=== PATIENT | female | born 1955 | race Two or more races ===

== ENCOUNTER → 2020-06-14 14:02 | Outpatient (BNVA) | payer OTHER, SELFPAY | PROVIDERS: PCP Internal Medicine Geriatric Medicine; Referring Provider Internal Medicine Geriatric Medicine; Visit Provider Nurse Practitioner | DX: K59.04 Chronic idiopathic constipation (principal); K58.1 Irritable bowel syndrome with constipation; K21.9 Gastro-esophageal reflux disease without esophagitis; K57.92 Diverticulitis of intestine, part unspecified, without perforation or abscess without bleeding; Z79.899 Other long term (current) drug therapy | CPT/HCPCS: 99212 ==

== ENCOUNTER 2020-06-21 14:03 | Outpatient (REF) | payer OTHER, SELFPAY | END 2020-06-21 14:04 | disposition home or self-care (01) | LOC: HO.LNP 14:03 | PROVIDERS: Visit Provider Otolaryngology | DX: B49 Unspecified mycosis (principal) | CPT/HCPCS: 87101; 87107 ==

== ENCOUNTER 2020-07-10 16:34 | Outpatient (REF) | payer OTHER, SELFPAY | END 2020-07-10 16:35 | disposition home or self-care (01) | LOC: HO.LAB 16:34 | PROVIDERS: Visit Provider Internal Medicine | DX: Z20.828 Contact with and (suspected) exposure to other viral communicable diseases (principal) | CPT/HCPCS: C9803; U0003 ==

== ENCOUNTER → 2020-12-17 12:51 | Outpatient (BNVA) | payer OTHER, SELFPAY | PROVIDERS: PCP Internal Medicine Geriatric Medicine; Visit Provider Nurse Practitioner | CPT/HCPCS: Q3014 ==

== ENCOUNTER 2021-04-03 10:29 | Outpatient (REF) | payer OTHER, SELFPAY ==
--- NOTE | ~2021-04-03 | MM_ITS ---
EXAMINATION: MM SCREENING DIGITAL BREAST TOMOSYNTHESIS, BILATERAL CLINICAL INFORMATION: Screening. Asymptomatic. The lifetime risk of breast cancer based on the Tyrer-Cuzick Model is 3.6%. COMPARISON: Mammography: 04/03/2020 and studies dating back to 02/01/2014 TECHNIQUE: Digital breast tomosynthesis is performed in both the craniocaudal and mediolateral oblique views along with computer-aided detection (CAD). Synthesized 2D images are generated from the tomosynthesis. FINDINGS: There are scattered areas of fibroglandular density (ACR BI-RADS breast composition Category b). There is a stable parenchymal pattern of the left breast. Within the anterosuperior aspect of the right breast, there is a new grouping of somewhat punctate calcifications however, adjacent to these there is question of microcalcifications and spot magnification views in craniocaudal and 90 degree mediolateral views of the right breast are recommended. Radiology staff will contact patient to obtain these studies. MM/MM tomosynthesis screening BI IMPRESSION: Right breast calcifications for which further evaluation with spot magnification views in craniocaudal and 90 degrees mediolateral views are recommended. ASSESSMENT: BI-RADS 0: Incomplete - Need Additional Imaging Evaluation RECOMMENDATION: 1. Additional views of the right breast 2. Targeted ultrasound if warranted after review of the additional views. 3. Radiology department staff will contact the patient for additional imaging. This patient's information was entered into a reminder system with a target due date for their next mammogram.
== END 2021-04-03 10:30 | disposition home or self-care (01) ==
LOC: HO.MAMMO 10:29
PROVIDERS: PCP Internal Medicine Geriatric Medicine; Visit Provider Internal Medicine Geriatric Medicine
DX: Z12.31 Encounter for screening mammogram for malignant neoplasm of breast (principal)
CPT/HCPCS: 77063; 77067

== ENCOUNTER 2021-04-11 10:49 | Outpatient (REF) | payer OTHER, SELFPAY ==
--- NOTE | ~2021-04-11 | MM_ITS ---
EXAMINATION: MM DIAGNOSTIC DIGITAL MAMMOGRAPHY, RIGHT CLINICAL INFORMATION: Recall from screening for new calcifications anterior upper right breast. COMPARISON: Mammography: 04/03/2021, 04/03/2020 TECHNIQUE: Digital mammography is performed in the following views: Magnification CC, magnification ML FINDINGS: There are scattered areas of fibroglandular density (ACR BI-RADS breast composition Category b). The additional views demonstrate loosely grouped relatively coarse round and oval calcifications of variable size anterior 11:30 o'clock position 5-8 in number. They have a benign appearance, possibly calcification fibroadenomatous changes. Management plan is for short interval follow-up right mammography to include magnification views in 6 months. Results are discussed with the patient at time of visit. MM/MM added views RT IMPRESSION: New loosely grouped probable benign relatively coarse calcifications anterior upper right breast. ASSESSMENT: BI-RADS 3: Probably Benign RECOMMENDATION: Diagnostic right mammography in 6 months. This patient's information was entered into a reminder system with a target due date for their next mammogram.
== END 2021-04-11 10:50 | disposition home or self-care (01) ==
LOC: HO.MAMMO 10:49
PROVIDERS: Visit Provider Internal Medicine Geriatric Medicine
DX: R92.1 Mammographic calcification found on diagnostic imaging of breast (principal)
CPT/HCPCS: 77065

== ENCOUNTER → 2021-05-12 09:53 | Outpatient (BNVA) | payer OTHER, SELFPAY | PROVIDERS: PCP Internal Medicine Geriatric Medicine; Visit Provider Nurse Practitioner | CPT/HCPCS: Q3014 ==

== ENCOUNTER 2021-05-14 11:17 | Outpatient (REF) | payer OTHER, SELFPAY ==
[2021-05-14 11:39] LABS: MANUAL DIFF FLAG NO
[2021-05-14 11:59] LABS: Basophils Absolute Auto 0.1 X10*3/uL (0.0-0.2); Basophils Percent Auto 0.9 % (0-2); Eosinophils Absolute Auto 0.1 X10*3/uL (0.0-0.4); Eosinophils Percent Auto 2.1 % (0-4); Hematocrit 40.5 % (37-47); Hemoglobin 12.9 g/dl (12.0-16.0); Imm Gran Abs Auto 0.02 X10*3/uL (0.00-0.03); Imm Gran Pct Auto 0.3 % (0.0-0.4); Lymphocytes Absolute Auto 2.5 X10*3/uL (1.2-4.9); Lymphocytes Percent Auto 38.1 % (20-40); Mean Corpuscular HGB Conc 31.9 g/dl (31.0-35.0); Mean Corpuscular Volume 84.9 fL (80-98); Mean Platelet Volume 11.8 fL (9.4-12.3); Monocytes Absolute Auto 0.5 X10*3/uL (0.1-1.2); Monocytes Percent Auto 6.9 % (2-11); Neutrophils Absolute Auto 3.4 X10*3/uL (2.0-8.3); Neutrophils Percent Auto 51.7 % (45-73); Platelet Count 216 X10*3/uL (160-400); Red Blood Count 4.77 X10*6/uL (4.20-5.50); Red Cell Distribution Width 13.5 % (11.0-16.0); White Blood Count 6.6 X10*3/uL (4.8-10.8)
[2021-05-14 12:21] LABS: Alanine Aminotransferase 47 U/L (0-31); Albumin Level 4.4 g/dL (3.5-5.0); Alkaline Phosphatase 109 U/L (39-117); Amylase 80 U/L (28-100); Anion Gap 14 (12-20); Aspartate Amino Transferase 26 U/L (5-31); Bilirubin Total 0.4 mg/dL (0.0-1.0); Blood Urea Nitrogen 15 mg/dL (9-16); Calcium 9.6 mg/dL (8.4-10.2); Carbon Dioxide 28 mmol/L (22-29); Chloride 104 mmol/L (96-108); Estimated Glomerular Filt Rate 47; Glucose Random 165 mg/dL (60-115); Lipase 29 U/L (8-78); Potassium 4.4 mmol/L (3.3-5.1); Sodium 142 mmol/L (135-145); Total Protein 6.7 g/dL (6.5-8.0)
== END 2021-05-14 11:18 | disposition home or self-care (01) ==
LOC: HO.LAB 11:17
PROVIDERS: PCP Internal Medicine Geriatric Medicine; Visit Provider Nurse Practitioner
DX: R10.12 Left upper quadrant pain (principal); R11.2 Nausea with vomiting, unspecified
CPT/HCPCS: 36415; 80053; 82150; 83690; 85025

== ENCOUNTER 2021-06-05 08:39 | Outpatient (REF) | payer OTHER, SELFPAY ==
--- NOTE | ~2021-06-05 | CT_ITS ---
EXAMINATION: CT ABDOMEN AND PELVIS WITH CONTRAST CLINICAL INFORMATION: Nausea and vomiting COMPARISON: Previous CT of the abdomen and pelvis most recent April 2020 TECHNIQUE: Multidetector volumetric images were obtained from the superior aspect of the liver through the pubic symphysis following administration 85 mL of Omnipaque 350 intravenous contrast. Sagittal and coronal reformatted images were obtained on the technologist's workstation. Oral contrast: Yes This CT examination was performed using dose optimization techniques as appropriate, variously including the following: *Automated exposure control *Adjustment of mA and/or kV according to patient size (this includes techniques or standardized protocols for targeted exams where dose is matched to indication/reason for exam; i.e. extremities or head) *Use of iterative reconstruction technique DLP: 310 mGy-cm FINDINGS: LUNG BASES: The visualized lung bases are unremarkable. LIVER, GALLBLADDER, AND BILIARY TREE: The liver is low in attenuation suggestive of fatty infiltration. No focal liver lesion or biliary ductal dilatation the gallbladder has been removed. PANCREAS: Unremarkable. SPLEEN: Unremarkable. ADRENAL GLANDS: Unremarkable. KIDNEYS AND URETERS: The kidneys are normal in size, shape, and attenuation. No hydronephrosis, hydroureter, or calculi seen. No perinephric stranding. BLADDER: Unremarkable. GASTROINTESTINAL TRACT: There is mild wall thickening, mucosal enhancement and dilatation of the distal colon suggestive of possible mild colitis. The vasa recta appears slightly prominent. This is similar in distribution to April 2020 exam. No evidence of obstruction, perforation or abscess is seen. Small and large bowel is otherwise unremarkable. The appendix is unremarkable. The stomach is unremarkable. ABDOMINAL WALL: No significant hernia is appreciated. LYMPH NODES: Normal. VASCULAR: Unremarkable. PELVIC VISCERA: Unremarkable. OSSEOUS STRUCTURES: There are degenerative changes of the spine. CT/CT abdomen pelvis w con IMPRESSION: Mild colitis of the distal colon. Fatty liver.
[2021-06-05] MEDS: Barium Sulfate Oral (Mocha) 450 ML ORAL.SUSP 900 ML PO (12:08)
[2021-06-05] MEDS: iohexoL 350 MG/ML 100 ML INFUS..BTL IV (12:08)
== END 2021-06-05 08:40 | disposition home or self-care (01) ==
LOC: HO.CT 08:39
PROVIDERS: Visit Provider Nurse Practitioner
DX: R10.12 Left upper quadrant pain (principal); R10.32 Left lower quadrant pain; R11.2 Nausea with vomiting, unspecified
CPT/HCPCS: 74177; Q9967

== ENCOUNTER → 2021-06-06 11:35 | Outpatient (BNVA) | payer OTHER, SELFPAY | PROVIDERS: PCP Internal Medicine Geriatric Medicine; Referring Provider Internal Medicine Geriatric Medicine; Visit Provider Nurse Practitioner | DX: K59.04 Chronic idiopathic constipation (principal); K21.9 Gastro-esophageal reflux disease without esophagitis; K52.9 Noninfective gastroenteritis and colitis, unspecified; R14.0 Abdominal distension (gaseous) | CPT/HCPCS: Q3014 ==

== ENCOUNTER → 2021-07-16 10:11 | Outpatient (BNVA) | payer OTHER, SELFPAY | PROVIDERS: PCP Internal Medicine Geriatric Medicine; Referring Provider Internal Medicine Geriatric Medicine; Visit Provider Nurse Practitioner | DX: K58.1 Irritable bowel syndrome with constipation (principal); K21.9 Gastro-esophageal reflux disease without esophagitis; K57.92 Diverticulitis of intestine, part unspecified, without perforation or abscess without bleeding; R10.9 Unspecified abdominal pain; R14.0 Abdominal distension (gaseous); B37.7 Candidal sepsis | CPT/HCPCS: 99212 ==

== ENCOUNTER → 2021-08-29 13:27 | Outpatient (BNVA) | payer OTHER, SELFPAY | PROVIDERS: PCP Internal Medicine Geriatric Medicine; Referring Provider Internal Medicine Geriatric Medicine; Visit Provider Nurse Practitioner | DX: K58.1 Irritable bowel syndrome with constipation (principal); K21.9 Gastro-esophageal reflux disease without esophagitis; K59.04 Chronic idiopathic constipation; R14.0 Abdominal distension (gaseous) | CPT/HCPCS: 99212 ==

== ENCOUNTER → 2021-10-17 16:18 | Outpatient (BNVA) | payer OTHER, SELFPAY | PROVIDERS: PCP Internal Medicine Geriatric Medicine; Referring Provider Internal Medicine Geriatric Medicine; Visit Provider Nurse Practitioner | DX: K59.04 Chronic idiopathic constipation (principal); K21.9 Gastro-esophageal reflux disease without esophagitis; R14.0 Abdominal distension (gaseous); Z79.899 Other long term (current) drug therapy | CPT/HCPCS: 99212 ==

== ENCOUNTER 2021-10-23 14:22 | Outpatient (REF) | payer OTHER, SELFPAY ==
--- NOTE | ~2021-10-23 | MM_ITS ---
EXAMINATION: MM DIAGNOSTIC DIGITAL BREAST TOMOSYNTHESIS, RIGHT CLINICAL INFORMATION: Short interval follow-up probable benign calcifications anterior upper right breast. The lifetime risk of breast cancer based on the Tyrer-Cuzick Model is 4%. COMPARISON: Mammography: 04/11/2021, 04/03/2021 (BI-RADS 0), 04/03/2020 TECHNIQUE: Digital breast tomosynthesis is performed in both the craniocaudal and mediolateral oblique views along with computer-aided detection (CAD). Synthesized 2D images are generated from the tomosynthesis. Additional magnification CC and magnification ML views are obtained. FINDINGS: There are scattered areas of fibroglandular density (ACR BI-RADS breast composition Category b). Parenchymal pattern is similar to prior studies. There is no developing density or interval mass or architectural abnormality. Calcifications for follow-up appear benign. There is some coalescing of the calcifications consistent with benign change. Calcifications will be reassessed again at time of annual bilateral mammography, due in 6 months. Results are provided to the patient at time of visit by the technologist. MM/MM tomosynthesis diagnostic RT IMPRESSION: No mammographic evidence of malignancy. ASSESSMENT: BI-RADS 3: Probably Benign RECOMMENDATION: Diagnostic mammography at time of annual bilateral exam, due in 6 months. This patient's information was entered into a reminder system with a target due date for their next mammogram.
== END 2021-10-23 14:23 | disposition home or self-care (01) ==
LOC: HO.MAMMO 14:22
PROVIDERS: PCP Internal Medicine Geriatric Medicine; Visit Provider Internal Medicine Geriatric Medicine
DX: R92.1 Mammographic calcification found on diagnostic imaging of breast (principal)
CPT/HCPCS: 77061; 77065

== ENCOUNTER 2021-12-12 13:55 | Outpatient (REF) | payer OTHER, SELFPAY ==
--- NOTE | ~2021-12-12 | XR_ITS ---
EXAMINATION: XR ABDOMEN WITH DECUBITUS VIEWS CLINICAL INDICATION: Left lower quadrant abdominal pain. COMPARISON: Abdominal radiograph done on 05/06/2020. TECHNIQUE: Supine and upright frontal view of the abdomen and pelvis. FINDINGS: Multiple distended small bowel loops associated with multilevel air-fluid levels are noted, suspicious for obstruction versus ileus. XR/XR abdomen w decubitus IMPRESSION: Abnormal distended bowel loops with air-fluid level, may represent ileus versus obstruction, new since 04/28/2020.
[2021-12-12 15:11] LABS: MANUAL DIFF FLAG NO
[2021-12-12 15:53] LABS: Basophils Absolute Auto 0.1 X10*3/uL (0.0-0.2); Eosinophils Absolute Auto 0.7 X10*3/uL (0.0-0.4); Hematocrit 39.3 % (37.0-47.0); Hemoglobin 12.3 g/dl (12.0-16.0); Imm Gran Abs Auto 0.02 X10*3/uL (0.00-0.03); Imm Gran Pct Auto 0.2 % (0.0-0.4); Lymphocytes Absolute Auto 3.4 X10*3/uL (1.2-4.9); Lymphocytes Percent Auto 41.6 % (20-40); Mean Corpuscular HGB Conc 31.3 g/dl (31.0-35.0); Mean Corpuscular Hemoglobin 26.2 pg (27.0-33.0); Mean Corpuscular Volume 83.6 fL (80.0-98.0); Mean Platelet Volume 11.9 fL (9.4-12.3); Monocytes Absolute Auto 0.6 X10*3/uL (0.1-1.2); Monocytes Percent Auto 7.1 % (2-11); Neutrophils Absolute Auto 3.3 x10*3/uL (2.0-8.3); Neutrophils Percent Auto 41.1 % (45-73); Platelet Count 270 X10*3/uL (160-400); Red Cell Distribution Width 13.4 % (11.0-16.0); White Blood Count 8.1 X10*3/uL (4.8-10.8)
[2021-12-12 16:23] LABS: Alanine Aminotransferase 18 U/L (0-31); Albumin Level 4.3 g/dL (3.5-5.0); Alkaline Phosphatase 113 U/L (39-117); Anion Gap 12 (12-20); Aspartate Amino Transferase 17 U/L (5-31); Bilirubin Total 0.4 mg/dL (0.0-1.0); Blood Urea Nitrogen 12 mg/dL (9-16); Calcium 9.8 mg/dL (8.4-10.2); Carbon Dioxide 27 mmol/L (22-29); Chloride 104 mmol/L (96-108); Estimated Glomerular Filt Rate 52; Glucose Random 121 mg/dL (60-115); Potassium 4.3 mmol/L (3.3-5.1); Sodium 139 mmol/L (135-145); Total Protein 6.7 g/dL (6.5-8.0)
[2021-12-12 16:44] LABS: TSH reflex Free T4 0.49 uIU/mL (0.32-4.0)
== END 2021-12-12 13:56 | disposition home or self-care (01) ==
LOC: HO.LAB 13:55
PROVIDERS: PCP Internal Medicine Geriatric Medicine; Referring Provider Internal Medicine Geriatric Medicine; Visit Provider Nurse Practitioner
DX: R10.32 Left lower quadrant pain (principal); K52.9 Noninfective gastroenteritis and colitis, unspecified; R14.0 Abdominal distension (gaseous); K59.04 Chronic idiopathic constipation; K21.9 Gastro-esophageal reflux disease without esophagitis
CPT/HCPCS: 36415; 74021; 80053; 84443; 85025; 99212

== ENCOUNTER 2021-12-12 18:02 | Observation (INO) | payer OTHER, SELFPAY ==
[2021-12-12] VITALS (7 sets, daily range): BP systolic 100–103; BP diastolic 60–71; PULSE 79–95; RESP 15–18; TEMP 36.4–36.9; O2SAT 96–97; BMI 25.4
--- NOTE | ~2021-12-12 | CT_ITS ---
EXAMINATION: CT ABDOMEN AND PELVIS WITHOUT CONTRAST CLINICAL INFORMATION: Ileus vs. obstruction on KUB. COMPARISON: CT 06/05/2021 TECHNIQUE: Multidetector volumetric imaging was performed from the lung bases through the pubic symphysis. Sagittal and coronal reformatted images were obtained on the technologist workstation. This CT examination was performed using dose optimization techniques as appropriate, variously including the following: *Automated exposure control *Adjustment of mA and/or kV according to patient size (this includes techniques or standardized protocols for targeted exams where dose is matched to indication/reason for exam; i.e. extremities or head) *Use of iterative reconstruction technique FINDINGS: The lack of intravenous contrast limits evaluation of the solid visceral organs including the liver, spleen, pancreas, and kidneys. LUNG BASES: Trace bilateral pleural effusions. Mild bibasilar atelectasis. Small pericardial effusion. Normal heart size. LIVER, GALLBLADDER, AND BILIARY TREE: Diffuse hepatic steatosis particularly involving the right lobe of liver anteriorly, segments 5 and 8. Lack of intravenous contrast limits evaluation. No focal liver lesion. Status post cholecystectomy. Status post cholecystectomy. Mild prominence of the common bile duct, not unexpected status post cholecystectomy. No intrahepatic biliary ductal dilatation. PANCREAS: Limited non-contrast evaluation is normal. No yoko-pancreatic fluid. SPLEEN: Limited non-contrast evaluation is normal. ADRENAL GLANDS: Normal; no adrenal mass. KIDNEYS AND URETERS: 2-3 mm nonobstructing right lower pole calculus. Punctate 1 mm right upper pole calculus. No hydronephrosis or hydroureter. GASTROINTESTINAL TRACT: Stomach is collapsed. Small bowel is nondilated. Nondilated but fluid-filled loops of small bowel are seen in the left abdomen. Normal appendix. There is fluid throughout the colon consistent with diarrhea. No abnormal colonic wall thickening or pericolonic inflammatory changes. ABDOMINAL WALL: No hernia seen. LYMPH NODES: No pathologically enlarged lymph nodes in the abdomen or pelvis. VASCULAR: Normal caliber abdominal aorta. BLADDER: Unremarkable. PELVIC VISCERA: Normal CT appearance of the uterus and ovaries. OSSEOUS STRUCTURES: No acute or suspicious osseous abnormalities. Lower lumbar facet arthropathy. CT/CT abdomen pelvis wo con IMPRESSION: Fluid-filled colon suggest diarrhea. No evidence of bowel obstruction. No bowel wall thickening to suggest colitis. Nonobstructing right renal calculi.
--- NOTE | ~2021-12-12 | XR_ITS ---
EXAMINATION: XR ABDOMEN KUB CLINICAL INDICATION: Abdominal distention. COMPARISON: KUB from 12/12/2021 TECHNIQUE: AP view of the abdomen. FINDINGS: Lung bases are clear. Bowel gas pattern is normal. The bowel gas is observed to level the rectum. Cholecystectomy clips in the right upper abdomen. No evidence of pneumoperitoneum. Phleboliths in the right lower pelvis. A small stone of the lower pole of the right kidney observed on abdomen CT is not well seen radiographically. XR/XR KUB IMPRESSION: Bowel gas pattern is normal. There are no abnormally dilated bowel loops. No bowel obstruction.
[2021-12-12 19:16] LABS: MANUAL DIFF FLAG NO
[2021-12-12 19:18] LABS: Basophils Absolute Auto 0.1 X10*3/uL (0.0-0.2); Basophils Percent Auto 0.7 % (0-2); Eosinophils Absolute Auto 0.6 X10*3/uL (0.0-0.4); Eosinophils Percent Auto 6.1 % (0-4); Hematocrit 37.4 % (37.0-47.0); Imm Gran Abs Auto 0.02 X10*3/uL (0.00-0.03); Imm Gran Pct Auto 0.2 % (0.0-0.4); Lymphocytes Absolute Auto 3.1 X10*3/uL (1.2-4.9); Lymphocytes Percent Auto 32.7 % (20-40); Mean Corpuscular HGB Conc 32.1 g/dl (31.0-35.0); Mean Corpuscular Hemoglobin 26.8 pg (27.0-33.0); Mean Corpuscular Volume 83.5 fL (80.0-98.0); Mean Platelet Volume 11.1 fL (9.4-12.3); Monocytes Absolute Auto 0.5 X10*3/uL (0.1-1.2); Monocytes Percent Auto 4.9 % (2-11); Neutrophils Absolute Auto 5.2 x10*3/uL (2.0-8.3); Neutrophils Percent Auto 55.4 % (45-73); Platelet Count 254 X10*3/uL (160-400); Red Blood Count 4.48 X10*6/uL (4.20-5.50); Red Cell Distribution Width 13.3 % (11.0-16.0); White Blood Count 9.5 X10*3/uL (4.8-10.8)
[2021-12-12 19:39] LABS: Alanine Aminotransferase 21 U/L (0-31); Albumin Level 4.1 g/dL (3.5-5.0); Alkaline Phosphatase 110 U/L (39-117); Anion Gap 13 (12-20); Aspartate Amino Transferase 17 U/L (5-31); Bilirubin Total 0.3 mg/dL (0.0-1.0); Blood Urea Nitrogen 14 mg/dL (9-16); Calcium 9.3 mg/dL (8.4-10.2); Carbon Dioxide 25 mmol/L (22-29); Chloride 106 mmol/L (96-108); Creatinine Clr Calc Pharmacy 45.8; Estimated Glomerular Filt Rate 53; Glucose Random 107 mg/dL (60-115); Potassium 4.1 mmol/L (3.3-5.1); Sodium 140 mmol/L (135-145); Total Protein 6.6 g/dL (6.5-8.0)
--- NOTE | 2021-12-12 19:53 | ED.ABDPAIN ---
HPI - Abdominal Pain General Chief Complaint: Abdominal Pain Stated Complaint: Abnormal labs sent by GI doctor Time Seen by Provider: 12/12/21 19:57 Source: patient Mode of arrival: ambulatory Limitations: no limitations History of Present Illness HPI narrative: 66-year-old female presents with 1 week of abdominal pain, abdominal distention, nausea, vomiting and 1 day of inability to pass flatus or stools. Patient was only able to drink water this morning has not had any other p.o. intake. Was seen by Gastroenterology today KUB indicated obstruction versus ileus. Patient is in 05/18 pain. MD elicited complaint: abdominal pain Onset (ago): week(s) (1) Pain Consistency: constant Location: diffuse Severity: severe Pain scale (0-10): 10 Quality: aching and fullness Radiation: none Migration to: no migration Exacerbating factors: eating, vomiting and movement Relieving factors: nothing Associated symptoms: nausea, vomiting and anorexia Related Data Home Medications Medication Instructions Recorded Confirmed acetaminophen 500 mg tablet 1,000 mg PO Q6H PRN 12/17/20 12/13/21 clotrimazole 1 % topical cream 1 appl TOPICAL BID 12/17/20 12/13/21 alprazolam 1 mg tablet 1 tab PO QID PRN 12/12/21 12/13/21 blood sugar diagnostic (FreeStyle 12/13/21 12/13/21 Lite Strips) brimonidine 0.2 %-timolol 0.5 % 1 drp OPHTHALMIC-RIGHT BID 12/13/21 12/13/21 eye drops (Combigan) hydrocortisone-acetic acid 1 %-2 % 5 drp OTIC (EAR) LEFT BID 12/13/21 12/13/21 ear drops linaclotide 290 mcg capsule 1 cap PO DAILY 12/13/21 12/13/21 (Linzess) kvkgnp-yyqlnfme-velhnjt 1 cap PO QID 12/13/21 12/13/21 24,000-76,000-120,000 unit capsule,delayed rel (Creon) magnesium hydroxide 400 mg/5 mL 5 ml PO BID 12/13/21 12/13/21 oral suspension (Milk of Magnesia) metformin 1,000 mg tablet 1 tab PO 12/13/21 methylphenidate HCl 10 mg tablet 1 tab PO DAILY 12/13/21 12/13/21 metoclopramide HCl 10 mg tablet 1 tab PO QID 12/13/21 12/13/21 prazosin 2 mg capsule 3 cap PO BEDTIME 12/13/21 12/13/21 prucalopride 2 mg tablet 1 tab PO DAILY 12/13/21 12/13/21 (Motegrity) quetiapine 400 mg tablet,extended 1 tab PO BEDTIME 12/13/21 12/13/21 release 24 hr sennosides 8.6 mg tablet (senna) 2 tab PO BEDTIME PRN 12/13/21 12/13/21 simethicone 180 mg capsule 1 cap PO QID 12/13/21 12/13/21 venlafaxine 150 mg 1 cap PO QAM 12/13/21 12/13/21 capsule,extended release 24 hr zolpidem 10 mg tablet 1 tab PO BEDTIME 12/13/21 12/13/21 Previous Rx's Medication Instructions Recorded omeprazole 40 mg capsule,delayed 40 mg PO DAILY #90 cap 09/08/21 release magnesium oxide 500 mg capsule 500 mg PO BID #60 cap 10/17/21 Allergies Allergy/AdvReac Type Severity Reaction Status Date / Time No Known Allergies Allergy Verified 12/12/21 19:09 [No Known Allergies*] Review of Systems Review of Systems Constitutional: No Weight loss, No Fever, No Chills, No Night Sweats, No Fatigue, No Malaise ENT/Mouth: No Hearing loss, No Ear Pain, No Nasal Congestion, No Sinus Pain, No Hoarseness, No sore throat, No Rhinorrhea, No Swallowing Difficulty Eyes: No Eye Pain, No Swelling, No Redness, No Foreign Body, No Discharge, No Vision Changes Cardiovascular: No Chest Pain, No SOB, No Dyspnea on Exertion, No Orthopnea, No Edema, No Palpitations Respiratory: No Cough, No Sputum, No Wheezing, No Smoke Exposure, No Dyspnea Gastrointestinal: Positive Nausea, Positive Vomiting, no Diarrhea, positive abdominal Pain, No Hematochezia, No Melena Genitourinary: no irregular bleeding, No Dysuria, No Urinary Frequency, No Hematuria, No Urinary Incontinence, No Urgency, No Flank Pain, No Urinary Flow Changes, No Hesitancy Musculoskeletal: No joint pain, No Myalgias, No Joint Swelling Skin: No Skin Lesions, No rash Neuro: No Weakness, No Numbness, No Paresthesias, No Loss of Consciousness, No Dizziness, No Headache Psych: No Anxiety/Panic, No Depression, No SI/HI/AH/VH, No Social Issues Heme/Lymph: No Bruising, No Bleeding,No Lymphadenopathy Endocrine: No Polyuria, No Polydipsia, No Temperature Intolerance Yes all other systems are reviewed and are negative [facility] Past Medical History Attestation statement: The following information was validated with the patient. Source: old records reviewed Medical History History of pancreatitis Surgical History History of esophagogastroduodenoscopy (EGD) Hx of colonoscopy Family History Family History Father No problems noted. Mother Diabetes Melanoma Family history of hypertension Family history of diabetes mellitus Social History Social History Household Members: None Alcohol intake: never Patient Tobacco Use Status: Never used Tobacco Use of substances other than those prescribed or required for medical reasons: No Advance Directives: No Advance Directives Information Provided: Yes Patient : No Physical Exam ED Vital Signs: Vital Signs - 24 hr 12/12/21 19:06 12/12/21 19:48 12/12/21 20:20 Temperature 97.6 F 97.6 F Pulse Rate 95 90 Respiratory Rate 18 16 15 Blood Pressure 102/60 103/71 Pulse Oximetry 97 97 12/12/21 22:04 12/12/21 22:05 12/12/21 22:06 Temperature 98.5 F Pulse Rate 80 79 Respiratory Rate 15 16 Blood Pressure 100/63 100/63 Pulse Oximetry 96 12/12/21 22:45 Temperature Pulse Rate Respiratory Rate 15 Blood Pressure Pulse Oximetry BMI result Body Mass Index 25.4 Appearance: Alert. Oriented X3. Moderate distress. Eyes: Pupils equal, round and reactive to light. Sclera nonicteric. ENT: Pharynx normal. Neck: Normal inspection. Neck supple. CVS: Tachycardic heart rate and rhythm. Pulses normal. Respiratory: No respiratory distress. Breath sounds normal. Abdomen: Soft and diffusely tender, distended, hyperactive bowel sounds. Skin: Skin warm and dry. Normal skin color. Normal skin turgor. Extremities: Gait well-balanced well coordinated. Neuro: No motor deficit. No sensory deficit. Cranial nerves 2-12 intact. Course Course Course Narrative: 66-year-old female presents for 1 week of abdominal pain, abdominal distention, poor p.o. intake, and the inability to pass flatus and stools for 1 day. Was evaluated by Gastroenterology and KUB indicated ileus versus obstruction. Will order CT scan of abdomen and pelvis, labs, pain management and fluid resuscitation. 22:30 CT scan does not indicate obstruction or volvulus however does show of fluid-filled colon. Pain is still 05/18. 22:45 discussion with hospitalist, plan of care is to admit for abdominal pain. Consultations Consultation #1: James Time: 22:45 [facility] - Abdominal Pain Differential Diagnosis Differential diagnosis: Likely abdominal pain, acute appendicitis, bowel perforation, constipation, gastritis and small bowel obstruction Medical Records Attestation: I reviewed the patient's medical records. Lab Data Attestation: I reviewed the patient's lab results. Result diagrams: 12/12/21 19:12 12/12/21 19:12 Labs: Lab Results 12/12/21 12/12/21 12/12/21 Range/Units 19:12 19:12 20:56 WBC 9.5 (4.8-10.8) X10*3/uL RBC 4.48 (4.20-5.50) X10*6/uL Hgb 12.0 (12.0-16.0) g/dl Hct 37.4 (37.0-47.0) % MCV 83.5 (80.0-98.0) fL MCH 26.8 L (27.0-33.0) pg MCHC 32.1 (31.0-35.0) g/dl RDW 13.3 (11.0-16.0) % Plt Count 254 (160-400) X10*3/uL MPV 11.1 (9.4-12.3) fL Immature Gran % (Auto) 0.2 (0.0-0.4) % Neut % (Auto) 55.4 (45-73) % Lymph % (Auto) 32.7 (20-40) % [place] % (Auto) 4.9 (2-11) % Eos % (Auto) 6.1 H (0-4) % Baso % (Auto) 0.7 (0-2) % Lymph # (Auto) 3.1 (1.2-4.9) X10*3/uL [place] # (Auto) 0.5 (0.1-1.2) X10*3/uL Eos # (Auto) 0.6 H (0.0-0.4) X10*3/uL Baso # (Auto) 0.1 (0.0-0.2) X10*3/uL Abs Immat Gran (auto) 0.02 (0.00-0.03) X10*3/uL Absolute Neuts (auto) 5.2 (2.0-8.3) x10*3/uL Absolute Nucleated RBC 0.000 (0.0-0.012) X10*3/uL Nucleated RBC % (auto) 0.0 (0.0-0.2) /100WBC PT 12.7 (9.9-13.0) SEC INR 1.1 (0.9-1.1) APTT 31.6 (24.1-38.0) SEC Sodium 140 (135-145) mmol/L Potassium 4.1 (3.3-5.1) mmol/L Chloride 106 (96-108) mmol/L Carbon Dioxide 25 (22-29) mmol/L Anion Gap 13 (12-20) BUN 14 (9-16) mg/dL Creatinine 1.04 (0.5-1.4) mg/dL Estim Creat Clear Calc 45.8 Estimated GFR 53 Random Glucose 107 (60-115) mg/dL Calcium 9.3 (8.4-10.2) mg/dL Magnesium (1.6-2.6) mg/dL Total Bilirubin 0.3 (0.0-1.0) mg/dL Direct Bilirubin (0.0-0.5) mg/dL AST 17 (5-31) U/L ALT 21 (0-31) U/L Alkaline Phosphatase 110 (39-117) U/L Troponin I High Sens (<3.5-17.0) ng/L Total Protein 6.6 (6.5-8.0) g/dL Albumin 4.1 (3.5-5.0) g/dL Lipase (8-78) U/L 12/12/21 12/12/21 Range/Units 20:56 20:56 WBC (4.8-10.8) X10*3/uL RBC (4.20-5.50) X10*6/uL Hgb (12.0-16.0) g/dl Hct (37.0-47.0) % MCV (80.0-98.0) fL MCH (27.0-33.0) pg MCHC (31.0-35.0) g/dl RDW (11.0-16.0) % Plt Count (160-400) X10*3/uL MPV (9.4-12.3) fL Immature Gran % (Auto) (0.0-0.4) % Neut % (Auto) (45-73) % Lymph % (Auto) (20-40) % [place] % (Auto) (2-11) % Eos % (Auto) (0-4) % Baso % (Auto) (0-2) % Lymph # (Auto) (1.2-4.9) X10*3/uL [place] # (Auto) (0.1-1.2) X10*3/uL Eos # (Auto) (0.0-0.4) X10*3/uL Baso # (Auto) (0.0-0.2) X10*3/uL Abs Immat Gran (auto) (0.00-0.03) X10*3/uL Absolute Neuts (auto) (2.0-8.3) x10*3/uL Absolute Nucleated RBC (0.0-0.012) X10*3/uL Nucleated RBC % (auto) (0.0-0.2) /100WBC PT (9.9-13.0) SEC INR (0.9-1.1) APTT (24.1-38.0) SEC Sodium (135-145) mmol/L Potassium (3.3-5.1) mmol/L Chloride (96-108) mmol/L Carbon Dioxide (22-29) mmol/L Anion Gap (12-20) BUN (9-16) mg/dL Creatinine (0.5-1.4) mg/dL Estim Creat Clear Calc Estimated GFR Random Glucose (60-115) mg/dL Calcium (8.4-10.2) mg/dL Magnesium 1.9 (1.6-2.6) mg/dL Total Bilirubin 0.3 (0.0-1.0) mg/dL Direct Bilirubin < 0.2 (0.0-0.5) mg/dL AST 14 (5-31) U/L ALT 20 (0-31) U/L Alkaline Phosphatase 97 (39-117) U/L Troponin I High Sens < 3.5 (<3.5-17.0) ng/L Total Protein 5.6 L (6.5-8.0) g/dL Albumin 3.6 (3.5-5.0) g/dL Lipase 138 H (8-78) U/L Imaging Data CT scan - abdomen: Attestation: I personally reviewed and interpreted this imaging study as follows: Radiologist's impression: FINDINGS: The lack of intravenous contrast limits evaluation of the solid visceral organs including the liver, spleen, pancreas, and kidneys. LUNG BASES: Trace bilateral pleural effusions. Mild bibasilar atelectasis. Small pericardial effusion. Normal heart size. LIVER, GALLBLADDER, AND BILIARY TREE: Diffuse hepatic steatosis particularly involving the right lobe of liver anteriorly, segments 5 and 8. Lack of intravenous contrast limits evaluation. No focal liver lesion. Status post cholecystectomy. Status post cholecystectomy. Mild prominence of the common bile duct, not unexpected status post cholecystectomy. No intrahepatic biliary ductal dilatation.? PANCREAS: Limited non-contrast evaluation is normal.? No oyko-pancreatic fluid.? SPLEEN: Limited non-contrast evaluation is normal. ? ADRENAL GLANDS: Normal; no adrenal mass.? KIDNEYS AND URETERS: 2-3 mm nonobstructing right lower pole calculus. Punctate 1 mm right upper pole calculus. No hydronephrosis or hydroureter. GASTROINTESTINAL TRACT: Stomach is collapsed. Small bowel is nondilated. Nondilated but fluid-filled loops of small bowel are seen in the left abdomen. Normal appendix. There is fluid throughout the colon consistent with diarrhea. No abnormal colonic wall thickening or pericolonic inflammatory changes. ABDOMINAL WALL: No hernia seen.? LYMPH NODES: No pathologically enlarged lymph nodes in the abdomen or pelvis. VASCULAR: Normal caliber abdominal aorta. BLADDER: Unremarkable.? PELVIC VISCERA: Normal CT appearance of the uterus and ovaries.? OSSEOUS STRUCTURES: No acute or suspicious osseous abnormalities. Lower lumbar facet arthropathy. CT/CT abdomen pelvis wo con IMPRESSION: Fluid-filled colon suggest diarrhea. No evidence of bowel obstruction. No bowel wall thickening to suggest colitis. ? ? Nonobstructing right renal calculi. ECG Data Attestation: I personally reviewed and interpreted this ECG as follows: ECG interpretation date: 12/12/21 ECG interpretation time: 20:06 Prior ECG tracings: available for review Interpretation: Vent. rate 83 BPM TX interval 176 ms QRS duration 80 ms QT/QTc 376/441 ms P-R-T axes 22 105 58 Normal sinus rhythm Rightward axis Low voltage QRS Nonspecific T wave abnormality Abnormal ECG When compared with ECG of 24-OCT-2018 12:37, QT has lengthened Critical Care Time Critical Care Time Critical Care Time: Yes Total Critical Care Time: 45 Attestation: I have personally provided critical care time exclusive of time spent on separately billable procedures. Time includes review of laboratory data, radiology results, discussion with consultants, and monitoring for potential decompensation. Interventions were performed as documented. Discharge Plan Discharge Clinical Impression: Abdominal pain Patient Disposition: Admitted As Inpatient
--- NOTE | 2021-12-12 19:59 | ECG_ITS ---
Test Reason : ABDOMINAL PAIN Blood Pressure : / mmHG Vent. Rate : 083 BPM Atrial Rate : 083 BPM P-R Int : 176 ms QRS Dur : 080 ms QT Int : 376 ms P-R-T Axes : 022 105 058 degrees QTc Int : 441 ms Normal sinus rhythm Rightward axis Low voltage QRS Nonspecific T wave abnormality Abnormal ECG When compared with ECG of 24-OCT-2018 12:37, QT has lengthened Referred By: Jacque Acuna Electronically Signed By:Dereck Romero
[2021-12-12] MEDS: 0.9 % Sodium Chloride 1,000 ML 999 ML IVCONT (20:18)
[2021-12-12] MEDS: ondansetron HCL 4 MG/2 ML VIAL IVPUSH (20:20)
[2021-12-12] MEDS: Morphine Sulfate 4 MG/ML CARTRIDGE IVPUSH ×2 (20:20→22:45)
[2021-12-12 21:09] LABS: INTERNATIONAL NORM RATIO 1.1 (0.9-1.1); Prothrombin Time 12.7 SEC (9.9-13.0)
[2021-12-12 21:11] LABS: Partial Thromboplastin Time 31.6 SEC (24.1-38.0)
[2021-12-12 21:20] LABS: Alanine Aminotransferase 20 U/L (0-31); Albumin Level 3.6 g/dL (3.5-5.0); Alkaline Phosphatase 97 U/L (39-117); Aspartate Amino Transferase 14 U/L (5-31); Bilirubin Direct < 0.2 mg/dL (0.0-0.5); Bilirubin Total 0.3 mg/dL (0.0-1.0); Lipase 138 U/L (8-78); Magnesium 1.9 mg/dL (1.6-2.6); Total Protein 5.6 g/dL (6.5-8.0)
[2021-12-12 21:26] LABS: Troponin-I High Sensitivity < 3.5 ng/L (<3.5-17.0)
[2021-12-13] VITALS (7 sets, daily range): BP systolic 105–122; BP diastolic 62–73; PULSE 69–84; RESP 13–20; TEMP 36.1–36.6; O2SAT 93–97; BMI 27.0
--- NOTE | 2021-12-13 00:35 | P.HPHOSP_ITS ---
History of Present Illness Date of Service: 12/13/21 Chief Complaint: abdominal pain 66-year-old female with past medical history of IBS, history of pancreatitis, diverticulitis, and GERD who presents to the hospital with complaints of abdominal pain. Patient reports that she started having abdominal pain for the past 1 week, worse on the left upper and lower quadrant, seeing her GI doctor today, who ordered an abdominal x-ray that showed ileus versus early small bowel obstruction and therefore she was sent to the hospital. Patient reports the pain is 10/10, radiating to the rest of the abdomen, last bowel movement was 5/5, she has not been passing gas for the past 24 hours. She has increased bowel sounds and gurgling. She has had nausea as well as vomiting. She has had low appetite. She denies any chest pain, no headache or change in vision, no urinary symptoms and no lower extremity edema. No numbness tingling lower weakness in extremities. On arrival to the ED patient is hemodynamically stable Labs Reviewed and are generally unremarkable Patient underwent CT abdomen which showed fluid filled colon suggesting diarrhea, no evidence of bowel obstruction Despite having multiple rounds of IV pain control patient continued to have intractable abdominal pain, nausea and therefore will be admitted for further monitoring Review of Systems Review of Systems: Yes all other systems are reviewed and are negative [facility] Medical History (Updated 12/13/21 @ 07:45 by Corazon Ramirez MD) Chronic idiopathic constipation Diverticulitis GERD (gastroesophageal reflux disease) History of pancreatitis Ileus Irritable bowel syndrome with constipation Tubular adenoma of colon Family History Father No problems noted. Mother Diabetes Melanoma Family history of hypertension Family history of diabetes mellitus Surgical History History of esophagogastroduodenoscopy (EGD) Hx of colonoscopy Social History Household Members: None Alcohol intake: never Patient Tobacco Use Status: Never used Tobacco Use of substances other than those prescribed or required for medical reasons: No Advance Directives: No Advance Directives Information Provided: Yes Patient : No Meds Allergies Allergy/AdvReac Type Severity Reaction Status Date / Time No Known Allergies Allergy Verified 12/12/21 19:09 [No Known Allergies*] Active Medications: Current Medications Pharmacy Consult (Consult Rx Perform Med Rec) 1 each MISCELLANE ONCE STA Stop: 12/12/21 22:46 Home Medications Medication Instructions Recorded Confirmed Last Taken Type acetaminophen 500 mg tablet 1,000 mg PO Q6H PRN 12/17/20 12/13/21 Unknown History clotrimazole 1 % topical cream 1 appl TOPICAL BID 12/17/20 12/13/21 Unknown History alprazolam 1 mg tablet 1 tab PO QID PRN 12/12/21 12/13/21 Unknown History blood sugar diagnostic (FreeStyle 12/13/21 12/13/21 Unknown History Lite Strips) brimonidine 0.2 %-timolol 0.5 % 1 drp OPHTHALMIC-RIGHT BID 12/13/21 12/13/21 Unknown History eye drops (Combigan) dicyclomine 10 mg capsule 1 - 2 cap PO QID PRN 12/13/21 12/13/21 Unknown History hydrocortisone-acetic acid 1 %-2 % 5 drp OTIC (EAR) LEFT BID 12/13/21 12/13/21 Unknown History ear drops linaclotide 290 mcg capsule 1 cap PO DAILY 12/13/21 12/13/21 Unknown History (Linzess) idfkel-zmxrerer-ghwwica 1 cap PO QID 12/13/21 12/13/21 Unknown History 24,000-76,000-120,000 unit capsule,delayed rel (Creon) magnesium hydroxide 400 mg/5 mL 5 ml PO BID 12/13/21 12/13/21 Unknown History oral suspension (Milk of Magnesia) metformin 1,000 mg tablet 1 tab PO 12/13/21 Unknown History methylphenidate HCl 10 mg tablet 1 tab PO DAILY 12/13/21 12/13/21 Unknown History methylphenidate HCl 20 mg 1 tab PO BID 12/13/21 12/13/21 Unknown History tablet,extended release metoclopramide HCl 10 mg tablet 1 tab PO QIDACHS 12/13/21 12/13/21 Unknown History prazosin 2 mg capsule 3 cap PO BEDTIME 12/13/21 12/13/21 Unknown History prucalopride 2 mg tablet 1 tab PO DAILY 12/13/21 12/13/21 Unknown History (Motegrity) quetiapine 400 mg tablet,extended 1 tab PO BEDTIME 12/13/21 12/13/21 Unknown History release 24 hr sennosides 8.6 mg tablet (senna) 2 tab PO BEDTIME PRN 12/13/21 12/13/21 Unknown History simethicone 180 mg capsule 1 cap PO QID 12/13/21 12/13/21 Unknown History venlafaxine 150 mg 1 cap PO QAM 12/13/21 12/13/21 Unknown History capsule,extended release 24 hr venlafaxine 75 mg capsule,extended 75 mg PO DAILY 12/13/21 Unknown History release 24 hr zolpidem 10 mg tablet 1 tab PO BEDTIME 12/13/21 12/13/21 Unknown History Physical Exam Vital Signs and Narrative: Vital Signs: Last Vital Signs Temp 98.5 F 12/12/21 22:06 Pulse 79 12/12/21 22:05 Resp 16 12/12/21 22:05 BP 100/63 12/12/21 22:05 Pulse Ox 96 12/12/21 22:04 BMI result Body Mass Index 25.4 Const: General: cooperative and no acute distress Orientation /consciousness: patient oriented x3 Eyes: General: appearance normal, both eyes and all related structures Pupils: Equal, round and reactive pupils present Resp: Effort & Inspection: normal respiratory effort Cardio: Rate: regular rate Rhythm: regular rhythm GI: Other: Abdomen is tender specially on the left upper and lower quadrant, no rebound or guarding, increased bowel sounds Palpation (GI): Soft to palpation Skin: General skin exam: no rashes or lesions noted Neuro: General: patient oriented x3 Cranial nerves: Yes Equal, round and reactive pupils present Cognition (Neuro): normal cognition Extrem: General: Yes normal to inspection and Yes no pedal edema Results Labs CBC and Chem 7: 12/13/21 05:34 12/13/21 05:34 Labs: Laboratory Results - last 24 hr 12/12/21 12/12/21 12/12/21 19:12 19:12 20:56 MCV 83.5 MCH 26.8 L MCHC 32.1 RDW 13.3 Plt Count 254 MPV 11.1 Immature Gran % (Auto) 0.2 Neut % (Auto) 55.4 Lymph % (Auto) 32.7 [facility] % (Auto) 4.9 Eos % (Auto) 6.1 H Baso % (Auto) 0.7 Lymph # (Auto) 3.1 [facility] # (Auto) 0.5 Eos # (Auto) 0.6 H Baso # (Auto) 0.1 Abs Immat Gran (auto) 0.02 Absolute Neuts (auto) 5.2 Absolute Nucleated RBC 0.000 Nucleated RBC % (auto) 0.0 PT 12.7 INR 1.1 APTT 31.6 Anion Gap 13 Estim Creat Clear Calc 45.8 Estimated GFR 53 Random Glucose 107 Calcium 9.3 Magnesium Total Bilirubin 0.3 Direct Bilirubin AST 17 ALT 21 Alkaline Phosphatase 110 Troponin I High Sens Total Protein 6.6 Albumin 4.1 Lipase 12/12/21 12/12/21 20:56 20:56 MCV MCH MCHC RDW Plt Count MPV Immature Gran % (Auto) Neut % (Auto) Lymph % (Auto) [facility] % (Auto) Eos % (Auto) Baso % (Auto) Lymph # (Auto) [facility] # (Auto) Eos # (Auto) Baso # (Auto) Abs Immat Gran (auto) Absolute Neuts (auto) Absolute Nucleated RBC Nucleated RBC % (auto) PT INR APTT Anion Gap Estim Creat Clear Calc Estimated GFR Random Glucose Calcium Magnesium 1.9 Total Bilirubin 0.3 Direct Bilirubin < 0.2 AST 14 ALT 20 Alkaline Phosphatase 97 Troponin I High Sens < 3.5 Total Protein 5.6 L Albumin 3.6 Lipase 138 H Imaging Radiologist's Impressions: Impressions Abdomen/Pelvis CT 12/12/21 21:40 IMPRESSION: Fluid-filled colon suggest diarrhea. No evidence of bowel obstruction. No bowel wall thickening to suggest colitis. Nonobstructing right renal calculi. Assessment and Plan (1) Abdominal pain: Status: Acute (2) Ileus: Status: Acute Plan 66-year-old female with past medical history of idiopathic constipation, IBS who presents to the hospital with abdominal pain found to have ileus/early obstru ction # ileus - bowel rest, nothing by mouth -pain control - IV fluids - if continues to have no bowel movement for the next 24 hours consider surgical team consult # at this time will continue her other home medications as patient otherwise stable DVT prophylaxis: Lovenox Quality Stroke Does the patient have a stroke diagnosis?: No VTE Prior VTE?: No VTE Risk Level:: Medical - low VTE Device Contraindication: Treatment Not Indicated VTE Drug Contraindication: Treatment Not Indicated
[2021-12-13] MEDS: Lactated Ringers 1,000 ML 100 ML IVCONT ×2 (01:30→12:04)
[2021-12-13] MEDS: HYDROmorphone HCl 0.5 MG/0.5 ML SYRINGE IVPUSH ×2 (03:07→09:35)
[2021-12-13 03:16] LABS: COVID-19 Test Negative (Negative)
[2021-12-13 05:43] LABS: MANUAL DIFF FLAG NO
[2021-12-13 05:48] LABS: Basophils Absolute Auto 0.1 X10*3/uL (0.0-0.2); Basophils Percent Auto 0.7 % (0-2); Eosinophils Absolute Auto 0.4 X10*3/uL (0.0-0.4); Eosinophils Percent Auto 4.9 % (0-4); Hemoglobin 10.6 g/dl (12.0-16.0); Imm Gran Abs Auto 0.03 X10*3/uL (0.00-0.03); Imm Gran Pct Auto 0.4 % (0.0-0.4); Lymphocytes Absolute Auto 2.7 X10*3/uL (1.2-4.9); Lymphocytes Percent Auto 32.3 % (20-40); Mean Corpuscular HGB Conc 31.2 g/dl (31.0-35.0); Mean Corpuscular Hemoglobin 26.3 pg (27.0-33.0); Mean Corpuscular Volume 84.4 fL (80.0-98.0); Mean Platelet Volume 11.7 fL (9.4-12.3); Monocytes Absolute Auto 0.7 X10*3/uL (0.1-1.2); Monocytes Percent Auto 8.3 % (2-11); Neutrophils Absolute Auto 4.5 x10*3/uL (2.0-8.3); Neutrophils Percent Auto 53.4 % (45-73); Platelet Count 201 X10*3/uL (160-400); Red Blood Count 4.03 X10*6/uL (4.20-5.50); Red Cell Distribution Width 13.4 % (11.0-16.0); White Blood Count 8.4 X10*3/uL (4.8-10.8)
[2021-12-13] MEDS: Omeprazole 40 MG CAPSULE.DR PO (06:02)
[2021-12-13 06:11] LABS: Anion Gap 14 (12-20); Blood Urea Nitrogen 11 mg/dL (9-16); Calcium 8.1 mg/dL (8.4-10.2); Carbon Dioxide 19 mmol/L (22-29); Chloride 109 mmol/L (96-108); Creatinine Clr Calc Pharmacy 58.1; Estimated Glomerular Filt Rate > 60; Glucose Random 124 mg/dL (60-115); Potassium 4.5 mmol/L (3.3-5.1); Sodium 137 mmol/L (135-145)
[2021-12-13 07:50] LABS: Glucose, Whole Blood 143 mg/dL (60-115)
--- NOTE | 2021-12-13 08:11 | PHA.MEDREC ---
Pharmacy Consult ? Medication Reconciliation Pharmacy has completed the medication reconciliation. Medications were entered INCORRECTLY by Overnight, some of which has been continued. Patient is no longer taking a few of the meds. Will contact MD about errors. Patient was irritated that overnight nurse did not talk to them about their meds. The list this morning was confirmed by speaking to patient being checked off as the source. Thanks Lopez
--- NOTE | 2021-12-13 09:18 | MHC.CM.PN ---
JESUS 12/13/21, EMR REVIEWED, PT ADMITTED W/? OF ILEUS, PT REPORTS SHE LIVES W/FAMILY, HAS GRAB BARS IN [place], HAS 13 HIDE EXAMINER HRS/[facility] AND HER HIDE EXAMINER IS HER DTR THROUGH [facility], PT VERIFIES PCP IS ASHANTI ZULUAGA, DTR/HIDE EXAMINER MELIZA ROBLES [phone] IS HER HCP AND COPY HAS BEEN REQUESTED, PT REPORTS SHE HAS RECEIVED MODERNA X3. D/C PLAN: HOME W/RESUMP OF HIDE EXAMINER HRS, PT WILL CALL FAMILY TO ARRANGE TRANSPORT.
[2021-12-13] MEDS: Magnesium Oxide 400 MG TABLET PO ×2 (09:34→20:10)
[2021-12-13] MEDS: QUEtiapine Fumarate 200 MG TABLET PO ×2 (09:34→20:10)
[2021-12-13] MEDS: Enoxaparin Sodium 40 MG/0.4 ML SYRINGE SUBCUT (09:34)
[2021-12-13] MEDS: Venlafaxine HCl ER 75 MG CAP.ER.24H PO (09:34)
[2021-12-13] MEDS: Venlafaxine HCl ER 150 MG CAP.ER.24H PO (09:34)
[2021-12-13 10:13] LABS: Appearance Urine CLEAR; Color Urine YELLOW; Glucose Urine UA NEG (NEG); Leukocyte Esterase Urine NEG (NEG); Nitrite Urine NEG (NEG); Specific Gravity - Urine >= 1.030 (1.005-1.025); Urine Blood NEG (NEG); Urine Ketones NEG (NEG); Urine Protein NEG (NEG-TRACE)
[2021-12-13] MEDS: ALPRAZolam 0.5 MG TABLET 1 MG PO (10:40)
[2021-12-13] MEDS: ondansetron HCL 4 MG/2 ML VIAL IVPUSH (10:42)
--- NOTE | 2021-12-13 11:26 | PM.EVENT ---
Event Note Date of Service: 12/13/21 Event Note: seen and examined this morning. admitted early this morning with abdominal pain This is a 66-year-old female with past medical history of idiopathic constipation, IBS who presents to the hospital with abdominal pain found to have ileus/early obstruction ileus CT scan showing no evidence of bowel obstruction but patient states she is not passing gas abdominal exam benign bowel rest pain control, IVF surgical consult pending Chronic constipation Continue home medication if able to be from home as linzess and motegrity are nonformulary on creon for gas and bloating according to GI notes DM hold metformin follow POCs hold off on sliding scale as patient is NPO Mood Continue Xanax, Seroquel, Effexor gerd continue omeprazole DVT prophylaxis: Lovenox Attending: dr. soto
[2021-12-13 11:39] LABS: Glucose, Whole Blood 144 mg/dL (60-115)
[2021-12-13] MEDS: Magnesium Sulfate/D5W 1 GM/100 ML PIGGYBACK IV (12:04)
--- NOTE | 2021-12-13 14:26 | P.CONGS_ITS ---
History of Present Illness Consult details Consult date: 12/13/21 Reason for consult: other (constipation abdominal pain) Review of Systems Review of Systems: Yes all other systems are reviewed and are negative Constitutional: Constitutional: Reports as per HPI Eyes: Eyes: Reports as per HPI Cardiovascular: Cardiovascular: Reports as per HPI Respiratory: Respiratory: Reports as per HPI Gastrointestinal: Comments: chronic constipation with abdominal bloating and left lower quadrant cramping in spite of multiple medications, laxatives and stool softeners Genitourinary: Genitourinary: Reports no additional female genitourinary complaints [facility] Past Medical History Medical History (Updated 12/13/21 @ 14:37 by Vasile Pappas MD) Chronic idiopathic constipation Diverticulitis GERD (gastroesophageal reflux disease) History of pancreatitis Ileus Irritable bowel syndrome with constipation Tubular adenoma of colon Family History Family History Father No problems noted. Mother Diabetes Melanoma Family history of hypertension Family history of diabetes mellitus Surgical History Surgical History History of esophagogastroduodenoscopy (EGD) Hx of colonoscopy Social History Social History Household Members: Family Housing: House Alcohol intake: never Patient Tobacco Use Status: Never used Tobacco Current occupational status: disabled Meds Allergies Allergy/AdvReac Type Severity Reaction Status Date / Time No Known Allergies Allergy Verified 12/12/21 19:09 [No Known Allergies*] Active Medications: Current Medications Acetaminophen (Acetaminophen 325 Mg Tablet) 650 mg PO Q6H PRN PRN Reason: Pain, Mild (Pain Scale 1-3) Alprazolam (Alprazolam 0.5 Mg Tablet) 1 mg PO QID PRN PRN Reason: Anxiety Last Admin: 12/13/21 10:40 Dose: 1 mg Documented by: Lipase/Protease/Amylase (Lipase/Prot/Amylase 24/76/120k 1 Cap Capsule.Dr) 1 cap PO QID ARETHA Last Admin: 12/13/21 13:22 Dose: Not Given Documented by: Dextrose (Dextrose 50 % 25 Gm/50 Ml Syringe) 25 gm IVPUSH Q15M PRN; Protocol PRN Reason: per Hypoglycemia Standing Ord. Enoxaparin Sodium (Enoxaparin Sodium 40 Mg/0.4 Ml Syringe) 40 mg SUBCUT Q24H [facility] Last Admin: 12/13/21 09:34 Dose: 40 mg Documented by: Glucose (Glucose Gel 15 Gm Gel..Gram.) 15 gm PO Q15M PRN; Protocol PRN Reason: per Hypoglycemia Standing Ord. Hydromorphone HCl (Hydromorphone Hcl 0.5 Mg/0.5 Ml Syringe) 0.5 mg IVPUSH Q4H PRN; Protocol PRN Reason: Pain, Severe (Pain Scale 7-10) Last Admin: 12/13/21 09:35 Dose: 0.5 mg Documented by: Lactated Ringer's (Lr) 1,000 mls @ 100 mls/hr IVCONT .Q10H [facility] Last Admin: 12/13/21 12:04 Dose: 100 mls/hr Documented by: Insulin Human Lispro (Insulin Lispro 100 Unit/Ml 3 Ml Vial) 0 unit SUBCUT QIDACHS [facility]; Protocol Last Admin: 12/13/21 11:46 Dose: Not Given Documented by: Magnesium Oxide (Magnesium Oxide 400 Mg Tablet) 400 mg PO BID [facility] Last Admin: 12/13/21 09:34 Dose: 400 mg Documented by: Methylphenidate HCl (Methylphenidate Hcl 10 Mg Tablet) 10 mg PO DAILY@0800 [facility] Last Admin: 12/13/21 09:26 Dose: Not Given Documented by: Morphine Sulfate (Morphine Sulfate 4 Mg/Ml Cartridge) 4 mg IVPUSH Q4H PRN; Protocol PRN Reason: Pain, Severe (Pain Scale 7-10) Non-Formulary Medication (Brimonidine-Timolol [Combigan]) 1 drop EYE-RIGHT BID [facility] Non-Formulary Medication (Linaclotide [Linzess]) 1 cap PO DAILY [facility] Non-Formulary Medication (Prucalopride [Motegrity]) 1 tab PO DAILY [facility] Omeprazole (Omeprazole 40 Mg Capsule.) 40 mg PO DAILY@0630 [facility] Last Admin: 12/13/21 06:02 Dose: 40 mg Documented by: Ondansetron HCl (Ondansetron Hcl 4 Mg/2 Ml Vial) 4 mg IVPUSH Q8H PRN PRN Reason: Nausea and Vomiting Last Admin: 12/13/21 10:42 Dose: 4 mg Documented by: Prazosin HCl (Prazosin Hcl 1 Mg Capsule) 1 mg PO BEDTIME [facility]; Protocol Prazosin HCl (Prazosin Hcl 5 Mg Capsule) 5 mg PO BEDTIME ARETHA; Protocol Quetiapine Fumarate (Quetiapine Fumarate 200 Mg Tablet) 200 mg PO BID [facility] Last Admin: 12/13/21 09:34 Dose: 200 mg Documented by: Sodium Chloride (0.9 % Sodium Chloride Flush 3 Ml Syringe) 3 ml IVFLUSH QSHIFT [facility] Last Admin: 12/13/21 08:27 Dose: Not Given Documented by: Venlafaxine HCl (Venlafaxine Hcl Er 150 Mg Cap.Er.24h) 150 mg PO DAILY [facility] Last Admin: 12/13/21 09:34 Dose: 150 mg Documented by: Venlafaxine HCl (Venlafaxine Hcl Er 75 Mg Cap.Er.24h) 75 mg PO DAILY [facility] Last Admin: 12/13/21 09:34 Dose: 75 mg Documented by: Zolpidem Tartrate (Zolpidem Tartrate 5 Mg Tablet) 5 mg PO BEDTIME [facility] Home Medications Medication Instructions Recorded Confirmed Last Taken Type acetaminophen 500 mg tablet 1,000 mg PO Q6H PRN 12/17/20 12/13/21 Unknown History alprazolam 1 mg tablet 1 tab PO QID 12/12/21 12/13/21 Unknown History blood sugar diagnostic (FreeStyle 12/13/21 12/13/21 Unknown History Lite Strips) brimonidine 0.2 %-timolol 0.5 % 1 drp OPHTHALMIC-RIGHT BID 12/13/21 12/13/21 Unknown History eye drops (Combigan) linaclotide 290 mcg capsule 1 cap PO DAILY 12/13/21 12/13/21 Unknown History (Linzess) bptakf-vizpylzf-vkqygal 1 cap PO QID 12/13/21 12/13/21 Unknown History 24,000-76,000-120,000 unit capsule,delayed rel (Creon) metformin 1,000 mg tablet 1 tab PO BID 12/13/21 12/13/21 Unknown History methylphenidate HCl 10 mg tablet 1 tab PO DAILY 12/13/21 12/13/21 Unknown His tory methylphenidate HCl 20 mg 2 tab PO DAILY 12/13/21 12/13/21 Unknown History tablet,extended release metoclopramide HCl 10 mg tablet 1 tab PO QIDACHS 12/13/21 12/13/21 Unknown History prazosin 2 mg capsule 3 cap PO BEDTIME 12/13/21 12/13/21 Unknown History prucalopride 2 mg tablet 1 tab PO DAILY 12/13/21 12/13/21 Unknown History (Motegrity) quetiapine 400 mg tablet,extended 1 tab PO BEDTIME 12/13/21 12/13/21 Unknown History release 24 hr sennosides 8.6 mg tablet (senna) 2 tab PO BEDTIME PRN 12/13/21 12/13/21 Unknown History venlafaxine 150 mg 1 cap PO QAM 12/13/21 12/13/21 Unknown History capsule,extended release 24 hr venlafaxine 75 mg capsule,extended 75 mg PO DAILY 12/13/21 12/13/21 Unknown History release 24 hr zolpidem 10 mg tablet 1 tab PO BEDTIME 12/13/21 12/13/21 Unknown History Physical Exam Vital Signs: Vital Signs: Last Vital Signs Temp 97.0 F 12/13/21 11:22 Pulse 79 12/13/21 11:22 Resp 20 12/13/21 11:22 BP 110/69 12/13/21 11:22 Pulse Ox 93 12/13/21 11:22 BMI result Body Mass Index 27.0 the patient is nontoxic and in surprisingly good spirits. She is watching television. Const: General: cooperative, healthy appearing and no acute distress Nutritional Appearance: obese Orientation/consciousness: oriented to person Limitations: no limitations HEENT: Head: Yes normal to inspection Face and sinus: Yes normal facial exam Mouth: Normal oral and palatal mucosa present, tongue normal and moist mucous membranes Eyes: General: appearance normal, both eyes and all related structures Periorbital: periorbital findings normal Eyelids: Yes eyelids normal Conjunctivae: conjunctivae normal Sclerae: sclerae normal Pupils: Equal, round and reactive pupils present EOM: EOMs intact bilaterally Neck: Neck: Yes normal visual inspection and Yes no lymphadenopathy Thyroid: Thyroid normal Carotids: other ( No carotid bruits on auscultation) Lymphatic: no lymphadenopathy noted Chest: Chest palpation & inspection: normal inspection of the chest Resp: Effort & Inspection: normal respiratory effort and able to speak in complete sentences Auscultation: clear to auscultation bilaterally Cardio: Rate: regular rate Heart sounds: S1 normal heart sound present and S2 normal heart sound present GI: Other: abdomen is obese with vague diffuse tenderness but no rebound. No peritoneal irritation to percussion is present. She has hypoactive bowel sounds. I do not appreciate any incisional umbilical or inguinal hernias. Inspection: Yes normal to inspection Percussion: Yes normal to percussion Auscultation: Hypoactive bowel sounds present Rectal Exam - Female: deferred Skin: General skin exam: elasticity normal and turgor normal Neuro: General: oriented to person Cranial nerves: Yes CN's II-XII intact bilaterally, Yes Equal, round and reactive pupils present and Yes Bilaterally intact EOM present Cognition (Neuro): normal cognition Extrem: Other: Lower extremities are free of edema, venous stasis changes and calf tenderness General: Yes normal to inspection Psych: Appearance: grossly normal Mental Status: mental status grossly normal Speech and movement: Normal speech and movement present Affect: normal affect Attitude: cooperative Thought process: Normal thought process present Thought content: Normal thought content present Insight: Good insight present (Psych) Judgement: Good judgement present (Psych) Results Labs Result diagrams: 12/13/21 05:34 12/13/21 05:34 Labs: Abnormal lab results 12/12/21 12/12/21 12/13/21 Range/Units 19:12 20:56 05:34 RBC 4.03 L (4.20-5.50) X10*6/uL Hgb 10.6 L (12.0-16.0) g/dl Hct 34.0 L (37.0-47.0) % MCH 26.8 L 26.3 L (27.0-33.0) pg Eos % (Auto) 6.1 H 4.9 H (0-4) % Eos # (Auto) 0.6 H (0.0-0.4) X10*3/uL Chloride (96-108) mmol/L Carbon Dioxide (22-29) mmol/L POC Glucose (60-115) mg/dL Random Glucose (60-115) mg/dL Calcium (8.4-10.2) mg/dL Total Protein 5.6 L (6.5-8.0) g/dL Lipase 138 H (8-78) U/L Ur Specific [place] (1.005-1.025) 12/13/21 12/13/21 12/13/21 Range/Units 05:34 07:47 09:46 RBC (4.20-5.50) X10*6/uL Hgb (12.0-16.0) g/dl Hct (37.0-47.0) % MCH (27.0-33.0) pg Eos % (Auto) (0-4) % Eos # (Auto) (0.0-0.4) X10*3/uL Chloride 109 H (96-108) mmol/L Carbon Dioxide 19 L (22-29) mmol/L POC Glucose 143 H (60-115) mg/dL Random Glucose 124 H (60-115) mg/dL Calcium 8.1 L D (8.4-10.2) mg/dL Total Protein (6.5-8.0) g/dL Lipase (8-78) U/L Ur Specific [place] >= 1.030 H (1.005-1.025) 12/13/21 Range/Units 11:35 RBC (4.20-5.50) X10*6/uL Hgb (12.0-16.0) g/dl Hct (37.0-47.0) % MCH (27.0-33.0) pg Eos % (Auto) (0-4) % Eos # (Auto) (0.0-0.4) X10*3/uL Chloride (96-108) mmol/L Carbon Dioxide (22-29) mmol/L POC Glucose 144 H (60-115) mg/dL Random Glucose (60-115) mg/dL Calcium (8.4-10.2) mg/dL Total Protein (6.5-8.0) g/dL Lipase (8-78) U/L Ur Specific [place] (1.005-1.025) Short CBC 12/12/21 12/13/21 Range/Units 19:12 05:34 WBC 9.5 8.4 (4.8-10.8) X10*3/uL Hgb 12.0 10.6 L (12.0-16.0) g/dl Hct 37.4 34.0 L (37.0-47.0) % Plt Count 254 201 (160-400) X10*3/uL BMP 12/12/21 12/13/21 19:12 05:34 Sodium 140 137 Potassium 4.1 4.5 Chloride 106 109 H Carbon Dioxide 25 19 L BUN 14 11 Creatinine 1.04 0.82 Calcium 9.3 8.1 L D Liver Function 12/12/21 12/12/21 Range/Units 19:12 20:56 Total Bilirubin 0.3 0.3 (0.0-1.0) mg/dL Direct Bilirubin < 0.2 (0.0-0.5) mg/dL AST 17 14 (5-31) U/L ALT 21 20 (0-31) U/L Alkaline Phosphatase 110 97 (39-117) U/L Albumin 4.1 3.6 (3.5-5.0) g/dL Urine 12/13/21 Range/Units 09:46 Urine Color YELLOW Urine Appearance CLEAR Urine pH 6.0 (5.0-8.0) Ur Specific [place] >= 1.030 H (1.005-1.025) Urine Protein NEG (NEG-TRACE) MG/DL Urine Glucose (UA) NEG (NEG) MG/DL All other labs normal. Imaging Abdomen CT scan report/results: report reviewed and image reviewed CT scan - pelvis: report reviewed and image reviewed Assessment and Plan (1) Chronic idiopathic constipation: Status: Acute (2) Ileus: Status: Acute (3) Abdominal pain: Status: Acute (4) Colitis: Status: Acute (5) History of pancreatitis: Status: Acute (6) LLQ abdominal pain: Status: Acute (7) Abdominal bloating: Status: Acute (8) Abdominal cramping: Status: Acute (9) Irritable bowel syndrome with constipation: Status: Acute Plan at this time, the patient does not have an acute surgical abdomen. She relays a chronic history of constipation refractory to Linzess, MiraLax, senna and o ther bowel regime. I suspect the CT findings of ileus and fluid in her colon are related to the laxatives and other bowel medications that she is taking. I would consider consultation to GI for a possible decompressive colonoscopy if she fails to improve. If the patient is truly compliant with her bowel regimen failing, the opinion of a colorectal surgeon regarding partial or total colectomy for chronic constipation would be in order. Thank you for asking me to participate in her care. Please call me with any surgical questions. Procedures Date of Service Date of Service: 12/13/21
[2021-12-13 16:32] LABS: Glucose, Whole Blood 93 mg/dL (60-115)
[2021-12-13] MEDS: Zolpidem Tartrate 5 MG TABLET PO (20:10)
[2021-12-13] MEDS: Prazosin HCL 1 MG CAPSULE PO (20:21)
[2021-12-13] MEDS: Prazosin HCL 5 MG CAPSULE PO (20:21)
[2021-12-13] MEDS: Insulin Lispro 100 UNIT/ML 3 ML VIAL SUBCUT (20:21)
[2021-12-13 20:25] LABS: Glucose, Whole Blood 167 mg/dL (60-115)
[2021-12-14] MEDS: Lactated Ringers 1,000 ML 100 ML IVCONT ×3 (00:18→17:24)
[2021-12-14 04:00] VITALS: BP 124/68; PULSE 77; RESP 17; TEMP 36.3; O2SAT 95
[2021-12-14 05:37] LABS: Hematocrit 31.5 % (37.0-47.0); Hemoglobin 10.1 g/dl (12.0-16.0); Mean Corpuscular HGB Conc 32.1 g/dl (31.0-35.0); Mean Corpuscular Hemoglobin 26.6 pg (27.0-33.0); Mean Corpuscular Volume 82.9 fL (80.0-98.0); Mean Platelet Volume 11.4 fL (9.4-12.3); Platelet Count 180 X10*3/uL (160-400); Red Cell Distribution Width 13.3 % (11.0-16.0); White Blood Count 5.1 X10*3/uL (4.8-10.8)
[2021-12-14 05:45] LABS: Anion Gap 11 (12-20); Blood Urea Nitrogen 6 mg/dL (9-16); Calcium 8.2 mg/dL (8.4-10.2); Carbon Dioxide 24 mmol/L (22-29); Chloride 109 mmol/L (96-108); Creatinine Clr Calc Pharmacy 68.1; Estimated Glomerular Filt Rate > 60; Glucose Random 103 mg/dL (60-115); Potassium 3.9 mmol/L (3.3-5.1); Sodium 140 mmol/L (135-145)
[2021-12-14] MEDS: Omeprazole 40 MG CAPSULE.DR PO (06:13)
[2021-12-14 07:27] VITALS: BP 141/80; PULSE 80; RESP 18; TEMP 36.5; O2SAT 97
[2021-12-14 07:45] LABS: Glucose, Whole Blood 121 mg/dL (60-115)
[2021-12-14] MEDS: QUEtiapine Fumarate 200 MG TABLET PO ×2 (07:59→20:56)
[2021-12-14] MEDS: ALPRAZolam 0.5 MG TABLET 1 MG PO (07:59)
[2021-12-14] MEDS: Venlafaxine HCl ER 150 MG CAP.ER.24H PO (07:59)
[2021-12-14] MEDS: Venlafaxine HCl ER 75 MG CAP.ER.24H PO (07:59)
[2021-12-14] MEDS: Magnesium Oxide 400 MG TABLET PO ×2 (08:00→20:56)
[2021-12-14] MEDS: Enoxaparin Sodium 40 MG/0.4 ML SYRINGE SUBCUT (08:01)
--- NOTE | 2021-12-14 08:06 | P.PNIM_ITS ---
Subjective Subjective Date of Service: 12/14/21 Interval History: F/u on ileus, feels better, passing gas but no BM Review of Systems no n/v, no abd pain, n Physical Exam Vital Signs: Vital Signs: Last Vital Signs Temp 97.7 F 12/14/21 07:27 Pulse 80 12/14/21 07:27 Resp 18 12/14/21 07:27 BP 141/80 H 12/14/21 07:27 Pulse Ox 97 12/14/21 07:27 BMI result Body Mass Index 27.0 Const: Other: General: AO X 3, no acute distress Resp: CTA bilateral CVS: S1,S2,RRR GI: decreased BS, NT, no distention, Skin: No rash Neuro: motor grossly intact Psych: appropriate affect Objective Data Active Medications Acetaminophen (Acetaminophen 325 Mg Tablet) 650 mg PO Q6H PRN PRN Reason: Pain, Mild (Pain Scale 1-3) Alprazolam (Alprazolam 0.5 Mg Tablet) 1 mg PO QID PRN PRN Reason: Anxiety Last Admin: 12/14/21 07:59 Dose: 1 mg Documented by: HELGA Lipase/Protease/Amylase (Lipase/Prot/Amylase 24/76/120k 1 Cap Capsule.Dr) 1 cap PO QID [facility] Last Admin: 12/13/21 20:24 Dose: Not Given Documented by: GRACIE Non-Admin Reason: NPO Dextrose (Dextrose 50 % 25 Gm/50 Ml Syringe) 25 gm IVPUSH Q15M PRN; Protocol PRN Reason: per Hypoglycemia Standing Ord. Enoxaparin Sodium (Enoxaparin Sodium 40 Mg/0.4 Ml Syringe) 40 mg SUBCUT Q24H [facility] Last Admin: 12/14/21 08:01 Dose: 40 mg Documented by: HELGA Glucose (Glucose Gel 15 Gm Gel..Gram.) 15 gm PO Q15M PRN; Protocol PRN Reason: per Hypoglycemia Standing Ord. Hydromorphone HCl (Hydromorphone Hcl 0.5 Mg/0.5 Ml Syringe) 0.5 mg IVPUSH Q4H PRN; Protocol PRN Reason: Pain, Severe (Pain Scale 7-10) Last Admin: 12/13/21 09:35 Dose: 0.5 mg Documented by: HELGA Lactated Ringer's (Lr) 1,000 mls @ 100 mls/hr IVCONT .Q10H [facility] Last Admin: 12/14/21 08:00 Dose: 100 mls/hr Documented by: HELGA Insulin Human Lispro (Insulin Lispro 100 Unit/Ml 3 Ml Vial) 0 unit SUBCUT QIDACHS [facility]; Protocol Last Admin: 12/14/21 07:48 Dose: Not Given Documented by: HELGA Non-Admin Reason: No Insulin Coverage Magnesium Oxide (Magnesium Oxide 400 Mg Tablet) 400 mg PO BID [facility] Last Admin: 12/14/21 08:00 Dose: 400 mg Documented by: HELGA Methylphenidate HCl (Methylphenidate Hcl 10 Mg Tablet) 10 mg PO DAILY@0800 [facility] Last Admin: 12/13/21 09:26 Dose: Not Given Documented by: STEFANI Non-Admin Reason: Patient Refused Morphine Sulfate (Morphine Sulfate 4 Mg/Ml Cartridge) 4 mg IVPUSH Q4H PRN; Protocol PRN Reason: Pain, Severe (Pain Scale 7-10) Non-Formulary Medication (Brimonidine-Timolol [Combigan]) 1 drop EYE-RIGHT BID [facility] Non-Formulary Medication (Linaclotide [Linzess]) 1 cap PO DAILY [facility] Non-Formulary Medication (Prucalopride [Motegrity]) 1 tab PO DAILY [facility] Omeprazole (Omeprazole 40 Mg Capsule.Dr) 40 mg PO DAILY@0630 [facility] Last Admin: 12/14/21 06:13 Dose: 40 mg Documented by: CHAD Ondansetron HCl (Ondansetron Hcl 4 Mg/2 Ml Vial) 4 mg IVPUSH Q8H PRN PRN Reason: Nausea and Vomiting Last Admin: 12/13/21 10:42 Dose: 4 mg Documented by: HELGA Prazosin HCl (Prazosin Hcl 1 Mg Capsule) 1 mg PO BEDTIME [facility]; Protocol Last Admin: 12/13/21 20:21 Dose: 1 mg Documented by: GRACIE Prazosin HCl (Prazosin Hcl 5 Mg Capsule) 5 mg PO BEDTIME [facility]; Protocol Last Admin: 12/13/21 20:21 Dose: 5 mg Documented by: GRACIE Quetiapine Fumarate (Quetiapine Fumarate 200 Mg Tablet) 200 mg PO BID [facility] Last Admin: 12/14/21 07:59 Dose: 200 mg Documented by: HELGA Sodium Chloride (0.9 % Sodium Chloride Flush 3 Ml Syringe) 3 ml IVFLUSH QSHIFT [facility] Last Admin: 12/14/21 00:22 Dose: Not Given Documented by: CHAD Non-Admin Reason: IV Running Venlafaxine HCl (Venlafaxine Hcl Er 150 Mg Cap.Er.24h) 150 mg PO DAILY [facility] Last Admin: 12/14/21 07:59 Dose: 150 mg Documented by: HELGA Venlafaxine HCl (Venlafaxine Hcl Er 75 Mg Cap.Er.24h) 75 mg PO DAILY [facility] Last Admin: 12/14/21 07:59 Dose: 75 mg Documented by: HELGA Zolpidem Tartrate (Zolpidem Tartrate 5 Mg Tablet) 5 mg PO BEDTIME [facility] Last Admin: 12/13/21 20:10 Dose: 5 mg Documented by: GRACIE Labs CBC & Chem 7: 12/14/21 05:07 12/14/21 05:07 Labs: Laboratory Results - last 24 hr 12/13/21 12/13/21 12/13/21 09:46 11:35 16:19 MCV MCH MCHC RDW Plt Count MPV Absolute Nucleated RBC Nucleated RBC % (auto) Anion Gap Estim Creat Clear Calc Estimated GFR POC Glucose 144 H 93 Random Glucose Calcium Urine Color YELLOW Urine Appearance CLEAR Urine pH 6.0 Ur Specific [place] >= 1.030 H Urine Protein NEG Urine Glucose (UA) NEG Urine Ketones NEG Urine Blood NEG Urine Nitrite NEG Ur Leukocyte Esterase NEG 12/13/21 12/14/21 12/14/21 20:14 05:07 05:07 MCV 82.9 MCH 26.6 L MCHC 32.1 RDW 13.3 Plt Count 180 MPV 11.4 Absolute Nucleated RBC 0.000 Nucleated RBC % (auto) 0.0 Anion Gap 11 L Estim Creat Clear Calc 68.1 Estimated GFR > 60 POC Glucose 167 H Random Glucose 103 Calcium 8.2 L Urine Color Urine Appearance Urine pH Ur Specific [place] Urine Protein Urine Glucose (UA) Urine Ketones Urine Blood Urine Nitrite Ur Leukocyte Esterase 12/14/21 07:36 MCV MCH MCHC RDW Plt Count MPV Absolute Nucleated RBC Nucleated RBC % (auto) Anion Gap Estim Creat Clear Calc Estimated GFR POC Glucose 121 H Random Glucose Calcium Urine Color Urine Appearance Urine pH Ur Specific [place] Urine Protein Urine Glucose (UA) Urine Ketones Urine Blood Urine Nitrite Ur Leukocyte Esterase Assessment and Plan (1) Irritable bowel syndrome with constipation: Status: Acute (2) Chronic idiopathic constipation: Status: Acute Plan 66-year-old female with past medical history of idiopathic constipation, IBS who presents to the hospital with abdominal pain found to have ileus/early obstruction ileus CT scan showing no evidence of bowel obstruction, she is passing gas, abdomen is very soft Seen by surgery non indiction for surgery will get KUB this AM and start liquid diet--she hasn't eaten in 4 days Chronic constipation Continue home medication if able to be from home as linzess and motegrity are nonformulary on creon for gas and bloating according to GI notes DM hold metformin follow POCs SSI Mood Continue Xanax, Seroquel, Effexor gerd continue omeprazole Quality Stroke Does the patient have a stroke diagnosis?: No VTE Prior VTE?: No VTE Risk Level:: Medical - low VTE Device Contraindication: Treatment Not Indicated VTE Drug Contraindication: Treatment Not Indicated
[2021-12-14 11:36] VITALS: BP 125/73; PULSE 82; RESP 18; TEMP 36.4; O2SAT 95
[2021-12-14 11:45] LABS: Glucose, Whole Blood 117 mg/dL (60-115)
[2021-12-14] MEDS: Lipase/Prot/Amylase 24/76/120K 1 CAP CAPSULE.DR PO ×3 (13:06→20:55)
[2021-12-14 15:54] VITALS: BP 165/85; PULSE 99; RESP 18; TEMP 36.2; O2SAT 96
[2021-12-14 16:34] LABS: Glucose, Whole Blood 171 mg/dL (60-115)
[2021-12-14] MEDS: Insulin Lispro 100 UNIT/ML 3 ML VIAL SUBCUT (17:25)
[2021-12-14 19:26] VITALS: BP 155/78; PULSE 81; RESP 18; TEMP 36.4; O2SAT 97
[2021-12-14 19:59] LABS: Glucose, Whole Blood 112 mg/dL (60-115)
[2021-12-14] MEDS: Zolpidem Tartrate 5 MG TABLET PO (20:54)
[2021-12-14] MEDS: Prazosin HCL 5 MG CAPSULE PO (20:55)
[2021-12-14] MEDS: Prazosin HCL 1 MG CAPSULE PO (20:56)
[2021-12-15] VITALS: BP 131/68; PULSE 76; RESP 17; TEMP 36.2; O2SAT 98
[2021-12-15 04:00] VITALS: BP 106/58; PULSE 68; RESP 18; TEMP 36.3; O2SAT 98
--- NOTE | 2021-12-15 04:37 | PC.NURSE ---
HOSPITALIST ON DUTY MADE AWARE OF PATIENTS IVF DROPPING TO [facility] STATUS AND MD STATED KEEP OFF FOR NOW AND SHE WILL REVIEW PT INFORMATION.
--- NOTE | 2021-12-15 05:27 | PC.NURSE ---
HOSPITALIST STATED VIA TIGER TEXT, NO NEEDS FOR IVF .
[2021-12-15] MEDS: Omeprazole 40 MG CAPSULE.DR PO (05:59)
[2021-12-15 07:17] LABS: Glucose, Whole Blood 141 mg/dL (60-115)
[2021-12-15 07:40] VITALS: BP 136/77; PULSE 75; RESP 18; TEMP 36; O2SAT 96
--- NOTE | 2021-12-15 07:47 | P.PNGS_ITS ---
Subjective Subjective Date of Service: 12/15/21 Patient reports: no new complaints, still having pain, flatus and no bowel movement Interval history: The pt reports little interval improvement since I saw her on Wednesday. She is still not having any bowel movements but noted that she had a little bit of flatus. She otherwise does not have any new complaints such as chest pain, difficulty breathing, upper lower extremity weakness, headache visual changes Physical Exam Vital Signs: Vital Signs: Last Vital Signs Temp 96.8 F 12/15/21 07:40 Pulse 75 12/15/21 07:40 Resp 18 12/15/21 07:40 BP 136/77 12/15/21 07:40 Pulse Ox 96 12/15/21 07:40 BMI result Body Mass Index 27.0 On exam, she is nontoxic NC/AT PERRLA, EOMI Sclera are anicteric, conjunctiva pink and moist abd exam unchanged, hypoactive bowel sounds, no R/R/G, diffuse, non-specific discomfort no Hernias appreciated Objective Data Active Medications Acetaminophen (Acetaminophen 325 Mg Tablet) 650 mg PO Q6H PRN PRN Reason: Pain, Mild (Pain Scale 1-3) Alprazolam (Alprazolam 0.5 Mg Tablet) 1 mg PO QID PRN PRN Reason: Anxiety Last Admin: 12/14/21 07:59 Dose: 1 mg Documented by: HELGA Lipase/Protease/Amylase (Lipase/Prot/Amylase 24/76/120k 1 Cap Capsule.Dr) 1 cap PO QID [facility] Last Admin: 12/14/21 20:55 Dose: 1 cap Documented by: MAKSIM Dextrose (Dextrose 50 % 25 Gm/50 Ml Syringe) 25 gm IVPUSH Q15M PRN; Protocol PRN Reason: per Hypoglycemia Standing Ord. Enoxaparin Sodium (Enoxaparin Sodium 40 Mg/0.4 Ml Syringe) 40 mg SUBCUT Q24H [facility] Last Admin: 12/14/21 08:01 Dose: 40 mg Documented by: HELGA Glucose (Glucose Gel 15 Gm Gel..Gram.) 15 gm PO Q15M PRN; Protocol PRN Reason: per Hypoglycemia Standing Ord. Hydromorphone HCl (Hydromorphone Hcl 0.5 Mg/0.5 Ml Syringe) 0.5 mg IVPUSH Q4H PRN; Protocol PRN Reason: Pain, Severe (Pain Scale 7-10) Last Admin: 12/13/21 09:35 Dose: 0.5 mg Documented by: HELGA Insulin Human Lispro (Insulin Lispro 100 Unit/Ml 3 Ml Vial) 0 unit SUBCUT QIDACHS [facility]; Protocol Last Admin: 12/14/21 20:44 Dose: Not Given Documented by: MAKSIM Non-Admin Reason: No Insulin Coverage Magnesium Oxide (Magnesium Oxide 400 Mg Tablet) 400 mg PO BID [facility] Last Admin: 12/14/21 20:56 Dose: 400 mg Documented by: MAKSIM Methylphenidate HCl (Methylphenidate Hcl 10 Mg Tablet) 10 mg PO DAILY@0800 [facility] Last Admin: 12/14/21 09:42 Dose: Not Given Documented by: HELGA Non-Admin Reason: Patient Refused Morphine Sulfate (Morphine Sulfate 4 Mg/Ml Cartridge) 4 mg IVPUSH Q4H PRN; Protocol PRN Reason: Pain, Severe (Pain Scale 7-10) Non-Formulary Medication (Brimonidine-Timolol [Combigan]) 1 drop EYE-RIGHT BID [facility] Non-Formulary Medication (Linaclotide [Linzess]) 1 cap PO DAILY [facility] Non-Formulary Medication (Prucalopride [Motegrity]) 1 tab PO DAILY [facility] Omeprazole (Omeprazole 40 Mg Capsule.Dr) 40 mg PO DAILY@0630 [facility] Last Admin: 12/15/21 05:59 Dose: 40 mg Documented by: SUGEY Ondansetron HCl (Ondansetron Hcl 4 Mg/2 Ml Vial) 4 mg IVPUSH Q8H PRN PRN Reason: Nausea and Vomiting Last Admin: 12/13/21 10:42 Dose: 4 mg Documented by: HELGA Prazosin HCl (Prazosin Hcl 1 Mg Capsule) 1 mg PO BEDTIME [facility]; Protocol Last Admin: 12/14/21 20:56 Dose: 1 mg Documented by: MAKSIM Prazosin HCl (Prazosin Hcl 5 Mg Capsule) 5 mg PO BEDTIME [facility]; Protocol Last Admin: 12/14/21 20:55 Dose: 5 mg Documented by: MAKSIM Quetiapine Fumarate (Quetiapine Fumarate 200 Mg Tablet) 200 mg PO BID [facility] Last Admin: 12/14/21 20:56 Dose: 200 mg Documented by: MAKSIM Sodium Chloride (0.9 % Sodium Chloride Flush 3 Ml Syringe) 3 ml IVFLUSH QSHIFT [facility] Last Admin: 12/15/21 00:15 Dose: Not Given Documented by: SUGEY Non-Admin Reason: IV Running Venlafaxine HCl (Venlafaxine Hcl Er 150 Mg Cap.Er.24h) 150 mg PO DAILY [facility] Last Admin: 12/14/21 07:59 Dose: 150 mg Documented by: HELGA Venlafaxine HCl (Venlafaxine Hcl Er 75 Mg Cap.Er.24h) 75 mg PO DAILY [facility] Last Admin: 12/14/21 07:59 Dose: 75 mg Documented by: HELGA Zolpidem Tartrate (Zolpidem Tartrate 5 Mg Tablet) 5 mg PO BEDTIME [facility] Last Admin: 12/14/21 20:54 Dose: 5 mg Documented by: MAKSIM Labs CBC & Chem 7: 12/14/21 05:07 12/14/21 05:07 Labs: Laboratory Results - last 24 hr 12/14/21 12/14/21 12/14/21 11:40 15:57 19:54 POC Glucose 117 H 171 H 112 12/15/21 07:03 POC Glucose 141 H Procedures Date of Service Date of Service: 12/15/21 Progress Note: A&P Assessment and plan (1) Irritable bowel syndrome with constipation: Status: Acute (2) Chronic idiopathic constipation: Status: Acute (3) Ileus: Status: Acute (4) Abdominal pain: Status: Acute Plan The patient is not made much progress over the past few days, but does not have an acute surgical abdomen. Consider GI consultation. Please call me with surgical questions. Time Spent With Patient Time: Total time spent is greater than 50% in coordination of care (as documented) at patient's floor/unit and/or counseling patient: Quality Stroke Does the patient have a stroke diagnosis?: No VTE Prior VTE?: No VTE Risk Level:: Medical - low VTE Device Contraindication: Treatment Not Indicated VTE Drug Contraindication: Treatment Not Indicated
[2021-12-15] MEDS: ALPRAZolam 0.5 MG TABLET 1 MG PO (08:56)
[2021-12-15] MEDS: Venlafaxine HCl ER 150 MG CAP.ER.24H PO (08:56)
[2021-12-15] MEDS: Lipase/Prot/Amylase 24/76/120K 1 CAP CAPSULE.DR PO ×4 (08:57→21:10)
[2021-12-15] MEDS: Magnesium Oxide 400 MG TABLET PO ×2 (08:57→21:11)
[2021-12-15] MEDS: QUEtiapine Fumarate 200 MG TABLET PO ×2 (08:57→21:11)
[2021-12-15] MEDS: Venlafaxine HCl ER 75 MG CAP.ER.24H PO (08:57)
[2021-12-15] MEDS: Enoxaparin Sodium 40 MG/0.4 ML SYRINGE SUBCUT (08:57)
[2021-12-15] MEDS: 0.9 % Sodium Chloride Flush 3 ML SYRINGE IVFLUSH ×2 (09:03→16:11)
--- NOTE | 2021-12-15 10:03 | PM.GICN ---
History of Present Illness Data of Consult Service Date: 12/15/21 Requesting physician: Edita Chan Primary Care Provider: Ham Hay MD HPI Reason for consult: constipation 66-year-old female with past medical history of IBS, pancreatitis, diverticulitis, and GERD who I am seeing for assessment of constipation and abdominal pain She was admitted with c/o abdominal pain for 5d in the left upper and lower quadrants which is 10/10 in severity and radiating thru out whole abdomen. Worse with food, better if doesn' eat. She has had this pain before but never as bad. she says she has had constipation all her life at least from teenage years. TSH hAS been normal. She admits to nausea and emesis which is non bloody. She has not passed stool since admission but is passing gas ok. Denies rectal bleeding, or melena. abdominal x-ray showed ileus versus early small bowel obstruction CT abdomen with fluid filled colon suggesting diarrhea, no evidence of bowel obstruction, no imaging to suggest pancreatitis --hepatic steatosis, hyperintense material in right colon (non contrast CT) repeat KUB 12/14/21--normal per radiology report Lbs: MILD ANEMIA, mild lipase elevation, nml LFT Last colonoscopy:[facility]---2019--melanosis coli, reduced motility --no polyps Review of Systems Review of Systems: Constitutional : No Weight loss, No Fever, No Chills ENT/Mouth : No sore throat, No Rhinorrhea Eyes: No Swelling, No Redness Cardiovascular : No Chest Pain, No SOB, No Edema Respiratory : No Cough, No Sputum, No Wheezing Gastrointestinal : see HPI Genitourinary : NO Dysuria, No Urinary Frequency, No Hematuria, No Urgency Musculoskeletal : No joint pain, No Myalgias, No Joint Swelling Skin : No Skin Lesions, No rash Neuro : No Weakness, No Numbness, No Dizziness, No Headache Psych : No Anxiety/Panic, No Depression Heme/Lymph: No Bruising, No Lymphadenopathy Endocrine : No Polyuria, No Polydipsia All other systems reviewed and are negative. [facility] Past Medical History Medical History (Updated 12/15/21 @ 14:37 by Jairo Collins MD) Chronic idiopathic constipation Diverticulitis GERD (gastroesophageal reflux disease) History of pancreatitis Ileus Irritable bowel syndrome with constipation Tubular adenoma of colon Family History Family History Father No problems noted. Mother Diabetes Melanoma Family history of hypertension Family history of diabetes mellitus Pertinent family history: no FH of CRC Family history: reviewed and not pertinent Surgical History Surgical History History of esophagogastroduodenoscopy (EGD) Hx of colonoscopy Social History Social History Household Members: Family Housing: House Alcohol intake: never Patient Tobacco Use Status: Never used Tobacco Current occupational status: [employer] Allergies Allergy/AdvReac Type Severity Reaction Status Date / Time No Known Allergies Allergy Verified 12/12/21 19:09 [No Known Allergies*] Active Medications: Current Medications Acetaminophen (Acetaminophen 325 Mg Tablet) 650 mg PO Q6H PRN PRN Reason: Pain, Mild (Pain Scale 1-3) Alprazolam (Alprazolam 0.5 Mg Tablet) 1 mg PO QID PRN PRN Reason: Anxiety Last Admin: 12/15/21 08:56 Dose: 1 mg Documented by: Lipase/Protease/Amylase (Lipase/Prot/Amylase 24/76/120k 1 Cap Capsule.Dr) 1 cap PO QID [facility] Last Admin: 12/15/21 08:57 Dose: 1 cap Documented by: Brimonidine Tartrate (Brimonidine Tartrate 0.2% Oph 5 Ml Bottle) 1 drop EYE-RIGHT BID [facility] Dextrose (Dextrose 50 % 25 Gm/50 Ml Syringe) 25 gm IVPUSH Q15M PRN; Protocol PRN Reason: per Hypoglycemia Standing Ord. Enoxaparin Sodium (Enoxaparin Sodium 40 Mg/0.4 Ml Syringe) 40 mg SUBCUT Q24H [facility] Last Admin: 12/15/21 08:57 Dose: 40 mg Documented by: Glucose (Glucose Gel 15 Gm Gel..Gram.) 15 gm PO Q15M PRN; Protocol PRN Reason: per Hypoglycemia Standing Ord. Hydromorphone HCl (Hydromorphone Hcl 0.5 Mg/0.5 Ml Syringe) 0.5 mg IVPUSH Q4H PRN; Protocol PRN Reason: Pain, Severe (Pain Scale 7-10) Last Admin: 12/13/21 09:35 Dose: 0.5 mg Documented by: Insulin Human Lispro (Insulin Lispro 100 Unit/Ml 3 Ml Vial) 0 unit SUBCUT QIDACHS [facility]; Protocol Last Admin: 12/15/21 09:00 Dose: Not Given Documented by: Magnesium Oxide (Magnesium Oxide 400 Mg Tablet) 400 mg PO BID [facility] Last Admin: 12/15/21 08:57 Dose: 400 mg Documented by: Methylphenidate HCl (Methylphenidate Hcl 10 Mg Tablet) 10 mg PO DAILY@0800 [facility] Last Admin: 12/15/21 09:03 Dose: Not Given Documented by: Morphine Sulfate (Morphine Sulfate 4 Mg/Ml Cartridge) 4 mg IVPUSH Q4H PRN; Protocol PRN Reason: Pain, Severe (Pain Scale 7-10) Non-Formulary Medication (Linaclotide [Linzess]) 1 cap PO DAILY [facility] Non-Formulary Medication (Prucalopride [Motegrity]) 1 tab PO DAILY [facility] Omeprazole (Omeprazole 40 Mg Capsule.Dr) 40 mg PO DAILY@0630 [facility] Last Admin: 12/15/21 05:59 Dose: 40 mg Documented by: Ondansetron HCl (Ondansetron Hcl 4 Mg/2 Ml Vial) 4 mg IVPUSH Q8H PRN PRN Reason: Nausea and Vomiting Last Admin: 12/13/21 10:42 Dose: 4 mg Documented by: Prazosin HCl (Prazosin Hcl 1 Mg Capsule) 1 mg PO BEDTIME [facility]; Protocol Last Admin: 12/14/21 20:56 Dose: 1 mg Documented by: Prazosin HCl (Prazosin Hcl 5 Mg Capsule) 5 mg PO BEDTIME [facility]; Protocol Last Admin: 12/14/21 20:55 Dose: 5 mg Documented by: Quetiapine Fumarate (Quetiapine Fumarate 200 Mg Tablet) 200 mg PO BID [facility] Last Admin: 12/15/21 08:57 Dose: 200 mg Documented by: Sodium Chloride (0.9 % Sodium Chloride Flush 3 Ml Syringe) 3 ml IVFLUSH QSHIFT [facility] Last Admin: 12/15/21 09:03 Dose: 3 ml Documented by: Timolol Maleate (Timolol Maleate 0.5 % Oph [place] 5 Ml Drbtl) 1 drop EYE-RIGHT BID [facility] Venlafaxine HCl (Venlafaxine Hcl Er 150 Mg Cap.Er.24h) 150 mg PO DAILY [facility] Last Admin: 12/15/21 08:56 Dose: 150 mg Documented by: Venlafaxine HCl (Venlafaxine Hcl Er 75 Mg Cap.Er.24h) 75 mg PO DAILY [facility] Last Admin: 12/15/21 08:57 Dose: 75 mg Documented by: Zolpidem Tartrate (Zolpidem Tartrate 5 Mg Tablet) 5 mg PO BEDTIME [facility] Last Admin: 12/14/21 20:54 Dose: 5 mg Documented by: Home Medications Medication Instructions Recorded Confirmed Last Taken Type acetaminophen 500 mg tablet 1,000 mg PO Q6H PRN 12/17/20 12/13/21 Unknown History alprazolam 1 mg tablet 1 tab PO QID 12/12/21 12/13/21 Unknown History blood sugar diagnostic (FreeStyle 12/13/21 12/13/21 Unknown History Lite Strips) brimonidine 0.2 %-timolol 0.5 % 1 drp OPHTHALMIC-RIGHT BID 12/13/21 12/13/21 Unknown History eye drops (Combigan) linaclotide 290 mcg capsule 1 cap PO DAILY 12/13/21 12/13/21 Unknown History (Linzess) [id number] 1 cap PO QID 12/13/21 12/13/21 Unknown History 24,000-76,000-120,000 unit capsule,delayed rel (Creon) metformin 1,000 mg tablet 1 tab PO BID 12/13/21 12/13/21 Unknown History methylphenidate HCl 10 mg tablet 1 tab PO DAILY 12/13/21 12/13/21 Unknown History methylphenidate HCl 20 mg 2 tab PO DAILY 12/13/21 12/13/21 Unknown History tablet,extended release metoclopramide HCl 10 mg tablet 1 tab PO QIDACHS 12/13/21 12/13/21 Unknown History prazosin 2 mg capsule 3 cap PO BEDTIME 12/13/21 12/13/21 Unknown History prucalopride 2 mg tablet 1 tab PO DAILY 12/13/21 12/13/21 Unknown History (Motegrity) quetiapine 400 mg tablet,extended 1 tab PO BEDTIME 12/13/21 12/13/21 Unknown History release 24 hr sennosides 8.6 mg tablet (senna) 2 tab PO BEDTIME PRN 12/13/21 12/13/21 Unknown History venlafaxine 150 mg 1 cap PO QAM 12/13/21 12/13/21 Unknown History capsule,extended release 24 hr venlafaxine 75 mg capsule,extended 75 mg PO DAILY 12/13/21 12/13/21 Unknown History release 24 hr zolpidem 10 mg tablet 1 tab PO BEDTIME 12/13/21 12/13/21 Unknown History Physical Exam Vital Signs: Vital Signs: Last Vital Signs Temp 96.8 F 12/15/21 07:40 Pulse 75 12/15/21 07:40 Resp 18 12/15/21 07:40 BP 136/77 12/15/21 07:40 Pulse Ox 96 12/15/21 07:40 BMI result Body Mass Index 27.0 Const: Other: General: AO X 3, no acute distress Resp: CTA bilateral CVS: S1,S2,RRR GI: decreased BS, NT, no distention, Skin: No rash Neuro: motor grossly intact Psych: appropriate affect General: cooperative, healthy appearing and no acute distress Nutritional Appearance: obese Orientation/consciousness: oriented to person and patient oriented x3 Limitations: no limitations HEENT: Head: Yes normal to inspection Face and sinus: Yes normal facial exam Mouth: Normal oral and palatal mucosa present, tongue normal and moist mucous membranes Eyes: General: appearance normal, both eyes and all related structures Periorbital: periorbital findings normal Eyelids: Yes eyelids normal Conjunctivae: conjunctivae normal Sclerae: sclerae normal Pupils: Equal, round and reactive pupils present EOM: EOMs intact bilaterally Neck: Neck: Yes normal visual inspection and Yes no lymphadenopathy Thyroid: Thyroid normal Carotids: other ( No carotid bruits on auscultation) Lymphatic: no lymphadenopathy noted Chest: Chest palpation & inspection: normal inspection of the chest Resp: Effort & Inspection: normal respiratory effort and able to speak in complete sentences Auscultation: clear to auscultation bilaterally Cardio: Rate: regular rate Rhythm: regular rhythm Heart sounds: S1 normal heart sound present and S2 normal heart sound present GI: Inspection: Yes normal to inspection Palpation (GI): Soft to palpation Percussion: Yes normal to percussion Auscultation: Hypoactive bowel sounds present Rectal Exam - Female: deferred Skin: General skin exam: no rashes or lesions noted, elasticity normal and turgor normal Neuro: General: oriented to person and patient oriented x3 Cranial nerves: Yes CN's II-XII intact bilaterally, Yes Equal, round and reactive pupils present and Yes Bilaterally intact EOM present Cognition (Neuro): normal cognition Extrem: General: Yes normal to inspection and Yes no pedal edema Psych: Appearance: grossly normal Mental Status: mental status grossly normal Speech and movement: Normal speech and movement present Affect: normal affect Attitude: cooperative Thought process: Normal thought process present Thought content: Normal thought content present Insight: Good insight present (Psych) Judgement: Good judgement present (Psych) Results Labs CBC & Chem 7: 12/14/21 05:07 12/14/21 05:[address] scan - abdomen: Attestation: I personally reviewed and interpreted this imaging study as follows: My impression: fluid filled small bowel and colon, hepatic steatosis, hyperintesne material right colon, thickened esophagus , nml pancreas Assessment and Plan (1) Abdominal pain: Status: Acute (2) Chronic idiopathic constipation: Status: Acute (3) Ileus: Status: Acute (4) Anemia: Status: Acute Plan 1/ Abdominal pain and constipation, imaging with possible ileus, may be due to viral etiology, functional disease, neoplasia, or mass, lyte disturbance 2/ anemia, may be dilutional or due to sal jerome tear, esophagitis, or PUD 3/ mild raised lipase, may be due to ileus rather than pancreatitis, PLAN: 1/ plan for EGD and colonoscopy tomorrow to r/o colonic lesion, PUd, ulcers, colitis, may take bx to r/o Hirschsprungs 2/ can have clears for the meantime and bowel prep from 7-8 pm tonight 3/ check lytes incl K, Mag, Ca, PO4 and optimize these Procedures Date of Service Date of Service: 12/15/21
[2021-12-15 10:42] LABS: Glucose, Whole Blood 153 mg/dL (60-115)
[2021-12-15] MEDS: timoloL maleate 0.5 % Oph Sol 5 ML DRBTL 1 DROP EYE-RIGHT ×2 (10:59→21:15)
[2021-12-15] MEDS: Brimonidine Tartrate 0.2% Oph 5 ML BOTTLE 1 DROP EYE-RIGHT ×2 (10:59→21:12)
[2021-12-15 11:28] VITALS: BP 129/72; PULSE 81; RESP 18; TEMP 36.2; O2SAT 94
[2021-12-15] MEDS: Insulin Lispro 100 UNIT/ML 3 ML VIAL SUBCUT (11:49)
--- NOTE | 2021-12-15 13:52 | HO.PM.IMPN ---
Subjective Subjective Date of Service: 12/15/21 Review of Systems Follow up ileus Still with no flatus or BM Mild abd pain able to take liquids Physical Exam Vital Signs: Vital Signs: Last Vital Signs Temp 97.1 F 12/15/21 11:28 Pulse 81 12/15/21 11:28 Resp 18 12/15/21 11:28 BP 129/72 12/15/21 11:28 Pulse Ox 94 12/15/21 11:28 BMI result Body Mass Index 27.0 Appearing in no acute distress lung sounds are clear to auscultation heart regular rate rhythm, clear S1, S2 positive bowel sounds,epigastric pain neuro patient is alert x3, no focal deficits Objective Data Active Medications Acetaminophen (Acetaminophen 325 Mg Tablet) 650 mg PO Q6H PRN PRN Reason: Pain, Mild (Pain Scale 1-3) Alprazolam (Alprazolam 0.5 Mg Tablet) 1 mg PO QID PRN PRN Reason: Anxiety Last Admin: 12/15/21 08:56 Dose: 1 mg Documented by: HELGA Lipase/Protease/Amylase (Lipase/Prot/Amylase 24/76/120k 1 Cap Capsule.Dr) 1 cap PO QID [facility] Last Admin: 12/15/21 11:49 Dose: 1 cap Documented by: HLEGA Brimonidine Tartrate (Brimonidine Tartrate 0.2% Oph 5 Ml Bottle) 1 drop EYE-RIGHT BID [facility] Last Admin: 12/15/21 10:59 Dose: 1 drop Documented by: HELGA Dextrose (Dextrose 50 % 25 Gm/50 Ml Syringe) 25 gm IVPUSH Q15M PRN; Protocol PRN Reason: per Hypoglycemia Standing Ord. Enoxaparin Sodium (Enoxaparin Sodium 40 Mg/0.4 Ml Syringe) 40 mg SUBCUT Q24H [facility] Last Admin: 12/15/21 08:57 Dose: 40 mg Documented by: HELGA Glucose (Glucose Gel 15 Gm Gel..Gram.) 15 gm PO Q15M PRN; Protocol PRN Reason: per Hypoglycemia Standing Ord. Hydromorphone HCl (Hydromorphone Hcl 0.5 Mg/0.5 Ml Syringe) 0.5 mg IVPUSH Q4H PRN; Protocol PRN Reason: Pain, Severe (Pain Scale 7-10) Last Admin: 12/13/21 09:35 Dose: 0.5 mg Documented by: HELGA Insulin Human Lispro (Insulin Lispro 100 Unit/Ml 3 Ml Vial) 0 unit SUBCUT QIDACHS [facility]; Protocol Last Admin: 12/15/21 11:49 Dose: 2 unit Documented by: HELGA Magnesium Oxide (Magnesium Oxide 400 Mg Tablet) 400 mg PO BID [facility] Last Admin: 12/15/21 08:57 Dose: 400 mg Documented by: HELGA Methylphenidate HCl (Methylphenidate Hcl 10 Mg Tablet) 10 mg PO DAILY@0800 [facility] Last Admin: 12/15/21 09:03 Dose: Not Given Documented by: HELGA Non-Admin Reason: Patient Refused Morphine Sulfate (Morphine Sulfate 4 Mg/Ml Cartridge) 4 mg IVPUSH Q4H PRN; Protocol PRN Reason: Pain, Severe (Pain Scale 7-10) Patient Own Med ( Linaclotide [Linzess ] 290 Mcg Capsule)) 1 each PO DAILY [facility] Last Admin: 12/15/21 10:58 Dose: Not Given Documented by: HELGA Non-Admin Reason: pt took her own Non-Formulary Medication (Prucalopride [Motegrity]) 1 tab PO DAILY [facility] Omeprazole (Omeprazole 40 Mg Capsule.) 40 mg PO DAILY@0630 [facility] Last Admin: 12/15/21 05:59 Dose: 40 mg Documented by: SUGEY Ondansetron HCl (Ondansetron Hcl 4 Mg/2 Ml Vial) 4 mg IVPUSH Q8H PRN PRN Reason: Nausea and Vomiting Last Admin: 12/13/21 10:42 Dose: 4 mg Documented by: HELGA Prazosin HCl (Prazosin Hcl 1 Mg Capsule) 1 mg PO BEDTIME [facility]; Protocol Last Admin: 12/14/21 20:56 Dose: 1 mg Documented by: MAKSIM Prazosin HCl (Prazosin Hcl 5 Mg Capsule) 5 mg PO BEDTIME [facility]; Protocol Last Admin: 12/14/21 20:55 Dose: 5 mg Documented by: MAKSIM Quetiapine Fumarate (Quetiapine Fumarate 200 Mg Tablet) 200 mg PO BID [facility] Last Admin: 12/15/21 08:57 Dose: 200 mg Documented by: HELGA Sodium Chloride (0.9 % Sodium Chloride Flush 3 Ml Syringe) 3 ml IVFLUSH QSHIFT [facility] Last Admin: 12/15/21 09:03 Dose: 3 ml Documented by: HELGA Timolol Maleate (Timolol Maleate 0.5 % Oph [place] 5 Ml Drbtl) 1 drop EYE-RIGHT BID [facility] Last Admin: 12/15/21 10:59 Dose: 1 drop Documented by: HELGA Venlafaxine HCl (Venlafaxine Hcl Er 150 Mg Cap.Er.24h) 150 mg PO DAILY [facility] Last Admin: 12/15/21 08:56 Dose: 150 mg Documented by: HELGA Venlafaxine HCl (Venlafaxine Hcl Er 75 Mg Cap.Er.24h) 75 mg PO DAILY [facility] Last Admin: 12/15/21 08:57 Dose: 75 mg Documented by: HELGA Zolpidem Tartrate (Zolpidem Tartrate 5 Mg Tablet) 5 mg PO BEDTIME [facility] Last Admin: 12/14/21 20:54 Dose: 5 mg Documented by: LINDAIT Labs CBC & Chem 7: 12/14/21 05:07 12/14/21 05:07 Labs: Laboratory Results - last 24 hr 12/14/21 12/14/21 12/15/21 15:57 19:54 07:03 POC Glucose 171 H 112 141 H 12/15/21 10:29 POC Glucose 153 H Assessment and Plan (1) Ileus: Status: Acute Plan 66-year-old female with past medical history of idiopathic constipation, IBS who presents to the hospital with abdominal pain found to have ileus/early obstruction ileus. still with some pain, no flatus or BM CT scan showing no evidence of bowel obstruction Seen by surgery non indiction for surgery KUB not impressive, has been on liquid diet Seen by GI, colonoscopy tomorrow NPO after midnight, colo prep Chronic constipation Continue home medication if able to be from home as linzess and motegrity are nonformulary on creon for gas and bloating according to GI notes DM hold metformin follow POCs SSI Mood Continue Xanax, Seroquel, Effexor gerd continue omeprazole DVT prophylaxis with Lovenox Attending Dr. Nelson Full code Quality Stroke Does the patient have a stroke diagnosis?: No VTE Prior VTE?: No VTE Risk Level:: Medical - low VTE Device Contraindication: Treatment Not Indicated VTE Drug Contraindication: Treatment Not Indicated
[2021-12-15 15:37] VITALS: BP 141/78; PULSE 76; RESP 18; TEMP 36.2; O2SAT 97
[2021-12-15 16:07] LABS: Glucose, Whole Blood 140 mg/dL (60-115)
[2021-12-15] MEDS: PEG 3350/Na Sulf,Bicarb,Cl/KCL 4,000 ML SOLN.RECON 4000 ML PO (16:11)
[2021-12-15 19:53] VITALS: BP 152/83; PULSE 76; RESP 19; TEMP 36.1; O2SAT 97
[2021-12-15 20:07] LABS: Glucose, Whole Blood 133 mg/dL (60-115)
[2021-12-15] MEDS: Zolpidem Tartrate 5 MG TABLET PO (21:10)
[2021-12-15] MEDS: Prazosin HCL 5 MG CAPSULE PO (21:11)
[2021-12-15] MEDS: Prazosin HCL 1 MG CAPSULE PO (21:14)
[2021-12-16] VITALS (7 sets, daily range): BP systolic 107–154; BP diastolic 61–89; PULSE 65–82; RESP 17–19; TEMP 36.1–36.5; O2SAT 95–99
[2021-12-16] MEDS: 0.9 % Sodium Chloride Flush 3 ML SYRINGE IVFLUSH ×3 (00:50→16:33)
[2021-12-16 07:46] LABS: Glucose, Whole Blood 150 mg/dL (60-115)
[2021-12-16] MEDS: Venlafaxine HCl ER 75 MG CAP.ER.24H PO (09:09)
[2021-12-16] MEDS: Venlafaxine HCl ER 150 MG CAP.ER.24H PO (09:09)
[2021-12-16] MEDS: Lipase/Prot/Amylase 24/76/120K 1 CAP CAPSULE.DR PO ×2 (09:09→16:34)
[2021-12-16] MEDS: Magnesium Oxide 400 MG TABLET PO (09:09)
[2021-12-16] MEDS: Enoxaparin Sodium 40 MG/0.4 ML SYRINGE SUBCUT (09:09)
[2021-12-16] MEDS: timoloL maleate 0.5 % Oph Sol 5 ML DRBTL 1 DROP EYE-RIGHT (09:10)
[2021-12-16] MEDS: Brimonidine Tartrate 0.2% Oph 5 ML BOTTLE 1 DROP EYE-RIGHT (09:10)
[2021-12-16 10:55] LABS: Glucose, Whole Blood 148 mg/dL (60-115)
[2021-12-16 12:31] LABS: Glucose, Whole Blood 147 mg/dL (60-115)
--- NOTE | 2021-12-16 13:18 | PC.NURSE ---
dr verma aware patient was administered lovenox at 9am
--- NOTE | 2021-12-16 14:38 | MHC.SHP ---
Pre-Procedural Eval Section A Date of Service: 12/16/21 The patient is an INPATIENT: Yes The History & Physical has been completed within 30 days and I have reviewed it.: Yes Section B Chief Complaint: Ileus Allergies: Allergies Allergy/AdvReac Type Severity Reaction Status Date / Time No Known Allergies Allergy Verified 12/12/21 19:09 [No Known Allergies*] Plan Diagnosis/Plan: Unchanged I have reviewed the history and physical and performed a pertinent physical examination on my patient. No changes have occurred unless specified.
--- NOTE | 2021-12-16 14:39 | P.BOP_ITS ---
Brief Operative Note Date of Service: 12/16/21 Pre-op diagnosis: abdominal pain, constipation Post-op diagnosis: same Procedure: see op note Surgeon: Jairo Collins MD Anesthesia: MAC Was an Composition Professor used for this Procedure?: No Estimated blood loss (mL): 0 Condition: stable Disposition: PACU
--- NOTE | 2021-12-16 14:39 | W.PM.OPN ---
Operative Note Operative Note Date of Service: 12/16/21 Narrative: Operative Information Procedure Description: EGD, Colonoscopy Indication: abdominal pain, constipation Anesthesia: MAC FLEXIBLE TRANSORAL UPPER GASTROINTESTINAL ENDOSCOPY AND COLONOSCOPY PROCEDURE NOTE UPPER ENDOSCOPY Consent: Indications for the procedure and potential complications of bleeding, perforation, reaction to medications and missed diagnosis were discussed with the patient and informed consent was obtained. Instrument: Olympus GIF H 190 J mid size upper endoscope Monitoring: Vital signs and clinical assessment, continuous EKG monitoring, Pulse oximetry, Carbon Dioxide monitoring and blood pressure monitoring were done throughout the procedure. Procedure: The patient was placed in the left lateral decubitis position and pre-procedure medications were administered and a bite block was placed. The endoscope was inserted into the mouth and advanced under direct vision to the third part of duodenum. A careful inspection was made as the upper endoscope was withdrawn including a retroflexed examination of the proximal stomach; Findings and interventions are described below. Findings: Larynx:normal Esophagus: GE junction at 38 cm, diaphragm hiatus at 38 cm, normal mucosa Stomach: Patchy gastritis. Biopsies were obtained. Grade 2 flap valve on retroflexed examination of the cardia. Duodenum: Normal bulb and descending duodenum, bx taken Intervention: Biopsies as noted above COLONOSCOPY Instrument: Olympus variable stiffness adult scope 190L Colonoscopy Monitoring: Vital signs and clinical assessment, continuous EKG monitoring, Pulse oximetry, Carbon Dioxide monitoring and blood pressure monitoring were done throughout the procedure. Colon withdrawal time was 10 minutes. Procedure: The patient was placed in the left lateral decubitis position and pre-procedure medications were administered. After a digital rectal examination of the ano-rectum, the video colonoscope was inserted into the rectum and advanced through the colon to the cecum/TI. The colonoscope was slowly withdrawn in a retrograde panoramic fashion and the colon mucosa was carefully examined including a retroflexed view of the rectum. Findings and interventions are described below. Procedure Difficulty: moderate due to redundant colon Findings: Terminal Ileum-normal Cecum:normal Ascending Colon: melanosis coli noted Transverse Colon -normal Descending Colon:normal Sigmoid Colon: normal Rectum: Retroflexion with small internal hemorrhoids, grade I--deep rectal bx for r/o hirschsprungs not taken as patient has lovenox today Anorectum - normal Colon preparation: [place] Bowel Preparation Scale Right colon; 2 Transverse colon: 3 Left colon; 3 (0 = Unprepared colon segment with mucosa not seen due to solid stool that cannot be cleared. 1 = Portion of mucosa of the colon segment seen, but other areas of the colon segment not well seen due to staining, residual stool and/or opaque liquid. 2 = Minor amount of residual staining, small fragments of stool and/or opaque liquid, but mucosa of colon segment seen well. 3 = Entire mucosa of colon segment seen well with no residual staining, small fragments of stool or opaque liquid) Impression and Post Procedure Diagnosis: Endoscopy Findings: gastritis Colonoscopy Findings: redundant colon internal hemorrhoids Plan: Await Pathology results High fiber diet leaflet, good fluid intake at least 4-5 glasses a day avoid straining at stool, epsom salts and sitz bath, anusol supps or cream scheduled miralax BID, can also use motegrity 1 mg daily Above findings were reviewed with the patient and relevant handouts were provided if indicated.
--- NOTE | 2021-12-16 14:46 | P.CONAN_ITS ---
[facility] Active Problems Active Problems: All Active Problems (Updated 12/15/21 @ 14:37 by Jairo Collins MD) Anemia (Acute) Irritable bowel syndrome with constipation (Acute) Chronic idiopathic constipation (Acute) Ileus (Acute) Abdominal pain (Acute) [place] infection, disseminated (Acute) Colitis (Acute) History of pancreatitis (Acute) LLQ abdominal pain (Acute) Nausea and vomiting (Acute) LUQ pain (Acute) Abdominal bloating (Acute) Abdominal cramping (Acute) Past Medical History Medical History Chronic idiopathic constipation Diverticulitis GERD (gastroesophageal reflux disease) History of pancreatitis Ileus Irritable bowel syndrome with constipation Tubular adenoma of colon Family History Family History Father No problems noted. Mother Diabetes Melanoma Family history of hypertension Family history of diabetes mellitus Surgical History Surgical History History of esophagogastroduodenoscopy (EGD) Hx of colonoscopy History of Problems with Anesthesia: No Social History Social History Household Members: Family Housing: House Alcohol intake: never Patient Tobacco Use Status: Never used Tobacco Current occupational status: disabled Meds Allergies Allergy/AdvReac Type Severity Reaction Status Date / Time No Known Allergies Allergy Verified 12/12/21 19:09 [No Known Allergies*] Active Medications: Current Medications Acetaminophen (Acetaminophen 325 Mg Tablet) 650 mg PO Q6H PRN PRN Reason: Pain, Mild (Pain Scale 1-3) Alprazolam (Alprazolam 0.5 Mg Tablet) 1 mg PO QID PRN PRN Reason: Anxiety Last Admin: 12/15/21 08:56 Dose: 1 mg Documented by: Lipase/Protease/Amylase (Lipase/Prot/Amylase 24/76/120k 1 Cap Capsule.) 1 cap PO QID [facility] Last Admin: 12/16/21 12:14 Dose: Not Given Documented by: Brimonidine Tartrate (Brimonidine Tartrate 0.2% Oph 5 Ml Bottle) 1 drop EYE- RIGHT BID [facility] Last Admin: 12/16/21 09:10 Dose: 1 drop Documented by: Dextrose (Dextrose 50 % 25 Gm/50 Ml Syringe) 25 gm IVPUSH Q15M PRN; Protocol PRN Reason: per Hypoglycemia Standing Ord. Enoxaparin Sodium (Enoxaparin Sodium 40 Mg/0.4 Ml Syringe) 40 mg SUBCUT Q24H [facility] Last Admin: 12/16/21 09:09 Dose: 40 mg Documented by: Glucose (Glucose Gel 15 Gm Gel..Gram.) 15 gm PO Q15M PRN; Protocol PRN Reason: per Hypoglycemia Standing Ord. Hydromorphone HCl (Hydromorphone Hcl 0.5 Mg/0.5 Ml Syringe) 0.5 mg IVPUSH Q4H PRN; Protocol PRN Reason: Pain, Severe (Pain Scale 7-10) Last Admin: 12/13/21 09:35 Dose: 0.5 mg Documented by: Insulin Human Lispro (Insulin Lispro 100 Unit/Ml 3 Ml Vial) 0 unit SUBCUT QIDACHS [facility]; Protocol Last Admin: 12/16/21 11:01 Dose: Not Given Documented by: Magnesium Oxide (Magnesium Oxide 400 Mg Tablet) 400 mg PO BID [facility] Last Admin: 12/16/21 09:09 Dose: 400 mg Documented by: Methylphenidate HCl (Methylphenidate Hcl 10 Mg Tablet) 10 mg PO DAILY@0800 [facility] Last Admin: 12/16/21 08:54 Dose: Not Given Documented by: Morphine Sulfate (Morphine Sulfate 4 Mg/Ml Cartridge) 4 mg IVPUSH Q4H PRN; Protocol PRN Reason: Pain, Severe (Pain Scale 7-10) Patient Own Med ( Linaclotide [Linzess ] 290 Mcg Capsule)) 1 each PO DAILY [facility] Last Admin: 12/16/21 09:09 Dose: 1 each Documented by: Non-Formulary Medication (Prucalopride [Motegrity]) 1 tab PO DAILY [facility] Omeprazole (Omeprazole 40 Mg Capsule.Dr) 40 mg PO DAILY@0630 [facility] Last Admin: 12/16/21 05:48 Dose: Not Given Documented by: Ondansetron HCl (Ondansetron Hcl 4 Mg/2 Ml Vial) 4 mg IVPUSH Q6H PRN PRN Reason: Nausea and Vomiting Prazosin HCl (Prazosin Hcl 1 Mg Capsule) 1 mg PO BEDTIME [facility]; Protocol Last Admin: 12/15/21 21:14 Dose: 1 mg Documented by: Prazosin HCl (Prazosin Hcl 5 Mg Capsule) 5 mg PO BEDTIME [facility]; Protocol Last Admin: 12/15/21 21:11 Dose: 5 mg Documented by: Quetiapine Fumarate (Quetiapine Fumarate 200 Mg Tablet) 200 mg PO BID [facility] Last Admin: 12/16/21 09:18 Dose: Not Given Documented by: Sodium Chloride (0.9 % Sodium Chloride Flush 3 Ml Syringe) 3 ml IVFLUSH QSHIFT [facility] Last Admin: 12/16/21 09:09 Dose: 3 ml Documented by: Timolol Maleate (Timolol Maleate 0.5 % Oph [place] 5 Ml Drbtl) 1 drop EYE-RIGHT BID [facility] Last Admin: 12/16/21 09:10 Dose: 1 drop Documented by: Venlafaxine HCl (Venlafaxine Hcl Er 150 Mg Cap.Er.24h) 150 mg PO DAILY [facility] Last Admin: 12/16/21 09:09 Dose: 150 mg Documented by: Venlafaxine HCl (Venlafaxine Hcl Er 75 Mg Cap.Er.24h) 75 mg PO DAILY [facility] Last Admin: 12/16/21 09:09 Dose: 75 mg Documented by: Zolpidem Tartrate (Zolpidem Tartrate 5 Mg Tablet) 5 mg PO BEDTIME [facility] Last Admin: 12/15/21 21:10 Dose: 5 mg Documented by: Home Medications Medication Instructions Recorded Confirmed Last Taken Type acetaminophen 500 mg tablet 1,000 mg PO Q6H PRN 12/17/20 12/13/21 Unknown History alprazolam 1 mg tablet 1 tab PO QID 12/12/21 12/13/21 Unknown History blood sugar diagnostic (FreeStyle 12/13/21 12/13/21 Unknown History Lite Strips) brimonidine 0.2 %-timolol 0.5 % 1 drp OPHTHALMIC-RIGHT BID 12/13/21 12/13/21 Unknown History eye drops (Combigan) linaclotide 290 mcg capsule 1 cap PO DAILY 12/13/21 12/13/21 Unknown History (Linzess) erblvz-[id number] 1 cap PO QID 12/13/21 12/13/21 Unknown History 24,000-76,000-120,000 unit capsule,delayed rel (Creon) metformin 1,000 mg tablet 1 tab PO BID 12/13/21 12/13/21 Unknown History methylphenidate HCl 10 mg tablet 1 tab PO DAILY 12/13/21 12/13/21 Unknown History methylphenidate HCl 20 mg 2 tab PO DAILY 12/13/21 12/13/21 Unknown History tablet,extended release metoclopramide HCl 10 mg tablet 1 tab PO QIDACHS 12/13/21 12/13/21 Unknown H istory prazosin 2 mg capsule 3 cap PO BEDTIME 12/13/21 12/13/21 Unknown History prucalopride 2 mg tablet 1 tab PO DAILY 12/13/21 12/13/21 Unknown History (Motegrity) quetiapine 400 mg tablet,extended 1 tab PO BEDTIME 12/13/21 12/13/21 Unknown History release 24 hr sennosides 8.6 mg tablet (senna) 2 tab PO BEDTIME PRN 12/13/21 12/13/21 Unknown History venlafaxine 150 mg 1 cap PO QAM 12/13/21 12/13/21 Unknown History capsule,extended release 24 hr venlafaxine 75 mg capsule,extended 75 mg PO DAILY 12/13/21 12/13/21 Unknown History release 24 hr zolpidem 10 mg tablet 1 tab PO BEDTIME 12/13/21 12/13/21 Unknown History Exam Exam Date and Time: December 16, 2021 144 Height,Weight and Vital Signs: Height 5 ft 1 in Weight 64.9 kg Last Vital Signs Temp 97 F 12/16/21 13:45 Pulse 82 12/16/21 13:45 Resp 18 12/16/21 13:45 BP 146/89 H 12/16/21 13:45 Pulse Ox 96 12/16/21 13:45 Pertinent Lab Results Pertinent Lab Results: Laboratory Tests 12/12/21 12/12/21 12/12/21 19:12 19:12 20:56 WBC 9.5 RBC 4.48 Hgb 12.0 Hct 37.4 MCV 83.5 MCH 26.8 L MCHC 32.1 RDW 13.3 Plt Count 254 MPV 11.1 Immature Gran % (Auto) 0.2 Neut % (Auto) 55.4 Lymph % (Auto) 32.7 [place] % (Auto) 4.9 Eos % (Auto) 6.1 H Baso % (Auto) 0.7 Lymph # (Auto) 3.1 [place] # (Auto) 0.5 Eos # (Auto) 0.6 H Baso # (Auto) 0.1 Abs Immat Gran (auto) 0.02 Absolute Neuts (auto) 5.2 Absolute Nucleated RBC 0.000 Nucleated RBC % (auto) 0.0 PT 12.7 INR 1.1 APTT 31.6 Sodium 140 Potassium 4.1 Chloride 106 Carbon Dioxide 25 Anion Gap 13 BUN 14 Creatinine 1.04 Estim Creat Clear Calc 45.8 Estimated GFR 53 POC Glucose Random Glucose 107 Calcium 9.3 Magnesium Total Bilirubin 0.3 Direct Bilirubin AST 17 ALT 21 Alkaline Phosphatase 110 Troponin I High Sens Total Protein 6.6 Albumin 4.1 Lipase Urine Color Urine Appearance Urine pH Ur Specific [place] Urine Protein Urine Glucose (UA) Urine Ketones Urine Blood Urine Nitrite Ur Leukocyte Esterase COVID-19 ([facility]) COVID-19 [employer] 12/12/21 12/12/21 12/13/21 20:56 20:56 02:55 WBC RBC Hgb Hct MCV MCH MCHC RDW Plt Count MPV Immature Gran % (Auto) Neut % (Auto) Lymph % (Auto) [place] % (Auto) Eos % (Auto) Baso % (Auto) Lymph # (Auto) [place] # (Auto) Eos # (Auto) Baso # (Auto) Abs Immat Gran (auto) Absolute Neuts (auto) Absolute Nucleated RBC Nucleated RBC % (auto) PT INR APTT Sodium Potassium Chloride Carbon Dioxide Anion Gap BUN Creatinine Estim Creat Clear Calc Estimated GFR POC Glucose Random Glucose Calcium Magnesium 1.9 Total Bilirubin 0.3 Direct Bilirubin < 0.2 AST 14 ALT 20 Alkaline Phosphatase 97 Troponin I High Sens < 3.5 Total Protein 5.6 L Albumin 3.6 Lipase 138 H Urine Color Urine Appearance Urine pH Ur Specific [place] Urine Protein Urine Glucose (UA) Urine Ketones Urine Blood Urine Nitrite Ur Leukocyte Esterase COVID-19 ([facility]) Negative COVID-19 Clin Com See Note 12/13/21 12/13/21 12/13/21 05:34 05:34 07:47 WBC 8.4 RBC 4.03 L Hgb 10.6 L Hct 34.0 L MCV 84.4 MCH 26.3 L MCHC 31.2 RDW 13.4 Plt Count 201 MPV 11.7 Immature Gran % (Auto) 0.4 Neut % (Auto) 53.4 Lymph % (Auto) 32.3 [place] % (Auto) 8.3 Eos % (Auto) 4.9 H Baso % (Auto) 0.7 Lymph # (Auto) 2.7 [place] # (Auto) 0.7 Eos # (Auto) 0.4 Baso # (Auto) 0.1 Abs Immat Gran (auto) 0.03 Absolute Neuts (auto) 4.5 Absolute Nucleated RBC 0.000 Nucleated RBC % (auto) 0.0 PT INR APTT Sodium 137 Potassium 4.5 Chloride 109 H Carbon Dioxide 19 L Anion Gap 14 BUN 11 Creatinine 0.82 Estim Creat Clear Calc 58.1 Estimated GFR > 60 POC Glucose 143 H Random Glucose 124 H Calcium 8.1 L D Magnesium Total Bilirubin Direct Bilirubin AST ALT Alkaline Phosphatase Troponin I High Sens Total Protein Albumin Lipase Urine Color Urine Appearance Urine pH Ur Specific [place] Urine Protein Urine Glucose (UA) Urine Ketones Urine Blood Urine Nitrite Ur Leukocyte Esterase COVID-19 ([facility]) COVID-19 [employer] 12/13/21 12/13/21 12/13/21 09:46 11:35 16:19 WBC RBC Hgb Hct MCV MCH MCHC RDW Plt Count MPV Immature Gran % (Auto) Neut % (Auto) Lymph % (Auto) [place] % (Auto) Eos % (Auto) Baso % (Auto) Lymph # (Auto) [place] # (Auto) Eos # (Auto) Baso # (Auto) Abs Immat Gran (auto) Absolute Neuts (auto) Absolute Nucleated RBC Nucleated RBC % (auto) PT INR APTT Sodium Potassium Chloride Carbon Dioxide Anion Gap BUN Creatinine Estim Creat Clear Calc Estimated GFR POC Glucose 144 H 93 Random Glucose Calcium Magnesium Total Bilirubin Direct Bilirubin AST ALT Alkaline Phosphatase Troponin I High Sens Total Protein Albumin Lipase Urine Color YELLOW Urine Appearance CLEAR Urine pH 6.0 Ur Specific [place] >= 1.030 H Urine Protein NEG Urine Glucose (UA) NEG Urine Ketones NEG Urine Blood NEG Urine Nitrite NEG Ur Leukocyte Esterase NEG COVID-19 ([facility]) COVID-19 [employer] 12/13/21 12/14/21 12/14/21 20:14 05:07 05:07 WBC 5.1 RBC 3.80 L Hgb 10.1 L Hct 31.5 L MCV 82.9 MCH 26.6 L MCHC 32.1 RDW 13.3 Plt Count 180 MPV 11.4 Immature Gran % (Auto) Neut % (Auto) Lymph % (Auto) [place] % (Auto) Eos % (Auto) Baso % (Auto) Lymph # (Auto) [place] # (Auto) Eos # (Auto) Baso # (Auto) Abs Immat Gran (auto) Absolute Neuts (auto) Absolute Nucleated RBC 0.000 Nucleated RBC % (auto) 0.0 PT INR APTT Sodium 140 Potassium 3.9 Chloride 109 H Carbon Dioxide 24 Anion Gap 11 L BUN 6 L Creatinine 0.72 Estim Creat Clear Calc 68.1 Estimated GFR > 60 POC Glucose 167 H Random Glucose 103 Calcium 8.2 L Magnesium Total Bilirubin Direct Bilirubin AST ALT Alkaline Phosphatase Troponin I High Sens Total Protein Albumin Lipase Urine Color Urine Appearance Urine pH Ur Specific [place] Urine Protein Urine Glucose (UA) Urine Ketones Urine Blood Urine Nitrite Ur Leukocyte Esterase COVID-19 ([facility]) COVID-19 [employer] 12/14/21 12/14/21 12/14/21 07:36 11:40 15:57 WBC RBC Hgb Hct MCV MCH MCHC RDW Plt Count MPV Immature Gran % (Auto) Neut % (Auto) Lymph % (Auto) [place] % (Auto) Eos % (Auto) Baso % (Auto) Lymph # (Auto) [place] # (Auto) Eos # (Auto) Baso # (Auto) Abs Immat Gran (auto) Absolute Neuts (auto) Absolute Nucleated RBC Nucleated RBC % (auto) PT INR APTT Sodium Potassium Chloride Carbon Dioxide Anion Gap BUN Creatinine Estim Creat Clear Calc Estimated GFR POC Glucose 121 H 117 H 171 H Random Glucose Calcium Magnesium Total Bilirubin Direct Bilirubin AST ALT Alkaline Phosphatase Troponin I High Sens Total Protein Albumin Lipase Urine Color Urine Appearance Urine pH Ur Specific [place] Urine Protein Urine Glucose (UA) Urine Ketones Urine Blood Urine Nitrite Ur Leukocyte Esterase COVID-19 ([facility]) COVID-Prizzm 12/14/21 12/15/21 12/15/21 19:54 07:03 10:29 WBC RBC Hgb Hct MCV MCH MCHC RDW Plt Count MPV Immature Gran % (Auto) Neut % (Auto) Lymph % (Auto) [place] % (Auto) Eos % (Auto) Baso % (Auto) Lymph # (Auto) [place] # (Auto) Eos # (Auto) Baso # (Auto) Abs Immat Gran (auto) Absolute Neuts (auto) Absolute Nucleated RBC Nucleated RBC % (auto) PT INR APTT Sodium Potassium Chloride Carbon Dioxide Anion Gap BUN Creatinine Estim Creat Clear Calc Estimated GFR POC Glucose 112 141 H 153 H Random Glucose Calcium Magnesium Total Bilirubin Direct Bilirubin AST ALT Alkaline Phosphatase Troponin I High Sens Total Protein Albumin Lipase Urine Color Urine Appearance Urine pH Ur Specific [place] Urine Protein Urine Glucose (UA) Urine Ketones Urine Blood Urine Nitrite Ur Leukocyte Esterase COVID-19 ([facility]) COVID-19 [facility] 12/15/21 12/15/21 12/16/21 15:53 19:58 07:42 WBC RBC Hgb Hct MCV MCH MCHC RDW Plt Count MPV Immature Gran % (Auto) Neut % (Auto) Lymph % (Auto) [place] % (Auto) Eos % (Auto) Baso % (Auto) Lymph # (Auto) [place] # (Auto) Eos # (Auto) Baso # (Auto) Abs Immat Gran (auto) Absolute Neuts (auto) Absolute Nucleated RBC Nucleated RBC % (auto) PT INR APTT Sodium Potassium Chloride Carbon Dioxide Anion Gap BUN Creatinine Estim Creat Clear Calc Estimated GFR POC Glucose 140 H 133 H 150 H Random Glucose Calcium Magnesium Total Bilirubin Direct Bilirubin AST ALT Alkaline Phosphatase Troponin I High Sens Total Protein Albumin Lipase Urine Color Urine Appearance Urine pH Ur Specific [place] Urine Protein Urine Glucose (UA) Urine Ketones Urine Blood Urine Nitrite Ur Leukocyte Esterase COVID-19 ([facility]) [facility] 12/16/21 12/16/21 10:51 12:27 WBC RBC Hgb Hct MCV MCH MCHC RDW Plt Count MPV Immature Gran % (Auto) Neut % (Auto) Lymph % (Auto) [place] % (Auto) Eos % (Auto) Baso % (Auto) Lymph # (Auto) [place] # (Auto) Eos # (Auto) Baso # (Auto) Abs Immat Gran (auto) Absolute Neuts (auto) Absolute Nucleated RBC Nucleated RBC % (auto) PT INR APTT Sodium Potassium Chloride Carbon Dioxide Anion Gap BUN Creatinine Estim Creat Clear Calc Estimated GFR POC Glucose 148 H 147 H Random Glucose Calcium Magnesium Total Bilirubin Direct Bilirubin AST ALT Alkaline Phosphatase Troponin I High Sens Total Protein Albumin Lipase Urine Color Urine Appearance Urine pH Ur Specific [place] Urine Protein Urine Glucose (UA) Urine Ketones Urine Blood Urine Nitrite Ur Leukocyte Esterase COVID-19 ([facility]) COVID-19 [facility] Airway Mallampati Class: III TM Dist: >3cm Neck ROM: Full Loose/Missing/Broken Teeth: No Heart: RRR Lungs: CTA Assessment and Plan Final Anesthetic Review History of Problems with Anesthesia: No NPO: Yes ASA Class: II Final Preanesthetic Review: Meds/Allgs Chart Reviewed, Consent Obtained/Reviewed and Anes Risks/Benef Reviewed Patient Risk: Low Procedure Risk: Intermediate Anesthetic Plan Anesthetic Plan: MAC: Disposition: Standard PACU
--- NOTE | 2021-12-16 16:11 | P.PNIM_ITS ---
Subjective Subjective Date of Service: 12/16/21 Review of Systems Follow up ileus Better today completed prep for colo Physical Exam Vital Signs: Vital Signs: Last Vital Signs Temp 97.6 F 12/16/21 15:45 Pulse 75 12/16/21 15:45 Resp 17 12/16/21 15:45 BP 134/81 12/16/21 15:45 Pulse Ox 97 12/16/21 15:45 BMI result Body Mass Index 27.0 Appearing in no acute distress lung sounds are clear to auscultation heart regular rate rhythm, clear S1, S2 positive bowel sounds, abdomen is soft, nontender neuro patient is alert x3, no focal deficits Objective Data Active Medications Acetaminophen (Acetaminophen 325 Mg Tablet) 650 mg PO Q6H PRN PRN Reason: Pain, Mild (Pain Scale 1-3) Alprazolam (Alprazolam 0.5 Mg Tablet) 1 mg PO QID PRN PRN Reason: Anxiety Last Admin: 12/15/21 08:56 Dose: 1 mg Documented by: HELGA Lipase/Protease/Amylase (Lipase/Prot/Amylase 24/76/120k 1 Cap Capsule.Dr) 1 cap PO QID [facility] Last Admin: 12/16/21 12:14 Dose: Not Given Documented by: MACHO Non-Admin Reason: npo and will be going to procedure soon Brimonidine Tartrate (Brimonidine Tartrate 0.2% Oph 5 Ml Bottle) 1 drop EYE- RIGHT BID [facility] Last Admin: 12/16/21 09:10 Dose: 1 drop Documented by: MACHO Dextrose (Dextrose 50 % 25 Gm/50 Ml Syringe) 25 gm IVPUSH Q15M PRN; Protocol PRN Reason: per Hypoglycemia Standing Ord. Enoxaparin Sodium (Enoxaparin Sodium 40 Mg/0.4 Ml Syringe) 40 mg SUBCUT Q24H [facility] Last Admin: 12/16/21 09:09 Dose: 40 mg Documented by: MACHO Glucose (Glucose Gel 15 Gm Gel..Gram.) 15 gm PO Q15M PRN; Protocol PRN Reason: per Hypoglycemia Standing Ord. Hydromorphone HCl (Hydromorphone Hcl 0.5 Mg/0.5 Ml Syringe) 0.5 mg IVPUSH Q4H PRN; Protocol PRN Reason: Pain, Severe (Pain Scale 7-10) Last Admin: 12/13/21 09:35 Dose: 0.5 mg Documented by: HELGA Insulin Human Lispro (Insulin Lispro 100 Unit/Ml 3 Ml Vial) 0 unit SUBCUT QIDACHS [facility]; Protocol Last Admin: 12/16/21 11:01 Dose: Not Given Documented by: MACHO Non-Admin Reason: No Insulin Coverage Magnesium Oxide (Magnesium Oxide 400 Mg Tablet) 400 mg PO BID [facility] Last Admin: 12/16/21 09:09 Dose: 400 mg Documented by: MACHO Methylphenidate HCl (Methylphenidate Hcl 10 Mg Tablet) 10 mg PO DAILY@0800 [facility] Last Admin: 12/16/21 08:54 Dose: Not Given Documented by: MACHO Non-Admin Reason: Patient Refused Morphine Sulfate (Morphine Sulfate 4 Mg/Ml Cartridge) 4 mg IVPUSH Q4H PRN; Protocol PRN Reason: Pain, Severe (Pain Scale 7-10) Patient Own Med ( Linaclotide [Linzess ] 290 Mcg Capsule)) 1 each PO DAILY [facility] Last Admin: 12/16/21 09:09 Dose: 1 each Documented by: MACHO Non-Formulary Medication (Prucalopride [Motegrity]) 1 tab PO DAILY [facility] Omeprazole (Omeprazole 40 Mg Capsule.Dr) 40 mg PO DAILY@0630 [facility] Last Admin: 12/16/21 05:48 Dose: Not Given Documented by: SUGEY Non-Admin Reason: NPO Ondansetron HCl (Ondansetron Hcl 4 Mg/2 Ml Vial) 4 mg IVPUSH Q6H PRN PRN Reason: Nausea and Vomiting Prazosin HCl (Prazosin Hcl 1 Mg Capsule) 1 mg PO BEDTIME [facility]; Protocol Last Admin: 12/15/21 21:14 Dose: 1 mg Documented by: MAKSIM Prazosin HCl (Prazosin Hcl 5 Mg Capsule) 5 mg PO BEDTIME [facility]; Protocol Last Admin: 12/15/21 21:11 Dose: 5 mg Documented by: MAKSIM Quetiapine Fumarate (Quetiapine Fumarate 200 Mg Tablet) 200 mg PO BID [facility] Last Admin: 12/16/21 09:18 Dose: Not Given Documented by: MACHO Non-Admin Reason: Patient Refused Sodium Chloride (0.9 % Sodium Chloride Flush 3 Ml Syringe) 3 ml IVFLUSH QSHIFT [facility] Last Admin: 12/16/21 09:09 Dose: 3 ml Documented by: MACHO Timolol Maleate (Timolol Maleate 0.5 % Oph [place] 5 Ml Drbtl) 1 drop EYE-RIGHT BID [facility] Last Admin: 12/16/21 09:10 Dose: 1 drop Documented by: MACHO Venlafaxine HCl (Venlafaxine Hcl Er 150 Mg Cap.Er.24h) 150 mg PO DAILY [facility] Last Admin: 12/16/21 09:09 Dose: 150 mg Documented by: MACHO Venlafaxine HCl (Venlafaxine Hcl Er 75 Mg Cap.Er.24h) 75 mg PO DAILY [facility] Last Admin: 12/16/21 09:09 Dose: 75 mg Documented by: MACHO Zolpidem Tartrate (Zolpidem Tartrate 5 Mg Tablet) 5 mg PO BEDTIME [facility] Last Admin: 12/15/21 21:10 Dose: 5 mg Documented by: MAKSIM Labs CBC & Chem 7: 12/14/21 05:07 12/14/21 05:07 Labs: Laboratory Results - last 24 hr 12/15/21 12/16/21 12/16/21 19:58 07:42 10:51 POC Glucose 133 H 150 H 148 H 12/16/21 12:27 POC Glucose 147 H Assessment and Plan (1) Ileus: Status: Acute Plan 66-year-old female with past medical history of idiopathic constipation, IBS who presents to the hospital with abdominal pain found to have ileus/early obstruction ileus with hx of chronic constipation . Pain is much better CT scan showing no evidence of bowel obstruction had colo showing gastritis, internal hemorrhoids and redundant colon Plan is to increase fiber in diet, oral intake, avoid straining with stools, may use Epson salts or Sitz baths along with Anusol suppositories or cream Scheduled MiraLax twice daily Continue home medication if able to be from home as linzess and motegrity are nonformulary DM hold metformin follow POCs SSI Mood Continue Xanax, Seroquel, Effexor gerd continue omeprazole DVT prophylaxis with Lovenox Attending Dr. Nelson Full code Patient requires continued hospitalization for inpatient colonoscopy secondary to abdominal pain Quality Stroke Does the patient have a stroke diagnosis?: No VTE Prior VTE?: No VTE Risk Level:: Medical - low VTE Device Contraindication: Treatment Not Indicated VTE Drug Contraindication: Treatment Not Indicated
--- NOTE | 2021-12-16 16:19 | PM.DS ---
DS: Providers Provider Date of Service: 12/16/21 Date of admission: 12/13/21 00:31 Primary care physician: Ham Hay MD Consults: 12/13/21 11:48 Consult to General Surgery Routine Consulting Provider: Vasile Pappas Reason for consultation: ileus Has provider been notified: No 12/15/21 08:02 Consult to Gastroenterology Routine Consulting Provider: Dragan Tejeda Reason for consultation: ileus Has provider been notified: No Attending physician on discharge: Den Nelson Discharging clinician: Tiffany Wong DS: Diagnosis Discharge Diagnosis (1) Ileus: Status: Acute DS: Summary Hospital Course Hospital Course: HP as per admitting provider 66-year-old female with past medical history of IBS, history of pancreatitis, diverticulitis, and GERD who presents to the hospital with complaints of abdominal pain.? Patient reports that she started having abdominal pain for the past 1 week, worse on the left upper and lower quadrant, seeing her GI doctor today, who ordered an abdominal x-ray that showed ileus versus early small bowel obstruction and therefore she was sent to the hospital.? Patient reports the pain is 10/10, radiating to the rest of the abdomen, last bowel movement was 5/5, she has not been passing gas for the past 24 hours.? She has increased bowel sounds and gurgling.? She has had nausea as well as vomiting.? She has had low appetite.?She denies any chest pain, no headache or change in vision, no urinary symptoms and no lower extremity edema.? No numbness tingling lower weakness in extremities.?On arrival to the ED patient is hemodynamically stable Labs Reviewed and are generally unremarkable Patient underwent CT abdomen which showed fluid filled colon suggesting diarrhea, no evidence of bowel obstruction Despite having multiple rounds of IV pain control patient continued to have intractable abdominal pain, nausea and therefore will be admitted for further monitoring ileus with hx of chronic constipation . Pain is much better CT scan showing no evidence of bowel obstruction had colo showing gastritis, internal hemorrhoids and redundant colon Plan is to increase fiber in diet, oral intake, avoid straining with stools, may use Epson salts or Sitz baths along with Anusol suppositories or cream Scheduled MiraLax twice daily Continue home medication if able to be from home as linzess and motegrity are nonformulary DM hold metformin follow POCs SSI Mood Continue Xanax, Seroquel, Effexor gerd continue omeprazole Time Spent with Patient Time attestation: Total time spent providing and/or coordinating discharge services: Discharge coordination time: Greater than 30 minutes Quality: Safe Use of Opioids Does Pt have an Active Cancer Diagnosis on the Problem List?: No Quality: Stroke Does the patient have a stroke diagnosis?: No Physical Exam Vital Signs: Vital Signs: Last Vital Signs Temp 97.6 F 12/16/21 15:45 Pulse 75 12/16/21 15:45 Resp 17 12/16/21 15:45 BP 134/81 12/16/21 15:45 Pulse Ox 97 12/16/21 15:45 BMI result Body Mass Index 27.0 Appearing in no acute distress head is normocephalic atraumatic eyes pupils are PERRLA sclera is anicteric mouth throat mucous membranes are intact and moist neck is supple no lymphadenopathy, no JVD noted lung sounds are clear to auscultation heart regular rate rhythm, clear S1, S2 positive bowel sounds, abdomen is soft, nontender neuro patient is alert x3, no focal deficits DS: Data Data Completed and Pending Pending studies at discharge: Pending at discharge 12/16/21 15:04 Surgical [PTH] Routine Labs on day of discharge: Laboratory Results - last 24 hr 12/15/21 12/16/21 12/16/21 19:58 07:42 10:51 POC Glucose 133 H 150 H 148 H 12/16/21 12:27 POC Glucose 147 H Discharge Plan Discharge Anticipated Discharge Date/Time: 12/16/21 18:19 Patient Disposition: Home, Self-Care Discharge Diagnosis: Ileus Constipation Referrals: Name,MD Ham [Primary Care Provider] - 1 Week Discharge Medications: Continued omeprazole 40 mg capsule,delayed release(DR/EC) 40 mg PO DAILY Qty: 90 0RF alprazolam 1 mg tablet 1 tab PO QID 0RF sennosides [senna] 8.6 mg tablet 2 tab PO BEDTIME PRN (Reason: constipation) 0RF methylphenidate HCl 10 mg tablet 1 tab PO DAILY 0RF venlafaxine 150 mg capsule,extended release 24hr 1 cap PO QAM 0RF (DME) FreeStyle Lite Strips Strip Not Applicable DAILY 0RF metformin 1,000 mg tablet 1 tab PO BID 0RF zolpidem 10 mg tablet 1 tab PO BEDTIME 0RF prazosin 2 mg capsule 3 cap PO BEDTIME 0RF metoclopramide HCl 10 mg tablet 1 tab PO QIDACHS 0RF quetiapine 400 mg tablet extended release 24 hr 1 tab PO BEDTIME 0RF brimonidine-timolol [Combigan] 0.2-0.5 % drops 1 drp ophthalmic-Right BID 0RF Creon 24,000-76,000 -120,000 unit capsule,delayed release(DR/EC) 1 cap PO QID 0RF Linzess 290 mcg capsule 1 cap PO DAILY 0RF Motegrity 2 mg tablet 1 tab PO DAILY 0RF venlafaxine 75 mg capsule,extended release 24hr 75 mg PO DAILY 0RF methylphenidate HCl 20 mg tablet extended release 2 tab PO DAILY 0RF acetaminophen 500 mg tablet 1,000 mg PO Q6H PRN (Reason: pain) 0RF magnesium oxide 500 mg capsule 500 mg PO BID Qty: 60 6RF Discharge Orders: Discharge Order (Routine); Ordered 12/16/21 Ordered By: Tiffany Wong Diet: advance to usual diet Activity on Discharge: As tolerated Stand Alone Forms: Patient Portal Discharge page Care Plan Goals: Resolution of symptoms Health Concerns: Ileus Constipation Plan of Treatment: Follow up with primary care provider as needed High fiber diet leaflet, good fluid intake at least 4-5 glasses a day avoid straining at stool, epsom salts and sitz bath, anusol supps or cream scheduled miralax BID, can also use motegrity 1 mg daily Assessment: See discharge summary
[2021-12-16] MEDS: ondansetron HCL 4 MG/2 ML VIAL IVPUSH (16:39)
[2021-12-16 17:01] LABS: Glucose, Whole Blood 122 mg/dL (60-115)
--- NOTE | 2021-12-16 18:54 | PC.NURSE ---
patient own medication Linzess returned to patient upon discharge
== END 2021-12-16 19:43 | disposition home or self-care (01) ==
LOC: HO.ED 22:45 → HO.EDOVER 12-13 00:43 → HO.S3 12-13 07:51
PROVIDERS: Internal Medicine; Internal Medicine Gastroenterology; Nurse Practitioner Family; Physician Assistant Medical; Admitting Provider Internal Medicine; Emergency Provider Emergency Medicine; PCP Internal Medicine Geriatric Medicine; Visit Provider Nurse Practitioner Acute Care
PROC: (CPT 45378; principal; 2021-12-16 15:10)
DX: R10.12 Left upper quadrant pain (principal); R10.32 Left lower quadrant pain; R14.0 Abdominal distension (gaseous); K59.04 Chronic idiopathic constipation; K56.7 Ileus, unspecified; D64.9 Anemia, unspecified; K58.1 Irritable bowel syndrome with constipation; K57.92 Diverticulitis of intestine, part unspecified, without perforation or abscess without bleeding; K21.9 Gastro-esophageal reflux disease without esophagitis; K29.70 Gastritis, unspecified, without bleeding; K64.8 Other hemorrhoids; K63.89 Other specified diseases of intestine; D12.6 Benign neoplasm of colon, unspecified; E66.9 Obesity, unspecified; I45.81 Long QT syndrome; Z87.19 Personal history of other diseases of the digestive system; Z20.822 Contact with and (suspected) exposure to COVID-19; Z90.49 Acquired absence of other specified parts of digestive tract; Z79.84 Long term (current) use of oral hypoglycemic drugs; Z79.899 Other long term (current) drug therapy
CPT/HCPCS: 45378; 43239; 36415; 74018; 74176; 80048; 80053; 80076; 81003; 82248; 82947; 83690; 83735; 84484; 85025; 85027; 85610; 85730; 87635; 88305; 88342; 93005; 96361; 96374; 96375; 96376; 99218; 99285; J1170; J1650; J2270; J2405; J3475

== ENCOUNTER → 2022-01-01 09:43 | Outpatient (BNVA) | payer OTHER, SELFPAY | PROVIDERS: PCP Internal Medicine Geriatric Medicine; Visit Provider Nurse Practitioner | DX: K56.7 Ileus, unspecified (principal); K21.9 Gastro-esophageal reflux disease without esophagitis; K59.04 Chronic idiopathic constipation; K59.9 Functional intestinal disorder, unspecified | CPT/HCPCS: 99212 ==

== ENCOUNTER 2022-02-25 09:46 | Outpatient (REF) | payer OTHER, SELFPAY ==
--- NOTE | ~2022-02-25 | XR_ITS ---
EXAMINATION: XR ABDOMEN WITH DECUBITUS VIEWS CLINICAL INDICATION: Left upper quadrant pain COMPARISON: 12/14/2021. TECHNIQUE: Supine and upright views of the abdomen. FINDINGS: There are postoperative changes in the right upper quadrant. No evidence for free air as seen on this evaluation. Mild gaseous distention of colon observed, with air-fluid levels in colon and likely in small bowel. Findings suggest a diarrheal illness versus ileus. XR/XR abdomen w decubitus IMPRESSION: Air-fluid levels of bowel with mild gaseous distention of colon noted. Findings suggest a diarrheal illness versus ileus. No definite evidence for free air.
== END 2022-02-25 09:47 | disposition home or self-care (01) ==
LOC: HO.XRAY 09:46
PROVIDERS: PCP Internal Medicine Geriatric Medicine; Visit Provider Nurse Practitioner
DX: R10.12 Left upper quadrant pain (principal); K56.7 Ileus, unspecified; K59.04 Chronic idiopathic constipation; K21.9 Gastro-esophageal reflux disease without esophagitis
CPT/HCPCS: 74021; 99212

== ENCOUNTER → 2022-03-04 08:36 | Outpatient (BNVA) | payer OTHER, SELFPAY | PROVIDERS: PCP Internal Medicine Geriatric Medicine; Visit Provider Nurse Practitioner | DX: K59.04 Chronic idiopathic constipation (principal); K59.9 Functional intestinal disorder, unspecified; K21.9 Gastro-esophageal reflux disease without esophagitis; K56.7 Ileus, unspecified; R10.12 Left upper quadrant pain; Z79.899 Other long term (current) drug therapy | CPT/HCPCS: 99212 ==

== ENCOUNTER 2022-04-14 13:47 | Outpatient (REF) | payer OTHER, SELFPAY | END 2022-04-14 13:48 | disposition home or self-care (01) | LOC: HO.MAMMO 13:47 | PROVIDERS: PCP Internal Medicine Geriatric Medicine; Visit Provider Internal Medicine Geriatric Medicine | DX: Z13.89 Encounter for screening for other disorder (principal) ==

== ENCOUNTER 2022-04-14 14:09 | Outpatient (REF) | payer OTHER, SELFPAY ==
--- NOTE | ~2022-04-14 | MM_ITS ---
EXAMINATION: MM DIAGNOSTIC DIGITAL BREAST TOMOSYNTHESIS, BILATERAL CLINICAL INFORMATION: Due for yearly. Also follow-up probable benign calcifications anterior 12:00 right breast. The lifetime risk of breast cancer based on the Tyrer-Cuzick Model is 3%. COMPARISON: Mammography: 10/23/2021, 04/11/2021, 04/03/2021 (BI-RADS 0), 04/03/2020 TECHNIQUE: Digital breast tomosynthesis is performed in both the craniocaudal and mediolateral oblique views along with computer-aided detection (CAD). Synthesized 2D images are generated from the tomosynthesis. Additional magnification right CC and magnification right ML views are obtained. FINDINGS: There are scattered areas of fibroglandular density (ACR BI-RADS breast composition Category b). Parenchymal pattern is similar to prior studies and there is no developing density or interval mass or architectural abnormality. No interval abnormal calcifications. The axilla and skin contours are unremarkable. The right breast calcifications for follow-up are decreased/coalesced from initial diagnostic exam. There are no increasing calcifications or pleomorphic changes. Calcifications will be reassessed again at time of next bilateral annual mammography, due in 12 months. Results are discussed with the patient at time of visit. MM/MM tomosynthesis diagnostic BI IMPRESSION: -No mammographic evidence of malignancy. -Benign appearing right breast calcifications. No significant changes. ASSESSMENT: BI-RADS 3: Probably Benign RECOMMENDATION: Diagnostic mammography at time of next annual exam, due in 12 months. This patient's information was entered into a reminder system with a target due date for their next mammogram.
== END 2022-04-14 14:10 | disposition home or self-care (01) ==
LOC: HO.MAMMO 14:09
PROVIDERS: PCP Internal Medicine Geriatric Medicine; Visit Provider Internal Medicine Geriatric Medicine
DX: R92.1 Mammographic calcification found on diagnostic imaging of breast (principal)
CPT/HCPCS: 77062; 77066

== ENCOUNTER → 2022-05-06 09:21 | Outpatient (BNVA) | payer OTHER, SELFPAY | PROVIDERS: PCP Internal Medicine Geriatric Medicine; Visit Provider Nurse Practitioner | DX: K59.9 Functional intestinal disorder, unspecified (principal); K21.9 Gastro-esophageal reflux disease without esophagitis; K59.04 Chronic idiopathic constipation | CPT/HCPCS: 99212 ==

== ENCOUNTER → 2022-11-10 13:16 | Outpatient (BNVA) | payer OTHER, SELFPAY | PROVIDERS: PCP Internal Medicine Geriatric Medicine; Visit Provider Nurse Practitioner | DX: K59.04 Chronic idiopathic constipation (principal); K21.9 Gastro-esophageal reflux disease without esophagitis; R11.2 Nausea with vomiting, unspecified | CPT/HCPCS: 99212 ==

== ENCOUNTER 2023-01-21 10:34 | Outpatient (REF) | payer MEDICARE, SELFPAY ==
--- NOTE | ~2023-01-21 | XR_ITS ---
EXAMINATION: XR ABDOMEN WITH DECUBITUS VIEWS CLINICAL INDICATION: Chronic idiopathic constipation. Please evaluate stool burden. COMPARISON: February 25, 2022. TECHNIQUE: Upright and supine frontal views of the abdomen. FINDINGS: Minimal stool burden is appreciated. There are multiple loops of mildly prominent large and small bowel, many containing air-fluid levels, similar compared with February 25, 2022. Air is seen within the rectal vault. The liver may be mildly enlarged, measuring approximately 21 cm in sagittal dimension. Spleen is not well evaluated. No soft tissue mass is appreciated. The patient is status post cholecystectomy. XR/XR abdomen w decubitus IMPRESSION: Unremarkable stool burden. Suspect mild ileus and/or hypersecretion, similar compared with February 25, 2022. Suspect mild hepatomegaly.
[2023-01-21 15:44] LABS: Lipase 31 U/L (8-78)
[2023-01-21 15:55] LABS: Amylase 67 U/L (28-100)
[2023-01-21 16:12] LABS: TSH reflex Free T4 0.58 uIU/mL (0.32-4.0)
[2023-01-21 16:22] LABS: Estimated Average Glucose 134 mg/dL; Hemoglobin A1C 133.2612 umol/L; Hemoglobin A1c % 6.3 %
== END 2023-01-21 10:35 | disposition home or self-care (01) ==
LOC: CF 10:34
PROVIDERS: PCP Internal Medicine Geriatric Medicine; Visit Provider Nurse Practitioner
DX: K59.04 Chronic idiopathic constipation (principal); K21.9 Gastro-esophageal reflux disease without esophagitis; R11.2 Nausea with vomiting, unspecified; Z83.3 Family history of diabetes mellitus; R73.9 Hyperglycemia, unspecified
CPT/HCPCS: 36415; 74021; 82150; 83036; 83690; 84443; 99212

== ENCOUNTER → 2023-02-05 14:39 | Outpatient (BNVA) | payer MEDICARE, SELFPAY | PROVIDERS: PCP Internal Medicine Geriatric Medicine; Visit Provider Nurse Practitioner | DX: K59.04 Chronic idiopathic constipation (principal); K21.9 Gastro-esophageal reflux disease without esophagitis; K59.9 Functional intestinal disorder, unspecified; K56.7 Ileus, unspecified; R11.2 Nausea with vomiting, unspecified | CPT/HCPCS: 99212 ==

== ENCOUNTER 2023-03-25 10:20 | Outpatient (AMB) | payer MEDICARE, SELFPAY ==
[2023-03-25 10:22] VITALS: BP 91/57; PULSE 90; BMI 25.9
--- NOTE | 2023-03-25 10:22 | A.OFFVIS_ITS ---
Intake Vital Signs 03/25/23 10:22 Height 5 ft 1 in Weight 137 lb 2.04 oz BMI 25.9 BP 91/57 L Blood Pressure Location Rt brachial Position Sitting Pulse 90 Intake Visit Reasons: 3 week fu Intake Note: Makenna presents in the office today in follow up of abdominal pain. CC: Patient c/o vertigo for about two weeks. She continues to have constipation, abdominal bloating, pain, nausea, increased gas, and vomiting. Denies other GI symptoms. 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 She does not seem to have an undo stool burden but she seems to have a great deal of difficulty mobilizing gas.? I can not help but wonder if part of her small intestine is not functioning properly after her multiple occurrences of ileus. Her medications are as follows:? Linzess 290 micro g, BEntyl, famotidine, creon, reglan 10mg, omeprazole, Motegrity, simethicone, senna, Miralax, bisacodyl, and milk of magnesia. She is actually considering partial colectomy for her problems. IF the former does not work will refer to general surgery.? (Apparently this was discussed during her 12/2021 hospitalization during a consultation with Dr Pappas as follows: ...If the patient is truly compliant with her bowel regimen failing, the opinion of a colorectal surgeon regarding partial or total colectomy for chronic constipation would be in order.... This was when she was hospitalized for an ileus.) ROV 3 weeks. (2) GERD (gastroesophageal reflux disease): ?Comment: This resolved after we got her bowels moving and she does not need any acid maurer ppression therapy aeb ?Code(s): K21.9 - Gastro-esophageal reflux disease without esophagitis (3) Nausea and vomiting: ?Code(s): R11.2 - Nausea with vomiting, unspecified (4) Small bowel motility disorder: ?Code(s): K59.9 - Functional intestinal disorder, unspecified (5) Ileus: ?Code(s): K56.7 - Ileus, unspecified ? ? ? Medications: Changed From metoclopramide HCl C 10 mg? PO QIDACHS 120 tabs 6RF K59.9 - Functional intestinal disord er, unspecified ? To metoclopramide HCl ?? Provider aware of possible inter actions with seroq uel and is monitor ing 10 mg? PO QIDACHS 120 tabs 6RF K59.9 - Functional intestinal disord er, unspecified ? Refilled metoclopramide HCl 10 mg? PO QIDACHS 120 tabs 6RF K59.9 - Functional intestinal disord er, unspecified ? TODAY'S VISIT She is not seeing any difference with the reglan 10mg qid. She continues to be bloated and nauseated with generalized abdominal pain. She is having hypotension, likely r/t not eating or drinking enough - discuss Gaitoraide. Her medications are as follows:? Linzess 290 micro g, BEntyl, famotidine, creon, reglan 10mg, omeprazole, Motegrity, simethicone, senna, Miralax, bisacodyl, and milk of magnesia. I have run out of ideas, so I will refer her back to Dr. Pappas (for considerat ion of colon surgery) and to one of the gastro MD's for second opinion. She is agreeable to this. (Apparently this was discussed during her 12/2021 hospitalization during a consultation with Dr Pappas as follows: ...If the patient is truly compliant with her bowel regimen failing, the opinion of a colorectal surgeon regarding partial or total colectomy for chronic constipation would be in order.... This was when she was hospitalized for an ileus.) ROV with MD spring appt. [facility] Medical History (Updated 03/25/23 @ 10:47 by Ethel Benjamin, ANP-C) Anemia Chronic idiopathic constipation Diverticulitis GERD (gastroesophageal reflux disease) History of pancreatitis Ileus Irritable bowel syndrome with constipation Tubular adenoma of colon Surgical History History of esophagogastroduodenoscopy (EGD) Hx of colonoscopy Family History Father No problems noted. Mother Diabetes Melanoma Family history of hypertension Family history of diabetes mellitus Social History Household Members: Family Housing: House Alcohol intake: never Patient Tobacco Use Status: Never used Tobacco Current occupational status: disabled Review of Systems Const Denies fatigue, Denies fever(s), Denies night sweats, Denies poor appetite and Denies weight loss Eyes Details: glasses Reports requires corrective lenses ENT Reports Normal hearing present, Denies dental pain, Denies dysphagia, Denies hearing loss, Denies mouth pain, Denies odynophagia, Denies throat swelling, Denies tongue swelling and Reports other (Dentition adequate) Card Reports no additional complaints Resp Reports no additional complaints GI Reports abdominal pain, Denies melena, Reports bloating, Denies hematochezia, Reports constipation, Denies GI cramping, Denies dysphagia, Denies excessive flatus, Denies early satiety, Reports heartburn, Denies diarrhea, Reports nausea, Denies odynophagia, Denies vomiting and Denies hematemesis Skin/Breast Denies pruritus, Denies lesions, Denies rash and Denies jaundice Neuro Reports Normal hearing present and Denies Abnormal speech present Endo Denies fatigue Aller/Immun Denies throat swelling and Denies tongue swelling Physical Exam Vital Signs: Last Vital Signs Pulse 90 03/25/23 10:22 BP 91/57 L 03/25/23 10:22 BMI result Body Mass Index 25.9 Const General: cooperative, no acute distress, well developed and well groomed Nutritional Appearance: average body habitus and well nourished Orientation/consciousness: oriented to person, oriented to place and oriented to time Limitations: No language barrier HEENT Head: Yes normocephalic and Yes atraumatic Eyes General: appearance normal, both eyes and all related structures Pupils: Equal, round and reactive pupils present Neck Neck: Yes normal visual inspection and Yes no lymphadenopathy Thyroid: Thyroid normal Resp Effort & Inspection: normal respiratory effort and able to speak in complete sentences Auscultation: clear to auscultation bilaterally Cardio Rate: regular rate Rhythm: regular rhythm Heart sounds: Normal, physiologic split S2 sound present Peripheral pulses: radial pulses present and posterior tibial pulses present GI Inspection: Yes distended and No Abdominal panniculus present Palpation (GI): Soft to palpation, Tenderness to palpation present (GI) periumbilically, no guarding, not rigid and No hepatosplenomegaly present Percussion: Yes normal to percussion Auscultation: normal bowel sounds Rectal Exam - Female: deferred Skin General skin exam: no rashes or lesions noted, turgor normal, skin not dry, no jaundice, No spider nevi and no striae Rashes: no rashes Nails: normal Neuro General: oriented to person, oriented to place and oriented to time Cranial nerves: Yes Equal, round and reactive pupils present and Yes Normal hearing present Speech: No Abnormal speech present Extrem General: Yes normal to inspection, No clubbing, No cyanosis and No edema Psych Appearance: grossly normal and well kempt Mental Status: mental status grossly normal Speech and movement: Normal speech and movement present Affect: normal affect Attitude: cooperative Thought process: Normal thought process present and not confabulating Thought content: Normal thought content present Insight: Limited insight present (Psych) Judgement: Limited judgement present (Psych) Assessment & Plan Assessment & Plan (1) Chronic idiopathic constipation: Code(s): K59.04 - Chronic idiopathic constipation Plan: She is not seeing any difference with the reglan 10mg qid. She continues to be bloated and nauseated with generalized abdominal pain. She is having hypotension, likely r/t not eating or drinking enough - discuss Gaitoraide. Her medications are as follows:? Linzess 290 micro g, BEntyl, famotidine, creon, reglan 10mg, omeprazole, Motegrity, simethicone, senna, Miralax, bisacodyl, and milk of magnesia. I have run out of ideas, so I will refer her back to Dr. Pappas (for consideration of colon surgery) and to one of the gastro MD's for second opinion. She is agreeable to this. (Apparently this was discussed during her 12/2021 hospitalization during a consultation with Dr Pappas as follows: ...If the patient is truly compliant with her bowel regimen failing, the opinion of a colorectal surgeon regarding partial or total colectomy for chronic constipation would be in order.... This was when she was hospitalized for an ileus.) ROV with MD spring appt. (2) GERD (gastroesophageal reflux disease): Comment: This resolved after we got her bowels moving and she does not need any acid suppression therapy aeb Code(s): K21.9 - Gastro-esophageal reflux disease without esophagitis (3) Small bowel motility disorder: Code(s): K59.9 - Functional intestinal disorder, unspecified (4) Diverticulitis: Code(s): K57.92 - Diverticulitis of intestine, part unspecified, without perforation or abscess without bleeding Orders: Referrals General Surgery Referral K57.92 - Diverticulitis of intestine, part unspecified, without perforation or abscess without bleeding Coding Level of Care Code Est Pt Level 3 (75653) Diagnoses Chronic idiopathic constipation K59.04 GERD (gastroesophageal reflux disease) K21.9 Small bowel motility disorder K59.9 Diverticulitis K57.92
== END 2023-03-25 10:50 | disposition home or self-care (01) ==
PROVIDERS: PCP Internal Medicine Geriatric Medicine; Visit Provider Nurse Practitioner
DX: K59.04 Chronic idiopathic constipation (principal); K21.9 Gastro-esophageal reflux disease without esophagitis; K59.9 Functional intestinal disorder, unspecified; K57.92 Diverticulitis of intestine, part unspecified, without perforation or abscess without bleeding
CPT/HCPCS: 99213

== ENCOUNTER → 2023-03-25 10:20 | Outpatient (BNVA) | payer MEDICARE, SELFPAY | PROVIDERS: PCP Internal Medicine Geriatric Medicine; Visit Provider Nurse Practitioner | DX: K59.04 Chronic idiopathic constipation (principal); K21.9 Gastro-esophageal reflux disease without esophagitis; K59.9 Functional intestinal disorder, unspecified; K57.92 Diverticulitis of intestine, part unspecified, without perforation or abscess without bleeding | CPT/HCPCS: 99212 ==

== ENCOUNTER 2023-04-06 14:42 | Emergency (ER) | payer MEDICARE, SELFPAY ==
[2023-04-06 14:49] VITALS: BP 100/67; PULSE 89; RESP 16; TEMP 36.1; O2SAT 97; BMI 24.6
--- NOTE | 2023-04-06 14:49 | ED_ITS ---
HPI - General Adult General Chief complaint: Weakness Stated complaint: Dehydrated/Dizzy-Anemic Time Seen by Provider: 04/06/23 22:31 Source: patient, RN notes reviewed and old records reviewed Mode of arrival: ambulatory Limitations: no limitations History of Present Illness HPI narrative: 67-year-old female with past medical history significant for chronic constipation, GERD who presents for evaluation of lightheadedness and weakness. Patient reports for the last 3 weeks to 1 month she reports decreased appetite. She feels that she is dehydrated because I just do not have any energy. She states that she has chronic upper abdominal pain in the center of her abdomen she reports that she feels nauseous but has not vomited patient reports her symptoms are worse if she turns her head to the side hour she bends over to pick something up she states that she has never been diagnosed with vertigo Related Data Home Medications Medication Instructions Recorded Confirmed acetaminophen 500 mg tablet 1,000 mg PO Q6H PRN pain 12/17/20 12/13/21 alprazolam 1 mg tablet 1 tab PO QID 12/12/21 12/13/21 blood sugar diagnostic (FreeStyle 12/13/21 12/13/21 Lite Strips) brimonidine 0.2 %-timolol 0.5 % 1 drp ophthalmic-Right BID 12/13/21 12/13/21 eye drops (Con) metformin 1,000 mg tablet 1 tab PO BID 12/13/21 12/13/21 methylphenidate HCl 10 mg tablet 1 tab PO DAILY 12/13/21 12/13/21 methylphenidate HCl 20 mg 2 tab PO DAILY 12/13/21 12/13/21 tablet,extended release prazosin 2 mg capsule 3 cap PO BEDTIME 12/13/21 12/13/21 venlafaxine 150 mg 1 cap PO QAM 12/13/21 12/13/21 capsule,extended release 24 hr zolpidem 10 mg tablet 1 tab PO BEDTIME 12/13/21 12/13/21 ondansetron HCl 4 mg tablet 4 mg PO TID PRN nausea/vomiting 01/01/22 hydrocortisone 2.5 % topical cream appl topical BID 03/04/22 magnesium chloride 70 mg 70 mg PO DAILY 03/04/22 (magnesium chloride) tablet,delayed release hydroxyzine pamoate 50 mg capsule 50 - 100 mg PO BEDTIME PRN insomnia 05/06/22 quetiapine 50 mg tablet 50 mg PO DAILY PRN 05/06/22 latanoprost 0.005 % eye drops 1 drp ophthalmic (eye) BID 11/10/22 quetiapine 400 mg tablet,extended 800 mg PO BEDTIME 11/10/22 release 24 hr venlafaxine 75 mg capsule,extended 75 mg PO DAILY PRN 11/10/22 release 24 hr clonidine HCl 0.1 mg tablet 0.1 mg PO QID 03/25/23 Previous Rx's Medication Instructions Recorded [id number] 1 cap PO QID #120 caps 05/06/22 24,000-76,000-120,000 unit capsule,delayed rel (Creon) prucalopride 2 mg tablet 2 mg PO DAILY #30 tabs 05/06/22 (Motegrity) sennosides 8.6 mg tablet (senna) 17.2 mg PO BEDTIME constipation 11/27/22 #60 tabs bisacodyl 5 mg tablet,delayed 10 mg PO BEDTIME 30 days #60 tabs 12/01/22 release (Dulcolax (bisacodyl)) famotidine 40 mg tablet (Pepcid) 40 mg PO BEDTIME #30 tabs 12/07/22 simethicone 180 mg capsule 180 mg PO QID #120 caps 12/28/22 polyethylene glycol 3350 17 17 g PO QID #714 grams 12/30/22 gram/dose oral powder omeprazole 40 mg capsule,delayed 40 mg PO DAILY #90 caps 01/25/23 release metoclopramide HCl 10 mg tablet 10 mg PO QIDACHS #120 tabs 02/05/23 linaclotide 290 mcg capsule 290 mcg PO DAILY #30 caps 03/04/23 (Linzess) dicyclomine 10 mg capsule 10 mg PO QID #120 caps 03/18/23 meclizine 25 mg tablet 25 mg PO TID PRN dizziness #20 tabs 04/07/23 Allergies Allergy/AdvReac Type Severity Reaction Status Date / Time No Known Allergies Allergy Verified 03/25/23 10:25 [No Known Allergies*] Review of Systems Constitutional: Constitutional: Denies chills, Denies fever(s), Denies headache(s) and Reports weakness Eyes: Eyes: Denies blurry vision ENT: Reports dizziness and Denies headache(s) Cardiovascular: Cardiovascular: Denies chest pain and Denies dyspnea Respiratory: Respiratory: Denies cough and Denies dyspnea Gastrointestinal: Gastrointestinal: Reports abdominal pain, Denies melena, Denies hematochezia, Reports constipation, Denies diarrhea, Reports nausea and Denies vomiting Musculoskeletal: Musculoskeletal: Denies back pain Integumentary/Breasts: Skin/Breast: Denies rash Neurologic: Reports dizziness, Denies headache(s) and Reports weakness PMFSH Past Medical History Medical History (Updated 04/07/23 @ 00:02 by Alexandre Chavez) Anemia Chronic idiopathic constipation Diverticulitis GERD (gastroesophageal reflux disease) History of pancreatitis Ileus Irritable bowel syndrome with constipation Tubular adenoma of colon Surgical History History of esophagogastroduodenoscopy (EGD) Hx of colonoscopy Family History Family History Father No problems noted. Mother Diabetes Melanoma Family history of hypertension Family history of diabetes mellitus Social History Social History Household Members: Family Housing: House Alcohol intake: never Patient Tobacco Use Status: Never used Tobacco Smoked in Last 30 Days: No Use of substances other than those prescribed or required for medical reasons: No Advance Directives: No Advance Directives Information Provided: No Current occupational status: disabled Physical Exam ED Vital Signs: Vital Signs - 24 hr 04/06/23 14:49 04/06/23 20:54 04/06/23 22:54 Temperature 97.0 F 98.1 F 98.1 F Pulse Rate 89 85 83 Respiratory Rate 16 16 12 Blood Pressure 100/67 119/77 119/70 Pulse Oximetry 97 98 96 Oxygen Delivery Method Room Air Room Air Room Air 04/06/23 23:12 04/06/23 23:13 04/06/23 23:12 Temperature Pulse Rate 85 100 97 Respiratory Rate Blood Pressure 116/75 104/71 101/67 Pulse Oximetry Oxygen Delivery Method BMI result Body Mass Index 24.6 Const General: healthy appearing, comfortable, no acute distress, alert and awake Nutritional Appearance: well nourished Orientation/consciousness: patient oriented x3 HENMT Head: Yes normocephalic and Yes atraumatic Ears: external ears normal, TM's normal bilaterally and EAC's normal Eyes Eyelids: Yes eyelids normal Conjunctivae: conjunctivae normal Sclerae: sclerae normal Corneas: corneas normal Pupils: Equal, round and reactive pupils present EOM: EOMs intact bilaterally Neck Neck: Yes full ROM Resp Effort & Inspection: normal respiratory effort, able to speak in complete sentences and not labored Cardio Rate: regular rate Rhythm: regular rhythm GI Inspection: No distended Palpation (GI): Soft to palpation, not firm, nontender, no guarding and not rigid Auscultation: normoactive bowel sounds Skin General skin exam: no rashes or lesions noted and elasticity normal Neuro General: patient oriented x3 Cranial nerves: Yes CN's II-XII intact bilaterally, Yes Equal, round and reactive pupils present and Yes Bilaterally intact EOM present Cognition (Neuro): normal cognition Extrem Other: Moving all extremities well without any obvious deformities Course Course Course Narrative: This is a rapid medical exam: Additional HPI, ROS, PE not included below will be deferred to primary provider. Patient is a 67-year-old female presenting to the emergency department with complaint of weakness, dizziness, decreased PO intake for the past month. Called PCP and was referred to the ED. Reports history of UC, complains of epigastric abdominal pain. Reports intermittent nausea, vomiting and diarrhea. Denies constipation, blood in stool, dark, tarry stool. Plan: labs, UA Reevaluation(s) Reevaluation #1: patient re-evaluated, she reports that her symptoms improved after meclizine. Again, back yet the diagnosis of peripheral vertigo, will discharge the patient and she will follow-up with her PCP Time: 00:01 Medications Administered Discontinued Medications Generic Name Dose Route Start Last Admin Trade Name Freq PRN Reason Stop Dose Admin Meclizine HCl 50 mg 04/06/23 22:50 04/06/23 23:15 Meclizine Hcl 25 Mg Tablet PO 04/06/23 22:51 50 mg ONCE ONE Administration Medical Decision Making Medical Decision Making MDM Narrative: 67-year-old female presents for evaluation of multiple complaints including chronic abdominal pain, nausea, decreased oral intake and she feels dehydrated and anemic. The patient's vital signs within normal limits, her labs are reassuring, she is not anemic. Her symptoms are consistent peripheral vertigo. we obtain orthostatic vital signs which were consistent with show orthostasis or dehydration. I explained this to the patient. Will attempt to treat her lightheadedness with meclizine as she describes peripheral vertigo symptoms. O therwise I do not feel the patient requires any further emergent workup may follow-up with her PCP and GI doctors for her outpatient workup. I did add on thyroid levels with TSH and reflex T4 Differential Diagnosis Differential Diagnoses: The differential diagnosis associated with the presentation includes dehydration Vertigo Orthostasis Anemia Failure to thrive Gastric dysmotility syndrome Lab Data MDM Lab Attestation statement: I reviewed the patient's lab results. no anemia, no leukocytosis, normal platelet count. Electrolytes within normal limits, renal function within normal limits. Glucose slightly elevated to 123 04/06/23 16:06 04/06/23 16:06 Labs: Lab Results 04/06/23 04/06/23 04/06/23 Range/Units 16:06 16:06 21:06 WBC 9.3 (4.8-10.8) X10*3/uL RBC 5.23 D (4.20-5.50) X10*6/uL Hgb 12.6 D (12.0-16.0) g/dl Hct 39.1 D (37.0-47.0) % MCV 74.8 L (80.0-98.0) fL MCH 24.1 L (27.0-33.0) pg MCHC 32.2 (31.0-35.0) g/dl RDW 14.7 (11.0-16.0) % Plt Count 318 D (160-400) X10*3/uL MPV 11.0 (9.4-12.3) fL Immature Gran % (Auto) 0.3 (0.0-0.4) % Neut % (Auto) 56.7 (45-73) % Lymph % (Auto) 33.8 (20-40) % Coke % (Auto) 6.8 (2-11) % Eos % (Auto) 1.8 (0-4) % Baso % (Auto) 0.6 (0-2) % Lymph # (Auto) 3.2 (1.2-4.9) X10*3/uL Coke # (Auto) 0.6 (0.1-1.2) X10*3/uL Eos # (Auto) 0.2 (0.0-0.4) X10*3/uL Baso # (Auto) 0.1 (0.0-0.2) X10*3/uL Abs Immat Gran (auto) 0.03 (0.00-0.03) X10*3/uL Absolute Neuts (auto) 5.3 (2.0-8.3) x10*3/uL Absolute Nucleated RBC 0.000 (0.0-0.012) X10*3/uL Nucleated RBC % (auto) 0.0 (0.0-0.2) /100WBC Sodium 138 (135-145) mmol/L Potassium 4.2 (3.3-5.1) mmol/L Chloride 103 (96-108) mmol/L Carbon Dioxide 26 (22-29) mmol/L Anion Gap 13 (12-20) BUN 12 (9-16) mg/dL Creatinine 1.01 (0.5-1.4) mg/dL Estim Creat Clear Calc 45.8 Estimated GFR 55 Random Glucose 123 H (60-115) mg/dL Calcium 10.2 D (8.4-10.2) mg/dL Total Bilirubin 0.3 (0.0-1.0) mg/dL AST 19 (5-31) U/L ALT 32 H (0-31) U/L Alkaline Phosphatase 119 H (39-117) U/L Total Protein 7.0 (6.5-8.0) g/dL Albumin 4.4 (3.5-5.0) g/dL Lipase 18 (8-78) U/L TSH 0.48 (0.32-4.0) uIU/mL Urine Color Yellow Urine Appearance Clear Urine pH 5.5 (5.0-9.0) Ur Specific Crook 1.010 (1.005-1.025) Urine Protein Negative (Neg-Trace) mg/dL Urine Glucose (UA) Negative (Negative) mg/dL Urine Ketones Negative (Negative) mg/dL Urine Blood Negative (Negative) Urine Nitrite Negative (Negative) Ur Leukocyte Esterase Small (1+) H (Negative) Urine RBC 0-2 (0-2) /HPF Urine WBC 6-10 H (0-5) /HPF Ur Squamous Epith Cells 3-5 (0-2) /HPF Urine Bacteria Trace (None Seen) Hyaline Casts 0-2 (0-2) /LPF Discharge Plan Discharge Clinical Impression: Benign paroxysmal positional vertigo Patient Disposition: Home, Self-Care Instructions: Vertigo (ED) Additional Instructions: your workup in the emergency department today was reassuring. Your not dehydrated your not anemic your symptoms are likely related to positional vertigo take the meclizine up to 3 times daily as needed for lightheadedness/dizziness follow-up with your primary doctor Prescriptions: New meclizine 25 mg tablet 25 mg PO TID PRN (Reason: dizziness) Qty: 20 0RF No Action sennosides [senna] 8.6 mg tablet 17.2 mg PO BEDTIME Qty: 60 6RF bisacodyl [Dulcolax (bisacodyl)] 5 mg tablet,delayed release (DR/EC) 10 mg PO BEDTIME 30 Days Qty: 60 6RF famotidine [Pepcid] 40 mg tablet 40 mg PO BEDTIME Qty: 30 6RF simethicone 180 mg capsule 180 mg PO QID Qty: 120 2RF polyethylene glycol 3350 17 gram/dose powder 17 g PO QID Qty: 714 0RF omeprazole 40 mg capsule,delayed release(DR/EC) 40 mg PO DAILY Qty: 90 3RF Linzess 290 mcg capsule 290 mcg PO DAILY Qty: 30 0RF dicyclomine 10 mg capsule 10 mg PO QID Qty: 120 0RF alprazolam 1 mg tablet 1 tab PO QID methylphenidate HCl 10 mg tablet 1 tab PO DAILY venlafaxine 150 mg capsule,extended release 24hr 1 cap PO QAM (DME) FreeStyle Lite Strips Strip Not Applicable DAILY metformin 1,000 mg tablet 1 tab PO BID zolpidem 10 mg tablet 1 tab PO BEDTIME prazosin 2 mg capsule 3 cap PO BEDTIME brimonidine-timolol [Combigan] 0.2-0.5 % drops 1 drp ophthalmic-Right BID methylphenidate HCl 20 mg tablet extended release 2 tab PO DAILY quetiapine 400 mg tablet extended release 24 hr 800 mg PO BEDTIME venlafaxine 75 mg capsule,extended release 24hr 75 mg PO DAILY PRN acetaminophen 500 mg tablet 1,000 mg PO Q6H PRN (Reason: pain) latanoprost 0.005 % drops 1 drp ophthalmic (eye) BID quetiapine 50 mg tablet 50 mg PO DAILY PRN hydroxyzine pamoate 50 mg capsule 50 - 100 mg PO BEDTIME PRN (Reason: insomnia) Creon 24,000-76,000 -120,000 unit capsule,delayed release(DR/EC) 1 cap PO QID Qty: 120 6RF Motegrity 2 mg tablet 2 mg PO DAILY Qty: 30 6RF ondansetron HCl 4 mg tablet 4 mg PO TID PRN (Reason: nausea/vomiting) magnesium chloride 70 mg tablet,delayed release (DR/EC) 70 mg PO DAILY hydrocortisone 2.5 % cream topical BID clonidine HCl 0.1 mg tablet 0.1 mg PO QID metoclopramide HCl 10 mg tablet 10 mg PO QIDACHS Qty: 120 6RF Rx Instructions: Provider aware of possible interactions with seroquel and is monitoring
[2023-04-06 16:11] LABS: MANUAL DIFF FLAG NO
[2023-04-06 16:12] LABS: Basophils Absolute Auto 0.1 X10*3/uL (0.0-0.2); Basophils Percent Auto 0.6 % (0-2); Eosinophils Absolute Auto 0.2 X10*3/uL (0.0-0.4); Eosinophils Percent Auto 1.8 % (0-4); Hematocrit 39.1 % (37.0-47.0); Hemoglobin 12.6 g/dl (12.0-16.0); Imm Gran Abs Auto 0.03 X10*3/uL (0.00-0.03); Imm Gran Pct Auto 0.3 % (0.0-0.4); Lymphocytes Absolute Auto 3.2 X10*3/uL (1.2-4.9); Lymphocytes Percent Auto 33.8 % (20-40); Mean Corpuscular HGB Conc 32.2 g/dl (31.0-35.0); Mean Corpuscular Hemoglobin 24.1 pg (27.0-33.0); Mean Corpuscular Volume 74.8 fL (80.0-98.0); Monocytes Absolute Auto 0.6 X10*3/uL (0.1-1.2); Monocytes Percent Auto 6.8 % (2-11); Neutrophils Absolute Auto 5.3 x10*3/uL (2.0-8.3); Neutrophils Percent Auto 56.7 % (45-73); Platelet Count 318 X10*3/uL (160-400); Red Blood Count 5.23 X10*6/uL (4.20-5.50); Red Cell Distribution Width 14.7 % (11.0-16.0); White Blood Count 9.3 X10*3/uL (4.8-10.8)
[2023-04-06 16:29] LABS: Alanine Aminotransferase 32 U/L (0-31); Albumin Level 4.4 g/dL (3.5-5.0); Alkaline Phosphatase 119 U/L (39-117); Anion Gap 13 (12-20); Aspartate Amino Transferase 19 U/L (5-31); Bilirubin Total 0.3 mg/dL (0.0-1.0); Blood Urea Nitrogen 12 mg/dL (9-16); Calcium 10.2 mg/dL (8.4-10.2); Carbon Dioxide 26 mmol/L (22-29); Chloride 103 mmol/L (96-108); Creatinine Clr Calc Pharmacy 45.8; Estimated Glomerular Filt Rate 55; Glucose Random 123 mg/dL (60-115); Lipase 18 U/L (8-78); Potassium 4.2 mmol/L (3.3-5.1); Sodium 138 mmol/L (135-145)
[2023-04-06 20:54] VITALS: BP 119/77; PULSE 85; RESP 16; TEMP 36.7; O2SAT 98
[2023-04-06 21:18] LABS: Appearance Urine Clear; Color Urine Yellow; Glucose Urine UA Negative (Negative); Leukocyte Esterase Urine Small (1+) (Negative); Nitrite Urine Negative (Negative); PH 5.5 (5.0-9.0); UMIC TRIGGER UACC YES; Urine Blood Negative (Negative); Urine Ketones Negative (Negative); Urine Protein Negative (Neg-Trace)
[2023-04-06 21:23] LABS: Bacteria Urine Trace (None Seen); Hyaline Casts Urine 0-2 /LPF (0-2); RBC Urine 0-2 /HPF (0-2); UACC Culture Trigger YES
[2023-04-06 22:54] VITALS: BP 119/70; PULSE 83; RESP 12; TEMP 36.7; O2SAT 96
[2023-04-06 23:12] VITALS: BP 101/67; BP 116/75; PULSE 85; PULSE 97
[2023-04-06 23:13] VITALS: BP 104/71; PULSE 100
[2023-04-06] MEDS: Meclizine HCl 25 MG TABLET 50 MG PO (23:15)
[2023-04-06 23:41] LABS: TSH reflex Free T4 0.48 uIU/mL (0.32-4.0)
== END 2023-04-07 00:19 | disposition home or self-care (01) ==
PROVIDERS: Physician Assistant; Registered Nurse Emergency; Emergency Provider Emergency Medicine; PCP Internal Medicine Geriatric Medicine
DX: H81.13 Benign paroxysmal vertigo, bilateral (principal); E86.0 Dehydration; R11.2 Nausea with vomiting, unspecified; D64.9 Anemia, unspecified; Z79.899 Other long term (current) drug therapy
CPT/HCPCS: 36415; 80053; 81001; 83690; 84443; 85025; 87086; 99283; 99284

== ENCOUNTER 2023-04-16 | Outpatient (REF) | payer OTHER, SELFPAY | END 2023-04-16 00:01 | disposition home or self-care (01) | LOC: CF | PROVIDERS: PCP Internal Medicine Geriatric Medicine; Visit Provider Surgery | DX: R10.9 Unspecified abdominal pain (principal); R11.2 Nausea with vomiting, unspecified | CPT/HCPCS: 99202 ==

== ENCOUNTER 2023-04-16 08:10 | Outpatient (AMB) | payer OTHER, SELFPAY ==
[2023-04-16 08:19] VITALS: BP 97/58; PULSE 117; BMI 24.9
--- NOTE | 2023-04-16 08:19 | A.OFFVIS_ITS ---
Intake Vital Signs 04/16/23 08:19 Height 5 ft 2 in Weight 136 lb BMI 24.9 BP 97/58 L Blood Pressure Location Rt brachial Position Sitting Pulse 117 H Intake Visit Reasons: Diverticulitis Intake Note: Patient referred by Ethel PAYAN for diverticulitis. C/o abd pain, constant nausea, vomiting, diarrhea, constipation. Patient had Abd X-ray in January. Implementation Manager Required: No Accompanied by: Self / Same As Patient Allergies No Known Allergies [No Known Allergies*] Allergy (Verified 04/16/23 08:23) HPI HPI Comments History of Present Illness Details Patient presents for evaluation for chronic diarrhea alternating with constipation for many years time. She has had extensive follow-up with the Gastroenterology physician, and has attempted all type of bowel regimens to help her deal with her problems with limited success. Patient has had extensive workup including multiple colonoscopies, x-rays and scans all which is essentially nondiagnostic. Patient states that she was told she has ulcerative colitis, although I can not find no documentation of this She is tolerating her diet. Her symptoms are mainly in the epigastrium with associated nausea. Chart was reviewed patient evaluated. Patient is also status post cholecystectomy many years ago. [facility] Medical History Anemia Ileus Tubular adenoma of colon History of pancreatitis Irritable bowel syndrome with constipation Diverticulitis GERD (gastroesophageal reflux disease) Chronic idiopathic constipation Surgical History History of esophagogastroduodenoscopy (EGD) Hx of colonoscopy Family History Father No problems noted. Mother Diabetes Melanoma Family history of hypertension Family history of diabetes mellitus Social History Household Members: Family Housing: House Alcohol intake: never Patient Tobacco Use Status: Never used Tobacco Current occupational status: disabled Physical Exam Vital Signs: Last Vital Signs Pulse 117 H 04/16/23 08:19 BP 97/58 L 04/16/23 08:19 BMI result Body Mass Index 24.9 Chest Other: Chest breath sounds bilaterally, HS 1 in 2 GI Other: Abdomen, scaphoid, soft, benign. Assessment & Plan Assessment & Plan (1) Abdominal cramping: Code(s): R10.9 - Unspecified abdominal pain (2) Nausea and vomiting: Code(s): R11.2 - Nausea with vomiting, unspecified Plan At present, there are no acute surgical issues. I am not precisely sure why she presented to the surgical clinic for. I do not recommend any kind of breath section of her colon for issues at this time. Patient is already scheduled to follow up with a 2nd opinion with another manufacturing storeperson. At present, will treat patient conservatively and she will follow-up p.r.n. Coding Level of Care Code New Pt Level 4 (55465) Diagnoses Abdominal cramping R10.9 Nausea and vomiting R11.2
== END 2023-04-16 09:01 | disposition home or self-care (01) ==
PROVIDERS: PCP Internal Medicine Geriatric Medicine; Referring Provider Nurse Practitioner; Visit Provider Surgery
DX: R10.9 Unspecified abdominal pain (principal); R11.2 Nausea with vomiting, unspecified
CPT/HCPCS: 99204

== ENCOUNTER 2023-05-28 10:35 | Outpatient (REF) | payer OTHER, SELFPAY ==
--- NOTE | ~2023-05-28 | MM_ITS ---
EXAMINATION: MM DIAGNOSTIC DIGITAL BREAST TOMOSYNTHESIS, BILATERAL CLINICAL INFORMATION: Follow-up right breast calcifications 12:00 axis anterior one third. COMPARISON: Mammography: 04/14/2022, 10/23/2021, 04/11/2021, 04/03/2021, 04/03/2020. TECHNIQUE: Digital breast tomosynthesis is performed in both the craniocaudal and mediolateral oblique views along with computer-aided detection (CAD). Synthesized 2D images are generated from the tomosynthesis. In addition, 2-D spot magnification right CC and ML views were also performed. FINDINGS: There are scattered areas of fibroglandular density (ACR BI-RADS breast composition Category b). Calcifications in the upper 12:00 axis of the right breast, anterior one third, have actually decreased in number since 04/11/2021, and have a stable benign rounded morphology. These are benign and no further follow-up is recommended. Otherwise, there are are no suspicious masses, suspicious grouped calcifications, or areas of architectural distortion in either breast. The parenchymal pattern is stable from prior exams. MM/MM tomosynthesis diagnostic BI IMPRESSION: There are no findings suspicious for malignancy in either breast. Right breast 12:00 calcifications are benign. No further follow-up recommended. Recommend the patient resume routine annual mammography. ASSESSMENT: BI-RADS BI-RADS 2 - Benign Findings RECOMMENDATION: 1 year F/U Results were provided to the patient at time of visit by the technologist. This patient's information was entered into a reminder system with a target due date for their next mammogram.
== END 2023-05-28 10:36 | disposition home or self-care (01) ==
LOC: HO.MAMMO 10:35
PROVIDERS: PCP Internal Medicine Geriatric Medicine; Visit Provider Internal Medicine Geriatric Medicine
DX: R92.1 Mammographic calcification found on diagnostic imaging of breast (principal)
CPT/HCPCS: 77062; 77066

== ENCOUNTER → 2023-05-28 11:00 | Outpatient (BNV) | payer OTHER, SELFPAY | PROVIDERS: PCP Internal Medicine Geriatric Medicine; Visit Provider Radiology Diagnostic Radiology | DX: R92.1 Mammographic calcification found on diagnostic imaging of breast (principal) | CPT/HCPCS: 77062; 77066 ==

== ENCOUNTER 2023-06-08 09:49 | Outpatient (AMB) | payer OTHER, SELFPAY ==
--- NOTE | 2023-06-08 10:13 | MHC.OFFVIS ---
Intake Vital Signs 06/08/23 10:15 Height 5 ft 2 in Weight 141 lb 1.533 oz BMI 25.8 BP 85/59 L Blood Pressure Location Lt brachial Position Sitting Pulse 86 Intake Visit Reasons: November pt second opinion Intake Note: Makenna presents in the office as a follow up second opinion. CC: Nausea, vomiting, constipation most of the time that turns to diarrhea. She feels nauseous all day and everything she eats she will vomit out. Allergies No Known Allergies [No Known Allergies*] Allergy (Verified 06/08/23 10:16) HPI HPI Comments History of Present Illness Details This is a 68y.o F with PMH of who is here for second opinion for constipation. Pt reports she is here for worsening ulcerative colitis . Did clarify and reassure that so far on my review does not seem to have any evidence of IBD or UC. Last colo done in 2021 showed normal mucosa. Pt currently reports taking Linzess 290 Motegrity 2mg Miralax 17g 1-2 times a day. Reglan 10 TID -- discontinued it >1 month ago due to involuntary movements On this regimen pt has 3-4 BMs per day and BMs are soft to loose. No straining or blood. No fam hx of CRC. Diet has minimal fiber - has fruits a few times a months may be. Drinks at least 10 cups of fluids a day. [facility] Medical History (Updated 06/24/23 @ 10:23 by Ileana Martinez MD) Anemia Ileus Tubular adenoma of colon History of pancreatitis Irritable bowel syndrome with constipation Diverticulitis GERD (gastroesophageal reflux disease) Chronic idiopathic constipation Surgical History History of esophagogastroduodenoscopy (EGD) Hx of colonoscopy Family History Father No problems noted. Mother Diabetes Melanoma Family history of hypertension Family history of diabetes mellitus Social History Household Members: Family Housing: House Alcohol intake: never Patient Tobacco Use Status: Never used Tobacco Current occupational status: disabled Review of Systems Const All systems reviewed & are unremarkable except as noted in HPI and below Physical Exam Vital Signs: Last Vital Signs Pulse 86 06/08/23 10:15 BP 85/59 L 06/08/23 10:15 BMI result Body Mass Index 25.8 Gen appear: NAD HEENT: nonicteric, no cervical lymphadenopathy Chest: CTA CVS: Regular S1/S2 Abd: soft, nontender, nondistended, bowel sounds + Ext: no peripheral edema Neuro: A/Ox3, noted to move all extremities spontaneously Psych: interacting appropriately Assessment & Plan Assessment & Plan (1) Irritable bowel syndrome with constipation: Code(s): K58.1 - Irritable bowel syndrome with constipation Plan Overall assessment consistent with irritable bowel syndrome given her report of left sided abd cramping that improves with defecation. 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 Advised her to incorporate more fiber in her diet to help with stool regularity and consistency. Increase hydration. With these measures, suspect may not need to take much more than a combination of stimulant+osmotic laxative - we reviewed that she should add day time senna or bisacodyl 30 mins before breakfast and to take Miralax every day. Goal is to have a soft BM every day to every other day without straining. If she is able to achieve this, can slowly de-escalate motegrity followed by linzess. If however, global sx of IBS such as pain/bloating etc increase with this strategy, can stay on linzess on a dose titrated to effect as miralax is unlikely to help with that. Follow up in 8 weeks to review response to above - pt aware will be following back with Ethel Benjamin FLUTE TEACHER for next visit in this provider's absence Medications: New polyethylene glycol 3350 (Miralax) 17 grams PO DAILY 238 grams 1RF Discontinued metoclopramide HCl Provider aware of possible interactions with seroquel and is monitoring Discontinued Reason: Doctor's Order 10 mg PO QIDACHS 120 tabs 6RF K59.9 - Functional intestinal disorder, unspecified Coding Level of Care Code Est Pt Level 4 (61865) Diagnoses Irritable bowel syndrome with constipation K58.1
[2023-06-08 10:15] VITALS: BP 85/59; PULSE 86; BMI 25.8
== END 2023-06-08 10:51 | disposition home or self-care (01) ==
PROVIDERS: PCP Internal Medicine Geriatric Medicine; Visit Provider Internal Medicine
DX: K58.1 Irritable bowel syndrome with constipation (principal)
CPT/HCPCS: 99214

== ENCOUNTER → 2023-06-08 09:49 | Outpatient (BNVA) | payer OTHER, SELFPAY | PROVIDERS: PCP Internal Medicine Geriatric Medicine; Visit Provider Internal Medicine | DX: K58.1 Irritable bowel syndrome with constipation (principal) | CPT/HCPCS: 99212 ==

== ENCOUNTER 2023-08-12 11:48 | Outpatient (AMB) | payer OTHER, SELFPAY ==
--- NOTE | 2023-08-12 12:30 | MHC.OFFVIS ---
Intake Vital Signs 08/12/23 12:47 Height 5 ft 2 in Weight 139 lb 12.369 oz BMI 25.6 BP 109/72 Blood Pressure Location Rt brachial Position Sitting Pulse 109 H Intake Visit Reasons: 5 week follow up [facility] Intake Note: Patient returns to in office 5 weeks follow up for [facility] CC: Patient c/o epigastric pain that is like a constant discomfort. 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 She continues to be bloated and nauseated with generalized abdominal pain. She is having hypotension, likely r/t not eating or drinking enough - discuss Gaitoraide. Her medications are as follows:? Linzess 290 micro g, BEntyl, famotidine, creon, reglan 10mg, omeprazole, Motegrity, simethicone, senna, Miralax, bisacodyl, and milk of magnesia. I have run out of ideas, so I will refer her back to Dr. Pappas (for consideration of colon surgery) and to one of the gastro MD's for second opinion. She is agreeable to this. (Apparently this was discussed during her 12/2021 hospitalization during a consultation with Dr Pappas as follows: ...If the patient is truly compliant with her bowel regimen failing, the opinion of a colorectal surgeon regarding partial or total colectomy for chronic constipation would be in order.... This was when she was hospitalized for an ileus.) ROV with next appt. (2) GERD (gastroesophageal reflux disease): Comment: This resolved after we got her bowels moving and she does not need any acid suppression therapy aeb Code(s): K21.9 - Gastro-esophageal reflux disease without esophagitis (3) Small bowel motility disorder: Code(s): K59.9 - Functional intestinal disorder, unspecified (4) Diverticulitis: Code(s): K57.92 - Diverticulitis of intestine, part unspecified, without perforation or abscess without bleeding Orders: Referrals General Surgery Re [facility] K57.92 - Diverticu litis of intestine , part unspecified , without perforat ion or abscess wit hout bleeding Dr Nguyen note; Assessment & Plan (1) Irritable bowel syndrome with constipation: Code(s): K58.1 - Irritable bowel syndrome with constipation Plan Overall assessment consistent with irritable bowel syndrome given her report of left sided abd cramping that improves with defecation. 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 Advised her to incorporate more fiber in her diet to help with stool regularity and consistency. Increase hydration. With these measures, suspect may not need to take much more than a combination of stimulant+osmotic laxative - we reviewed that she should add day time senna or bisacodyl 30 mins before breakfast and to take Miralax every day. Goal is to have a soft BM every day to every other day without straining. If she is able to achieve this, can slowly de-escalate motegrity followed by linzess. If however, global sx of IBS such as pain/bloating etc increase with this strategy, can stay on linzess on a dose titrated to effect as miralax is unlikely to help with that. Follow up in 8 weeks to review response to above - pt aware will be following back with Ethel Benjamin DRUG COUNSELOR for next visit in this provider's absence Medications: New polyethylene glyco l 3350 (Miralax) 17 grams PO DAILY 238 grams 1RF Discontinued metoclopramide HCl Provider aware of possible inter actions with seroq uel and is monitor ing Discontinue d Reason: Doctor' s Order 10 mg PO QIDACHS 120 tabs 6RF K59.9 - Functional intestinal disord er, unspecified REVIEW OF SURGICAL NOTE -Hilario Bowen Assessment & Plan (1) Abdominal cramping: Code(s): R10.9 - Unspecified abdominal pain (2) Nausea and vomiting: Code(s): R11.2 - Nausea with vomiting, unspecified Plan At present, there are no acute surgical issues. I am not precisely sure why she presented to the surgical clinic for. I do not recommend any kind of breath section of her colon for issues at this time. Patient is already scheduled to follow up with a 2nd opinion with another improvement engineer. At present, will treat patient conservatively and she will follow-up p.r.n. TODAY'S VISIT She saw Dr. Martinez who wanted her to stop the Motegrity and utilize bisacodyl with MiraLax. However given the fact that she drinks quite a lot of water when she uses the MiraLax she does has water past straight through her colon. Even with this, she does not have any relief from the bloating. We have had several x-rays of the abdomen that do seem to show air fluid levels in trapping and she also has a history of ileus. The fact that none of the constipation medications have affected the bloating (even though Linzess a Motegrity did help her move her bowels) please make quite concerned as to what the underlying cause is. It really does seem like she is not mobilizing gas very well. She did try what Dr. Martinez suggested but this also was not helpful. At this point I think were going to do a trial of budesonide to see if there is any inflammation contributing to her symptoms and I will reinstate her Motegrity with her Linzess. Going forward I may want to consider if there is any study particular to address vascular demand of the got to see if there is any circulatory issues causing intermittent ischemia. Return office visit in [address] [facility] Medical History (Updated 06/24/23 @ 10:23 by Ileana Martinez MD) Anemia Ileus Tubular adenoma of colon History of pancreatitis Irritable bowel syndrome with constipation Diverticulitis GERD (gastroesophageal reflux disease) Chronic idiopathic constipation Surgical History History of esophagogastroduodenoscopy (EGD) Hx of colonoscopy Family History Father No problems noted. Mother Diabetes Melanoma Family history of hypertension Family history of diabetes mellitus Social History Household Members: Family Housing: House Alcohol intake: never Patient Tobacco Use Status: Never used Tobacco Current occupational status: disabled Review of Systems Const Denies fatigue, Denies fever(s), Denies night sweats, Denies poor appetite and Denies weight loss Eyes Details: glasses Reports requires corrective lenses ENT Reports Normal hearing present, Denies dysphagia, Denies odynophagia, Denies throat swelling and Denies tongue swelling Card Reports no additional complaints Resp Reports no additional complaints GI Reports abdominal pain, Denies melena, Reports bloating, Denies hematochezia, Reports constipation, Denies GI cramping, Denies dysphagia, Denies excessive flatus, Denies early satiety, Reports heartburn, Denies diarrhea, Denies nausea, Denies odynophagia, Denies vomiting and Denies hematemesis Skin/Breast Denies pruritus, Denies lesions, Denies rash and Denies jaundice Neuro Reports Normal hearing present and Denies Abnormal speech present Endo Denies fatigue Aller/Immun Denies throat swelling and Denies tongue swelling Physical Exam Vital Signs: Last Vital Signs Pulse 109 H 08/12/23 12:47 BP 109/72 08/12/23 12:47 BMI result Body Mass Index 25.6 Const General: cooperative, no acute distress, well developed and well groomed Nutritional Appearance: average body habitus and well nourished Orientation/consciousness: oriented to person, oriented to place and oriented to time Limitations: No language barrier HEENT Head: Yes normocephalic and Yes atraumatic Eyes General: appearance normal, both eyes and all related structures Pupils: Equal, round and reactive pupils present Neck Neck: Yes normal visual inspection and Yes no lymphadenopathy Thyroid: Thyroid normal Resp Effort & Inspection: normal respiratory effort and able to speak in complete sentences Auscultation: clear to auscultation bilaterally Cardio Rate: regular rate Rhythm: regular rhythm Heart sounds: Normal, physiologic split S2 sound present Peripheral pulses: radial pulses present and posterior tibial pulses present GI Inspection: No distended and No Abdominal panniculus present Palpation (GI): Soft to palpation, nontender, no guarding, not rigid and No hepatosplenomegaly present Percussion: Yes normal to percussion Auscultation: normal bowel sounds Rectal Exam - Female: deferred Skin General skin exam: no rashes or lesions noted, turgor normal, skin not dry, no jaundice, No spider nevi and no striae Rashes: no rashes Nails: normal Neuro General: oriented to person, oriented to place and oriented to time Cranial nerves: Yes Equal, round and reactive pupils present and Yes Normal hearing present Speech: No Abnormal speech present Extrem General: Yes normal to inspection, No clubbing, No cyanosis and No edema Psych Appearance: grossly normal and well kempt Mental Status: mental status grossly normal Speech and movement: Normal speech and movement present Affect: normal affect Attitude: cooperative Thought process: Normal thought process present and not confabulating Thought content: Normal thought content present Insight: Limited insight present (Psych) Judgement: Limited judgement present (Psych) Results Reviewed Results Reviewed: Dr Nguyen note; Assessment & Plan (1) Irritable bowel syndrome with constipation: Code(s): K58.1 - Irritable bowel syndrome with constipation Plan Overall assessment consistent with irritable bowel syndrome given her report of left sided abd cramping that improves with defecation. 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 Advised her to incorporate more fiber in her diet to help with stool regularity and consistency. Increase hydration. With these measures, suspect may not need to take much more than a combination of stimulant+osmotic laxative - we reviewed that she should add day time senna or bisacodyl 30 mins before breakfast and to take Miralax every day. Goal is to have a soft BM every day to every other day without straining. If she is able to achieve this, can slowly de-escalate motegrity followed by linzess. If however, global sx of IBS such as pain/bloating etc increase with this strategy, can stay on linzess on a dose titrated to effect as miralax is unlikely to help with that. Follow up in 8 weeks to review response to above - pt aware will be following back with Ethel Benjamin DRUG COUNSELOR for next visit in this provider's absence Medications: New polyethylene glycol 3350 (Miralax) 17 grams PO DAILY 238 grams 1RF Discontinued metoclopramide HCl Provider aware of possible interactions with seroquel and is monitoring Discontinued Reason: Doctor's Order 10 mg PO QIDACHS 120 tabs 6RF K59.9 - Functional intestinal disorder, unspecified REVIEW OF SURGICAL NOTE -n Hilario Nunes Assessment & Plan (1) Abdominal cramping: Code(s): R10.9 - Unspecified abdominal pain (2) Nausea and vomiting: Code(s): R11.2 - Nausea with vomiting, unspecified Plan At present, there are no acute surgical issues. I am not precisely sure why she presented to the surgical clinic for. I do not recommend any kind of breath section of her colon for issues at this time. Patient is already scheduled to follow up with a 2nd opinion with another improvement engineer. At present, will treat patient conservatively and she will follow-up p.r.n. Assessment & Plan Assessment & Plan (1) Irritable bowel syndrome with constipation: Code(s): K58.1 - Irritable bowel syndrome with constipation (2) Diverticulitis: Code(s): K57.92 - Diverticulitis of intestine, part unspecified, without perforation or abscess without bleeding (3) Small bowel motility disorder: Code(s): K59.9 - Functional intestinal disorder, unspecified (4) GERD (gastroesophageal reflux disease): Comment: This resolved after we got her bowels moving and she does not need any acid suppression therapy aeb Code(s): K21.9 - Gastro-esophageal reflux disease without esophagitis (5) Ileus: Code(s): K56.7 - Ileus, unspecified (6) Chronic idiopathic constipation: Code(s): K59.04 - Chronic idiopathic constipation Plan She saw Dr. Martinez who wanted her to stop the Motegrity and utilize bisacodyl with MiraLax. However given the fact that she drinks quite a lot of water when she uses the MiraLax she does has water past straight through her colon. Even with this, she does not have any relief from the bloating. We have had several x-rays of the abdomen that do seem to show air fluid levels in trapping and she also has a history of ileus. The fact that none of the constipation medications have affected the bloating (even though Linzess a Motegrity did help her move her bowels) please make quite concerned as to what the underlying cause is. It really does seem like she is not mobilizing gas very well. She did try what Dr. Juan suggested but this also was not helpful. At this point I think were going to do a trial of budesonide to see if there is any inflammation contributing to her symptoms and I will reinstate her Motegrity with her Linzess. Going forward I may want to consider if there is any study particular to address vascular demand of the got to see if there is any circulatory issues causing intermittent ischemia. Return office visit in 6 weeks Medications: New budesonide ER 9 mg (3 x 3 mg) PO DAILY 90 ea 2RF K59.9 - Functional intestinal disorder, unspecified, K56.7 - Ileus, unspecified prucalopride (Motegrity) 2 mg PO DAILY 30 tabs 6RF K58.1 - Irritable bowel syndrome with constipation Changed From polyethylene glycol 3350 17 grams PO DAILY 238 grams 1RF To polyethylene glycol 3350 (Miralax) 17 grams PO DAILY 238 grams 1RF Refilled bisacodyl (Dulcolax (bisacodyl)) 10 mg (2 x 5 mg) PO BEDTIME 60 tabs 6RF 30 days K59.04 - Chronic idiopathic constipation famotidine 40 mg PO BEDTIME 30 tabs 0RF K21.9 - Gastro-esophageal reflux disease without esophagitis dicyclomine 10 mg PO QID 360 caps 0RF R10.9 - Unspecified abdominal pain linaclotide (Linzess) 290 mcg PO DAILY 30 caps 3RF [id number] 24,000-76,000 -120,000 unit (Creon) 1 cap PO QID 120 caps 2RF omeprazole 40 mg PO DAILY 90 caps 3RF K21.9 - Gastro-esophageal reflux disease without esophagitis sennosides (senna) 17.2 mg (2 x 8.6 mg) PO BEDTIME 60 tabs 6RF constipation K59.04 - Chronic idiopathic constipation simethicone 180 mg PO QID 120 caps 0RF Coding Level of Care Code Est Pt Level 3 (76972) Diagnoses Irritable bowel syndrome with constipation K58.1 Diverticulitis K57.92 Small bowel motility disorder K59.9 GERD (gastroesophageal reflux disease) K21.9 Ileus K56.7 Chronic idiopathic constipation K59.04
[2023-08-12 12:47] VITALS: BP 109/72; PULSE 109; BMI 25.6
== END 2023-08-12 14:28 | disposition home or self-care (01) ==
PROVIDERS: PCP Internal Medicine Geriatric Medicine; Visit Provider Nurse Practitioner
DX: K58.1 Irritable bowel syndrome with constipation (principal); K57.92 Diverticulitis of intestine, part unspecified, without perforation or abscess without bleeding; K59.9 Functional intestinal disorder, unspecified; K21.9 Gastro-esophageal reflux disease without esophagitis; K56.7 Ileus, unspecified; K59.04 Chronic idiopathic constipation
CPT/HCPCS: 99213

== ENCOUNTER → 2023-08-12 11:48 | Outpatient (BNVA) | payer OTHER, SELFPAY | PROVIDERS: PCP Internal Medicine Geriatric Medicine; Visit Provider Nurse Practitioner | DX: K58.1 Irritable bowel syndrome with constipation (principal); K59.04 Chronic idiopathic constipation; K57.92 Diverticulitis of intestine, part unspecified, without perforation or abscess without bleeding; K59.9 Functional intestinal disorder, unspecified; K21.9 Gastro-esophageal reflux disease without esophagitis; K56.7 Ileus, unspecified | CPT/HCPCS: 99212 ==

== ENCOUNTER 2023-09-24 12:38 | Outpatient (AMB) | payer OTHER, SELFPAY ==
--- NOTE | 2023-09-24 12:50 | A.OFFVIS_ITS ---
Intake Vital Signs 09/24/23 12:51 Height 5 ft 2 in Intake Visit Reasons: 6 weeks f/u [facility] Intake Note: Patient returns to in office 5 weeks follow up for [facility] CC: Patient c/o epigastric pain that is like a constant discomfort. Customer Experience Retail Clerk Required: No Accompanied by: Self / Same As Patient Allergies No Known Allergies [No Known Allergies*] Allergy (Verified 06/08/23 10:16) PFS Medical History (Updated 06/24/23 @ 10:23 by Ileana Martinez MD) Anemia Ileus Tubular adenoma of colon History of pancreatitis Irritable bowel syndrome with constipation Diverticulitis GERD (gastroesophageal reflux disease) Chronic idiopathic constipation Surgical History History of esophagogastroduodenoscopy (EGD) Hx of colonoscopy Family History Father No problems noted. 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
--- NOTE | 2023-09-24 12:50 | MHC.OFFVIS ---
Intake Vital Signs 09/24/23 12:51 Height 5 ft 2 in Weight 136 lb 10.986 oz BMI 25.0 BP 106/71 Blood Pressure Location Rt brachial Position Sitting Pulse 104 H Intake Visit Reasons: 6 weeks f/u [facility] Intake Note: Patient presents to in office visit today in 6 weeks follow up of [facility]. CC: Patient c/o epigastric pain, nausea, constipation, diarrhea, and vomiting after eating. Symptoms worst the last 2 weeks. She states that she d/c the Budesonide d/t swelling from throat. It Desktop Support Technician Required: No Accompanied by: Self / Same As Patient Allergies No Known Allergies [No Known Allergies*] Allergy (Verified 09/24/23 12:55) HPI 6 weeks f/u [facility] HPI Details Assessment & Plan (1) Irritable bowel syndrome with constipation: Code(s): K58.1 - Irritable bowel syndrome with constipation (2) Diverticulitis: Code(s): K57.92 - Diverticulitis of intestine, part unspecified, without perforation or abscess without bleeding (3) Small bowel motility disorder: Code(s): K59.9 - Functional intestinal disorder, unspecified (4) GERD (gastroesophageal reflux disease): Comment: This resolved after we got her bowels moving and she does not need any acid suppression therapy aeb Code(s): K21.9 - Gastro-esophageal reflux disease without esophagitis (5) Ileus: Code(s): K56.7 - Ileus, unspecified (6) Chronic idiopathic constipation: Code(s): K59.04 - Chronic idiopathic constipation Plan She saw Dr. Martinez who wanted her to stop the Motegrity and utilize bisacodyl with MiraLax. However given the fact that she drinks quite a lot of water when she uses the MiraLax she does has water past straight through her colon. Even with this, she does not have any relief from the bloating. We have had several x-rays of the abdomen that do seem to show air fluid levels in trapping and she also has a history of ileus. The fact that none of the constipation medications have affected the bloating (even though Linzess a Motegrity did help her move her bowels) please make quite concerned as to what the underlying cause is. It really does seem like she is not mobilizing gas very well. She did try what Dr. Martinez suggested but this also was not helpful. At this point I think were going to do a trial of budesonide to see if there is any inflammation contributing to her symptoms and I will reinstate her Motegrity with her Linzess. Going forward I may want to consider if there is any study particular to address vascular demand of the got to see if there is any circulatory issues causing intermittent ischemia. Return office visit in 6 weeks Medications: New budesonide ER 9 mg (3 x 3 mg) PO DAILY 90 ea 2RF K59.9 - Functional intestinal disord er, unspecified, K 56.7 - Ileus, unsp ecified prucalopride (Mote grity) 2 mg PO DAILY 30 t abs 6RF K58.1 - Irritable bowel syndrome wit h constipation Changed From polyethylene glyco l 3350 17 grams PO DAILY 238 grams 1RF To polyethylene glyco l 3350 (Miralax) 17 grams PO DAILY 238 grams 1RF Refilled bisacodyl (Dulcola x (bisacodyl)) 10 mg (2 x 5 mg) P O BEDTIME 60 tabs 6RF 30 days K59.04 - Chronic i diopathic constipa tion famotidine 40 mg PO BEDTIME 3 0 tabs 0RF K21.9 - Gastro-eso phageal reflux dis ease without esoph agitis dicyclomine 10 mg PO QID 360 c aps 0RF R10.9 - Unspecifie d abdominal pain linaclotide (Linze ss) 290 mcg PO DAILY 3 0 caps 3RF txaxdu-nbnjalqd-ce ylase 24,000-76,00 0 -120,000 unit (C reon) 1 cap PO QID 120 c aps 2RF omeprazole 40 mg PO DAILY 90 caps 3RF K21.9 - Gastro-eso phageal reflux dis ease without esoph agitis sennosides (senna) 17.2 mg (2 x 8.6 m g) PO BEDTIME 60 t abs 6RF constipati on K59.04 - Chronic i diopathic constipa tion simethicone 180 mg PO QID 120 caps 0RF TODAY'S VISIT She continues to feel quite poorly. The budesonide only made her feel more sick so she stopped it which is appropriate. She now continues on all of her constipation medicines including the Movantik but is not moving her bowels consistently are well. She is nauseous almost all the time in any food she eats makes her very nauseated. I am uncertain of the exact etiology but in the past we did have her on Reglan and I think this would at least help with the nausea and may help with the constipation so will restart this at 10 mg 4 times a day. I need to watch her with the Reglan as she is also on Seroquel for potential interactions. The patient was educated about possible serotonin syndrome and other side effects that would necessitate discontinuance of the Reglan. Return office visit in 4 weeks, but also I am referring her to [facility] for 2nd opinion since she has seen a physician here without resolution of her condition and I have worked with her for quite a long time and I just can not seem to get a handle on how to manage her overall burden. FOR[facility]LY [facility], [facility] Medical History Anemia Ileus Tubular adenoma of colon History of pancreatitis Irritable bowel syndrome with constipation Diverticulitis GERD (gastroesophageal reflux disease) Chronic idiopathic constipation Surgical History History of esophagogastroduodenoscopy (EGD) Hx of colonoscopy Family History Father No problems noted. Mother Diabetes Melanoma Family history of hypertension Family history of diabetes mellitus Social History Household Members: Family Housing: House Alcohol intake: never Patient Tobacco Use Status: Never used Tobacco Current occupational status: disabled Review of Systems Const Denies fatigue, Denies fever(s), Reports malaise, Denies night sweats, Reports poor appetite and Denies weight loss Eyes Details: glasses Reports requires corrective lenses ENT Reports Normal hearing present, Denies dental pain, Denies dysphagia, Denies hearing loss, Denies mouth pain, Denies odynophagia, Denies throat swelling, Denies tongue swelling and Reports other (Dentition adequate) Card Reports no additional complaints Resp Reports no additional complaints GI Details: Denies abdominal pain, Denies melena, Reports bloating, Denies hematochezia, Reports constipation, Reports GI cramping, Denies dysphagia, Denies excessive flatus, Denies early satiety, Reports heartburn, Denies diarrhea, Reports nausea, Denies odynophagia, Reports vomiting and Denies hematemesis Skin/Breast Denies pruritus, Denies lesions, Denies rash and Denies jaundice Neuro Reports Normal hearing present and Denies Abnormal speech present Endo Denies fatigue Aller/Immun Denies throat swelling and Denies tongue swelling Physical Exam Vital Signs: Last Vital Signs Pulse 104 H 09/24/23 12:51 BP 106/71 09/24/23 12:51 BMI result Body Mass Index 25.0 Const General: cooperative, no acute distress, well developed and well groomed Nutritional Appearance: average body habitus and well nourished Orientation/consciousness: oriented to person, oriented to place and oriented to time Limitations: No language barrier HEENT Head: Yes normocephalic and Yes atraumatic Eyes General: appearance normal, both eyes and all related structures Pupils: Equal, round and reactive pupils present Neck Neck: Yes normal visual inspection and Yes no lymphadenopathy Thyroid: Thyroid normal Resp Effort & Inspection: normal respiratory effort and able to speak in complete sentences Auscultation: clear to auscultation bilaterally Cardio Rate: regular rate Rhythm: regular rhythm Heart sounds: Normal, physiologic split S2 sound present Peripheral pulses: radial pulses present and posterior tibial pulses present GI Inspection: Yes distended and No Abdominal panniculus present Palpation (GI): Soft to palpation, nontender, no guarding, not rigid and No hepatosplenomegaly present Percussion: Yes normal to percussion Auscultation: normal bowel sounds Rectal Exam - Female: deferred Skin General skin exam: no rashes or lesions noted, turgor normal, skin not dry, no jaundice, No spider nevi and no striae Rashes: no rashes Nails: normal Neuro General: oriented to person, oriented to place and oriented to time Cranial nerves: Yes Equal, round and reactive pupils present and Yes Normal hearing present Speech: No Abnormal speech present Extrem General: Yes normal to inspection, No clubbing, No cyanosis and No edema Psych Appearance: grossly normal and well kempt Mental Status: mental status grossly normal Speech and movement: Normal speech and movement present Affect: normal affect Attitude: cooperative Thought process: Normal thought process present and not confabulating Thought content: Normal thought content present Insight: Limited insight present (Psych) Judgement: Limited judgement present (Psych) Assessment & Plan Assessment & Plan (1) Irritable bowel syndrome with constipation: Code(s): K58.1 - Irritable bowel syndrome with constipation (2) Small bowel motility disorder: Code(s): K59.9 - Functional intestinal disorder, unspecified (3) Ileus: Code(s): K56.7 - Ileus, unspecified (4) GERD (gastroesophageal reflux disease): Comment: This resolved after we got her bowels moving and she does not need any acid suppression therapy aeb Code(s): K21.9 - Gastro-esophageal reflux disease without esophagitis (5) Chronic idiopathic constipation: Code(s): K59.04 - Chronic idiopathic constipation (6) Nausea and vomiting: Code(s): R11.2 - Nausea with vomiting, unspecified Plan She continues to feel quite poorly. The budesonide only made her feel more sick so she stopped it which is appropriate. She now continues on all of her constipation medicines including the Movantik but is not moving her bowels consistently are well. She is nauseous almost all the time in any food she eats makes her very nauseated. I am uncertain of the exact etiology but in the past we did have her on Reglan and I think this would at least help with the nausea and may help with the constipation so will restart this at 10 mg 4 times a day. I need to watch her with the Reglan as she is also on Seroquel for potential interactions. The patient was educated about possible serotonin syndrome and other side effects that would necessitate discontinuance of the Reglan. She continues on her bisacodyl, dicyclomine, famotidine, Proctosol cream for hemorrhoids, Linzess 290 micro g, Creon 24,000, omeprazole 40 mg a day, MiraLax, Zofran as needed, senna, and simethicone. Medications that could be confounding our efforts towards bowel motility include Effexor, Seroquel, clonidine, amitriptyline, and she is on methylphenidate and I am uncertain how this impacts her bowels. You would think it would stimulate them but apparently that has not the case. Return office visit in 4 weeks, but also I am referring her to [facility] for 2nd opinion since she has seen a physician here without resolution of her condition and I have worked with her for quite a long time and I just can not seem to get a handle on how to manage her overall burden. Return office visit in 4 weeks to see how she is doing with the addition of the Reglan. Orders: Referrals Gastroenterology Referral K59.04 - Chronic idiopathic constipation, R11.2 - Nausea with vomiting, unspecified, K59.9 - Functional intestinal disorder, unspecified Medications: New metoclopramide HCl (Reglan) PROVIDER AWARE OF INTERACTIONS AND IS MONITORING 10 mg PO QIDACHS 120 tabs 3RF Refilled linaclotide (Linzess) 290 mcg PO DAILY 30 caps 6RF famotidine 40 mg PO BEDTIME 30 tabs 6RF K21.9 - Gastro-esophageal reflux disease without esophagitis dicyclomine 10 mg PO QID 360 caps 0RF R10.9 - Unspecified abdominal pain bisacodyl (Dulcolax (bisacodyl)) 10 mg (2 x 5 mg) PO BEDTIME 60 tabs 6RF 30 days K59.04 - Chronic idiopathic constipation Discontinued budesonide ER Discontinued Reason: Doctor's Order 9 mg (3 x 3 mg) PO DAILY 90 ea 2RF K56.7 - Ileus, unspecified, K59.9 - Functional intestinal disorder, unspecified Coding Level of Care Code Est Pt Level 3 (96578) Diagnoses Irritable bowel syndrome with constipation K58.1 Small bowel motility disorder K59.9 Ileus K56.7 GERD (gastroesophageal reflux disease) K21.9 Chronic idiopathic constipation K59.04 Nausea and vomiting R11.2
[2023-09-24 12:51] VITALS: BP 106/71; PULSE 104; BMI 25.0
== END 2023-09-24 13:47 | disposition home or self-care (01) ==
PROVIDERS: PCP Internal Medicine Geriatric Medicine; Visit Provider Nurse Practitioner
DX: K58.1 Irritable bowel syndrome with constipation (principal); K59.9 Functional intestinal disorder, unspecified; K56.7 Ileus, unspecified; K21.9 Gastro-esophageal reflux disease without esophagitis; K59.04 Chronic idiopathic constipation; R11.2 Nausea with vomiting, unspecified
CPT/HCPCS: 99213

== ENCOUNTER → 2023-09-24 12:38 | Outpatient (BNVA) | payer OTHER, SELFPAY | PROVIDERS: PCP Internal Medicine Geriatric Medicine; Visit Provider Nurse Practitioner | DX: K58.1 Irritable bowel syndrome with constipation (principal); K59.04 Chronic idiopathic constipation; K59.9 Functional intestinal disorder, unspecified; K21.9 Gastro-esophageal reflux disease without esophagitis; K56.7 Ileus, unspecified; R11.2 Nausea with vomiting, unspecified | CPT/HCPCS: 99212 ==

== ENCOUNTER 2023-12-21 12:10 | Outpatient (AMB) | payer OTHER, SELFPAY ==
--- NOTE | 2023-12-21 12:13 | MHC.OFFVIS ---
Vital Signs 12/21/23 12:18 Height 5 ft 2 in Weight 134 lb BMI 24.5 BP 88/59 L Blood Pressure Location Lt brachial Position Sitting Pulse 93 Intake Visit Reasons: Follow up [facility] Intake Note: Patient follow up for [facility] Patient cc: nauseas, abdominal discomfort, acid reflex with burning sensation, between diarrhea and constipation and some dizziness and fatigue. Tabular Typist Required: No Accompanied by: Self / Same As Patient Allergies No Known Allergies [No Known Allergies*] Allergy (Verified 12/21/23 12:16) HPI HPI Follow up [facility]: Details: Assessment & Plan (1) Irritable bowel syndrome with constipation: Code(s): K58.1 - Irritable bowel syndrome with constipation (2) Small bowel motility disorder: Code(s): K59.9 - Functional intestinal disorder, unspecified (3) Ileus: Code(s): K56.7 - Ileus, unspecified (4) GERD (gastroesophageal reflux disease): Comment: This resolved after we got her bowels moving and she does not need any acid suppression therapy aeb Code(s): K21.9 - Gastro-esophageal reflux disease without esophagitis (5) Chronic idiopathic constipation: Code(s): K59.04 - Chronic idiopathic constipation (6) Nausea and vomiting: Code(s): R11.2 - Nausea with vomiting, unspecified Plan She continues to feel quite poorly. The budesonide only made her feel more sick so she stopped it which is appropriate. She now continues on all of her constipation medicines including the Movantik but is not moving her bowels consistently are well. She is nauseous almost all the time in any food she eats makes her very nauseated. I am uncertain of the exact etiology but in the past we did have her on Reglan and I think this would at least help with the nausea and may help with the constipation so will restart this at 10 mg 4 times a day. I need to watch her with the Reglan as she is also on Seroquel for potential interactions. The patient was educated about possible serotonin syndrome and other side effects that would necessitate discontinuance of the Reglan. She continues on her bisacodyl, dicyclomine, famotidine, Proctosol cream for hemorrhoids, Linzess 290 micro g, Creon 24,000, omeprazole 40 mg a day, MiraLax, Zofran as needed, senna, and simethicone. Medications that could be confounding our efforts towards bowel motility include Effexor, Seroquel, clonidine, amitriptyline, and she is on methylphenidate and I am uncertain how this impacts her bowels. You would think it would stimulate them but apparently that has not the case. Return office visit in 4 weeks, but also I am referring her to [facility] for 2nd opinion since she has seen a physician here without resolution of her condition and I have worked with her for quite a long time and I just can not seem to get a handle on how to manage her overall burden. Return office visit in 4 weeks to see how she is doing with the addition of the Reglan. Orders: Referrals Gastroenterology Referral K59.04 - Chronic idiopathic constipation, R11.2 - Nausea with vomiting, unspecified, K59.9 - Functional intestinal disorder, unspecified Medications: New metoclopramide HCl (Reglan) PROVIDER AWARE OF INTERACTIONS AND IS MONITORING 10 mg PO QIDACHS 120 tabs 3RF Refilled linaclotide (Linzess) 290 mcg PO DAILY 30 caps 6RF famotidine 40 mg PO BEDTIME 30 tabs 6RF K21.9 - Gastro-esophageal reflux disease without esophagitis dicyclomine 10 mg PO QID 360 caps 0RF R10.9 - Unspecified abdominal pain bisacodyl (Dulcolax (bisacodyl)) 10 mg (2 x 5 mg) PO BEDTIME 60 tabs 6RF 30 days K59.04 - Chronic idiopathic constipation Discontinued budesonide ER Discontinued Reason: Doctor's Order 9 mg (3 x 3 mg) PO DAILY 90 ea 2RF K56.7 - Ileus, unspecified, K59.9 - Functional intestinal disorder, unspecified TODAY'S VISIT She has been unable to get an appt at [facility] until 10/2024!!!! But she booked it. She is having some relief avoiding fats and eating more fruits. She continues on her bisacodyl, dicyclomine, famotidine, Proctosol cream for hemorrhoids, Linzess 290 micro g, Creon 24,000, omeprazole 40 mg a day, MiraLax, Zofran as needed, senna, and simethicone. Medications that could be confounding our efforts towards bowel motility include Effexor, Seroquel, clonidine, amitriptyline, and she is on methylphenidate and I am uncertain how this impacts her bowels. You would think it would stimulate them but apparently that has not the case. I am referring her to [facility] for 2nd opinion since she has seen a physician here without resolution of her condition and I have worked with her for quite a long time and I just can not seem to get a handle on how to manage her overall burden. She is tolerating the reglan well at 10mg qid. This has helped the nausea a little bit will increase to 6x a day. She still does not move her bowels well. We have her on a large variety of medications w/o success - I would be reluctant to advise a partial colectomy w/o a second opinion. ROV 4 weeks. [facility] Medical History Anemia Ileus Tubular adenoma of colon History of pancreatitis Irritable bowel syndrome with constipation Diverticulitis GERD (gastroesophageal reflux disease) Chronic idiopathic constipation Surgical History History of esophagogastroduodenoscopy (EGD) Hx of colonoscopy Family History Father No problems noted. Mother Diabetes Melanoma Family history of hypertension Family history of diabetes mellitus Social History Household Members: Family Housing: House Alcohol intake: never Patient Tobacco Use Status: Never used Tobacco Current occupational status: disabled Review of Systems Const Denies fatigue, Denies fever(s), Denies night sweats, Denies poor appetite and Denies weight loss Eyes Details: glasses Reports requires corrective lenses ENT Reports Normal hearing present, Denies dental pain, Denies dysphagia, Denies hearing loss, Denies mouth pain, Denies odynophagia, Denies throat swelling, Denies tongue swelling and Reports other (Dentition adequate) Card Reports no additional complaints Resp Reports no additional complaints GI Details: Reports abdominal pain, Denies melena, Reports bloating, Denies hematochezia, Reports constipation, Reports GI cramping, Denies dysphagia, Denies excessive flatus, Denies early satiety, Reports heartburn, Denies diarrhea, Reports nausea, Denies odynophagia, Denies vomiting and Denies hematemesis Skin/Breast Denies pruritus, Denies lesions, Denies rash and Denies jaundice Neuro Reports Normal hearing present and Denies Abnormal speech present Endo Denies fatigue Aller/Immun Denies throat swelling and Denies tongue swelling Physical Exam Vital Signs: Last Vital Signs Pulse 93 12/21/23 12:18 BP 88/59 L 12/21/23 12:18 BMI result Body Mass Index 24.5 Const General: cooperative, no acute distress, well developed and well groomed Nutritional Appearance: average body habitus and well nourished Orientation/consciousness: oriented to person, oriented to place and oriented to time Limitations: No language barrier HEENT Head: Yes normocephalic and Yes atraumatic Eyes General: appearance normal, both eyes and all related structures Pupils: Equal, round and reactive pupils present Neck Neck: Yes normal visual inspection and Yes no lymphadenopathy Thyroid: Thyroid normal Resp Effort & Inspection: normal respiratory effort and able to speak in complete sentences Auscultation: clear to auscultation bilaterally Cardio Rate: regular rate Rhythm: regular rhythm Heart sounds: Normal, physiologic split S2 sound present Peripheral pulses: radial pulses present and posterior tibial pulses present GI Inspection: No distended and No Abdominal panniculus present Palpation (GI): Soft to palpation, nontender, no guarding, not rigid and No hepatosplenomegaly present Percussion: Yes normal to percussion Auscultation: normal bowel sounds Rectal Exam - Female: deferred Skin General skin exam: no rashes or lesions noted, turgor normal, skin not dry, no jaundice, No spider nevi and no striae Rashes: no rashes Nails: normal Neuro General: oriented to person, oriented to place and oriented to time Cranial nerves: Yes Equal, round and reactive pupils present and Yes Normal hearing present Speech: No Abnormal speech present Extrem General: Yes normal to inspection, No clubbing, No cyanosis and No edema Psych Appearance: grossly normal and well kempt Mental Status: mental status grossly normal Speech and movement: Normal speech and movement present Affect: normal affect Attitude: cooperative Thought process: Normal thought process present and not confabulating Thought content: Normal thought content present Insight: Limited insight present (Psych) Judgement: Limited judgement present (Psych) Assessment & Plan Assessment & Plan (1) Irritable bowel syndrome with constipation: Code(s): K58.1 - Irritable bowel syndrome with constipation Category: Medical (2) GERD (gastroesophageal reflux disease): Comment: This resolved after we got her bowels moving and she does not need any acid suppression therapy aeb Code(s): K21.9 - Gastro-esophageal reflux disease without esophagitis Category: Medical (3) Chronic idiopathic constipation: Code(s): K59.04 - Chronic idiopathic constipation Category: Medical (4) Ileus: Code(s): K56.7 - Ileus, unspecified Category: Medical (5) Small bowel motility disorder: Code(s): K59.9 - Functional intestinal disorder, unspecified Category: Medical (6) Nausea and vomiting: Code(s): R11.2 - Nausea with vomiting, unspecified Category: Surgical Plan She has been unable to get an appt at [facility] until 10/2024!!!! But she booked it. She is having some relief avoiding fats and eating more fruits. She continues on her bisacodyl, dicyclomine, famotidine, Proctosol cream for hemorrhoids, Linzess 290 micro g, Creon 24,000, omeprazole 40 mg a day, MiraLax, Zofran as needed, senna, and simethicone. Medications that could be confounding our efforts towards bowel motility include Effexor, Seroquel, clonidine, amitriptyline, and she is on methylphenidate and I am uncertain how this impacts her bowels. You would think it would stimulate them but apparently that has not the case. I am referring her to [facility] for 2nd opinion since she has seen a physician here without resolution of her condition and I have worked with her for quite a long time and I just can not seem to get a handle on how to manage her overall burden. She is tolerating the reglan well at 10mg qid. This has helped the nausea a little bit will increase to 6x a day. She still does not move her bowels well. We have her on a large variety of medications w/o success - I would be reluctant to advise a partial colectomy w/o a second opinion. ROV 4 weeks. Medications: New rabeprazole (AcipHex) 20 mg PO BID 60 tabs 6RF K21.9 - Gastro-esophageal reflux disease without esophagitis, R11.2 - Nausea with vomiting, unspecified Changed From metoclopramide HCl PROVIDER AWARE OF INTERACTIONS AND IS MONITORING 10 mg PO QIDACHS 120 tabs 3RF To metoclopramide HCl (Reglan) PROVIDER AWARE OF INTERACTIONS AND IS MONITORING 10 mg PO .six times a day 180 tabs 6RF Refilled sennosides (senna) 17.2 mg (2 x 8.6 mg) PO BEDTIME 60 tabs 6RF constipation K59.04 - Chronic idiopathic constipation Discontinued omeprazole Discontinued Reason: Doctor's Order 40 mg PO DAILY 90 caps 0RF K21.9 - Gastro-esophageal reflux disease without esophagitis Coding Level of Care Code Est Pt Level 3 (29864) Diagnoses Irritable bowel syndrome with constipation K58.1 GERD (gastroesophageal reflux disease) K21.9 Chronic idiopathic constipation K59.04 Ileus K56.7 Small bowel motility disorder K59.9 Nausea and vomiting R11.2
[2023-12-21 12:18] VITALS: BP 88/59; PULSE 93; BMI 24.5
== END 2023-12-21 12:40 | disposition home or self-care (01) ==
PROVIDERS: PCP Internal Medicine Geriatric Medicine; Visit Provider Nurse Practitioner
DX: K58.1 Irritable bowel syndrome with constipation (principal); K21.9 Gastro-esophageal reflux disease without esophagitis; K59.04 Chronic idiopathic constipation; K56.7 Ileus, unspecified; K59.9 Functional intestinal disorder, unspecified; R11.2 Nausea with vomiting, unspecified
CPT/HCPCS: 99213

== ENCOUNTER → 2023-12-21 12:10 | Outpatient (BNVA) | payer OTHER, SELFPAY | PROVIDERS: PCP Internal Medicine Geriatric Medicine; Visit Provider Nurse Practitioner | DX: K59.04 Chronic idiopathic constipation (principal); K58.1 Irritable bowel syndrome with constipation; K21.9 Gastro-esophageal reflux disease without esophagitis; K56.7 Ileus, unspecified; K59.9 Functional intestinal disorder, unspecified; R11.2 Nausea with vomiting, unspecified; Z79.899 Other long term (current) drug therapy | CPT/HCPCS: 99212 ==

== ENCOUNTER 2024-01-18 08:54 | Outpatient (REF) | payer OTHER, SELFPAY ==
[2024-01-18 12:12] LABS: Creatinine Urine 239.15 mg/dL; Microalbum/Creatinine Ratio Ur 7.5 ug/mg cr (<30)
[2024-01-18 12:21] LABS: Alanine Aminotransferase 19 U/L (0-31); Albumin Level 4.3 g/dL (3.5-5.0); Alkaline Phosphatase 110 U/L (39-117); Anion Gap 14 (12-20); Aspartate Amino Transferase 19 U/L (5-31); Bilirubin Total 0.3 mg/dL (0.0-1.0); Blood Urea Nitrogen 14 mg/dL (9-16); Calcium 9.7 mg/dL (8.4-10.2); Carbon Dioxide 27 mmol/L (22-29); Chloride 103 mmol/L (96-108); Cholesterol 184 mg/dL (<200); Estimated Glomerular Filt Rate > 60; Glucose Random 162 mg/dL (60-115); HDL Cholesterol 59 mg/dL (>40); LDL Cholesterol Calculated 80 mg/dL (<100); Potassium 4.1 mmol/L (3.3-5.1); Sodium 140 mmol/L (135-145); Total Protein 6.8 g/dL (6.5-8.0); Triglycerides 225 mg/dL (<150)
== END 2024-01-18 08:55 | disposition home or self-care (01) ==
LOC: HO.HHCL 08:54
PROVIDERS: Visit Provider Internal Medicine Geriatric Medicine
DX: E11.9 Type 2 diabetes mellitus without complications (principal); K59.04 Chronic idiopathic constipation; K21.9 Gastro-esophageal reflux disease without esophagitis; K59.9 Functional intestinal disorder, unspecified; K56.7 Ileus, unspecified; R11.2 Nausea with vomiting, unspecified
CPT/HCPCS: 36415; 80053; 80061; 82043; 82570; 99212

== ENCOUNTER 2024-01-18 14:36 | Outpatient (AMB) | payer OTHER, SELFPAY ==
--- NOTE | 2024-01-18 14:40 | A.OFFVIS_ITS ---
Vital Signs 01/18/24 14:46 Height 5 ft 2 in Weight 134 lb 14.766 oz BMI 24.7 BP 108/69 Blood Pressure Location Lt brachial Position Sitting Pulse 109 H Intake Visit Reasons: 4 week follow up Intake Note: Makenna presents in office today in 4 weeks follow up of IBS. CC: Patient c/o abdominal pain, dizzinnes, fatigue, constipation, nausea, and vomiting. She states that she is afraid of eating d/t abd pain. 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: No Accompanied by: Self / Same As Patient Allergies No Known Allergies [No Known Allergies*] Allergy (Verified 01/18/24 14:51) HPI HPI 4 week follow up: Details: Assessment & Plan (1) Irritable bowel syndrome with constipation: Code(s): K58.1 - Irritable bowel syndrome with constipation Category: Medical (2) GERD (gastroesophageal reflux disease): Comment: This resolved after we got her bowels moving and she does not need any acid suppression therapy aeb Code(s): K21.9 - Gastro-esophageal reflux disease without esophagitis Category: Medical (3) Chronic idiopathic constipation: Code(s): K59.04 - Chronic idiopathic constipation Category: Medical (4) Ileus: Code(s): K56.7 - Ileus, unspecified Category: Medical (5) Small bowel motility disorder: Code(s): K59.9 - Functional intestinal disorder, unspecified Category: Medical (6) Nausea and vomiting: Code(s): R11.2 - Nausea with vomiting, unspecified Category: Surgical Plan She has been unable to get an appt at [facility] until 10/2024!!!! But she booked it. She is having some relief avoiding fats and eating more fruits. She continues on her bisacodyl, dicyclomine, famotidine, Proctosol cream for hemorrhoids, Linzess 290 micro g, Creon 24,000, omeprazole 40 mg a day, MiraLax, Zofran as needed, senna, and simethicone. Medications that could be confounding our efforts towards bowel motility include Effexor, Seroquel, clonidine, amitriptyline, and she is on methylphenidate and I am uncertain how this impacts her bowels. You would think it would stimulate them but apparently that has not the case. I am referring her to [facility] for 2nd opinion since she has seen a physician here without resolution of her condition and I have worked with her for quite a long time and I just can not seem to get a handle on how to manage her overall burden. She is tolerating the reglan well at 10mg qid. This has helped the nausea a little bit will increase to 6x a day. She still does not move her bowels well. We have her on a large variety of medications w/o success - I would be reluctant to advise a partial colectomy w/o a second opinion. ROV 4 weeks. Medications: New rabeprazole (AcipHex) 20 mg PO BID 60 tabs 6RF K21.9 - Gastro-esophageal reflux disease without esophagitis, R11.2 - Nausea with vomiting, unspecified Changed From metoclopramide HCl PROVIDER AWARE OF INTERACTIONS AND IS MONITORING 10 mg PO QIDACHS 120 tabs 3RF To metoclopramide HCl (Reglan) PROVIDER AWARE OF INTERACTIONS AND IS MONITORING 10 mg PO .six times a day 180 tabs 6RF Refilled sennosides (senna) 17.2 mg (2 x 8.6 mg) PO BEDTIME 60 tabs 6RF constipation K59.04 - Chronic idiopathic constipation Discontinued omeprazole Discontinued Reason: Doctor's Order 40 mg PO DAILY 90 caps 0RF K21.9 - Gastro-esophageal reflux disease without esophagitis TODAY'S VISIT (She continues on her bisacodyl, dicyclomine, famotidine, Proctosol cream for hemorrhoids, Linzess 290 micro g, Creon 24,000, omeprazole 40 mg a day, MiraLax, Zofran as needed, senna, and simethicone. Medications that could be confounding our efforts towards bowel motility include Effexor, Seroquel, clonidine, amitriptyline, and she is on methylphenidate and I am uncertain how this impacts her bowels. You would think it would stimulate them but apparently that has not the case. am referring her to [facility] for 2nd opinion since she has seen a physician here without resolution of her condition and I have worked with her for quite a long time and I just can not seem to get a handle on how to manage her overall burden.) She does not see [facility] until 10/2024!! She feels that the Aciphex helped her GERD at least. She is taking the reglan 6 times a day w/o any adverse effect and she feels that it helps, The only medication I can think of that we have not tried is Zelnorm - this has been on and off of the market, but we will see if it is available and do a PA since she has very resistant constipation and is failing multiple other modalities. RoV 6 mos. PFSH Medical History Irritable bowel syndrome with constipation Anemia Ileus Tubular adenoma of colon History of pancreatitis Diverticulitis GERD (gastroesophageal reflux disease) Chronic idiopathic constipation Surgical History History of esophagogastroduodenoscopy (EGD) Hx of colonoscopy Family History Father No problems noted. Mother Diabetes Melanoma Family history of hypertension Family history of diabetes mellitus Social History Household Members: Family Housing: House Alcohol intake: never Patient Tobacco Use Status: Never used Tobacco Current occupational status: disabled Review of Systems Const Denies fatigue, Denies fever(s), Denies night sweats, Denies poor appetite and Reports weight loss Eyes Details: glasses Reports requires corrective lenses ENT Reports Normal hearing present, Denies dental pain, Denies dysphagia, Denies hearing loss, Denies mouth pain, Denies odynophagia, Denies throat swelling, Denies tongue swelling and Reports other (Dentition adequate) Card Reports no additional complaints Resp Reports no additional complaints GI Details: Denies abdominal pain, Denies melena, Reports bloating, Denies hematochezia, Reports constipation, Denies GI cramping, Denies dysphagia, Denies excessive flatus, Reports early satiety, Reports heartburn, Denies diarrhea, Reports nausea, Denies odynophagia, Reports vomiting and Denies hematemesis Skin/Breast Denies pruritus, Denies lesions, Denies rash and Denies jaundice Neuro Reports Normal hearing present and Denies Abnormal speech present Endo Denies fatigue Aller/Immun Denies throat swelling and Denies tongue swelling Physical Exam Vital Signs: Last Vital Signs Pulse 109 H 01/18/24 14:46 BP 108/69 01/18/24 14:46 BMI result Body Mass Index 24.7 Const General: cooperative, no acute distress, well developed and well groomed Nutritional Appearance: average body habitus and well nourished Orientation/consciousness: oriented to person, oriented to place and oriented to time Limitations: No language barrier HEENT Head: Yes normocephalic and Yes atraumatic Eyes General: appearance normal, both eyes and all related structures Pupils: Equal, round and reactive pupils present Neck Neck: Yes normal visual inspection and Yes no lymphadenopathy Thyroid: Thyroid normal Resp Effort & Inspection: normal respiratory effort and able to speak in complete sentences Auscultation: clear to auscultation bilaterally Cardio Rate: regular rate Rhythm: regular rhythm Heart sounds: Normal, physiologic split S2 sound present Peripheral pulses: radial pulses present and posterior tibial pulses present GI Inspection: No distended, No Abdominal panniculus present and Yes obesity Palpation (GI): Soft to palpation, nontender, no guarding, not rigid and No hepatosplenomegaly present Percussion: Yes normal to percussion Auscultation: normal bowel sounds Rectal Exam - Female: deferred Skin General skin exam: no rashes or lesions noted, turgor normal, skin not dry, no jaundice, No spider nevi and no striae Rashes: no rashes Nails: normal Neuro General: oriented to person, oriented to place and oriented to time Cranial nerves: Yes Equal, round and reactive pupils present and Yes Normal hearing present Speech: No Abnormal speech present Extrem General: Yes normal to inspection, No clubbing, No cyanosis and No edema Psych Appearance: grossly normal and well kempt Mental Status: mental status grossly normal Speech and movement: Normal speech and movement present Affect: normal affect Attitude: cooperative Thought process: Normal thought process present and not confabulating Thought content: Normal thought content present Insight: Good insight present (Psych) Judgement: Good judgement present (Psych) Assessment & Plan Assessment & Plan (1) Chronic idiopathic constipation: Code(s): K59.04 - Chronic idiopathic constipation Category: Medical (2) GERD (gastroesophageal reflux disease): Comment: This resolved after we got her bowels moving and she does not need any acid suppression therapy aeb Code(s): K21.9 - Gastro-esophageal reflux disease without esophagitis Category: Medical (3) Small bowel motility disorder: Code(s): K59.9 - Functional intestinal disorder, unspecified Category: Medical (4) Ileus: Code(s): K56.7 - Ileus, unspecified Category: Medical (5) Nausea and vomiting: Code(s): R11.2 - Nausea with vomiting, unspecified Category: Surgical Plan (She continues on her bisacodyl, dicyclomine, famotidine, Proctosol cream for hemorrhoids, Linzess 290 micro g, Creon 24,000, omeprazole 40 mg a day, MiraLax, Zofran as needed, senna, and simethicone. Medications that could be confounding our efforts towards bowel motility include Effexor, Seroquel, clonidine, amitriptyline, and she is on methylphenidate and I am uncertain how this impacts her bowels. You would think it would stimulate them but apparently that has not the case. am referring her to [facility] for 2nd opinion since she has seen a physician here without resolution of her condition and I have worked with her for quite a long time and I just can not seem to get a handle on how to manage her overall burden.) She does not see [facility] until 10/2024!! She feels that the Aciphex helped her GERD at least. She is taking the reglan 6 times a day w/o any adverse effect and she feels that it helps, The only medication I can think of that we have not tried is Zelnorm - this has been on and off of the market, but we will see if it is available and do a PA since she has very resistant constipation and is failing multiple other modalities. RoV 6 mos. Medications: New tegaserod hydrogen maleate (Zelnorm) 6 mg PO ONCE 30 tabs 6RF K59.04 - Chronic idiopathic constipation, K59.9 - Functional intestinal disorder, unspecified Coding Level of Care Code Est Pt Level 3 (34758) Diagnoses Chronic idiopathic constipation K59.04 GERD (gastroesophageal reflux disease) K21.9 Small bowel motility disorder K59.9 Ileus K56.7 Nausea and vomiting R11.2
[2024-01-18 14:46] VITALS: BP 108/69; PULSE 109; BMI 24.7
== END 2024-01-18 15:14 | disposition home or self-care (01) ==
PROVIDERS: PCP Internal Medicine Geriatric Medicine; Visit Provider Nurse Practitioner
DX: K59.04 Chronic idiopathic constipation (principal); K21.9 Gastro-esophageal reflux disease without esophagitis; K59.9 Functional intestinal disorder, unspecified; K56.7 Ileus, unspecified; R11.2 Nausea with vomiting, unspecified
CPT/HCPCS: 99213

== ENCOUNTER 2024-04-19 20:55 | Inpatient (IN) | payer OTHER, SELFPAY ==
[2024-04-19 21:03] VITALS: BP 125/79; BP 154/90; PULSE 95; PULSE 99; RESP 17; TEMP 36.8; O2SAT 97; O2SAT 99; BMI 28.2
--- NOTE | 2024-04-19 21:12 | MHC.EDTECH ---
Patient changed over to hospital clothing with security and this tech. Patient to bed 1
--- NOTE | 2024-04-19 21:13 | MHC.EDTECH ---
Patient Belongings list completed and belongings in POD LOCKER 5
--- NOTE | 2024-04-19 21:15 | ED.PSYCH ---
HPI - Psych General Chief Complaint: Psychiatric Symptoms Stated Complaint: hallucinations Time Seen by Provider: 04/19/24 21:05 Source: patient and EMS Mode of arrival: EMS Limitations: no limitations History of Present Illness ED Provider: Dr. Herlinda Ley HPI Narrative: Patient comes to the emergency room by ambulance. Patient coming from home, stating that she has been having visual and auditory hallucinations. Patient is known to have schizophrenia. Patient states that she is compliant with the medications, but did not take her meds today, states she had an appointment with her therapist. Patient states that she saw earlier today that the ceiling in her living room had fallen off, her children put paramedics that the ceiling is intact. Also, patient states that she is hearing multiple voices telling her to hurt herself. States some of the voices are very loud and some of them are barely audible. Patient states that she did not hurt herself in any way before coming to the hospital. Denies HI Related Data Home Medications ?Medication ?Instructions ?Recorded ?Confirmed acetaminophen 500 mg tablet 1,000 mg PO Q6H PRN pain 12/17/20 04/19/24 alprazolam 1 mg tablet 1 tab PO QID 12/12/21 04/19/24 blood sugar diagnostic (FreeStyle 12/13/21 12/13/21 Lite Strips) brimonidine 0.2 %-timolol 0.5 % 1 drp ophthalmic-Right BID 12/13/21 04/19/24 eye drops (Combigan) metformin 1,000 mg tablet 1 tab PO BID 12/13/21 04/19/24 methylphenidate HCl 10 mg tablet 1 tab PO DAILY 12/13/21 04/19/24 methylphenidate HCl 20 mg 2 tab PO DAILY 12/13/21 04/19/24 tablet,extended release prazosin 2 mg capsule 3 cap PO BEDTIME 12/13/21 04/19/24 venlafaxine 150 mg 1 cap PO QAM 12/13/21 04/19/24 capsule,extended release 24 hr zolpidem 10 mg tablet 1 tab PO BEDTIME 12/13/21 04/19/24 ondansetron HCl 4 mg tablet 4 mg PO TID PRN nausea/vomiting 01/01/22 04/19/24 magnesium chloride 70 mg 70 mg PO DAILY 03/04/22 04/19/24 (magnesium chloride) tablet,delayed release hydroxyzine pamoate 50 mg capsule 50 mg PO BEDTIME PRN insomnia 05/06/22 04/19/24 latanoprost 0.005 % eye drops 1 drp ophthalmic (eye) BID 11/10/22 04/19/24 quetiapine 400 mg tablet,extended 800 mg PO BEDTIME 11/10/22 04/19/24 release 24 hr clonidine HCl 0.1 mg tablet 0.1 mg PO QID PRN Agitation 03/25/23 04/19/24 amitriptyline 25 mg tablet 25 - 50 mg PO BEDTIME PRN insomnia 09/24/23 04/19/24 Previous Rx's ?Medication ?Instructions ?Recorded meclizine 25 mg tablet 25 mg PO TID PRN dizziness #20 tabs 04/07/23 bisacodyl 5 mg tablet,delayed 10 mg (2 x 5 mg) PO BEDTIME 30 09/24/23 release (Dulcolax (bisacodyl)) days #60 tabs dicyclomine 10 mg capsule 10 mg PO QID #360 caps 09/24/23 linaclotide 290 mcg capsule 290 mcg PO DAILY #30 caps 09/24/23 (Linzess) famotidine 40 mg tablet 40 mg PO BEDTIME #30 tabs 12/16/23 simethicone 180 mg capsule 180 mg PO QID #120 caps 12/16/23 rabeprazole 20 mg tablet,delayed 20 mg PO BID #60 tabs 12/21/23 release (AcipHex) sennosides 8.6 mg tablet (senna) 17.2 mg (2 x 8.6 mg) PO BEDTIME 12/21/23 constipation #60 tabs [id number] 1 cap PO QID #120 caps 02/22/24 24,000-76,000-120,000 unit capsule,delayed rel (Creon) prucalopride 2 mg tablet 2 mg PO DAILY #30 tabs 03/07/24 (Motegrity) polyethylene glycol 3350 17 17 g PO DAILY #238 grams 03/20/24 gram/dose oral powder Allergies Allergy/AdvReac Type Severity Reaction Status Date / Time No Known Allergies Allergy Verified 04/19/24 21:07 [No Known Allergies*] Review of Systems Review of Systems: Constitutional : No Weight loss, No Fever, No Chills, No Night Sweats, No Fatigue, No Malaise ENT/Mouth : No Hearing loss, No Ear Pain, No Nasal Congestion, No Sinus Pain, No Hoarseness, No sore throat, No Rhinorrhea, No Swallowing Difficulty Eyes: No Eye Pain, No Swelling, No Redness, No Foreign Body, No Discharge, No Vision Changes Cardiovascular : No Chest Pain, No SOB, No Dyspnea on Exertion, No Orthopnea, No Edema, No Palpitations Respiratory : No Cough, No Sputum, No Wheezing, No Smoke Exposure, No Dyspnea Gastrointestinal : No Nausea, No Vomiting, No Diarrhea, No Constipation, No abdominal Pain, No Hematochezia, No Melena Genitourinary : no irregular bleeding, No Dysuria, No Urinary Frequency, No Hematuria, No Urinary Incontinence, No Urgency, No Flank Pain, No Urinary Flow Changes, No Hesitancy Musculoskeletal : No joint pain, No Myalgias, No Joint Swelling Skin : No Skin Lesions, No rash Neuro : No Weakness, No Numbness, No Paresthesias, No Loss of Consciousness, No Dizziness, No Headache Psych : No Anxiety/Panic, No Depression, complaining of visual and auditory hallucinations Heme/Lymph: No Bruising, No Bleeding,No Lymphadenopathy Endocrine : No Polyuria, No Polydipsia, No Temperature Intolerance FORMERLY [facility], [facility]–1983 Past Medical History Medical History (Updated 04/19/24 @ 21:24 by Herlinda Ley MD) Schizophrenia Irritable bowel syndrome with constipation Anemia Ileus Tubular adenoma of colon History of pancreatitis Diverticulitis GERD (gastroesophageal reflux disease) Chronic idiopathic constipation Surgical History History of esophagogastroduodenoscopy (EGD) Hx of colonoscopy Family History Family History Father No problems noted. Mother Diabetes Melanoma Family history of hypertension Family history of diabetes mellitus Social History Social History Household Members: Family Housing: House Alcohol intake: never Patient Tobacco Use Status: Never used Tobacco Smoked in Last 30 Days: No Use of substances other than those prescribed or required for medical reasons: No Advance Directives: No Advance Directives Information Provided: No Do you have a plan to hurt others: No Plan Current occupational status: disabled Physical Exam Vital Signs: Vital Signs: Last Vital Signs Temp 98.7 F 04/20/24 00:57 Pulse 89 04/20/24 00:57 Resp 16 04/20/24 00:57 BP 135/82 04/20/24 01:48 Pulse Ox 99 04/20/24 00:57 O2 Del Method Room Air 04/20/24 00:57 BMI result Body Mass Index 28.2 Const: Other: Appearance: Alert. Oriented X3. No acute distress. Eyes: Pupils equal, round and reactive to light. ENT: Pharynx normal. Neck: Normal inspection. Neck supple. No lymph nodes noted. No crepitus CVS: Normal heart rate and rhythm. Pulses normal. Normal S1 and S2 Respiratory: No respiratory distress. Breath sounds normal. No Wheezing. No rales Abdomen: Soft and nontender. No rigidity. No distention. Skin: Skin warm and dry. Normal skin color. Normal skin turgor. Extremities: No lower extremity edema. No Lacerations. No Rash Neuro: Oriented X 3. No motor deficit. No sensory deficit. Moving all extremities. No slurred speech. CN 2 through 12 grossly intact Psych: calm, cooperative, admits that she is having both auditory and visual hallucinations Course Course Course Narrative: -all of patient's labs are pending -patient is not SI HI, calm and cooperative, section 12 not indicated at this time -care team consult pending Medications Administered Generic Name Dose Route Start Last Admin Trade Name Freq PRN Reason Stop Dose Admin Alprazolam 1 mg 04/20/24 02:50 04/20/24 02:59 Alprazolam 0.5 Mg Tablet PO 1 mg QID PRN Administration Anxiety Bisacodyl 10 mg 04/20/24 00:15 04/20/24 01:35 Bisacodyl 5 Mg Tablet.Dr PO 10 mg BEDTIME ARETHA Administration Dicyclomine HCl 10 mg 04/20/24 00:15 04/20/24 01:35 Dicyclomine Hcl 10 Mg Capsule PO 10 mg QID ARETHA Administration Famotidine 20 mg 04/20/24 00:15 04/20/24 01:35 Famotidine 20 Mg Tablet PO 20 mg BEDTIME ARETHA Administration Latanoprost 1 drop 04/20/24 00:15 04/20/24 01:35 Latanoprost 0.005 % Ophth [place] 2.5 Ml Drops EYE-BOTH Not Given BID ARETHA Prazosin HCl 6 mg 04/20/24 00:15 04/20/24 01:48 Prazosin Hcl 1 Mg Capsule PO 6 mg BEDTIME ARETHA Administration Protocol Zolpidem Tartrate 10 mg 04/20/24 00:15 04/20/24 01:35 Zolpidem Tartrate 5 Mg Tablet PO 10 mg BEDTIME ARETHA Administration Discontinued Medications Generic Name Dose Route Start Last Admin Trade Name Jer PRN Reason Stop Dose Admin Alprazolam 1 mg 04/20/24 00:15 04/20/24 01:40 Alprazolam 0.5 Mg Tablet PO Not Given QID ARETHA Lipase/Protease/Amylase 1 cap 04/20/24 00:15 04/20/24 01:48 Lipase/Prot/Amylase 24/76/120k 1 Cap Capsule.Dr BURROWS Not Given QID ARETHA Medical Decision Making Medical Decision Making MDM Narrative: -my interpretation of labs: At baseline hematology and chemistry, ETOH negative -urinalysis and urine toxicology pending -05:50: Patient's urine toxicology is not available yet. Care team recommendations: Follow-up in the morning. However, they believe that patient may need inpatient level of care but will be determined later today. At this time, patient is on a Section 12 Differential Diagnosis Differential Diagnoses: The differential diagnosis associated with the presentation includes (Visual hallucinations, auditory hallucinations, schizophrenia, delusions) Admission/Observation Consideration of admission/observation: Escalation of care including admission/observation considered (Patient waiting for the care team evaluation. Patient will possibly need inpatient level of care) Lab Data 04/19/24 21:23 04/19/24 21:23 Labs: Lab Results 04/19/24 04/20/24 Range/Units 21:23 00:53 WBC 6.7 (4.8-10.8) X10*3/uL RBC 4.12 L D (4.20-5.50) X10*6/uL Hgb 11.4 L (12.0-16.0) g/dl Hct 34.1 L (37.0-47.0) % MCV 82.8 (80.0-98.0) fL MCH 27.7 (27.0-33.0) pg MCHC 33.4 (31.0-35.0) g/dl RDW 13.5 (11.0-16.0) % Plt Count 300 (160-400) X10*3/uL MPV 10.6 (9.4-12.3) fL Immature Gran % (Auto) 0.4 (0.0-0.4) % Neut % (Auto) 55.7 (45-73) % Lymph % (Auto) 34.2 (20-40) % [place] % (Auto) 7.8 (2-11) % Eos % (Auto) 1.2 (0-4) % Baso % (Auto) 0.7 (0-2) % Lymph # (Auto) 2.3 (1.2-4.9) X10*3/uL [place] # (Auto) 0.5 (0.1-1.2) X10*3/uL Eos # (Auto) 0.1 (0.0-0.4) X10*3/uL Baso # (Auto) 0.1 (0.0-0.2) X10*3/uL Abs Immat Gran (auto) 0.03 (0.00-0.03) X10*3/uL Absolute Neuts (auto) 3.7 (2.0-8.3) x10*3/uL Absolute Nucleated RBC 0.000 (0.0-0.012) X10*3/uL Nucleated RBC % (auto) 0.0 (0.0-0.2) /100WBC Sodium 140 (135-145) mmol/L Potassium 3.6 (3.3-5.1) mmol/L Chloride 105 (96-108) mmol/L Carbon Dioxide 21 L (22-29) mmol/L Anion Gap 18 (12-20) BUN 17 H (9-16) mg/dL Creatinine 1.28 (0.5-1.4) mg/dL Estim Creat Clear Calc 39.5 Estimated GFR 42 POC Glucose 180 H (60-115) mg/dL Random Glucose 186 H (60-115) mg/dL Calcium 9.4 (8.4-10.2) mg/dL Total Bilirubin 0.8 (0.0-1.0) mg/dL AST 17 (5-31) U/L ALT 21 (0-31) U/L Alkaline Phosphatase 113 (39-117) U/L Total Protein 7.0 (6.5-8.0) g/dL Albumin 4.4 (3.5-5.0) g/dL Ethyl Alcohol < 10 mg/dL Discharge Plan Discharge Clinical Impression: Schizophrenia Patient Disposition: Still a Patient Prescriptions: No Action simethicone 180 mg capsule 180 mg PO QID Qty: 120 2RF famotidine 40 mg tablet 40 mg PO BEDTIME Qty: 30 6RF Creon 24,000-76,000 -120,000 unit capsule,delayed release(DR/EC) 1 cap PO QID Qty: 120 2RF Motegrity 2 mg tablet 2 mg PO DAILY Qty: 30 0RF polyethylene glycol 3350 17 gram/dose powder 17 g PO DAILY Qty: 238 0RF alprazolam 1 mg tablet 1 tab PO QID methylphenidate HCl 10 mg tablet 1 tab PO DAILY venlafaxine 150 mg capsule,extended release 24hr 1 cap PO QAM (DME) FreeStyle Lite Strips Strip Not Applicable DAILY metformin 1,000 mg tablet 1 tab PO BID zolpidem 10 mg tablet 1 tab PO BEDTIME prazosin 2 mg capsule 3 cap PO BEDTIME brimonidine-timolol [Combigan] 0.2-0.5 % drops 1 drp ophthalmic-Right BID methylphenidate HCl 20 mg tablet extended release 2 tab PO DAILY quetiapine 400 mg tablet extended release 24 hr 800 mg PO BEDTIME meclizine 25 mg tablet 25 mg PO TID PRN (Reason: dizziness) Qty: 20 0RF acetaminophen 500 mg tablet 1,000 mg PO Q6H PRN (Reason: pain) latanoprost 0.005 % drops 1 drp ophthalmic (eye) BID hydroxyzine pamoate 50 mg capsule 50 mg PO BEDTIME PRN (Reason: insomnia) ondansetron HCl 4 mg tablet 4 mg PO TID PRN (Reason: nausea/vomiting) magnesium chloride 70 mg tablet,delayed release (DR/EC) 70 mg PO DAILY clonidine HCl 0.1 mg tablet 0.1 mg PO QID PRN (Reason: Agitation) amitriptyline 25 mg tablet 25 - 50 mg PO BEDTIME PRN (Reason: insomnia) Linzess 290 mcg capsule 290 mcg PO DAILY Qty: 30 6RF dicyclomine 10 mg capsule 10 mg PO QID Qty: 360 0RF bisacodyl [Dulcolax (bisacodyl)] 5 mg tablet,delayed release (DR/EC) 10 mg PO BEDTIME 30 Days Qty: 60 6RF sennosides [senna] 8.6 mg tablet 17.2 mg PO BEDTIME Qty: 60 6RF rabeprazole [AcipHex] 20 mg tablet,delayed release (DR/EC) 20 mg PO BID Qty: 60 6RF Interventions: [place]-Suicide Risk Severity Scale Last Done: 04/20/24 00:14 Print Language: American
[2024-04-19 21:29] LABS: MANUAL DIFF FLAG NO
[2024-04-19 21:32] LABS: Basophils Absolute Auto 0.1 X10*3/uL (0.0-0.2); Basophils Percent Auto 0.7 % (0-2); Eosinophils Absolute Auto 0.1 X10*3/uL (0.0-0.4); Eosinophils Percent Auto 1.2 % (0-4); Hematocrit 34.1 % (37.0-47.0); Hemoglobin 11.4 g/dl (12.0-16.0); Imm Gran Abs Auto 0.03 X10*3/uL (0.00-0.03); Imm Gran Pct Auto 0.4 % (0.0-0.4); Lymphocytes Absolute Auto 2.3 X10*3/uL (1.2-4.9); Lymphocytes Percent Auto 34.2 % (20-40); Mean Corpuscular HGB Conc 33.4 g/dl (31.0-35.0); Mean Corpuscular Hemoglobin 27.7 pg (27.0-33.0); Mean Corpuscular Volume 82.8 fL (80.0-98.0); Mean Platelet Volume 10.6 fL (9.4-12.3); Monocytes Absolute Auto 0.5 X10*3/uL (0.1-1.2); Monocytes Percent Auto 7.8 % (2-11); Neutrophils Absolute Auto 3.7 x10*3/uL (2.0-8.3); Neutrophils Percent Auto 55.7 % (45-73); Platelet Count 300 X10*3/uL (160-400); Red Blood Count 4.12 X10*6/uL (4.20-5.50); Red Cell Distribution Width 13.5 % (11.0-16.0); White Blood Count 6.7 X10*3/uL (4.8-10.8)
[2024-04-19 21:41] LABS: Ethanol < 10 mg/dL
[2024-04-19 21:44] LABS: Alanine Aminotransferase 21 U/L (0-31); Albumin Level 4.4 g/dL (3.5-5.0); Alkaline Phosphatase 113 U/L (39-117); Anion Gap 18 (12-20); Aspartate Amino Transferase 17 U/L (5-31); Bilirubin Total 0.8 mg/dL (0.0-1.0); Blood Urea Nitrogen 17 mg/dL (9-16); Calcium 9.4 mg/dL (8.4-10.2); Carbon Dioxide 21 mmol/L (22-29); Chloride 105 mmol/L (96-108); Creatinine Clr Calc Pharmacy 39.5; Estimated Glomerular Filt Rate 42; Glucose Random 186 mg/dL (60-115); Potassium 3.6 mmol/L (3.3-5.1); Sodium 140 mmol/L (135-145)
[2024-04-20 00:57] VITALS: BP 135/82; PULSE 89; RESP 16; TEMP 37.1; O2SAT 99
[2024-04-20 01:00] LABS: Glucose, Whole Blood 180 mg/dL (60-115)
[2024-04-20] MEDS: Zolpidem Tartrate 5 MG TABLET 10 MG PO ×2 (01:35→20:13)
[2024-04-20] MEDS: bisacodyL 5 MG TABLET.DR 10 MG PO ×2 (01:35→20:13)
[2024-04-20] MEDS: Dicyclomine HCl 10 MG CAPSULE PO ×5 (01:35→20:14)
[2024-04-20] MEDS: Famotidine 20 MG TABLET PO ×2 (01:35→20:12)
[2024-04-20 01:48] VITALS: BP 135/82
[2024-04-20] MEDS: Prazosin HCL 1 MG CAPSULE 6 MG PO ×2 (01:48→20:12)
--- NOTE | 2024-04-20 01:51 | PC.NURSE ---
PT biba from home with complaints of hallucinations and vague si. PT endorsing AH/VH sts that voices are just there and are not telling her to do anything, she is seeing insects on the mill[place] and millard are caving in. Phas a hsitory of schizophrenia, hallucination and self-harm. Med reconciliation completed to the best of this writers ability- pt knowledgeable of meds and timing and reasons. Medications administered as per MAR. Care team currently at bedside. Plan of care ongoing
--- NOTE | 2024-04-20 02:40 | PC.NURSE ---
PT disoriented, engaging in self-dialogue- redirections somewhat successful. Care team assessed pt with plan for inpatient bed search on a section 12.
[2024-04-20] MEDS: ALPRAZolam 0.5 MG TABLET 1 MG PO ×2 (02:59→20:25)
--- NOTE | 2024-04-20 03:03 | PC.NURSE ---
d/t pt increase in anxiety and disorientation t/w administered prn xanax. PT now resting quietly on the floor in her room.
--- NOTE | 2024-04-20 07:08 | PC.NURSE ---
Assumed care of patient at 0645, patient appears to be sleeping, respirations even and unlabored, no apparent distress noted. Continue plan of care for inpatient bedsearch
[2024-04-20] MEDS: Omeprazole 20 MG CAPSULE.DR PO ×2 (08:43→20:13)
[2024-04-20] MEDS: Methylphenidate HCl 10 MG TABLET PO (08:43)
[2024-04-20] MEDS: Venlafaxine HCl ER 150 MG CAP.ER.24H PO (08:43)
[2024-04-20] MEDS: Simethicone 80 MG TAB.CHEW 160 MG PO ×4 (08:43→20:13)
[2024-04-20] MEDS: QUEtiapine Fumarate 400 MG TABLET PO ×2 (08:43→20:13)
[2024-04-20] MEDS: metFORMIN HCl 1,000 MG TABLET 1000 MG PO (08:43)
[2024-04-20 08:47] VITALS: BP 104/60; PULSE 111; RESP 20; TEMP 36.1; O2SAT 99
[2024-04-20] MEDS: Lipase/Prot/Amylase 24/76/120K 1 CAP CAPSULE.DR PO ×2 (09:58→18:31)
--- NOTE | 2024-04-20 10:35 | PC.NURSE ---
pt provided urine sample, now speaking with care team
[2024-04-20 10:40] LABS: Appearance Urine Clear; Color Urine Dark Yellow; Glucose Urine UA Negative (Negative); Leukocyte Esterase Urine Moderate (2+) (Negative); Nitrite Urine Positive (Negative); PH 5.5 (5.0-9.0); UMIC TRIGGER UACC YES; Urine Blood Negative (Negative); Urine Ketones 15 mg/dL (Negative); Urine Protein Trace mg/dL (Neg-Trace)
[2024-04-20 10:52] LABS: Amphetamine Screen Urine Not Detected (Not Detect); Barbiturates, Urine Not Detected (Not Detect); Benzodiazepines Screen Urine POSITIVE (Not Detect); Buprenorphine Scr Not Detected (Not Detect); Cannabinoid Screen Urine Not Detected (Not Detect); Cocaine Screen Urine Not Detected (Not Detect); Fentanyl, urine Not Detected (Not Detect); Methadone Screen, Urine Not Detected (Not Detect); Opiate Screen Urine Not Detected (Not Detect); Oxycodone Screen Urine Not Detected (Not Detect); Phencyclidine Screen Urine Not Detected (Not Detect)
[2024-04-20 11:32] LABS: Bacteria Urine Trace (None Seen); Hyaline Casts Urine 0-2 /LPF (0-2); RBC Urine 0-2 /HPF (0-2); UACC Culture Trigger YES
[2024-04-20 14:27] VITALS: RESP 14
[2024-04-20 17:07] VITALS: BP 100/67; PULSE 91; RESP 16; TEMP 36.6; O2SAT 98
[2024-04-20] MEDS: metFORMIN HCl 500 MG TABLET PO (17:35)
--- NOTE | 2024-04-20 18:40 | PC.NURSE ---
Pt noted to have an uneventful day, sleeping the majority of it. Pt is arousable to name, pleasant with staff. Offering no complaints or concerns. Pt is otherwise in no apparent distress, she is aware of the plan of care for inpatient bedsearch
[2024-04-20 20:12] VITALS: BP 100/67
--- NOTE | 2024-04-20 21:27 | PC.NURSE ---
late entry patient reports she prefers to take3 her seroquel all at night (800mg) t/w told client i would document in the record and asked client to tell provider once she gets to a destination unit, that it could perhaps be changed.
--- NOTE | 2024-04-21 | ECG_ITS ---
Test Reason : PSYCH Blood Pressure : / mmHG Vent. Rate : 096 BPM Atrial Rate : 096 BPM P-R Int : 178 ms QRS Dur : 078 ms QT Int : 360 ms P-R-T Axes : 058 099 081 degrees QTc Int : 454 ms Normal sinus rhythm Rightward axis Nonspecific T wave abnormality Abnormal ECG When compared with ECG of 12-DEC-2021 20:06, No significant change was found Referred By: Generic ED Physician Electronically Signed By:LENNOX MCCARTNEY
[2024-04-21 01:44] LABS: Glucose, Whole Blood 135 mg/dL (60-115)
--- NOTE | 2024-04-21 01:46 | PC.NURSE ---
Took report from off-going RN at 2300 hrs. Pt is a 68 y/o female who presented to the ED from home via EMS with complaints of hallucinations X 1 day and SI without a plan. Pt is arousable with verbal stimuli, calm and cooperative, appropriate with staff. Has been seen by care team, is on a section 12, and a bedsearch is ongoing. Will continue to monitor.
[2024-04-21 01:53] VITALS: BP 109/67; PULSE 106; RESP 16; TEMP 36.5; O2SAT 97
--- NOTE | 2024-04-21 05:57 | PC.NURSE ---
Pt has slept most of the night, appeared comfortable, changes positions independently as desired. Skin is W/P/D with no acute distress noted. Arousable with stimuli. Pt is independent with toileting, walks with a steady gait. Calm and cooperative, appropriate with staff. Verbalizes needs. Safety checks are ongoing every 15 min, no issues. Bed search is ongoing. Will continue to monitor.
[2024-04-21 06:24] VITALS: BP 94/58; PULSE 113; RESP 16; TEMP 37; O2SAT 97
[2024-04-21 06:34] LABS: Glucose, Whole Blood 159 mg/dL (60-115)
--- NOTE | 2024-04-21 07:13 | PC.NURSE ---
Resumed care of pt at 0700. Pt resting in bed quietly, respirations even and unlabored, no increased wob/sob noted. Continue plan of care for inpatient bed search.
[2024-04-21] MEDS: metFORMIN HCl 500 MG TABLET PO ×2 (07:37→16:34)
[2024-04-21] MEDS: Lipase/Prot/Amylase 24/76/120K 1 CAP CAPSULE.DR PO ×3 (07:37→16:34)
[2024-04-21 07:41] VITALS: BP 107/67
--- NOTE | 2024-04-21 07:42 | PC.NURSE ---
Pt up in bed eating breakfast, pt BP soft 94/58 this morning. Most recent BP 107/67. Per MD Wallace, abx to be added for UTI. All needs met at this time, plan of care ongoing.
[2024-04-21] MEDS: QUEtiapine Fumarate 400 MG TABLET PO ×2 (09:15→20:31)
[2024-04-21] MEDS: Venlafaxine HCl ER 150 MG CAP.ER.24H PO (09:15)
[2024-04-21] MEDS: cefuroxime axetiL 250 MG TABLET PO ×2 (09:15→20:31)
[2024-04-21] MEDS: Dicyclomine HCl 10 MG CAPSULE PO ×4 (09:15→20:31)
[2024-04-21] MEDS: Simethicone 80 MG TAB.CHEW 160 MG PO ×4 (09:15→20:32)
[2024-04-21] MEDS: Methylphenidate HCl 10 MG TABLET PO (09:15)
[2024-04-21] MEDS: polyethylene glycoL 3350 17 GM POWD.PACK PO (09:15)
[2024-04-21] MEDS: Omeprazole 20 MG CAPSULE.DR PO ×2 (09:15→20:32)
[2024-04-21] MEDS: Latanoprost 0.005 % Ophth Sol 2.5 ML DROPS 1 DROP EYE-BOTH (10:22)
--- NOTE | 2024-04-21 11:28 | MHC.CARE ---
[employer] called and spoke with Beti at [facility]=Auth [id number] 5 days valid through 04/25. Clinical evaluation faxed successfully to [facility] at Beti's request.
[2024-04-21 13:12] LABS: Glucose, Whole Blood 143 mg/dL (60-115)
[2024-04-21 14:25] VITALS: BP 134/88; PULSE 114; RESP 18; TEMP 36.6; O2SAT 97
--- NOTE | 2024-04-21 15:21 | MHC.CLN ---
NUTRITION CONSULT FOR UNINTENTIONAL WEIGHT LOSS. REVIEW OF WEIGHT HX SHOWS WEIGHT OVERALL STABLE FROM 05/01 TO 01/30. WEIGHT GAIN X MOST RECENT THREE MONTHS +14%. RD TO FOLLOW UP FOR INTAKE AND WEIGHTS.
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
[2024-04-21] MEDS: Flu Vacc TS2024-25(6mos up)/PF 0.5 ML SYRINGE IM (16:35)
--- NOTE | 2024-04-21 18:41 | PC.ADMIT ---
Pt. arrived on unit 14:18 via WC accompanied by this RN and security. Skin assmt. and contraband search performed with no issues noted. Pt. A & O X 4. Reports depression 6-02/15. Denies anxiety, SI, HI or perceptual disturbances at this time. Pt. with long standing schizoaffective disorder, depressive type has been experiencing an exacerbation of sx. including AH and VH. She has a hx. of command hallucinations telling her to hurt herself, and has a hx. of cutting herself, but denies experiencing that at this time. Pt. ambulatory without assistive devices. She has good balance and steady gait. She receives VNA and CCA services at home and reports she needs help dressing at times. Co morbidities include IBS with constipation, DM, pancreatic dysfunction, and GERD. Daughter updated on pt's admission and dropped off medication not on hospital formulary (Motegrity and Linzess). She reports unintended weight loss and dietary consult was placed. She consented to and received seasonal influenza vaccine.
[2024-04-21 20:00] VITALS: BP 143/76; PULSE 105; RESP 16; TEMP 36.7; O2SAT 98
[2024-04-21] MEDS: Acetaminophen 325 MG TABLET 975 MG PO (20:29)
[2024-04-21] MEDS: traZODone HCL 50 MG TABLET PO ×2 (20:32→21:36)
[2024-04-21] MEDS: Famotidine 20 MG TABLET PO (20:33)
[2024-04-21] MEDS: timoloL maleate 0.5 % Oph Sol 5 ML DRBTL 1 DROP EYE-RIGHT (20:34)
[2024-04-21] MEDS: Brimonidine Tartrate 0.2% Oph 5 ML BOTTLE 1 DROP EYE-RIGHT (20:35)
[2024-04-21] MEDS: ALPRAZolam 0.5 MG TABLET 1 MG PO (21:20)
[2024-04-21 21:26] VITALS: BP 143/76
[2024-04-21] MEDS: Prazosin HCL 1 MG CAPSULE 6 MG PO (21:26)
[2024-04-21 21:57] LABS: Glucose, Whole Blood 119 mg/dL (60-115)
[2024-04-21] MEDS: Zolpidem Tartrate 5 MG TABLET PO (22:22)
[2024-04-22 06:44] LABS: Glucose, Whole Blood 112 mg/dL (60-115)
[2024-04-22 08:09] LABS: Alanine Aminotransferase 19 U/L (0-31); Albumin Level 3.8 g/dL (3.5-5.0); Alkaline Phosphatase 90 U/L (39-117); Anion Gap 12 (12-20); Aspartate Amino Transferase 15 U/L (5-31); Bilirubin Total 0.5 mg/dL (0.0-1.0); Blood Urea Nitrogen 17 mg/dL (9-16); Calcium 9.2 mg/dL (8.4-10.2); Carbon Dioxide 26 mmol/L (22-29); Chloride 108 mmol/L (96-108); Cholesterol 170 mg/dL (<200); Creatinine Clr Calc Pharmacy 47.3; Estimated Glomerular Filt Rate 51; Glucose Fasting 116 mg/dL (60-99); HDL Cholesterol 57 mg/dL (>40); LDL Cholesterol Calculated 89 mg/dL (<100); Magnesium 1.7 mg/dL (1.6-2.6); Potassium 3.7 mmol/L (3.3-5.1); Sodium 142 mmol/L (135-145); Total Protein 5.9 g/dL (6.5-8.0); Triglycerides 123 mg/dL (<150)
[2024-04-22 08:18] LABS: Estimated Average Glucose 137 mg/dL; Hemoglobin A1C 119.1169 umol/L; Hemoglobin A1c % 6.4 % (<6.0)
[2024-04-22 08:26] LABS: Thyroid Stimulating Hormone 0.22 uIU/mL (0.32-4.0)
[2024-04-22 08:40] LABS: Folate 13.6 ng/mL (> or = 4.0); Vitamin B12 305 pg/mL (200-900)
--- NOTE | 2024-04-22 09:25 | P.PNPSI_ITS ---
Subjective Subjective Date of Service: 04/22/24 Reason For Visit: hallucinations Subjective Notes: Conditional Voluntary Interim History: Pt reports she slept through the night. She denies hearing voices, or seeing things that other can't see. She denies SI/HI. No overt delusional content. Review of Systems Review of Systems Pt denies chest pain No SOB No constipation currently- but hx of severe GI issues with constipation. Mental Status Exam Mental Status Exam Narrative: Appearance: wearing hospital gown, fair hygiene, in NAD Behavior: cooperative Psychomotor: no agitation or retardation noted Speech: clear, normal rate/rhythm/volume, spontaneous TP: linear TC: feeling better Mood: better Affect: congruent SI: none HI; none VH/AH: not today Delusions: no overt delusional content noted or reported Insight/judgment: fair x 2 memory/cog: alert, oriented x 4. pending MOCA Diagnostics Vital Signs (24Hr): Vital Signs - 24 hr 04/21/24 14:25 04/21/24 20:00 04/21/24 21:26 Temperature 98 F 98.1 F Pulse Rate 114 H 105 H Respiratory Rate 18 16 Blood Pressure 134/88 143/76 H 143/76 H Pulse Oximetry 97 98 Oxygen Delivery Method Room Air Room Air BMI result Body Mass Index 28.2 Labs 04/19/24 21:23 04/22/24 07:32 Labs: Laboratory Results - last 48 hr 04/20/24 04/21/24 04/21/24 10:30 01:37 06:29 Sodium Potassium Chloride Carbon Dioxide Anion Gap BUN Creatinine Estim Creat Clear Calc Estimated GFR POC Glucose 135 H 159 H Fasting Glucose Estimat Average Glucose Hemoglobin A1c % Calcium Magnesium Total Bilirubin AST ALT Alkaline Phosphatase Total Protein Albumin Triglycerides Cholesterol LDL Cholesterol, Calc HDL Cholesterol Vitamin B12 Folate TSH Urine Color Dark Yellow Urine Appearance Clear Urine pH 5.5 Ur Specific [place] 1.020 Urine Protein Trace Urine Glucose (UA) Negative Urine Ketones 15 Urine Blood Negative Urine Nitrite Positive H Ur Leukocyte Esterase Moderate (2+) H Urine RBC 0-2 Urine WBC 11-20 H Ur Squamous Epith Cells 11-20 Urine Bacteria Trace Hyaline Casts 0-2 Urine Opiates Screen Not Detected Ur Buprenorphine Scrn Not Detected Ur Oxycodone Screen Not Detected Urine Methadone Screen Not Detected Urine Fentanyl Screen Not Detected Ur Barbiturates Screen Not Detected Ur Phencyclidine Scrn Not Detected Ur Amphetamines Screen Not Detected U Benzodiazepines Scrn POSITIVE H Urine Cocaine Screen Not Detected U Marijuana (THC) Screen Not Detected 04/21/24 04/21/24 04/22/24 13:07 21:35 06:38 Sodium Potassium Chloride Carbon Dioxide Anion Gap BUN Creatinine Estim Creat Clear Calc Estimated GFR POC Glucose 143 H 119 H 112 Fasting Glucose Estimat Average Glucose Hemoglobin A1c % Calcium Magnesium Total Bilirubin AST ALT Alkaline Phosphatase Total Protein Albumin Triglycerides Cholesterol LDL Cholesterol, Calc HDL Cholesterol Vitamin B12 Folate TSH Urine Color Urine Appearance Urine pH Ur Specific [place] Urine Protein Urine Glucose (UA) Urine Ketones Urine Blood Urine Nitrite Ur Leukocyte Esterase Urine RBC Urine WBC Ur Squamous Epith Cells Urine Bacteria Hyaline Casts Urine Opiates Screen Ur Buprenorphine Scrn Ur Oxycodone Screen Urine Methadone Screen Urine Fentanyl Screen Ur Barbiturates Screen Ur Phencyclidine Scrn Ur Amphetamines Screen U Benzodiazepines Scrn Urine Cocaine Screen U Marijuana (THC) Screen 04/22/24 07:32 Sodium 142 Potassium 3.7 Chloride 108 Carbon Dioxide 26 Anion Gap 12 BUN 17 H Creatinine 1.07 Estim Creat Clear Calc 47.3 Estimated GFR 51 POC Glucose Fasting Glucose 116 H Estimat Average Glucose 137 Hemoglobin A1c % 6.4 H Calcium 9.2 Magnesium 1.7 Total Bilirubin 0.5 AST 15 ALT 19 Alkaline Phosphatase 90 Total Protein 5.9 L Albumin 3.8 Triglycerides 123 Cholesterol 170 LDL Cholesterol, Calc 89 HDL Cholesterol 57 Vitamin B12 305 Folate 13.6 TSH 0.22 L Urine Color Urine Appearance Urine pH Ur Specific [place] Urine Protein Urine Glucose (UA) Urine Ketones Urine Blood Urine Nitrite Ur Leukocyte Esterase Urine RBC Urine WBC Ur Squamous Epith Cells Urine Bacteria Hyaline Casts Urine Opiates Screen Ur Buprenorphine Scrn Ur Oxycodone Screen Urine Methadone Screen Urine Fentanyl Screen Ur Barbiturates Screen Ur Phencyclidine Scrn Ur Amphetamines Screen U Benzodiazepines Scrn Urine Cocaine Screen U Marijuana (THC) Screen Medications Medications Current Medications Acetaminophen (Acetaminophen 325 Mg Tablet) 975 mg PO Q6H PRN PRN Reason: pain Last Admin: 04/21/24 20:29 Dose: 975 mg Al Hydroxide/Mg Hydroxide (Magnesium Hydrox/Alum Hydrox 30 Ml Oral.Susp) 30 ml PO Q6H PRN PRN Reason: Heartburn/Nausea Alprazolam (Alprazolam 0.5 Mg Tablet) 1 mg PO QID PRN PRN Reason: Anxiety Last Admin: 04/21/24 21:20 Dose: 1 mg Lipase/Protease/Amylase (Lipase/Prot/Amylase 24/76/120k 1 Cap Capsule.) 1 cap PO TIDWM [facility] Last Admin: 04/21/24 16:34 Dose: 1 cap Bisacodyl (Bisacodyl 5 Mg Tablet.) 10 mg PO BEDTIME [facility] Last Admin: 04/21/24 22:16 Dose: Not Given Brimonidine Tartrate (Brimonidine Tartrate 0.2% Oph 5 Ml Bottle) 1 drop EYE- RIGHT BID [facility] Last Admin: 04/21/24 20:35 Dose: 1 drop Cefuroxime Axetil (Cefuroxime Axetil 250 Mg Tablet) 250 mg PO BID [facility] Stop: 04/28/24 08:59 Last Admin: 04/21/24 20:31 Dose: 250 mg Dicyclomine HCl (Dicyclomine Hcl 10 Mg Capsule) 10 mg PO QID [facility] Last Admin: 04/21/24 20:31 Dose: 10 mg Famotidine (Famotidine 20 Mg Tablet) 20 mg PO BEDTIME [facility] Last Admin: 04/21/24 20:33 Dose: 20 mg Latanoprost (Latanoprost 0.005 % Ophth [place] 2.5 Ml Drops) 1 drop EYE-BOTH BID [facility] Last Admin: 04/21/24 22:17 Dose: Not Given Magnesium Hydroxide (Milk Of Magnesia 30 Ml Oral.Susp) 30 ml PO DAILY PRN PRN Reason: Constipation Metformin HCl (Metformin Hcl 500 Mg Tablet) 500 mg PO BIDWM [facility] Last Admin: 04/21/24 16:34 Dose: 500 mg Pt Own (Prucalopride [Motegrity] 2 Mg Tablet) 2 mg PO DAILY [facility] Pt Own (Linaclotide [Linzess] 290 Mcg Capsule) 290 mcg PO DAILY [facility] Omeprazole (Omeprazole 20 Mg Capsule.) 20 mg PO BID [facility] Last Admin: 04/21/24 20:32 Dose: 20 mg Polyethylene Glycol (Polyethylene Glycol 3350 17 Gm Powd.Pack) 17 gm PO DAILY [facility] Last Admin: 04/21/24 09:15 Dose: 17 gm Prazosin HCl (Prazosin Hcl 1 Mg Capsule) 6 mg PO BEDTIME [facility]; Protocol Last Admin: 04/21/24 21:26 Dose: 6 mg Quetiapine Fumarate (Quetiapine Fumarate 400 Mg Tablet) 400 mg PO BID [facility] Last Admin: 04/21/24 20:31 Dose: 400 mg Simethicone (Simethicone 80 Mg Tab.Chew) 160 mg PO QID [facility] Last Admin: 04/21/24 20:32 Dose: 160 mg Timolol Maleate (Timolol Maleate 0.5 % Oph [place] 5 Ml Drbtl) 1 drop EYE-RIGHT BID [facility] Last Admin: 04/21/24 20:34 Dose: 1 drop Trazodone HCl (Trazodone Hcl 50 Mg Tablet) 50 mg PO BEDTIME MRX1 PRN PRN Reason: Insomnia Last Admin: 04/21/24 21:36 Dose: 50 mg Venlafaxine HCl (Venlafaxine Hcl Er 150 Mg Cap.Er.24h) 150 mg PO DAILY [facility] Last Admin: 04/21/24 09:15 Dose: 150 mg Allergies Allergies Allergy/AdvReac Type Severity Reaction Status Date / Time No Known Allergies Allergy Verified 04/19/24 21:07 [No Known Allergies*] Assessment & Plan Assessment & Plan (1) Bipolar disorder with depression: Status: Acute Code(s): F31.9 - Bipolar disorder, unspecified (2) Delirium due to another medical condition: Status: Acute Code(s): F05 - Delirium due to known physiological condition Plan Mrs. Mcintosh is a 68 year-old woman with hx of Bipolar Disorder who was brought via EMS after daughter called 911 reporting pt with hallucinations and confused. Although pt has hx of Bipolar disorder, daughter reported, her presentation was different this time around. She was found to have UTI and started on antibiotic. She appears in much improved condition today without overt psychosis or delusions. We discussed risks, benefits and alternative treatment options. will hold ambien, other anticholigernic medications which can exacerbate confusions. PLAN 1. Admit o S1, CV, 5 mins checks 04/22 ambien 5mg po qhs. seroquel all at bedtime 800mg po qhs. Reason for continued inpatient stay Substantial Risk for: inability to function Time Spent With Patient Time: Total time managing care of this patient today ____ minutes.
[2024-04-22 09:48] VITALS: BP 111/67; PULSE 89; RESP 16; TEMP 36.5; O2SAT 99
[2024-04-22] MEDS: Latanoprost 0.005 % Ophth Sol 2.5 ML DROPS 1 DROP EYE-BOTH ×2 (09:51→20:29)
[2024-04-22] MEDS: polyethylene glycoL 3350 17 GM POWD.PACK PO (09:52)
[2024-04-22] MEDS: Venlafaxine HCl ER 150 MG CAP.ER.24H PO (09:53)
[2024-04-22] MEDS: Omeprazole 20 MG CAPSULE.DR PO ×2 (09:53→16:51)
[2024-04-22] MEDS: metFORMIN HCl 500 MG TABLET PO ×2 (09:54→16:52)
[2024-04-22] MEDS: cefuroxime axetiL 250 MG TABLET PO ×2 (09:54→20:27)
[2024-04-22] MEDS: Lipase/Prot/Amylase 24/76/120K 1 CAP CAPSULE.DR PO ×3 (09:54→16:51)
[2024-04-22] MEDS: Dicyclomine HCl 10 MG CAPSULE PO ×4 (09:54→20:26)
[2024-04-22] MEDS: PT OWN (Linaclotide [Linzess] 290 mcg capsule) 290 EACH PO (09:54)
[2024-04-22] MEDS: Simethicone 80 MG TAB.CHEW 160 MG PO ×4 (09:55→20:31)
[2024-04-22] MEDS: Brimonidine Tartrate 0.2% Oph 5 ML BOTTLE 1 DROP EYE-RIGHT ×2 (09:55→20:30)
[2024-04-22] MEDS: timoloL maleate 0.5 % Oph Sol 5 ML DRBTL 1 DROP EYE-RIGHT ×2 (09:56→20:29)
[2024-04-22 11:23] LABS: Glucose, Whole Blood 167 mg/dL (60-115)
[2024-04-22 16:11] LABS: Glucose, Whole Blood 136 mg/dL (60-115)
[2024-04-22 20:00] VITALS: BP 144/65; PULSE 78; RESP 18; TEMP 36.9; O2SAT 98
[2024-04-22] MEDS: traZODone HCL 50 MG TABLET PO (20:25)
[2024-04-22] MEDS: ALPRAZolam 0.5 MG TABLET 1 MG PO (20:26)
[2024-04-22] MEDS: Famotidine 20 MG TABLET PO (20:26)
[2024-04-22] MEDS: QUEtiapine Fumarate 400 MG TABLET PO (20:27)
[2024-04-22 21:08] VITALS: BP 160/67
[2024-04-22] MEDS: Prazosin HCL 1 MG CAPSULE 6 MG PO (21:08)
[2024-04-22] MEDS: Ondansetron ODT 4 MG TAB.RAPDIS TRANSLINGU (21:10)
[2024-04-22] MEDS: Zolpidem Tartrate 5 MG TABLET PO (21:10)
[2024-04-22 21:20] LABS: Glucose, Whole Blood 173 mg/dL (60-115)
[2024-04-23] MEDS: Omeprazole 20 MG CAPSULE.DR PO ×2 (06:09→17:39)
[2024-04-23 06:24] LABS: Glucose, Whole Blood 125 mg/dL (60-115)
[2024-04-23 08:35] VITALS: BP 107/59; PULSE 79; RESP 16; TEMP 36.6; O2SAT 97
[2024-04-23] MEDS: PT OWN (Linaclotide [Linzess] 290 mcg capsule) 290 EACH PO (08:40)
[2024-04-23] MEDS: polyethylene glycoL 3350 17 GM POWD.PACK PO (08:40)
[2024-04-23] MEDS: cefuroxime axetiL 250 MG TABLET PO ×2 (08:40→20:33)
[2024-04-23] MEDS: Brimonidine Tartrate 0.2% Oph 5 ML BOTTLE 1 DROP EYE-RIGHT ×2 (08:42→20:40)
[2024-04-23] MEDS: Simethicone 80 MG TAB.CHEW 160 MG PO ×4 (08:43→20:33)
[2024-04-23] MEDS: metFORMIN HCl 500 MG TABLET PO ×2 (08:44→17:39)
[2024-04-23] MEDS: Venlafaxine HCl ER 150 MG CAP.ER.24H PO (08:44)
[2024-04-23] MEDS: Lipase/Prot/Amylase 24/76/120K 1 CAP CAPSULE.DR PO ×3 (08:44→17:39)
[2024-04-23] MEDS: Dicyclomine HCl 10 MG CAPSULE PO ×4 (08:44→20:37)
[2024-04-23] MEDS: Latanoprost 0.005 % Ophth Sol 2.5 ML DROPS 1 DROP EYE-BOTH ×2 (08:46→20:40)
[2024-04-23] MEDS: timoloL maleate 0.5 % Oph Sol 5 ML DRBTL 1 DROP EYE-RIGHT ×2 (08:47→20:39)
[2024-04-23 11:15] LABS: Glucose, Whole Blood 176 mg/dL (60-115)
--- NOTE | 2024-04-23 11:24 | P.PNPSI_ITS ---
Subjective Subjective Date of Service: 04/23/24 Reason For Visit: hallucinations Interim History: Pt reports she slept through the night. She denies hearing voices, or seeing things that other can't see. She denies SI/HI. No overt delusional content. Review of Systems Review of Systems Pt denies chest pain No SOB No constipation currently- but hx of severe GI issues with constipation. Mental Status Exam Mental Status Exam Narrative: Appearance: wearing hospital gown, fair hygiene, in NAD Behavior: cooperative Psychomotor: no agitation or retardation noted Speech: clear, normal rate/rhythm/volume, spontaneous TP: linear TC: feeling better Mood: better Affect: congruent SI: none HI; none VH/AH: not today Delusions: no overt delusional content noted or reported Insight/judgment: fair x 2 memory/cog: alert, oriented x 4. pending MOCA Diagnostics Vital Signs (24Hr): Vital Signs - 24 hr 04/22/24 20:00 04/22/24 21:08 Temperature 98.4 F Pulse Rate 78 Respiratory Rate 18 Blood Pressure 144/65 H 160/67 H Pulse Oximetry 98 Oxygen Delivery Method Room Air BMI result Body Mass Index 28.2 Labs 04/19/24 21:23 04/22/24 07:32 Labs: Laboratory Results - last 48 hr 04/21/24 04/21/24 04/22/24 13:07 21:35 06:38 Sodium Potassium Chloride Carbon Dioxide Anion Gap BUN Creatinine Estim Creat Clear Calc Estimated GFR POC Glucose 143 H 119 H 112 Fasting Glucose Estimat Average Glucose Hemoglobin A1c % Calcium Magnesium Total Bilirubin AST ALT Alkaline Phosphatase Total Protein Albumin Triglycerides Cholesterol LDL Cholesterol, Calc HDL Cholesterol Vitamin B12 Folate TSH 04/22/24 04/22/24 04/22/24 07:32 11:16 16:03 Sodium 142 Potassium 3.7 Chloride 108 Carbon Dioxide 26 Anion Gap 12 BUN 17 H Creatinine 1.07 Estim Creat Clear Calc 47.3 Estimated GFR 51 POC Glucose 167 H 136 H Fasting Glucose 116 H Estimat Average Glucose 137 Hemoglobin A1c % 6.4 H Calcium 9.2 Magnesium 1.7 Total Bilirubin 0.5 AST 15 ALT 19 Alkaline Phosphatase 90 Total Protein 5.9 L Albumin 3.8 Triglycerides 123 Cholesterol 170 LDL Cholesterol, Calc 89 HDL Cholesterol 57 Vitamin B12 305 Folate 13.6 TSH 0.22 L 04/22/24 04/23/24 04/23/24 20:24 06:08 11:12 Sodium Potassium Chloride Carbon Dioxide Anion Gap BUN Creatinine Estim Creat Clear Calc Estimated GFR POC Glucose 173 H 125 H 176 H Fasting Glucose Estimat Average Glucose Hemoglobin A1c % Calcium Magnesium Total Bilirubin AST ALT Alkaline Phosphatase Total Protein Albumin Triglycerides Cholesterol LDL Cholesterol, Calc HDL Cholesterol Vitamin B12 Folate TSH Medications Medications Current Medications Acetaminophen (Acetaminophen 325 Mg Tablet) 975 mg PO Q6H PRN PRN Reason: pain Last Admin: 04/21/24 20:29 Dose: 975 mg Al Hydroxide/Mg Hydroxide (Magnesium Hydrox/Alum Hydrox 30 Ml Oral.Susp) 30 ml PO Q6H PRN PRN Reason: Heartburn/Nausea Alprazolam (Alprazolam 0.5 Mg Tablet) 1 mg PO QID PRN PRN Reason: Anxiety Last Admin: 04/22/24 20:26 Dose: 1 mg Lipase/Protease/Amylase (Lipase/Prot/Amylase 24/76/120k 1 Cap Capsule.) 1 cap PO TIDWM REPLACED BY [facility] Last Admin: 04/23/24 08:44 Dose: 1 cap Bisacodyl (Bisacodyl 5 Mg Tablet.) 10 mg PO BEDTIME REPLACED BY [facility] Last Admin: 04/22/24 22:54 Dose: Not Given Brimonidine Tartrate (Brimonidine Tartrate 0.2% Oph 5 Ml Bottle) 1 drop EYE- RIGHT BID REPLACED BY [facility] Last Admin: 04/23/24 08:42 Dose: 1 drop Cefuroxime Axetil (Cefuroxime Axetil 250 Mg Tablet) 250 mg PO BID REPLACED BY [facility] Stop: 04/28/24 08:59 Last Admin: 04/23/24 08:40 Dose: 250 mg Dicyclomine HCl (Dicyclomine Hcl 10 Mg Capsule) 10 mg PO QID REPLACED BY [facility] Last Admin: 04/23/24 08:44 Dose: 10 mg Famotidine (Famotidine 20 Mg Tablet) 20 mg PO BEDTIME REPLACED BY [facility] Last Admin: 04/22/24 20:26 Dose: 20 mg Latanoprost (Latanoprost 0.005 % Ophth [place] 2.5 Ml Drops) 1 drop EYE-BOTH BID REPLACED BY [facility] Last Admin: 04/23/24 08:46 Dose: 1 drop Magnesium Hydroxide (Milk Of Magnesia 30 Ml Oral.Susp) 30 ml PO DAILY PRN PRN Reason: Constipation Metformin HCl (Metformin Hcl 500 Mg Tablet) 500 mg PO BIDWM REPLACED BY [facility] Last Admin: 04/23/24 08:44 Dose: 500 mg Pt Own (Prucalopride [Motegrity] 2 Mg Tablet) 2 mg PO DAILY REPLACED BY [facility] Last Admin: 04/23/24 08:41 Dose: 2 mg Pt Own (Linaclotide [Linzess] 290 Mcg Capsule) 290 mcg PO DAILY REPLACED BY [facility] Last Admin: 04/23/24 08:40 Dose: 290 mcg Omeprazole (Omeprazole 20 Mg Capsule.Dr) 20 mg PO BID@0630,1630 REPLACED BY [facility] Last Admin: 04/23/24 06:09 Dose: 20 mg Ondansetron HCl (Ondansetron Odt 4 Mg Tab.Rapdis) 4 mg TRANSLINGU Q8H PRN PRN Reason: Nausea and Vomiting Last Admin: 04/22/24 21:10 Dose: 4 mg Polyethylene Glycol (Polyethylene Glycol 3350 17 Gm Powd.Pack) 17 gm PO DAILY REPLACED BY [facility] Last Admin: 04/23/24 08:40 Dose: 17 gm Prazosin HCl (Prazosin Hcl 1 Mg Capsule) 6 mg PO BEDTIME REPLACED BY [facility]; Protocol Last Admin: 04/22/24 21:08 Dose: 6 mg Quetiapine Fumarate (Quetiapine Fumarate 400 Mg Tablet) 800 mg PO BEDTIME ARETHA Simethicone (Simethicone 80 Mg Tab.Chew) 160 mg PO QID REPLACED BY [facility] Last Admin: 04/23/24 08:43 Dose: 160 mg Timolol Maleate (Timolol Maleate 0.5 % Oph [place] 5 Ml Drbtl) 1 drop EYE-RIGHT BID REPLACED BY [facility] Last Admin: 04/23/24 08:47 Dose: 1 drop Trazodone HCl (Trazodone Hcl 50 Mg Tablet) 50 mg PO BEDTIME MRX1 PRN PRN Reason: Insomnia Last Admin: 04/22/24 20:25 Dose: 50 mg Venlafaxine HCl (Venlafaxine Hcl Er 150 Mg Cap.Er.24h) 150 mg PO DAILY REPLACED BY [facility] Last Admin: 04/23/24 08:44 Dose: 150 mg Zolpidem Tartrate (Zolpidem Tartrate 5 Mg Tablet) 5 mg PO BEDTIME PRN PRN Reason: Insomnia Allergies Allergies Allergy/AdvReac Type Severity Reaction Status Date / Time No Known Allergies Allergy Verified 04/19/24 21:07 [No Known Allergies*] Assessment & Plan Assessment & Plan (1) Bipolar disorder with depression: Status: Acute Code(s): F31.9 - Bipolar disorder, unspecified (2) Delirium due to another medical condition: Status: Acute Code(s): F05 - Delirium due to known physiological condition Plan Mrs. Mcintosh is a 68 year-old woman with hx of Bipolar Disorder who was brought via EMS after daughter called 911 reporting pt with hallucinations and confused. Although pt has hx of Bipolar disorder, daughter reported, her presentation was different this time around. She was found to have UTI and started on antibiotic. She appears in much improved condition today without overt psychosis or delusions. We discussed risks, benefits and alternative treatment options. will hold ambien, other anticholigernic medications which can exacerbate confusions. PLAN 1. Admit o S1, CV, 5 mins checks 04/22 ambien 5mg po qhs. seroquel all at bedtime 800mg po qhs. 04/23 continue tx. Reason for continued inpatient stay Substantial Risk for: inability to function Time Spent With Patient Time: Total time managing care of this patient today ____ minutes.
[2024-04-23 16:35] LABS: Glucose, Whole Blood 229 mg/dL (60-115)
[2024-04-23 20:00] VITALS: BP 117/55; PULSE 90; RESP 16; TEMP 36.6; O2SAT 98
[2024-04-23 20:05] LABS: Glucose, Whole Blood 177 mg/dL (60-115)
[2024-04-23] MEDS: bisacodyL 5 MG TABLET.DR 10 MG PO (20:33)
[2024-04-23] MEDS: QUEtiapine Fumarate 400 MG TABLET 800 MG PO (20:33)
[2024-04-23] MEDS: Famotidine 20 MG TABLET PO (20:34)
[2024-04-23] MEDS: ALPRAZolam 0.5 MG TABLET 1 MG PO (20:37)
[2024-04-23] MEDS: Zolpidem Tartrate 5 MG TABLET PO (20:37)
[2024-04-23 21:30] VITALS: BP 101/56; PULSE 86; RESP 16; O2SAT 97
[2024-04-23] MEDS: Prazosin HCL 5 MG, Prazosin HCL 1 MG 6 MG PO (21:51)
[2024-04-24] MEDS: Omeprazole 20 MG CAPSULE.DR PO ×2 (06:21→17:43)
[2024-04-24 06:46] LABS: Glucose, Whole Blood 143 mg/dL (60-115)
[2024-04-24 08:59] VITALS: BP 87/54; PULSE 93; RESP 15; TEMP 36.9; O2SAT 97
[2024-04-24] MEDS: polyethylene glycoL 3350 17 GM POWD.PACK PO (09:00)
[2024-04-24] MEDS: Latanoprost 0.005 % Ophth Sol 2.5 ML DROPS 1 DROP EYE-BOTH ×2 (09:00→20:25)
[2024-04-24] MEDS: timoloL maleate 0.5 % Oph Sol 5 ML DRBTL 1 DROP EYE-RIGHT ×2 (09:00→20:25)
[2024-04-24] MEDS: Simethicone 80 MG TAB.CHEW 160 MG PO ×3 (09:01→20:23)
[2024-04-24] MEDS: PT OWN (Linaclotide [Linzess] 290 mcg capsule) 290 EACH PO (09:01)
[2024-04-24] MEDS: Brimonidine Tartrate 0.2% Oph 5 ML BOTTLE 1 DROP EYE-RIGHT ×2 (09:01→20:25)
[2024-04-24] MEDS: Venlafaxine HCl ER 150 MG CAP.ER.24H PO (09:01)
[2024-04-24] MEDS: metFORMIN HCl 500 MG TABLET PO ×2 (09:01→17:44)
[2024-04-24] MEDS: Dicyclomine HCl 10 MG CAPSULE PO ×4 (09:02→20:24)
[2024-04-24] MEDS: cefuroxime axetiL 250 MG TABLET PO ×2 (09:02→20:24)
[2024-04-24] MEDS: Lipase/Prot/Amylase 24/76/120K 1 CAP CAPSULE.DR PO ×3 (09:02→17:44)
--- NOTE | 2024-04-24 09:35 | HO.PSYCHPN ---
Subjective Subjective Date of Service: 04/24/24 Reason For Visit: hallucinations Subjective Notes: Conditional Voluntary Interim History: Pt reports she slept through the night. She denies hearing voices, or seeing things that other can't see. She denies SI/HI. No overt delusional content. Collateral information from daughter, who reports pt appears much improved and back to baseline. Review of Systems Review of Systems Pt denies chest pain No SOB No constipation currently- but hx of severe GI issues with constipation. Mental Status Exam Mental Status Exam Narrative: Appearance: wearing hospital gown, fair hygiene, in NAD Behavior: cooperative Psychomotor: no agitation or retardation noted Speech: clear, normal rate/rhythm/volume, spontaneous TP: linear TC: feeling better Mood: better Affect: congruent SI: none HI; none VH/AH: not today Delusions: no overt delusional content noted or reported Insight/judgment: fair x 2 memory/cog: alert, oriented x 4. MOCA 08/07, ACL 4.4 moderate cognitive impairment. Diagnostics Vital Signs (24Hr): Vital Signs - 24 hr 04/23/24 20:00 04/23/24 21:30 04/24/24 08:59 Temperature 97.8 F 98.4 F Pulse Rate 90 86 93 Respiratory Rate 16 16 15 Blood Pressure 117/55 L 101/56 L 87/54 L Pulse Oximetry 98 97 97 Oxygen Delivery Method Room Air Room Air Room Air BMI result Body Mass Index 28.2 Labs 04/19/24 21:23 04/22/24 07:32 Labs: Laboratory Results - last 48 hr 04/22/24 04/22/24 04/22/24 11:16 16:03 20:24 POC Glucose 167 H 136 H 173 H 04/23/24 04/23/24 04/23/24 06:08 11:12 16:27 POC Glucose 125 H 176 H 229 H 04/23/24 04/24/24 19:58 06:26 POC Glucose 177 H 143 H Medications Medications Current Medications Acetaminophen (Acetaminophen 325 Mg Tablet) 975 mg PO Q6H PRN PRN Reason: pain Last Admin: 04/21/24 20:29 Dose: 975 mg Al Hydroxide/Mg Hydroxide (Magnesium Hydrox/Alum Hydrox 30 Ml Oral.Susp) 30 ml PO Q6H PRN PRN Reason: Heartburn/Nausea Alprazolam (Alprazolam 0.5 Mg Tablet) 1 mg PO BID PRN PRN Reason: Anxiety Lipase/Protease/Amylase (Lipase/Prot/Amylase 24/76/120k 1 Cap Capsule.) 1 cap PO TIDWM [facility] Last Admin: 04/24/24 09:02 Dose: 1 cap Bisacodyl (Bisacodyl 5 Mg Tablet.) 10 mg PO BEDTIME [facility] Last Admin: 04/23/24 20:33 Dose: 10 mg Brimonidine Tartrate (Brimonidine Tartrate 0.2% Oph 5 Ml Bottle) 1 drop EYE-RIGHT BID [facility] Last Admin: 04/24/24 09:01 Dose: 1 drop Cefuroxime Axetil (Cefuroxime Axetil 250 Mg Tablet) 250 mg PO BID [facility] Stop: 04/28/24 08:59 Last Admin: 04/24/24 09:02 Dose: 250 mg Dicyclomine HCl (Dicyclomine Hcl 10 Mg Capsule) 10 mg PO QID [facility] Last Admin: 04/24/24 09:02 Dose: 10 mg Famotidine (Famotidine 20 Mg Tablet) 20 mg PO BEDTIME [facility] Last Admin: 04/23/24 20:34 Dose: 20 mg Latanoprost (Latanoprost 0.005 % Ophth [place] 2.5 Ml Drops) 1 drop EYE-BOTH BID [facility] Last Admin: 04/24/24 09:00 Dose: 1 drop Magnesium Hydroxide (Milk Of Magnesia 30 Ml Oral.Susp) 30 ml PO DAILY PRN PRN Reason: Constipation Metformin HCl (Metformin Hcl 500 Mg Tablet) 500 mg PO BIDWM [facility] Last Admin: 04/24/24 09:01 Dose: 500 mg Pt Own (Prucalopride [Motegrity] 2 Mg Tablet) 2 mg PO DAILY [facility] Last Admin: 04/24/24 09:01 Dose: 2 mg Pt Own (Linaclotide [Linzess] 290 Mcg Capsule) 290 mcg PO DAILY [facility] Last Admin: 04/24/24 09:01 Dose: 290 mcg Omeprazole (Omeprazole 20 Mg Capsule.) 20 mg PO BID@0630,1630 [facility] Last Admin: 04/24/24 06:21 Dose: 20 mg Ondansetron HCl (Ondansetron Odt 4 Mg Tab.Rapdis) 4 mg TRANSLINGU Q8H PRN PRN Reason: Nausea and Vomiting Last Admin: 04/22/24 21:10 Dose: 4 mg Polyethylene Glycol (Polyethylene Glycol 3350 17 Gm Powd.Pack) 17 gm PO DAILY [facility] Last Admin: 04/24/24 09:00 Dose: 17 gm Prazosin HCl 5 mg/ Prazosin (HCl 1 mg) 6 mg PO BEDTIME [facility] Last Admin: 04/23/24 21:51 Dose: 6 mg Quetiapine Fumarate (Quetiapine Fumarate 400 Mg Tablet) 800 mg PO BEDTIME [facility] Last Admin: 04/23/24 20:33 Dose: 800 mg Simethicone (Simethicone 80 Mg Tab.Chew) 160 mg PO QID [facility] Last Admin: 04/24/24 09:01 Dose: 160 mg Timolol Maleate (Timolol Maleate 0.5 % Oph [place] 5 Ml Drbtl) 1 drop EYE-RIGHT BID [facility] Last Admin: 04/24/24 09:00 Dose: 1 drop Venlafaxine HCl (Venlafaxine Hcl Er 150 Mg Cap.Er.24h) 150 mg PO DAILY [facility] Last Admin: 04/24/24 09:01 Dose: 150 mg Zolpidem Tartrate (Zolpidem Tartrate 5 Mg Tablet) 5 mg PO BEDTIME PRN PRN Reason: Insomnia Last Admin: 04/23/24 20:37 Dose: 5 mg Allergies Allergies Allergy/AdvReac Type Severity Reaction Status Date / Time No Known Allergies Allergy Verified 04/19/24 21:07 [No Known Allergies*] Assessment & Plan Assessment & Plan (1) Bipolar disorder with depression: Status: Acute Code(s): F31.9 - Bipolar disorder, unspecified (2) Delirium due to another medical condition: Status: Acute Code(s): F05 - Delirium due to known physiological condition Plan Mrs. Mcintosh is a 68 year-old woman with hx of Bipolar Disorder who was brought via EMS after daughter called 911 reporting pt with hallucinations and confused. Although pt has hx of Bipolar disorder, daughter reported, her presentation was different this time around. She was found to have UTI and started on antibiotic. She appears in much improved condition today without overt psychosis or delusions. We discussed risks, benefits and alternative treatment options. will hold ambien, other anticholigernic medications which can exacerbate confusions. PLAN 1. Admit o S1, CV, 5 mins checks 04/22 ambien 5mg po qhs. seroquel all at bedtime 800mg po qhs. 04/23 continue tx. 04/24 continue tx. Patient educated on: diagnosis and medication risk/benefits Informed Consent: understands Reason for continued inpatient stay Substantial Risk for: stable for discharge Time Spent With Patient Time: Total time managing care of this patient today ____ minutes.
[2024-04-24 19:49] LABS: Glucose, Whole Blood 189 mg/dL (60-115)
[2024-04-24 20:22] VITALS: BP 116/61; PULSE 83; RESP 14; TEMP 36.4; O2SAT 99
[2024-04-24 20:24] VITALS: BP 116/61
[2024-04-24] MEDS: Famotidine 20 MG TABLET PO (20:24)
[2024-04-24] MEDS: bisacodyL 5 MG TABLET.DR 10 MG PO (20:24)
[2024-04-24] MEDS: Prazosin HCL 5 MG, Prazosin HCL 1 MG 6 MG PO (20:24)
[2024-04-24] MEDS: QUEtiapine Fumarate 400 MG TABLET 800 MG PO (20:24)
[2024-04-24] MEDS: ALPRAZolam 0.5 MG TABLET 1 MG PO (20:53)
[2024-04-24] MEDS: Zolpidem Tartrate 5 MG TABLET PO (20:53)
[2024-04-25] MEDS: Omeprazole 20 MG CAPSULE.DR PO (05:31)
[2024-04-25 05:40] LABS: Glucose, Whole Blood 150 mg/dL (60-115)
[2024-04-25] MEDS: polyethylene glycoL 3350 17 GM POWD.PACK PO (09:08)
[2024-04-25] MEDS: timoloL maleate 0.5 % Oph Sol 5 ML DRBTL 1 DROP EYE-RIGHT (09:08)
[2024-04-25] MEDS: Brimonidine Tartrate 0.2% Oph 5 ML BOTTLE 1 DROP EYE-RIGHT (09:09)
[2024-04-25] MEDS: Latanoprost 0.005 % Ophth Sol 2.5 ML DROPS 1 DROP EYE-BOTH (09:09)
[2024-04-25] MEDS: PT OWN (Linaclotide [Linzess] 290 mcg capsule) 290 EACH PO (09:10)
[2024-04-25] MEDS: metFORMIN HCl 500 MG TABLET PO (09:11)
[2024-04-25] MEDS: Venlafaxine HCl ER 150 MG CAP.ER.24H PO (09:11)
[2024-04-25] MEDS: Lipase/Prot/Amylase 24/76/120K 1 CAP CAPSULE.DR PO ×2 (09:11→11:41)
[2024-04-25] MEDS: Simethicone 80 MG TAB.CHEW 160 MG PO (09:11)
[2024-04-25] MEDS: Dicyclomine HCl 10 MG CAPSULE PO ×2 (09:11→11:41)
[2024-04-25] MEDS: cefuroxime axetiL 250 MG TABLET PO (09:11)
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
[2024-04-25 09:41] VITALS: BP 90/52; PULSE 84; RESP 16; TEMP 36.6
== END 2024-04-25 15:00 | disposition home or self-care (01) | DRG 885 ==
LOC: HO.ED 21:56 → HO.PGERI 04-21 13:07
PROVIDERS: Admitting Provider Social Worker; Emergency Provider Emergency Medicine; PCP Internal Medicine Geriatric Medicine; Visit Provider Social Worker
DX: F31.9 Bipolar disorder, unspecified (principal); F05 Delirium due to known physiological condition; Z79.899 Other long term (current) drug therapy
CPT/HCPCS: 36415; 80053; 80061; 80307; 81001; 82607; 82746; 82947; 83036; 83735; 84443; 85025; 87086; 90656; 93005; 99285; S9485

== ENCOUNTER → 2024-04-21 13:01 | Outpatient (BNV) | payer OTHER, SELFPAY | PROVIDERS: Admitting Provider Social Worker; Emergency Provider Emergency Medicine; PCP Internal Medicine Geriatric Medicine; Visit Provider Social Worker | DX: F31.5 Bipolar disorder, current episode depressed, severe, with psychotic features (principal) | CPT/HCPCS: 90792; 99231; 99232; 99239 ==

== ENCOUNTER 2024-05-05 10:09 | Outpatient (REF) | payer OTHER, SELFPAY ==
[2024-05-05 11:23] LABS: Appearance Urine Cloudy; Color Urine Dark Yellow; Glucose Urine UA Negative (Negative); Leukocyte Esterase Urine Small (1+) (Negative); Nitrite Urine Negative (Negative); PH 5.5 (5.0-9.0); UMIC TRIGGER UACC YES; Urine Blood Negative (Negative); Urine Ketones Trace mg/dL (Negative); Urine Protein 30 (1+) mg/dL (Neg-Trace)
[2024-05-05 11:36] LABS: Bacteria Urine None Seen (None Seen); Calcium Oxalate Crystals Urine Present; Granular Casts Urine Present; RBC Urine 0-2 /HPF (0-2); UACC Culture Trigger YES; WBC Urine 21-50 /HPF (0-5)
== END 2024-05-05 10:10 | disposition home or self-care (01) ==
LOC: HO.HHCL 10:09
PROVIDERS: Visit Provider Internal Medicine Geriatric Medicine
DX: Z87.440 Personal history of urinary (tract) infections (principal); F05 Delirium due to known physiological condition
CPT/HCPCS: 81001; 87086

== ENCOUNTER 2024-05-29 11:32 | Outpatient (REF) | payer OTHER, SELFPAY ==
--- NOTE | ~2024-05-29 | MM_ITS ---
EXAMINATION: MM SCREENING DIGITAL BREAST TOMOSYNTHESIS, BILATERAL CLINICAL INFORMATION: Screening. Asymptomatic. COMPARISON: Mammography: Comparison is made with available priors TECHNIQUE: Digital breast mammography with tomosynthesis is performed in both the craniocaudal and mediolateral oblique views along with computer-aided detection (CAD). FINDINGS: There are scattered areas of fibroglandular density (ACR BI-RADS breast composition Category b). There are no significant masses, abnormal calcifications, or other abnormalities. MM/MM tomosynthesis screening BI IMPRESSION: No mammographic evidence of malignancy. ASSESSMENT: BI-RADS BI-RADS 1 - Negative RECOMMENDATION: Routine annual mammography screening. 1 year F/U This examination should not preclude the clinical evaluation of a suspicious palpable abnormality. This patient's information was entered into a reminder system with a target due date for their next mammogram. Electronically signed by: Margi Bird DO 06/09/2024 10:48 AM EDT
== END 2024-05-29 11:33 | disposition home or self-care (01) ==
LOC: HO.MAMMO 11:32
PROVIDERS: Visit Provider Internal Medicine Geriatric Medicine
DX: Z12.31 Encounter for screening mammogram for malignant neoplasm of breast (principal)
CPT/HCPCS: 77063; 77067

== ENCOUNTER → 2024-05-29 11:45 | Outpatient (BNV) | payer OTHER, SELFPAY | PROVIDERS: Visit Provider Internal Medicine | DX: Z12.31 Encounter for screening mammogram for malignant neoplasm of breast (principal) | CPT/HCPCS: 77063; 77067 ==

== ENCOUNTER 2024-06-26 11:55 | Outpatient (REF) | payer OTHER, SELFPAY ==
[2024-06-26 13:27] LABS: Appearance Urine Clear; Color Urine Yellow; Glucose Urine UA Negative (Negative); Leukocyte Esterase Urine Moderate (2+) (Negative); Nitrite Urine Negative (Negative); UMIC TRIGGER UACC YES; Urine Blood Negative (Negative); Urine Ketones Negative (Negative); Urine Protein Negative (Neg-Trace)
[2024-06-26 13:36] LABS: Bacteria Urine None Seen (None Seen); Hyaline Casts Urine 0-2 /LPF (0-2); RBC Urine 0-2 /HPF (0-2); UACC Culture Trigger YES
== END 2024-06-26 11:56 | disposition home or self-care (01) ==
LOC: HO.HHCL 11:55
PROVIDERS: Visit Provider Internal Medicine Geriatric Medicine
DX: N39.0 Urinary tract infection, site not specified (principal); R30.0 Dysuria
CPT/HCPCS: 81001; 87086

== ENCOUNTER 2024-07-11 14:33 | Outpatient (AMB) | payer OTHER, SELFPAY ==
[2024-07-11 14:39] VITALS: BP 111/71; PULSE 88; BMI 25.6
--- NOTE | 2024-07-11 14:39 | MHC.OFFVIS ---
Vital Signs 07/11/24 14:39 Height 5 ft 2 in Weight 139 lb 12.369 oz BMI 25.6 BP 111/71 Blood Pressure Location Lt brachial Position Sitting Pulse 88 Intake Visit Reasons: 6 month follow up Intake Note: Makenna presents in 6 months follow up of IBS. CC: Patient states that she is doing the same and still c/o abdominal pain, dizziness, fatigue, constipation, nausea, and vomiting. Ribbon Sweatband Operator Required: No Accompanied by: Self / Same As Patient Allergies No Known Allergies [No Known Allergies*] Allergy (Verified 07/11/24 14:43) HPI HPI 6 month follow up: Details: Assessment & Plan (1) Chronic idiopathic constipation: Code(s): K59.04 - Chronic idiopathic constipation Category: Medical (2) GERD (gastroesophageal reflux disease): Comment: This resolved after we got her bowels moving and she does not need any acid suppression therapy aeb Code(s): K21.9 - Gastro-esophageal reflux disease without esophagitis Category: Medical (3) Small bowel motility disorder: Code(s): K59.9 - Functional intestinal disorder, unspecified Category: Medical (4) Ileus: Code(s): K56.7 - Ileus, unspecified Category: Medical (5) Nausea and vomiting: Code(s): R11.2 - Nausea with vomiting, unspecified Category: Surgical Plan (She continues on her bisacodyl, dicyclomine, famotidine, Proctosol cream for hemorrhoids, Linzess 290 micro g, Creon 24,000, omeprazole 40 mg a day, MiraLax, Zofran as needed, senna, and simethicone. Medications that could be confounding our efforts towards bowel motility include Effexor, Seroquel, clonidine, amitriptyline, and she is on methylphenidate and I am uncertain how this impacts her bowels. You would think it would stimulate them but apparently that has not the case. am referring her to [facility] for 2nd opinion since she has seen a physician here without resolution of her condition and I have worked with her for quite a long time and I just can not seem to get a handle on how to manage her overall burden.) She does not see [facility] until 10/2024!! She feels that the Aciphex helped her GERD at least. She is taking the reglan 6 times a day w/o any adverse effect and she feels that it helps, The only medication I can think of that we have not tried is Zelnorm - this has been on and off of the market, but we will see if it is available and do a PA since she has very resistant constipation and is failing multiple other modalities. RoV 6 mos. Medications: New tegaserod hydrogen maleate (Zelnorm) 6 mg PO ONCE 30 tabs 6RF K59.04 - Chronic idiopathic constipation, K59.9 - Functional intestinal disorder, unspecified TODAY'S VISIT (She continues on her bisacodyl, dicyclomine, famotidine, Proctosol cream for hemorrhoids, Linzess 290 micro g, Creon 24,000, omeprazole 40 mg a day, MiraLax, Zofran as needed, senna, and simethicone. Medications that could be confounding our efforts towards bowel motility include Effexor, Seroquel, clonidine, amitriptyline, and she is on methylphenidate and I am uncertain how this impacts her bowels. You would think it would stimulate them but apparently that has not the case. am referring her to [facility] for 2nd opinion since she has seen a physician here without resolution of her condition and I have worked with her for quite a long time and I just can not seem to get a handle on how to manage her overall burden.) She does not see [facility] until 10/2024!! She continues not to move her bowels well despite failing Linzess, Amitiza, Trulance, Motegrity, Dulcolax added to all of these agents, Reglan added to all of these agents, and now I think we are going to try Ibsrela. She does not see [facility] until October. She is having a new problem of recurrent urine tract infections. One of them was so bad she started seeing things and had to be hospitalized with mental status changes and then sent to a fpc facility. I note that on her urine she is still showing leuk Estrace although the culture is not growing anything out showing only urogenital contamination. However, she has consistently had casts and crystals in her urine and it could be she trying to pass stones or urinary sludge. With this in mind I am going to give her prescription for Flomax. This will also help if the urine tract infections or happening because she is not fully emptying her bladder and she is creating reservoir for bacteria debride. I am also referring her to urology for definitive treatment. Return office visit in 6 weeks [facility] Medical History Schizophrenia Irritable bowel syndrome with constipation Anemia Ileus Tubular adenoma of colon History of pancreatitis Diverticulitis GERD (gastroesophageal reflux disease) Chronic idiopathic constipation Surgical History History of esophagogastroduodenoscopy (EGD) Hx of colonoscopy Family History Father No problems noted. Mother Diabetes Melanoma Family history of hypertension Family history of diabetes mellitus Social History Household Members: Significant Other Housing: House Do you presently have visiting nurse or other home services: Yes (Visiting nurse. [facility] services) Alcohol intake: never Patient Tobacco Use Status: Never used Tobacco Second Hand Smoke Exposure: No service: No Current occupational status: disabled Sexual orientation: Straight/Heterosexual Review of Systems Const Denies fatigue, Denies fever(s), Denies night sweats, Denies poor appetite and Denies weight loss ENT Reports Normal hearing present, Denies dental pain, Denies dysphagia, Denies hearing loss, Denies mouth pain, Denies odynophagia, Denies throat swelling, Denies tongue swelling and Reports other (Dentition adequate) Card Reports no additional complaints Resp Reports no additional complaints GI Details: Denies abdominal pain, Denies melena, Reports bloating, Denies hematochezia, Reports constipation, Denies GI cramping, Denies dysphagia, Denies excessive flatus, Denies early satiety, Reports heartburn, Denies diarrhea, Denies nausea, Denies odynophagia, Denies vomiting and Denies hematemesis Reports urinary frequency, Reports difficulty voiding, Reports dysuria and Reports pelvic pain Skin/Breast Denies pruritus, Denies lesions, Denies rash and Denies jaundice Neuro Reports Normal hearing present and Denies Abnormal speech present Endo Denies fatigue Aller/Immun Denies throat swelling and Denies tongue swelling Physical Exam Vital Signs: Last Vital Signs Pulse 88 07/11/24 14:39 BP 111/71 07/11/24 14:39 BMI result Body Mass Index 25.6 Const General: cooperative, no acute distress, well developed and well groomed Nutritional Appearance: average body habitus and well nourished Orientation/consciousness: oriented to person, oriented to place and oriented to time Limitations: No language barrier HEENT Head: Yes normocephalic and Yes atraumatic Eyes General: appearance normal, both eyes and all related structures Pupils: Equal, round and reactive pupils present Neck Neck: Yes normal visual inspection and Yes no lymphadenopathy Thyroid: Thyroid normal Resp Effort & Inspection: normal respiratory effort and able to speak in complete sentences Auscultation: clear to auscultation bilaterally Cardio Rate: regular rate Rhythm: regular rhythm Heart sounds: Normal, physiologic split S2 sound present Peripheral pulses: radial pulses present and posterior tibial pulses present GI Inspection: No distended, No Abdominal panniculus present and Yes obesity Palpation (GI): Soft to palpation, Tenderness to palpation present (GI) suprapubicly, no guarding, not rigid and No hepatosplenomegaly present Percussion: Yes normal to percussion Auscultation: normal bowel sounds Rectal Exam - Female: deferred Skin General skin exam: no rashes or lesions noted, turgor normal, skin not dry, no jaundice, No spider nevi and no striae Rashes: no rashes Nails: normal Neuro General: oriented to person, oriented to place and oriented to time Cranial nerves: Yes Equal, round and reactive pupils present and Yes Normal hearing present Speech: No Abnormal speech present Extrem General: Yes normal to inspection, No clubbing, No cyanosis and No edema Psych Appearance: grossly normal and well kempt Mental Status: mental status grossly normal Speech and movement: Normal speech and movement present Affect: normal affect Attitude: cooperative Thought process: Normal thought process present and not confabulating Thought content: Normal thought content present Insight: Limited insight present (Psych) Judgement: Limited judgement present (Psych) Assessment & Plan Assessment & Plan (1) Chronic idiopathic constipation: Code(s): K59.04 - Chronic idiopathic constipation Category: Medical (2) Ileus: Code(s): K56.7 - Ileus, unspecified Category: Medical (3) Small bowel motility disorder: Code(s): K59.9 - Functional intestinal disorder, unspecified Category: Medical (4) GERD (gastroesophageal reflux disease): Comment: This resolved after we got her bowels moving and she does not need any acid suppression therapy aeb Code(s): K21.9 - Gastro-esophageal reflux disease without esophagitis Category: Medical (5) Abdominal cramping: Code(s): R10.9 - Unspecified abdominal pain Category: Medical (6) Diverticulitis: Code(s): K57.92 - Diverticulitis of intestine, part unspecified, without perforation or abscess without bleeding Category: Medical (7) Renal casts: Code(s): R82.998 - Other abnormal findings in urine Category: Medical (8) Recurrent UTI (urinary tract infection): Code(s): N39.0 - Urinary tract infection, site not specified Category: Medical Plan (She continues on her bisacodyl, dicyclomine, famotidine, Proctosol cream for hemorrhoids, Linzess 290 micro g, Creon 24,000, omeprazole 40 mg a day, MiraLax, Zofran as needed, senna, and simethicone. Medications that could be confounding our efforts towards bowel motility include Effexor, Seroquel, clonidine, amitriptyline, and she is on methylphenidate and I am uncertain how this impacts her bowels. You would think it would stimulate them but apparently that has not the case. am referring her to [facility] for 2nd opinion since she has seen a physician here without resolution of her condition and I have worked with her for quite a long time and I just can not seem to get a handle on how to manage her overall burden.) She does not see [facility] until 10/2024!! She continues not to move her bowels well despite failing Linzess, Amitiza, Trulance, Motegrity, Dulcolax added to all of these agents, Reglan added to all of these agents, and now I think we are going to try Ibsrela. She does not see [facility] until October. She is having a new problem of recurrent urine tract infections. One of them was so bad she started seeing things and had to be hospitalized with mental status changes and then sent to a fpc facility. I note that on her urine she is still showing leuk Estrace although the culture is not growing anything out showing only urogenital contamination. However, she has consistently had casts and crystals in her urine and it could be she trying to pass stones or urinary sludge. With this in mind I am going to give her prescription for Flomax. This will also help if the urine tract infections or happening because she is not fully emptying her bladder and she is creating reservoir for bacteria debride. I am also referring her to urology for definitive treatment. Return office visit in 6 weeks Orders: Referrals Urology Referral N39.0 - Urinary tract infection, site not specified, R82.998 - Other abnormal findings in urine Medications: New tenapanor (Ibsrela) must administer immediately before first meal of day/breakfast and dinner 50 mg PO BID 60 tabs 6RF K59.04 - Chronic idiopathic constipation tamsulosin 0.4 mg PO DAILY 30 caps 3RF R82.998 - Other abnormal findings in urine Coding Level of Care Code Est Pt Level 4 (13838) Diagnoses Chronic idiopathic constipation K59.04 Ileus K56.7 Small bowel motility disorder K59.9 GERD (gastroesophageal reflux disease) K21.9 Abdominal cramping R10.9 Diverticulitis K57.92 Renal casts R82.998 Recurrent UTI (urinary tract infection) N39.0 Time Spent (min) 36
== END 2024-07-11 15:22 | disposition home or self-care (01) ==
PROVIDERS: PCP Internal Medicine Geriatric Medicine; Visit Provider Nurse Practitioner
DX: K59.04 Chronic idiopathic constipation (principal); K56.7 Ileus, unspecified; K59.9 Functional intestinal disorder, unspecified; K21.9 Gastro-esophageal reflux disease without esophagitis; R10.9 Unspecified abdominal pain; K57.92 Diverticulitis of intestine, part unspecified, without perforation or abscess without bleeding; R82.998 Other abnormal findings in urine; N39.0 Urinary tract infection, site not specified
CPT/HCPCS: 99214

== ENCOUNTER → 2024-07-11 14:33 | Outpatient (BNVA) | payer OTHER, SELFPAY | PROVIDERS: PCP Internal Medicine Geriatric Medicine; Visit Provider Nurse Practitioner | DX: K58.1 Irritable bowel syndrome with constipation (principal); K59.04 Chronic idiopathic constipation; K21.9 Gastro-esophageal reflux disease without esophagitis; K59.9 Functional intestinal disorder, unspecified; K56.7 Ileus, unspecified; K57.92 Diverticulitis of intestine, part unspecified, without perforation or abscess without bleeding; R11.2 Nausea with vomiting, unspecified; R10.9 Unspecified abdominal pain; R42 Dizziness and giddiness; R53.83 Other fatigue; R82.998 Other abnormal findings in urine; N39.0 Urinary tract infection, site not specified; Z79.899 Other long term (current) drug therapy | CPT/HCPCS: 99212 ==

== ENCOUNTER 2024-07-27 14:51 | Outpatient (AMB) | payer OTHER, SELFPAY ==
--- NOTE | 2024-07-26 19:06 | MHC.OFFVIS ---
Intake Visit Reasons: recurrent UTI Intake Note: New patient is present to establish care for recurrent UTI Any Urology Medications: Tamsolusin Antibiotic Allergy: None Blood Thinner: None PVR: 0ml Family History: Bladder Cancer? No Prostate Cancer? No Patient Symptoms: Patient states she is experiencing pain when urinating and discomfort Accompanied by: Self / Same As Patient Allergies No Known Allergies [No Known Allergies*] Allergy (Verified 07/27/24 14:57) Medication List - Last Reconciled 07/27/24 by Robert Hoffman MD alprazolam 1 mg PO QID PRN bisacodyl 10 mg (2 x 5 mg) PO BEDTIME brimonidine-timolol 0.2-0.5 % (Combigan) 1 drp ophthalmic-Right BID dicyclomine 10 mg PO QID doxycycline hyclate 100 mg PO BID 10 days famotidine 40 mg PO BEDTIME hydroxyzine pamoate 50 mg PO BID PRN latanoprost 0.005% 1 drp ophthalmic (eye) BID linaclotide (Linzess) 290 mcg PO DAILY [id number] 24,000-76,000 -120,000 unit (Creon) 1 cap PO QID methylphenidate HCl ER 20 mg PO BID metoclopramide HCl mg PO polyethylene glycol 3350 17 grams PO DAILY prazosin 6 mg (3 x 2 mg) PO BEDTIME prucalopride (Motegrity) 2 mg PO DAILY quetiapine ER mg PO rabeprazole 20 mg PO BID sennosides (senna) 17.2 mg (2 x 8.6 mg) PO BEDTIME simethicone 180 mg PO QID tamsulosin 0.4 mg PO DAILY tenapanor (Ibsrela) 50 mg PO BID venlafaxine ER mg PO BID zolpidem 10 mg PO BEDTIME PRN HPI Comments Details: 07/27/24--Makenna is here for evaluation of recurrent UTI's. She states that she has urinary symptoms of burning with urination and it feels like something sharp in her urethra. She has urinary frequency during the daytime every hour. She is up 1 time at night to urinate. She states that she has had visible blood in the urine. She states that she saw a urologist in the past and had a trial of InterStim that was painful and did not work. Chart reviewed, No recent Upper tract imaging, CTAP-- 12/2021 - tiny calculi right kidney 1-3 mm. I have discussed further evaluation with CT urogram and outpatient cystoscopy. Will send today's urine for cytology and culture. Will empirically place her on doxycycline 100 mg twice a day for 10 days. Labs: All three Urine c/s mixed bacteria: 04/20/24, 05/05/24, 06/26/24 [facility] Medical History Schizophrenia Irritable bowel syndrome with constipation Anemia Ileus Tubular adenoma of colon History of pancreatitis Diverticulitis GERD (gastroesophageal reflux disease) Chronic idiopathic constipation Surgical History History of esophagogastroduodenoscopy (EGD) Hx of colonoscopy Family History Father No problems noted. Mother Diabetes Melanoma Family history of hypertension Family history of diabetes mellitus Social History Household Members: Significant Other Housing: House Do you presently have visiting nurse or other home services: Yes (Visiting nurse. [facility] services) Alcohol intake: never Patient Tobacco Use Status: Never used Tobacco Second Hand Smoke Exposure: No service: No Current occupational status: disabled Sexual orientation: Straight/Heterosexual Review of Systems Const All systems reviewed & are unremarkable except as noted in HPI and below Reports no additional complaints Eyes Reports no additional complaints ENT Reports no additional complaints Card Reports no additional complaints Resp Reports no additional complaints GI Reports no additional complaints Reports as per HPI Musc Reports no additional complaints Skin/Breast Reports system reviewed and no additional complaints, except as documented Neuro Reports no additional complaints Psych Reports no additional complaints Endo Reports no additional complaints Deo/Lymph Reports no additional complaints Aller/Immun Reports no additional complaints Physical Exam Const General: cooperative, healthy appearing and no acute distress Orientation/consciousness: patient oriented x3 HEENT Head: Yes normal to inspection, Yes normocephalic and Yes atraumatic Eyes Conjunctivae: conjunctivae normal Neck Neck: Yes normal visual inspection and Yes trachea midline Chest Chest palpation & inspection: normal inspection of the chest Resp Effort & Inspection: normal respiratory effort Cardio Rate: regular rate GI Inspection: Yes normal to inspection Skin General skin exam: no rashes or lesions noted Neuro General: patient oriented x3 Extrem General: No edema Psych Appearance: grossly normal Office Procedures Post Void Residual Post Residual Void Post Void Residual (PVR): 0 [id number] Void Residual by ultrasound Results AMB Urinalysis, Automated UA Leukoctes 500 Micha/uL Last Edit by Tessa Harris CMA on 07/27/24 15:12 UA Nitrite Negative Last Edit by Tessa Harris, H[employer] D[employer]ITY [employer]ORER on 07/27/24 15:12 UA Urobilinogen 0.2 mg/dL Last Edit by Tessa Harris, HIGH DENSITY PRESS LABORER on 07/27/24 15:12 UA Protein 30 mg/dL Last Edit by Tessa Harris, HIGH DENSITY PRESS LABORER on 07/27/24 15:12 UA pH 6.0 Last Edit by Tessa Harris, HIGH DENSITY PRESS LABORER on 07/27/24 15:12 UA Blood 0 Raulito/uL Last Edit by Tessa Harris, HIGH DENSITY PRESS LABORER on 07/27/24 15:12 UA Specific Selig[place] 1.030 Last Edit by Tessa Harris, KENIA on 07/27/24 15:12 UA Ketone Negative Last Edit by Tessa Harris, KENIA on 07/27/24 15:12 UA Bilirubin 0 mg/dL Last Edit by Tessa Harris, KENIA on 07/27/24 15:12 UA Glucose 0 mg/dL Last Edit by Tessa Harris, KENIA on 07/27/24 15:12 Results Reviewed Results Reviewed: Laboratory Last Values Urine pH (Auto) 6.0 07/27/24 14:58 Specific Selig[place] (Auto) 1.030 07/27/24 14:58 Urine Protein (Auto) 30 mg/dL 07/27/24 14:58 Glucose (UA)(Auto) 0 mg/dL 07/27/24 14:58 Urine Ketones (Auto) Negative 07/27/24 14:58 Urine Blood (Auto) 0 Raulito/uL 07/27/24 14:58 Urine Nitrite (Auto) Negative 07/27/24 14:58 Urine Bilirubin (Auto) 0 mg/dL 07/27/24 14:58 Urine Urobilinogen (Auto) 0.2 mg/dL 07/27/24 14:58 Leukocyte Esterase (Auto) 500 Micha/uL 07/27/24 14:58 Assessment & Plan Assessment & Plan (1) Recurrent UTI (urinary tract infection): Code(s): N39.0 - Urinary tract infection, site not specified Category: Medical (2) Hematuria: Code(s): R31.9 - Hematuria, unspecified Category: Medical (3) Bilateral kidney stones: Code(s): N20.0 - Calculus of kidney Category: Medical Plan I have discussed further evaluation with CT urogram and outpatient cystoscopy. Will send today's urine for cytology and culture. Will empirically place her on doxycycline 100 mg twice a day for 10 days. Orders: Orders Urine Cytology Today N39.0 - Urinary tract infection, site not specified AMB Urinalysis Automated Today Z13.9 - Encounter for screening, unspecified AMB Post Void Residual by ultrasound Today N39.0 - Urinary tract infection, site not specified Urine Culture Today N39.0 - Urinary tract infection, site not specified CT urogram Today N39.0 - Urinary tract infection, site not specified, R31.9 - Hematuria, unspecified Medications: New doxycycline hyclate 100 mg PO BID 10 days 20 tabs 0RF Patient Instructions: The patient had an opportunity to ask questions regarding treatment plan. The patient expressed understanding and agreement with the above treatment plan. The patient is aware they should contact our office by phone for worsening of their current condition or the appearance of new symptoms. Compliance is encouraged with any medications and followup testing that is ordered. It is a privilege to be allowed the opportunity to participate in the urologic care of your patient. If you have any questions or concerns regarding treatment for the above conditions please do not hesitate to contact me. The office telephone contact is [phone]. This note is constructed in part using voice recognition software. While every effort has been made to ensure accuracy boat designer errors may have been included. Yours sincerely, Robert Hoffman MD Coding Level of Care Code New Pt Level 4 (86994) Diagnoses Recurrent UTI (urinary tract infection) N39.0 Hematuria R31.9 Bilateral kidney stones N20.0 CPT Codes Post Residual Void - PVR CPT Code: 99247-Sapq Void Residual by ultrasound ([id number])
== END 2024-07-27 15:30 | disposition home or self-care (01) ==
PROVIDERS: PCP Internal Medicine Geriatric Medicine; Visit Provider Urology
DX: N39.0 Urinary tract infection, site not specified (principal); R31.9 Hematuria, unspecified; N20.0 Calculus of kidney; Z13.9 Encounter for screening, unspecified
CPT/HCPCS: 99204

== ENCOUNTER 2024-07-27 14:51 | Outpatient (REF) | payer OTHER, SELFPAY ==
[2024-07-27 16:26] LABS: Urine Cytology See Pathology rpt
== END 2024-07-27 14:52 | disposition home or self-care (01) ==
LOC: HO.LNP 14:51
PROVIDERS: PCP Internal Medicine Geriatric Medicine; Visit Provider Urology
DX: N39.0 Urinary tract infection, site not specified (principal); R31.9 Hematuria, unspecified; N20.0 Calculus of kidney
CPT/HCPCS: 51798; 81003; 87086; 88112; 99202

== ENCOUNTER 2024-09-19 09:33 | Outpatient (REF) | payer OTHER, SELFPAY ==
--- NOTE | ~2024-09-19 | CT_ITS ---
CT/CT urogram IMPRESSION: Nonobstructing nephrolithiasis, right kidney. Bilateral subcentimeter renal cysts. Hepatomegaly and hepatic steatosis. Electronically signed by: Larry Benton MD 09/19/2024 10:41 AM [facility]
[2024-09-19] MEDS: iohexoL 350 MG/ML 100 ML INFUS..BTL IV (10:18)
[2024-09-19 10:26] LABS: Creatinine POC 0.7 mg/dL (0.5-1.4); GFR POC > 60
== END 2024-09-19 09:34 | disposition home or self-care (01) ==
LOC: HO.CT 09:33
PROVIDERS: PCP Internal Medicine Geriatric Medicine; Visit Provider Urology
DX: R31.9 Hematuria, unspecified (principal); N39.0 Urinary tract infection, site not specified
CPT/HCPCS: 74178; 82565; Q9967

== ENCOUNTER → 2024-09-19 09:35 | Outpatient (BNV) | payer OTHER, SELFPAY | PROVIDERS: PCP Internal Medicine Geriatric Medicine; Visit Provider Radiology Diagnostic Radiology | DX: N20.0 Calculus of kidney (principal) | CPT/HCPCS: 74178 ==

== ENCOUNTER → 2024-10-03 06:48 | Day surgery (SDC) | payer OTHER, SELFPAY ==
[2024-09-29 13:27] VITALS: BMI 25.6
--- NOTE | 2024-10-02 09:41 | HO.ANESPROP2 ---
HPI - Anesthesia Eval Consult details Narrative: 69yo F for Cystoscopy Hydrodistention of Bladder PMFSH Active Problems Active Problems: All Active Problems Bilateral kidney stones (Acute) Hematuria (Acute) Recurrent UTI (urinary tract infection) (Acute) Renal casts (Acute) Bipolar disorder with depression (Acute) Diverticulitis (Acute) Abdominal cramping (Acute) Small bowel motility disorder (Acute) Ileus (Acute) GERD (gastroesophageal reflux disease) (Acute) Chronic idiopathic constipation (Acute) Malu infection, disseminated (Acute) Nausea and vomiting (Acute) LUQ pain (Acute) Past Medical History Medical History Schizophrenia Irritable bowel syndrome with constipation Anemia Ileus Tubular adenoma of colon History of pancreatitis Diverticulitis GERD (gastroesophageal reflux disease) Chronic idiopathic constipation Family History Family History Father No problems noted. Mother Diabetes Melanoma Family history of hypertension Family history of diabetes mellitus Surgical History Surgical History History of esophagogastroduodenoscopy (EGD) Hx of colonoscopy History of Problems with Anesthesia: No Social History Social History Household Members: Significant Other Housing: House Do you presently have visiting nurse or other home services: Yes (Visiting nurse. [facility] services) Alcohol intake: never Patient Tobacco Use Status: Never used Tobacco Second Hand Smoke Exposure: No service: No Current occupational status: disabled Sexual orientation: Straight/Heterosexual Meds Allergies Allergy/AdvReac Type Severity Reaction Status Date / Time No Known Allergies Allergy Verified 07/27/24 14:57 [No Known Allergies*] Home Medications ?Medication ?Instructions ?Recorded ?Confirmed ?Last Taken ?Type brimonidine 0.2 %-timolol 0.5 % 1 drp ophthalmic-Right BID 12/13/21 07/27/24 3 Days Ago History eye drops (Combigan) ~04/16/24 latanoprost 0.005 % eye drops 1 drp ophthalmic (eye) BID 11/10/22 07/27/24 3 Days Ago History ~04/16/24 alprazolam 1 mg tablet 1 mg PO QID PRN 07/11/24 07/27/24 Unknown History famotidine 40 mg tablet 40 mg PO BEDTIME 07/11/24 07/27/24 Unknown History hydroxyzine pamoate 50 mg capsule 50 mg PO BID PRN 07/11/24 07/27/24 Unknown History methylphenidate HCl 20 mg 20 mg PO BID 07/11/24 07/27/24 Unknown History tablet,extended release metoclopramide HCl 10 mg tablet mg PO 07/11/24 07/27/24 Unknown History quetiapine 400 mg tablet,extended mg PO 07/11/24 07/27/24 Unknown History release 24 hr venlafaxine 75 mg capsule,extended mg PO BID 07/11/24 07/27/24 Unknown History release 24 hr zolpidem 10 mg tablet 10 mg PO BEDTIME PRN 07/11/24 07/27/24 Unknown History Exam Height,Weight and Vital Signs: Height 5 ft 2 in Weight 63.39 kg Pertinent Lab Results Pertinent Lab Results: Laboratory Tests 04/19/24 04/22/24 21:23 07:32 WBC 6.7 Hgb 11.4 L Hct 34.1 L Plt Count 300 Sodium 142 Potassium 3.7 Chloride 108 Carbon Dioxide 26 BUN 17 H Creatinine 1.07 Narrative Narrative: EKG 04/2024 Vent. Rate : 096 BPM Atrial Rate : 096 BPM P-R Int : 178 ms QRS Dur : 078 ms QT Int : 360 ms P-R-T Axes : 058 099 081 degrees QTc Int : 454 ms Normal sinus rhythm Rightward axis Nonspecific T wave abnormality Abnormal ECG When compared with ECG of 12-DEC-2021 20:06, No significant change was found Assessment and Plan Assessment Anesthesia Assessment: Chart Reviewed Final Anesthetic Review History of Problems with Anesthesia: No
[2024-10-03 08:10] VITALS: BP 129/74; PULSE 110; RESP 18; TEMP 36.7; O2SAT 96; BMI 14.6
[2024-10-03 08:27] LABS: Glucose, Whole Blood 376 mg/dL (60-115)
--- NOTE | 2024-10-03 08:50 | PC.NURSE ---
patient POC 376, Dr Wolfe and Dr Nicola Smith notified via [employer]. Both MD at bedside with patient. Per anesthesia Dr. Wolfe patient to be evaluated in ER for POC, MD reported to ED MD. Report given to [facility] ED bag bundler.
== END ==
LOC: HO.SSS 06:48
PROVIDERS: PCP Internal Medicine Geriatric Medicine; Visit Provider Urology
DX: R31.9 Hematuria, unspecified (principal); Z53.8 Procedure and treatment not carried out for other reasons
CPT/HCPCS: 82947; J0690; J1644; J2003; J2704; J2795; J3010

== ENCOUNTER 2024-10-03 09:03 | Emergency (ER) | payer OTHER, SELFPAY ==
--- NOTE | 2024-10-03 09:15 | ED_ITS ---
HPI - General Adult General Chief complaint: Recheck/Abnormal Lab/Rx Stated complaint: elv BS Time Seen by Provider: 10/03/24 09:12 Source: patient Mode of arrival: ambulatory Limitations: no limitations History of Present Illness HPI narrative: THIS IS A 69 YEARS OLD THE PATIENT SHE WAS IN THE OPERATING ROOM TO HAVE CYSTOSCOPY SHE WAS SENT TO THE EMERGENCY ROOM BECAUSE ELEVATED BLOOD SUGAR. PATIENT HAS A HISTORY OF TYPE 2 DIABETES, SHE TAKES METFORMIN. SHE HAS NO COMPLAINT BUT ELEVATED BLOOD SUGAR Onset (ago): hour(s) (2) Radiation: non-radiation Severity: moderate Pain Consistency: constant Relieving factors: none Exacerbating factors: none Associated symptoms: denies other symptoms Related Data Home Medications ?Medication ?Instructions ?Recorded ?Confirmed brimonidine 0.2 %-timolol 0.5 % 1 drp ophthalmic-Right BID 12/13/21 07/27/24 eye drops (Combigan) latanoprost 0.005 % eye drops 1 drp ophthalmic (eye) BID 11/10/22 07/27/24 alprazolam 1 mg tablet 1 mg PO QID PRN 07/11/24 07/27/24 famotidine 40 mg tablet 40 mg PO BEDTIME 07/11/24 07/27/24 hydroxyzine pamoate 50 mg capsule 50 mg PO BID PRN 07/11/24 07/27/24 methylphenidate HCl 20 mg 20 mg PO BID 07/11/24 07/27/24 tablet,extended release metoclopramide HCl 10 mg tablet mg PO 07/11/24 07/27/24 quetiapine 400 mg tablet,extended mg PO 07/11/24 07/27/24 release 24 hr venlafaxine 75 mg capsule,extended mg PO BID 07/11/24 07/27/24 release 24 hr zolpidem 10 mg tablet 10 mg PO BEDTIME PRN 07/11/24 07/27/24 Previous Rx's ?Medication ?Instructions ?Recorded sennosides 8.6 mg tablet (senna) 17.2 mg (2 x 8.6 mg) PO BEDTIME 12/21/23 constipation #60 tabs prucalopride 2 mg tablet 2 mg PO DAILY #30 tabs 03/07/24 (Motegrity) bisacodyl 5 mg tablet,delayed 10 mg (2 x 5 mg) PO BEDTIME #60 04/25/24 release tabs dicyclomine 10 mg capsule 10 mg PO QID #120 caps 04/25/24 prazosin 2 mg capsule 6 mg (3 x 2 mg) PO BEDTIME #90 caps 04/25/24 tamsulosin 0.4 mg capsule 0.4 mg PO DAILY #30 caps 07/11/24 tenapanor 50 mg tablet (Ibsrela) 50 mg PO BID #60 tabs 07/11/24 doxycycline hyclate 100 mg tablet 100 mg PO BID 10 days #20 tabs 07/27/24 simethicone 180 mg capsule 180 mg PO QID #120 caps 08/04/24 polyethylene glycol 3350 17 17 g PO DAILY #238 grams 09/11/24 gram/dose oral powder linaclotide 290 mcg capsule 290 mcg PO DAILY #30 caps 09/28/24 (Linzess) rabeprazole 20 mg tablet,delayed 20 mg PO BID #60 tabs 09/28/24 release hozczr-lvdsoszo-jawkfml 1 cap PO QID #100 caps 10/03/24 24,000-76,000-120,000 unit capsule,delayed rel (Creon) Allergies Allergy/AdvReac Type Severity Reaction Status Date / Time No Known Allergies Allergy Verified 10/03/24 09:19 [No Known Allergies*] Review of Systems 2 Constitutional: Constitutional: Reports no additional constitutional complaints Cardiovascular: Cardiovascular: Reports no additional cardiovascular complaints [facility] Past Medical History [facility] Narrative: TYPE 2 DIABETES, BIPOLAR DISORDER, DIVERTICULITIS, GERD THE Medical History Schizophrenia Irritable bowel syndrome with constipation Anemia Ileus Tubular adenoma of colon History of pancreatitis Diverticulitis GERD (gastroesophageal reflux disease) Chronic idiopathic constipation Surgical History History of esophagogastroduodenoscopy (EGD) Hx of colonoscopy Family History Family History Father No problems noted. Mother Diabetes Melanoma Family history of hypertension Family history of diabetes mellitus Social History Social History Household Members: Significant Other Housing: House Are you a primary social worker palliative care to a significant other at home: No Do you presently have visiting nurse or other home services: No Alcohol intake: never Patient Tobacco Use Status: Never used Tobacco Second Hand Smoke Exposure: No Advance Directives: Yes Advance Directives Information Provided: Yes Advance Directives on File: No Do you have a plan to hurt others: No Plan service: No Current occupational status: disabled Sexual orientation: Straight/Heterosexual Physical Exam ED Vital Signs: Vital Signs - 24 hr 10/03/24 09:17 10/03/24 10:11 10/03/24 12:46 Temperature 97.6 F 97.6 F 98.0 F Pulse Rate 102 H 98 99 Respiratory Rate 16 12 12 Blood Pressure 117/72 125/78 124/83 Pulse Oximetry 96 96 97 Oxygen Delivery Method Room Air Room Air Room Air BMI result Body Mass Index 26.4 NO ACUTE DISTRESS COMFORTABLE Const General: cooperative Nutritional Appearance: well nourished Orientation/consciousness: patient oriented x3 Limitations: no limitations HENMT Head: Yes normal to inspection Ears: hearing grossly normal bilaterally General nose exam: Normal external nose present Face and sinus: Yes normal facial exam Mouth: Normal oral and palatal mucosa present Teeth and gingiva: dentition normal Throat: Yes posterior oropharynx normal Neck Neck: Yes normal visual inspection Carotids: normal carotid upstroke Chest Chest palpation & inspection: normal inspection of the chest Resp Effort & Inspection: normal respiratory effort Auscultation: clear to auscultation bilaterally Cardio Jugular venous distension: no JVD Rate: regular rate Rhythm: regular rhythm GI Inspection: Yes normal to inspection Palpation (GI): Soft to palpation Auscultation: normal bowel sounds Skin General skin exam: no rashes or lesions noted Lesions: no lesions Rashes: no rashes Neuro General: patient oriented x3 Cranial nerves: Yes CN's II-XII intact bilaterally Gait exam (Neuro): Normal gait present Motor exam (neuro): 5/5 motor strength present throughout Course Reevaluation(s) Reevaluation #1: On re-examination doing better potassium corrected, blood sugar 245 normal gap anticipate discharge Time: 13:33 Medications Administered Discontinued Medications Generic Name Dose Route Start Last Admin Trade Name Freq PRN Reason Stop Dose Admin Sodium Chloride 1,000 mls @ 999 mls/hr 10/03/24 09:15 10/03/24 11:36 Ns IVCONT 10/03/24 10:15 Infused .Q1H1M ARETHA Infusion Sodium Chloride 1,000 mls @ 999 mls/hr 10/03/24 09:15 10/03/24 11:36 Ns IVCONT 10/03/24 10:15 Infused .Q1H1M ARETHA Infusion Metformin HCl 1,000 mg 10/03/24 09:14 10/03/24 10:19 Metformin Hcl 1,000 Mg Tablet PO 10/03/24 09:15 1,000 mg ONCE ONE Administration Potassium Chloride 40 meq 10/03/24 10:10 10/03/24 10:19 Potassium Chloride Er 20 Meq Tab.Er.Prt PO 10/03/24 10:11 40 meq ONCE ONE Administration Potassium Chloride 40 meq 10/03/24 10:11 10/03/24 11:05 Potassium Chloride Er 20 Meq Tab.Er.Prt PO 10/03/24 10:12 40 meq ONCE ONE Administration Medical Decision Making Medical Decision Making [facility] Narrative: Patient was sent to the emergency department by OR because elevated blood sugar found also to be hypokalemic we will administer IV fluid correct K Differential Diagnosis Differential Diagnoses: The differential diagnosis associated with the presentation includes DKA/dehydration Admission/Observation Consideration of admission/observation: Escalation of care including admission/observation considered Lab Data [facility] Lab Attestation statement: I reviewed the patient's lab results. 10/03/24 09:39 10/03/24 12:52 Labs: Lab Results 10/03/24 10/03/24 10/03/24 Range/Units 09:39 11:50 12:52 WBC 6.9 (4.8-10.8) X10*3/uL RBC 3.61 L (4.20-5.50) X10*6/uL Hgb 9.7 L (12.0-16.0) g/dl Hct 29.9 L (37.0-47.0) % MCV 82.8 (80.0-98.0) fL MCH 26.9 L (27.0-33.0) pg MCHC 32.4 (31.0-35.0) g/dl RDW 12.2 (11.0-16.0) % Plt Count 194 D (160-400) X10*3/uL MPV 12.0 (9.4-12.3) fL Immature Gran % (Auto) 0.3 (0.0-0.4) % Neut % (Auto) 62.3 (45-73) % Lymph % (Auto) 27.8 (20-40) % [place] % (Auto) 7.3 (2-11) % Eos % (Auto) 1.7 (0-4) % Baso % (Auto) 0.6 (0-2) % Lymph # (Auto) 1.9 (1.2-4.9) X10*3/uL [place] # (Auto) 0.5 (0.1-1.2) X10*3/uL Eos # (Auto) 0.1 (0.0-0.4) X10*3/uL Baso # (Auto) 0.0 (0.0-0.2) X10*3/uL Abs Immat Gran (auto) 0.02 (0.00-0.03) X10*3/uL Absolute Neuts (auto) 4.3 (2.0-8.3) x10*3/uL Absolute Nucleated RBC 0.000 (0.0-0.012) X10*3/uL Nucleated RBC % (auto) 0.0 (0.0-0.2) /100WBC Sodium 140 142 (135-145) mmol/L Potassium 2.6 L* D 4.1 D (3.3-5.1) mmol/L Chloride 119 H 115 H (96-108) mmol/L Carbon Dioxide 15 L 18 L (22-29) mmol/L Anion Gap 9 L 13 (12-20) BUN 14 14 (9-16) mg/dL Creatinine 0.67 0.80 (0.5-1.4) mg/dL Estim Creat Clear Calc 69.5 58.2 Estimated GFR > 60 > 60 POC Glucose 227 H (60-115) mg/dL Random Glucose 261 H 245 H (60-115) mg/dL Calcium 6.5 L D 8.2 L D (8.4-10.2) mg/dL Total Bilirubin 0.2 (0.0-1.0) mg/dL AST 12 (5-31) U/L ALT 12 (0-31) U/L Alkaline Phosphatase 77 (39-117) U/L Total Protein 4.4 L (6.5-8.0) g/dL Albumin 2.7 L (3.5-5.0) g/dL External Record Review External record reviewed: Inpatient record Discharge Plan Discharge Clinical Impression: Hyperglycemia, Acute hypokalemia Patient Disposition: Home, Self-Care Instructions: Hypokalemia (ED), Diabetic Hyperglycemia (ED) Additional Instructions: Follow-up with your primary care physician return to the emergency room if you worse any concern Prescriptions: No Action Motegrity 2 mg tablet 2 mg PO DAILY Qty: 30 0RF simethicone 180 mg capsule 180 mg PO QID Qty: 120 0RF polyethylene glycol 3350 17 gram/dose powder 17 g PO DAILY Qty: 238 0RF Linzess 290 mcg capsule 290 mcg PO DAILY Qty: 30 0RF rabeprazole 20 mg tablet,delayed release (DR/EC) 20 mg PO BID Qty: 60 0RF Creon 24,000-76,000 -120,000 unit capsule,delayed release(DR/EC) 1 cap PO QID Qty: 100 0RF brimonidine-timolol [Combigan] 0.2-0.5 % drops 1 drp ophthalmic-Right BID dicyclomine 10 mg Capsule 10 mg PO QID Qty: 120 0RF bisacodyl 5 mg Tablet,Delayed Release (Dr/Ec) 10 mg PO BEDTIME Qty: 60 0RF prazosin 2 mg Capsule 6 mg PO BEDTIME Qty: 90 0RF latanoprost 0.005 % drops 1 drp ophthalmic (eye) BID sennosides [senna] 8.6 mg tablet 17.2 mg PO BEDTIME Qty: 60 6RF zolpidem 10 mg tablet 10 mg PO BEDTIME PRN alprazolam 1 mg tablet 1 mg PO QID PRN famotidine 40 mg tablet 40 mg PO BEDTIME venlafaxine 75 mg capsule,extended release 24hr PO BID methylphenidate HCl 20 mg tablet extended release 20 mg PO BID metoclopramide HCl 10 mg tablet PO quetiapine 400 mg tablet extended release 24 hr PO hydroxyzine pamoate 50 mg capsule 50 mg PO BID PRN Ibsrela 50 mg tablet 50 mg PO BID Qty: 60 6RF Rx Instructions: must administer immediately before first meal of day/breakfast and dinner tamsulosin 0.4 mg capsule 0.4 mg PO DAILY Qty: 30 3RF doxycycline hyclate 100 mg tablet 100 mg PO BID 10 Days Qty: 20 0RF Referrals: Name,MD Ham [Primary Care Provider] - 2 days Print Language: Austrian
[2024-10-03 09:17] VITALS: BP 117/72; PULSE 102; RESP 16; TEMP 36.4; O2SAT 96; BMI 26.4
[2024-10-03] MEDS: 0.9 % Sodium Chloride 1,000 ML 999 ML IVCONT ×2 (09:20→10:06)
[2024-10-03 09:48] LABS: MANUAL DIFF FLAG NO
[2024-10-03 09:53] LABS: Basophils Percent Auto 0.6 % (0-2); Eosinophils Absolute Auto 0.1 X10*3/uL (0.0-0.4); Eosinophils Percent Auto 1.7 % (0-4); Hematocrit 29.9 % (37.0-47.0); Hemoglobin 9.7 g/dl (12.0-16.0); Imm Gran Abs Auto 0.02 X10*3/uL (0.00-0.03); Imm Gran Pct Auto 0.3 % (0.0-0.4); Lymphocytes Absolute Auto 1.9 X10*3/uL (1.2-4.9); Lymphocytes Percent Auto 27.8 % (20-40); Mean Corpuscular HGB Conc 32.4 g/dl (31.0-35.0); Mean Corpuscular Hemoglobin 26.9 pg (27.0-33.0); Mean Corpuscular Volume 82.8 fL (80.0-98.0); Monocytes Absolute Auto 0.5 X10*3/uL (0.1-1.2); Monocytes Percent Auto 7.3 % (2-11); Neutrophils Absolute Auto 4.3 x10*3/uL (2.0-8.3); Neutrophils Percent Auto 62.3 % (45-73); Platelet Count 194 X10*3/uL (160-400); Red Blood Count 3.61 X10*6/uL (4.20-5.50); Red Cell Distribution Width 12.2 % (11.0-16.0); White Blood Count 6.9 X10*3/uL (4.8-10.8)
[2024-10-03 10:07] LABS: Alanine Aminotransferase 12 U/L (0-31); Albumin Level 2.7 g/dL (3.5-5.0); Alkaline Phosphatase 77 U/L (39-117); Anion Gap 9 (12-20); Aspartate Amino Transferase 12 U/L (5-31); Bilirubin Total 0.2 mg/dL (0.0-1.0); Blood Urea Nitrogen 14 mg/dL (9-16); Calcium 6.5 mg/dL (8.4-10.2); Carbon Dioxide 15 mmol/L (22-29); Chloride 119 mmol/L (96-108); Creatinine Clr Calc Pharmacy 69.5; Estimated Glomerular Filt Rate > 60; Glucose Random 261 mg/dL (60-115); Potassium 2.6 mmol/L (3.3-5.1); Sodium 140 mmol/L (135-145); Total Protein 4.4 g/dL (6.5-8.0)
[2024-10-03 10:11] VITALS: BP 125/78; PULSE 98; RESP 12; TEMP 36.4; O2SAT 96
[2024-10-03] MEDS: metFORMIN HCl 1,000 MG TABLET 1000 MG PO (10:19)
[2024-10-03] MEDS: Potassium Chloride ER 20 MEQ TAB.ER.PRT 40 MEQ PO ×2 (10:19→11:05)
--- OUTSIDE RECORDS SUMMARY | 2024-10-03 10:38 | XMS_ITS | Encounter Summary ---
Author Organization [employer] Address [address] [place] [address] 7 [place] [address] Care Team Providers Care Brick Maker Name Role Phone Name, Ham HERRING Primary Care Provider [phone] Encounter Details Date Type Department Care Team (Late st Contact Info) Description 07/14/2022 Abstract [facility] MEDICINE [address] [place] [address] Provider, MD Meghan Social History Tobacco Use Types Packs/Day Years Used Date Smoking Tobacco: Never Assessed Comments Unknown Sex and Gender Information Value Date Recorded Sex Assigned at Female 06/08/2022 10:17 AM EDT Legal Sex Female 10:17 AM EDT Gender Identity Female 06/08/2022 10:17 AM EDT Sexual Orientation Straight 06/08/2022 10 :17 AM EDT documented as of this encounter Plan of Treatment Upcoming Encounters Date Type Department Care Team (Late st Contact Info) Description 12/12/2024 10:45 AM EDT Office Visit [facility] MEDICINE [address] [place] [phone] NameHam MD [address] [place] [address] documented as of this encounter Visit Diagnoses Not on filedocumented in this encounter Care Teams Brick Maker Relationship Specialty Start Date End Date Ham Hay MD [address] [place] [phone] PCP - General Family Medicine 01/28/16 documented as of this encounter
--- OUTSIDE RECORDS SUMMARY | 2024-10-03 10:38 | XMS_ITS | Encounter Summary ---
Author Organization [employer] Address [address] [place] [address] [address] [place] [address] Care Team Providers Care Gis Mapping Technician Name Role Phone Name, Ham HERRING Primary Care Provider [phone] Encounter Details Date Type Department Care Team (Late st Contact Info) Description 10/03/2024 Orders Only GENERIC EXTERNAL DATA DEPARTMENT Provider, Generic External Data Social History Tobacco Use Types Packs/Day Years Used Date Smoking Tobacco: Never Smokeless Tobacco: Never Alcohol Use Standard Drinks/Week Comments Never 0 (1 standard drink = 0.6 oz pur e alcohol) Depression Answer Date Recorded Patient Health Questionnaire-9 Score 24 05/17/2024 Patient Health Questionnaire-9 Score 24 05/17/2024 Last PHQ-9: Questionnaire Data Not on file 1 Housing Stability Answer Date Recorded What is your housing situation today? I have gracie belle 11/01/[address] you li ve. Do you have problems with any of the following? None of the above 11/01/2023 Food Insecurity Answer Date Recorded Within the past 12 months, y ou worried that your food would run out before you got money to buy more: Never True 11/01/2023 Within the past 12 months,th e food you bought just didn't last and you didn't have enough money to get more: Never True Transportation Answer Date Recorded In the past 12 months, has l ack of transportation kept you from medical appts, meetings, work or from getting things needed for daily living? No 11/01/2023 Utilities Answer Date Recorded In the past 12 months, has t he electric, gas, oil or water company threatened to shut off services in your home? No 11/01/2023 Depression Answer Date Recorded Patient Health Questionnaire-2 Score 5 05/17/2024 Comments Unknown Sex and Gender Information Value [...] Description 12/12/2024 10:45 AM EDT Office Visit [facility] MEDICINE [address] [place] [address] Name, MD Ham [address] [place] [address] documented as of this encounter Procedures Procedure Name Priority Date/Time Associated Diagnosis Comments CBC WITH AUTO DIFFERENTIAL Routine 10/03/2024 9:39 AM EST COMPREHENSIVE METABOLIC PANEL Routine 10/03/2024 9:39 AM EST GLUCOSE, WHOLE BLOOD Routine 10/03/2024 8:22 AM EST documented in this encounter Results * (ABNORMAL) Comprehensive Metabolic Panel (10/03/2024 9:39 AM EST) Sodium 140 135 - 145 mmol/L [facility] Potassium 2.6(LL) 3.3 - 5.1 mmol/L [facility] Comment:Critical value for P OTS: Results called to and read mariah SUMNER Person calling: FRANCIS Date: 10/03/24Time:1006 Chloride 119(H) 96 - 108 mmol/L [facility] Carbon Dioxide 15(L) 22 - 29 mmol/L [facility] Anion Gap 9(L) 12 - 20 [facility] Urea Nitrogen (BUN) 14 9 - 16 mg/dL [facility] Creatinine, Serum 0.67 0.5 - 1.4 mg/dL [facility] Creatinine Clr Calc Pharmacy 69.5 [facility] Comment:Provided height and weight: 154.94 cm,63.5 kg.eGFR (calculated from the MDRD study equation) and eCrCl(calculated from the Cockcroft-Gault equation) are based ondifferent parameters and may not yield comparable results.If eCrCl result is absurd, please check patient'sheight/weight. Estimated Glomerular Filt Rate >60 [facility] Comment:Chronic Kidney Disea se: Estimated GFR < 60 mL/min/1.06d9Nnnogi Kidney Disease: Estimated GFR < 15 mL/min/1.73m2 Glucose 261(H) 60 - 115 mg/dL [facility] Calcium 6.5(L) 8.4 - 10.2 mg/dL [facility] Bilirubin, Total 0.2 0.0 - 1.0 mg/dL [facility] Aspartate Amino Transferase 12 5 - 31 U/L [facility] Alanine Aminotransferase 12 0 - 31 U/L [facility] Total Protein 4.4(L) 6.5 - 8.0 g/dL [facility] Albumin Level 2.7(L) 3.5 - 5.0 g/dL [facility] Alkaline Phosphatase 77 39 - 117 U/L [facility] 10/03/2024 9:39 AM EST 10/03/2024 9:46 AM EST us Generic External Data Provider LAB BLOOD ORDERAB LES Final Result [facility] [address] [place] [phone] * (ABNORMAL) CBC auto differential (10/03/2024 9:39 AM EST) White Blood Count 6.9 4.8 - 10.8 X10*3/uL [facility] Red Blood Count 3.61(L) 4.20 - 5.50 X10*6/uL [facility] Hemoglobin 9.7(L) 12.0 - 16.0 g/dl [facility] Hematocrit 29.9(L) 37.0 - 47.0 % [facility] Mean Corpuscular Volume 82.8 80.0 - 98.0 fL [facility] Mean Corpuscular Hemoglobin 26.9(L) 27.0 - 33.0 pg [facility] Mean Corpuscular HGB Conc 32.4 31.0 - 35.0 g/dl [facility] Red Cell Distribution Width 12.2 11.0 - 16.0 % [facility] Platelet Count 194 160 - 400 X10*3/uL [facility] Mean Platelet Volume 12.0 9.4 - 12.3 fL [facility] Neutrophils Percent Auto 62.3 45 - 73 % [facility] Imm Gran Pct Auto 0.3 0.0 - 0.4 % [facility] Lymphocytes Percent Auto 27.8 20 - 40 % [facility] Monocytes Percent Auto 7.3 2 - 11 % [facility] Eosinophils Percent Auto 1.7 0 - 4 % [facility] Basophils Percent Auto 0.6 0 - 2 % [facility] NRBC Pct Auto 0.0 0.0 - 0.2 /100WBC [facility] Neutrophils Absolute Auto 4.3 2.0 - 8.3 x10*3/uL [facility] Imm Gran Abs Auto 0.02 0.00 - 0.03 X10*3/uL [facility] Lymphocytes Absolute Auto 1.9 1.2 - 4.9 X10*3/uL [facility] Monocytes Absolute Auto 0.5 0.1 - 1.2 X10*3/uL [facility] Eosinophils Absolute Auto 0.1 0.0 - 0.4 X10*3/uL [facility] Basophils Absolute Auto 0.0 0.0 - 0.2 X10*3/uL [facility] NRBC Abs Auto 0.000 0.0 - 0.012 X10*3/uL [facility] 10/03/2024 9:39 AM EST 10/03/2024 9:46 AM EST us Generic External Data Provider LAB BLOOD ORDERAB LES Final Result [facility] [address] [place] [phone] [phone] * (ABNORMAL) Glucose, Whole Blood (10/03/2024 8:22 AM EST) Glucose, Whole Blood 376(HH) 60 - 115 mg/dL [facility] Comment:METER #: [id number] 10/03/2024 8:22 AM EST 10/03/2024 8:26 AM EST us Generic External Data Provider LAB BLOOD ORDERAB LES Final Result [facility] [address] [place] [address] [phone] documented in this encounter Visit Diagnoses Not on filedocumented in this encounter Additional Health Concerns Assessment Noted Time PHQ-9 Depression Total Score: 24 024 11:40 AM EDT documented as of this encounter Care Teams Gis Mapping Technician Relationship Specialty Start Date End Date Name, MD Ham [address] [place] [address] PCP - General Family Medicine 01/28/16 documented as of this encounter
--- OUTSIDE RECORDS SUMMARY | 2024-10-03 10:38 | XMS_ITS | Encounter Summary ---
Author Organization [employer] Address [address] [place] [address] 7 [place] [address] Care Team Providers Care Head Bucker Name Role Phone Name, Ham HERRING Primary Care Provider [phone] Reason for Visit * Reason Onset Date Comments FYI 04/21/2024 Encounter Details Date Type Department Care Team ([facility] st Contact Info) Description 04/21/2024 Telephone [facility] MEDICINE [address] [place] [address] Name, MD Ham [address] [place] [address] FY Social History Tobacco Use Types Packs/Day Years Used Date Smoking Tobacco: Never Smokeless Tobacco: Never Alcohol Use Standard Drinks/Week Comments Never 0 (1 standard drink = 0.6 oz pur e alcohol) Depression Answer Date Recorded Patient Health Questionnaire-9 Score 11 11/01/2023 Patient Health Questionnaire-9 Score 11 11/01/2023 Last PHQ-9: Questionnaire Data Not on file 0 11/01/2023 Housing Stability Answer Date Recorded What is [...] Answer Date Recorded Patient Health Questionnaire-2 Score 6 11/01/2023 Comments Unknown Sex and Gender Information Value Date Recorded Sex Assigned at Female 06/08/2022 10:17 AM EDT Legal Sex Female 10:17 AM EDT Gender Identity Female 06/08/2022 10:17 AM EDT Sexual Orientation Straight 06/08/2022 10 :17 AM EDT documented as of this encounter Miscellaneous Notes * Telephone Encounter - Case Wong - 04/21/2024 3:49 PM EDT Tc from [facility] calling to inform pcp pt has been admitted into hospital. If any questions you can contact [facility] at [phone]. documented in this encounter Plan of Treatment Upcoming Encounters Date Type Department Care Team (Late st Contact Info) Description 12/12/2024 10:45 AM EDT Office Visit [facility] MEDICINE [address] [place] [address] Name, MD Ham [address] [place] [address] documented as of this encounter Visit Diagnoses Not on filedocumented in this encounter Additional Health Concerns Assessment Noted Time PHQ-9 Depression Total Score: 11 024 3:36 PM EDT documented as of this encounter Care Teams Head Bucker Relationship Specialty Start Date End Date Name, MD Ham [address] [place] [address] PCP - General Family Medicine 01/28/16 documented as of this encounter
--- OUTSIDE RECORDS SUMMARY | 2024-10-03 10:38 | XMS_ITS | Encounter Summary ---
Author Organization [employer] Address [address] [place] [address] 7 [place] [address] Care Team Providers Care Associate Software Engineer Name Role Phone Name, Ham HERRING Primary Care Provider [phone] Reason for Visit * Reason Onset Date Comments Nurse Triage 09/22/2024 Encounter Details Date Type Department Care Team ([facility] st Contact Info) Description 09/22/2024 Telephone [facility] MEDICINE [address] [place] [address] Name, MD Ham [address] [place] [address] Nurse Triage Social History Tobacco Use Types Packs/Day Years [...] encounter Miscellaneous Notes * Telephone Encounter - Gisselle Amaral RN - 09/22/2024 11:55 AM EST Call returned to [facility] to triage below. Reports having lower back pain and urgency. Per pt has appt with Urology 10/03/24. Per pt sx recurring 2 weeks ago. Denies any dark color or bloody urine. Has foul odor. Denies any vomitng or fever. Severe nausea. Pt advised of disposition, agrees to sick on site with blue team provider today. Protocol Used: Urinary Symptoms (Adult) Protocol-Based Disposition: See in Office or Video Visit Today Future Appointments Date Time Provider Department Center 09/22/2024 3:45 PM [facility] Insurance verified as active per Real Time Eligibility in [facility]. Video visit offer not recorded Positive Triage Questions: * Side (flank) or lower back pain present * Bad or foul-smelling urine * Urinating more frequently than usual (i.e., frequency) OR new-onset of the feeling of an urgent need to urinate (i.e., urgency) * All higher-acuity triage questions were negative Care Advice Discussed: * Reasons To Call Back - Pain or burning with urination - Unable to urinate and bladder feels full - You become worse * Telephone Encounter - Gisselle Amaral RN - 09/22/2024 11:50 AM EST Call returned to Makenna Mcintosh for triage below. No answer LVM to return call to [facility] triage line [phone]. * Telephone Encounter - Juan C Andino - 09/22/2024 11:40 AM EST Symptoms: Vaginal Symptoms - Not Bleeding, Back Pain - Not From Injury, Abdominal Pain - Female - Not Outcome: Schedule an appointment to be seen within 24 hours Reason: Caller denied all higher acuity questions The caller accepted this outcome. documented in this encounter Plan of Treatment Upcoming Encounters Date Type Department Care Team (Late st Contact Info) Description 12/12/2024 10:45 AM EDT Office Visit [facility] MEDICINE [address] [place] [address] Name, MD Ham [address] [place] [address] documented as of this encounter Visit Diagnoses Not on filedocumented in this encounter Additional Health Concerns Assessment Noted Time PHQ-9 Depression Total Score: 24 024 11:40 AM EDT documented as of this encounter Care Teams Associate Software Engineer Relationship Specialty Start Date End Date NameHam MD [address] [place] [address] PCP - General Family Medicine 01/28/16 documented as of this encounter
--- OUTSIDE RECORDS SUMMARY | 2024-10-03 10:38 | XMS_ITS | Encounter Summary ---
Author Organization [employer] Address [address] [place] [address] 7 [place] [address] Care Team Providers Care Computer Forensics Analyst Name Role Phone Name, Ham HERRING Primary Care Provider [phone] Reason for Visit * Reason Onset Date Comments No Show 09/22/2024 Encounter Details Date Type Department Care Team ([facility] st Contact Info) Description 09/22/2024 Telephone [facility] MEDICINE [address] [place] [address] Name, MD Ham [address] [place] [address] No Show Social History Tobacco Use Types Packs/Day Years [...] encounter Miscellaneous Notes * Telephone Encounter - Birdie Bazan RN - 09/22/2024 4:31 PM EST TC placed to pt via S wire drawing die maker (Jonathan ID#[id number]) as pt missed sick onsite for urinary urgency, foul odor and low back pain x 2 weeks. Hx of recurrent UTI on 09/22/24 with Maryanne Todd. No answer, LVM to call office back and ask to speak to blue team nurses. * Telephone Encounter - Dora Lee - 09/22/2024 4:03 PM EST Patient no show to SICK ONSITE appointment on 09/22/24 with Maryanne Todd. documented in this encounter Plan of Treatment Upcoming Encounters Date Type Department Care Team (Late st Contact Info) Description 12/12/2024 10:45 AM EDT Office Visit [facility] MEDICINE [address] [place] [address] Name, MD Ham [address] [place] [address] documented as of this encounter Visit Diagnoses Not on filedocumented in this encounter Additional Health Concerns Assessment Noted Time PHQ-9 Depression Total Score: 24 024 11:40 AM EDT documented as of this encounter Care Teams Computer Forensics Analyst Relationship Specialty Start Date End Date Name, MD Ham [address] [place] [address] PCP - General Family Medicine 01/28/16 documented as of this encounter
--- OUTSIDE RECORDS SUMMARY | 2024-10-03 10:38 | XMS_ITS | Encounter Summary ---
Author Organization [employer] Address [address] [place] [address] 7 [place] [address] Care Team Providers Care Principal System Software Engineer Name Role Phone Name, Ham HERRING Primary Care Provider [phone] Reason for Visit * Reason Comments Med Refill Encounter Details Date Type Department Care Team ([facility] st Contact Info) Description 05/30/2024 Refill [facility] MEDICINE [address] [place] [address] Name, MD Ham [address] [place] [address] Social History Tobacco Use Types Packs/Day Years [...] Description 12/12/2024 10:45 AM EDT Office Visit [facility] MEDICINE [address] [place] [address] Name, MD Ham [address] [place] [address] documented as of this encounter Visit Diagnoses Not on filedocumented in this encounter Additional Health Concerns Assessment Noted Time PHQ-9 Depression Total Score: 24 024 11:40 AM EDT documented as of this encounter Care Teams Principal System Software Engineer Relationship Specialty Start Date End Date NameHam MD [address] [place] [address] PCP - General Family Medicine 01/28/16 documented as of this encounter
--- OUTSIDE RECORDS SUMMARY | 2024-10-03 10:38 | XMS_ITS | Encounter Summary ---
Author Organization [employer] Address [address] [place] [address] 7t [place] [address] Care Team Providers Care Wreath And Garland Maker Name Role Phone Name, Ham HERRING Primary Care Provider Encounter Details Date Type Department Care Team (Late st Contact Info) Description 09/19/2024 Orders Only [facility] External Provider, [facility] Social History Tobacco Use Types Packs/Day Years [...] Description 12/12/2024 10:45 AM EDT Office Visit [facility]ICINE [address] [facility] [place] [address] Name, MD Ham [address] [facility] [place] [address] documented as of this encounter Procedures Procedure Name Priority Date/Time Associated Diagnosis Comments CT UROGRAM WO CONTRAST Routine 09/19/2024 9:51 AM EST documented in this encounter Results * CT Urogram w/o Contrast (09/19/2024 9:51 AM EST) Anatomical Region Laterality Modality Ureter, Upper urinary tract Comp uted Tomography 09/19/2024 9:51 AM EST Narrative 09/19/2024 10:45 AM EST ? [facility] ?[address] ?[place] [address] ? CT Scan Report ? Signed ? Patient: Colon Chris,Makenna ?MR#: [id number] ?? [id number] ? : 1955 ?Acct:[id number] ? Age/Sex: 69 / F ?ADM Date: 09/19/24 ? Loc: HO.CT ? Attending Dr: Robert Hoffman MD ? Ordering Physician: Robert Hoffman MD ?? Date of Service: 09/19/24 ?? Procedure(s): CT urogram ?? Accession Number(s): [id number] ? cc: Robert Hoffman MD; Name,Ham HERRING ? Report Number: ?? [id number]: Total DLP = ??503.00 mGy-cm ?? EXAMINATION: ?? CT ABDOMEN AND PELVIS WITHOUT AND WITH CONTRAST ? CLINICAL INFORMATION: ?? Hematuria. ? COMPARISON: ?? December 12, 2021. ? TECHNIQUE: ?? Noncontrast CT of the abdomen and pelvis is performed followed by split ?? bolus contrast-enhanced images using 85 mL Omnipaque 350 contrast. ? Postcontrast imaging is performed during the combined nephrogram and ?? excretion phase. Sagittal and coronal reformatted images were obtained ?? on the technologist's workstation for both the precontrast and ?? postcontrast phases. ? This CT examination was performed using dose optimization techniques as ?? appropriate, variously including the following: ?? *Automated exposure control ?? *Adjustment of mA and/or kV according to patient size (this includes ?? techniques or standardized protocols for targeted exams where dose is ?? matched to indication/reason for exam; i.e. extremities or head) ?? *Use of iterative reconstruction technique ?? DLP: 503 mGy centimeter ? FINDINGS: ? LIVER, GALLBLADDER, AND BILIARY TREE: ?? Liver measures 17 cm. Decreased enhancement pattern involving mostly ?? the right hepatic lobe. No focal mass. No intrahepatic biliary ductal ?? dilatation. Main portal veins, hepatic veins and intrahepatic portion ?? of the IVC are patent. Focal sparing normal parenchyma of the left ?? hepatic lobe and caudate lobe ?? Status post cholecystectomy. ?? Common bile duct measures 5 mm. ? PANCREAS: No focal mass. No peripancreatic fluid collection. No main ?? pancreatic ductal dilatation. Fatty morphology pattern/density ?? involving the head and uncinate process. ? SPLEEN: 9 cm. No focal lesion. ? ADRENAL GLANDS: No nodular lesions. ? KIDNEYS AND URETERS: ? Right kidney: ? Multifocal punctate less than 1.5 mm calculi in the midportion and ?? lower pole of the pelvicalyceal system. ?? No hydronephrosis. Subcentimeter nonenhancing fluid density in the ?? lower pole. ?? No renal mass. ?? Normal enhancement pattern of the renal parenchyma with the normal ?? urinary excretion into the collecting system. ? Left kidney: ? No hydronephrosis. ?? No nephrolithiasis. ?? Subcentimeter cyst. ?? No enhancing mass. ?? Normal enhancement of the renal parenchyma and normal urinary excretion ?? into the collecting system. ? BLADDER: Fluid-filled nearly collapsed. ? GASTROINTESTINAL TRACT: ?? Abundant stool within the large intestine. No intestinal obstruction ?? pattern. ?? Collapsed appearance of the ascending colon versus less likely wall ?? thickening. ?? No pneumatosis intestinalis. ?? The cecum and ascending colon is within the right lower pelvis abutting ?? the superior margin of the bladder. ?? The appendix is normal. ? ABDOMINAL WALL: Small tiny fat-containing umbilical hernia. ? LYMPH NODES: Nonspecific prominent mesenteric lymph nodes. ? VASCULAR: No aneurysm or dissection, abdominal aorta. ? PELVIC VISCERA: No gross masses. ? OSSEUS STRUCTURES: Multilevel lower thoracic and lower lumbar ?? spondylosis more conspicuous at L5-S1. Nonspecific 5 mm lytic lesion at ?? S1. ? CT/CT urogram ?? IMPRESSION: ?? Nonobstructing nephrolithiasis, right kidney. ?? Bilateral subcentimeter renal cysts. ?? Hepatomegaly and hepatic steatosis. ? Electronically signed by: ??Larry Benton MD ??09/19/2024 10:41 AM ?? EST ? Dictated By: ?Larry Art MD ? Signed By: ?<Electronically signed by Larry Lo MD in OV> ? 09/19/24 1041 ? DD/ 0951 ? TD/TT: 09/19/24 1017 ? Log Manager: ? Procedure Note Thi, Image - 09/19/[address] [address] [address] Scan Report Signed Patient: Makenna Ortiz#: [id number] : 7Acct:[id number] Age/Sex: 69 / FADM Date: 09/19/24 Loc: HO.CT Attending Dr: Robert Hoffman MD Ordering Physician: Robert Hoffman MD Date of Service: 09/19/24 Procedure(s): CT urogram Accession Number(s): [id number] cc: Robert Hoffman MD; Name,Ham Report Number: [id number]: Total DLP = 503.00 mGy-cm EXAMINATION: CT ABDOMEN AND PELVIS WITHOUT AND WITH CONTRAST CLINICAL INFORMATION: Hematuria. COMPARISON: December 12, 2021. TECHNIQUE: Noncontrast CT of the abdomen and pelvis is performed followed by split bolus contrast-enhanced images using 85 mL Omnipaque 350 contrast. Postcontrast imaging is performed during the combined nephrogram and excretion phase. Sagittal and coronal reformatted images were obtained on the technologist's workstation for both the precontrast and postcontrast phases. This CT examination was performed using dose optimization techniques as appropriate, variously including the following: *Automated exposure control *Adjustment of mA and/or kV according to patient size (this includes techniques or standardized protocols for targeted exams where dose is matched to indication/reason for exam; i.e. extremities or head) *Use of iterative reconstruction technique DLP: 503 mGy centimeter FINDINGS: LIVER, GALLBLADDER, AND BILIARY TREE: Liver measures 17 cm. Decreased enhancement pattern involving mostly the right hepatic lobe. No focal mass. No intrahepatic biliary ductal dilatation. Main portal veins, hepatic veins and intrahepatic portion of the IVC are patent. Focal sparing normal parenchyma of the left hepatic lobe and caudate lobe Status post cholecystectomy. Common bile duct measures 5 mm. PANCREAS: No focal mass. No peripancreatic fluid collection. No main pancreatic ductal dilatation. Fatty morphology pattern/density involving the head and uncinate process. SPLEEN: 9 cm. No focal lesion. ADRENAL GLANDS: No nodular lesions. KIDNEYS AND URETERS: Right kidney: Multifocal punctate less than 1.5 mm calculi in the midportion and lower pole of the pelvicalyceal system. No hydronephrosis. Subcentimeter nonenhancing fluid density in the lower pole. No renal mass. Normal enhancement pattern of the renal parenchyma with the normal urinary excretion into the collecting system. Left kidney: No hydronephrosis. No nephrolithiasis. Subcentimeter cyst. No enhancing mass. Normal enhancement of the renal parenchyma and normal urinary excretion into the collecting system. BLADDER: Fluid-filled nearly collapsed. GASTROINTESTINAL TRACT: Abundant stool within the large intestine. No intestinal obstruction pattern. Collapsed appearance of the ascending colon versus less likely wall thickening. No pneumatosis intestinalis. The cecum and ascending colon is within the right lower pelvis abutting the superior margin of the bladder. The appendix is normal. ABDOMINAL WALL: Small tiny fat-containing umbilical hernia. LYMPH NODES: Nonspecific prominent mesenteric lymph nodes. VASCULAR: No aneurysm or dissection, abdominal aorta. PELVIC VISCERA: No gross masses. OSSEUS STRUCTURES: Multilevel lower thoracic and lower lumbar spondylosis more conspicuous at L5-S1. Nonspecific 5 mm lytic lesion at S1. CT/CT urogram IMPRESSION: Nonobstructing nephrolithiasis, right kidney. Bilateral subcentimeter renal cysts. Hepatomegaly and hepatic steatosis. Electronically signed by: Larry Benton MD 09/19/2024 10:41 AM [facility] Dictated By: Larry Art MD Signed By: <Electronically signed by Larry Lo MDin OV> 09/19/24 1041 DD/ 0951 TD/TT: 09/19/24 1017 Log Manager: [facility] External Provider IMG CT PROCEDURES Final Result documented in this encounter Visit Diagnoses Not on filedocumented in this encounter Additional Health Concerns Assessment Noted Time PHQ-9 Depression Total Score: 24 024 11:40 AM EDT documented as of this encounter Care Teams Wreath And Garland Maker Relationship Specialty Start Date End Date Name, MD Ham [address] [place] [address] PCP - General Family Medicine 01/28/16 documented as of this encounter
--- OUTSIDE RECORDS SUMMARY | 2024-10-03 10:38 | XMS_ITS | Encounter Summary ---
Author Organization [employer] Address [address] [facility] 7t [place] [address] Care Team Providers Care Ice Guard Tester Name Role Phone Name, Ham HERRING Primary Care Provider [phone] Reason for Visit * Reason Comments Med Refill Encounter Details Date Type Department Care Team ([facility] st Contact Info) Description 04/18/2024 Refill [facility] [address] [place], [place] [phone] Name, MD Ham [address] [place] [address] Acute herpes zoster neuropathy Social History Tobacco Use Types Packs/Day Years [...] 10:45 AM EDT Office Visit [facility] MEDICINE [address] [place] [address] Name, MD Ham [address] [place] [address] documented as of this encounter Visit Diagnoses Diagnosis Acute herpes zoster neuropathy documented in this encounter Additional Health Concerns Assessment Noted Time PHQ-9 Depression Total Score: 11 024 3:36 PM EDT documented as of this encounter Care Teams Ice Guard Tester Relationship Specialty Start Date End Date NameHam MD [address] [place] [address] PCP - General Family Medicine 01/28/16 documented as of this encounter
--- OUTSIDE RECORDS SUMMARY | 2024-10-03 10:38 | XMS_ITS | Encounter Summary ---
Author Organization [employer] Address [address] [place] [address] 7 [place] [address] Care Team Providers Care Matlab Developer Name Role Phone Name, Ham HERRING Primary Care Provider [phone] Reason for Visit * Reason Onset Date Comments Nurse Triage 07/03/2024 Results 07/03/2024 Encounter Details Date Type Department Care Team ([facility] Contact Info) Description 07/03/2024 Telephone [facility] MEDICINE [address] [place], [place] [phone] Name, MD Ham [address] [place] [address] Nurse Triage; Results Social History Tobacco Use Types Packs/Day Years [...] encounter Miscellaneous Notes * Telephone Encounter - Honey Day RN - 07/03/2024 11:30 AM EST Triage call with [facility] [place] [id number], Pt spoke croatian , toy electric train repairer wasn't needed. [facility] brought a urine sample to the lab at [facility] 06/26/24 and hasn't been called about the results.Results show possible UTI, Pt is advised to come to [facility] to be seen today. Pt has painful urination,urgency, low back pain and pelvic area pain. PT is advised to drink 6-8 glasses liquids including cranberry juice and Pt agrees. Pt insurance is verified as active. Protocol Used: Urination Pain - Female (Adult) Protocol-Based Disposition: See in Office or Video Visit Today Video visit not offered Positive Triage Question: * Painful urination AND EITHER frequency or urgency * All higher-acuity triage questions were negative Care Advice Discussed: * Reassurance and Education - Possible Urine Infection * Drink Extra Fluids * Cranberry Juice * Reasons To Call Back - Fever or back pain occurs - You become worse * Telephone Encounter - Yajaira Ramírez - 07/03/2024 10:06 AM EST Tc from Maryann nurse practitioner with [facility] calling to report pt is experiencing pain when using the bathroom and pt is requesting results from urine culture done on 06/26/24. Maraynn stated pt would like to speak to nurse regarding symptoms. Contact pt at [phone] (kenyan) or Maryann at [phone] documented in this encounter Plan of Treatment Upcoming Encounters Date Type Department Care Team (Late st Contact Info) Description 12/12/2024 10:45 AM EDT Office Visit [facility] MEDICINE [address] [place] [address] Name, MD Ham [address] [place] [address] documented as of this encounter Visit Diagnoses Not on filedocumented in this encounter Additional Health Concerns Assessment Noted Time PHQ-9 Depression Total Score: 24 024 11:40 AM EDT documented as of this encounter Care Teams Matlab Developer Relationship Specialty Start Date End Date Name, MD Ham [address] [place] [address] PCP - General Family Medicine 01/28/16 documented as of this encounter
--- OUTSIDE RECORDS SUMMARY | 2024-10-03 10:38 | XMS_ITS | Encounter Summary ---
Author Organization [employer] Address [address] [place] [address] 7 [place] [address] Care Team Providers Care Blade Sharpener Name Role Phone Name, Ham HERRING Primary Care Provider [phone] Reason for Visit * Reason Comments Med Refill Encounter Details Date Type Department Care Team ([facility] st Contact Info) Description 08/25/2024 Refill [facility] MEDICINE [address] [place] [address] Name, MD Ham [address] [place] [address] Recurrent UTI Social History Tobacco Use Types Packs/Day Years [...] Description 12/12/2024 10:45 AM EDT Office Visit [facility] MEDICINE [address] [place] [address] Name, MD Ham [address] [place] [address] documented as of this encounter Visit Diagnoses Diagnosis Recurrent UTI Urinary tract infection, site not specified documented in this encounter Additional Health Concerns Assessment Noted Time PHQ-9 Depression Total Score: 24 024 11:40 AM EDT documented as of this encounter Care Teams Blade Sharpener Relationship Specialty Start Date End Date NameHam MD [address] [place] [address] PCP - General Family Medicine 01/28/16 documented as of this encounter
--- OUTSIDE RECORDS SUMMARY | 2024-10-03 10:39 | XMS_ITS | Encounter Summary ---
Author Organization [employer] Address [address] [place] [address] [place] [address] Care Team Providers Care Metal Box Maker Name Role Phone NameHam MD Primary Care Provider [phone] Reason for Visit * Reason Comments Med Refill Encounter Details Date Type Department Care Team (Late Contact Info) Description 04/18/2023 Refill [facility] MEDICINE [address] [place] [address] [phone] NameHam MD [address] [place] [address] [phone] Social History Tobacco Use Types Packs/Day Years Used Date Smoking Tobacco: Never Smokeless Tobacco: Never Alcohol Use Standard Drinks/Week Comments Never 0 (1 standard drink = 0.6 oz pur e alcohol) Depression Answer Date Recorded Patient Health Questionnaire-2 Score 2 08/31/2022 Comments Unknown Sex and Gender Information Value [...] Description 12/12/2024 10:45 AM EDT Office Visit [facility] MEDICINE [address] [place] [address] [phone] Ham Hay MD [address] [place] [address] [phone] documented as of this encounter Visit Diagnoses Not on filedocumented in this encounter Care Teams Metal Box Maker Relationship Specialty Start Date End Date Ham Hay, MD [address] [place] [address] PCP - General Family Medicine 01/28/16 documented as of this encounter
--- OUTSIDE RECORDS SUMMARY | 2024-10-03 10:39 | XMS_ITS | Clinical Summary ---
Author Organization [employer] Address [address] [place] [address] [address] [place] [address] Care Team Providers Care Statistics Teacher Name Role Phone Name, Ham HERRING Primary Care Provider [phone] Allergies Active Allergy Reactions Criticality Noted Date Comments Empagliflozin 09/11/2020 Other reaction(s): Low blood pressure Medications * This document contains information received from the source organization and may not represent a complete record from that organization. glucose 4 g chewable tabletIndicati ons:Type 2 diabetes mellitus without complication, without long-term current use of insulin ([facility]),Hypo glycemia,Anore kathy Chew 4 tablets (16 g) if needed for low blood sugar. 50 tablet 12 3 Active ALPRAZolam (Xanax) 1 MG tablet Take 1 mg by mouth if needed in the morning and at bedtime for anxiety. 3 Active dicyclomine (Bentyl) 10 MG capsule 3 Active Linzess 290 MCG capsule 3 Active magnesium oxide 500 MG tablet 3 Active venlafaxine XR (Effexor XR) 150 MG 24 hr capsule Take 150 mg by mouth in the morning. 2 Active senna (Senokot) 8.6 MG tablet 3 Active Simethicone Ultra Strength 180 MG capsule TAKE 1 CAPSULE BY MOUTH FOUR TIMES DAILY AFTER MEALS 2 Active prazosin (Minipress) 2 MG capsule TAKE 3 CAPSULES BY MOUTH AT BEDTIME 2 Active Creon 78309-88436 units capsule Take 1 capsule by mouth 4 times daily. 2 Active Menthol, Topical Analgesic, (Biofreeze Professional) 5 % gel use 4x/day prn pain 1 Active ondansetron (Zofran) 4 MG tablet Take 1 tablet (4 mg) by mouth every 8 (eight) hours if needed for nausea or vomiting. 60 tablet 1 4 Active Gentle Laxative 5 MG EC tablet Take 2 tablets by mouth at bedtime. 4 Active RABEprazole (Aciphex) 20 MG EC tablet Take 1 tablet by mouth 2 times daily. 4 Active Motegrity 2 MG tablet Take 1 tablet by mouth 1 (one) time each day. Active latanoprost (Xalatan) 0.005 % ophthalmic solution Administer 1 drop into both eyes at bedtime. 4 Active famotidine (Pepcid) 20 MG tablet Take 1 tablet by mouth at bedtime. 4 Active QUEtiapine (SEROquel) 400 MG tablet Take 800 mg by mouth at bedtime. 4 Active zolpidem (Ambien) 5 MG tablet Take 1 tablet by mouth if needed at bedtime for sleep. Active Estrogens Conjugated 0.625 MG/GM cream Insert 1 g into the vagina See administration instructions. 1 gram intravaginal daily for 2 weeks and then 1 gram intravaginal twice a week 30 g 2 4 Active metFORMIN (Glucophage) 500 MG tablet TAKE 1 TABLET BY MOUTH WITH BREAKFAST AND EVENING MEAL 60 tablet 3 4 Active naproxen (Naprosyn) 500 MG tabletIndicati ons:Recurrent UTI TAKE 1 TABLET(500 MG) BY MOUTH TWICE DAILY FOR 20 DAYS 40 tablet 4 Active Active Problems Problem Noted Date Diagnosed Date Type 2 diabetes mellitus 08/31/2022 Blood in urine 03/14/2018 Renal colic 03/14/2018 Left upper quadrant pain 10/25/2017 History of cholecystectomy 10/25/2017 Knee pain 03/01/2017 Chronic low back pain 10/23/2016 Irritable bowel syndrome 10/23/2016 Steatosis of liver 10/23/2016 LFT elevation 09/30/2016 Pericardial effusion 03/30/2016 Kidney stone 12/14/2014 Esophagogastric ulcer 03/11/2012 Constipation 01/15/2012 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 Encounters Date Type Department Care Team Description 10/03/2024 Orders Only GENERIC EXTERNAL DATA DEPARTMENT Provider, Generic External Data 09/22/[address] [address] Ham Hay MD No Show 09/22/[address] [address] Ham Hay MD Nurse Triage 09/19/2024 Orders Only [facility] External Provider, [facility] 08/25/[address] [address] Ham Hay MD Recurrent UTI 08/08/2024 10:00 AM EST Office Visit [address] [address] Ham Hay MD Recurrent UTI (Primary Dx); Type 2 diabetes mellitus without complication, without long-term current use of insulin ([facility]) 08/08/2024 Travel 08/07/[address] [address] Livia Jaramillo MA Chart Prep 08/07/[address] [address] Yolette Mohan MA returning call back 08/03/[address] [address] Yolette Mohan MA feb recalls 07/03/[address] [address] Ham Hay MD Nurse Triage; Results from Last 3 Months Immunizations Name Administration Dates Next Due Influenza High-dose Quadriva lent Preservative Free 06/30/2023,05/13/2022 Influenza injectable quadriv alent IIV4 with preservative 05/17/2019,04/27/2017,05/04/2016,05/07 Influenza injectable quadriv alent preservative free 07/02/2021,05/01/2020,10/24/2018 Influenza, IIV3, injectable 05/30/2014, 8 Influenza, Split (incl. alfredo fied surface antigen) 05/09/2013,05/25/2012 Pneumococcal Conjugate PCV 20 06/30/2023 Pneumococcal Polysaccharide PPSV23 10/24/2018 Td (adult), unspecified 07/07/2001 Tdap 02/11/2024,10/07/2011 Social History Tobacco Use Types Packs/Day Years Used Date Smoking Tobacco: Never Smokeless Tobacco: Never Tobacco Cessation:Counseling Given: Not Answered Alcohol Use Standard Drinks/Week Comments Never 0 (1 standard drink = 0.6 oz pur e alcohol) Depression Answer Date Recorded Patient Health Questionnaire-9 Score 24 05/17/2024 Patient Health Questionnaire-9 Score 24 05/17/2024 Last PHQ-9: Questionnaire Data Not on file 1 Housing Stability Answer Date Recorded What is your housing situation today? I have gracielashay belle 11/01/[address] you [...] Orientation Straight 06/08/2022 10 :17 AM EDT Last Filed Vital Signs Vital Sign Reading Time Taken Comments Blood Pressure 128/79 08/08/2024 10:02 AM EST Pulse 110 08/08/2024 10:02 AM EST Temperature 36 ??C (96.8 ??F) 08/08/2024 10:02 AM EST Respiratory Rate 20 08/08/2024 10:02 AM EST Oxygen Saturation 98% 08/08/2024 10:02 AM EST Inhaled Oxygen Concentration - - Weight 63 kg (139 lb) 08/08/2024 10:02 AM EST Height 155.9 cm (5' 1.38 ) 08/08/2024 10:[address] Body Mass Index 25.94 08/08/2024 10:02 AM EST Plan of Treatment Upcoming Encounters Date Type Department Care Team (Late st Contact Info) Description 12/12/2024 10:45 AM EDT Office Visit [facility] [address] [place] [address] Name, MD Ham [address] [place] [address] Health Maintenance Due Date Last Done Comments CT Colonography 1955 FIT DNA/Cologuard 1955 FIT 1955 FOBT 1955 Sigmoidoscopy 1955 Eye Exam 1965 Hepatitis C Screening 1975 Hepatitis A Vaccines (1 of 2 - Risk 2-dose series) 1976 Zoster Vaccines (1 of 2) 2007 Hepatitis B Vaccines (1 of 3 - Risk 3-dose series) 2017 RSV Patients and Patients Aged 60 years or older (1 - Risk 60-74 years 1-dose series) 2017 COVID-19 Vaccine ( season) 2024 06/03/2022, 07/02/2021, 10/22/2020, Additional history exists Diabetes: Foot Exam 06/30/2024 06/30/2023, 06/30/2023, 06/30/2023, Additional history exists SDOH Screening 10/31/2024 11/01/2023 Depression Monitoring (PHQ-9) 11/15/2024 05/17/2024, 05/17/2024 Diabetes: Hemoglobin A1C 11/15/2024 024, 02/11/2024, 11/01/2023, Additional history exists Diabetes: Urine Protein Screening 01/17/2025 01/18/2024, 01/19/2023, 11/11/2022 Lipid Panel 01/17/2025 01/18/2024, 01/07, 11/11/2022 Alcohol/Substance Use Screening 05/17/2025 05/17/2024 Depression Screening 05/17/2025 05/17/2024, 08/31/19 23 Mammogram 05/29/2025 05/29/2024, 05/10, 05/28/2023, Additional history exists Tobacco Screening 08/08/2025 08/08/2024 Colonoscopy 05/09/2026 05/09/2019 Colorectal Cancer Screening 05/09/2026 DTaP/Tdap/Td Vaccines (3 - Td or Tdap) 02/10/2034 02/11/2024, 10/07/2011, 07/07/2001 Pneumococcal Vaccine: 50+ Years Completed 06/30/2023, 10/24/2018 Influenza Vaccine Completed 04/21/2024, , 05/13/2022, Additional history exists HIB Vaccines Aged Out No longer eligi ble based on patient's age to complete this topic HPV Vaccines Aged Out No longer eligi ble based on patient's age to complete this topic IPV Vaccines Aged Out No longer eligi ble based on patient's age to complete this topic Meningococcal Vaccine Aged Out No rosa rigo eligible based on patient's age to complete this topic RSV under 20 months Aged Out No longe r eligible based on patient's age to complete this topic Rotavirus Vaccines Aged Out No longer eligible based on patient's age to complete this topic Procedures Procedure Name Priority Date/Time Associated Diagnosis Comments COMPREHENSIVE METABOLIC PANEL Routine 10/03/2024 9:39 AM EST CBC WITH AUTO DIFFERENTIAL Routine 10/03/2024 9:39 AM EST GLUCOSE, WHOLE BLOOD Routine 10/03/2024 8:[address] UROGRAM WO CONTRAST Routine 9:51 AM EST POCT CREATININE GFR Routine 09/19/2024 9 :49 AM EST POCT GLUCOSE Routine 08/08/2024 10:05 AM EST Type 2 diabetes mellitus without complication, without long-term current use of insulin (CMS/HCC) CYTOPATH-CELL ENHANCED Routine 4:23 PM EST CULTURE, URINE, ROUTINE Routine 07/27/2024 2:51 PM EST BI MAMMOGRAM SCREENING TOMOSYNTHESIS BILATERAL Routine 05/29/2024 11:38 AM EDT POCT GLYCOSYLATED HEMOGLOBIN (HGB A1C) Routine 05/17/2024 11:37 AM EDT Type 2 diabetes mellitus without complication, without long-term current use of insulin (CMS/[facility]) ALBUMIN, RANDOM URINE W/CREATININE Routine 01/18/2024 8:56 AM EDT Type 2 diabetes mellitus without complication, without long-term current use of insulin (CMS/HCC) LIPID PANEL, STANDARD Routine 01/18/2024 8:56 AM EDT Type 2 diabetes mellitus without complication, without long-term current use of insulin ([facility]) HM COLONOSCOPY Routine 05/09/2019 from Last 3 Months or Most Recently Relevant to Health Maintenance Results * (ABNORMAL) CBC auto differential (10/03/2024 9:39 AM EST) White Blood Count 6.9 4.8 - 10.8 X10*3/uL [facility] Red Blood Count 3.61(L) 4.20 - 5.50 X10*6/uL [facility] Hemoglobin 9.7(L) 12.0 - 16.0 g/dl [facility] Hematocrit 29.9(L) 37.0 - 47.0 % [facility] Mean Corpuscular Volume 82.8 80.0 - 98.0 fL [facility] Mean Corpuscular Hemoglobin 26.9(L) 27.0 - 33.0 pg [facility] Mean Corpuscular HGB Conc 32.4 31.0 - 35.0 g/dl [facility] Red Cell Distribution Width 12.2 11.0 - 16.0 % [facility] Platelet Count 194 160 - 400 X10*3/uL [facility] Mean Platelet Volume 12.0 9.4 - 12.3 fL [facility] Neutrophils Percent Auto 62.3 45 - 73 % [facility] Imm Gran Pct Auto 0.3 0.0 - 0.4 % [facility] Lymphocytes Percent Auto 27.8 20 - 40 % [facility] Monocytes Percent Auto 7.3 2 - 11 % [facility] Eosinophils Percent Auto 1.7 0 - 4 % [facility] Basophils Percent Auto 0.6 0 - 2 % [facility] NRBC Pct Auto 0.0 0.0 - 0.2 /100WBC [facility] Neutrophils Absolute Auto 4.3 2.0 - 8.3 x10*3/uL [facility] Imm Gran Abs Auto 0.02 0.00 - 0.03 X10*3/uL [facility] Lymphocytes Absolute Auto 1.9 1.2 - 4.9 X10*3/uL [facility] Monocytes Absolute Auto 0.5 0.1 - 1.2 X10*3/uL [facility] Eosinophils Absolute Auto 0.1 0.0 - 0.4 X10*3/uL [facility] Basophils Absolute Auto 0.0 0.0 - 0.2 X10*3/uL [facility] NRBC Abs Auto 0.000 0.0 - 0.012 X10*3/uL [facility] 10/03/2024 9:39 AM EST 10/03/2024 9:46 AM EST us Generic External Data Provider LAB BLOOD ORDERAB LES Final Result Performing Organization Address City/State/[facility] Co de Phone Number [facility] [address] [place] [phone] * (ABNORMAL) Comprehensive Metabolic Panel (10/03/2024 9:39 AM EST) Sodium 140 135 - 145 mmol/L [facility] Potassium 2.6(LL) 3.3 - 5.1 mmol/L [facility] Comment:Critical value for P OTS: Results called to and read mariah SUMNER Person calling: FRANCIS Date: 10/03/24Time:1006 Chloride 119(H) 96 - 108 mmol/L [facility] Carbon Dioxide 15(L) 22 - 29 mmol/L [facility] Anion Gap 9(L) 12 - 20 [facility] Urea Nitrogen (BUN) 14 9 - 16 mg/dL [facility] Creatinine, Serum 0.67 0.5 - 1.4 mg/dL [facility] Creatinine Clr Calc Pharmacy 69.5 [facility] Comment:Provided height and weight: 154.94 cm,63.5 kg.eGFR (calculated from the MDRD study equation) and eCrCl(calculated from the Cockcroft-Gault equation) are based ondifferent parameters and may not yield comparable results.If eCrCl result is absurd, please check patient'sheight/weight. Estimated Glomerular Filt Rate >60 [facility] Comment:Chronic Kidney Disea se: Estimated GFR < 60 mL/min/1.01p7Rlobav Kidney Disease: Estimated GFR < 15 mL/min/1.73m2 Glucose 261(H) 60 - 115 mg/dL [facility] Calcium 6.5(L) 8.4 - 10.2 mg/dL [facility] Bilirubin, Total 0.2 0.0 - 1.0 mg/dL [facility] Aspartate Amino Transferase 12 5 - 31 U/L [facility] Alanine Aminotransferase 12 0 - 31 U/L [facility] Total Protein 4.4(L) 6.5 - 8.0 g/dL [facility] Albumin Level 2.7(L) 3.5 - 5.0 g/dL [facility] Alkaline Phosphatase 77 39 - 117 U/L [facility] 10/03/2024 9:39 AM EST 10/03/2024 9:46 AM EST us Generic External Data Provider LAB BLOOD ORDERAB LES Final Result Performing Organization Address [facility] de Phone Number [facility] [address] [place] [address] [phone] * (ABNORMAL) Glucose, Whole Blood (10/03/2024 8:22 AM EST) Glucose, Whole Blood 376(HH) 60 - 115 mg/dL [facility] Comment:METER #: [id number] 10/03/2024 8:22 AM EST 10/03/2024 8:26 AM EST us Generic External Data Provider LAB BLOOD ORDERAB LES Final Result Performing Organization Address [facility] de Phone Number [facility] [address] [place] [address] [phone] * CT Urogram w/o Contrast (09/19/2024 9:51 AM EST) Anatomical Region Laterality Modality Ureter, Upper urinary tract Comp uted Tomography 09/19/2024 9:51 AM EST Narrative 09/19/2024 10:45 AM EST ? [facility] ?[address] ?[place] [address] ? CT Scan Report ? Signed ? Patient: Colon Chris,Makenna ?MR#: [id number] ?? [id number] ? : 1955 ?Acct:[id number] ? Age/Sex: 69 / F ?ADM Date: 02/11/25 ? Loc: HO.CT ? Attending Dr: Robert Hoffman MD ? Ordering Physician: Robert Hoffman MD ?? Date of Service: 09/19/24 ?? Procedure(s): CT urogram ?? Accession Number(s): [id number] ? cc: Robert Hoffman MD; Name,Ham HERRING ? Report Number: ?? [id number]: Total DLP = ??503.00 mGy-cm ?? EXAMINATION: [...] Benton MD ??09/19/2024 10:41 AM ?? EST RP ? Dictated By: ?Benton Wally,Larry MD ? Signed By: ?<Electronically signed by Larry Lo MD in OV> ? 09/19/24 1041 ? DD/ 0951 ? TD/TT: 09/19/24 1017 ? [facility] Psych[facility]rist: ? Procedure Note Thi, Antonia - 09/19/[address] [address] [address] Scan Report Signed Patient: Makenna OrtizMR#: [id number] : 7Acct:[id number] Age/Sex: 69 / FADM Date: 09/19/24 Loc: .CT Attending Dr: Robert Hoffman MD Ordering Physician: Robert Hoffman MD Date of Service: 09/19/24 Procedure(s): CT urogram Accession Number(s): [id number] cc: Robert Hoffman MD; Name,Ham Report Number: [id number]: Total DLP = 503.00 mGy-cm EXAMINATION: CT [...] by: Larry Benton MD 09/19/2024 10:41 AM EST Dictated By: Larry Art MD Signed By: <Electronically signed by Larry Lo MDin OV> 09/19/24 1041 DD/ 0951 TD/TT: 09/19/24 1017 [facility] Psychiatrist: [facility] External Provider IMG CT PROCEDURES Final Result * POCT Creatinine GFR (09/19/2024 9:49 AM EST) POCT Creatinine 0.7 0.5 - 1.4 mg/dL [facility] GFR POC >60 [facility] Comment:Chronic Kidney Disea se: Estimated GFR < 60 mL/min/1.99t1Xuucgu Kidney Disease: Estimated GFR < 15 mL/min/1.73m2 09/19/2024 9:49 AM EST 09/19/2024 10:25 AM EST Narrative [facility] - 09/19/2024 10:26 AM EST [id number] Generic External Data Provider LAB POINT OF CARE TEST DOCKED DEVICE ORDERABLES Final Result [facility] [address] [place] [address] [phone] * (ABNORMAL) POCT Glucose (08/08/2024 10:05 AM EST) Pathologist [facility] Glucose Blood, POC 305(A) 60 - 200 mg/dL QC Media Lot # [id number] Lot# Expiration Date 600 Blood Capillary blood specimen / Unknown 08/08/2024 10:05 AM EST us Hambarrera Hay MD POINT OF CARE TEST ENTER/EDIT OR DERABLES Final Result * Cytopath-cell enhanced (07/27/2024 4:23 PM EST) 07/27/2024 4:23 PM EST 07/28/2024 8:30 AM EST Narrative [facility] - 07/31/2024 10:25 AM EST ----- ------- Name: Makenna Ortiz ?Age/Sex: 69/F ? : 1955 Unit#: [id number] ?? Attend Dr: Robert Hoffman MD ?Re07/27/24 ?Status: DEP REF ? Location: HO.LNP ?Disch: ? ----- ------- SPEC : [id number] ?RECD: 07/28/24 ? STATUS: ??SOUT ? REQ NUM: [id number] ? LEI: 07/27/24-1622 ? SUBM DR: Robert Hoffman MD ? ENTERED: ??07/28/24 ?SP TYPE: Cytology ? OTHR DR: Ham Hay MD ? ORDERED: ??Cyto-enhanced ? Diagnosis ?? Urine, cytology: ??Negative for high-grade urothelial carcinoma. ? COMMENT: ??Review of the cytology preparation demonstrates a cellular specimen composed of ?? benign squames and urothelial cells in a background of mixed inflammatory cells. Fungal ?? forms consistent with Malu species are identified. Red blood cells are noted. There is ?? no significant atypia seen. ?Clinical History Urinary tract infection, site not specified ? Material Received ?? Urine ? Gross Description Received is 8 cc of clear yellow fluid from which a ThinPrep slide is prepared. Copies To: ?? Robert Hoffman MD ?? [facility] ?? [address] [place] [address] [address] ?? [place] [address] ?? [phone] ?? [email or web address] ?? Name,Ham HERRING ?? [address] [facility] ?? [place] ?? [phone] ----- ------- Signed (signature on file) Cindi Fernandez MD 07/31/24 1025 ? ----- ------- ? END OF REPORT ? Generic External Data Provider LAB CYTOLOGY NII SONG Final Result [facility] [address] [place] [address] [phone] * Culture, Urine, Routine (07/27/2024 2:51 PM EST) Urine Urine specimen obtained by clean catch procedure / Unknown 07/27/2024 2:51 PM EST 07/27/2024 4:24 PM EST Comment:UACC Narrative [facility] - 07/29/2024 10:55 AM EST Corynebacterium species Quant > 100,000 cfu/mL Susc N/A Susceptibility not routinely performed on this isolate. Specimen Source: Urine clean catch us Generic External Data Provider LAB MICROBIOLOGY - GENERAL ORDERABLES Final Result [facility] [address] [place] [address] [phone] * BI Mammogram Screening Tomosynthesis Bilateral (05/29/2024 11:38 AM EDT) Anatomical Region Laterality Modality Breast Bilateral Mammography 05/29/2024 11:3 8 AM EDT Narrative 06/09/2024 10:51 AM EDT ? [facility] ? [address] ?[place] [address] ? Mammography Report ? Signed ? Patient: Colon Chris,Makenna ?MR#: [id number] ?? [id number] ? : 1955 ?Acct:[id number] ? Age/Sex: 69 / F ?ADM Date: 05/29/24 ? Loc: HO.MAMMO ? Attending Dr: Ham Name MD ? Ordering Physician: Name,Ham MD ?Results: 1Negative ? Date of Service: 05/29/24 ?Follow Up: 1 Year From Orig ?? inal Mammogram ? Procedure(s): MM tomosynthesis screening BI ?? Accession Number(s): [id number] ? cc: Name,Ham ? EXAMINATION: ?? MM SCREENING DIGITAL BREAST TOMOSYNTHESIS, BILATERAL ? CLINICAL INFORMATION: ? Screening. Asymptomatic. ? COMPARISON: ?? Mammography: Comparison is made with available priors ? TECHNIQUE: ?? Digital breast mammography with tomosynthesis is performed in both the ?? craniocaudal and mediolateral oblique views along with computer-aided ?? detection (CAD). ? FINDINGS: ?? There are scattered areas of fibroglandular density (ACR BI-RADS breast ?? composition Category b). ? There are no significant masses, abnormal calcifications, or other ?? abnormalities. ? MM/MM tomosynthesis screening BI ?? IMPRESSION: ?? No mammographic evidence of malignancy. ? ASSESSMENT: ? BI-RADS BI-RADS 1 - Negative ? RECOMMENDATION: ?? Routine annual mammography screening. ? 1 year F/U ? This examination should not preclude the clinical evaluation of a ?? suspicious palpable abnormality. ? This patient's information was entered into a reminder system with a ?? target due date for their next mammogram. ? Electronically signed by: ??Margi Bird DO ??06/09/2024 10:48 AM EDT ? Dictated By: ?Margi Bird DO ? Signed By: ?<Electronically signed by Margi Bird, DO in OV> ? 06/09/24 1048 ? DD/ 1138 ? TD/TT: 05/29/24 1153 ? [facility] Psychiatrist: ? Procedure Note Thi, Image - 06/09/2024 [facility] [address] [place] [address] Dr. [place], [place] [address] Mammography Report Signed Patient: Makenna OrtizMR#: [id number] : 7Acct:[id number] Age/Sex: 69 / FADM Date: 05/29/24 Loc: AN[facility]IO Attending DrJackeline Hay MD Ordering Physician: Ham Hayesults: 1Negative Date of Service: 05/29/24Follow Up: 1 Year From Orig inal Mammogram Procedure(s): MM tomosynthesis screening BI Accession Number(s): [id number] cc: Ham Hay MD EXAMINATION: MM SCREENING DIGITAL BREAST TOMOSYNTHESIS, BILATERAL CLINICAL INFORMATION: Screening. Asymptomatic. COMPARISON: Mammography: Comparison is made with available priors TECHNIQUE: Digital breast mammography with tomosynthesis is performed in both the craniocaudal and mediolateral oblique views along with computer-aided detection (CAD). FINDINGS: There are scattered areas of fibroglandular density (ACR BI-RADS breast composition Category b). There are no significant masses, abnormal calcifications, or other abnormalities. MM/MM tomosynthesis screening BI IMPRESSION: No mammographic evidence of malignancy. ASSESSMENT: BI-RADS BI-RADS 1 - Negative RECOMMENDATION: Routine annual mammography screening. 1 year F/U This examination should not preclude the clinical evaluation of a suspicious palpable abnormality. This patient's information was entered into a reminder system with a target due date for their next mammogram. Electronically signed by: Margi Bird DO 06/09/2024 10:48 AM EDT Dictated By: Margi Bird DO Signed By: <Electronically signed by Margi Bird DO in OV> 06/09/24 1048 DD/ 1138 TD/TT: 05/29/24 1153 [facility] Psychiatrist: us Ham Hay MD IMG BI PROCEDURES Edited Result - Final * (ABNORMAL) POCT glycosylated hemoglobin (Hgb A1c) (05/17/2024 11:37 AM EDT) Hemoglobin A1C 6.7(A) 4.0 - 6.0 % QC Media Lot # [id number] Lot# Expiration Date [id number] Blood Capillary blood specimen / Unknown 05/17/2024 11:37 AM EDT us Ham Hay MD POINT OF CARE TEST ENTER/EDIT OR DERABLES Final Result * Albumin, Random Urine W/Creatinine (01/18/2024 8:56 AM EDT) Creatinine, Urine 239.15 mg/dL [facility] Microalbumin Urine 18.0 mg/L [facility] Microalbum Creatinine Ratio Ur 7.5 <30 ug/mg cr [facility] Comment:Albumin/Creatinine R atio Reference Ranges: Normal: < 30 ug/mg creatinine Microalbuminuria: 30 - 300 ug/mg creatinineClinical Albuminuria: > 300 ug/mg creatinine Urine (Urine, Random) 01/18/2024 8:56 AM EDT 01/18/2024 11:08 AM EDT us Ham Hay MD LAB URINE ORDERABLES Final Resul t [facility] [address] [place] [phone] * (ABNORMAL) Lipid Panel, Standard (01/18/2024 8:56 AM EDT) Triglycerides 225(H) <150 mg/dL [facility] Comment:Desirable Triglyceri de: less than 150 mg/dLBorderline High Triglyceride 150-199 mg/dLHigh Triglyceride: 200-499 mg/dLVery High Triglyceride: greater than or equal to 5OO mg/dL Cholesterol 184 <200 mg/dL [facility] Comment:Desirable Cholestero l: less than 200 mg/dLBorderline High Cholesterol: 200-239 mg/dLHigh Cholesterol: greater than 239 mg/dL LDL Cholesterol Calculated 80 <100 mg/dL [facility] Comment:Desirable LDL: less than 100 mg/dLNear Optimal/Above Optimal LDL: 110- 129 mg/dLBorderline High LDL: 130-159 mg/dLHigh LDL: 160-189 mg/dLVery High LDL: greater than or equal to 190 mg/dL HDL Cholesterol 59 >40 mg/dL [facility] Comment:Desirable HDL: great er than 40 mg/dL Note: This HDL assay may give artificially low results in patients with liver disease. Blood Venous blood specimen / Unknown 01/18/2024 8:56 AM EDT 01/18/2024 11:15 AM EDT us Ham Hay MD LAB BLOOD ORDERABLES Final Resul t [facility] [address] [place] [address] [phone] * (ABNORMAL) Colonoscopy (05/09/2019) Colonoscopy Abnormal(A ) Normal [facility] External Provider HEALTH MAINTENANCE Final Result from Last 3 Months or Most Recently Relevant to Health Maintenance Insurance [facility] Care Teams Statistics Teacher Relationship Specialty Start Date End Date Name, MD Ham [address] [place] [address] PCP - General Family Medicine 01/28/16
--- OUTSIDE RECORDS SUMMARY | 2024-10-03 10:39 | XMS_ITS | Encounter Summary ---
Author Organization [employer] Address [address] [place] [address] 7 [place] [address] Care Team Providers Care Escapement Matcher Name Role Phone NameHam MD Primary Care Provider [phone] Encounter Details Date Type Department Care Team (Late Contact Info) Description 01/19/2023 Abstract [facility] [address] [place] [phone] Ham Hay MD [address] [place] [address] [phone] Social History Tobacco Use Types Packs/Day Years [...] Description 12/12/2024 10:45 AM EDT Office Visit [facility] [address] [place] [address] [phone] NameHam MD [address] [place] [address] [phone] documented as of this encounter Visit Diagnoses Not on filedocumented in this encounter Care Teams Escapement Matcher Relationship Specialty Start Date End Date NameHam MD [address] [place] [address] PCP - General Family Medicine 01/28/16 documented as of this encounter
--- OUTSIDE RECORDS SUMMARY | 2024-10-03 10:39 | XMS_ITS | Encounter Summary ---
Author Organization [employer] Address [address] [place] [address] 7 [place] [address] Care Team Providers Care Yard Coordinator Name Role Phone Name, Ham HERRING Primary Care Provider [phone] Encounter Details Date Type Department Care Team (Late Contact Info) Description 10/27/2022 Orders Only [facility] [address] [place], [place] [phone] Amber Everett LPN Social History Tobacco Use Types Packs/Day Years [...] Description 12/12/2024 10:45 AM EDT Office Visit [facility] [address] [place] [address] Name, MD Ham [address] [place] [address] documented as of this encounter Visit Diagnoses Not on filedocumented in this encounter Care Teams Yard Coordinator Relationship Specialty Start Date End Date NameHam MD [address] [place] [address] PCP - General Family Medicine 01/28/16 documented as of this encounter
[2024-10-03 11:54] LABS: Glucose, Whole Blood 227 mg/dL (60-115)
[2024-10-03 12:46] VITALS: BP 124/83; PULSE 99; RESP 12; TEMP 36.7; O2SAT 97
[2024-10-03 13:15] LABS: Anion Gap 13 (12-20); Blood Urea Nitrogen 14 mg/dL (9-16); Calcium 8.2 mg/dL (8.4-10.2); Carbon Dioxide 18 mmol/L (22-29); Chloride 115 mmol/L (96-108); Creatinine Clr Calc Pharmacy 58.2; Estimated Glomerular Filt Rate > 60; Glucose Random 245 mg/dL (60-115); Potassium 4.1 mmol/L (3.3-5.1); Sodium 142 mmol/L (135-145)
[2024-10-03 13:54] VITALS: BP 132/78; PULSE 97; RESP 16; TEMP 36.7; O2SAT 98
== END 2024-10-03 14:00 | disposition home or self-care (01) ==
PROVIDERS: Emergency Provider Emergency Medicine; PCP Internal Medicine Geriatric Medicine
DX: E11.65 Type 2 diabetes mellitus with hyperglycemia (principal); R79.89 Other specified abnormal findings of blood chemistry; E23.2 Diabetes insipidus; R11.2 Nausea with vomiting, unspecified; Z79.899 Other long term (current) drug therapy; Z79.84 Long term (current) use of oral hypoglycemic drugs
CPT/HCPCS: 36415; 80048; 80053; 82947; 85025; 96360; 96361; 99284; J0690; J1644; J2003; J2704; J2795; J3010

== ENCOUNTER 2024-10-06 10:48 | Outpatient (REF) | payer OTHER, SELFPAY ==
[2024-10-06 11:31] LABS: MANUAL DIFF FLAG NO
[2024-10-06 11:33] LABS: Basophils Absolute Auto 0.1 X10*3/uL (0.0-0.2); Eosinophils Absolute Auto 0.2 X10*3/uL (0.0-0.4); Eosinophils Percent Auto 3.4 % (0-4); Hematocrit 36.3 % (37.0-47.0); Imm Gran Abs Auto 0.02 X10*3/uL (0.00-0.03); Imm Gran Pct Auto 0.3 % (0.0-0.4); Lymphocytes Absolute Auto 2.4 X10*3/uL (1.2-4.9); Lymphocytes Percent Auto 39.5 % (20-40); Mean Corpuscular HGB Conc 33.1 g/dl (31.0-35.0); Mean Corpuscular Hemoglobin 27.7 pg (27.0-33.0); Mean Corpuscular Volume 83.8 fL (80.0-98.0); Mean Platelet Volume 11.6 fL (9.4-12.3); Monocytes Absolute Auto 0.4 X10*3/uL (0.1-1.2); Neutrophils Absolute Auto 2.9 x10*3/uL (2.0-8.3); Neutrophils Percent Auto 48.8 % (45-73); Platelet Count 213 X10*3/uL (160-400); Red Blood Count 4.33 X10*6/uL (4.20-5.50); Red Cell Distribution Width 12.4 % (11.0-16.0)
[2024-10-06 11:55] LABS: Anion Gap 14 (12-20); Blood Urea Nitrogen 18 mg/dL (9-16); Calcium 9.4 mg/dL (8.4-10.2); Carbon Dioxide 20 mmol/L (22-29); Chloride 108 mmol/L (96-108); Estimated Glomerular Filt Rate > 60; Glucose Random 302 mg/dL (60-115); Iron 59 mcg/dL (30-160); Magnesium 1.5 mg/dL (1.6-2.6); Percent Iron Saturation 20 % (15-50); Potassium 4.4 mmol/L (3.3-5.1); Sodium 138 mmol/L (135-145); Total Iron Binding Capacity 288 mcg/dL (228-428); Unsaturated Iron Binding 229 ug/dL
[2024-10-06 12:09] LABS: Ferritin 29 ng/mL (10-250)
--- OUTSIDE RECORDS SUMMARY | 2024-10-06 12:23 | XMS_ITS | Encounter Summary ---
Author Organization [employer] Address [address] [place] [address] 7 [place] [address] Care Team Providers Care Cw Operator Name Role Phone Name, Ham HERRING Primary Care Provider [phone] Reason for Visit * Reason Comments Med Refill Encounter Details Date Type Department Care Team ([facility] st Contact Info) Description 08/25/2024 Refill [facility] [address] [place] [address] Name, MD Ham [address] [place] [address] Recurrent UTI Social History Tobacco Use Types [...] Description 12/12/2024 10:45 AM EDT Office Visit [facility] [address] [place] [phone] Name, MD Ham [address] [place] [phone] documented as of this encounter Visit Diagnoses Diagnosis Recurrent UTI Urinary tract infection, site not specified documented in this encounter Additional Health Concerns Assessment Noted Time PHQ-9 Depression Total Score: 24 024 11:40 AM EDT documented as of this encounter Care Teams Cw Operator Relationship Specialty Start Date End Date NameHam MD [address] [place] [phone] PCP - General Family Medicine 01/28/16 documented as of this encounter
--- OUTSIDE RECORDS SUMMARY | 2024-10-06 12:23 | XMS_ITS | Encounter Summary ---
Author Organization [employer] Address [address] [place] [address] 7t [place] [address] Care Team Providers Care Used Equipment Sales Representative Name Role Phone Name, Ham HERRING Primary Care Provider [phone] Encounter Details Date Type Department Care Team [...] Description 12/12/2024 10:45 AM EDT Office Visit [facility] MED[facility]INE [address] [place] [address] Name, MD Ham [address] [place] [address] documented as of this encounter Procedures Procedure Name Priority Date/Time Associated Diagnosis Comments BASIC METABOLIC PANEL Routine 10/03/2024 12:52 PM EST GLUCOSE, WHOLE BLOOD Routine 10/03/2024 11:50 AM EST CBC WITH AUTO DIFFERENTIAL Routine 10/03/2024 9:39 AM EST COMPREHENSIVE METABOLIC PANEL Routine 10/03/2024 9:39 AM EST GLUCOSE, WHOLE BLOOD Routine 10/03/2024 8:22 AM EST documented in this encounter Results * (ABNORMAL) Basic Metabolic Panel (10/03/2024 12:52 PM EST) Sodium 142 135 - 145 mmol/L [facility] Potassium 4.1 3.3 - 5.1 mmol/L [facility] Chloride 115(H) 96 - 108 mmol/L [facility] Carbon Dioxide 18(L) 22 - 29 mmol/L [facility] Anion Gap 13 12 - 20 [facility] Urea Nitrogen (BUN) 14 9 - 16 mg/dL [facility] Creatinine, Serum 0.80 0.5 - 1.4 mg/dL [facility] Creatinine Clr Calc Pharmacy 58.2 [facility] Comment:Provided height and weight: 154.94 cm,63.5 kg.eGFR (calculated from the MDRD study equation) and eCrCl(calculated from the Cockcroft-Gault equation) are based ondifferent parameters and may not yield comparable results.If eCrCl result is absurd, please check patient'sheight/weight. Estimated Glomerular Filt Rate >60 [facility] Comment:Chronic Kidney Disea se: Estimated GFR < 60 mL/min/1.41n1Ncghnr Kidney Disease: Estimated GFR < 15 mL/min/1.73m2 Glucose 245(H) 60 - 115 mg/dL [facility] Calcium 8.2(L) 8.4 - 10.2 mg/dL [facility] 10/03/2024 12:5 2 PM EST 10/03/2024 12:55 PM EST Generic External Data Provider LAB BLOOD ORDERAB LES Final Result Performing Organization Address [facility]/ZIP Co de Phone Number [facility] [address] [place] [phone] * (ABNORMAL) Glucose, Whole Blood (10/03/2024 11:50 AM EST) Glucose, Whole Blood 227(H) 60 - 115 mg/dL [facility] Comment:METER #: [id number] 10/03/2024 11:5 0 AM EST 10/03/2024 11:53 AM EST Generic External Data Provider LAB BLOOD ORDERAB LES Final Result Performing Organization Address City/[facility]/ZIP Co de Phone Number [facility] [address] [place] [phone] * (ABNORMAL) Comprehensive Metabolic Panel (10/03/2024 9:39 AM EST) Sodium 140 135 - 145 mmol/L [facility] Potassium 2.6(LL) 3.3 - 5.1 mmol/L [facility] Comment:Critical value for P OTS: Results called to and read mariah MONTESPITA Person calling: FRANCIS Date: 10/03/24Time:1006 Chloride 119(H) 96 - 108 mmol/L [facility] Carbon Dioxide 15(L) 22 - 29 mmol/L [facility] Anion Gap 9(L) 12 - 20 [facility] Urea Nitrogen (BUN) 14 9 - 16 mg/dL [facility] Creatinine, Serum 0.67 0.5 - 1.4 mg/dL [facility] Creatinine Clr Calc Pharmacy 69.5 [facility] Comment:Provided height and weight: 154.94 cm,63.5 kg.eGFR (calculated from the MDRD study equation) and eCrCl(calculated from the Cockcroft-Gault equation) are based ondifferent parameters and may not yield comparable results.If eCrCl result is absurd, please check patient'sheight/weight. Estimated Glomerular Filt Rate >60 [facility] Comment:Chronic Kidney Disea se: Estimated GFR < 60 mL/min/1.46g5Okumgm Kidney Disease: Estimated GFR < 15 mL/min/1.73m2 Glucose 261(H) 60 - 115 mg/dL [facility] Calcium 6.5(L) 8.4 - 10.2 mg/dL [facility] Bilirubin, Total 0.2 0.0 - 1.0 mg/dL [facility] Aspartate Amino Transferase 12 5 - 31 U/L [facility] Alanine Aminotransferase 12 0 - 31 U/L [facility] Total Protein 4.4(L) 6.5 - 8.0 g/dL [facility] Albumin Level 2.7(L) 3.5 - 5.0 g/dL [facility] Alkaline Phosphatase 77 39 - 117 U/L [facility] 10/03/2024 9:39 AM EST 10/03/2024 9:46 AM EST us Generic External Data Provider LAB BLOOD ORDERAB LES Final Result [facility] [address] [place], [place] [phone] * (ABNORMAL) CBC auto differential (10/03/2024 9:39 AM EST) White Blood Count 6.9 4.8 - 10.8 X10*3/uL [facility] Red Blood Count 3.61(L) 4.20 - 5.50 X10*6/uL [facility] Hemoglobin 9.7(L) 12.0 - 16.0 g/dl [facility] Hematocrit 29.9(L) 37.0 - 47.0 % [facility] Mean Corpuscular Volume 82.8 80.0 - 98.0 fL [facility] Mean Corpuscular Hemoglobin 26.9(L) 27.0 - 33.0 pg [facility] Mean Corpuscular HGB Conc 32.4 31.0 - 35.0 g/dl [facility] Red Cell Distribution Width 12.2 11.0 - 16.0 % [facility] Platelet Count 194 160 - 400 X10*3/uL [facility] Mean Platelet Volume 12.0 9.4 - 12.3 fL [facility] Neutrophils Percent Auto 62.3 45 - 73 % [facility] Imm Gran Pct Auto 0.3 0.0 - 0.4 % [facility] Lymphocytes Percent Auto 27.8 20 - 40 % [facility] Monocytes Percent Auto 7.3 2 - 11 % [facility] Eosinophils Percent Auto 1.7 0 - 4 % [facility] Basophils Percent Auto 0.6 0 - 2 % [facility] NRBC Pct Auto 0.0 0.0 - 0.2 /100WBC [facility] Neutrophils Absolute Auto 4.3 2.0 - 8.3 x10*3/uL [facility] Imm Gran Abs Auto 0.02 0.00 - 0.03 X10*3/uL [facility] Lymphocytes Absolute Auto 1.9 1.2 - 4.9 X10*3/uL [facility] Monocytes Absolute Auto 0.5 0.1 - 1.2 X10*3/uL [facility] Eosinophils Absolute Auto 0.1 0.0 - 0.4 X10*3/uL [facility] Basophils Absolute Auto 0.0 0.0 - 0.2 X10*3/uL [facility] NRBC Abs Auto 0.000 0.0 - 0.012 X10*3/uL [facility] 10/03/2024 9:39 AM EST 10/03/2024 9:46 AM EST us Generic External Data Provider LAB BLOOD ORDERAB LES Final Result Performing Organization Address City/[facility]/ZIP Co de Phone Number [facility] [address] [place] [address] [phone] * (ABNORMAL) Glucose, Whole Blood (10/03/2024 8:22 AM EST) Glucose, Whole Blood 376(HH) 60 - 115 mg/dL [facility] Comment:METER #: [id number] 10/03/2024 8:22 AM EST 10/03/2024 8:26 AM EST us Generic External Data Provider LAB BLOOD ORDERAB LES Final Result Performing Organization Address [facility] Co de Phone Number [facility] [address] [place] [phone] documented in this encounter Visit Diagnoses Not on filedocumented in this encounter Additional Health Concerns Assessment Noted Time PHQ-9 Depression Total Score: 24 024 11:40 AM EDT documented as of this encounter Care Teams Used Equipment Sales Representative Relationship Specialty Start Date End Date Name, MD Ham [address] [place] [address] PCP - General Family Medicine 01/28/16 documented as of this encounter
--- OUTSIDE RECORDS SUMMARY | 2024-10-06 12:23 | XMS_ITS | Encounter Summary ---
Author Organization [employer] Address [address] [place] [address] 7 [place] [address] Care Team Providers Care Founder Name Role Phone Name, Ham HERRING Primary Care Provider [phone] Reason for Visit * Reason Onset Date Comments Nurse Triage 07/03/2024 Results 07/03/2024 Encounter Details Date Type Department Care Team ([facility] Contact Info) Description 07/03/2024 Telephone [facility] MEDICINE [address] [place], [place] [phone] Name, MD Ham [address] [place] [address] Nurse Triage; Results Social History Tobacco Use [...] 07/03/2024 11:30 AM EST Triage call with [facility] [place] [id number], Pt spoke hungarian , mill dresser wasn't needed. [employer] brought a urine sample to the lab at [facility] 06/26/24 and hasn't been called about the results.Results show possible UTI, Pt is advised to come to [facility] to be seen today. Pt has painful [...] EST Tc from Maryann nurse practitioner with [facility] calling to report pt is experiencing pain when using the bathroom and pt is requesting results from urine culture done on 06/26/24. Maryann stated pt would like to speak to nurse regarding symptoms. Contact pt at [phone] ([email or web address]) or Maryann at [phone] documented in this encounter Plan of Treatment Upcoming Encounters Date Type Department Care Team (Late st Contact Info) Description 12/12/2024 10:45 AM EDT Office Visit [facility] MEDICINE [address] [place] [phone] Name, MD Ham [address] [place] [address] documented as of this encounter Visit Diagnoses Not on filedocumented in this encounter Additional Health Concerns Assessment Noted Time PHQ-9 Depression Total Score: 24 024 11:40 AM EDT documented as of this encounter Care Teams Founder Relationship Specialty Start Date End Date Name, MD Ham [address] [place] [phone] PCP - General Family Medicine 01/28/16 documented as of this encounter
--- OUTSIDE RECORDS SUMMARY | 2024-10-06 12:23 | XMS_ITS | Encounter Summary ---
Author Organization [employer] Address [address] [place] [address] 7t [place] [address] Care Team Providers Care Parts Finisher Name Role Phone Name, Ham HERRING Primary Care Provider [phone] Reason for Visit * Reason Comments potassium level Encounter Details Date Type Department Care Team ([facility] Contact Info) Description 10/06/2024 10:20 AM EST Office Visit [facility] [address] [place] [address] H/O hypokalemia (Primary Dx); Anemia, unspecified type Social History Tobacco Use Types Packs/Day Years [...] AM EDT documented as of this encounter Last Filed Vital Signs Vital Sign Reading Time Taken Comments Blood Pressure 130/78 10/06/2024 10:06 AM EST Pulse 112 10/06/2024 10:25 AM EST Temperature 36.5 ??C (97.7 ??F) 10/06/2024 1 0:06 AM EST Respiratory Rate 17 10/06/2024 10:0 6 AM EST Oxygen Saturation 99% 10/06/2024 10: 06 AM EST Inhaled Oxygen Concentration - - Weight 64.3 kg (141 lb 12.8 oz) 025 10:06 AM EST Height - - Body Mass Index 26.46 08/08/2024 10:02 AM EST documented in this encounter Plan of Treatment Upcoming Encounters Date Type Department Care Team (Late st Contact Info) Description 12/12/2024 10:45 AM EDT Office Visit [facility] MED[facility]INE [address] [place] [phone] Name, MD Ham [address] [place] [address] Scheduled Orders Name Type Priority Associated Diagnoses Orde r Schedule Folate, Serum Lab Routine Anemia, unspecified type Expected: 10/06/2024 (Approximate), Expires: 10/06/2025 Vitamin B12 Lab Routine Anemia, unspecified type Expected: 10/06/2024 (Approximate), Expires: 10/06/2025 documented as of this encounter Procedures Procedure Name Priority Date/Time Associated Diagnosis Comments CBC WITH AUTO DIFFERENTIAL Routine 10/06/2024 11:30 AM EST Anemia, unspecified type IRON AND TOTAL IRON BINDING CAPACITY Routine 10/06/2024 11:30 AM EST Anemia, unspecified type MAGNESIUM Routine 10/06/2024 11:30 AM EST H/O hypokalemia FERRITIN Routine 10/06/2024 11:30 AM EST Anemia, unspecified type BASIC METABOLIC PANEL Routine 10/06/2024 11:30 AM EST H/O hypokalemia documented in this encounter Results * (ABNORMAL) Magnesium (10/06/2024 11:30 AM EST) Magnesium 1.5(L) 1.6 - 2.6 mg/dL [facility] Blood Venous blood specimen / Unknown 10/06/2024 11:30 AM EST 10/06/2024 11:30 AM EST us Perfecto Pat MD LAB BLOOD ORDERABLES Final Resul t Performing Organization Address City/[facility] Co de Phone Number [facility] [address] [place] [phone] * Iron And Total Iron Binding Capacity (10/06/2024 11:30 AM EST) Iron 59 30 - 160 mcg/dL [facility] Total Iron Binding Capacity 288 228 - 428 mcg/dL [facility] Percent Iron Saturation 20 15 - 50 % [facility] Unsaturated Iron Binding 229 ug/dL [facility] Blood Venous blood specimen / Unknown 10/06/2024 11:30 AM EST 10/06/2024 11:30 AM EST us Perfecto Pat MD LAB BLOOD ORDERABLES Final Resul t Performing Organization Address City/[facility] Co de Phone Number [facility] [address] [place] [phone] * Ferritin (10/06/2024 11:30 AM EST) Ferritin 29 10 - 250 ng/mL [facility] Blood Venous blood specimen / Unknown 10/06/2024 11:30 AM EST 10/06/2024 11:30 AM EST Perfecto Pat MD LAB BLOOD ORDERABLES Final Resul t [facility] [address] [place] [address] [phone] * (ABNORMAL) CBC auto differential (10/06/2024 11:30 AM EST) White Blood Count 6.0 4.8 - 10.8 X10*3/uL [facility] Red Blood Count 4.33 4.20 - 5.50 X10*6/uL [facility] Hemoglobin 12.0 12.0 - 16.0 g/dl [facility] Hematocrit 36.3(L) 37.0 - 47.0 % [facility] Mean Corpuscular Volume 83.8 80.0 - 98.0 fL [facility] Mean Corpuscular Hemoglobin 27.7 27.0 - 33.0 pg [facility] Mean Corpuscular HGB Conc 33.1 31.0 - 35.0 g/dl [facility] Red Cell Distribution Width 12.4 11.0 - 16.0 % [facility] Platelet Count 213 160 - 400 X10*3/uL [facility] Mean Platelet Volume 11.6 9.4 - 12.3 fL [facility] Neutrophils Percent Auto 48.8 45 - 73 % [facility] Imm Gran Pct Auto 0.3 0.0 - 0.4 % [facility] Lymphocytes Percent Auto 39.5 20 - 40 % [facility] Monocytes Percent Auto 7.0 2 - 11 % [facility] Eosinophils Percent Auto 3.4 0 - 4 % [facility] Basophils Percent Auto 1.0 0 - 2 % [facility] NRBC Pct Auto 0.0 0.0 - 0.2 /100WBC [facility] Neutrophils Absolute Auto 2.9 2.0 - 8.3 x10*3/uL [facility] Imm Gran Abs Auto 0.02 0.00 - 0.03 X10*3/uL [facility] Lymphocytes Absolute Auto 2.4 1.2 - 4.9 X10*3/uL [facility] Monocytes Absolute Auto 0.4 0.1 - 1.2 X10*3/uL [facility] Eosinophils Absolute Auto 0.2 0.0 - 0.4 X10*3/uL [facility] Basophils Absolute Auto 0.1 0.0 - 0.2 X10*3/uL [facility] NRBC Abs Auto 0.000 0.0 - 0.012 X10*3/uL [facility] Blood Venous blood specimen / Unknown 10/06/2024 11:30 AM EST 10/06/2024 11:30 AM EST us Perfecto Pat MD LAB BLOOD ORDERABLES Final Resul t [facility] [address] [place] [phone] * (ABNORMAL) Basic Metabolic Panel (10/06/2024 11:30 AM EST) Sodium 138 135 - 145 mmol/L [facility] Potassium 4.4 3.3 - 5.1 mmol/L [facility] Chloride 108 96 - 108 mmol/L [facility] Carbon Dioxide 20(L) 22 - 29 mmol/L [facility] Anion Gap 14 12 - 20 [facility] Urea Nitrogen (BUN) 18(H) 9 - 16 mg/dL [facility] Creatinine, Serum 0.93 0.5 - 1.4 mg/dL [facility] Estimated Glomerular Filt Rate >60 [facility] Comment:Chronic Kidney Disea se: Estimated GFR < 60 mL/min/1.04p9Jyxvhs Kidney Disease: Estimated GFR < 15 mL/min/1.73m2 Glucose 302(H) 60 - 115 mg/dL [facility] Calcium 9.4 8.4 - 10.2 mg/dL [facility] Blood Venous blood specimen / Unknown 10/06/2024 11:30 AM EST 10/06/2024 11:30 AM EST us Perfecto Pat MD LAB BLOOD ORDERABLES Final Resul t [facility] [address] [place] [address] [phone] documented in this encounter Visit Diagnoses Diagnosis H/O hypokalemia- Primary Anemia, unspecified type documented in this encounter Additional Health Concerns Assessment Noted Time PHQ-9 Depression Total Score: 24 024 11:40 AM EDT documented as of this encounter Care Teams Parts Finisher Relationship Specialty Start Date End Date Name, MD Ham [address] [place] [address] PCP - General Family Medicine 01/28/16 documented as of this encounter
--- OUTSIDE RECORDS SUMMARY | 2024-10-06 12:23 | XMS_ITS | Clinical Summary ---
Author Organization [employer] Address [address] [place] [address] [address] [place] [address] Care Team Providers Care [employer] As[employer]er Name Role Phone Name, Ham HERRING Primary Care Provider [phone] Allergies Active Allergy Reactions Criticality Noted Date Comments Empagliflozin 09/11/2020 Other reaction(s): Low blood pressure Medications * This document contains information received from the source organization and may not represent a complete record from that organization. glucose 4 g chewable tabletIndicat ions:Type 2 diabetes mellitus without complication, without long-term current use of insulin ([facility]),Hyp oglycemia,Ano rexia Chew 4 tablets (16 g) if needed for low blood sugar. 50 tablet 12 08/31/19 23 Active ALPRAZolam (Xanax) 1 MG tablet Take 1 mg by mouth if needed in the morning and at bedtime for anxiety. 08/28/19 23 Active dicyclomine (Bentyl) 10 MG capsule 08/30/19 23 Active Linzess 290 MCG capsule 08/10/19 23 Active magnesium oxide 500 MG tablet 08/28/19 23 Active venlafaxine XR (Effexor XR) 150 MG 24 hr capsule Take 150 mg by mouth in the morning. 06/23/20 22 Active senna (Senokot) 8.6 MG tablet 08/28/19 23 Active Simethicone Ultra Strength 180 MG capsule TAKE 1 CAPSULE BY MOUTH FOUR TIMES DAILY AFTER MEALS 07/26/20 22 Active prazosin (Minipress) 2 MG capsule TAKE 3 CAPSULES BY MOUTH AT BEDTIME 06/29/20 22 Active Creon 05029-10323 units capsule Take 1 capsule by mouth 4 times daily. 07/31/20 22 Active Menthol, Topical Analgesic, (Biofreeze Professional) 5 % gel use 4x/day prn pain 08/28/19 21 Active ondansetron (Zofran) 4 MG tablet Take 1 tablet (4 mg) by mouth every 8 (eight) hours if needed for nausea or vomiting. 60 tablet 1 02/11/20 24 Active Gentle Laxative 5 MG EC tablet Take 2 tablets by mouth at bedtime. 03/31/20 24 Active RABEprazole (Aciphex) 20 MG EC tablet Take 1 tablet by mouth 2 times daily. 03/24/20 24 Active Motegrity 2 MG tablet Take 1 tablet by mouth 1 (one) time each day. Active latanoprost (Xalatan) 0.005 % ophthalmic solution Administer 1 drop into both eyes at bedtime. 03/31/20 24 Active famotidine (Pepcid) 20 MG tablet Take 1 tablet by mouth at bedtime. 04/25/20 24 Active QUEtiapine (SEROquel) 400 MG tablet Take 800 mg by mouth at bedtime. 04/25/20 24 Active zolpidem (Ambien) 5 MG tablet Take 1 tablet by mouth if needed at bedtime for sleep. Active Estrogens Conjugated 0.625 MG/GM cream Insert 1 g into the vagina See administration instructions. 1 gram intravaginal daily for 2 weeks and then 1 gram intravaginal twice a week 30 g 2 05/05/20 24 Active naproxen (Naprosyn) 500 MG tabletIndicat ions:Recurren t UTI TAKE 1 TABLET(500 MG) BY MOUTH TWICE DAILY FOR 20 DAYS 40 tablet 08/08/20 24 Active metFORMIN (Glucophage) 500 MG tablet TAKE 1 TABLET BY MOUTH WITH BREAKFAST AND 1 TABLET WITH EVENING MEAL 60 tablet 3 10/05/19 25 Active metFORMIN (Glucophage) 500 MG tablet TAKE 1 TABLET BY MOUTH WITH BREAKFAST AND EVENING MEAL 60 tablet 3 05/30/20 24 2024 Discontinued Active Problems Problem Noted Date Diagnosed Date [...] Encounters Date Type Department Care Team Description 10/06/2024 10:20 AM EST Office Visit [facility] [address] [place] [phone] H/O hypokalemia (Primary Dx); Anemia, unspecified type 10/05/[address] [address] Ham Hay MD ER Follow-up 10/05/[address] [address] Ham Hay MD 10/04/[address] [address] Ham Hay MD Pre Op 10/03/2024 Orders Only GENERIC EXTERNAL DATA DEPARTMENT Provider, Generic External Data 09/22/[address] [address] Ham Hay MD No Show 09/22/[address] [address] Ham Hay MD Nurse Triage 09/19/2024 Orders Only [facility] External Provider, [facility] 08/25/[address] [address] Ham Hay MD Recurrent UTI 08/08/2024 10:00 AM EST Office Visit [address] [address] Ham Hay MD Recurrent UTI (Primary Dx); Type 2 diabetes mellitus without complication, without long-term current use of insulin ([facility]) 08/08/2024 Travel 08/07/[address] [address] Livia Jaramillo MA Chart Prep 08/07/[address] [address] Yolette Mohan MA returning call back 08/03/2024 Telephone [facility] [address] [place], [place] [phone] Yolette Mohan MA sep recalls from Last 3 Months Immunizations Name Administration [...] 12.8 oz) 025 10:06 AM EST Height 155.9 cm (5' 1.38 ) 08/08/2024 1 0:02 AM EST Body Mass Index 26.46 08/08/2024 10:02 AM EST Plan of Treatment Upcoming Encounters Date Type Department Care Team (Late st Contact Info) Description 12/12/2024 10:45 AM EDT Office Visit [facility] [address] [place] [phone] Name, MD Ham [address] [place] [address] Health Maintenance Due Date Last Done Comments [...] 06/30/2024 06/30/2023, 06/30/2023, 06/30/2023, Additional history exists Diabetes: Hemoglobin A1C 08/17/2024 024, 02/11/2024, 11/01/2023, Additional history exists SDOH Screening 10/31/2024 11/01/2023 Depression Monitoring (PHQ-9) 11/15/2024 05/17/2024, 05/17/2024 Diabetes: Urine Protein Screening 01/17/2025 01/18/2024, 01/19/2023, 11/11/2022 Lipid Panel 01/17/2025 01/18/2024, 01/07, 11/11/2022 Alcohol/Substance Use Screening 05/17/2025 05/17/2024 Depression Screening 05/17/2025 05/17/2024, 08/31/19 23 Mammogram 05/29/2025 05/29/2024, 05/10, 05/28/2023, Additional history exists Tobacco Screening 10/06/2025 10/06/2024 Colonoscopy 05/09/2026 05/09/2019 Colorectal Cancer Screening 05/09/2026 [...] Procedure Name Priority Date/Time Associated Diagnosis Comments MAGNESIUM Routine 10/06/2024 11:30 AM EST H/O hypokalemia IRON AND TOTAL IRON BINDING CAPACITY Routine 10/06/2024 11:30 AM EST Anemia, unspecified type FERRITIN Routine 10/06/2024 11:30 AM EST Anemia, unspecified type CBC WITH AUTO DIFFERENTIAL Routine 10/06/2024 11:30 AM EST Anemia, unspecified type BASIC METABOLIC PANEL Routine 10/06/2024 11:30 AM EST H/O hypokalemia BASIC METABOLIC PANEL Routine 10/03/2024 12:52 PM EST GLUCOSE, WHOLE BLOOD Routine 10/03/2024 11:50 AM EST COMPREHENSIVE METABOLIC PANEL Routine 10/03/2024 9:39 AM EST CBC WITH AUTO DIFFERENTIAL Routine 10/03/2024 9:39 AM EST GLUCOSE, WHOLE BLOOD Routine 10/03/2024 8:[address] UROGRAM WO CONTRAST Routine 5 9:51 AM EST POCT CREATININE GFR Routine 09/19/2024 9 :49 AM EST POCT GLUCOSE Routine 08/08/2024 10:05 AM EST Type 2 diabetes mellitus without complication, without long-term current use of insulin ([facility]) CYTOPATH-CELL ENHANCED Routine 4 4:23 PM EST CULTURE, URINE, ROUTINE Routine 07/27/2024 2:51 PM EST BI MAMMOGRAM SCREENING TOMOSYNTHESIS BILATERAL Routine 05/29/2024 11:38 AM EDT POCT GLYCOSYLATED HEMOGLOBIN (HGB A1C) Routine 05/17/2024 11:37 AM EDT Type 2 diabetes mellitus without complication, without long-term current use of insulin ([facility]/HCC) ALBUMIN, RANDOM URINE W/CREATININE Routine 01/18/2024 8:56 AM EDT Type 2 diabetes mellitus without complication, without long-term current use of insulin (CMS/HCC) LIPID PANEL, STANDARD Routine 01/18/2024 8:56 AM EDT Type 2 diabetes mellitus without complication, without long-term current use of insulin ([facility]) HM COLONOSCOPY Routine 05/09/2019 from Last 3 Months or Most Recently Relevant to Health Maintenance Results * (ABNORMAL) CBC auto differential (10/06/2024 11:30 AM EST) Only the most recent of2 resultswithin the time period is included. White Blood Count 6.0 4.8 - 10.8 X10*3/uL [facility] Red Blood Count 4.33 4.20 - 5.50 X10*6/uL [facility] Hemoglobin 12.0 12.0 - 16.0 g/dl [facility] Hematocrit 36.3(L) 37.0 - 47.0 % [facility] Mean Corpuscular Volume 83.8 80.0 - 98.0 fL [facility] Mean Corpuscular Hemoglobin 27.7 27.0 - 33.0 pg [facility] Mean Corpuscular HGB Conc 33.1 31.0 - 35.0 g/dl [facility] Red Cell Distribution Width 12.4 11.0 - 16.0 % [facility] Platelet Count 213 160 - 400 X10*3/uL [facility] Mean Platelet Volume 11.6 9.4 - 12.3 fL [facility] Neutrophils Percent Auto 48.8 45 - 73 % [facility] Imm Gran Pct Auto 0.3 0.0 - 0.4 % [facility] Lymphocytes Percent Auto 39.5 20 - 40 % [facility] Monocytes Percent Auto 7.0 2 - 11 % [facility] Eosinophils Percent Auto 3.4 0 - 4 % [facility] Basophils Percent Auto 1.0 0 - 2 % [facility] NRBC Pct Auto 0.0 0.0 - 0.2 /100WBC [facility] Neutrophils Absolute Auto 2.9 2.0 - 8.3 x10*3/uL [facility] Imm Gran Abs Auto 0.02 0.00 - 0.03 X10*3/uL [facility] Lymphocytes Absolute Auto 2.4 1.2 - 4.9 X10*3/uL [facility] Monocytes Absolute Auto 0.4 0.1 - 1.2 X10*3/uL [facility] Eosinophils Absolute Auto 0.2 0.0 - 0.4 X10*3/uL [facility] Basophils Absolute Auto 0.1 0.0 - 0.2 X10*3/uL [facility] NRBC Abs Auto 0.000 0.0 - 0.012 X10*3/uL [facility] Blood Venous blood specimen / Unknown 10/06/2024 11:30 AM EST 10/06/2024 11:30 AM EST us Perfecto Pat MD LAB BLOOD ORDERABLES Final Resul t [facility] [address] [place] [address] [phone] * Iron And Total Iron Binding Capacity (10/06/2024 11:30 AM EST) Iron 59 30 - 160 mcg/dL [facility] Total Iron Binding Capacity 288 228 - 428 mcg/dL [facility] Percent Iron Saturation 20 15 - 50 % [facility] Unsaturated Iron Binding 229 ug/dL [facility] Blood Venous blood specimen / Unknown 10/06/2024 11:30 AM EST 10/06/2024 11:30 AM EST us Perfecto Pat MD LAB BLOOD ORDERABLES Final Resul t Performing Organization Address [facility] Phone Number [facility] [address] [place] [phone] * (ABNORMAL) Magnesium (10/06/2024 11:30 AM EST) Magnesium 1.5(L) 1.6 - 2.6 mg/dL [facility] Blood Venous blood specimen / Unknown 10/06/2024 11:30 AM EST 10/06/2024 11:30 AM EST us Perfecto Pat MD LAB BLOOD ORDERABLES Final Resul t Performing Organization Address [facility] Phone Number [facility] [address] [place] [phone] * Ferritin (10/06/2024 11:30 AM EST) Pathologist [facility] Ferritin 29 10 - 250 ng/mL [facility] Blood Venous blood specimen / Unknown 10/06/2024 11:30 AM EST 10/06/2024 11:30 AM EST us Perfecto Pat MD LAB BLOOD ORDERABLES Final Resul t Performing Organization Address [facility] Phone Number [facility] [address] [place] [phone] * (ABNORMAL) Basic Metabolic Panel (10/06/2024 11:30 AM EST) Only the most recent of2 resultswithin the time period is included. Sodium 138 135 - 145 mmol/L [facility] Potassium 4.4 3.3 - 5.1 mmol/L [facility] Chloride 108 96 - 108 mmol/L [facility] Carbon Dioxide 20(L) 22 - 29 mmol/L [facility] Anion Gap 14 12 - 20 [facility] Urea Nitrogen (BUN) 18(H) 9 - 16 mg/dL [facility] Creatinine, Serum 0.93 0.5 - 1.4 mg/dL [facility] Estimated Glomerular Filt Rate >60 [facility] Comment:Chronic Kidney Disea se: Estimated GFR < 60 mL/min/1.67o4Gcxvut Kidney Disease: Estimated GFR < 15 mL/min/1.73m2 Glucose 302(H) 60 - 115 mg/dL [facility] Calcium 9.4 8.4 - 10.2 mg/dL [facility] Blood Venous blood specimen / Unknown 10/06/2024 11:30 AM EST 10/06/2024 11:30 AM EST us Perfecto Pat MD LAB BLOOD ORDERABLES Final Resul t Performing Organization Address City/[facility]/ZIP Co de Phone Number [facility] [address] [place] [phone] * (ABNORMAL) Glucose, Whole Blood (10/03/2024 11:50 AM EST) Only the most recent of2 resultswithin the time period is included. Glucose, Whole Blood 227(H) 60 - 115 mg/dL [facility] Comment:METER #: [id number] 10/03/2024 11:5 0 AM EST 10/03/2024 11:53 AM EST us Generic External Data Provider LAB BLOOD ORDERAB LES Final Result Performing Organization Address [facility]/ZIP Co de Phone Number [facility] [address] [place] [phone] * (ABNORMAL) Comprehensive Metabolic Panel (10/03/2024 9:39 AM EST) Sodium 140 135 - 145 mmol/L [facility] Potassium 2.6(LL) 3.3 - 5.1 mmol/L [facility] Comment:Critical value for P OTS: Results called to and read mariah SUMNER Person calling: FRANCIS Date: 10/03/24Time:1006 Chloride 119(H) 96 - 108 mmol/L [facility] Carbon Dioxide 15(L) 22 - 29 mmol/L [facility] Anion Gap 9(L) 12 - 20 [facility] Urea Nitrogen (BUN) 14 9 - 16 mg/dL [facility] Creatinine, Serum 0.67 0.5 - 1.4 mg/dL [facility] Creatinine Clr Calc Pharmacy 69.5 [facility] Comment:Provided height and weight: 154.94 cm,63.5 kg.eGFR (calculated from the MDRD study equation) and eCrCl(calculated from the Cockcroft-Gault equation) are based ondifferent parameters and may not yield comparable results.If eCrCl result is absurd, please check patient'sheight/weight. Estimated Glomerular Filt Rate >60 [facility] Comment:Chronic Kidney Disea se: Estimated GFR < 60 mL/min/1.79n9Rjivkb Kidney Disease: Estimated GFR < 15 mL/min/1.73m2 Glucose 261(H) 60 - 115 mg/dL [facility] Calcium 6.5(L) 8.4 - 10.2 mg/dL [facility] Bilirubin, Total 0.2 0.0 - 1.0 mg/dL [facility] Aspartate Amino Transferase 12 5 - 31 U/L [facility] Alanine Aminotransferase 12 0 - 31 U/L [facility] Total Protein 4.4(L) 6.5 - 8.0 g/dL [facility] Albumin Level 2.7(L) 3.5 - 5.0 g/dL [facility] Alkaline Phosphatase 77 39 - 117 U/L [facility] 10/03/2024 9:39 AM EST 10/03/2024 9:46 AM EST us Generic External Data Provider LAB BLOOD ORDERAB LES Final Result [facility] [address] [place] [phone] [phone] * CT Urogram w/o Contrast (09/19/2024 9:51 AM EST) Anatomical Region Laterality Modality Ureter, Upper urinary tract Comp uted Tomography 09/19/2024 9:51 AM EST Narrative 09/19/2024 10:45 AM EST ? [facility] ?[address] ?[place] [address] ? CT Scan Report ? Signed ? Patient: Colon Chris,Makenna ?MR#: [id number] ?? [id number] ? : 1955 ?Acct:[id number] ? Age/Sex: 69 / F ?ADM Date: 09/19/24 ? Loc: HO.CT ? Attending Dr: Robert Hoffman MD ? Ordering Physician: Robert Hoffman MD ?? Date of Service: 09/19/24 ?? Procedure(s): CT urogram ?? Accession Number(s): [id number] ? cc: Robert Hoffman MD; Name,Ham HERRING ? Report Number: ?? [id number]: Total DLP = ??503.00 mGy-cm ?? EXAMINATION: [...] AM ?? EST RP ? Dictated By: ?Larry Art MD ? Signed By: ?<Electronically signed by Larry Lo MD in OV> ? 09/19/24 1041 ? DD/ 0951 ? TD/TT: 09/19/24 1017 ? Community Liaison Officer: ? Procedure Note Thi, Antonia - 09/19/[address] [place] [address] [address] Scan Report Signed Patient: Makenna OrtizMR#: [id number] : 1955cct:[id number] Age/Sex: 69 / FADM Date: 09/19/24 Loc: HO.CT Attending Dr: Robert Hoffman MD Ordering Physician: Robert Hoffman MD Date of Service: 09/19/24 Procedure(s): CT urogram Accession Number(s): [id number] cc: Robert Hoffman MD; Name,Ham HERRING Report Number: [id number]: Total DLP = 503.00 mGy-cm EXAMINATION: CT [...] 09/19/24 1041 DD/ 0951 TD/TT: 09/19/24 1017 Community Liaison Officer: [facility] External Provider IMG CT PROCEDURES Final Result * POCT Creatinine GFR (09/19/2024 9:49 AM EST) POCT Creatinine 0.7 0.5 - 1.4 mg/dL [facility] GFR POC >60 [facility] Comment:Chronic Kidney Disea se: Estimated GFR < 60 mL/min/1.09t8Gdnzwt Kidney Disease: Estimated GFR < 15 mL/min/1.73m2 09/19/2024 9:49 AM EST 09/19/2024 10:25 AM EST Narrative [facility] - 09/19/2024 10:26 AM EST [id number] Generic External Data Provider LAB POINT OF CARE TEST DOCKED DEVICE ORDERABLES Final Result Performing Organization Address City/State/[facility] Co de Phone Number [facility] [address] [place] [phone] * (ABNORMAL) POCT Glucose (08/08/2024 10:05 AM EST) Glucose Blood, POC 305(A) 60 - 200 mg/dL QC Media Lot # [id number] Lot# Expiration Date 893,737 Blood Capillary blood specimen / Unknown 08/08/2024 10:05 AM EST Ham Hay MD POINT OF CARE TEST ENTER/EDIT OR DERABLES Final Result * Cytopath-cell enhanced (07/27/2024 4:23 PM EST) 07/27/2024 4:23 PM EST 07/28/2024 8:30 AM EST Narrative [facility] - 07/31/2024 10:25 AM EST ----- ------- Name: Makenna Ortiz ?Age/Sex: 69/F ? : 1955 Unit#: [id number] ?? Attend Dr: Robert Hoffman MD ?Re07/27/24 ?Status: DEP REF ? Location: HO.LNP ?Disch: ? ----- ------- SPEC : [id number] ?RECD: 07/28/24 ? STATUS: ??SOUT ? REQ NUM: [id number] ? LEI: 07/27/24-1622 ? SUBM DR: Robert Hoffman MD ? ENTERED: ??07/28/24-1128 ?SP TYPE: Cytology ? OTHR DR: Ham [...] Copies To: ?? Robert Hoffman MD ?? [facility] ?? [address] [place] [address] [address] ?? [place] [address] ?? [phone] ?? [email or web address] ?? Name,Ham HERRING ?? [address] [facility] ?? [place] [address] ?? [phone] ----- ------- Signed (signature on file) Cindi Fernandez MD 07/31/24 1025 ? ----- ------- ? END OF REPORT ? us Generic External Data Provider LAB CYTOLOGY ORDE RABLES Final Result Performing Organization Address [facility] Co de Phone Number [facility] [address] [place] [phone] [phone] * Culture, Urine, Routine (07/27/2024 2:51 PM EST) Urine Urine specimen obtained by clean catch procedure / Unknown 07/27/2024 2:51 PM EST 07/27/2024 4:24 PM EST Comment:UACC Narrative [facility] - 07/29/2024 10:55 AM EST Corynebacterium species Quant > 100,000 cfu/mL Susc N/A Susceptibility not routinely performed on this isolate. Specimen Source: Urine clean catch Generic External Data Provider LAB MICROBIOLOGY - GENERAL ORDERABLES Final Result Performing Organization Address [facility] Co de Phone Number [facility] [address] [place] [phone] [phone] * BI Mammogram Screening Tomosynthesis Bilateral (05/29/2024 11:38 AM EDT) Anatomical Region Laterality Modality Breast Bilateral Mammography 05/29/2024 11:3 8 AM EDT Narrative 06/09/2024 10:51 AM EDT ? [facility] [place] ? [address] ?[place] [address] ? Mammography Report ? Signed ? Patient: Colon Chris,Makenna ?MR#: [id number] ?? [id number] ? : 1955 ?Acct:[id number] ? Age/Sex: 69 / F ?ADM Date: 10/21/24 ? Loc: HO.MAMMO ? Attending Dr: Ham Hay MD ? Ordering Physician: Bharti,Ham HERRING ?Results: 1Negative ? Date of Service: 05/29/24 ?Follow Up: 1 Year From Orig ?? inal Mammogram ? Procedure(s): MM tomosynthesis screening BI ?? Accession Number(s): [id number] ? cc: Name,Ham MD ? EXAMINATION: ?? MM SCREENING DIGITAL BREAST [...] ??Margi Bird DO ??06/09/2024 10:48 AM EDT ?? RP ? Dictated By: ?Margi Bird DO ? Signed By: ?<Electronically signed by Margi Bird, DO in OV> ? 06/09/248 ? DD/ ? TD/TT: 05/29/24 1153 ? Community Liaison Officer: ? Procedure Note Donotuseinterpreter, Image - 06/09/2024 Elijah [facility] [address] [place] [address] Mammography Report Signed Patient: Katelin Ortiz#: [id number] : 1955cct:[id number] Age/Sex: 69 / FADM Date: 05/29/24 Loc: HO.MAMMO Attending Dr: [place] Hay MD Ordering Physician: Ham Hya MDResults: 1Negative Date of Service: 05/29/24Follow Up: 1 Year From Orig inal Mammogram Procedure(s): MM tomosynthesis screening BI Accession Number(s): [id number] cc: Ham Hay MD EXAMINATION: MM SCREENING [...] 06/09/24 1048 DD/ 1138 TD/TT: 05/29/24 1153 Community Liaison Officer: us Ham RAMIREZ BI PROCEDURES Edited Result - Final * (ABNORMAL) POCT glycosylated hemoglobin (Hgb A1c) (05/17/2024 11:37 AM EDT) Hemoglobin A1C 6.7(A) 4.0 - 6.0 % QC Media Lot # [id number] Lot# Expiration Date [id number] Blood Capillary blood specimen / Unknown 05/17/2024 11:37 AM EDT us Ham Hay MD POINT OF CARE TEST ENTER/EDIT OR DERABLES Final Result * Albumin, Random Urine W/Creatinine (01/18/2024 8:56 AM EDT) Creatinine, Urine 239.15 mg/dL [facility] Microalbumin Urine 18.0 mg/L [facility] Microalbum Creatinine Ratio Ur 7.5 <30 ug/mg cr [facility] Comment:Albumin/Creatinine R atio Reference Ranges: Normal: < 30 ug/mg creatinine Microalbuminuria: 30 - 300 ug/mg creatinineClinical Albuminuria: > 300 ug/mg creatinine Urine (Urine, Random) 01/18/2024 8:56 AM EDT 01/18/2024 11:08 AM EDT us Ham Hay MD LAB URINE ORDERABLES Final Resul t [facility] [address] [place] [address] [phone] * (ABNORMAL) Lipid Panel, Standard (01/18/2024 8:56 AM EDT) Triglycerides 225(H) <150 mg/dL [facility] Comment:Desirable Triglyceri de: less than 150 mg/dLBorderline High Triglyceride 150-199 mg/dLHigh Triglyceride: 200-499 mg/dLVery High Triglyceride: greater than or equal to 5OO mg/dL Cholesterol 184 <200 mg/dL [facility] Comment:Desirable Cholestero l: less than 200 mg/dLBorderline High Cholesterol: 200-239 mg/dLHigh Cholesterol: greater than 239 mg/dL LDL Cholesterol Calculated 80 <100 mg/dL [facility] Comment:Desirable LDL: less than 100 mg/dLNear Optimal/Above Optimal LDL: 110- 129 mg/dLBorderline High LDL: 130-159 mg/dLHigh LDL: 160-189 mg/dLVery High LDL: greater than or equal to 190 mg/dL HDL Cholesterol 59 >40 mg/dL [facility] Comment:Desirable HDL: great er than 40 mg/dL Note: This HDL assay may give artificially low results in patients with liver disease. Blood Venous blood specimen / Unknown 01/18/2024 8:56 AM EDT 01/18/2024 11:15 AM EDT Ham Hay MD LAB BLOOD ORDERABLES Final Resul t [facility] [address] [place], [place] [phone] * (ABNORMAL) Colonoscopy (05/09/2019) Colonoscopy Abnormal(A ) Normal [facility] External Provider HEALTH MAINTENANCE Final Result from Last 3 Months or Most Recently Relevant to Health Maintenance Insurance [facility] Care Teams [employer] Relationship Specialty Start Date End Date Name, MD Ham [address] [place] [address] PCP - General Family Medicine 01/28/16
--- OUTSIDE RECORDS SUMMARY | 2024-10-06 12:23 | XMS_ITS | Encounter Summary ---
Author Organization [employer] Address [address] [place] [address] 7 [place] [address] Care Team Providers Care Chair Frame Builder Name Role Phone Name, Ham HERRING Primary Care Provider [phone] Reason for Visit * Reason Onset Date Comments Nurse Triage 09/22/2024 Encounter Details Date Type Department Care Team ([facility] st Contact Info) Description 09/22/[address] [facility] MEDICINE [address] [place] [address] Name, MD Ham [address] [place] [address] Nurse Triage Social History Tobacco Use Types [...] 09/22/2024 11:55 AM EST Call returned to [facility] to triage below. Reports having lower back [...] Provider Department Center 09/22/2024 3:45 PM [facility] Insurance verified as active per Real Time Eligibility in [facility]. Video visit offer not recorded Positive [...] No answer LVM to return call to [facility] triage line [phone]. * Telephone Encounter - Juan C Andino [...] Description 12/12/2024 10:45 AM EDT Office Visit [facility] MEDICINE [address] [place] [address] Name, MD Ham [address] [place] [address] documented as of this encounter Visit Diagnoses Not on filedocumented in this encounter Additional Health Concerns Assessment Noted Time PHQ-9 Depression Total Score: 24 024 11:40 AM EDT documented as of this encounter Care Teams Chair Frame Builder Relationship Specialty Start Date End Date NameHam MD [address] [place] [address] PCP - General Family Medicine 01/28/16 documented as of this encounter
--- OUTSIDE RECORDS SUMMARY | 2024-10-06 12:23 | XMS_ITS | Encounter Summary ---
Author Organization [employer] Address [address] [place] [address] 7 [place] [address] Care Team Providers Care Drafter Landscape Name Role Phone Name, Ham HERRING Primary Care Provider [phone] Encounter Details Date Type Department Care Team (Late Contact Info) Description 10/27/2022 Orders Only [facility] MED & PEDS [address] [place], [place] [phone] Amber Everett LPN Social History Tobacco Use [...] Description 12/12/2024 10:45 AM EDT Office Visit [facility] MEDICINE [address] [place] [address] Name, MD Ham [address] [place] [address] documented as of this encounter Visit Diagnoses Not on filedocumented in this encounter Care Teams Drafter Landscape Relationship Specialty Start Date End Date NameHam MD [address] [place] [address] PCP - General Family Medicine 01/28/16 documented as of this encounter
--- OUTSIDE RECORDS SUMMARY | 2024-10-06 12:23 | XMS_ITS | Encounter Summary ---
Author Organization [email or web address] Address [address] [place] [address] 7 [place] [address] Care Team Providers Care Dental Technology Advisor Name Role Phone Name, Ham HERRING Primary Care Provider [phone] Reason for Visit * Reason Comments Med Refill Encounter Details Date Type Department Care Team ([facility] st Contact Info) Description 10/05/2024 Refill [facility] MEDICINE [address] [place] [address] Name, MD Ham [address] [place] [address] Social History Tobacco Use Types Packs/Day Years [...] Description 12/12/2024 10:45 AM EDT Office Visit [facility] MEDICINE [address] [place] [address] Name, MD Ham [address] [place] [address] documented as of this encounter Visit Diagnoses Not on filedocumented in this encounter Additional Health Concerns Assessment Noted Time PHQ-9 Depression Total Score: 24 024 11:40 AM EDT documented as of this encounter Care Teams Dental Technology Advisor Relationship Specialty Start Date End Date NameHam MD [address] [place] [address] PCP - General Family Medicine 01/28/16 documented as of this encounter
--- OUTSIDE RECORDS SUMMARY | 2024-10-06 12:23 | XMS_ITS | Encounter Summary ---
Author Organization [employer] Address [address] [place] [address] 7 [place] [address] Care Team Providers Care Route Delivery Clerk Name Role Phone Name, Ham HERRING Primary Care Provider [phone] Reason for Visit * Reason Onset Date Comments No Show 09/22/2024 Encounter Details Date Type Department Care Team ([facility] st Contact Info) Description 09/22/2024 Telephone [facility] MEDICINE [address] [place] [address] Name, MD Ham [address] [place] [address] No Show Social History Tobacco Use Types [...] EST TC placed to pt via S owner professional engineer (Jonathan ID#[id number]) as pt missed sick onsite for urinary [...] Description 12/12/2024 10:45 AM EDT Office Visit [facility] MEDICINE [address] [place] [address] Name, MD Ham [address] [place] [address] documented as of this encounter Visit Diagnoses Not on filedocumented in this encounter Additional Health Concerns Assessment Noted Time PHQ-9 Depression Total Score: 24 024 11:40 AM EDT documented as of this encounter Care Teams Route Delivery Clerk Relationship Specialty Start Date End Date Name, MD Ham [address] [place] [address] PCP - General Family Medicine 01/28/16 documented as of this encounter
--- OUTSIDE RECORDS SUMMARY | 2024-10-06 12:23 | XMS_ITS | Encounter Summary ---
Author Organization [employer] Address [address] [place] [address] 7 [place] [address] Care Team Providers Care It Security Manager Name Role Phone Name, Ham HERRING Primary Care Provider [phone] Reason for Visit * Reason Onset Date Comments ER Follow-up 10/05/2024 Encounter Details Date Type Department Care Team ([facility] st Contact Info) Description 10/05/2024 Telephone [facility] MEDICINE [address] [place] [address] Name, MD Ham [address] [place] [address] ER Follow-up Social History Tobacco Use Types Packs/Day Years [...] Telephone Encounter - Birdie Bazan RN - 10/05/2024 1:05 PM EST TC placed to pt via [employer] paraprofessional interpreter ([employer] ID#[id number]). Pt spoke Lithuanian. Pt reports she was discharged. Pt reports she is feeling weak. Pt reports she feels a little better since leaving the hospital, but feels weak. Pt reports the aches in her body felt better when they gave her potassium in the ED. Pt denies chest pain. Pt reports she is SOB all the time and it gets better and worse but is not a new symptom. Pt reports headache rated at 10/10 without medication and improves a little with tylenol to a 7-8/10. Pt reports her headache is not very bad right now, but rates it at a 8/10 after just taking tylenol. Pt reports dizziness/lightheadedness and blurry vision when standing on and off for the last 3 weeks. Pt states when she stands up she begins sweating and sharking and her vision becomes blurry. Pt states her blood sugar today is 250. Pt reports yesterday their whole body was aching and it has improved a bit since the ED. Pt reports knee pain/aching. Advised pt they should return to ED today based on symptoms. Pt states she cannot go today as she does not have a way to get there and will go tomorrow. Advised it is important for her to be evaluated today. Pt states they will come to [facility] tomorrow morning. Advised pt to go to ED for evaluation. RN encouraged pt to go to ED today. Pt agrees to go to ED tomorrow morning. Pt denies questions at this time. Message forwarded to provider. * Telephone Encounter - Samantha Mcintosh - 10/05/2024 12:41 PM EST Patient calling to report ED visit on : Date: 10/04/2024 [facility] [facility] Seen for: Low potassium , hyperglycemia Symptomatic No *if yes message should go to Triage Patient advised will forward to team nurse for follow up documented in this encounter Plan of Treatment Upcoming Encounters Date Type Department Care Team (Late st Contact Info) Description 12/12/2024 10:45 AM EDT Office Visit [facility] MEDICINE [address] [place] [address] Name, MD Ham [address] [place] [address] documented as of this encounter Visit Diagnoses Not on filedocumented in this encounter Additional Health Concerns Assessment Noted Time PHQ-9 Depression Total Score: 24 024 11:40 AM EDT documented as of this encounter Care Teams It Security Manager Relationship Specialty Start Date End Date Name, MD Ham [address] [place] [address] PCP - General Family Medicine 01/28/16 documented as of this encounter
--- OUTSIDE RECORDS SUMMARY | 2024-10-06 12:23 | XMS_ITS | Encounter Summary ---
Author Organization [email or web address] Address [address] [place] [address] 7 [place] [address] Care Team Providers Care Supervisor Title Name Role Phone Name, Ham HERRING Primary Care Provider [phone] Reason for Visit * Reason Comments Med Refill Encounter Details Date Type Department Care Team ([facility] st Contact Info) Description 05/30/2024 Refill [facility] MEDICINE [address] [place] [address] Name, MD Ham [address] [place] [address] Social History Tobacco Use Types Packs/Day Years [...] Description 12/12/2024 10:45 AM EDT Office Visit [facility] MEDICINE [address] [place] [address] Name, MD Ham [address] [place] [address] documented as of this encounter Visit Diagnoses Not on filedocumented in this encounter Additional Health Concerns Assessment Noted Time PHQ-9 Depression Total Score: 24 024 11:40 AM EDT documented as of this encounter Care Teams Supervisor Title Relationship Specialty Start Date End Date NameHam MD [address] [place] [address] PCP - General Family Medicine 01/28/16 documented as of this encounter
--- OUTSIDE RECORDS SUMMARY | 2024-10-06 12:23 | XMS_ITS | Encounter Summary ---
Author Organization [employer] Address [address] [place] [address] 7t [place] [address] Care Team Providers Care Loan Assistant Name Role Phone Name, Ham HERRING Primary Care Provider [phone] Encounter Details Date Type Department Care Team (Late st Contact Info) Description 09/19/2024 Orders Only [facility] External Provider, [facility] Social History Tobacco Use Types Packs/Day Years [...] Description 12/12/2024 10:45 AM EDT Office Visit [facility] MEDIC[facility] [address] [facility] [place] [address] Name, MD Ham [address] [facility] [place] [address] documented as of this encounter Procedures Procedure Name Priority Date/Time Associated Diagnosis Comments CT UROGRAM WO CONTRAST Routine 09/19/2024 9:51 AM EST documented in this encounter Results * CT Urogram w/o Contrast (09/19/2024 9:51 AM EST) Anatomical Region Laterality Modality Ureter, Upper urinary tract Comp uted Tomography 09/19/2024 9:51 AM EST Narrative 09/19/2024 10:45 AM EST ? [facility] ?[address] ?[place] [address] ? CT Scan Report ? Signed ? Patient: Colon Chris,Makenna ?MR#: [id number] ?? [id number] ? : 1955 ?Acct:[id number] ? Age/Sex: 69 / F ?ADM Date: 09/19/24 ? Loc: HO.CT ? Attending Dr: Robert Hoffman MD ? Ordering Physician: Robert Hoffman MD ?? Date of Service: 09/19/24 ?? Procedure(s): CT urogram ?? Accession Number(s): [id number] ? cc: Robert Hoffman MD; Name,Ham HERRING ? Report Number: ?? [id number]: Total DLP = ??503.00 mGy-cm ?? EXAMINATION: [...] DD/ 0951 ? TD/TT: 09/19/24 1017 ? Supply Chain Analyst: ? Procedure Note Thi, Image - 09/19/[address] [address] [address] Scan Report Signed Patient: Makenna Ortiz#: [id number] : 7Acct:[id number] Age/Sex: 69 / FADM Date: 09/19/24 Loc: HO.CT Attending Dr: Robert Hoffman MD Ordering Physician: Robert Hoffman MD Date of Service: 09/19/24 Procedure(s): CT urogram Accession Number(s): [id number] cc: Robert Hoffman MD; Name,Ham Report Number: [id number]: Total DLP = 503.00 mGy-cm EXAMINATION: CT [...] by: Larry Benton MD 09/19/2024 10:41 AM [facility] [place] [place] Dictated By: Larry Art MD Signed By: <Electronically signed by Larry Lo MDin OV> 09/19/24 1041 DD/ 0951 TD/TT: 09/19/24 1017 Supply Chain Analyst: [facility] External Provider IMG CT PROCEDURES Final Result documented in this encounter Visit Diagnoses Not on filedocumented in this encounter Additional Health Concerns Assessment Noted Time PHQ-9 Depression Total Score: 24 024 11:40 AM EDT documented as of this encounter Care Teams Loan Assistant Relationship Specialty Start Date End Date Name, MD Ham [address] [place] [address] PCP - General Family Medicine 01/28/16 documented as of this encounter
--- OUTSIDE RECORDS SUMMARY | 2024-10-06 12:23 | XMS_ITS | Encounter Summary ---
Author Organization [employer] Address [address] [place] [address] [place] [address] Care Team Providers Care Aircraft Structure Mechanic Name Role Phone NameHam MD Primary Care Provider Reason for Visit * Reason Comments Med Refill Encounter Details Date Type Department Care Team (Late Contact Info) Description 04/18/2023 Refill [facility] MEDICINE [address] [place] [address] [phone] NameHam MD [address] [place] [address] [phone] Social History Tobacco Use Types Packs/Day Years [...] Description 12/12/2024 10:45 AM EDT Office Visit [facility] MEDICINE [address] [place] [address] [phone] Ham Hay MD [address] [place] [address] [phone] documented as of this encounter Visit Diagnoses Not on filedocumented in this encounter Care Teams Aircraft Structure Mechanic Relationship Specialty Start Date End Date Ham Hay, MD [address] [place] [address] PCP - General Family Medicine 01/28/16 documented as of this encounter
--- OUTSIDE RECORDS SUMMARY | 2024-10-06 12:23 | XMS_ITS | Encounter Summary ---
Author Organization [employer] Address [address] [facility] 7t [place] [address] Care Team Providers Care Hand Tacker Name Role Phone Name, Ham HERRING Primary Care Provider [phone] Reason for Visit * Reason Comments Med Refill Encounter Details Date Type Department Care Team ([facility] st Contact Info) Description 04/18/2024 Refill [facility]ALK[facility] [address] [place], [place] [phone] Name, MD Ham [address] [place] [address] Acute herpes zoster neuropathy Social History Tobacco [...] EDT Office Visit [facility] MEDICINE [address] [place] [address] Name, MD Ham [address] [place] [address] documented as of this encounter Visit Diagnoses Diagnosis Acute herpes zoster neuropathy documented in this encounter Additional Health Concerns Assessment Noted Time PHQ-9 Depression Total Score: 11 024 3:36 PM EDT documented as of this encounter Care Teams Hand Tacker Relationship Specialty Start Date End Date NameHam MD [address] [place] [address] PCP - General Family Medicine 01/28/16 documented as of this encounter
--- OUTSIDE RECORDS SUMMARY | 2024-10-06 12:23 | XMS_ITS | Encounter Summary ---
Author Organization [employer] Address [address] [place] [address] 7 [place] [address] Care Team Providers Care Music Store Manager Name Role Phone Name, Ham HERRING Primary Care Provider [phone] Reason for Visit * Reason Onset Date Comments Pre Op 10/04/2024 Encounter Details Date Type Department Care Team ([facility] st Contact Info) Description 10/04/2024 Telephone [facility] MEDICINE [address] [place] [address] Name, MD Ham [address] [place] [address] Pre Op Social History Tobacco Use Types Packs/Day Years [...] encounter Miscellaneous Notes * Telephone Encounter - Tristan Del Rio - 10/04/2024 2:52 PM EST Date of Surgery: 11/07/24 Surgical procedure being done: Cistoscopy with [place] distention of the Blader Type of anesthesia: general anesthesia Lab needed: Yes EKG: Yes Surgeon's name: Dr. Hoffman Facility name: [facility] Surgeon's office number: [phone] Surgeon's office fax number: [phone] Contact name (person you spoke with): Xiomara Last office note from surgeon requested: No Send Message to Yajaira Ramírez and Orestes Allan documented in this encounter Plan of Treatment Upcoming Encounters Date Type Department Care Team (Late st Contact Info) Description 12/12/2024 10:45 AM EDT Office Visit [facility] MEDICINE [address] [place] [address] Name, MD Ham [address] [place] [address] documented as of this encounter Visit Diagnoses Not on filedocumented in this encounter Additional Health Concerns Assessment Noted Time PHQ-9 Depression Total Score: 24 024 11:40 AM EDT documented as of this encounter Care Teams Music Store Manager Relationship Specialty Start Date End Date NameHam MD [address] [place] [address] PCP - General Family Medicine 01/28/16 documented as of this encounter
--- OUTSIDE RECORDS SUMMARY | 2024-10-06 12:23 | XMS_ITS | Encounter Summary ---
Author Organization [employer] Address [address] [place] [address] 7 [place] [address] Care Team Providers Care Plaster Tender Name Role Phone NameHam MD Primary Care Provider [phone] Encounter Details Date Type Department Care Team (Late Contact Info) Description 01/19/2023 Abstract [facility] MEDICINE [address] [place] [address] Ham Hay MD [address] [place] [address] [phone] Social History Tobacco Use Types Packs/Day Years [...] Office Visit [facility] MEDICINE [address] [place] [address] [phone] NameHam MD [address] [place] [address] [phone] documented as of this encounter Visit Diagnoses Not on filedocumented in this encounter Care Teams Plaster Tender Relationship Specialty Start Date End Date NameHam MD [address] [place] [address] PCP - General Family Medicine 01/28/16 documented as of this encounter
--- OUTSIDE RECORDS SUMMARY | 2024-10-06 12:23 | XMS_ITS | Encounter Summary ---
Author Organization [employer] Address [address] [place] [address] 7 [place] [address] Care Team Providers Care Soccer Player Name Role Phone Name, Ham HERRING Primary Care Provider [phone] Reason for Visit * Reason Onset Date Comments FYI 04/21/2024 Encounter Details Date Type Department Care Team ([facility] st Contact Info) Description 04/21/2024 Telephone [facility] MEDICINE [address] [place] [address] Name, MD Ham [address] [place] [address] FY Social History Tobacco Use Types Packs/Day [...] - 04/21/2024 3:49 PM EDT Tc from [facility] calling to inform pcp pt has been admitted into hospital. If any questions you can contact [facility] at [phone]. documented in this encounter Plan of Treatment Upcoming Encounters Date Type Department Care Team (Late st Contact Info) Description 12/12/2024 10:45 AM EDT Office Visit [facility] MEDICINE [address] [place] [address] Name, MD Ham [address] [place] [address] documented as of this encounter Visit Diagnoses Not on filedocumented in this encounter Additional Health Concerns Assessment Noted Time PHQ-9 Depression Total Score: 11 024 3:36 PM EDT documented as of this encounter Care Teams Soccer Player Relationship Specialty Start Date End Date Name, MD Ham [address] [place] [address] PCP - General Family Medicine 01/28/16 documented as of this encounter
--- OUTSIDE RECORDS SUMMARY | 2024-10-06 12:23 | XMS_ITS | Encounter Summary ---
Author Organization [employer] Address [address] [place] [address] 7 [place] [address] Care Team Providers Care Fisher Troll Line Name Role Phone Name, Ham HERRING Primary Care Provider [phone] Encounter Details Date Type Department Care Team (Late st Contact Info) Description 07/14/2022 Abstract [facility] MEDICINE [address] [place] [address] Provider, MD Meghan Social History Tobacco Use [...] Description 12/12/2024 10:45 AM EDT Office Visit [facility] MEDICINE [address] [place] [address] NameHam MD 230 [place] [address] documented as of this encounter Visit Diagnoses Not on filedocumented in this encounter Care Teams Fisher Troll Line Relationship Specialty Start Date End Date Ham Hay MD [address] [place] [address] PCP - General Family Medicine 01/28/16 documented as of this encounter
[2024-10-06 12:26] LABS: Folate 11.9 ng/mL (> or = 4.0); Vitamin B12 538 pg/mL (200-900)
== END 2024-10-06 10:49 | disposition home or self-care (01) ==
LOC: HO.HHCL 10:48
PROVIDERS: Visit Provider Emergency Medicine
DX: Z86.39 Personal history of other endocrine, nutritional and metabolic disease (principal); D64.9 Anemia, unspecified
CPT/HCPCS: 36415; 80048; 82607; 82728; 82746; 83540; 83735; 85025

== ENCOUNTER 2024-11-07 06:14 | Day surgery (SDC) | payer OTHER, SELFPAY ==
[2024-11-02 14:17] VITALS: BMI 24.7
--- NOTE | 2024-11-06 10:16 | HO.ANESPROP2 ---
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 Mother Diabetes Melanoma Family history of hypertension Family history of diabetes mellitus Surgical History Surgical History History of esophagogastroduodenoscopy (EGD) Hx of colonoscopy History of Problems with Anesthesia: No Social History Social History Household Members: Significant Other Housing: House Are you a primary patient centered care specialist to a significant other at home: No Do you presently have visiting nurse or other home services: No Alcohol intake: never Patient Tobacco Use Status: Never used Tobacco Second Hand Smoke Exposure: No Use of substances other than those prescribed or required for medical reasons: No Have you been hit, kicked, punched, or otherwise hurt by someone within the past year? If so, by whom?: No Are you DNR?: No Advance Directives: No (will bring dos) Advance Directives Information Provided: Yes Advance Directives on File: No Recently lost weight without trying: No Nutrition Risks: No Nutritional Risk Patient : No Poor oral hygiene: No service: No Current occupational status: disabled Sexual orientation: Straight/Heterosexual Meds Allergies Allergy/AdvReac Type Severity Reaction Status Date / Time No Known Allergies Allergy Verified 11/02/24 14:15 [No Known Allergies*] Home Medications ?Medication ?Instructions ?Recorded ?Confirmed ?Last Taken ?Type brimonidine 0.2 %-timolol 0.5 % 1 drp ophthalmic-Right BID 12/13/21 11/02/24 3 Days Ago History eye drops (Combigan) ~04/16/24 latanoprost 0.005 % eye drops 1 drp ophthalmic (eye) BID 11/10/22 11/02/24 3 Days Ago History ~04/16/24 alprazolam 1 mg tablet 1 mg PO QID PRN Anxiety 07/11/24 11/02/24 Unknown History hydroxyzine pamoate 50 mg capsule 50 mg PO BID PRN Anxiety 07/11/24 11/02/24 Unknown History methylphenidate HCl 20 mg 20 mg PO BID 07/11/24 11/02/24 Unknown History tablet,extended release quetiapine 400 mg tablet,extended 400 mg PO BEDTIME 07/11/24 11/02/24 Unknown History release 24 hr venlafaxine 75 mg capsule,extended 150 mg PO DAILY 07/11/24 11/02/24 Unknown History release 24 hr zolpidem 10 mg tablet 10 mg PO BEDTIME PRN Insomnia 07/11/24 11/02/24 Unknown History dulaglutide 0.75 mg/0.5 mL 0.75 mg subcut QWEEK 11/02/24 11/02/24 10/31/24 History subcutaneous pen injector (Trulicity) Exam Height,Weight and Vital Signs: Height 5 ft 2 in Weight 61.235 kg Pertinent Lab Results Pertinent Lab Results: Laboratory Tests 10/06/24 11:30 WBC 6.0 Hgb 12.0 D Hct 36.3 L D Plt Count 213 Sodium 138 Potassium 4.4 Chloride 108 Carbon Dioxide 20 L BUN 18 H Creatinine 0.93 Narrative Narrative: EKG 04/2024 Vent. Rate : 096 BPM Atrial Rate : 096 BPM P-R Int : 178 ms QRS Dur : 078 ms QT Int : 360 ms P-R-T Axes : 058 099 081 degrees QTc Int : 454 ms Normal sinus rhythm Rightward axis Nonspecific T wave abnormality Abnormal ECG When compared with ECG of 06-MAY-2022 20:06, No significant change was found Assessment and Plan Assessment Anesthesia Assessment: Chart Reviewed Final Anesthetic Review History of Problems with Anesthesia: No
[2024-11-07] VITALS (8 sets, daily range): BP systolic 96–128; BP diastolic 67–74; PULSE 77–86; RESP 14–16; TEMP 36.2–36.8; O2SAT 93–96
[2024-11-07 07:57] LABS: Glucose, Whole Blood 168 mg/dL (60-115)
--- NOTE | 2024-11-07 08:09 | HO.ANESPROP2 ---
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, disseminated (Acute) Nausea and vomiting (Acute) LUQ pain (Acute) Diverticulitis (Acute) Ileus (Acute) GERD (gastroesophageal reflux disease) (Acute) Chronic idiopathic constipation (Acute) Past Medical History Medical History Bipolar disorder PTSD (post-traumatic stress disorder) Depression Anxiety Fibromyalgia Schizophrenia Anemia Ileus Tubular adenoma of colon History of pancreatitis Irritable bowel syndrome with constipation Diverticulitis GERD (gastroesophageal reflux disease) Chronic idiopathic constipation Functional capacity: independent ambulation Patient : No Family History Family History Father No problems noted. Mother Diabetes Melanoma Family history of hypertension Family history of diabetes mellitus Family history of problems with anesthesia: No Surgical History Surgical History History of esophagogastroduodenoscopy (EGD) Hx of colonoscopy History of Problems with Anesthesia: No Social History Social History Household Members: Significant Other Housing: House Are you a primary care professional to a significant other at home: No Do you presently have visiting nurse or other home services: No Alcohol intake: never Patient Tobacco Use Status: Never used Tobacco Second Hand Smoke Exposure: No Use of substances other than those prescribed or required for medical reasons: No Have you been hit, kicked, punched, or otherwise hurt by someone within the past year? If so, by whom?: No Are you DNR?: No Advance Directives: No (will bring dos) Advance Directives Information Provided: Yes Advance Directives on File: No Recently lost weight without trying: No Nutrition Risks: No Nutritional Risk Poor oral hygiene: No service: No Current occupational status: disabled Sexual orientation: Straight/Heterosexual Meds Allergies Allergy/AdvReac Type Severity Reaction Status Date / Time No Known Allergies Allergy Verified 11/02/24 14:15 [No Known Allergies*] Active Medications: Current Medications Lactated Ringer's (Lr) 1,000 mls @ 100 mls/hr IVCONT .Q10H ARETHA Home Medications ?Medication ?Instructions ?Recorded ?Confirmed ?Last Taken ?Type brimonidine 0.2 %-timolol 0.5 % 1 drp ophthalmic-Right BID 12/13/21 11/02/24 3 Days Ago History eye drops (Combigan) ~04/16/24 latanoprost 0.005 % eye drops 1 drp ophthalmic (eye) BID 11/10/22 11/02/24 3 Days Ago History ~04/16/24 alprazolam 1 mg tablet 1 mg PO QID PRN Anxiety 07/11/24 11/02/24 Unknown History hydroxyzine pamoate 50 mg capsule 50 mg PO BID PRN Anxiety 07/11/24 11/02/24 Unknown History methylphenidate HCl 20 mg 20 mg PO BID 07/11/24 11/02/24 Unknown History tablet,extended release quetiapine 400 mg tablet,extended 400 mg PO BEDTIME 07/11/24 11/02/24 Unknown History release 24 hr venlafaxine 75 mg capsule,extended 150 mg PO DAILY 07/11/24 11/02/24 Unknown History release 24 hr zolpidem 10 mg tablet 10 mg PO BEDTIME PRN Insomnia 07/11/24 11/02/24 Unknown History dulaglutide 0.75 mg/0.5 mL 0.75 mg subcut QWEEK 11/02/24 11/02/24 10/31/24 History subcutaneous pen injector (Trulicity) Exam Height,Weight and Vital Signs: Height 5 ft 2 in Weight 61.235 kg Pertinent Lab Results Pertinent Lab Results: Laboratory Tests 11/07/24 07:41 POC Glucose 168 H Airway Mallampati Class: III TM Dist: >3cm Neck ROM: Full Heart: RRR Lungs: CTA Assessment and Plan Assessment Anesthesia Assessment: Anesthesia Plan Discussed and Smoking Cess. Discussed Final Anesthetic Review Family History of Problems with Anesthesia: No History of Problems with Anesthesia: No NPO: Yes ASA Class: III Final Preanesthetic Review: Meds/Allgs Chart Reviewed, Consent Obtained/Reviewed and Anes Risks/Benef Reviewed Patient Risk: Intermediate Procedure Risk: Low Anesthetic Plan Anesthetic Plan: GA Disposition: Standard PACU
--- NOTE | 2024-11-07 08:12 | W.PM.OPN ---
Operative Note Operative Note Date of Service: 11/07/24 Narrative: PREOP DIAGNOSIS: Dysuria, microscopic hematuria POSTOP DIAGNOSIS: Dysuria, microscopic hematuria, urethritis PROCEDURE: CYSTOSCOPY HYDRODISTENTION Anethesia: General Surgeon: Dr. Robert Hoffman Details of procedure: The patient was brought into the operating room placed on the OR table in supine position. 2 g of Ancef IV. General anesthesia was administered. The patient was repositioned into lithotomy position, prepped and draped in the usual sterile fashion. Time-out was done per protocol. A 22 fr cystoscope was placed transurethrally into the bladder. Urine was drained from the bladder measuring 80 mL.The right and left ureteral orifices were visualized. The entire bladder was visualized. There were atrophic changes noted at the urethral mucosa and bladder neck. There were no suspicious bladder lesions seen. The bladder was filled with sterile water at 80 cm of water pressure under gravity. The bladder was distended for 2 minutes. Bladder capacity measured 825 mL. Revisualization of the bladder, no glomerulations. No Hunner ulcerations. The bladder was refilled with sterile water again at 80 cm of water pressure under gravity. The bladder was distended for 3 minutes. The fluid was drained from the bladder and measured 825 mL. The cystoscope was removed. 2% lidocaine urojet was passed transurethrally, Solution of (1% lidocaine plain, 15 mL, 0.5 % Marcaine 15 mL mixed with 30, 000 units of heparin concentration 5000 units per mL total of 6 mL hepaine) instilled transurethrally into the bladder. Belladonna rectal supository administered. The patient was brought out of anesthesia and taken to recovery in stable condition. Complications: None EBL: minimal (<5 mL) Drains: none
--- NOTE | 2024-11-07 08:12 | MHC.SHP ---
Pre-Procedural Eval Section A - 24 Hr Update-Section A only Date of Service: 11/07/24 The patient is an INPATIENT: No The patient has been examined within 24 hours of the surgical procedure. The History & Physical has been completed within 30 days and I have reviewed it.: Yes Section B - Complete if H&P > 30 days Chief Complaint: Hematuria,dysuria Allergies: Allergies Allergy/AdvReac Type Severity Reaction Status Date / Time No Known Allergies Allergy Verified 11/02/24 14:15 [No Known Allergies*] Plan Diagnosis/Plan: Unchanged I have reviewed the history and physical and performed a pertinent physical examination on my patient. No changes have occurred unless specified. Cystoscopy. Hydrodistension. Discussed risks to include but not limited to, blood in the urine, burning with urination, urgency. Time Spent With Patient Time: Total time managing care of this patient today ____ minutes.
[2024-11-07] MEDS: Lactated Ringers 1,000 ML 100 ML IVCONT (08:13)
[2024-11-07] MEDS: ceFAZolin Sodium/Dextrose,Iso 2 GM/50 ML PIGGYBACK IV (08:46)
[2024-11-07] MEDS: Phenazopyridine HCL 200 MG TABLET PO (10:17)
--- NOTE | 2024-11-07 11:10 | HO.POSTANES ---
Post Anesthesia Evaluation Post Anesthesia Evaluation Date of Service: 11/07/24 Vital Signs: Vital Signs Temp Pulse Resp BP Pulse Ox O2 Del Method 11/07/24 10:29 97.1 F 77 16 109/68 96 Room Air 11/07/24 10:14 97.1 F 81 16 121/72 96 Room Air 11/07/24 09:59 80 16 119/73 96 Room Air 11/07/24 09:44 81 16 110/71 93 Room Air 11/07/24 09:39 82 16 112/70 93 Room Air 11/07/24 09:34 82 16 115/74 96 Room Air 11/07/24 09:29 97.1 F 86 16 128/74 96 Room Air 11/07/24 07:30 98.3 F 81 14 96/67 96 Room Air Anesthesia: General LMA Mental Status: Awake Pain Control: Satisfactory Nausea/Vomiting: None Hydration: Adequate Anesthesia-Related Issues: No Anes. Related Issues
== END 2024-11-07 10:57 | disposition home or self-care (01) ==
PROVIDERS: PCP Internal Medicine Geriatric Medicine; Visit Provider Urology
PROC: 0T7B7ZZ Dilation of Bladder, Via Natural or Artificial Opening (ICD-10-PCS; CPT 52260; principal; 2024-11-07 08:30)
DX: R30.0 Dysuria (principal); R31.29 Other microscopic hematuria; N34.2 Other urethritis; E11.9 Type 2 diabetes mellitus without complications; Z79.84 Long term (current) use of oral hypoglycemic drugs; Z79.85 Long-term (current) use of injectable non-insulin antidiabetic drugs; Z79.1 Long term (current) use of non-steroidal anti-inflammatories (NSAID); Z79.899 Other long term (current) drug therapy
CPT/HCPCS: 52260; 82947; 87086; J0131; J0690; J1100; J1644; J2003; J2250; J2405; J2704; J2795; J3010

== ENCOUNTER → 2024-11-07 06:14 | Outpatient (BNV) | payer OTHER, SELFPAY | PROVIDERS: PCP Internal Medicine Geriatric Medicine; Visit Provider Urology | DX: R30.0 Dysuria (principal); R31.29 Other microscopic hematuria | CPT/HCPCS: 52260 ==

== ENCOUNTER 2024-11-23 15:17 | Outpatient (AMB) | payer OTHER, SELFPAY ==
--- NOTE | 2024-11-23 15:26 | MHC.OFFVIS ---
Intake Visit Reasons: Post- OP Intake Note: Patient is present for a follow up/hydrodistention Urology Medications: None Antibiotic Allergy: None Blood Thinner: None PVR:0ml Accompanied by: Self / Same As Patient Allergies No Known Allergies [No Known Allergies*] Allergy (Verified 11/23/24 15:28) HPI Comments Details: 11/23/24-- History of Present Illness The patient is a 69-year-old female presenting with a follow-up on a urinary tract infection and management of atrophic vaginitis. Post-procedure, the patient experienced symptoms consistent with a urinary tract infection, which were effectively treated with antibiotics. Initially, there was a concern about persistent infection, but symptoms resolved with prescribed treatments. Complaints also included redness and inflammation at the urethral opening associated with estrogen deficiency post-menopause. The patient has been using Estrace cream to counteract this issue, about which the instructions include topical application in the affected area. The patient follows a prescribed regime, maintaining nocturnal application routine daily. Urinary Symptoms Review - Post-procedural symptoms of urinary tract infection resolved with antibiotic treatment. - Inflammation and redness detected at the urethral opening. - Application of topical Estrace cream to vaginal tissue for management of estrogen deficiency-related symptoms. Results Discussion Notes I discussed the resolution of the patient's urinary tract infection following antibiotic treatment. We reviewed the use of Estrace cream for symptoms of atrophic vaginitis due to postmenopausal estrogen deficiency. The discussion included the importance of adhering to the regimen and ensuring proper application technique. We agreed on continuing with the estrogen cream, and the patient expressed understanding and agreement. A plan for a follow-up in six months was confirmed to monitor ongoing management. Plan No immediate intervention is necessary for the resolved urinary tract infection. Continued use of Estrace cream is advised for management of atrophic vaginitis. The patient will apply the cream nightly to the affected area to mitigate symptoms of estrogen deficiency and maintain tissue integrity. Patient has been educated on proper application and understands the benefit of adherence to prescribed treatment. Follow-up scheduled in six months for reassessment and further management if necessary. Patient Instructions - Continue applying Estrace cream nightly as prescribed. - Apply a small amount to the affected area using an applicator or finger. - Call if you run out of refills to arrange for a prescription continuation. - Follow up in six months for review and further guidance. - Return if symptoms of urinary infection recur or if there are concerns regarding treatment. Patient was informed and verbally consented to the use of an ambient scribe for clinic note documentation during this visit. 07/27/24--Makenna is here for evaluation of recurrent UTI's. She states that she has urinary symptoms of burning with urination and it feels like something sharp in her urethra. She has urinary frequency during the daytime every hour. She is up 1 time at night to urinate. She states that she has had visible blood in the urine. She states that she saw a urologist in the past and had a trial of InterStim that was painful and did not work. Chart reviewed, No recent Upper tract imaging, CTAP-- 12/2021 - tiny calculi right kidney 1-3 mm. I have discussed further evaluation with CT urogram and outpatient cystoscopy. Will send today's urine for cytology and culture. Will empirically place her on doxycycline 100 mg twice a day for 10 days. Labs: All three Urine c/s mixed bacteria: 04/20/24, 05/05/24, 06/26/24 [facility] Medical History Bipolar disorder PTSD (post-traumatic stress disorder) Depression Anxiety Fibromyalgia Schizophrenia Anemia Ileus Tubular adenoma of colon History of pancreatitis Irritable bowel syndrome with constipation Diverticulitis GERD (gastroesophageal reflux disease) Chronic idiopathic constipation Surgical History History of esophagogastroduodenoscopy (EGD) Hx of colonoscopy Family History Father No problems noted. Mother Diabetes Melanoma Family history of hypertension Family history of diabetes mellitus Social History Household Members: Significant Other Housing: House Are you a primary hospice patient care secretary to a significant other at home: No Do you presently have visiting nurse or other home services: No Alcohol intake: never Patient Tobacco Use Status: Never used Tobacco Second Hand Smoke Exposure: No service: No Current occupational status: disabled Sexual orientation: Straight/Heterosexual Results AMB Urinalysis, Automated UA Leukoctes 0 Micha/uL Last Edit by Jojo Breaux on 11/23/24 16:33 UA Nitrite Negative Last Edit by Jojo Breaux on 11/23/24 16:33 UA Urobilinogen 0.2 mg/dL Last Edit by Jojo Breaux on 11/23/24 16:33 UA Protein 30 mg/dL Last Edit by Jojo Breaux on 11/23/24 16:33 UA pH 5.0 Last Edit by Jojo Breaux on 11/23/24 16:33 UA Blood 0 Raulito/uL Last Edit by Jojo Breaux on 11/23/24 16:33 UA Specific [place] 1.030 Last Edit by Jojo Breaux on 11/23/24 16:33 UA Ketone Positive Last Edit by Jojo Breaux on 11/23/24 16:33 UA Bilirubin 0 mg/dL Last Edit by Jojo Breaux on 11/23/24 16:33 UA Glucose 1000 mg/dL Last Edit by Jojo Breaux on 11/23/24 16:33 Assessment & Plan Assessment & Plan Orders: Orders AMB Urinalysis Automated Today Z13.9 - Encounter for screening, unspecified Coding
--- OUTSIDE RECORDS SUMMARY | 2024-11-23 17:59 | XMS_ITS | Encounter Summary ---
Author Organization [employer] Address [address] [place] [address] [address] [place] [address] Care Team Providers Care Foundry Process Engineer Name Role Phone NameHam MD Primary Care Provider [phone] Reason for Visit * Reason Comments Med Refill Encounter Details Date Type Department Care Team (Late Contact Info) Description 04/18/2023 Refill [facility] [address] [place] [phone] NameHam MD [address] [place] [address] [phone] Social History Tobacco Use Types Packs/Day Years [...] Description 12/12/2024 10:45 AM EDT Office Visit [facility] [address] [place] [address] [phone] Ham Hay MD [address] [place] [address] [phone] documented as of this encounter Visit Diagnoses Not on filedocumented in this encounter Care Teams Foundry Process Engineer Relationship Specialty Start Date End Date Ham Hay, MD [address] [place] [address] PCP - General Family Medicine 01/28/16 documented as of this encounter
--- OUTSIDE RECORDS SUMMARY | 2024-11-23 17:59 | XMS_ITS | Encounter Summary ---
Author Organization [employer] Address [address] [facility] [address] [place] [address] Care Team Providers Care Brake Machine Operator Name Role Phone Name, Ham HERRING Primary Care Provider [phone] Reason for Visit * Reason Comments Med Refill Encounter Details Date Type Department Care Team ([facility] st Contact Info) Description 04/18/2024 Refill [facility] [address] [place], [place] [phone] Name, MD Ham [address] [place] [address] Acute herpes zoster neuropathy Social History Tobacco [...] Description 12/12/2024 10:45 AM EDT Office Visit [facility] [address] [place] [phone] Name, MD Ham [address] [place] [phone] documented as of this encounter Visit Diagnoses Diagnosis Acute herpes zoster neuropathy documented in this encounter Additional Health Concerns Assessment Noted Time PHQ-9 Depression Total Score: 11 024 3:36 PM EDT documented as of this encounter Care Teams Brake Machine Operator Relationship Specialty Start Date End Date NameHam MD [address] [place] [phone] PCP - General Family Medicine 01/28/16 documented as of this encounter
--- OUTSIDE RECORDS SUMMARY | 2024-11-23 17:59 | XMS_ITS | Clinical Summary ---
Author Organization [employer] Address [address] [place] [address] [address] [place] [address] Care Team Providers Care Hobbing Press Operator Name Role Phone Name, Ham HERRING Primary Care Provider [phone] Allergies Active Allergy Reactions Criticality Noted Date Comments Empagliflozin 09/11/2020 Other reaction(s): Low blood pressure Medications * This document contains information received from the source organization and may not represent a complete record from that organization. glucose 4 g chewable tabletIndicati ons:Type 2 diabetes mellitus without complication, without long-term current use of insulin ([facility]),Hypo glycemia,Anore kathy Chew 4 tablets (16 g) [...] MOUTH AT BEDTIME 06/29/20 22 Active Creon 81187-91034 units capsule Take 1 capsule by mouth [...] 05/05/20 24 Active naproxen (Naprosyn) 500 MG tabletIndicati ons:Recurrent UTI TAKE 1 TABLET(500 MG) BY MOUTH TWICE DAILY FOR 20 DAYS 40 tablet 08/08/20 24 Active metFORMIN (Glucophage) 500 MG tablet TAKE 1 TABLET BY MOUTH WITH BREAKFAST AND 1 TABLET WITH EVENING MEAL 60 tablet 3 10/05/19 25 Active Magnesium Cl-Calcium Carbonate (Slow-Mag) 71.5-119 MG tablet delayed-releas e Take 1 tablet by mouth Once daily. 10 tablet 10/06/19 25 Active Dulaglutide (Trulicity) 1.5 MG/0.5ML solution auto-injectorI ndications:Typ e 2 diabetes mellitus without complication, without long-term current use of insulin ([facility]) Inject 1.5 mg under the skin 1 (one) time per week. 2 mL 3 11/08/19 25 026 Active Dulaglutide (Trulicity) 0.75 MG/0.5ML solution auto-injectorI ndications:Typ e 2 diabetes mellitus without complication, without long-term current use of insulin ([facility]) Inject 0.75 mg under the skin 1 (one) time per week. 2 mL 2 10/21/19 25 025 Discontinu ed(Dose adjustment ) clotrimazole-b etamethasone (Lotrisone) creamIndicatio ns:Intertrigo Apply topically 2 times daily for 28 days. 45 g 10/21/19 25 025 Active Problems Problem Noted Date Diagnosed Date Preop examination 10/20/2024 Assessment & Plan (10/20/2024 12:15 PM EDT): RCRI score is 0 meaning she has a 3.9% risk Patient is cleared for the procedure, her blood pressure today is normal 120/84mmhg, I counseled patient she needs to be n.p.o. after midnight for the procedure but I let her know she needs to take her blood pressure medication the morning of the procedure with a small sip of water Intertrigo 10/20/2024 Assessment & Plan (10/20/2024 12:14 PM EDT): I advised to maintain area dry and clean I will prescribe for patient clotrimazole with betamethasone to apply twice a day for no more than 2 weeks Hypokalemia 10/06/2024 Hypomagnesemia 10/06/2024 Type 2 diabetes mellitus 08/31/2022 Assessment & Plan (10/20/2024 12:14 PM EDT): Counseling about diabetic diet done today I will start patient on Trulicity 0.75 mg weekly I instructed to follow-up with PCP Blood in urine 03/14/2018 Renal colic 03/14/2018 Left upper quadrant pain 10/25/2017 History of cholecystectomy 10/25/2017 Knee pain 03/01/2017 Chronic low back pain 10/23/2016 Irritable bowel syndrome 10/23/2016 Steatosis of liver 10/23/2016 LFT elevation 09/30/2016 Pericardial effusion 03/30/2016 Kidney stone 12/14/2014 Esophagogastric ulcer 03/11/2012 Constipation 01/15/2012 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 Encounters Date Type Department Care Team Description 11/07/2024 Orders Only GENERIC EXTERNAL DATA DEPARTMENT Provider, Generic External Data 11/03/[address] [address] Ham Hay MD Medication Question 10/20/2024 10:15 AM EDT Office Visit [address] [address] Ofelia Blum MD Preop examination (Primary Dx); Type 2 diabetes mellitus without complication, without long-term current use of insulin ([facility]); Intertrigo 10/20/2024 Travel 10/06/2024 10:20 AM EST Office Visit [facility] [address] [place] [phone] Perfecto Pat MD H/O hypokalemia (Primary Dx); Anemia, unspecified type 10/06/2024 Telephone [facility] [address] [place] [phone] Perfecto Pat MD 10/06/2024 Orders Only [facility] [address] [place] [phone] Perfecto Pat MD Hypokalemia (Primary Dx); Hypomagnesemia 10/05/[address] [address] Ham Hay MD ER Follow-up 10/05/[address] [address] Ham Hay MD 10/04/[address] [address] Ham Hay MD Pre Op 10/03/2024 Orders Only GENERIC EXTERNAL DATA DEPARTMENT Provider, Generic External Data 09/22/[address] [address] Ham Hay MD No Show 09/22/[address] [address] Ham Hay MD Nurse Triage 09/19/2024 Orders Only [facility] External Provider, [facility] 08/25/2024 Refill [facility] [address] [place] [address] Name, MD Ham Recurrent UTI from Last 3 Months Immunizations Name Administration [...] Packs/Day Years Used Date Smoking Tobacco: Never Passive Smoke Exposure: Never Smokeless Tobacco: Never Tobacco Cessation:Counseling Given: [...] Recorded Patient Health Questionnaire-2 Score 5 05/17/2024 Internet Access Answer Date Recorded Internet Access Q1 Yes 10/20/2024 Internet Access Q2 Not on file 10/20/2024 Comments Unknown Sex and Gender Information Value Date Recorded Sex Assigned at Female 06/08/2022 10:17 AM EDT Legal Sex Female 10:17 AM EDT Gender Identity Female 06/08/2022 10:17 AM EDT Sexual Orientation Straight 06/08/2022 10 :17 AM EDT Last Filed Vital Signs Vital Sign Reading Time Taken Comments Blood Pressure 120/84 10/20/2024 10:16 AM EDT Pulse 90 10/20/2024 10:16 AM EDT Temperature 36 ??C (96.8 ??F) 10/20/2024 10:16 AM EDT Respiratory Rate 17 10/20/2024 10:16 AM EDT Oxygen Saturation 99% 10/06/2024 10:06 AM EST Inhaled Oxygen Concentration - - Weight 65.8 kg (145 lb) 10/20/2024 10:16 AM EDT Height 157.5 cm (5' 2 ) 10/20/2024 10:16 AM EDT Body Mass Index 26.52 10/20/2024 10:16 AM EDT Plan of Treatment Upcoming Encounters Date Type Department Care Team (Late st Contact Info) Description 12/12/2024 10:45 AM EDT Office Visit [facility] [address] [place] [address] Name, MD Ham [address] [place] [address] Health Maintenance Due Date Last Done Comments [...] 06/30/2024 06/30/2023, 06/30/2023, 06/30/2023, Additional history exists Depression Monitoring 11/15/2024 05/17/2024, 024 Diabetes: Urine Protein Screening 01/17/2025 01/18/2024, 01/19/2023, 11/11/2022 Lipid Panel 01/17/2025 01/18/2024, 01/07, 11/11/2022 Diabetes: Hemoglobin A1C 01/20/2025 025, 05/17/2024, 02/11/2024, Additional history exists Alcohol/Substance Use Screening 05/17/2025 05/17/2024 Depression Screening 05/17/2025 05/17/2024, 08/31/19 23 Mammogram 05/29/2025 05/29/2024, 05/10, 05/28/2023, Additional history exists SDOH Screening 10/20/2025 10/20/2024 Tobacco Screening 10/20/2025 10/20/2024 Colonoscopy 05/09/2026 05/09/2019 Colorectal Cancer Screening 05/09/2026 [...] Procedure Name Priority Date/Time Associated Diagnosis Comments GLUCOSE, WHOLE BLOOD Routine 11/07/2024 7:41 AM EDT CULTURE, URINE, ROUTINE Routine 11/07/2024 12:00 AM EDT POCT GLYCATED HEMOGLOBIN, TOTAL Routine 10/20/2024 10:20 AM EDT Type 2 diabetes mellitus without complication, without long-term current use of insulin ([facility]) POCT GLUCOSE Routine 10/20/2024 10:19 AM EDT Type 2 diabetes mellitus without complication, without long-term current use of insulin ([facility]) MAGNESIUM Routine 10/06/2024 11:30 AM EST H/O hypokalemia VITAMIN B12 Routine 10/06/2024 11:30 AM EST Anemia, unspecified type IRON AND TOTAL IRON BINDING CAPACITY Routine 10/06/2024 11:30 AM EST Anemia, unspecified type FOLATE, SERUM Routine 10/06/2024 11:30 AM EST Anemia, unspecified [...] GFR Routine 09/19/2024 9 :49 AM EST BI MAMMOGRAM SCREENING TOMOSYNTHESIS BILATERAL Routine 05/29/2024 11:38 AM EDT ALBUMIN, RANDOM URINE W/CREATININE Routine 01/18/2024 8:56 AM EDT Type 2 diabetes mellitus without complication, without long-term current use of insulin ([facility]) LIPID PANEL, STANDARD Routine 01/18/2024 8:56 AM EDT Type 2 diabetes mellitus without complication, without long-term current use of insulin ([facility]) HM COLONOSCOPY Routine 05/09/2019 from Last 3 Months or Most Recently Relevant to Health Maintenance Results * (ABNORMAL) Glucose, Whole Blood (11/07/2024 7:41 AM EDT) Only the most recent of3 resultswithin the time period is included. Glucose, Whole Blood 168(H) 60 - 115 mg/dL [facility] Comment:METER #: [id number] 11/07/2024 7:41 AM EDT 11/07/2024 7:56 AM EDT us Generic External Data Provider LAB BLOOD ORDERAB LES Final Result [facility] [address] [place] [phone] * Culture, Urine, Routine (11/07/2024 12:00 AM EDT) Urine Urine specimen from urinary conduit / Unknown 11/07/2024 11/07/2024 Comment:Urine Cath Narrative [facility] - 11/09/2024 10:55 AM EDT Urine Culture No growth. Specimen Source: Urine Catheterized us Generic External Data Provider LAB MICROBIOLOGY - GENERAL ORDERABLES Final Result [facility] [address] [place] [address] [phone] * (ABNORMAL) POCT HGB A1C (10/20/2024 10:20 AM EDT) Hemoglobin A1C 7.9(A) 4.0 - 6.0 % QC Media Lot # [id number] Lot# Expiration Date Blood 10/20/2024 10:2 0 AM EDT Ofelia Patel MD POINT OF CARE TEST EN TER/EDIT ORDERABLES Final Result * (ABNORMAL) POCT Glucose (10/20/2024 10:19 AM EDT) Glucose Blood, POC 229(A) 60 - 200 mg/dL Comment:Random QC Media Lot # [id number] Lot# Expiration Date Blood Capillary blood specimen / Unknown 10/20/2024 10:19 AM EDT Ofelia Patel MD POINT OF CARE TEST EN TER/EDIT ORDERABLES Final Result * (ABNORMAL) CBC auto differential (10/06/2024 11:30 AM EST) Only the most recent of2 resultswithin the time period is included. White Blood Count 6.0 4.8 - 10.8 X10*3/uL [facility] Red Blood Count 4.33 4.20 - 5.50 X10*6/uL [facility] Hemoglobin 12.0 12.0 - 16.0 g/dl [facility] Hematocrit 36.3(L) 37.0 - 47.0 % [facility] Mean Corpuscular Volume 83.8 80.0 - 98.0 fL [facility] Mean Corpuscular Hemoglobin 27.7 27.0 - 33.0 pg [facility] Mean Corpuscular HGB Conc 33.1 31.0 - 35.0 g/dl [facility] Red Cell Distribution Width 12.4 11.0 - 16.0 % [facility] Platelet Count 213 160 - 400 X10*3/uL [facility] Mean Platelet Volume 11.6 9.4 - 12.3 fL [facility] Neutrophils Percent Auto 48.8 45 - 73 % [facility] Imm Gran Pct Auto 0.3 0.0 - 0.4 % [facility] Lymphocytes Percent Auto 39.5 20 - 40 % [facility] Monocytes Percent Auto 7.0 2 - 11 % [facility] Eosinophils Percent Auto 3.4 0 - 4 % [facility] Basophils Percent Auto 1.0 0 - 2 % [facility] NRBC Pct Auto 0.0 0.0 - 0.2 /100WBC [facility] Neutrophils Absolute Auto 2.9 2.0 - 8.3 x10*3/uL [facility] Imm Gran Abs Auto 0.02 0.00 - 0.03 X10*3/uL [facility] Lymphocytes Absolute Auto 2.4 1.2 - 4.9 X10*3/uL [facility] Monocytes Absolute Auto 0.4 0.1 - 1.2 X10*3/uL [facility] Eosinophils Absolute Auto 0.2 0.0 - 0.4 X10*3/uL [facility] Basophils Absolute Auto 0.1 0.0 - 0.2 X10*3/uL [facility] NRBC Abs Auto 0.000 0.0 - 0.012 X10*3/uL [facility] Blood Venous blood specimen / Unknown 10/06/2024 11:30 AM EST 10/06/2024 11:30 AM EST us Perfecto Pat MD LAB BLOOD ORDERABLES Final Resul t Performing Organization Address [facility] de Phone Number [facility] [address] [place] [phone] * Iron And Total Iron Binding Capacity (10/06/2024 11:30 AM EST) Iron 59 30 - 160 mcg/dL [facility] Total Iron Binding Capacity 288 228 - 428 mcg/dL [facility] Percent Iron Saturation 20 15 - 50 % [facility] Unsaturated Iron Binding 229 ug/dL [facility] Blood Venous blood specimen / Unknown 10/06/2024 11:30 AM EST 10/06/2024 11:30 AM EST us Perfecto Pat MD LAB BLOOD ORDERABLES Final Resul t Performing Organization Address [facility] de Phone Number [facility] [address] [place] [phone] * (ABNORMAL) Magnesium (10/06/2024 11:30 AM EST) Magnesium 1.5(L) 1.6 - 2.6 mg/dL [facility] Blood Venous blood specimen / Unknown 10/06/2024 11:30 AM EST 10/06/2024 11:30 AM EST us Perfecto Pat MD LAB BLOOD ORDERABLES Final Resul t Performing Organization Address [facility] de Phone Number [facility] [address] [place] [phone] * Folate, Serum (10/06/2024 11:30 AM EST) Folate 11.9 > or = 4.0 ng/mL [facility] Comment:Reference Values:> o r = 4.0 ng/mL< 4.0 ng/mL suggests folate deficiency Methotrexate, aminopterin and folinic acid(leucovorin) are chemotherapeutic agents whose molecularstructures are similar to folate; therefore, the Architectfolate assay cannot be used for patients using these drugs. Blood Venous blood specimen / Unknown 10/06/2024 11:30 AM EST 10/06/2024 11:30 AM EST us Perfecto Pat MD LAB BLOOD ORDERABLES Final Resul t Performing Organization Address City/[facility] Co de Phone Number [facility] [address] [place] [phone] * Ferritin (10/06/2024 11:30 AM EST) Ferritin 29 10 - 250 ng/mL [facility] Blood Venous blood specimen / Unknown 10/06/2024 11:30 AM EST 10/06/2024 11:30 AM EST us Perfecto Pat MD LAB BLOOD ORDERABLES Final Resul t Performing Organization Address [facility] de Phone Number [facility] [address] [place] [phone] * Vitamin B12 (10/06/2024 11:30 AM EST) Vitamin B12 538 200 - 900 pg/mL [facility] Comment:NORMAL 200-900 PG/ML INDETERMINATE 160-199 PG/ML DEFICIENT < 160 PG/ML Blood Venous blood specimen / Unknown 10/06/2024 11:30 AM EST 10/06/2024 11:30 AM EST us Perfecto Pat MD LAB BLOOD ORDERABLES Final Resul t Performing Organization Address [facility] Co de Phone Number [facility] [address] [place] [phone] * (ABNORMAL) Basic Metabolic Panel (10/06/2024 11:30 AM EST) Only the most recent of2 resultswithin the time period is included. Sodium 138 135 - 145 mmol/L [facility] Potassium 4.4 3.3 - 5.1 mmol/L [facility] Chloride 108 96 - 108 mmol/L [facility] Carbon Dioxide 20(L) 22 - 29 mmol/L [facility] Anion Gap 14 12 - 20 [facility] Urea Nitrogen (BUN) 18(H) 9 - 16 mg/dL [facility] Creatinine, Serum 0.93 0.5 - 1.4 mg/dL [facility] Estimated Glomerular Filt Rate >60 [facility] Comment:Chronic Kidney Disea se: Estimated GFR < 60 mL/min/1.13i0Qaxaml Kidney Disease: Estimated GFR < 15 mL/min/1.73m2 Glucose 302(H) 60 - 115 mg/dL [facility] Calcium 9.4 8.4 - 10.2 mg/dL [facility] Blood Venous blood specimen / Unknown 10/06/2024 11:30 AM EST 10/06/2024 11:30 AM EST us Perfecto Pat MD LAB BLOOD ORDERABLES Final Resul t [facility] [address] [place] [phone] * (ABNORMAL) Comprehensive Metabolic Panel (10/03/2024 9:39 AM EST) Sodium 140 135 - 145 mmol/L [facility] Potassium 2.6(LL) 3.3 - 5.1 mmol/L [facility] Comment:Critical value for P OTS: Results called to and read mariah SUMNER Person calling: FRANCIS Date: 10/03/24Time:1006 Chloride 119(H) 96 - 108 mmol/L [facility] Carbon Dioxide 15(L) 22 - 29 mmol/L [facility] Anion Gap 9(L) 12 - 20 [facility] Urea Nitrogen (BUN) 14 9 - 16 mg/dL [facility] Creatinine, Serum 0.67 0.5 - 1.4 mg/dL [facility] Creatinine Clr Calc Pharmacy 69.5 [facility] Comment:Provided height and weight: 154.94 cm,63.5 kg.eGFR (calculated from the MDRD study equation) and eCrCl(calculated from the Cockcroft-Gault equation) are based ondifferent parameters and may not yield comparable results.If eCrCl result is absurd, please check patient'sheight/weight. Estimated Glomerular Filt Rate >60 [facility] Comment:Chronic Kidney Disea se: Estimated GFR < 60 mL/min/1.34d0Ibmaae Kidney Disease: Estimated GFR < 15 mL/min/1.73m2 Glucose 261(H) 60 - 115 mg/dL [facility] Calcium 6.5(L) 8.4 - 10.2 mg/dL [facility] Bilirubin, Total 0.2 0.0 - 1.0 mg/dL [facility] Aspartate Amino Transferase 12 5 - 31 U/L [facility] Alanine Aminotransferase 12 0 - 31 U/L [facility] Total Protein 4.4(L) 6.5 - 8.0 g/dL [facility] Albumin Level 2.7(L) 3.5 - 5.0 g/dL [facility] Alkaline Phosphatase 77 39 - 117 U/L [facility] 10/03/2024 9:39 AM EST 10/03/2024 9:46 AM EST us Generic External Data Provider LAB BLOOD ORDERAB LES Final Result [facility] [address] [place] [phone] * CT Urogram w/o Contrast (09/19/2024 9:51 AM EST) Anatomical Region Laterality Modality Ureter, Upper urinary tract Comp uted Tomography 09/19/2024 9:51 AM EST Narrative 09/19/2024 10:45 AM EST ? [facility] ?[address] ?[place] [address] ? CT Scan Report ? Signed ? Patient: Colon Chris,Makenna ?MR#: [id number] ?? [id number] ? : 1955 ?Acct:[id number] ? Age/Sex: 69 / F ?ADM Date: 09/19/24 ? Loc: HO.CT ? Attending Dr: Robert Hoffman MD ? Ordering Physician: Robert Hoffman MD ?? Date of Service: 09/19/24 ?? Procedure(s): CT urogram ?? Accession Number(s): [id number] ? cc: Robert Hoffman MD; Name,Ham HERRING ? Report Number: ?? [id number]: Total DLP = ??503.00 mGy-cm ?? EXAMINATION: [...] DD/ 0951 ? TD/TT: 09/19/24 1017 ? Collar Stay Fuser Tender: ? Procedure Note Donotuseinterpreter, Image - 09/19/[address] [address] [address] Scan Report Signed Patient: Katelin Ortiz#: [id number] : 1955cct:[id number] Age/Sex: 69 / FADM Date: 09/19/24 Loc: HO.CT Attending Dr: Robert Hoffman MD Ordering Physician: Robert Hfofman MD Date of Service: 09/19/24 Procedure(s): CT urogram Accession Number(s): [id number] cc: Robert Hoffman MD; Name,Ham HERRING Report Number: [id number]: Total DLP = 503.00 mGy-cm EXAMINATION: CT [...] MD Signed By: <Electronically signed by Larry oL MDin OV> 09/19/24 1041 DD/ 0951 TD/TT: 09/19/24 1017 Collar Stay Fuser Tender: [facility] External Provider IMG CT PROCEDURES Final Result * POCT Creatinine GFR (09/19/2024 9:49 AM EST) POCT Creatinine 0.7 0.5 - 1.4 mg/dL [facility] GFR POC >60 [facility] Comment:Chronic Kidney Disea se: Estimated GFR < 60 mL/min/1.26m7Krvfih Kidney Disease: Estimated GFR < 15 mL/min/1.73m2 09/19/2024 9:49 AM EST 09/19/2024 10:25 AM EST Narrative [facility] - 09/19/2024 10:26 AM EST [id number] us Generic External Data Provider LAB POINT OF CARE TEST DOCKED DEVICE ORDERABLES Final Result Performing Organization Address City/State/[facility] Co de Phone Number [facility] [address] [place] [phone] * BI Mammogram Screening Tomosynthesis Bilateral (05/29/2024 11:38 AM EDT) Anatomical Region Laterality Modality Breast Bilateral Mammography 05/29/2024 11:3 8 AM EDT Narrative 06/09/2024 10:51 AM EDT ? [facility] ? [address] ?[place] [address] ? Mammography Report ? Signed ? Patient: Colon Chris,Makenna ?MR#: [id number] ?? [id number] ? : 1955 ?Acct:[id number] ? Age/Sex: 69 / F ?ADM Date: 10/21/24 ? Loc: HO.MAMMO ? Attending : Ham Name MD ? Ordering Physician: Name,Ham MD ?Results: 1Negative ? Date of Service: 05/29/24 ?Follow Up: 1 Year From Orig ?? inal Mammogram ? Procedure(s): MM tomosynthesis screening BI ?? Accession Number(s): [id number] ? cc: Name,Ham HERRING ? EXAMINATION: ?? MM SCREENING DIGITAL BREAST [...] DD/ 1138 ? TD/TT: 05/29/24 1153 ? Collar Stay Fuser Tender: ? Procedure Note Thi, Image - [facility] [address] [place], [place] [address] Mammography Report Signed Patient: Makenna OrtizMR#: [id number] : 1955cct:[id number] Age/Sex: 69 / FADM Date: 05/29/24 Loc: .MAMMO Attending Dr: Ham Hay MD Ordering Physician: Ham Hay MDResults: 1Negative Date of Service: 05/29/24Follow Up: 1 Year From Orig inal Mammogram Procedure(s): MM tomosynthesis screening BI Accession Number(s): [id number] cc: Ham Hay MD EXAMINATION: MM SCREENING [...] 06/09/24 1048 DD/ 1138 TD/TT: 05/29/24 1153 Collar Stay Fuser Tender: Ham Hay MD [facility] BI PROCEDURES Edited Result - Final * Albumin, Random Urine W/Creatinine (01/18/2024 8:56 AM EDT) Creatinine, Urine 239.15 mg/dL [facility] Microalbumin Urine 18.0 mg/L [facility] Microalbum Creatinine Ratio Ur 7.5 <30 ug/mg cr [facility] Comment:Albumin/Creatinine R atio Reference Ranges: Normal: < 30 ug/mg creatinine Microalbuminuria: 30 - 300 ug/mg creatinineClinical Albuminuria: > 300 ug/mg creatinine Urine (Urine, Random) 01/18/2024 8:56 AM EDT 01/18/2024 11:08 AM EDT us Ham Hay MD LAB URINE ORDERABLES Final Resul t Performing Organization Address City/[facility]/ZIP Co de Phone Number [facility] [address] [place] [phone] * (ABNORMAL) Lipid Panel, Standard (01/18/2024 8:56 AM EDT) Triglycerides 225(H) <150 mg/dL [facility] Comment:Desirable Triglyceri de: less than 150 mg/dLBorderline High Triglyceride 150-199 mg/dLHigh Triglyceride: 200-499 mg/dLVery High Triglyceride: greater than or equal to 5OO mg/dL Cholesterol 184 <200 mg/dL [facility] Comment:Desirable Cholestero l: less than 200 mg/dLBorderline High Cholesterol: 200-239 mg/dLHigh Cholesterol: greater than 239 mg/dL LDL Cholesterol Calculated 80 <100 mg/dL [facility] Comment:Desirable LDL: less than 100 mg/dLNear Optimal/Above Optimal LDL: 110- 129 mg/dLBorderline High LDL: 130-159 mg/dLHigh LDL: 160-189 mg/dLVery High LDL: greater than or equal to 190 mg/dL HDL Cholesterol 59 >40 mg/dL [facility] Comment:Desirable HDL: great er than 40 mg/dL Note: This HDL assay may give artificially low results in patients with liver disease. Blood Venous blood specimen / Unknown 01/18/2024 8:56 AM EDT 01/18/2024 11:15 AM EDT us Ham Hay MD LAB BLOOD ORDERABLES Final Resul t [facility] [address] [place] [phone] * (ABNORMAL) Colonoscopy (05/09/2019) Colonoscopy Abnormal(A ) Normal [facility] Hospital External Provider HEALTH MAINTENANCE Final Result from Last 3 Months or Most Recently Relevant to Health Maintenance Insurance [facility] Care Teams Hobbing Press Operator Relationship Specialty Start Date End Date Name, MD Ham [address] [place] [id number] PCP - General Family Medicine 01/28/16
--- OUTSIDE RECORDS SUMMARY | 2024-11-23 17:59 | XMS_ITS | Encounter Summary ---
Author Organization [employer] Address [address] [place] [address] 7[address] [place] [address] Care Team Providers Care Elementary School Teacher Name Role Phone Name, Ham HERRING Primary Care Provider [phone] Reason for Visit * Reason Comments Med Refill Encounter Details Date Type Department Care Team ([facility] st Contact Info) Description 08/25/2024 Refill [facility] [address] [place] [address] Name, MD Ham [address] [place] [address] Recurrent UTI Social History Tobacco Use Types [...] 12/12/2024 10:45 AM EDT Office Visit [facility] [address] [place] [phone] Name, MD Ham [address] [place] [address] documented as of this encounter Visit Diagnoses Diagnosis Recurrent UTI Urinary tract infection, site not specified documented in this encounter Additional Health Concerns Assessment Noted Time PHQ-9 Depression Total Score: 24 024 11:40 AM EDT documented as of this encounter Care Teams Elementary School Teacher Relationship Specialty Start Date End Date NameHam MD [address] [place] [phone] PCP - General Family Medicine 01/28/16 documented as of this encounter
--- OUTSIDE RECORDS SUMMARY | 2024-11-23 17:59 | XMS_ITS | Encounter Summary ---
Author Organization [employer] Address [address] [place] [address] 7 [place] [address] Care Team Providers Care Design Verification Engineer Name Role Phone Name, Ham HERRING Primary Care Provider [phone] Encounter Details Date Type Department Care Team (Late Contact Info) Description 10/27/2022 Orders Only [facility] [address] [place], [place] [phone] Amber Everett LPN Social History Tobacco Use [...] Office Visit [facility] MED[facility] [address] [place] [address] Name, MD Ham [address] [place] [address] documented as of this encounter Visit Diagnoses Not on filedocumented in this encounter Care Teams Design Verification Engineer Relationship Specialty Start Date End Date NameHam MD [address] [place] [address] PCP - General Family Medicine 01/28/16 documented as of this encounter
--- OUTSIDE RECORDS SUMMARY | 2024-11-23 17:59 | XMS_ITS | Encounter Summary ---
Author Organization [employer] Address [address] [place] [address] 7 [place] [address] Care Team Providers Care Coiled Coil Inspector Name Role Phone Name, Ham HERRING Primary Care Provider [phone] Reason for Visit * Reason Onset Date Comments Pre Op 10/04/2024 Encounter Details Date Type Department Care Team ([facility] st Contact Info) Description 10/04/2024 Telephone [facility] [address] [place] [address] Name, MD Ham [address] [place] [address] Pre Op Social History Tobacco Use Types [...] encounter Miscellaneous Notes * Telephone Encounter - Orestes Allan - 10/06/2024 2:25 PM EST Pt agreed to 10/[address] Andrews for pre-op * Telephone Encounter - Tristan Del Rio - 10/04/2024 2:52 PM EST Date of Surgery: 11/07/24 Surgical procedure being done: Cistoscopy with Acme distention of the Blader Type of anesthesia: general anesthesia Lab needed: Yes EKG: Yes Surgeon's name: Dr. Hoffman Facility name: [facility] Surgeon's office number: [phone] Surgeon's office fax number: [phone] Contact name (person you spoke with): Xiomara Last office note from surgeon requested: No Send Message to Yajaira Ramírez and Orestes Allan documented in this encounter Plan of Treatment Upcoming Encounters Date Type Department Care Team (Late st Contact Info) Description 12/12/2024 10:45 AM EDT Office Visit [facility]INE [address] [place] [address] Name, MD Ham [address] [place] [address] documented as of this encounter Visit Diagnoses Not on filedocumented in this encounter Additional Health Concerns Assessment Noted Time PHQ-9 Depression Total Score: 24 024 11:40 AM EDT documented as of this encounter Care Teams Coiled Coil Inspector Relationship Specialty Start Date End Date Name, MD Ham [address] [place] [address] PCP - General Family Medicine 01/28/16 documented as of this encounter
--- OUTSIDE RECORDS SUMMARY | 2024-11-23 17:59 | XMS_ITS | Encounter Summary ---
Author Organization [employer] Address [address] [place] [address] 7 [place] [address] Care Team Providers Care Floral Arranger Name Role Phone Name, Ham HERRING Primary Care Provider [phone] Reason for Visit * Reason Comments Med Refill Encounter Details Date Type Department Care Team ([facility] st Contact Info) Description 05/30/2024 Refill [facility] [address] [place] [address] Name, MD Ham [address] [place] [address] Social History Tobacco Use Types Packs/Day Years [...] AM EDT Office Visit [facility] [address] [place] [phone] Name, MD Ham [address] [place] [address] documented as of this encounter Visit Diagnoses Not on filedocumented in this encounter Additional Health Concerns Assessment Noted Time PHQ-9 Depression Total Score: 24 024 11:40 AM EDT documented as of this encounter Care Teams Floral Arranger Relationship Specialty Start Date End Date NameHam MD [address] [place] [id number] PCP - General Family Medicine 01/28/16 documented as of this encounter
--- OUTSIDE RECORDS SUMMARY | 2024-11-23 17:59 | XMS_ITS | Encounter Summary ---
Author Organization [employer] Address [address] [place] [address] 7 [place] [address] Care Team Providers Care Hand Slitter Name Role Phone Name, Ham HERRING Primary Care Provider [phone] Encounter Details Date Type Department Care Team (Late st Contact Info) Description 07/14/2022 Abstract [facility] MED[facility]INE [address] [place] [phone] Provider, MD Meghan Social History Tobacco Use [...] Description 12/12/2024 10:45 AM EDT Office Visit [facility] [address] [place] [address] NameHam MD [address] [place] [address] documented as of this encounter Visit Diagnoses Not on filedocumented in this encounter Care Teams Hand Slitter Relationship Specialty Start Date End Date Ham Hay MD [address] [place] [phone] PCP - General Family Medicine 01/28/16 documented as of this encounter
--- OUTSIDE RECORDS SUMMARY | 2024-11-23 17:59 | XMS_ITS | Encounter Summary ---
Author Organization [employer] Address [address] [place] [address] 7 [place] [address] Care Team Providers Care Electrical Engineering Director Name Role Phone Name, Ham HERRING Primary Care Provider [phone] Reason for Visit * Reason Onset Date Comments FYI 04/21/2024 Encounter Details Date Type Department Care Team ([facility] st Contact Info) Description 04/21/2024 Telephone [facility] [address] [place] [address] Name, MD Ham [address] [place] [address] Social History Tobacco Use Types Packs/Day Years [...] - 04/21/2024 3:49 PM EDT Tc from [facility] calling to inform pcp pt has been admitted into hospital. If any questions you can contact [facility] at [phone]. documented in this encounter Plan of Treatment Upcoming Encounters Date Type Department Care Team (Late st Contact Info) Description 12/12/2024 10:45 AM EDT Office Visit [facility] [address] [place] [address] Name, MD Ham [address] [place] [address] documented as of this encounter Visit Diagnoses Not on filedocumented in this encounter Additional Health Concerns Assessment Noted Time PHQ-9 Depression Total Score: 11 024 3:36 PM EDT documented as of this encounter Care Teams Electrical Engineering Director Relationship Specialty Start Date End Date Name, MD Ham [address] [place] [address] PCP - General Family Medicine 01/28/16 documented as of this encounter
--- OUTSIDE RECORDS SUMMARY | 2024-11-23 17:59 | XMS_ITS | Encounter Summary ---
Author Organization [employer] Address [address] [place] [address] 7 [place] [address] Care Team Providers Care Last Chalker Name Role Phone NameHam MD Primary Care Provider [phone] Encounter Details Date Type Department Care Team (Late Contact Info) Description 01/19/2023 Abstract [facility] MEDICINE [address] [place] [phone] Ham Hay MD [address] [place] [address] [phone] Social History Tobacco Use Types Packs/Day Years [...] Description 12/12/2024 10:45 AM EDT Office Visit [facility] MED[facility]INE [address] [place] [address] [phone] NameHam MD [address] [place] [address] [phone] documented as of this encounter Visit Diagnoses Not on filedocumented in this encounter Care Teams Last Chalker Relationship Specialty Start Date End Date NameHam MD [facility] [place] [address] PCP - General Family Medicine 01/28/16 documented as of this encounter
--- OUTSIDE RECORDS SUMMARY | 2024-11-23 17:59 | XMS_ITS | Encounter Summary ---
Author Organization [employer] Address [address] [place] [address] 7 [place] [address] Care Team Providers Care Audio Tape Librarian Name Role Phone Name, Ham HERRING Primary Care Provider [phone] Reason for Visit * Reason Onset Date Comments Nurse Triage 07/03/2024 Results 07/03/2024 Encounter Details Date Type Department Care Team ([facility] Contact Info) Description 07/03/2024 Telephone [facility] [address] [place], [place] [phone] Name, MD Ham [address] [place] [address] Nurse Triage; Results Social History Tobacco Use [...] 07/03/2024 11:30 AM EST Triage call with [facility] [place] [id number], Pt spoke macanese , compliance program manager wasn't needed. [employer] brought a urine sample to the lab at [facility] 06/26/24 and hasn't been called about the results.Results show possible UTI, Pt is advised to come to [facility] to be seen today. Pt [...] EST Tc from Maryann nurse practitioner with [facility] calling to report pt is experiencing pain when using the bathroom and pt is requesting results from urine culture done on 06/26/24. Maryann stated pt would like to speak to nurse regarding symptoms. Contact pt at [phone] (mongolian) or Maryann at [phone] documented in this encounter Plan of Treatment Upcoming Encounters Date Type Department Care Team (Late st Contact Info) Description 12/12/2024 10:45 AM EDT Office Visit [facility] [address] [place] [address] Name, MD Ham [address] [place] [address] documented as of this encounter Visit Diagnoses Not on filedocumented in this encounter Additional Health Concerns Assessment Noted Time PHQ-9 Depression Total Score: 24 024 11:40 AM EDT documented as of this encounter Care Teams Audio Tape Librarian Relationship Specialty Start Date End Date Name, MD Ham [address] [place] [address] PCP - General Family Medicine 01/28/16 documented as of this encounter
== END 2024-11-23 15:56 | disposition home or self-care (01) ==
LOC: HO.HUSH 15:17
PROVIDERS: PCP Internal Medicine Geriatric Medicine; Visit Provider Urology
DX: Z13.9 Encounter for screening, unspecified (principal)

== ENCOUNTER → 2024-11-23 15:17 | Outpatient (BNVA) | payer OTHER, SELFPAY | PROVIDERS: PCP Internal Medicine Geriatric Medicine; Visit Provider Urology | DX: N39.0 Urinary tract infection, site not specified (principal); R31.9 Hematuria, unspecified; N20.0 Calculus of kidney | CPT/HCPCS: 81003; 99212 ==

== ENCOUNTER 2024-12-29 14:03 | Outpatient (AMB) | payer OTHER, SELFPAY ==
[2024-12-29 14:04] VITALS: BP 113/70; PULSE 104; O2SAT 99; BMI 26.0
--- NOTE | 2024-12-29 14:04 | MHC.OFFVIS ---
Vital Signs 12/29/24 14:04 Height 5 ft 2 in Weight 141 lb 15.643 oz BMI 26.0 BP 113/70 Blood Pressure Location Rt brachial Position Sitting Pulse 104 H Pulse Source Pulse Oximeter Pulse Oximetry (%) 99 Oxygen Delivery Method Room Air Intake Visit Reasons: cic Intake Note: Patient follow up for CIC Abdominal cramping. Patient was referred to Urology dept, notes on file. Patient cc: Patient reports ongoing abdominal cramping, described as a burning sensation. Patient also complains of nausea. Allergies No Known Allergies [No Known Allergies*] Allergy (Verified 12/29/24 14:08) HPI HPI cic: Details: Assessment & Plan (1) Chronic idiopathic constipation: Code(s): K59.04 - Chronic idiopathic constipation Category: Medical (2) Ileus: Code(s): K56.7 - Ileus, unspecified Category: Medical (3) Small bowel motility disorder: Code(s): K59.9 - Functional intestinal disorder, unspecified Category: Medical (4) GERD (gastroesophageal reflux disease): Comment: This resolved after we got her bowels moving and she does not need any acid suppression therapy aeb Code(s): K21.9 - Gastro-esophageal reflux disease without esophagitis Category: Medical (5) Abdominal cramping: Code(s): R10.9 - Unspecified abdominal pain Category: Medical (6) Diverticulitis: Code(s): K57.92 - Diverticulitis of intestine, part unspecified, without perforation or abscess without bleeding Category: Medical (7) Renal casts: Code(s): R82.998 - Other abnormal findings in urine Category: Medical (8) Recurrent UTI (urinary tract infection): Code(s): N39.0 - Urinary tract infection, site not specified Category: Medical Plan (She continues on her bisacodyl, dicyclomine, famotidine, Proctosol cream for hemorrhoids, Linzess 290 micro g, Creon 24,000, omeprazole 40 mg a day, MiraLax, Zofran as needed, senna, and simethicone. Medications that could be confounding our efforts towards bowel motility include Effexor, Seroquel, clonidine, amitriptyline, and she is on methylphenidate and I am uncertain how this impacts her bowels. You would think it would stimulate them but apparently that has not the case. am referring her to [facility] for 2nd opinion since she has seen a physician here without resolution of her condition and I have worked with her for quite a long time and I just can not seem to get a handle on how to manage her overall burden.) She does not see [facility] until 10/2024!! She continues not to move her bowels well despite failing Linzess, Amitiza, Trulance, Motegrity, Dulcolax added to all of these agents, Reglan added to all of these agents, and now I think we are going to try Ibsrela. She does not see [facility] until October. She is having a new problem of recurrent urine tract infections. One of them was so bad she started seeing things and had to be hospitalized with mental status changes and then sent to a shelter facility. I note that on her urine she is still showing leuk Estrace although the culture is not growing anything out showing only urogenital contamination. However, she has consistently had casts and crystals in her urine and it could be she trying to pass stones or urinary sludge. With this in mind I am going to give her prescription for Flomax. This will also help if the urine tract infections or happening because she is not fully emptying her bladder and she is creating reservoir for bacteria debride. I am also referring her to urology for definitive treatment. Return office visit in 6 weeks Orders: Referrals Urology Referral N39.0 - Urinary tract infection, site not specified, R82.998 - Other abnormal findings in urine Medications: New tenapanor (Ibsrela) must administer immediately before first meal of day/breakfast and dinner 50 mg PO BID 60 tabs 6RF K59.04 - Chronic idiopathic constipation tamsulosin 0.4 mg PO DAILY 30 caps 3RF R82.998 - Other abnormal findings in urine TODAY'S VISIT (She continues on her bisacodyl, dicyclomine, famotidine, Proctosol cream for hemorrhoids, Linzess 290 micro g, Creon 24,000, omeprazole 40 mg a day, MiraLax, Zofran as needed, senna, and simethicone. Medications that could be confounding our efforts towards bowel motility include Effexor, Seroquel, clonidine, amitriptyline, and she is on methylphenidate and I am uncertain how this impacts her bowels. You would think it would stimulate them but apparently that has not the case. am referring her to [facility] for 2nd opinion since she has seen a physician here without resolution of her condition and I have worked with her for quite a long time and I just can not seem to get a handle on how to manage her overall burden. She does not see [facility] until 10/2024!!) She missed her appt at [facility] r/t transportation. She is uncertain if she can reschedule this w/o the same problem. Same sx, except nausea has greatly worsened, BUT reglan seems to have fallen off of her medication list. Will restart. She was using zofran, but this will not hlpe to address the underlying motility problem and pain. I would not use misoprostol becasue of her nausea. May need to see if there are any other off label unusual tx. Uncertain what to do next, as we have tried all of the medication available, and she has transportation problems. ROV 3 mos. PFSH Medical History Bipolar disorder PTSD (post-traumatic stress disorder) Depression Anxiety Fibromyalgia Schizophrenia Anemia Ileus Tubular adenoma of colon History of pancreatitis Irritable bowel syndrome with constipation Diverticulitis GERD (gastroesophageal reflux disease) Chronic idiopathic constipation Surgical History History of esophagogastroduodenoscopy (EGD) Hx of colonoscopy Family History Father No problems noted. Mother Diabetes Melanoma Family history of hypertension Family history of diabetes mellitus Social History Household Members: Significant Other Housing: House Are you a primary senior care specialist to a significant other at home: No Do you presently have visiting nurse or other home services: No Alcohol intake: never Patient Tobacco Use Status: Never used Tobacco Second Hand Smoke Exposure: No service: No Current occupational status: disabled Sexual orientation: Straight/Heterosexual Review of Systems Const Denies fatigue, Denies fever(s), Denies night sweats, Denies poor appetite and Reports weight loss Eyes Details: glasses Reports requires corrective lenses ENT Reports Normal hearing present, Denies dental pain, Denies dysphagia, Denies hearing loss, Denies mouth pain, Denies odynophagia, Denies throat swelling, Denies tongue swelling and Reports other (Dentition adequate) Card Reports no additional complaints Resp Reports no additional complaints GI Details: Denies abdominal pain, Denies melena, Denies bloating, Denies hematochezia, Reports constipation, Denies GI cramping, Denies dysphagia, Denies excessive flatus, Denies early satiety, Reports heartburn, Denies diarrhea, Reports nausea, Denies odynophagia, Denies vomiting and Denies hematemesis Skin/Breast Denies pruritus, Denies lesions, Denies rash and Denies jaundice Neuro Reports Normal hearing present and Denies Abnormal speech present Endo Denies fatigue Aller/Immun Denies throat swelling and Denies tongue swelling Physical Exam Vital Signs: Last Vital Signs Pulse 104 H 12/29/24 14:04 BP 113/70 12/29/24 14:04 Pulse Ox 99 12/29/24 14:04 Oxygen Delivery Method Room Air 12/29/24 14:04 BMI result Body Mass Index 26.0 Const General: cooperative, no acute distress, well developed and well groomed Nutritional Appearance: average body habitus and well nourished Orientation/consciousness: oriented to person, oriented to place and oriented to time Limitations: No language barrier HEENT Head: Yes normocephalic and Yes atraumatic Eyes General: appearance normal, both eyes and all related structures Pupils: Equal, round and reactive pupils present Neck Neck: Yes normal visual inspection and Yes no lymphadenopathy Thyroid: Thyroid normal Resp Effort & Inspection: normal respiratory effort and able to speak in complete sentences Auscultation: clear to auscultation bilaterally Cardio Rate: regular rate Rhythm: regular rhythm Heart sounds: Normal, physiologic split S2 sound present Peripheral pulses: radial pulses present and posterior tibial pulses present GI Inspection: No distended and No Abdominal panniculus present Palpation (GI): Soft to palpation, nontender, no guarding, not rigid and No hepatosplenomegaly present Percussion: Yes normal to percussion Auscultation: normal bowel sounds Rectal Exam - Female: deferred Skin General skin exam: no rashes or lesions noted, turgor normal, skin not dry, no jaundice, No spider nevi and no striae Rashes: no rashes Nails: normal Neuro General: oriented to person, oriented to place and oriented to time Cranial nerves: Yes Equal, round and reactive pupils present and Yes Normal hearing present Speech: No Abnormal speech present Extrem General: Yes normal to inspection, No clubbing, No cyanosis and No edema Psych Appearance: grossly normal and well kempt Mental Status: mental status grossly normal Speech and movement: Normal speech and movement present Affect: normal affect Attitude: cooperative Thought process: Circumstantial thought process present and not confabulating Thought content: Normal thought content present Insight: Limited insight present (Psych) Judgement: Limited judgement present (Psych) Assessment & Plan Assessment & Plan (1) Small bowel motility disorder: Code(s): K59.9 - Functional intestinal disorder, unspecified Category: Medical (2) GERD (gastroesophageal reflux disease): Comment: This resolved after we got her bowels moving and she does not need any acid suppression therapy aeb Code(s): K21.9 - Gastro-esophageal reflux disease without esophagitis Category: Medical (3) Chronic idiopathic constipation: Code(s): K59.04 - Chronic idiopathic constipation Category: Medical Plan (She continues on her bisacodyl, dicyclomine, famotidine, Proctosol cream for hemorrhoids, Linzess 290 micro g, Creon 24,000, omeprazole 40 mg a day, MiraLax, Zofran as needed, senna, and simethicone. Medications that could be confounding our efforts towards bowel motility include Effexor, Seroquel, clonidine, amitriptyline, and she is on methylphenidate and I am uncertain how this impacts her bowels. You would think it would stimulate them but apparently that has not the case. am referring her to [facility] for 2nd opinion since she has seen a physician here without resolution of her condition and I have worked with her for quite a long time and I just can not seem to get a handle on how to manage her overall burden. She does not see [facility] until 10/2024!!) She missed her appt at [facility] r/t transportation. She is uncertain if she can reschedule this w/o the same problem. Same sx, except nausea has greatly worsened, BUT reglan seems to have fallen off of her medication list. Will restart. She was using zofran, but this will not hlpe to address the underlying motility problem and pain. I would not use misoprostol becasue of her nausea. May need to see if there are any other off label unusual tx. Uncertain what to do next, as we have tried all of the medication available, and she has transportation problems. ROV 3 mos. Orders: Referrals Gastroenterology Referral K59.04 - Chronic idiopathic constipation Medications: New misoprostol 200 mcg PO BID 60 tabs 6RF K59.04 - Chronic idiopathic constipation, K59.9 - Functional intestinal disorder, unspecified metoclopramide HCl (Reglan) 10 mg PO QIDACHS 120 tabs 12RF K59.9 - Functional intestinal disorder, unspecified Refilled dicyclomine 10 mg PO QID 120 caps 6RF simethicone 180 mg PO QID 120 caps 6RF prucalopride 2 mg PO DAILY 30 tabs 6RF K58.1 - Irritable bowel syndrome with constipation bisacodyl 10 mg (2 x 5 mg) PO BEDTIME 60 tabs 6RF rabeprazole 20 mg PO BID 60 tabs 6RF K21.9 - Gastro-esophageal reflux disease without esophagitis, R11.2 - Nausea with vomiting, unspecified Discontinued tenapanor (Ibsrela) must administer immediately before first meal of day/breakfast and dinner Discontinued Reason: Doctor's Order 50 mg PO BID 60 tabs 6RF K59.04 - Chronic idiopathic constipation Coding Level of Care Code Est Pt Level 3 (14430) Diagnoses Small bowel motility disorder K59.9 GERD (gastroesophageal reflux disease) K21.9 Chronic idiopathic constipation K59.04
--- OUTSIDE RECORDS SUMMARY | 2024-12-29 14:05 | XMS_ITS | Encounter Summary ---
Author Organization [employer] Address [address] [place] [address] Care Team Providers Care Cross Tie Tram Loader Name Role Phone Name, Ham HERRING Primary Care Provider [phone] Reason for Visit * Reason Comments Med Refill Encounter Details Date Type Department Care Team ([facility] st Contact Info) Description 04/18/2024 Refill [facility] [address] [place], [place] [id number] Name, MD Ham [address] [place] [address] Acute herpes zoster neuropathy Social History Tobacco [...] Care Team (Late st Contact Info) Description 01/11/2025 10:30 AM EDT Medication Management [facility] [address] [place] [id number] Marya Echavarria, PharmD [address] [place] [id number] 04/02/2025 10:00 AM EDT Office Visit [facility] [address] [place] [id number] Name, MD Ham [address] [place] [id number] documented as of this encounter Visit Diagnoses Diagnosis Acute herpes zoster neuropathy documented in this encounter Additional Health Concerns Assessment Noted Time PHQ-9 Depression Total Score: 11 024 3:36 PM EDT documented as of this encounter Care Teams Cross Tie Tram Loader Relationship Specialty Start Date End Date NameHam MD [address] [place] [id number] PCP - General Family Medicine 01/28/16 documented as of this encounter
== END 2024-12-29 14:40 | disposition home or self-care (01) ==
LOC: HO.HGI 14:04
PROVIDERS: PCP Internal Medicine Geriatric Medicine; Visit Provider Nurse Practitioner
DX: K59.9 Functional intestinal disorder, unspecified (principal); K21.9 Gastro-esophageal reflux disease without esophagitis; K59.04 Chronic idiopathic constipation
CPT/HCPCS: 99213

== ENCOUNTER → 2024-12-29 14:03 | Outpatient (BNVA) | payer OTHER, SELFPAY | PROVIDERS: PCP Internal Medicine Geriatric Medicine; Visit Provider Nurse Practitioner | DX: K59.04 Chronic idiopathic constipation (principal); K21.9 Gastro-esophageal reflux disease without esophagitis; K58.1 Irritable bowel syndrome with constipation; R82.998 Other abnormal findings in urine; R11.2 Nausea with vomiting, unspecified; K59.9 Functional intestinal disorder, unspecified; Z87.440 Personal history of urinary (tract) infections | CPT/HCPCS: 99212 ==

== ENCOUNTER 2025-04-02 10:10 | Outpatient (REF) | payer OTHER, SELFPAY ==
--- OUTSIDE RECORDS SUMMARY | 2025-04-02 11:16 | XMS_ITS | Patient Health Record ---
Author Organization [facility] Address [address] [place] [address] Care Team Providers Care [employer] Superintendent Name Role Phone Dragan Tejeda Jr [phone] Reason For Referral No Information Plan Of Treatment No Information
[2025-04-02 11:46] LABS: Alanine Aminotransferase 23 U/L (0-31); Albumin Level 4.3 g/dL (3.5-5.0); Alkaline Phosphatase 115 U/L (39-117); Anion Gap 13 (12-20); Aspartate Amino Transferase 21 U/L (5-31); Blood Urea Nitrogen 15 mg/dL (9-16); Calcium 9.7 mg/dL (8.4-10.2); Carbon Dioxide 30 mmol/L (22-29); Chloride 102 mmol/L (96-108); Estimated Glomerular Filt Rate 45; Magnesium 2.3 mg/dL (1.6-2.6); Potassium 4.1 mmol/L (3.3-5.1); Sodium 141 mmol/L (135-145); Total Protein 6.7 g/dL (6.5-8.0)
[2025-04-02 12:07] LABS: Cholesterol 167 mg/dL (<200); HDL Cholesterol 57 mg/dL (>40); Triglycerides 145 mg/dL (<150)
[2025-04-02 12:10] LABS: Hemoglobin A1C 163.2024 umol/L; Total Hemoglobin (HGBA1C) 3536.0571 umol/L
[2025-04-02 12:46] LABS: Reflex LDLD? No
== END 2025-04-02 10:11 | disposition home or self-care (01) ==
LOC: HO.HHCL 10:10
PROVIDERS: Emergency Medicine; PCP Internal Medicine Geriatric Medicine; Visit Provider Internal Medicine Geriatric Medicine
DX: E87.6 Hypokalemia (principal); E83.42 Hypomagnesemia; E11.9 Type 2 diabetes mellitus without complications
CPT/HCPCS: 36415; 80053; 80061; 83036; 83735

== ENCOUNTER 2025-05-09 07:50 | Emergency (ER) | payer OTHER, SELFPAY ==
--- OUTSIDE RECORDS SUMMARY | 2025-05-08 09:38 | XMS_ITS | Encounter Summary ---
Author Organization [facility] Address [address] [place] [address] Care Team Providers Care Final Assembler Boat Name Role Phone Physician, No Pcp Primary Care Provider Unavaila ble Reason for Visit * Reason Comments Weakness - Generalized Encounter Details Date Type Department Care Team (Late st Contact Info) Description 05/08/2025 9:38 AM EDT - 05/08/2025 2:20 PM EDT Emergency [facility] Emergency [address] [place] [id number] Tee Campbell MD [address], [place] [id number] Weakness (Primary Dx); Hypokalemia Discharge Disposition: Home or Self Care Social History Tobacco Use Types Packs/Day Years Used Date Smoking Tobacco: Never Alcohol Use Standard Drinks/Week Comments No 0 (1 standard drink = 0.6 oz pur e alcohol) Comments Unknown Sex and Gender Information Value Date Recorded Sex Assigned at Not on file Legal Sex Female 1:55 PM EST Gender Identity Not on file Sexual Orientation Not on file documented as of this encounter Last Filed Vital Signs Vital Sign Reading Time Taken Comments Blood Pressure 135/82 05/08/2025 10:10 AM EDT Pulse 83 05/08/2025 10:10 AM EDT Temperature 36.8 C (98.2 F) 05/08/2025 10:10 AM EDT Respiratory Rate 15 05/08/2025 10:10 AM EDT Oxygen Saturation 100% 05/08/2025 10:10 AM EDT Inhaled Oxygen Concentration - - Weight - - Height - - Body Mass Index - - documented in this encounter Functional Status * Are you deaf or do you have serious difficulty hearing? Answer Date of Assessment Author No 05/08/2025 10:28 AM EDT Lorna Meléndez RN * Are you blind or do you have serious difficulty seeing, even when wearing glasses? Answer Date of Assessment Author No 05/08/2025 10:28 AM EDT Lorna Meléndez RN * Do you have serious difficulty walking or climbing stairs? Answer Date of Assessment Author No 05/08/2025 10:28 AM Lorna Patrick RN * Do you have serious difficulty dressing or bathing? Answer Date of Assessment Author No 05/08/2025 10:28 AM EDT Lorna Meléndez RN * Because of a physical, mental, or emotional condition, do you have serious difficulty doing errandsalone such as visiting the doctor? Answer Date of Assessment Author No 05/08/2025 10:28 AM CROWT Lorna Meléndez RN * Calculated C-SSRS Risk Score (Lifetime/Recent) Answer Date of Assessment Author No Risk Indicated 05/08/2025 10:24 AM EDT Lorna Musa RN * Melvin Suicide Severity Rating Scale (Screener/Recent Self-Report) Question Answer Date of Assessment Author 1. Wish to be (Past 1 Month) No 025 10:24 AM EDLorna Christensen RN 2. Non-Specific Active Suici carla Thoughts (Past 1 Month) No 05/08/2025 10:24 AM EDT Amilcar Meléndez RN 6. Suicidal Behavior (Lifetime) No 10:24 AM Lorna Patrick RN documented as of this encounter Mental Status * Because of a physical, mental, or emotional condition, do you have serious difficulty concentrating, remembering, or making decisions? (5 years old or older) Answer Entry Date Author No 05/08/2025 10:28 AM Lorna Patrick RN documented in this encounter Discharge Instructions * Discharge Instructions* ARI Garcia - 05/08/2025 1:12 PM EDT You were seen and evaluated in the emergency department for weakness. Please follow up with your primary care doctor in the next week. Please seek medical attention if you have any new or worsening symptoms, or if you develop vision changes, headache, chest pain, palpitations, difficulty breathing,shortness of breath, nausea, vomiting, difficulty walking, or weakness. * Attachments The following attachments cannot be sent through Care Everywhere. * Weakness: Generalized (Guatemalan) documented in this encounter Medications at Time of Discharge Mounjaro 5 mg/0.5 mL injection Inject 0.5 mL (5 mg total) under the skin every 7 (seven) days. Tuesdays02/07/2025 simethicone (MYLICON,GAS-X) 180 mg capsule Take 1 capsule (180 mg total) by mouth 4 (four) times a day if needed (PRN). tamsulosin (FLOMAX) 0.4 mg 24 hr capsule Take 1 capsule (0.4 mg total) by mouth 1 (one) time each day. 10/11/2024 venlafaxine XR (EFFEXOR-XR) 150 mg 24 hr capsule Take 1 capsule (150 mg total) by mouth 1 (one) time each day. 06/23/2022 zolpidem tartrate (AMBIEN ORAL) Take 10 mg by mouth if needed (PRN). Per patient takes every night. documented as of this encounter Discharge Disposition Disposition Code Departure Means Destination Comment s Home or Self Retirement documented in this encounter Progress Notes * Lorna Meléndez RN - 05/08/2025 9:47 AM EDT [place] ambulance [place] airport with unset of weakness, denies pain, IV 18 g LAC, 750 ml NS given in route. BP 106/74 HR 80 RR 18 BP 128/70 post-fluid O2 Sat 100% BGL 221 Active Ambulatory Problems Diagnosis Date Noted No Active Ambulatory Problems Resolved Ambulatory Problems Diagnosis Date Noted No Resolved Ambulatory Problems Past Medical History: Diagnosis Date Anxiety state, unspecified Chronic gastric ulcer without mention of hemorrhage or perforation, with obstruction Kidney disorder * ARI Garcia - 05/08/2025 9:35 AM EDT HPI Chief Complaint Patient presents with Weakness - Generalized HPI Patient is a 69 year old female with a past medical history signifcant for DM. Patient is brought in by EMS from [facility]. Per EMS, they were called for the unresponsive person on the plane. EMS reports that patient had a blood pressure of 100/70, which improved to 128/70 after 750mL of fluids. EMS also reports an initial BGL of 190. EMS stated that patient was difficult to arouse. Patientwas somnolent but arousable. Patient reports that she was going to fly to [place] this morning with her family. She was at the airport when she began to feel nauseous and dizzy. Patient denies headache, vision changes, chest pain, palpitations, difficulty breathing, shortness of breath, cough, diarrhea, syncope, loss of consciousness. [place] Coma Scale Score: 15 Patient History Medical History[1] Surgical History[2] Family History[3] Social History Tobacco Use Smoking status: Never Smokeless tobacco: Not on file Substance Use Topics Alcohol use: No Drug use: No Review of Systems Review of Systems Constitutional: Negative for chills and fever. HENT: Negative for sinus pain and sore throat. Respiratory: Negative for cough, chest tightness and shortness of breath. Cardiovascular: Negative for chest pain and palpitations. Gastrointestinal: Negative for abdominal pain, diarrhea, nausea and vomiting. Genitourinary: Negative for dysuria, flank pain and frequency. Skin: Positive for pallor. Neurological: Positive for dizziness. Negative for syncope, weakness, light- headedness and headaches. Physical Exam ED Triage Vitals Temp Pulse Resp BP -- -- -- -- SpO2 Temp src Heart Rate Source Patient Position -- -- -- -- BP Location FiO2 (%) -- -- Physical Exam Vitals reviewed. Constitutional: General: She is not in acute distress. Appearance: Normal appearance. She is ill-appearing and diaphoretic. HENT: Head: Normocephalic and atraumatic. Mouth/Throat: Mouth: Mucous membranes are moist. Cardiovascular: Rate and Rhythm: Normal rate and regular rhythm. Pulses: Normal pulses. Heart sounds: Normal heart sounds. No murmur heard. No friction rub. No gallop. Pulmonary: Effort: Pulmonary effort is normal. No respiratory distress. Breath sounds: Normal breath sounds. No wheezing, rhonchi or rales. Abdominal: General: There is no distension. Palpations: Abdomen is soft. Tenderness: There is no abdominal tenderness. There is no guarding. Musculoskeletal: Cervical back: Normal range of motion and neck supple. No rigidity. Skin: General: Skin is warm. Capillary Refill: Capillary refill takes less than 2 seconds. Comments: Diaphroetic Neurological: Mental Status: She is alert and oriented to person, place, and time. Comments: somnolent but arousable ED Course & MDM ED Course as of 05/08/25 1357 Tue May 08, 2025 1032 Glucose POCT: 161 [HR] 1125 EKG shows afib, repeat EKG in 90 minutes [HR] 1254 Troponin WNL, CMP significant for potassium of 3.3, willl replete. CBC WNL [HR] 1257 Patient reassessed, family at bedside. Patient is sitting up in bed, laughing with family. Appears to be significantly improved since presentation. Patient denies any symptoms and is requesting to be discharged. Discharge pending potassium repletion and repeat EKG. [HR] 1310 Repeat EKG shows NSR. [HR] ED Course User Index [HR] ARI Garcia Clinical Impressions as of 05/08/25 1357 Weakness Hypokalemia Medical Decision Making Patient is a 69 year old female with a past medical history signifcant for DM. Patient is brought in by EMS from [facility]. Patient smells of alcohol. Somnolent but arousable. Differential remains broad at this time. Ordered EKG and lab work to rule out cardiac causes of altered consciousness. CBC, CMP, mag, lactate, phosphorous ordered to rule out electrolyte abnormalities. Ethanol and urine tox screen ordered to rule out toxicities. Reassessment to follow results of lab work. Procedures ARI Garcia 05/08/25 1021 ARI Garcia 05/08/25 1210 [1] Past Medical History: Diagnosis Date Anxiety state, unspecified DX:Anxiety state, unspecified Chronic gastric ulcer without mention of hemorrhage or perforation, with obstruction DX:Chronic gastric ulcer without mention of hemorrhage or perforation, with obstruction Kidney disorder DX:Kidney disorder; COMMENT: stones [2] Past Surgical History: Procedure Laterality Date CHOLECYSTECTOMY PROCEDURE: HISTORICAL CHOLECYSTECTOMY LITHOTRIPSY PROCEDURE: HISTORICAL LITHOTRIPSY; COMMENT: ? TUBAL LIGATION PROCEDURE: HISTORICAL TUBAL LIGATION [3] Family History Problem Relation Name Age of Onset Breast cancer Neg Hx Colon cancer Neg Hx Ovarian cancer Neg Hx ARI Garcia 05/08/25 1357 Cosigned by Tee Campbell MD at 05/08/2025 5:07 PM EDT Associated attestation - Tee Campbell MD - 05/08/2025 5:07 PM EDT I performed a history and physical examination and discussed the patient management with preceding Advanced Practice Provider. I agree with the history and physical assessment and plan of care, with the following exceptions: initial EKG did not demonstrate atrial fibrillation. There was too much artifact to make that determination and thus a second EKG was ordered which demonstrated normal sinus rhythm. Patient came in for tiredness altered mental status nausea patient's workup here was unrevealing initial EKG there was some question of possible atrial fibrillation repeat EKG showed normal sinus rhythm patient currently symptom- free did not syncopized no chest pain no shortness of breath no changein mental status lungs are clear to auscultation normal S1-S2. Given patient looks overall extremely well she would prefer to be discharged home at this time. I was present for the following cool procedures: None Tee Campbell MD documented in this encounter Plan of Treatment Pending Results Name Type Priority Associated Diagnoses Date /Time POC Glucose Manually Resulted Point of Care Testing STAT 05/08/2025 11:27 AM EDT ECG 12 lead ECG STAT 05/08/2025 10 :43 AM EDT ECG 12 lead ECG STAT 05/08/2025 1: 07 PM EDT Scheduled Orders Name Type Priority Associated Diagnoses Orde r Schedule POC Glucose Manually Resulted Point of Care Testing STAT STAT for 1 Occurrences starting 05/08/2025 until 05/08/2025 documented as of this encounter Procedures Procedure Name Priority Date/Time Associated Diagnosis Comments ECG 12-LEAD STAT 05/08/2025 1:07 PM EDT LACTATE, WITH REFLEX STAT 05/08/2025 11:38 AM EDT TROPONIN I HIGH SENSITIVITY STAT 05/08/2025 11:38 AM EDT CBC WITH AUTO DIFFERENTIAL STAT 05/08/2025 11:38 AM EDT CBC AND DIFFERENTIAL STAT 05/08/2025 11:38 AM EDT PHOSPHORUS STAT 05/08/2025 11:38 AM EDT MAGNESIUM STAT 05/08/2025 11:38 AM EDT ETHANOL STAT 05/08/2025 11:38 AM EDT COMPREHENSIVE METABOLIC PANEL STAT 05/08/2025 11:38 AM EDT ECG 12-LEAD STAT 05/08/2025 10:43 AM EDT POCT GLUCOSE BLOOD Routine 05/08/2025 10 :21 AM EDT documented in this encounter Results * (ABNORMAL) CBC auto differential (05/08/2025 11:38 AM EDT) [facility] WBC 6.4 4.0 - 10.5 K/mcL LAB HEMETOLOGY METHOD 05/08/2025 12:02 PM EDT [facility] RBC 4.58 4.20 - 5.40 M/mcL LAB HEMETOLOGY METHOD 05/08/2025 12:02 PM EDT [facility] Hemoglobin 11.7(L) 12.5 - 16.0 g/dL LAB HEMETOLOGY METHOD 05/08/2025 12:02 PM EDT [facility] Hematocrit 35.4(L) 37.0 - 47.0 % LAB HEMETOLOGY METHOD 05/08/2025 12:02 PM EDT [facility] MCV 77.3(L) 78.0 - 100.0 FL LAB HEMETOLOGY METHOD 05/08/2025 12:02 PM EDT [facility] MCH 25.6 25.0 - 33.0 pcg LAB HEMETOLOGY METHOD 05/08/2025 12:02 PM EDT [facility] MCHC 33.0 32.0 - 36.0 g/dL LAB HEMETOLOGY METHOD 05/08/2025 12:02 PM EDT [facility] RDW 13.4 12.1 - 16.2 % LAB HEMETOLOGY METHOD 05/08/2025 12:02 PM EDT [facility] Platelets 233 150 - 450 K/mcL LAB HEMETOLOGY METHOD 05/08/2025 12:02 PM EDT [facility] MPV 8.8 7.4 - 11.4 FL LAB HEMETOLOGY METHOD 05/08/2025 12:02 PM EDT [facility] Neutrophils Relative 69.8 44.0 - 74.0 % LAB HEMETOLOGY METHOD 05/08/2025 12:02 PM EDT [facility] Lymphocytes Relative 24.3 20.0 - 48.0 % LAB HEMETOLOGY METHOD 05/08/2025 12:02 PM EDT [facility] Monocytes Relative 5.3 2.0 - 12.0 % LAB HEMETOLOGY METHOD 05/08/2025 12:02 PM EDT [facility] Eosinophils Relative 0.4 0.0 - 6.0 % LAB HEMETOLOGY METHOD 05/08/2025 12:02 PM EDT [facility] Basophils Relative 0.2 0.0 - 2.0 % LAB HEMETOLOGY [facility]08[facility] Neutrophils Absolute 4.50 1.80 - 7.80 K/mcL LAB HEMETOLOGY METHOD 05/08/2025 12:02 PM EDT [facility] Lymphocytes Absolute 1.60 1.00 - 3.20 K/mcL LAB HEMETOLOGY METHOD 05/08/2025 12:02 PM EDT [facility] Monocytes Absolute 0.30 0.00 - 0.80 K/mcL LAB HEMETOLOGY METHOD 05/08/2025 12:02 PM EDT [facility] Eosinophils Absolute 0.00 0.00 - 0.50 K/mcL LAB HEMETOLOGY METHOD 05/08/2025 12:02 PM EDT [facility] Basophils Absolute 0.00 0.00 - 0.20 K/mcL LAB HEMETOLOGY METHOD 05/08/2025 12:02 PM EDT [facility] Blood Venous blood specimen / Unknown Venipuncture / Unknown 05/08/2025 11:38 AM EDT 05/08/2025 11:50 AM EDT Tee Campbell MD LAB BLOOD ORDERABLES Final Result [facility] [address] [place] [address], [place] [phone] * Troponin I High Sensitivity (05/08/2025 11:38 AM EDT) Pathologist [facility] High Sensitivity Troponin I 4 0 - 14 ng/L LAB CHEMISTRY METHOD 05/08/2025 12:29 PM EDT [facility] Blood Venous blood specimen / Unknown Venipuncture / Unknown 05/08/2025 11:38 AM EDT 05/08/2025 11:50 AM EDT Narrative [facility] - 05/08/2025 12:29 PM EDT HSTnI results stratify to HIGH RISK category if any value >100 ng/L or delta at 1 hour is greater than or equal to 15 ng/L (male and female). Note: Delta values are not applicable if symptoms began more than 12 hours pre-arrival. Risk stratification should include the calculation of the HEART score. The testing method is an immunoenzymatic assay manufactured by [employer] and performed on the [employer] DxI 800. us Tee Campbell MD LAB BLOOD ORDERABLES Final Result Performing Organization Address City/[facility]/ZIP Co de Phone Number [facility] [address] [place] [address], [place] [phone] * Phosphorus (05/08/2025 11:38 AM EDT) Phosphorus 3.1 2.5 - 4.5 mg/dL LAB CHEMISTRY METHOD 05/08/2025 12:27 PM EDT [facility] Blood Venous blood specimen / Unknown Venipuncture / Unknown 05/08/2025 11:38 AM EDT 05/08/2025 11:50 AM EDT Tee Campbell MD LAB BLOOD ORDERABLES Final Result Performing Organization Address City/[facility]/ZIP Co de Phone Number [facility] [address] [place] [address], [place] [phone] * Magnesium (05/08/2025 11:38 AM EDT) [facility] Magnesium 2.1 1.7 - 2.8 mg/dL LAB CHEMISTRY METHOD 05/08/2025 12:27 PM EDT [facility] Blood Venous blood specimen / Unknown Venipuncture / Unknown 05/08/2025 11:38 AM EDT 05/08/2025 11:50 AM EDT Tee Campbell MD LAB BLOOD ORDERABLES Final Result Performing Organization Address City/[facility]/ZIP Co de Phone Number [facility] [address] [place] [address], [place] [phone] * Lactate, with Reflex (05/08/2025 11:38 AM EDT) LACTIC ACID 2.0 0.5 - 2.2 mmol/L LAB BLOOD GAS METHOD 05/08/2025 11:58 AM EDT [facility] Blood Venous blood specimen / Unknown Venipuncture / Unknown 05/08/2025 11:38 AM EDT 05/08/2025 11:50 AM EDT Tee Campbell MD LAB BLOOD ORDERABLES Final Result [facility] [address] [place] [address], [place] [phone] * Ethanol (05/08/2025 11:38 AM EDT) Ethanol Level <10 0 - 10 mg/dL LAB CHEMISTRY METHOD 05/08/2025 12:27 PM EDT [facility] Blood Venous blood specimen / Unknown Venipuncture / Unknown 05/08/2025 11:38 AM EDT 05/08/2025 11:50 AM EDT Narrative [facility] - 05/08/2025 12:27 PM EDT Medical Purpose Results of this test are to be used for medical purposes only Tee Campbell MD LAB BLOOD ORDERABLES Final Result [facility] [address] [place] [address], [place] [phone] * (ABNORMAL) Comprehensive Metabolic Panel (CMP) (05/08/2025 11:38 AM EDT) Sodium 144 135 - 145 mmol/L LAB CHEMISTRY METHOD 05/08/2025 12:27 PM EDT [facility] Potassium 3.3(L) 3.5 - 5.1 mmol/L LAB CHEMISTRY METHOD 05/08/2025 12:27 PM EDT [facility] Chloride 108(H) 98 - 107 mmol/L LAB CHEMISTRY METHOD 05/08/2025 12:27 PM EDT [facility] CO2 24 24 - 32 mmol/L LAB CHEMISTRY METHOD 05/08/2025 12:27 PM [facility] Anion Gap 12 5 - 14 LAB CHEMISTRY METHOD 05/08/2025 12:27 PM [facility] Glucose 112 70 - 199 mg/dL LAB CHEMISTRY METHOD 05/08/2025 12:27 PM [facility] BUN 15 7 - 17 mg/dL LAB CHEMISTRY METHOD 05/08/2025 12:27 PM [facility] Creatinine 1.10(H) 0.50 - 1.00 mg/dL LAB CHEMISTRY METHOD 05/08/2025 12:27 PM [facility] eGFR 55(L) >=60 mL/min/1. 73m2 LAB CHEMISTRY METHOD 05/08/2025 12:27 PM [facility] Comment:Calculation based on the Chronic Kidney Disease Epidemiology Collaboration (CKD-EPI) equation refit without adjustment for race. BUN/Creatinine Ratio 13.6 12.0 - 20.0 LAB CHEMISTRY METHOD 05/08/2025 12:27 PM [facility] Calcium 8.2(L) 8.4 - 10.2 mg/dL LAB CHEMISTRY METHOD 05/08/2025 12:27 PM [facility] AST (SGOT) 18 5 - 40 unit/L LAB CHEMISTRY METHOD 05/08/2025 12:27 PM [facility] ALT (SGPT) 16 7 - 52 unit/L LAB CHEMISTRY METHOD 05/08/2025 12:27 PM [facility] Alkaline Phosphatase 94 34 - 104 unit/L LAB CHEMISTRY METHOD 05/08/2025 12:27 PM [facility] Total Protein 6.4 6.4 - 8.5 g/dL LAB CHEMISTRY METHOD 05/08/2025 12:27 PM [facility] Albumin 4.1 3.5 - 5.0 g/dL LAB CHEMISTRY METHOD 05/08/2025 12:27 PM EDT [facility] Total Bilirubin 0.4 0.3 - 1.0 mg/dL LAB CHEMISTRY METHOD 05/08/2025 12:27 PM EDT [facility] Blood Venous blood specimen / Unknown Venipuncture / Unknown 05/08/2025 11:38 AM EDT 05/08/2025 11:50 AM EDT Tee Campbell MD LAB BLOOD ORDERABLES Final Result [facility] [address] [place] [address], [place] [phone] * POCT Glucose, blood (05/08/2025 10:21 AM EDT) [facility] Glucose POCT 161 70 - 199 mg/dL 05/08/2025 10:22 AM EDT [facility] Comment: Fasting Reference Range: 70-99 mg/dL Non-Fasting Reference Range: 70-199 mg/dL Blood Capillary blood specimen / Unknown 05/08/2025 10:21 AM EDT 05/08/2025 10:23 AM EDT Tee Campbell MD LAB POINT OF CARE T EST DOCKED DEVICE UNSOLICITED RESULTS Final Result Performing Organization Address [facility]/ZIP Co de Phone Number [facility] [address] [place] [address], [place] [phone] documented in this encounter Visit Diagnoses Diagnosis Weakness- Primary Other malaise and fatigue Hypokalemia Hypopotassemia documented in this encounter Administered Medications Inactive Administered Medications - up to 3 most recent administrations Medication Order MAR Action Action Date Dose Rate Site potassium chloride (KLOR-CON M20) CR tablet 20 mEq 20 mEq, oral, Once, On Wed05/08/25 at 1456, For 1 dose, Tablet may be swallowed whole (do not crush/chew/suck on) OR broken in half and each half swallowed separately OR dissolved (whole tablet) in ~4 ounces of water (allow ~2 minutes to dissolve, stir well and administer immediately). Given 05/08/2025 2:13 PM EDT 20 mEq potassium chloride (KLOR-CON M20) CR tablet 40 mEq 40 mEq, oral, Once, On Wed05/08/25 at 1256, For 1 dose, Tablet may be swallowed whole (do not crush/chew/suck on) OR broken in half and each half swallowed separately OR dissolved (whole tablet) in ~4 ounces of water (allow ~2 minutes to dissolve, stir well and administer immediately). Given 05/08/2025 1:50 PM EDT 40 mEq sodium chloride 0.9 % bolus 1,000 mL 1,000 mL, intravenous, at 2,000 mL/hr, Administer over 30 Minutes, Once, On Wed05/08/25 at 1003, For 1 dose New Bag 05/08/2025 10:32 AM EDT 1,000 mL 2000 mL/hr documented in this encounter Historical Medications * This list may reflect changes made after this encounter. venlafaxine XR (EFFEXOR-XR) 150 mg 24 hr capsule Take 1 capsule (150 mg total) by mouth 1 (one) time each day. 06/23/2022 Mounjaro 5 mg/0.5 mL injection Inject 0.5 mL (5 mg total) under the skin every 7 (seven) days. Tuesdays02/07/2025 tamsulosin (FLOMAX) 0.4 mg 24 hr capsule Take 1 capsule (0.4 mg total) by mouth 1 (one) time each day. 10/11/2024 simethicone (MYLICON,GAS-X) 180 mg capsule Take 1 capsule (180 mg total) by mouth 4 (four) times a day if needed (PRN). zolpidem tartrate (AMBIEN ORAL) Take 10 mg by mouth if needed (PRN). Per patient takes every night. added in this encounter Active and Recently Administered Medications Times are shown in EDT. Scheduled Medication Order 05/06/2025 05/07/2025 05/08/2025 potassium chloride (KLOR-CON M20) CR tablet 20 mEq (COMPLETED)(Linked Group 1) 20 mEq, oral, Once, On Wed05/08/25 at 1456, For 1 dose, Tablet may be swallowed whole (do not crush/chew/suck on) OR broken in half and each half swallowed separately OR dissolved (whole tablet) in ~4 ounces of water (allow ~2 minutes to dissolve, stir well and administer immediately). 1413 (Given - Provid er: Lorna Meléndez RN) potassium chloride (KLOR-CON M20) CR tablet 40 mEq (COMPLETED)(Linked Group 1) 40 mEq, oral, Once, On Wed05/08/25 at 1256, For 1 dose, Tablet may be swallowed whole (do not crush/chew/suck on) OR broken in half and each half swallowed separately OR dissolved (whole tablet) in ~4 ounces of water (allow ~2 minutes to dissolve, stir well and administer immediately). 1350 (Given - Provid er: Lorna Meléndez RN) sodium chloride 0.9 % bolus 1,000 mL (COMPLETED) 1,000 mL, intravenous, at 2,000 mL/hr, Administer over 30 Minutes, Once, On Wed05/08/25 at 1003, For 1 dose 1032 (New Bag - Prov ider: Lorna Meléndez RN)1126 (Stopped - Provider: Lorna Meléndez RN) Linked Groups Order Group 1: potassium chloride (KLOR-CON M20) CR tablet 40 mEq (COMPLETED)Jump to med 40 mEq, oral, Once, On Wed05/08/25 at 1256, For 1 dose, Tablet may be swallowed whole (do not crush/chew/suck on) OR broken in half and each half swallowed separately OR dissolved (whole tablet) in ~4 ounces of water (allow ~2 minutes to dissolve, stir well and administer immediately). Followed by potassium chloride (KLOR-CON M20) CR tablet 20 mEq (COMPLETED)Jump to med 20 mEq, oral, Once, On Wed05/08/25 at 1456, For 1 dose, Tablet may be swallowed whole (do not crush/chew/suck on) OR broken in half and each half swallowed separately OR dissolved (whole tablet) in ~4 ounces of water (allow ~2 minutes to dissolve, stir well and administer immediately). documented in this encounter Care Teams Final Assembler Boat Relationship Specialty Start Date End Date Physician, No Pcp PCP - General 05/08/25 documented as of this encounter
[2025-05-09 07:57] VITALS: BP 138/90; BP 160/92; PULSE 84; PULSE 89; RESP 18; TEMP 36.7; O2SAT 100; BMI 23.5
--- NOTE | 2025-05-09 08:08 | ED.GENADULT ---
HPI - General Adult General Chief complaint: Nausea/Vomiting/Diarrhea Stated complaint: DRY HEAVES,HALLUCINATIONS,SEEN T-1 PER EMS Time Seen by Provider: 05/09/25 08:02 Source: family and EMS Mode of arrival: ambulatory Limitations: altered mental status History of Present Illness ED Provider: HPI narrative: 69-year-old woman with a history of IBS, schizophrenia, pancreatitis, here with her daughter, initially EMS was called for patient was nauseous, dry heaving, and hallucinating, patient sticks her fingers down her throat to throw up, at the time of my initial evaluation daughter was not at bedside patient is not sure what year it is, she is a limited historian, and was just saying' I do not know' to all my questions, and did not have any complaints. Sounds like 2 days ago she was supposed to be on a plane to fly to [place] and she started becoming clammy, nauseous, was taken to [facility] and there she was given fluids and then discharged, daughter states she does have history of UTI that can present like this and apparently her urine has not been checked. No reports of drug use. She reportedly takes all her medications on regular basis. These are set up for her by her . Related Data Home Medications ?Medication ?Instructions ?Recorded ?Confirmed brimonidine 0.2 %-timolol 0.5 % 1 drp ophthalmic-Right BID 12/13/21 11/02/24 eye drops (Combigan) latanoprost 0.005 % eye drops 1 drp ophthalmic (eye) BID 11/10/22 11/02/24 alprazolam 1 mg tablet 1 mg PO QID PRN Anxiety 07/11/24 11/02/24 hydroxyzine pamoate 50 mg capsule 50 mg PO BID PRN Anxiety 07/11/24 11/02/24 methylphenidate HCl 20 mg 20 mg PO BID 07/11/24 11/02/24 tablet,extended release quetiapine 400 mg tablet,extended 400 mg PO BEDTIME 07/11/24 11/02/24 release 24 hr venlafaxine 75 mg capsule,extended 150 mg PO DAILY 07/11/24 11/02/24 release 24 hr zolpidem 10 mg tablet 10 mg PO BEDTIME PRN Insomnia 07/11/24 11/02/24 dulaglutide 0.75 mg/0.5 mL 0.75 mg subcut QWEEK 11/02/24 11/02/24 subcutaneous pen injector (Trulicity) metformin 500 mg tablet 500 mg PO BID 11/23/24 Previous Rx's ?Medication ?Instructions ?Recorded sennosides 8.6 mg tablet (senna) 17.2 mg (2 x 8.6 mg) PO BEDTIME 12/21/23 constipation #60 tabs prazosin 2 mg capsule 6 mg (3 x 2 mg) PO BEDTIME #90 caps 04/25/24 bisacodyl 5 mg tablet,delayed 10 mg (2 x 5 mg) PO BEDTIME #60 12/29/24 release tabs dicyclomine 10 mg capsule 10 mg PO QID #120 caps 12/29/24 metoclopramide HCl 10 mg tablet 10 mg PO QIDACHS #120 tabs 12/29/24 (Reglan) misoprostol 200 mcg tablet 200 mcg PO BID #60 tabs 12/29/24 prucalopride 2 mg tablet 2 mg PO DAILY #30 tabs 12/29/24 rabeprazole 20 mg tablet,delayed 20 mg PO BID #60 tabs 12/29/24 release simethicone 180 mg capsule 180 mg PO QID #120 caps 12/29/24 Linzess 290 mcg capsule 290 mcg PO DAILY #30 caps 03/14/25 (linaclotide) famotidine 40 mg tablet 40 mg PO BEDTIME #90 tabs 03/14/25 polyethylene glycol 3350 17 17 g PO DAILY #238 grams 04/12/25 gram/dose oral powder [id number] 1 cap PO QID #100 caps 05/01/25 24,000-76,000-120,000 unit capsule,delayed rel (Creon) Allergies Allergy/AdvReac Type Severity Reaction Status Date / Time No Known Allergies (No Known Allergy Verified 05/09/25 08:05 Allergies*) Review of Systems Constitutional: Constitutional: Reports as per [facility] Past Medical History Medical History Bipolar disorder PTSD (post-traumatic stress disorder) Depression Anxiety Fibromyalgia Schizophrenia Anemia Ileus Tubular adenoma of colon History of pancreatitis Irritable bowel syndrome with constipation Diverticulitis GERD (gastroesophageal reflux disease) Chronic idiopathic constipation Surgical History History of esophagogastroduodenoscopy (EGD) Hx of colonoscopy Family History Family History Father No problems noted. Mother Diabetes Melanoma Family history of hypertension Family history of diabetes mellitus Social History Social History Household Members: Significant Other Housing: House Are you a primary transitions rn care coordinator to a significant other at home: No Do you presently have visiting nurse or other home services: No Alcohol intake: never Patient Tobacco Use Status: Never used Tobacco Smoked in Last 30 Days: No Second Hand Smoke Exposure: No Use of substances other than those prescribed or required for medical reasons: No Advance Directives: No Advance Directives Information Provided: No service: No Current occupational status: disabled Sexual orientation: Straight/Heterosexual Physical Exam ED Vital Signs: Vital Signs - 24 hr 05/09/25 07:57 Temperature 98.0 F Pulse Rate 84 Respiratory Rate 18 Blood Pressure 160/92 H Pulse Oximetry 100 Oxygen Delivery Method Room Air BMI result Body Mass Index 23.5 Const Other: General: ?Appears of stated age ? ?PERRLA, EOMI, MMM, ? Neck: Supple, no LAD ? ?CV: RRR, no obvious murmurs appreciated ? ?Resp: ?No wheezing rales rhonchi no stridor moving air well ? Abd: ?Bowel sounds are present, no tenderness no rebound no rigidity ? ?MSK: FROM, strength 5/5 all extremities ? Skin: Warm, dry, intact, ? ?Neuro: ?Alert and oriented to self, date of , no she is at a hospital, moving upper and lower extremities symmetrically, no obvious facial asymmetry noted, cranial nerves 2-12 intact Psych: Somewhat anxious affect, tremulousness Medications Administered Discontinued Medications Generic Name Dose Route Start Last Admin Trade Name Freq PRN Reason Stop Dose Admin Diazepam 5 mg 05/09/25 08:34 05/09/25 08:48 Diazepam 10 Mg/2 Ml Cartridge IM 05/09/25 08:35 5 mg STAT STA Administration Medical Decision Making Medical Decision Making MDM Narrative: 8:20 AM 05/09/2025 (Dr. Gianluca Franz): I spoke to patient's daughter as patient is a limited historian seems like she has been decompensating for the past few days sounds like she was doing well until she got on the plane and sounds like she may have decompensated since, other considerations for workup as below, after medical clearance anticipate crisis involvement, did not feel further imaging such as CT abdomen is indicated as her abdominal exam is benign. 08:35 some point we will repeat her ECG but her QTC is 524 I would avoid any QT prolonging medications, and she is on psych meds that can prolonged QT, we will give Valium IM to help with her putting fingers down her throat to retch 12:35 PM 05/09/2025 (Dr. Gianluca Franz): Cleared by crisis, family updated they feel comfortable with the discharge plan Differential Diagnosis Differential Diagnoses: The differential diagnosis associated with the presentation includes (Schizophrenia, UTI, dehydration, substance use disorder, pancreatitis) Admission/Observation Consideration of admission/observation: Escalation of care including admission/observation considered Lab Data MDM Lab Attestation statement: I reviewed the patient's lab results. 05/09/25 08:24 05/09/25 08:24 Labs: Lab Results 05/09/25 05/09/25 Range/Units 08:24 09:37 WBC 8.8 (4.8-10.8) X10*3/uL RBC 4.85 (4.20-5.50) X10*6/uL Hgb 12.2 (12.0-16.0) g/dl Hct 36.0 L (37.0-47.0) % MCV 74.2 L (80.0-98.0) fL MCH 25.2 L (27.0-33.0) pg MCHC 33.9 (31.0-35.0) g/dl RDW 13.8 (11.0-16.0) % Plt Count 289 D (160-400) X10*3/uL MPV 11.1 (9.4-12.3) fL Immature Gran % (Auto) 0.3 (0.0-0.4) % Neut % (Auto) 77.8 H (45-73) % Lymph % (Auto) 17.8 L (20-40) % Sandoval % (Auto) 4.0 (2-11) % Eos % (Auto) 0.0 (0-4) % Baso % (Auto) 0.1 (0-2) % Lymph # (Auto) 1.6 (1.2-4.9) X10*3/uL Sandoval # (Auto) 0.4 (0.1-1.2) X10*3/uL Eos # (Auto) 0.0 (0.0-0.4) X10*3/uL Baso # (Auto) 0.0 (0.0-0.2) X10*3/uL Abs Immat Gran (auto) 0.03 (0.00-0.03) X10*3/uL Absolute Neuts (auto) 6.8 (2.0-8.3) x10*3/uL Absolute Nucleated RBC 0.000 (0.0-0.012) X10*3/uL Nucleated RBC % (auto) 0.0 (0.0-0.2) /100WBC Sodium 145 (135-145) mmol/L Potassium 3.3 (3.3-5.1) mmol/L Chloride 110 H (96-108) mmol/L Carbon Dioxide 18 L (22-29) mmol/L Anion Gap 20 (12-20) BUN 11 (9-16) mg/dL Creatinine 0.96 (0.5-1.4) mg/dL Estim Creat Clear Calc 45.0 Estimated GFR 58 Random Glucose 226 H (60-115) mg/dL Calcium 9.1 D (8.4-10.2) mg/dL Total Bilirubin 0.8 (0.0-1.0) mg/dL AST 31 (5-31) U/L ALT 23 (0-31) U/L Alkaline Phosphatase 123 H (39-117) U/L Total Protein 7.0 (6.5-8.0) g/dL Albumin 4.6 (3.5-5.0) g/dL Lipase 12 (8-78) U/L Urine Color Yellow Urine Appearance Clear Urine pH 7.0 (5.0-9.0) Ur Specific Bryan 1.015 (1.005-1.025) Urine Protein Trace (Neg-Trace) mg/dL Urine Glucose (UA) 100 H (Negative) mg/dL Urine Ketones >=160 (Negative) mg/dL Urine Blood Negative (Negative) Urine Nitrite Negative (Negative) Ur Leukocyte Esterase Trace H (Negative) Urine RBC 0-2 (0-2) /HPF Urine WBC 0-5 (0-5) /HPF Ur Squamous Epith Cells 0-2 (0-2) /HPF Urine Bacteria None Seen (None Seen) Hyaline Casts 0-2 (0-2) /LPF Salicylates < 5.0 L (15-30) mg/dL Urine Opiates Screen Not Detected (Not Detect) Ur Buprenorphine Scrn Not Detected (Not Detect) ng/mL Ur Oxycodone Screen Not Detected (Not Detect) ng/mL Urine Methadone Screen Not Detected (Not Detect) ng/mL Urine Fentanyl Screen Not Detected (Not Detect) Acetaminophen < 3 (<30) mcg/mL Ur Barbiturates Screen Not Detected (Not Detect) Ur Phencyclidine Scrn Not Detected (Not Detect) Ur Amphetamines Screen Not Detected (Not Detect) U Benzodiazepines Scrn POSITIVE H (Not Detect) Urine Cocaine Screen Not Detected (Not Detect) U Marijuana (THC) Screen Not Detected (Not Detect) Ethyl Alcohol < 10 mg/dL Independent Interpretation I performed an independent interpretation of an: EKG (84 beats per minute, QTC 524 we will hold off QT prolonging medications) Independent Historian Clinical information obtained from an independent historian. History obtained from or confirmed by: EMS and Other (Daughter) Critical Care Time Critical Care Time Critical Care Time: Yes Total Critical Care Time: 35 Attestation: Time is exclusive of separately billable procedures. Time includes: direct patient care, patient reassessment, coordination of patient care, interpretation of data (laboratory data, pulse oximetry, arterial blood gases and chest xrays), review of patient's medical records, medical consultation and documentation of patient care. Procedures excluded from critical care time: central intravenous line placement and electrocardiography. Discharge Plan Discharge Clinical Impression: Schizophrenia, Anxiety disorder Patient Disposition: Home, Self-Care Additional Instructions: You were seen in our Emergency Department today for treatment of a behavioral health issue. It is important after your visit that you follow up with either your behavioral health provider or a primary care doctor within 7 days.? If you have trouble finding a therapist you can reach out to [address] [phone] The National Suicide and Crisis Lifeline can be reached 7 days a week 24 hours a day.? Call 988 to speak with someone.? Return for any worsening symptoms or concerns such as thoughts of self harm or harm to others. Please call 911 if you feel your mental health is worsening.? Prescriptions: No Action Linzess 290 mcg capsule 290 mcg PO DAILY Qty: 30 1RF famotidine 40 mg tablet 40 mg PO BEDTIME Qty: 90 0RF polyethylene glycol 3350 17 gram/dose powder 17 g PO DAILY Qty: 238 0RF Creon 24,000-76,000 -120,000 unit capsule,delayed release(DR/EC) 1 cap PO QID Qty: 100 1RF brimonidine-timolol [Combigan] 0.2-0.5 % drops 1 drp ophthalmic-Right BID Trulicity 0.75 mg/0.5 mL pen injector 0.75 mg SUBCUT QWEEK prazosin 2 mg Capsule 6 mg PO BEDTIME Qty: 90 0RF latanoprost 0.005 % drops 1 drp ophthalmic (eye) BID metformin 500 mg tablet 500 mg PO BID sennosides [senna] 8.6 mg tablet 17.2 mg PO BEDTIME Qty: 60 6RF zolpidem 10 mg tablet 10 mg PO BEDTIME PRN (Reason: Insomnia) alprazolam 1 mg tablet 1 mg PO QID PRN (Reason: Anxiety) venlafaxine 75 mg capsule,extended release 24hr 150 mg PO DAILY methylphenidate HCl 20 mg tablet extended release 20 mg PO BID quetiapine 400 mg tablet extended release 24 hr 400 mg PO BEDTIME hydroxyzine pamoate 50 mg capsule 50 mg PO BID PRN (Reason: Anxiety) metoclopramide HCl [Reglan] 10 mg tablet 10 mg PO QIDACHS Qty: 120 12RF prucalopride 2 mg tablet 2 mg PO DAILY Qty: 30 6RF dicyclomine 10 mg capsule 10 mg PO QID Qty: 120 6RF bisacodyl 5 mg tablet,delayed release (DR/EC) 10 mg PO BEDTIME Qty: 60 6RF rabeprazole 20 mg tablet,delayed release (DR/EC) 20 mg PO BID Qty: 60 6RF simethicone 180 mg capsule 180 mg PO QID Qty: 120 6RF misoprostol 200 mcg tablet 200 mcg PO BID Qty: 60 6RF Stand Alone Forms: Work/School Release Print Language: Hungarian
--- NOTE | 2025-05-09 08:09 | ECG_ITS ---
Test Reason : WEAKNESS Blood Pressure : */* mmHG Vent. Rate : 84 BPM Atrial Rate : 84 BPM P-R Int : 186 ms QRS Dur : 80 ms QT Int : 444 ms P-R-T Axes : 42 97 95 degrees QTcB Int : 524 ms Sinus rhythm with occasional Premature ventricular complexes Rightward axis Nonspecific T wave abnormality Abnormal ECG When compared with ECG of 21-Apr-2024 08:32, Premature ventricular complexes are now Present Nonspecific T wave abnormality, improved in Lateral leads QT has lengthened Referred By: Gianluca Franz Electronically Signed By: JESSICA MCPHERSON
[2025-05-09 08:27] LABS: MANUAL DIFF FLAG NO
[2025-05-09 08:33] LABS: Hematocrit 36.0 % (37.0-47.0); Hemoglobin 12.2 g/dl (12.0-16.0); Imm Gran Abs Auto 0.03 X10*3/uL (0.00-0.03); Imm Gran Pct Auto 0.3 % (0.0-0.4); Lymphocytes Absolute Auto 1.6 X10*3/uL (1.2-4.9); Mean Corpuscular HGB Conc 33.9 g/dl (31.0-35.0); Mean Corpuscular Hemoglobin 25.2 pg (27.0-33.0); Mean Corpuscular Volume 74.2 fL (80.0-98.0); NRBC Abs Auto 0.000 X10*3/uL (0.0-0.012); NRBC Pct Auto 0.0 /100WBC (0.0-0.2); Platelet Count 289 X10*3/uL (160-400); Red Blood Count 4.85 X10*6/uL (4.20-5.50); White Blood Count 8.8 X10*3/uL (4.8-10.8)
[2025-05-09 08:46] LABS: Acetaminophen LAB < 3 mcg/mL (<30); Alanine Aminotransferase 23 U/L (0-31); Albumin Level 4.6 g/dL (3.5-5.0); Alkaline Phosphatase 123 U/L (39-117); Anion Gap 20 (12-20); Aspartate Amino Transferase 31 U/L (5-31); Blood Urea Nitrogen 11 mg/dL (9-16); Calcium 9.1 mg/dL (8.4-10.2); Carbon Dioxide 18 mmol/L (22-29); Chloride 110 mmol/L (96-108); Creatinine Clr Calc Pharmacy 45.0; Estimated Glomerular Filt Rate 58; Lipase 12 U/L (8-78); Potassium 3.3 mmol/L (3.3-5.1); Salicylate < 5.0 mg/dL (15-30); Sodium 145 mmol/L (135-145); Total Protein 7.0 g/dL (6.5-8.0)
[2025-05-09] MEDS: diazePAM 10 MG/2 ML CARTRIDGE 5 MG IM (08:48)
--- OUTSIDE RECORDS SUMMARY | 2025-05-09 08:57 | XMS_ITS | Clinical Summary ---
Author Organization [employer] Address [address] [place] [address] 7[address] [place] [address] Care Team Providers Care Electrical Maintenance Engineer Name Role Phone Name, Ham HERRING Primary Care Provider [phone] Marya Echavarria PharmD Unavailable [phone] Allergies Active Allergy Reactions Criticality Noted Date Comments Empagliflozin Low 09/11/2020 UTI Medications * This document contains information received from the source organization and may not represent a complete record from that organization. ALPRAZolam (Xanax) 1 MG tablet Take 1 mg by mouth if needed in the morning and at bedtime for anxiety. 3 Active dicyclomine (Bentyl) 10 MG capsule 3 Active Linzess 290 MCG capsule 3 Active venlafaxine XR (Effexor XR) 150 MG 24 hr capsule Take 150 mg by mouth in the morning. 2 Active Simethicone Ultra Strength 180 MG capsule TAKE 1 CAPSULE BY MOUTH FOUR TIMES DAILY AFTER MEALS 2 Active prazosin (Minipress) 2 MG capsule TAKE 3 CAPSULES BY MOUTH AT BEDTIME 2 Active Creon 86322-04319 units capsule Take 1 capsule by mouth 4 times daily. 2 Active Gentle Laxative 5 MG EC tablet Take 2 tablets by mouth at bedtime. 4 Active RABEprazole (Aciphex) 20 MG EC tablet Take 1 tablet by mouth 2 times daily. 4 Active Motegrity 2 MG tablet Take 1 tablet by mouth 1 (one) time each day. Active latanoprost (Xalatan) 0.005 % ophthalmic solution Administer 1 drop into both eyes at bedtime. 4 Active zolpidem (Ambien) 10 MG tablet Take 10 mg by mouth at bedtime. 5 Active venlafaxine XR (Effexor XR) 75 MG 24 hr capsule TAKE 1 CAPSULE BY MOUTH DAILY ALONG WITH 150 MG CAPSULE FOR TOTAL OF 225MG DAILY 5 Active QUEtiapine XR (SEROquel XR) 400 MG 24 hr tablet Take 800 mg by mouth at bedtime. 5 Active QUEtiapine (SEROquel) 50 MG tablet Take 1 tablet by mouth Once per day. 5 Active methylphenidat e ER (Metadate ER) 20 MG CR tablet Take 1 tablet by mouth 2 times daily. 5 Active methylphenidat e (Ritalin) 10 MG tablet Take 10 mg by mouth in the morning. 5 Active hydrOXYzine pamoate (Vistaril) 50 MG capsule TAKE 1 TO 2 CAPSULES BY MOUTH AT BEDTIME NEEDED FOR SLEEP 5 Active famotidine (Pepcid) 40 MG tablet Take 40 mg by mouth at bedtime. 5 Active cloNIDine (Catapres) 0.1 MG tablet Take 1 tablet by mouth every 6 (six) hours. 5 Active Combigan 0.2-0.5 % ophthalmic solution instill 1 drop in both eyes twice daily 5 Active Acetaminophen Extra Strength 500 MG tablet Take 2 tablets by mouth every 6 (six) hours if needed for pain. 5 Active Tirzepatide (Mounjaro) 5 MG/0.5ML solution auto-injectorI ndications:Typ e 2 diabetes mellitus without complication, without long-term current use of insulin (HCC) Inject 5 mg under the skin 1 (one) time per week. Do not start before February 07, 2025. 2 mL 11 5 Active Blood Glucose Monitoring Suppl ([employer] Precision Issac System) w/Device kitIndications :Type 2 diabetes mellitus without complication, without long-term current use of insulin (HCC) 1 each Once per day. 1 kit 5 Active ondansetron (Zofran) 4 MG tablet Take 1 tablet (4 mg) by mouth every 8 (eight) hours if needed for nausea or vomiting. 60 tablet 1 5 Active glucose 4 g chewable tabletIndicati ons:Type 2 diabetes mellitus without complication, without long-term current use of insulin ([facility]),Hypoglyc emia Chew 4 tablets (16 g) if needed for low blood sugar. <70 mg/dL. Repeat treatment as needed. 40 tablet 5 5 01/12/20 26 Active glucose blood (FreeStyle Precision Issac Test) test stripIndicatio ns:Type 2 diabetes mellitus without complication, without long-term current use of insulin ([facility]) Use to test blood sugar up once daily, as directed 50 each 11 5 Active FreeStyle lancetsIndicat ions:Type 2 diabetes mellitus without complication, without long-term current use of insulin ([facility]) 1 each by Other route Once per day. Use to check BG once daily as directed 100 each 3 5 01/12/20 26 Active Premarin 0.625 MG/GM cream INSERT 1G INTO THE VAGINA DAILY FOR 2 WEEKS AND THEN 1 GIVE TWICE A WEEK 30 g 2 5 Active polyethylene glycol, PEG, 3350 (Glycolax) 17 GM/SCOOP powder MIX AND DRINK 17G BY MOUTH EVERY DAY 5 Active Ibsrela 50 MG tablet TAKE 1 TABLET BY MOUTH TWICE DAILY BEFORE BREAKFAST AND DINNER 5 Active metFORMIN XR (Glucophage-XR ) 500 MG 24 hr tabletIndicati ons:Type 2 diabetes mellitus without complication, without long-term current use of insulin ([facility]) Take 1 tablet (500 mg) by mouth with evening meal. Do not crush, chew, or split. 90 tablet 1 5 Active naproxen (Naprosyn) 500 MG tabletIndicati ons:Recurrent UTI TAKE 1 TABLET(500 MG) BY MOUTH TWICE DAILY FOR 20 DAYS 40 tablet 4 04/17/20 25 Discontinu ed(Therapy completed) clotrimazole-b etamethasone (Lotrisone) cream Apply topically 2 times daily for 28 days. 45 g 2 5 04/30/20 25 Active Problems Problem Noted Date Diagnosed Date Intertrigo 10/20/2024 Assessment & Plan (10/20/2024 12:14 PM EDT): I advised to maintain area dry and clean I will prescribe for patient clotrimazole with betamethasone to apply twice a day for no more than 2 weeks Type 2 diabetes mellitus 08/31/2022 Assessment & Plan (10/20/2024 12:14 PM EDT): Counseling about diabetic diet done today I will start patient on Trulicity 0.75 mg weekly I instructed to follow-up with PCP History of cholecystectomy 10/25/2017 Knee pain 03/01/2017 Chronic low back pain 10/23/2016 Irritable bowel syndrome 10/23/2016 Steatosis of liver 10/23/2016 Kidney stone 12/14/2014 Esophagogastric ulcer 03/11/2012 Constipation 01/15/2012 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 Resolved Problems Problem Noted Date Diagnosed Date Resolved Date Preop examination 10/20/2024 04/02/2025 Assessment & Plan (10/20/2024 12:15 PM EDT): [...] procedure with a small sip of water Hypokalemia 10/06/2024 04/02/2025 Hypomagnesemia 10/06/2024 04/02/2025 Blood in urine 03/14/2018 04/02/2025 Renal colic 03/14/2018 04/02/2025 Left upper quadrant pain 10/25/2017 LFT elevation 09/30/2016 04/02/2025 Pericardial effusion 03/30/2016 025 Encounters Date Type Department Care Team Description 04/17/2025 Telephone [facility] [address] [place] [address] Name, MD Ham Appointment Request 04/13/2025 Telephone [facility] [address] [place] [address] Ham Hay MD Med Refill 04/06/2025 Results Follow-Up [facility] [place] [address] Ham Hay MD Comprehensive Metabolic Panel, Lipid Panel with Reflex to Direct LDL 04/02/2025 10:00 AM EDT Office Visit [facility] [place] [address] Ham Hay MD Type 2 diabetes mellitus without complication, without long-term current use of insulin ([facility]) (Primary Dx) 04/02/2025 Orders Only [facility] [place] [address] Ham Hay MD 04/02/2025 Travel 03/29/2025 Refill [facility] [place] [address] Ham Hay MD 03/21/2025 Telephone [facility] [place] [address] Marya Echavarria, PharmD 03/13/2025 Telephone [facility] [place] [address] Ham Hay MD Med Refill 02/22/2025 Telephone [facility] [place] [address] Ham Hay MD Medication Question 02/20/2025 Travel from Last 3 Months Immunizations Immunization Administration Dates Next Due Influenza High-dose Quadriva lent Preservative Free 06/30/2023,05/13/2022 Influenza injectable quadriv alent IIV4 with preservative 05/17/2019,04/27/2017,05/04/2016,05/07 Influenza injectable quadriv alent preservative free 07/02/2021,05/01/2020,10/24/2018 Influenza, IIV3, injectable 05/30/2014, 8 Influenza, Split (incl. alfredo fied surface antigen) 05/09/2013,05/25/2012 Influenza, seasonal, injecta ble, preservative free 04/21/2024 Pneumococcal Conjugate PCV 20 06/30/2023 Pneumococcal Polysaccharide PPSV23 10/24/2018 Td (adult), unspecified 07/07/2001 Tdap 02/11/2024,10/07/2011 Social History Tobacco Use Types Packs/Day Years Used Date Smoking Tobacco: Never Passive Smoke Exposure: Never Smokeless Tobacco: Never Tobacco Cessation:Counseling Given: Not Answered Alcohol Use Standard Drinks/Week Comments Never 0 (1 standard drink = 0.6 oz pur e alcohol) Depression Answer Date Recorded Patient Health Questionnaire-9 Score 5 04/02/2025 Patient Health Questionnaire-9 Score 5 04/02/2025 Last PHQ-9: Questionnaire Data Not on file 0 04/02/2025 Housing Stability Answer Date Recorded What is [...] Answer Date Recorded Patient Health Questionnaire-2 Score 0 04/02/2025 Internet Access Answer Date Recorded Internet Access [...] Sign Reading Time Taken Comments Blood Pressure 116/68 04/02/2025 9:52 AM EDT Pulse 99 04/02/2025 9:52 AM EDT Temperature 35.9 C (96.6 F) 04/02/2025 9:52 AM EDT Respiratory Rate 12 04/02/2025 9:52 AM EDT Oxygen Saturation 97% 04/02/2025 9:52 AM EDT Inhaled Oxygen Concentration - - Weight 62 kg (136 lb 9.6 oz) 04/02/2025 9:52 AM EDT Height 157.5 cm (5' 2 ) 04/02/2025 9:52 AM EDT Body Mass Index 24.98 04/02/2025 9:52 AM EDT Plan of Treatment Upcoming Encounters Date Type Department Care Team (Late st Contact Info) Description 05/16/2025 10:30 AM EDT Medication Management [facility] [address] [place] [address] Marya Echavarria, PharmD [address] [place] [address] 06/26/2025 1:00 PM EST Office Visit [facility] [address] [place] [address] Sabrina Wilson, OD [address] [place] [address] 06/27/2025 11:15 AM EST Office Visit [facility] [address] [place] [address] Name, MD Ham [address] [place] [address] Health Maintenance Due Date Last Done Comments [...] - Risk 60-74 years 1-dose series) 2017 Diabetes: Urine Protein Screening 01/17/2025 01/18/2024, 01/19/2023, 11/11/2022 COVID-19 Vaccine ( season) 2025 06/03/2022, 07/02/2021, 10/22/2020, Additional history exists Influenza Vaccine (#1) 2025 , 06/30/2023, 05/13/2022, Additional history exists Mammogram 05/29/2025 05/29/2024, 05/10, 05/28/2023, Additional history exists Diabetes: Hemoglobin A1C 10/03/2025 025, 01/11/2025, 10/20/2024, Additional history exists SDOH Screening 10/20/2025 10/20/2024 Alcohol/Substance Use Screening 04/02/2026 04/02/2025 Depression Screening 04/02/2026 04/02/2025, 08/31/19 Diabetes: Foot Exam 04/02/2026 04/02/2025, 04/02/2025, 04/02/2025, Additional history exists Lipid Panel 04/02/2026 04/02/2025, 01/07, 01/19/2023, Additional history exists Tobacco Screening 04/02/2026 04/02/2025 Colonoscopy 05/09/2026 05/09/2019 Colorectal Cancer Screening 05/09/2026 DTaP/Tdap/Td Vaccines (3 - Td or Tdap) 02/10/2034 02/11/2024, 10/07/2011, 07/07/2001 Pneumococcal Vaccine: 50+ Years Completed 06/30/2023, 10/24/2018 HIB Vaccines Aged Out No longer eligi ble based on patient's age to complete this topic HPV Vaccines Aged Out No longer eligi ble based on patient's age to complete this topic IPV Vaccines Aged Out No longer eligi ble based on patient's age to complete this topic Meningococcal B Vaccine Aged Out No l onger eligible based on patient's age to complete [...] Procedure Name Priority Date/Time Associated Diagnosis Comments LIPID PANEL WITH REFLEX TO DIRECT LDL Routine 04/02/2025 10:15 AM EDT COMPREHENSIVE METABOLIC PANEL Routine 04/02/2025 10:15 AM EDT MAGNESIUM Routine 04/02/2025 10:15 AM EDT Hypomagnesemia HEMOGLOBIN A1C Routine 04/02/2025 10:15 AM EDT Hypokalemia Hypomagnesemia POCT GLUCOSE Routine 04/02/2025 9:54 AM EDT Type 2 diabetes mellitus without complication, without long-term current use of insulin ([facility]) BI MAMMOGRAM SCREENING TOMOSYNTHESIS BILATERAL Routine 05/29/2024 11:38 AM EDT ALBUMIN, RANDOM URINE W/CREATININE Routine 01/18/2024 8:56 AM EDT Type 2 diabetes mellitus without complication, without long-term current use of insulin ([facility]) HM COLONOSCOPY Routine 05/09/2019 from Last 3 Months or Most Recently Relevant to Health Maintenance Results * Lipid Panel with Reflex to Direct LDL (04/02/2025 10:15 AM EDT) Triglycerides 145 <150 mg/dL [facility] Comment:Desirable Triglyceri de: less than 150 mg/dLBorderline High Triglyceride 150-199 mg/dLHigh Triglyceride: 200-499 mg/dLVery High Triglyceride: greater than or equal to 5OO mg/dL Cholesterol 167 <200 mg/dL [facility] Comment:Desirable Cholestero l: less than 200 mg/dLBorderline High Cholesterol: 200-239 mg/dLHigh Cholesterol: greater than 239 mg/dL LDL Cholesterol Calculated 81 <100 mg/dL [facility] Comment:Desirable LDL: less than 100 mg/dLNear Optimal/Above Optimal LDL: 110- 129 mg/dLBorderline High LDL: 130-159 mg/dLHigh LDL: 160-189 mg/dLVery High LDL: greater than or equal to 190 mg/dL HDL Cholesterol 57 >40 mg/dL [facility] Comment:Desirable HDL: great er than 40 mg/dL Note: This HDL assay may give artificially low results in patients with liver disease. 04/02/2025 10:1 5 AM EDT 04/02/2025 11:25 AM EDT Ham Hay MD LAB BLOOD ORDERABLES Final Resul t Performing Organization Address City/[facility] Co de Phone Number [facility] [address] [place] [phone] * Magnesium (04/02/2025 10:15 AM EDT) Magnesium 2.3 1.6 - 2.6 mg/dL [facility] Blood Venous blood specimen / Unknown 04/02/2025 10:15 AM EDT 04/02/2025 11:28 AM EDT Perfecto Pat MD LAB BLOOD ORDERABLES Final Resul t Performing Organization Address [facility] Co de Phone Number [facility] [address] [place] [phone] * (ABNORMAL) Hemoglobin A1c (04/02/2025 10:15 AM EDT) Hemoglobin A1c 6.4(H) <6.0 % [facility] Comment:Hemoglobin A1C Refer ence Range Adults: 4.8 - 6.0 % Non diabetic: < 6.0 % Goal: < 7.0 %Additional Action Suggested: > 8.0 %Note: Hemoglobin A1c results are invalid for patients with abnormal amounts of HbF. Blood transfusions may impact the HbA1c concentration in the patient sample. Estimated Average Glucose 137 mg/dL [facility] Comment:eAG = Estimated ave rage glucose which is %A1C expressed asaverage glucose, using the formula of the N4V-VvnjafeKzvfikq Glucose study (ADAG), Diabetes Care, Vol.31,#8,2007 Blood Venous blood specimen / Unknown 04/02/2025 10:15 AM EDT 04/02/2025 11:28 AM EDT Perfecto Pat MD LAB BLOOD ORDERABLES Final Resul t [facility] [address] [place] [phone] * (ABNORMAL) Comprehensive Metabolic Panel (04/02/2025 10:15 AM EDT) Sodium 141 135 - 145 mmol/L [facility] Potassium 4.1 3.3 - 5.1 mmol/L [facility] Chloride 102 96 - 108 mmol/L [facility] Carbon Dioxide 30(H) 22 - 29 mmol/L [facility] Anion Gap 13 12 - 20 [facility] Urea Nitrogen (BUN) 15 9 - 16 mg/dL [facility] Creatinine, Serum 1.19 0.5 - 1.4 mg/dL [facility] Estimated Glomerular Filt Rate 45 [facility] Comment:Chronic Kidney Disea se: Estimated GFR < 60 mL/min/1.68m5Kvkwol Kidney Disease: Estimated GFR < 15 mL/min/1.73m2 Glucose 163(H) 60 - 115 mg/dL [facility] Calcium 9.7 8.4 - 10.2 mg/dL [facility] Bilirubin, Total 0.3 0.0 - 1.0 mg/dL [facility] Aspartate Amino Transferase 21 5 - 31 U/L [facility] Alanine Aminotransferase 23 0 - 31 U/L [facility] Total Protein 6.7 6.5 - 8.0 g/dL [facility] Albumin Level 4.3 3.5 - 5.0 g/dL [facility] Alkaline Phosphatase 115 39 - 117 U/L [facility] 04/02/2025 10:1 5 AM EDT 04/02/2025 11:28 AM EDT us Ham Name MD LAB BLOOD ORDERABLES Final Resul t [facility] [address] [place] [phone] * POCT Glucose (04/02/2025 9:54 AM EDT) Glucose Blood, POC 174 60 - 200 mg/dL QC Media Lot # [id number] Lot# Expiration Date Blood Capillary blood specimen / Unknown 04/02/2025 9:54 AM EDT Ham Hay MD POINT OF CARE TEST ENTER/EDIT OR DERABLES Final Result * BI Mammogram Screening Tomosynthesis Bilateral (05/29/2024 11:38 AM EDT) Anatomical Region Laterality Modality Breast Bilateral Mammography 05/29/2024 11:3 8 AM EDT Narrative 06/09/2024 10:51 AM EDT [address] [place] [address] Mammography Report Signed Patient: Makenna Ortiz MR#: [id number] : 1955 Acct:[id number] Age/Sex: 69 / F ADM Date: 05/29/24 Loc: HO.MAMMO Attending Dr: Ham Hay MD Ordering Physician: Ham Hay MD Results: 1Negative Date of Service: 05/29/24 Follow Up: 1 Year From Orig ina Mammogram Procedure(s): MM tomosynthesis screening BI Accession Number(s): [id number] cc: Ham Hay MD EXAMINATION: MM SCREENING [...] 06/09/24 1048 DD/ 1138 TD/TT: 05/29/24 1153 Government Operations Consultant: Procedure Note Donotuseinterpreter, Image - 06/09/2024 [facility] [address] [place], [place] [address] Mammography Report Signed Patient: Makenna OrtizMR#: [id number] : 1955cct:[id number] Age/Sex: 69 / FADM Date: 05/29/24 Loc: HO.MAMMO Attending Dr: Ham Hay MD Ordering Physician: Ham Hay MDResults: 1Negative Date of Service: 05/29/24Follow Up: 1 Year From Orig ina Mammogram Procedure(s): MM tomosynthesis screening BI Accession Number(s): [id number] cc: Ham Hay MD EXAMINATION: MM SCREENING [...] 06/09/24 1048 DD/ 1138 TD/TT: 05/29/24 1153 Government Operations Consultant: Ham Name IMG BI PROCEDURES Edited Result - Final * Albumin, Random Urine W/Creatinine (01/18/2024 8:56 AM EDT) Creatinine, Urine 239.15 mg/dL [facility] Microalbumin Urine 18.0 mg/L [facility] Microalbum Creatinine Ratio Ur 7.5 <30 ug/mg cr [facility] Comment:Albumin/Creatinine R atio Reference Ranges: Normal: < 30 ug/mg creatinine Microalbuminuria: 30 - 300 ug/mg creatinineClinical Albuminuria: > 300 ug/mg creatinine Urine (Urine, Random) 01/18/2024 8:56 AM EDT 01/18/2024 11:08 AM EDT Ham Hay MD LAB URINE ORDERABLES Final Resul t [facility] [address] [place] [phone] * (ABNORMAL) Colonoscopy (05/09/2019) Colonoscopy Abnormal(A ) Normal [facility] External Provider HEALTH MAINTENANCE Final Result from Last 3 Months or Most Recently Relevant to Health Maintenance Insurance [employer] (HMO D-SNP) [place] [id number] Care Teams Electrical Maintenance Engineer Relationship Specialty Start Date End Date Name, MD Ham [address] [place] [address] PCP - General Family Medicine 01/28/16 Marya Echavarria PharmD [address] [place] [address] Pharmacist Internal Medicine 01/11/25
--- OUTSIDE RECORDS SUMMARY | 2025-05-09 08:57 | XMS_ITS | Patient Health Record ---
Author Organization [facility] Address [address] [place] [address] Care Team Providers Care Senior Loan Processor Name Role Phone Dragan Tejeda Jr Reason For Referral No Information Plan Of Treatment No Information
--- OUTSIDE RECORDS SUMMARY | 2025-05-09 08:57 | XMS_ITS | Encounter Summary ---
Author Organization [employer] Address [address] [place] [address] [address] [place] [address] Care Team Providers Care Knowledge Management Consultant Name Role Phone Name, Ham HERRING Primary Care Provider [phone] Marya Echavarria PharmD Unavailable [phone] Reason for Visit * Reason Onset Date Comments FYI 04/21/2024 Encounter Details Date Type Department Care Team ([facility] st Contact Info) Description 04/21/2024 Telephone [facility] [address] [place] [address] Name, MD Ham [address] [place] [address] FYI Social History Tobacco Use Types Packs/Day Years [...] - 04/21/2024 3:49 PM EDT Tc from [facility] calling to inform pcp pt has been admitted into hospital. If any questions you can contact [facility] at [phone]. documented in this encounter Plan of Treatment Upcoming Encounters Date Type Department Care Team (Late st Contact Info) Description 05/16/2025 10:30 AM EDT Medication Management [facility] [address] [place] [phone] Marya Echavarria, PharmD [address] [place] [address] 06/26/2025 1:00 PM EST Office Visit [facility] [address] [place] [address] Sabrina Wilson, OD [address] [place] [phone] 06/27/2025 11:15 AM EST Office Visit [facility] [address] [place] [phone] Name, MD Ham [address] [place] [address] documented as of this encounter Visit Diagnoses Not on filedocumented in this encounter Additional Health Concerns Assessment Noted Time PHQ-9 Depression Total Score: 11 10/31/ 024 3:36 PM EDT documented as of this encounter Care Teams Knowledge Management Consultant Relationship Specialty Start Date End Date Name, MD Ham [address] [place] [address] PCP - General Family Medicine 01/28/16 Marya Echavarria PharmD [address] [place] [address] Pharmacist Internal Medicine 01/11/25 documented as of this encounter
--- OUTSIDE RECORDS SUMMARY | 2025-05-09 08:57 | XMS_ITS | Encounter Summary ---
Author Organization [employer] Address [address] [place] [address] [address] [place] [address] Care Team Providers Care Radio Installer Automobile Name Role Phone Name, Ham HERRING Primary Care Provider Marya Echavarria PharmD Unavailable [phone] Reason for Visit * Reason Comments Med Refill Encounter Details Date Type Department Care Team ([facility] st Contact Info) Description 05/30/2024 Refill [facility] [address] [place] [address] Name, MD Ham [address] [place] [address] Social History Tobacco Use Types Packs/Day Years [...] Description 05/16/2025 10:30 AM EDT Medication Management [facility] [address] [place] [phone] Marya Echavarria PharmD [address] [place] [phone] 06/26/2025 1:00 PM EST Office Visit [facility] [address] [place] [address] Sabrina Wilson, OD [address] [place] [address] 06/27/2025 11:15 AM EST Office Visit [facility] [address] [place] [phone] NameHam MD [address] [place] [phone] documented as of this encounter Visit Diagnoses Not on filedocumented in this encounter Additional Health Concerns Assessment Noted Time PHQ-9 Depression Total Score: 24 024 11:40 AM EDT documented as of this encounter Care Teams Radio Installer Automobile Relationship Specialty Start Date End Date Ham Hay MD [address] [place] [phone] PCP - General Family Medicine 01/28/16 Marya Echavarria, LaurieD [address] [place] [phone] Pharmacist Internal Medicine 01/11/25 documented as of this encounter
--- OUTSIDE RECORDS SUMMARY | 2025-05-09 08:57 | XMS_ITS | Encounter Summary ---
Author Organization [employer] Address 75 [facility] 7t [place] [address] Care Team Providers Care Consumer Insight Manager Name Role Phone Name, Ham HERRING Primary Care Provider [phone] Marya Echavarria PharmD Unavailable [phone] Reason for Visit * Reason Comments Med Refill Encounter Details Date Type Department Care Team ([facility] st Contact Info) Description 04/18/2024 Refill [facility] [address] [place], [place] [phone] Name, MD Ham [address] [place] [address] Acute herpes zoster neuropathy Social History Tobacco [...] Description 05/16/2025 10:30 AM EDT Medication Management [facility] [address] [place] [address] Marya Echavarria PharmD [address] [place] [address] 06/26/2025 1:00 PM EST Office Visit [facility] OPTOMETRY [address] [place] [address] Sabrina Wilson, OD [address] [place] [address] 06/27/2025 11:15 AM EST Office Visit [facility] [address] [place] [address] NameHam MD [address] [place] [address] documented as of this encounter Visit Diagnoses Diagnosis Acute herpes zoster neuropathy documented in this encounter Additional Health Concerns Assessment Noted Time PHQ-9 Depression Total Score: 11 024 3:36 PM EDT documented as of this encounter Care Teams Consumer Insight Manager Relationship Specialty Start Date End Date Ham Hay MD [address] [place] [address] PCP - General Family Medicine 01/28/16 Marya Echavarria, PharmD [address] [place] [address] Pharmacist Internal Medicine 01/11/25 documented as of this encounter
--- OUTSIDE RECORDS SUMMARY | 2025-05-09 08:58 | XMS_ITS | Encounter Summary ---
Author Organization [employer] Address [address] [place] [address] 7 [place] [address] Care Team Providers Care Filter Tank Tender Helper Head Name Role Phone Name, Ham HERRING Primary Care Provider [phone] Marya Echavarria PharmD Unavailable Reason for Visit * Reason Onset Date Comments Appointment Request 04/17/2025 Encounter Details Date Type Department Care Team ([facility] st Contact Info) Description 04/17/2025 Telephone [facility] [address] [place] [address] Name, MD Ham [address] [place] [address] Appointment Request Social History Tobacco Use Types Packs/Day Years Used Date Smoking Tobacco: Never Passive Smoke Exposure: Never Smokeless Tobacco: Never Alcohol Use Standard [...] encounter Miscellaneous Notes * Telephone Encounter - Fanny Bustamante - 04/17/2025 9:58 AM EDT Tc from pt requesting to reschedule CDTM apt Contact pt at [phone] (cambodian) documented in this encounter Plan of Treatment Upcoming Encounters Date Type Department Care Team ([facility] st Contact Info) Description 05/16/2025 10:30 AM EDT Medication Management [facility] [address] [place] [address] Marya Echavarria, PharmD [address] [place] [address] 06/26/2025 1:00 PM EST Office Visit [facility] OPTOMETRY [address] [place] [address] Sabrina Wilson OD [address] [place] [address] 06/27/2025 11:15 AM EST Office Visit [facility] [address] [place] [address] Name, MD Ham [address] [place] [address] documented as of this encounter Visit Diagnoses Not on filedocumented in this encounter Additional Health Concerns Assessment Noted Time PHQ-9 Depression Total Score: 5 04/02/20 25 9:52 AM EDT documented as of this encounter Care Teams Filter Tank Tender Helper Head Relationship Specialty Start Date End Date Name, MD Ham [address] [place] [address] PCP - General Family Medicine 01/28/16 Marya Echavarria PharmD [address] [place] [address] Pharmacist Internal Medicine 01/11/25 documented as of this encounter
--- OUTSIDE RECORDS SUMMARY | 2025-05-09 08:58 | XMS_ITS | Encounter Summary ---
Author Organization [employer] Address [address] [place] [address] 7t [place] [address] Care Team Providers Care Claim Specialist Name Role Phone Name, Ham HERRING Primary Care Provider [phone] Marya Echavarria PharmD Unavailable [phone] Reason for Visit * Reason Comments Med Refill Encounter Details Date Type Department Care Team ([facility] st Contact Info) Description 08/25/2024 Refill [facility] [address] [place] [address] Name, MD Ham [address] [place] [address] Recurrent UTI Social History Tobacco Use Types [...] Description 05/16/2025 10:30 AM EDT Medication Management [facility]INE [address] [place] [address] Marya Echavarria, PharmD [address] [place] [address] 06/26/2025 1:00 PM EST Office Visit [facility] OPTOMETRY [address] [place] [address] Sabrina Wilson, OD [address] [place] [address] 06/27/2025 11:15 AM EST Office Visit [facility]INE [address] [place] [address] NameHam MD [address] [place] [address] documented as of this encounter Visit Diagnoses Diagnosis Recurrent UTI Urinary tract infection, site not specified documented in this encounter Additional Health Concerns Assessment Noted Time PHQ-9 Depression Total Score: 24 024 11:40 AM EDT documented as of this encounter Care Teams Claim Specialist Relationship Specialty Start Date End Date Ham Hay MD [address] [place] [address] PCP - General Family Medicine 01/28/16 Marya Echavarria, PharmD [address] [place] [address] Pharmacist Internal Medicine 01/11/25 documented as of this encounter
--- OUTSIDE RECORDS SUMMARY | 2025-05-09 08:58 | XMS_ITS | Encounter Summary ---
Author Organization [employer] Address [address] [place] [address] 7t [place] [address] Care Team Providers Care Belt Loop Machine Operator Name Role Phone Name, Ham HERRING Primary Care Provider [phone] Marya Echavarria PharmD Unavailable [phone] Encounter Details Date Type Department Care Team (Late st Contact Info) Description 07/14/2022 Abstract [facility] MED[facility] [address] [place] [address] Provider, MD Meghan Social History Tobacco Use [...] Description 05/16/2025 10:30 AM EDT Medication Management [facility] [address] [place] [address] Marya Echavarria, PharmD 230 [place] [address] 06/26/2025 1:00 PM EST Office Visit [facility] OPTOMETRY [address] [place] [address] Sabrina Wilson, OD [address] [place] [address] 06/27/2025 11:15 AM EST Office Visit [facility] [address] [place] [address] Name, MD Ham [address] [place] [address] documented as of this encounter Visit Diagnoses Not on filedocumented in this encounter Care Teams Belt Loop Machine Operator Relationship Specialty Start Date End Date Name, MD Ham [address] [place] [address] PCP - General Family Medicine 01/28/16 Marya Echavarria, LaurieD [address] [place] [address] [phone] Pharmacist Internal Medicine 01/11/25 documented as of this encounter
--- OUTSIDE RECORDS SUMMARY | 2025-05-09 08:58 | XMS_ITS | Clinical Summary ---
Author Organization [facility] Address [address] [place] [address] Phone Care Team Providers Care Police Magistrate Name Role Phone Physician, No Pcp Primary Care Provider Unavaila ble Allergies No known active allergies Medications zolpidem tartrate (AMBIEN ORAL) Take 10 mg by mouth if needed (PRN). Per patient takes every night. Active simethicone (MYLICON,GAS-X) 180 mg capsule Take 1 capsule (180 mg total) by mouth 4 (four) times a day if needed (PRN). Active tamsulosin (FLOMAX) 0.4 mg 24 hr capsule Take 1 capsule (0.4 mg total) by mouth 1 (one) time each day. 10/11/2024 Active Mounjaro 5 mg/0.5 mL injection Inject 0.5 mL (5 mg total) under the skin every 7 (seven) days. Tuesdays02/07/2025 Active venlafaxine XR (EFFEXOR-XR) 150 mg 24 hr capsule Take 1 capsule (150 mg total) by mouth 1 (one) time each day. 06/23/2022 Active Encounters Date Type Department Care Team Description 05/08/2025 9:38 AM EDT - 05/08/2025 2:20 PM EDT Emergency [facility] Emergency [address] [place] [phone] Tee Campbell MD Weakness (Primary Dx); Hypokalemia Discharge Disposition: Home or Self Care from Last 3 Months Surgical History Surgery Date Site/Laterality Comments TUBAL LIGATION PROCEDURE: HISTORICAL TUBAL LIGATION CHOLECYSTECTOMY PROCEDURE: HISTORICAL CHOLECYSTECTOMY LITHOTRIPSY PROCEDURE: HISTORICAL LITHOTRIPSY; COMMENT: ? 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, with obstruction DX:Chronic gastric ulcer wit hout mention of hemorrhage or perforation, with obstruction Kidney disorder DX:Kidney disord er; COMMENT: stones Family History Medical History Relation Name Comments Breast cancer Neg Hx Colon cancer Neg Hx Ovarian cancer Neg Hx Social History Tobacco Use Types Packs/Day Years Used Date Smoking Tobacco: Never Alcohol Use Standard Drinks/Week Comments No 0 (1 standard drink = 0.6 oz pur e alcohol) Comments Unknown Sex and Gender Information Value Date Recorded Sex Assigned at Not on file Legal Sex Female 1:55 PM EST Gender Identity Not on file Sexual Orientation Not on file Obstetrics History Last Filed Vital Signs Vital Sign Reading Time Taken Comments Blood Pressure 135/82 05/08/2025 10:10 AM EDT Pulse 83 05/08/2025 10:10 AM EDT Temperature 36.8 C (98.2 F) 05/08/2025 10:10 AM EDT Respiratory Rate 15 05/08/2025 10:10 AM EDT Oxygen Saturation 100% 05/08/2025 10:10 AM EDT Inhaled Oxygen Concentration - - Weight - - Height - - Body Mass Index - - Plan of Treatment Health Maintenance Due Date Last Done Comments Breast Cancer Screening 1957 Colorectal Cancer Screening: Colonoscopy 1957 Diabetes: Annual Foot Exam 1967 Diabetes: Annual Retina Eye Exam 1967 Hepatitis A Vaccines (1 of 2 - Risk 2-dose series) 1976 Zoster Vaccines (1 of 2) 2007 Hepatitis B Vaccines (1 of 3 - Risk 3-dose series) 2017 RSV Immunization Adult Patients (1 - Risk 60-74 years 1-dose series) 2017 Depression Screening 08/09/2024 COVID-19 Vaccine ( season) 2025 Influenza Vaccine (#1) 2025 , 06/30/2023, 05/13/2022, Additional history exists Cholesterol Screening (Lipid Panel) 05/08/2025 Diabetes: Annual Urine Albumin-Creatinine Ratio (uACR) 05/08/2025 Hepatitis C Screening 05/08/2025 Medicare Annual Wellness Visit 05/08/2025 Osteoporosis Screening (Bone Density Screening) 05/08/2025 Social Influencers of Health Screening 05/08/2025 Diabetes: Blood Sugar Control Test (HGBA1C) 10/03/2025 04/02/2025 Diabetes: Annual GFR (Glomerular Filtration Rate) 05/08/2026 05/08/2025, 04/02/2025 Falls Risk Assessment 05/08/2026 05/08/2025 DTaP,Tdap,and Td Vaccines (4 - Td or Tdap) 02/10/2034 02/11/2024, 10/07/2011, 07/07/2001 Pneumococcal Vaccine: 50+ Years Completed 06/30/2023, 10/24/2018 HIB Vaccines Aged Out No longer eligi ble based on patient's age to complete this topic HPV Vaccines Aged Out No longer eligi ble based on patient's age to complete this topic IPV Vaccines Aged Out No longer eligi ble based on patient's age to complete this topic MMR Vaccines Aged Out No longer eligi ble based on patient's age to complete this topic Meningococcal ACWY Vaccine Aged Out N o longer eligible based on patient's age to complete this topic Meningococcal B Vaccine Aged Out No l onger eligible based on patient's age to complete this topic RSV Immunization Patients Under 20 months Aged Out No longer eligible based on patient's age to complete this topic Varicella Vaccines Aged Out No longer eligible based on patient's age to complete this topic Procedures Procedure Name Priority Date/Time Associated Diagnosis Comments ECG 12-LEAD STAT 05/08/2025 1:07 PM EDT CBC WITH AUTO DIFFERENTIAL STAT 05/08/2025 11:38 AM EDT TROPONIN I HIGH SENSITIVITY STAT 05/08/2025 11:38 AM EDT CBC AND DIFFERENTIAL STAT 05/08/2025 11:38 AM EDT PHOSPHORUS STAT 05/08/2025 11:38 AM EDT MAGNESIUM STAT 05/08/2025 11:38 AM EDT LACTATE, WITH REFLEX STAT 05/08/2025 11:38 AM EDT ETHANOL STAT 05/08/2025 11:38 AM EDT COMPREHENSIVE METABOLIC PANEL STAT 05/08/2025 11:38 AM EDT ECG 12-LEAD STAT 05/08/2025 10:43 AM EDT POCT GLUCOSE BLOOD Routine 05/08/2025 10 :21 AM EDT from Last 3 Months Results * Lactate, with Reflex (05/08/2025 11:38 AM EDT) Pathologist [facility] LACTIC ACID 2.0 0.5 - 2.2 mmol/L LAB BLOOD GAS METHOD 05/08/2025 11:58 AM EDT [facility] Blood Venous blood specimen / Unknown Venipuncture / Unknown 05/08/2025 11:38 AM EDT 05/08/2025 11:50 AM EDT Tee Campbell MD LAB BLOOD ORDERABLES Final Result [facility] [address] [place] [address], [place] [phone] * Troponin I High Sensitivity (05/08/2025 11:38 AM EDT) [facility] High Sensitivity Troponin I 4 0 - 14 ng/L LAB CHEMISTRY METHOD 05/08/2025 12:29 PM EDT [facility] Blood Venous blood specimen / Unknown Venipuncture / Unknown 05/08/2025 11:38 AM EDT 05/08/2025 11:50 AM EDT Narrative [facility] - 05/08/2025 12:29 PM EDT [...] method is an immunoenzymatic assay manufactured by [employer] and performed on the [employer] DxI 800. Tee Campbell MD LAB BLOOD ORDERABLES Final Result [facility] [address] [place] [address], [place] [phone] * (ABNORMAL) CBC auto differential (05/08/2025 11:38 AM EDT) [facility] WBC 6.4 4.0 - 10.5 K/mcL LAB HEMETOLOGY METHOD 05/08/2025 12:02 PM EDT [facility] RBC 4.58 4.20 - 5.40 M/mcL LAB HEMETOLOGY METHOD 05/08/2025 12:02 PM EDT [facility] Hemoglobin 11.7(L) 12.5 - 16.0 g/dL LAB HEMETOLOGY METHOD 05/08/2025 12:02 PM EDT [facility] Hematocrit 35.4(L) 37.0 - 47.0 % LAB HEMETOLOGY METHOD 05/08/2025 12:02 PM EDT [facility] MCV 77.3(L) 78.0 - 100.0 FL LAB HEMETOLOGY METHOD 05/08/2025 12:02 PM EDT [facility] MCH 25.6 25.0 - 33.0 pcg LAB HEMETOLOGY METHOD 05/08/2025 12:02 PM EDT [facility] MCHC 33.0 32.0 - 36.0 g/dL LAB HEMETOLOGY METHOD 05/08/2025 12:02 PM EDT [facility] RDW 13.4 12.1 - 16.2 % LAB HEMETOLOGY METHOD 05/08/2025 12:02 PM EDT [facility] Platelets 233 150 - 450 K/mcL LAB HEMETOLOGY METHOD 05/08/2025 12:02 PM EDT [facility] MPV 8.8 7.4 - 11.4 FL LAB HEMETOLOGY METHOD 05/08/2025 12:02 PM EDT [facility] Neutrophils Relative 69.8 44.0 - 74.0 % LAB HEMETOLOGY METHOD 05/08/2025 12:02 PM EDT [facility] Lymphocytes Relative 24.3 20.0 - 48.0 % LAB HEMETOLOGY METHOD 05/08/2025 [facility] Monocytes Relative 5.3 2.0 - 12.0 % LAB HEMETOLOGY METHOD 05/08/2025 12:[facility] Eosinophils Relative 0.4 0.0 - 6.0 % LAB HEMETOLOGY METHOD 05/08/2025 12:02 PM EDT [facility] Basophils Relative 0.2 0.0 - 2.0 % LAB HEMETOLOGY METHOD 05/08/2025 12:02 PM EDT [facility] Neutrophils Absolute 4.50 1.80 - 7.80 K/mcL LAB HEMETOLOGY METHOD 05/08/2025 12:02 PM EDT [facility] Lymphocytes Absolute 1.60 1.00 - 3.20 K/mcL LAB HEMETOLOGY METHOD 05/08/2025 12:02 PM EDT [facility] Monocytes Absolute 0.30 0.00 - 0.80 K/mcL LAB HEMETOLOGY METHOD 05/08/2025 12:02 PM EDT [facility] Eosinophils Absolute 0.00 0.00 - 0.50 K/mcL LAB HEMETOLOGY METHOD 05/08/2025 12:02 PM [facility] Basophils Absolute 0.00 0.00 - 0.20 K/mcL LAB HEMETOLOGY METHOD 05/08/2025 12:02 PM [facility] Blood Venous blood specimen / Unknown Venipuncture / Unknown 05/08/2025 11:38 AM EDT 05/08/2025 11:50 AM EDT Tee Campbell MD LAB BLOOD ORDERABLES Final Result Performing Organization Address City/[facility]/ZIP Co de Phone Number [facility] [address] [place] [address], * Phosphorus (05/08/2025 11:38 AM EDT) Phosphorus 3.1 2.5 - 4.5 mg/dL LAB CHEMISTRY METHOD 05/08/2025 12:27 PM EDT [facility] Blood Venous blood specimen / Unknown Venipuncture / Unknown 05/08/2025 11:38 AM EDT 05/08/2025 11:50 AM EDT Tee Campbell MD LAB BLOOD ORDERABLES Final Result Performing Organization Address [facility]/ZIP Co de Phone Number [facility] [address] [place] [address], * Magnesium (05/08/2025 11:38 AM EDT) Magnesium 2.1 1.7 - 2.8 mg/dL LAB CHEMISTRY METHOD 05/08/2025 12:27 PM EDT [facility] Blood Venous blood specimen / Unknown Venipuncture / Unknown 05/08/2025 11:38 AM EDT 05/08/2025 11:50 AM EDT Tee Campbell MD LAB BLOOD ORDERABLES Final Result Performing Organization Address City/[facility]/ZIP Co de Phone Number [facility] [address] [place] [address], [place] [phone] * Ethanol (05/08/2025 11:38 AM EDT) Ethanol Level <10 0 - 10 mg/dL LAB CHEMISTRY METHOD 05/08/2025 12:27 PM EDT [facility] Blood Venous blood specimen / Unknown Venipuncture / Unknown 05/08/2025 11:38 AM EDT 05/08/2025 11:50 AM EDT Narrative [facility] - 05/08/2025 12:27 PM EDT Medical Purpose Results of this test are to be used for medical purposes only us Tee Campbell MD LAB BLOOD ORDERABLES Final Result [facility] [address] [place] [address], [place] [phone] * (ABNORMAL) Comprehensive Metabolic Panel (CMP) (05/08/2025 11:38 AM EDT) Sodium 144 135 - 145 mmol/L LAB CHEMISTRY METHOD 05/08/2025 12:27 PM EDT [facility] Potassium 3.3(L) 3.5 - 5.1 mmol/L LAB CHEMISTRY METHOD 05/08/2025 12:27 PM EDT [facility] Chloride 108(H) 98 - 107 mmol/L LAB CHEMISTRY METHOD 05/08/2025 12:27 PM EDT [facility] CO2 24 24 - 32 mmol/L LAB CHEMISTRY METHOD 05/08/2025 12:27 PM EDT [facility] Anion Gap 12 5 - 14 LAB CHEMISTRY METHOD 05/08/2025 12:27 PM EDT [facility] Glucose 112 70 - 199 mg/dL LAB CHEMISTRY METHOD 05/08/2025 12:27 PM EDT [facility] BUN 15 7 - 17 mg/dL LAB CHEMISTRY METHOD 05/08/2025 12:27 PM EDT [facility] Creatinine 1.10(H) 0.50 - 1.00 mg/dL LAB CHEMISTRY METHOD 05/08/2025 12:27 PM EDT [facility] eGFR 55(L) >=60 mL/min/1. 73m2 LAB CHEMISTRY METHOD 05/08/2025 12:27 PM EDT [facility] Comment:Calculation based on the Chronic Kidney Disease Epidemiology Collaboration (CKD-EPI) equation refit without adjustment for race. BUN/Creatinine Ratio 13.6 12.0 - 20.0 LAB CHEMISTRY METHOD 05/08/2025 12:27 PM EDT [facility] Calcium 8.2(L) 8.4 - 10.2 mg/dL LAB CHEMISTRY METHOD 05/08/2025 12:27 PM EDT [facility] AST (SGOT) 18 5 - 40 unit/L LAB CHEMISTRY METHOD 05/08/2025 12:27 PM EDT [facility] ALT (SGPT) 16 7 - 52 unit/L LAB CHEMISTRY METHOD 05/08/2025 12:27 PM EDT [facility] Alkaline Phosphatase 94 34 - 104 unit/L LAB CHEMISTRY METHOD 05/08/2025 12:27 PM EDT [facility] Total Protein 6.4 6.4 - 8.5 g/dL LAB CHEMISTRY METHOD 05/08/2025 12:27 PM EDT [facility] Albumin 4.1 3.5 - 5.0 g/dL LAB CHEMISTRY METHOD 05/08/2025 12:27 PM EDT [facility] Total Bilirubin 0.4 0.3 - 1.0 mg/dL LAB CHEMISTRY METHOD 05/08/2025 12:27 PM EDT [facility] Blood Venous blood specimen / Unknown Venipuncture / Unknown 05/08/2025 11:38 AM EDT 05/08/2025 11:50 AM EDT us Tee Campbell MD LAB BLOOD ORDERABLES Final Result [facility] [address] [place] [address], [place] [phone] * POCT Glucose, blood (05/08/2025 10:21 AM EDT) Glucose POCT 161 70 - 199 mg/dL 05/08/2025 10:22 AM EDT [facility] Comment: Fasting Reference Range: 70-99 mg/dL Non-Fasting Reference Range: 70-199 mg/dL Blood Capillary blood specimen / Unknown 05/08/2025 10:21 AM EDT 05/08/2025 10:23 AM EDT us Tee Campbell MD LAB POINT OF CARE T EST DOCKED DEVICE UNSOLICITED RESULTS Final Result [facility] [address] [place] [address], [place] [phone] from Last 3 Months Insurance MEDICAID - [place] [facility] MEDICARE Member Subscriber Plan / Payer (Ef fective 2023-Present) Name:MALLORY GUERRERO Relation to Subscriber:Self Name:Mallory Guerrero Payer ID:[id number] Group ID:[id number] Type:Not on file Address: [address] [place] [address] Care Teams Police Magistrate Relationship Specialty Start Date End Date Physician, No Pcp PCP - General 05/08/25
--- OUTSIDE RECORDS SUMMARY | 2025-05-09 08:58 | XMS_ITS | Encounter Summary ---
Author Organization [employer] Address [address] [place] [address] 7 [place] [address] Care Team Providers Care Community Support Specialist Name Role Phone Name, Ham HERRING Primary Care Provider [phone] Marya Echavarria PharmD Unavailable Reason for Visit * Reason Comments Med Refill Encounter Details Date Type Department Care Team (Late st Contact Info) Description 04/18/2023 Refill [facility] MEDICINE [address] [place] [address] Name, MD Ham [address] [place] [address] Social History Tobacco Use Types Packs/Day Years [...] Description 05/16/2025 10:30 AM EDT Medication Management [facility] MEDICINE [address] [place] [address] PuiaMalathisa, PharmD [address] [place] [address] 06/26/2025 1:00 PM EST Office Visit [facility] OPTOMETRY [address] [place] [address] Sabrina Wilson, OD [address] [place] [address] 06/27/2025 11:15 AM EST Office Visit [facility] MEDICINE [address] [place] [address] Name, MD Ham [address] [place] [address] documented as of this encounter Visit Diagnoses Not on filedocumented in this encounter Care Teams Community Support Specialist Relationship Specialty Start Date End Date Name, MD Ham [address] [place] [address] PCP - General Family Medicine 01/28/16 Marya Echavarria PharmD [address] [place] [address] Pharmacist Internal Medicine 01/11/25 documented as of this encounter
--- OUTSIDE RECORDS SUMMARY | 2025-05-09 08:58 | XMS_ITS | Encounter Summary ---
Author Organization [email or web address] Address [address] [place] [address] 7t [place] [address] Care Team Providers Care Center Director Name Role Phone Name, Ham HERRING Primary Care Provider [phone] Marya Echavarria PharmD Unavailable [phone] Encounter Details Date Type Department Care Team (Late Contact Info) Description 10/27/2022 Orders Only [facility] [address] [place], [place] [phone] Amber Everett LPN Social History Tobacco Use [...] Description 05/16/2025 10:30 AM EDT Medication Management [facility] MEDICINE [address] [place] [address] Marya Echavarria, PharmD [address] [place] [address] 06/26/2025 1:00 PM EST Office Visit [facility] OPTOMETRY [address] [place], [place] [phone] Sabrina Wilson, OD [address] [place] [address] 06/27/2025 11:15 AM EST Office Visit [facility] MEDICINE [address] [place] [address] Name, MD Ham [address] [place] [address] documented as of this encounter Visit Diagnoses Not on filedocumented in this encounter Care Teams Center Director Relationship Specialty Start Date End Date Name, MD Ham [address] [place] [address] PCP - General Family Medicine 01/28/16 Marya Echavarria PharmD [address] [place] [address] Pharmacist Internal Medicine 01/11/25 documented as of this encounter
--- OUTSIDE RECORDS SUMMARY | 2025-05-09 08:58 | XMS_ITS | Encounter Summary ---
Author Organization [employer] Address [address] [place] [address] 7t [place] [address] Care Team Providers Care B2B Outside Sales Representative Name Role Phone Name, Ham HERRING Primary Care Provider [phone] Marya Echavarria PharmD Unavailable [phone] Reason for Visit * Reason Comments Med Refill Encounter Details Date Type Department Care Team ([facility] st Contact Info) Description 12/28/2024 Refill [facility] MEDICINE [address] [place] [address] Ofelia Blum MD [address] [place] [address] Intertrigo Social History Tobacco Use Types Packs/Day Years [...] 10:30 AM EDT Medication Management [facility] MEDICINE [address] [place] [phone] Marya Echavarria, PharmD [address] [place] [address] 06/26/2025 1:00 PM EST Office Visit [facility] OPTOMETRY [address] [place] [address] TarkaSabrina, OD [address] [place] [address] 06/27/2025 11:15 AM EST Office Visit [facility] MEDICINE [address] [place] [address] Ham Hay MD [address] [place] [address] documented as of this encounter Visit Diagnoses Diagnosis Intertrigo Other specified erythematous condition documented in this encounter Additional Health Concerns Assessment Noted Time PHQ-9 Depression Total Score: 24 024 11:40 AM EDT documented as of this encounter Care Teams B2B Outside Sales Representative Relationship Specialty Start Date End Date Ham Hay MD [address] [place] [address] PCP - General Family Medicine 01/28/16 Marya Echavarria PharmD [address] [place] [address] Pharmacist Internal Medicine 01/11/25 documented as of this encounter
--- OUTSIDE RECORDS SUMMARY | 2025-05-09 08:58 | XMS_ITS | Encounter Summary ---
Author Organization [employer] Address [address] [place] [address] 7t [place] [address] Care Team Providers Care Licensed Clinician Name Role Phone Name, Ham HERRING Primary Care Provider [phone] Marya Echavarria PharmD Unavailable [phone] Encounter Details Date Type Department Care Team (Late Contact Info) Description 01/19/2023 Abstract [facility] MEDICINE [address] [place] [address] Name, MD Ham [address] [place] [address] Social History Tobacco Use Types Packs/Day Years [...] Encounters Date Type Department Care Team (Late Contact Info) Description 05/16/2025 10:30 AM EDT Medication Management [facility] MEDICINE [address] [place] [address] Marya Echavarria, PharmD [address] [place] [address] 06/26/2025 1:00 PM EST Office Visit [facility] OPTOMETRY [address] [place] [address] Sabrina Wilson, OD [address] [place] [address] 06/27/2025 11:15 AM EST Office Visit [facility] MEDICINE [address] [place] [address] Name, MD Ham [address] [place] [address] documented as of this encounter Visit Diagnoses Not on filedocumented in this encounter Care Teams Licensed Clinician Relationship Specialty Start Date End Date Name, MD Ham [address] [place] [address] PCP - General Family Medicine 01/28/16 Marya Echavarria PharmD [address] [place] [address] Pharmacist Internal Medicine 01/11/25 documented as of this encounter
--- OUTSIDE RECORDS SUMMARY | 2025-05-09 08:58 | XMS_ITS | Encounter Summary ---
Author Organization [employer] Address [address] [facility] 7t [place] [address] Care Team Providers Care Instructor Of Sociology Name Role Phone Name, Ham HERRING Primary Care Provider [phone] Marya Echavarria PharmD Unavailable [phone] Reason for Visit * Reason Comments Med Refill Encounter Details Date Type Department Care Team ([facility] st Contact Info) Description 03/29/2025 Refill [facility] MEDICINE [address] [place] [address] Name, MD Ham [address] [place] [address] Social History Tobacco Use Types Packs/Day Years [...] Description 05/16/2025 10:30 AM EDT Medication Management [facility] MEDICINE [address] [place] [address] Marya Echavarria, PharmD [address] [place] [address] 06/26/2025 1:00 PM EST Office Visit [facility] OPTOMETRY [address] [place] [address] Sabrina Wilson, OD [address] [place] [address] 06/27/2025 11:15 AM EST Office Visit [facility] MEDICINE [address] [place] [address] Ham Hay MD [address] [place] [address] documented as of this encounter Visit Diagnoses Not on filedocumented in this encounter Additional Health Concerns Assessment Noted Time PHQ-9 Depression Total Score: 24 024 11:40 AM EDT documented as of this encounter Care Teams Instructor Of Sociology Relationship Specialty Start Date End Date Ham Hay MD [address] [place] [address] PCP - General Family Medicine 01/28/16 Marya Echavarria, LaurieD [address] [place] [address] Pharmacist Internal Medicine 01/11/25 documented as of this encounter
--- OUTSIDE RECORDS SUMMARY | 2025-05-09 08:58 | XMS_ITS | Encounter Summary ---
Author Organization [employer] Address [address] [place] [address] 7 [place] [address] Care Team Providers Care Cloth Desizing Range Tender Name Role Phone Name, Ham HERRING Primary Care Provider [phone] Marya Echavarria PharmD Unavailable [phone] Reason for Visit * Reason Onset Date Comments Pre Op 10/04/2024 Encounter Details Date Type Department Care Team (Late st Contact Info) Description 10/04/2024 Telephone [facility] MEDICINE [address] [place] [address] Name, MD Ham [address] [place] [address] Pre Op Social History Tobacco Use Types [...] 11/07/24 Surgical procedure being done: Cistoscopy with Gay distention of the Blader Type of anesthesia: general anesthesia Lab needed: Yes EKG: Yes Surgeon's name: Dr. Hoffman Facility name: [facility] Surgeon's office number: [phone] Surgeon's office fax number: [phone] Contact name (person you spoke with): Xiomara Last office note from surgeon requested: No Send Message to Yajaira Ramírez and Orestes Allan documented in this encounter Plan of Treatment Upcoming Encounters Date Type Department Care Team (Late st Contact Info) Description 05/16/2025 10:30 AM EDT Medication Management [facility] MEDICINE [address] [place] [address] Marya Echavarria, PharmD [address] [place] [address] 06/26/2025 1:00 PM EST Office Visit [facility] OPTOMETRY [address] [place] [address] Sabrina Wilson, OD [address] [place] [address] 06/27/2025 11:15 AM EST Office Visit [facility] MEDICINE [address] [place] [address] Name, MD Ham [address] [place] [address] documented as of this encounter Visit Diagnoses Not on filedocumented in this encounter Additional Health Concerns Assessment Noted Time PHQ-9 Depression Total Score: 24 024 11:40 AM EDT documented as of this encounter Care Teams Cloth Desizing Range Tender Relationship Specialty Start Date End Date Name, MD Ham [address] [place] [address] PCP - General Family Medicine 01/28/16 Marya Echavarria PharmD [address] [place] [address] Pharmacist Internal Medicine 01/11/25 documented as of this encounter
[2025-05-09 09:44] LABS: Appearance Urine Clear; Glucose Urine UA 100 mg/dL (Negative); PH 7.0 (5.0-9.0); Specific Gravity - Urine 1.015 (1.005-1.025); UMIC TRIGGER UA YES
[2025-05-09 09:59] LABS: Cannabinoid Screen Urine Not Detected (Not Detect)
--- NOTE | 2025-05-09 12:26 | PC.NURSE ---
Pt being seen by Care Team
[2025-05-09 12:45] VITALS: BP 133/73; PULSE 76; RESP 16; TEMP 37.1; O2SAT 99
[2025-05-09 13:02] VITALS: BP 133/73; PULSE 76; RESP 16; TEMP 37.1; O2SAT 99
== END 2025-05-09 13:13 | disposition home or self-care (01) ==
PROVIDERS: Emergency Provider Emergency Medicine; PCP Internal Medicine Geriatric Medicine
DX: F20.9 Schizophrenia, unspecified (principal); F41.9 Anxiety disorder, unspecified; R53.1 Weakness; R11.0 Nausea; Z79.899 Other long term (current) drug therapy
CPT/HCPCS: 36415; 80053; 80143; 80179; 80307; 81001; 83690; 85025; 93005; 96372; 99284; J3360; S9485

== ENCOUNTER → 2025-05-09 08:09 | Outpatient (BNV) | payer OTHER, SELFPAY | PROVIDERS: Emergency Provider Emergency Medicine; PCP Internal Medicine Geriatric Medicine; Visit Provider Internal Medicine | DX: I49.3 Ventricular premature depolarization (principal) | CPT/HCPCS: 93010 ==

== ENCOUNTER 2025-05-10 13:36 | Inpatient (IN) | payer OTHER, SELFPAY ==
--- OUTSIDE RECORDS SUMMARY | 2025-05-08 09:38 | XMS_ITS | Encounter Summary ---
Author Organization [facility] Address [address] [place] [address] Care Team Providers Care Tribunal Member Name Role Phone Physician, No Pcp Primary Care Provider Unavaila ble Reason for Visit * Reason Comments Weakness - Generalized Encounter Details Date Type Department Care Team (Late st Contact Info) Description 05/08/2025 9:38 AM EDT - 05/08/2025 2:20 PM EDT Emergency [facility] Emergency [address] [place] [phone] Tee Campbell MD [address], [place] [id number] Weakness (Primary Dx); Hypokalemia Discharge Disposition: Home [...] 10:24 AM EDT Lorna Musa RN * [place] Suicide Severity Rating Scale (Screener/Recent Self-Report) Question Answer Date of Assessment Author 1. Wish to be (Past 1 Month) No 025 10:24 AM EDLorna Christensen RN 2. Non-Specific Active Suici carla Thoughts (Past 1 Month) No 05/08/2025 10:24 AM EDT Amilcar Meléndez RN 6. Suicidal Behavior (Lifetime) No 10:24 AM Loran Patrick RN documented as of this encounter [...] sent through Care Everywhere. * Weakness: Generalized ([place]) documented in this encounter Medications at Time [...] mouth 1 (one) time each day. 06/23/2022 simethicone (MYLICON,GAS-X) 180 mg capsule Take 1 capsule (180 mg total) by mouth 4 (four) times a day if needed (PRN). zolpidem tartrate (AMBIEN ORAL) Take 10 mg by mouth if needed (PRN). Per patient takes every night. documented as of this encounter Discharge Disposition Disposition Code Departure Means Destination Comment s Home or Self Long-Term documented in this encounter Progress Notes * [...] Patient is brought in by EMS from [facility]. Per EMS, they were called for the unresponsive person on the plane. EMS reports that patient had a blood pressure of 100/70, which improved to 128/70 after 750mL of fluids. EMS also reports an initial BGL of 190. EMS stated that patient was difficult to arouse. Patientwas somnolent but arousable. Patient reports that she was going to fly to [place] this morning with her family. She was at the airport when she began to feel nauseous and dizzy. Patient denies headache, vision changes, chest pain, palpitations, difficulty breathing, shortness of breath, cough, diarrhea, syncope, loss of consciousness. [place] Coma Scale Score: 15 Patient History Medical [...] Patient is brought in by EMS from [facility]. Patient smells of alcohol. Somnolent but arousable. [...] CBC auto differential (05/08/2025 11:38 AM EDT) [facility] WBC 6.4 4.0 - 10.5 K/mcL LAB HEMETOLOGY METHOD 05/08/2025 12:02 PM EDT [facility] RBC 4.58 4.20 - 5.40 M/mcL LAB HEMETOLOGY METHOD 05/08/2025 12:02 PM EDT [facility] Hemoglobin 11.7(L) 12.5 - 16.0 g/dL LAB HEMETOLOGY METHOD 05/08/2025 12:02 PM EDT [facility] Hematocrit 35.4(L) 37.0 - 47.0 % LAB HEMETOLOGY METHOD 05/08/2025 12:02 PM EDT [facility] MCV 77.3(L) 78.0 - 100.0 FL LAB HEMETOLOGY METHOD 05/08/2025 12:02 PM EDT [facility] MCH 25.6 25.0 - 33.0 pcg LAB HEMETOLOGY METHOD 05/08/2025 12:02 PM EDT [facility] MCHC 33.0 32.0 - 36.0 g/dL LAB HEMETOLOGY METHOD 05/08/2025 12:02 PM EDT [facility] RDW 13.4 12.1 - 16.2 % LAB HEMETOLOGY METHOD 05/08/2025 12:02 PM EDT [facility] Platelets 233 150 - 450 K/mcL LAB HEMETOLOGY METHOD 05/08/2025 12:02 PM EDT [facility] MPV 8.8 7.4 - 11.4 FL LAB HEMETOLOGY METHOD 05/08/2025 12:02 PM EDT [facility] Neutrophils Relative 69.8 44.0 - 74.0 % LAB HEMETOLOGY METHOD 05/08/2025 12:02 PM EDT [facility] Lymphocytes Relative 24.3 20.0 - 48.0 % LAB HEMETOLOGY METHOD 05/08/2025 12:02 PM EDT [facility] Monocytes Relative 5.3 2.0 - 12.0 % LAB HEMETOLOGY METHOD 05/08/2025 12:02 PM EDT [facility] Eosinophils Relative 0.4 0.0 - 6.0 % LAB HEMETOLOGY METHOD 05/08/2025 12:02 PM EDT [facility] Basophils Relative 0.2 0.0 - 2.0 % LAB [facility]ETOLOGY [facility] Neutrophils Absolute 4.50 1.80 - 7.80 K/mcL LAB HEMETOLOGY METHOD 05/08/2025 12:02 PM EDT [facility] Lymphocytes Absolute 1.60 1.00 - 3.20 K/mcL LAB HEMETOLOGY METHOD 05/08/2025 12:02 PM EDT [facility] Monocytes Absolute 0.30 0.00 - 0.80 K/mcL LAB HEMETOLOGY METHOD 05/08/2025 12:02 PM EDT [facility] Eosinophils Absolute 0.00 0.00 - 0.50 K/mcL LAB HEMETOLOGY METHOD 05/08/2025 12:02 PM EDT [facility] Basophils Absolute 0.00 0.00 - 0.20 K/mcL LAB HEMETOLOGY METHOD 05/08/2025 12:02 PM EDT [facility] Blood Venous blood specimen / Unknown Venipuncture / Unknown 05/08/2025 11:38 AM EDT 05/08/2025 11:50 AM EDT Tee Campbell MD LAB BLOOD ORDERABLES Final Result [facility] [address] [place] [address], [place] [phone] * Troponin I High Sensitivity (05/08/2025 11:38 AM EDT) Pathologist [facility] High Sensitivity Troponin I 4 0 - 14 ng/L LAB CHEMISTRY METHOD 05/08/2025 12:29 PM EDT [facility] Blood Venous blood specimen / Unknown Venipuncture / Unknown 05/08/2025 11:38 AM EDT 05/08/2025 11:50 AM EDT Narrative [facility] - 05/08/2025 12:29 PM EDT HSTnI [...] method is an immunoenzymatic assay manufactured by [employer] and performed on the [employer] 800. us Tee Campbell MD LAB BLOOD ORDERABLES Final Result Performing Organization Address City/[facility]/ZIP Co de Phone Number [facility] [address] [place] [address], [place] [phone] * Phosphorus (05/08/2025 11:38 AM EDT) Phosphorus 3.1 2.5 - 4.5 mg/dL LAB CHEMISTRY METHOD 05/08/2025 12:27 PM EDT [facility] Blood Venous blood specimen / Unknown Venipuncture / Unknown 05/08/2025 11:38 AM EDT 05/08/2025 11:50 AM EDT Tee Campbell MD LAB BLOOD ORDERABLES Final Result Performing Organization Address City/[facility]/ZIP Co de Phone Number [facility] [address] [place] [address], [place] [phone] * Magnesium (05/08/2025 11:38 AM EDT) [facility] Magnesium 2.1 1.7 - 2.8 mg/dL LAB CHEMISTRY METHOD 05/08/2025 12:27 PM EDT [facility] Blood Venous blood specimen / Unknown Venipuncture / Unknown 05/08/2025 11:38 AM EDT 05/08/2025 11:50 AM EDT Tee Campbell MD LAB BLOOD ORDERABLES Final Result Performing Organization Address City/[facility]/ZIP Co de Phone Number [facility] [address] [place] [id number], [place] [phone] * Lactate, with Reflex (05/08/2025 11:38 AM EDT) LACTIC ACID 2.0 0.5 - 2.2 mmol/L LAB BLOOD GAS METHOD 05/08/2025 11:58 AM EDT [facility] Blood Venous blood specimen / Unknown Venipuncture / Unknown 05/08/2025 11:38 AM EDT 05/08/2025 11:50 AM EDT Tee Campbell MD LAB BLOOD ORDERABLES Final Result [facility] [address] [place] [address], [place] [phone] * Ethanol (05/08/2025 11:38 AM EDT) Ethanol Level <10 0 - 10 mg/dL LAB CHEMISTRY METHOD 05/08/2025 12:27 PM EDT [facility] Blood Venous blood specimen / Unknown Venipuncture / Unknown 05/08/2025 11:38 AM EDT 05/08/2025 11:50 AM EDT Narrative [facility] - 05/08/2025 12:27 PM EDT Medical Purpose Results of this test are to be used for medical purposes only Tee Campbell MD LAB BLOOD ORDERABLES Final Result [facility] [address] [place] [address], [place] [phone] * (ABNORMAL) Comprehensive Metabolic Panel (CMP) (05/08/2025 11:38 AM EDT) Sodium 144 135 - 145 mmol/L LAB CHEMISTRY METHOD 05/08/2025 12:27 PM EDT [facility] Potassium 3.3(L) 3.5 - 5.1 mmol/L LAB CHEMISTRY METHOD 05/08/2025 12:27 PM EDT [facility] Chloride 108(H) 98 - 107 mmol/L LAB CHEMISTRY METHOD 05/08/2025 12:27 PM EDT [facility] CO2 24 24 - 32 mmol/L LAB CHEMISTRY METHOD 05/08/2025 12:27 PM [facility] Anion Gap 12 5 - 14 LAB CHEMISTRY METHOD 05/08/2025 12:27 PM [facility] Glucose 112 70 - 199 mg/dL LAB CHEMISTRY METHOD 05/08/2025 12:27 PM [facility] BUN 15 7 - 17 mg/dL LAB CHEMISTRY METHOD 05/08/2025 12:27 PM [facility] Creatinine 1.10(H) 0.50 - 1.00 mg/dL LAB CHEMISTRY METHOD 05/08/2025 12:27 PM [facility] eGFR 55(L) >=60 mL/min/1. 73m2 LAB CHEMISTRY METHOD 05/08/2025 12:27 PM [facility] Comment:Calculation based on the Chronic Kidney Disease Epidemiology Collaboration (CKD-EPI) equation refit without adjustment for race. BUN/Creatinine Ratio 13.6 12.0 - 20.0 LAB CHEMISTRY METHOD 05/08/2025 12:27 PM [facility] Calcium 8.2(L) 8.4 - 10.2 mg/dL LAB CHEMISTRY METHOD 05/08/2025 12:27 PM [facility] AST (SGOT) 18 5 - 40 unit/L LAB CHEMISTRY METHOD 05/08/2025 12:27 PM [facility] ALT (SGPT) 16 7 - 52 unit/L LAB CHEMISTRY METHOD 05/08/2025 12:27 PM [facility] Alkaline Phosphatase 94 34 - 104 unit/L LAB CHEMISTRY METHOD 05/08/2025 12:27 PM [facility] Total Protein 6.4 6.4 - 8.5 g/dL LAB CHEMISTRY METHOD 05/08/2025 12:27 PM [facility] Albumin 4.1 3.5 - 5.0 g/dL LAB CHEMISTRY METHOD 05/08/2025 12:27 PM EDT [facility] Total Bilirubin 0.4 0.3 - 1.0 mg/dL LAB CHEMISTRY METHOD 05/08/2025 12:27 PM EDT [facility] Blood Venous blood specimen / Unknown Venipuncture / Unknown 05/08/2025 11:38 AM EDT 05/08/2025 11:50 AM EDT Tee Campbell MD LAB BLOOD ORDERABLES Final Result [facility] [address] [place] [address], [place] [phone] * POCT Glucose, blood (05/08/2025 10:21 AM EDT) [facility] Glucose POCT 161 70 - 199 mg/dL 05/08/2025 10:22 AM EDT [facility] Comment: Fasting Reference Range: 70-99 mg/dL Non-Fasting Reference Range: 70-199 mg/dL Blood Capillary blood specimen / Unknown 05/08/2025 10:21 AM EDT 05/08/2025 10:23 AM EDT Tee Campbell MD LAB POINT OF CARE T EST DOCKED DEVICE UNSOLICITED RESULTS Final Result Performing Organization Address [facility]/ZIP Co de Phone Number [facility] [address] [place] [address], [place] [phone] documented in this encounter Visit Diagnoses Diagnosis [...] immediately). documented in this encounter Care Teams Tribunal Member Relationship Specialty Start Date End Date Physician, No Pcp PCP - General 05/08/25 documented as of this encounter
--- NOTE | 2025-05-10 13:56 | ED.GENADULT ---
HPI - General Adult General Chief complaint: Psychiatric Symptoms Stated complaint: HALLUCINATIONS,SI,NO MEDS IN DAYS PER EMS Time Seen by Provider: 05/10/25 13:56 Source: patient and EMS Mode of arrival: EMS Limitations: no limitations History of Present Illness ED Provider: Tonya Bethea PA-C HPI narrative: Patient is a 69 year old assigned female at with a history of GERD and bipolar disorder presenting to the emergency department today with SI and auditory + visual hallucinations. Patient states that she is suicidal but will not provide any more insight to a plan or why she is suicidal. Patient denies any other complaints at this time. Related Data Home Medications ?Medication ?Instructions ?Recorded ?Confirmed brimonidine 0.2 %-timolol 0.5 % 1 drp ophthalmic-Right BID 12/13/21 05/10/25 eye drops (Combigan) latanoprost 0.005 % eye drops 1 drp ophthalmic (eye) BID 11/10/22 05/10/25 alprazolam 1 mg tablet 1 mg PO QID PRN Anxiety 07/11/24 05/10/25 hydroxyzine pamoate 50 mg capsule 50 mg PO BID PRN Anxiety 07/11/24 05/10/25 methylphenidate HCl 20 mg 20 mg PO BID 07/11/24 05/10/25 tablet,extended release quetiapine 400 mg tablet,extended 400 mg PO BEDTIME 07/11/24 05/10/25 release 24 hr venlafaxine 75 mg capsule,extended 150 mg PO DAILY 07/11/24 05/10/25 release 24 hr zolpidem 10 mg tablet 10 mg PO BEDTIME PRN Insomnia 07/11/24 05/10/25 metformin 500 mg tablet 500 mg PO BID 11/23/24 05/10/25 Previous Rx's ?Medication ?Instructions ?Recorded sennosides 8.6 mg tablet (senna) 17.2 mg (2 x 8.6 mg) PO BEDTIME 12/21/23 constipation #60 tabs prazosin 2 mg capsule 6 mg (3 x 2 mg) PO BEDTIME #90 caps 04/25/24 bisacodyl 5 mg tablet,delayed 10 mg (2 x 5 mg) PO BEDTIME #60 12/29/24 release tabs dicyclomine 10 mg capsule 10 mg PO QID #120 caps 12/29/24 metoclopramide HCl 10 mg tablet 10 mg PO QIDACHS #120 tabs 12/29/24 (Reglan) misoprostol 200 mcg tablet 200 mcg PO BID #60 tabs 12/29/24 prucalopride 2 mg tablet 2 mg PO DAILY #30 tabs 12/29/24 rabeprazole 20 mg tablet,delayed 20 mg PO BID #60 tabs 12/29/24 release simethicone 180 mg capsule 180 mg PO QID #120 caps 12/29/24 Linzess 290 mcg capsule 290 mcg PO DAILY #30 caps 03/14/25 (linaclotide) famotidine 40 mg tablet 40 mg PO BEDTIME #90 tabs 03/14/25 polyethylene glycol 3350 17 17 g PO DAILY #238 grams 04/12/25 gram/dose oral powder Allergies Allergy/AdvReac Type Severity Reaction Status Date / Time No Known Allergies (No Known Allergy Verified 05/10/25 14:27 Allergies*) Review of Systems Constitutional: Constitutional: Reports as per HPI Eyes: Eyes: Reports as per HPI ENT: Reports as per HPI Cardiovascular: Cardiovascular: Reports as per HPI Respiratory: Respiratory: Reports as per HPI Gastrointestinal: Gastrointestinal: Reports as per HPI Genitourinary: Genitourinary: Reports as per HPI Musculoskeletal: Musculoskeletal: Reports as per HPI Integumentary/Breasts: Skin/Breast: Reports as per HPI Neurologic: Reports as per HPI Psychiatric: Psychiatric: Reports as per HPI Endocrine: Endocrine: Reports as per HPI Hematologic/Lymphatic: Hematologic/Lymphatic: Reports as per HPI Allergic/Immunologic: Allergic/Immunologic: Reports as per HPI [facility] Past Medical History Attestation statement: The following information was validated with the patient. Source: old records reviewed and nursing notes reviewed Medical History Bipolar disorder PTSD (post-traumatic stress disorder) Depression Anxiety Fibromyalgia Schizophrenia Anemia Ileus Tubular adenoma of colon History of pancreatitis Irritable bowel syndrome with constipation Diverticulitis GERD (gastroesophageal reflux disease) Chronic idiopathic constipation Surgical History History of esophagogastroduodenoscopy (EGD) Hx of colonoscopy Family History Family History Father No problems noted. Mother Diabetes Melanoma Family history of hypertension Family history of diabetes mellitus Social History Social History Household Members: Significant Other Housing: House Are you a primary respiratory care specialist to a significant other at home: No Do you presently have visiting nurse or other home services: No Alcohol intake: never Patient Tobacco Use Status: Never used Tobacco Second Hand Smoke Exposure: No Advance Directives: No Advance Directives Information Provided: Yes Do you have a plan to hurt others: No Plan service: No Current occupational status: disabled Sexual orientation: Straight/Heterosexual Physical Exam ED Vital Signs: Vital Signs - 24 hr 05/10/25 15:07 Temperature 97.7 F Pulse Rate 72 Respiratory Rate 16 Blood Pressure 140/73 H Pulse Oximetry 97 Oxygen Delivery Method Room Air BMI result Body Mass Index 32.9 Const General: cooperative, no acute distress, alert and awake Nutritional Appearance: well nourished Orientation/consciousness: patient oriented x3 HENMT Head: Yes normal to inspection and Yes atraumatic Ears: hearing grossly normal bilaterally and external ears normal General nose exam: Normal external nose present, no nasal discharge noted and no epistaxis Face and sinus: Yes normal facial exam, No abrasion and No laceration Mouth: Normal oral and palatal mucosa present, no drooling and no muffled voice Eyes General: appearance normal, both eyes and all related structures Periorbital: periorbital findings normal Eyelids: Yes eyelids normal Conjunctivae: conjunctivae normal Pupils: Equal, round and reactive pupils present EOM: EOMs intact bilaterally Neck Neck: Yes normal visual inspection and Yes full ROM Resp Effort & Inspection: normal respiratory effort and able to speak in complete sentences Neuro General: patient oriented x3, moves all extremities and CN's II-XI intact bilaterally Cranial nerves: Yes Equal, round and reactive pupils present Cognition (Neuro): normal cognition Extrem General: Yes normal to inspection, Yes full ROM and Yes capillary refill normal Psych Appearance: grossly normal Mental Status: mental status grossly normal Thought content: Suicidality present Medications Administered Discontinued Medications Generic Name Dose Route Start Last Admin Trade Name Freq PRN Reason Stop Dose Admin Potassium Chloride 40 meq 05/10/25 15:06 05/10/25 15:27 Potassium Chloride Packet 20 Meq Packet PO 05/10/25 15:07 40 meq ONCE ONE Administration Medical Decision Making Medical Decision Making MDM Narrative: Patient is a 69 year old assigned female at with a history of GERD and bipolar disorder presenting to the emergency department today with SI and auditory + visual hallucinations. Patient's physical exam was as noted in the physical exam portion of this note. Patient's blood work showed a potassium of 3.2 but were otherwise unremarkable. Patient's urine is pending. Patient's EKG was unremarkable. I explained my physical exam findings as well as all test results to the patient. I answered all questions asked by the patient. Patient's disposition will be determined after CARE team evaluation. Patient placed in observation at 1630. Differential Diagnosis Differential Diagnoses: The differential diagnosis associated with the presentation includes SI AH VH Admission/Observation Consideration of admission/observation: Escalation of care including admission/observation considered Patient's disposition will be determined after CARE team evaluation. Lab Data [facility] Lab Attestation statement: I reviewed the patient's lab results. My interpretation of these results are in the MDM Rationale portion of this note. 05/10/25 14:12 05/10/25 14:12 Labs: Lab Results 05/10/25 Range/Units 14:12 WBC 8.7 (4.8-10.8) X10*3/uL RBC 4.79 (4.20-5.50) X10*6/uL Hgb 12.0 (12.0-16.0) g/dl Hct 35.7 L (37.0-47.0) % MCV 74.5 L (80.0-98.0) fL MCH 25.1 L (27.0-33.0) pg MCHC 33.6 (31.0-35.0) g/dl RDW 13.6 (11.0-16.0) % Plt Count 267 (160-400) X10*3/uL MPV 10.5 (9.4-12.3) fL Immature Gran % (Auto) 0.6 H (0.0-0.4) % Neut % (Auto) 71.1 (45-73) % Lymph % (Auto) 21.8 (20-40) % [place] % (Auto) 6.3 (2-11) % Eos % (Auto) 0.0 (0-4) % Baso % (Auto) 0.2 (0-2) % Lymph # (Auto) 1.9 (1.2-4.9) X10*3/uL [place] # (Auto) 0.6 (0.1-1.2) X10*3/uL Eos # (Auto) 0.0 (0.0-0.4) X10*3/uL Baso # (Auto) 0.0 (0.0-0.2) X10*3/uL Abs Immat Gran (auto) 0.05 H (0.00-0.03) X10*3/uL Absolute Neuts (auto) 6.2 (2.0-8.3) x10*3/uL Absolute Nucleated RBC 0.000 (0.0-0.012) X10*3/uL Nucleated RBC % (auto) 0.0 (0.0-0.2) /100WBC Sodium 142 (135-145) mmol/L Potassium 3.2 L (3.3-5.1) mmol/L Chloride 109 H (96-108) mmol/L Carbon Dioxide 22 (22-29) mmol/L Anion Gap 14 (12-20) BUN 16 (9-16) mg/dL Creatinine 0.90 (0.5-1.4) mg/dL Estim Creat Clear Calc 60.0 Estimated GFR > 60 Random Glucose 184 H (60-115) mg/dL Calcium 8.9 (8.4-10.2) mg/dL Total Bilirubin 0.7 (0.0-1.0) mg/dL AST 38 H (5-31) U/L ALT 34 H (0-31) U/L Alkaline Phosphatase 111 (39-117) U/L Total Protein 6.9 (6.5-8.0) g/dL Albumin 4.5 (3.5-5.0) g/dL Salicylates < 5.0 L (15-30) mg/dL Acetaminophen < 3 (<30) mcg/mL Ethyl Alcohol 12 mg/dL COVID-19 (DENIS) Negative (Negative) COVID-19 Clin Com See Note Independent Interpretation I performed an independent interpretation of an: EKG Interpretation: I independently interpreted this EKG and am in agreement with the below findings: Vent. Rate: 73 BPM Atrial Rate: 73 BPM P-R Int: 178 ms QRS Dur: 78 ms QT Int: 410 ms P-R-T Axes: 56 92 104 degrees QTcB Int: 451 ms Normal sinus rhythm Rightward axis Nonspecific T wave abnormality When compared with ECG of 09-May-2025 08:30, Premature ventricular complexes are no longer Present Nonspecific T wave abnormality, worse in Lateral leads QT has shortened Radiology Impression Discussion of test interpretation with radiology: I have reviewed the radiologist's reading. Independent Historian Clinical information obtained from an independent historian. History obtained from or confirmed by: EMS (EMS provided additional history and confirmed the history provided by the patient.) Discharge Plan Discharge Clinical Impression: Suicidal ideation, Auditory hallucination, Hallucination, visual Prescriptions: No Action Linzess 290 mcg capsule 290 mcg PO DAILY Qty: 30 1RF famotidine 40 mg tablet 40 mg PO BEDTIME Qty: 90 0RF polyethylene glycol 3350 17 gram/dose powder 17 g PO DAILY Qty: 238 0RF brimonidine-timolol [Combigan] 0.2-0.5 % drops 1 drp ophthalmic-Right BID prazosin 2 mg Capsule 6 mg PO BEDTIME Qty: 90 0RF latanoprost 0.005 % drops 1 drp ophthalmic (eye) BID metformin 500 mg tablet 500 mg PO BID sennosides [senna] 8.6 mg tablet 17.2 mg PO BEDTIME Qty: 60 6RF zolpidem 10 mg tablet 10 mg PO BEDTIME PRN (Reason: Insomnia) alprazolam 1 mg tablet 1 mg PO QID PRN (Reason: Anxiety) venlafaxine 75 mg capsule,extended release 24hr 150 mg PO DAILY methylphenidate HCl 20 mg tablet extended release 20 mg PO BID quetiapine 400 mg tablet extended release 24 hr 400 mg PO BEDTIME hydroxyzine pamoate 50 mg capsule 50 mg PO BID PRN (Reason: Anxiety) metoclopramide HCl [Reglan] 10 mg tablet 10 mg PO QIDACHS Qty: 120 12RF prucalopride 2 mg tablet 2 mg PO DAILY Qty: 30 6RF dicyclomine 10 mg capsule 10 mg PO QID Qty: 120 6RF bisacodyl 5 mg tablet,delayed release (DR/EC) 10 mg PO BEDTIME Qty: 60 6RF rabeprazole 20 mg tablet,delayed release (DR/EC) 20 mg PO BID Qty: 60 6RF simethicone 180 mg capsule 180 mg PO QID Qty: 120 6RF misoprostol 200 mcg tablet 200 mcg PO BID Qty: 60 6RF Interventions: Conway-Suicide Risk Severity Scale Last Done: 05/10/25 14:47 Print Language: Mongolian
--- NOTE | 2025-05-10 13:57 | ECG_ITS ---
Test Reason : R/O PROLONGED QT Blood Pressure : */* mmHG Vent. Rate : 73 BPM Atrial Rate : 73 BPM P-R Int : 178 ms QRS Dur : 78 ms QT Int : 410 ms P-R-T Axes : 56 92 104 degrees QTcB Int : 451 ms Normal sinus rhythm Rightward axis Nonspecific T wave abnormality Abnormal ECG When compared with ECG of 09-May-2025 08:30, Premature ventricular complexes are no longer Present Nonspecific T wave abnormality, worse in Lateral leads Referred By: Tonya Bethea Electronically Signed By: JESSICA MCPHERSON
[2025-05-10 14:18] LABS: MANUAL DIFF FLAG NO
[2025-05-10 14:21] LABS: Hematocrit 35.7 % (37.0-47.0); Hemoglobin 12.0 g/dl (12.0-16.0); Imm Gran Abs Auto 0.05 X10*3/uL (0.00-0.03); Imm Gran Pct Auto 0.6 % (0.0-0.4); Lymphocytes Absolute Auto 1.9 X10*3/uL (1.2-4.9); Mean Corpuscular HGB Conc 33.6 g/dl (31.0-35.0); Mean Corpuscular Hemoglobin 25.1 pg (27.0-33.0); Mean Corpuscular Volume 74.5 fL (80.0-98.0); NRBC Abs Auto 0.000 X10*3/uL (0.0-0.012); NRBC Pct Auto 0.0 /100WBC (0.0-0.2); Platelet Count 267 X10*3/uL (160-400); Red Blood Count 4.79 X10*6/uL (4.20-5.50); White Blood Count 8.7 X10*3/uL (4.8-10.8)
[2025-05-10 14:24] VITALS: BP 154/82; PULSE 95; O2SAT 98; BMI 32.9
[2025-05-10 14:40] LABS: Alanine Aminotransferase 34 U/L (0-31); Albumin Level 4.5 g/dL (3.5-5.0); Alkaline Phosphatase 111 U/L (39-117); Anion Gap 14 (12-20); Aspartate Amino Transferase 38 U/L (5-31); Blood Urea Nitrogen 16 mg/dL (9-16); Calcium 8.9 mg/dL (8.4-10.2); Carbon Dioxide 22 mmol/L (22-29); Chloride 109 mmol/L (96-108); Creatinine Clr Calc Pharmacy 60.0; Estimated Glomerular Filt Rate > 60; Potassium 3.2 mmol/L (3.3-5.1); Sodium 142 mmol/L (135-145); Total Protein 6.9 g/dL (6.5-8.0)
[2025-05-10 14:45] LABS: Acetaminophen LAB < 3 mcg/mL (<30); Salicylate < 5.0 mg/dL (15-30)
[2025-05-10 14:58] LABS: COVID-19 Test Negative (Negative); IDNOW Serial# 55D5AD1C
[2025-05-10 15:07] VITALS: BP 140/73; PULSE 72; RESP 16; TEMP 36.5; O2SAT 97
[2025-05-10] MEDS: Potassium Chloride Packet 20 MEQ PACKET 40 MEQ PO (15:27)
--- NOTE | 2025-05-10 15:59 | MHC.EDTECH ---
This tech attempted to obtain urine sample from patient. Patient stated they did not have to go but still walked to the bathroom and attempted to provide sample. Unable to void at this time. Patient took cup back to her room for her next attempt. RN aware
--- OUTSIDE RECORDS SUMMARY | 2025-05-10 16:48 | XMS_ITS | Clinical Summary ---
Author Organization [employer] Address [address] [place] [address] 7t [place] [address] Care Team Providers Care Automatic Clipper Name Role Phone Name, Ham HERRING Primary Care Provider [phone] Marya Echavarria PharmD Unavailable [phone] Allergies Active Allergy Reactions Criticality Noted [...] BY MOUTH AT BEDTIME 2 Active Creon 35204-69550 units capsule Take 1 capsule by mouth [...] 11 5 Active Blood Glucose Monitoring Suppl (Nauchime.orgStShopAdvisor Precision Issac System) w/Device kitIndications :Type 2 [...] complication, without long-term current use of insulin ([facility]),Hypoglyc emia Chew 4 tablets (16 g) if needed for low blood sugar. <70 mg/dL. Repeat treatment as needed. 40 tablet 5 5 01/12/20 26 Active glucose blood (FreeStyle Precision Issac Test) test stripIndicatio ns:Type 2 diabetes mellitus without complication, without long-term current use of insulin ([facility]) Use to test blood sugar up once daily, as directed 50 each 11 5 Active FreeStyle lancetsIndicat ions:Type 2 diabetes mellitus without complication, without long-term current use of insulin ([facility]) 1 each by Other route Once per [...] complication, without long-term current use of insulin ([facility]) Take 1 tablet (500 mg) by mouth [...] 09/30/2016 04/02/2025 Pericardial effusion 03/30/2016 025 Encounters * This document contains information received from the source organization and may not represent a complete record from that organization. Date Type Department Care Team Description 05/09/2025 Orders Only GENERIC EXTERNAL DATA DEPARTMENT Provider, Generic External Data 04/17/[address] [address] Ham Hay MD Appointment Request 04/13/2025 Telephone [facility] Avalos [phone] Ham Hay MD Med Refill 04/06/2025 Results Follow-Up [facility] Avalos [phone] Ham Hay MD Comprehensive Metabolic Panel, Lipid Panel with Reflex to Direct LDL 04/02/2025 10:00 AM EDT Office Visit [facility] Avalos [phone] Ham Hay MD Type 2 diabetes mellitus without complication, without long-term current use of insulin ([facility]) (Primary Dx) 04/02/2025 Orders Only [facility] [place] [address] Ham Hay MD 04/02/2025 Travel 03/29/2025 Refill [facility] [place] [address] Ham Hay MD 03/21/2025 Telephone [facility] [place] [address] Marya Echavarria, PharmD 03/13/2025 Telephone [facility] [place] [address] Ham Hay MD Med Refill 02/22/2025 Telephone [facility] [place] [address] Ham Hay MD Medication Question 02/20/2025 Travel [...] Description 05/16/2025 10:30 AM EDT Medication Management [facility] [address] [place] [address] Marya Echavarria, PharmD [address] [place] [address] 06/26/2025 1:00 PM EST Office Visit [facility] OPT[facility] [address] [place] [address] TarkaSabrina, OD [address] [place] [address] 06/27/2025 11:15 AM EST Office Visit [facility] [address] [place] [address] Name, MD Ham [address] [place] [address] Health Maintenance Due Date Last Done Comments [...] 04/02/2026 04/02/2025 Depression Screening 04/02/2026 04/02/2025, 08/31/19 23 Diabetes: Foot Exam 04/02/2026 04/02/2025, 04/02/2025, 04/02/2025, [...] Procedure Name Priority Date/Time Associated Diagnosis Comments DRUG MONITOR, PANEL 1, SCREEN, URINE Routine 05/09/2025 9:37 AM EDT URINALYSIS, COMPLETE Routine 05/09/2025 9:37 AM EDT LIPID PANEL WITH REFLEX TO DIRECT LDL Routine 04/02/2025 10:15 AM EDT COMPREHENSIVE METABOLIC PANEL Routine 04/02/2025 10:15 AM EDT MAGNESIUM Routine 04/02/2025 10:15 AM EDT Hypomagnesemia HEMOGLOBIN A1C Routine 04/02/2025 10:15 AM EDT Hypokalemia Hypomagnesemia POCT GLUCOSE Routine 04/02/2025 9:54 AM EDT Type 2 diabetes mellitus without complication, without long-term current use of insulin ([facility]) BI MAMMOGRAM SCREENING TOMOSYNTHESIS BILATERAL Routine 05/29/2024 11:38 AM EDT ALBUMIN, RANDOM URINE W/CREATININE Routine 01/18/2024 8:56 AM EDT Type 2 diabetes mellitus without complication, without long-term current use of insulin ([facility]) HM COLONOSCOPY Routine 05/09/2019 from Last 3 Months or Most Recently Relevant to Health Maintenance Results * (ABNORMAL) Drug Monitoring, Panel 1, Screen, Urine (05/09/2025 9:37 AM EDT) Opiate Screen Urine Not Detected Not Detect [facility] Comment:Opiate cut-off is 30 0 ng/mL.Positive results are unconfirmed and should not be used fornon-medical purposes. Barbiturates, Urine Not Detected Not Detect [facility] Comment:Barbiturate cut-off is 200 ng/mL.Positive results are unconfirmed and should not be used fornon-medical purposes. Phencyclidine Screen Urine Not Detected Not Detect [facility] Comment:Phencyclidine cut-of f is 25 ng/mL.Positive results are unconfirmed and should not be used fornon-medical purposes. Amphetamine Screen Urine Not Detected Not Detect [facility] Comment:Amphetamine cut-off is 1000 ng/mL.Positive results are unconfirmed and should not be used fornon-medical purposes. Benzodiazepines Screen Urine POSITIVE(A) Not Detect [facility] Comment:Benzodiazepine cut-o ff is 200 ng/mL.Positive results are unconfirmed and should not be used fornon-medical purposes. Cocaine Screen Urine Not Detected Not Detect [facility] Comment:Cocaine cut-off is 3 00 ng/mL.Positive results are unconfirmed and should not be used fornon-medical purposes. Cannabinoid Screen Urine Not Detected Not Detect [facility] Comment:Cannabinoid cut-off is 50 ng/mL.Positive results are unconfirmed and should not be used fornon-medical purposes. Methadone Screen, Urine Not Detected Not Detect ng/mL [facility] Comment:Methadone cut-off is 300 ng/mL.Positive results are unconfirmed and should not be used fornon-medical purposes. FENTANYL URINE Not Detected Not Detect [facility] Comment:Fentanyl cut-off is 1 ng/mL.Positive results are unconfirmed and should not be used fornon-medical purposes. Oxycodone Urine Screen Not Detected Not Detect ng/mL [facility] Comment:Oxycodone cut-off is 100 ng/mL.Positive results are unconfirmed and should not be used fornon-medical purposes. Buprenorphine Screen Not Detected Not Detect ng/mL [facility] Comment:Buprenorphine cut-of f is 5 ng/mL.Positive results are unconfirmed and should not be used fornon-medical purposes. 05/09/2025 9:37 AM EDT 05/09/2025 9:40 AM EDT us Generic External Data Provider LAB URINE ORDERAB LES Final Result Performing Organization Address [facility] Co de Phone Number [facility] [address] [place] [address] [phone] * (ABNORMAL) Urinalysis Complete (05/09/2025 9:37 AM EDT) Color Urine Yellow [facility] Appearance Urine Clear [facility] PH 7.0 5.0 - 9.0 [facility] Glucose Urine UA 100(A) Negative mg/dL [facility] Urine Blood Negative Negative [facility] Specific [place] - Urine 1.015 1.005 - 1.025 [facility] Urine Protein Trace Neg-Trace mg/dL [facility] Urine Ketones >=160 Negative mg/dL [facility] Nitrite Urine Negative Negative [facility] Leukocyte Esterase Urine Trace(A) Negative [facility] RBC Urine 0-2 0 - 2 /HPF [facility] Urine WBC 0-5 0 - 5 /HPF [facility] Urine Squamous Epithelial Cell 0-2 0 - 2 /HPF [facility] Urine Bacteria None Seen None Seen [facility] Hyaline Casts, Urine 0-2 0 - 2 /LPF [facility] 05/09/2025 9:37 AM EDT 05/09/2025 9:40 AM EDT us Generic External Data Provider LAB URINE ORDERAB LES Final Result Performing Organization Address [facility]/ZIP Co de Phone Number [facility] [address] [place] [address] [phone] * Lipid Panel with Reflex to Direct LDL (04/02/2025 10:15 AM EDT) Triglycerides 145 <150 mg/dL [facility] Comment:Desirable Triglyceri de: less than 150 mg/dLBorderline High Triglyceride 150-199 mg/dLHigh Triglyceride: 200-499 mg/dLVery High Triglyceride: greater than or equal to 5OO mg/dL Cholesterol 167 <200 mg/dL [facility] Comment:Desirable Cholestero l: less than 200 mg/dLBorderline High Cholesterol: 200-239 mg/dLHigh Cholesterol: greater than 239 mg/dL LDL Cholesterol Calculated 81 <100 mg/dL [facility] Comment:Desirable LDL: less than 100 mg/dLNear Optimal/Above Optimal LDL: 110- 129 mg/dLBorderline High LDL: 130-159 mg/dLHigh LDL: 160-189 mg/dLVery High LDL: greater than or equal to 190 mg/dL HDL Cholesterol 57 >40 mg/dL [facility] Comment:Desirable HDL: great er than 40 mg/dL Note: This HDL assay may give artificially low results in patients with liver disease. 04/02/2025 10:1 5 AM EDT 04/02/2025 11:25 AM EDT Ham Hay MD LAB BLOOD ORDERABLES Final Resul t Performing Organization Address City/[facility]/ZIP Co de Phone Number [facility] [address] [place] [phone] * Magnesium (04/02/2025 10:15 AM EDT) Magnesium 2.3 1.6 - 2.6 mg/dL [facility] Blood Venous blood specimen / Unknown 04/02/2025 10:15 AM EDT 04/02/2025 11:28 AM EDT Perfecto Pat MD LAB BLOOD ORDERABLES Final Resul t Performing Organization Address City/[facility]/ZIP Co de Phone Number [facility] [address] [place] [phone] * (ABNORMAL) Hemoglobin A1c (04/02/2025 10:15 AM EDT) Hemoglobin A1c 6.4(H) <6.0 % [facility] Comment:Hemoglobin A1C Refer ence Range Adults: 4.8 - 6.0 % Non diabetic: < 6.0 % Goal: < 7.0 %Additional Action Suggested: > 8.0 %Note: Hemoglobin A1c results are invalid for patients with abnormal amounts of HbF. Blood transfusions may impact the HbA1c concentration in the patient sample. Estimated Average Glucose 137 mg/dL [facility] Comment:eAG = Estimated ave rage glucose which is %A1C expressed asaverage glucose, using the formula of the X8S-KzgckcoPepeycz Glucose study (ADAG), Diabetes Care, Vol.31,#8,Mar. 2007 Blood Venous blood specimen / Unknown 04/02/2025 10:15 AM EDT 04/02/2025 11:28 AM EDT us Perfecto Pat MD LAB BLOOD ORDERABLES Final Resul t [facility] [address] [place] [phone] [phone] * (ABNORMAL) Comprehensive Metabolic Panel (04/02/2025 10:15 AM EDT) Sodium 141 135 - 145 mmol/L [facility] Potassium 4.1 3.3 - 5.1 mmol/L [facility] Chloride 102 96 - 108 mmol/L [facility] Carbon Dioxide 30(H) 22 - 29 mmol/L [facility] Anion Gap 13 12 - 20 [facility] Urea Nitrogen (BUN) 15 9 - 16 mg/dL [facility] Creatinine, Serum 1.19 0.5 - 1.4 mg/dL [facility] Estimated Glomerular Filt Rate 45 [facility] Comment:Chronic Kidney Disea se: Estimated GFR < 60 mL/min/1.44k1Jsohzt Kidney Disease: Estimated GFR < 15 mL/min/1.73m2 Glucose 163(H) 60 - 115 mg/dL [facility] Calcium 9.7 8.4 - 10.2 mg/dL [facility] Bilirubin, Total 0.3 0.0 - 1.0 mg/dL [facility] Aspartate Amino Transferase 21 5 - 31 U/L [facility] Alanine Aminotransferase 23 0 - 31 U/L [facility] Total Protein 6.7 6.5 - 8.0 g/dL [facility] Albumin Level 4.3 3.5 - 5.0 g/dL [facility] Alkaline Phosphatase 115 39 - 117 U/L [facility] 04/02/2025 10:1 5 AM EDT 04/02/2025 11:28 AM EDT us Ham Hay MD LAB BLOOD ORDERABLES Final Resul t [facility] [address] [place] [phone] [phone] * POCT Glucose (04/02/2025 9:54 AM [...] AM EDT Narrative 06/09/2024 10:51 AM EDT [address] [place] [address] Mammography Report Signed Patient: Makenna Ortiz MR#: [id number] : 1955 Acct:[id number] Age/Sex: 69 / F ADM Date: 05/29/24 Loc: HO.MAMMO Attending Dr: Ham Hay MD Ordering Physician: Ham Hay MD Results: 1Negative Date of Service: 05/29/24 Follow Up: 1 Year From Orig inal Mammogram Procedure(s): MM tomosynthesis screening BI Accession Number(s): [id number] cc: Ham Hay MD EXAMINATION: MM SCREENING [...] Margi Bird DO 06/09/2024 10:48 AM EDT RP Dictated By: Margi Bird DO Signed By: <Electronically signed by Margi Bird DO in OV> 06/09/24 1048 DD/ 1138 TD/TT: 05/29/24 1153 Tests Superintendent: Procedure Note Donotuseinterpreter, Image - 06/09/2024 [facility] [address] [place] [address] Mammography Report Signed Patient: Katelin Ortiz#: [id number] : 7Acct:[id number] Age/Sex: 69 / FADM Date: 05/29/24 Loc: [facility] Attending Dr: Ham Hay MD Ordering Physician: Ham Hay MDResults: 1Negative Date of Service: 05/29/24Follow Up: 1 Year From Orig inal Mammogram Procedure(s): MM tomosynthesis screening BI Accession Number(s): [id number] cc: Ham Hay MD EXAMINATION: MM SCREENING [...] Margi Bird DO 06/09/2024 10:48 AM EDT RP Dictated By: Margi Bird DO Signed By: <Electronically signed by Margi Bird DO in OV> 06/09/24 1048 DD/ 1138 TD/TT: 05/29/24 1153 Tests Superintendent: Ham Hay MD IMG BI PROCEDURES Edited Result - Final * Albumin, Random Urine W/Creatinine (01/18/2024 8:56 AM EDT) Creatinine, Urine 239.15 mg/dL [facility] Microalbumin Urine 18.0 mg/L [facility] Microalbum Creatinine Ratio Ur 7.5 <30 ug/mg cr [facility] Comment:Albumin/Creatinine R atio Reference Ranges: Normal: < 30 ug/mg creatinine Microalbuminuria: 30 - 300 ug/mg creatinineClinical Albuminuria: > 300 ug/mg creatinine Urine (Urine, Random) 01/18/2024 8:56 AM EDT 01/18/2024 11:08 AM EDT Ham Hay MD LAB URINE ORDERABLES Final Resul t [facility] [address] [place] [phone] * (ABNORMAL) Hm Colonoscopy (05/09/2019) Colonoscopy Abnormal(A ) Normal [facility] External Provider HEALTH MAINTENANCE Final Result from Last 3 Months or Most Recently Relevant to Health Maintenance Insurance [facility] LONGTERM OPTIONS (HMO D-SNP) [place] [id number] Care Teams Automatic Clipper Relationship Specialty Start Date End Date Name, MD Ham [address] [place] [address] PCP - General Family Medicine 01/28/16 Marya Echavarria PharmD [address] [place] [address] Pharmacist Internal Medicine 01/11/25
--- OUTSIDE RECORDS SUMMARY | 2025-05-10 16:48 | XMS_ITS | Patient Health Record ---
Author Organization [facility] Address [address] [place] [address] Care Team Providers Care Engineer Sergeant Name Role Phone Dragan Tejeda Jr Reason For Referral No Information Plan Of Treatment No Information
--- OUTSIDE RECORDS SUMMARY | 2025-05-10 16:48 | XMS_ITS | Encounter Summary ---
Author Organization [employer] Address [address] 7[address] [place] [address] Care Team Providers Care Oem Sales Manager Name Role Phone Name, Ham HERRING Primary Care Provider [phone] Marya Echavarria PharmD Unavailable Reason for Visit * Reason Comments Med Refill Encounter Details Date Type Department Care Team ([facility] st Contact Info) Description 04/18/2024 Refill [facility] [address] [place], [place] [phone] Name, MD Ham [address] [place] [address] Acute herpes zoster neuropathy Social History Tobacco [...] Description 05/16/2025 10:30 AM EDT Medication Management [facility] MEDIC[facility] [address] [place] [phone] Marya Echavarria PharmD [address] [place] [address] 06/26/2025 1:00 PM EST Office Visit [facility] OPTOMETRY [address] [place] [phone] Sabrina Wilson, OD [address] [place] [address] 06/27/2025 11:15 AM EST Office Visit [facility] MED[facility]INE [address] [place] [phone] NameHam MD [address] [place] [address] documented as of this encounter Visit Diagnoses Diagnosis Acute herpes zoster neuropathy documented in this encounter Additional Health Concerns Assessment Noted Time PHQ-9 Depression Total Score: 11 024 3:36 PM EDT documented as of this encounter Care Teams Oem Sales Manager Relationship Specialty Start Date End Date Ham Hay MD [address] [place] [phone] PCP - General Family Medicine 01/28/16 Marya Echavarria, PharmD [address] [place] [address] Pharmacist Internal Medicine 01/11/25 documented as of this encounter
--- OUTSIDE RECORDS SUMMARY | 2025-05-10 16:48 | XMS_ITS | Encounter Summary ---
Author Organization [employer] Address [address] [place] [address] 7t [place] [address] Care Team Providers Care Radio Tower Technician Name Role Phone Name, Ham HERRING Primary Care Provider [phone] Marya Echavarria PharmD Unavailable [phone] Reason for Visit * Reason Comments Med Refill Encounter Details Date Type Department Care Team ([facility] st Contact Info) Description 05/30/2024 Refill [facility] [address] [place] [address] Name, MD Ham [address] [place] [address] Social History Tobacco Use Types Packs/Day Years [...] Description 05/16/2025 10:30 AM EDT Medication Management [facility] [address] [place] [phone] Marya Echavarria PharmD [address] [place] [address] 06/26/2025 1:00 PM EST Office Visit [facility] OPTOMETRY [address] [place] [phone] Sabrina Wilson, OD [address] [place] [address] 06/27/2025 11:15 AM EST Office Visit [facility] [address] [place] [phone] NameHam MD [address] [place] [address] documented as of this encounter Visit Diagnoses Not on filedocumented in this encounter Additional Health Concerns Assessment Noted Time PHQ-9 Depression Total Score: 24 024 11:40 AM EDT documented as of this encounter Care Teams Radio Tower Technician Relationship Specialty Start Date End Date Ham Hay MD [address] [place] [phone] PCP - General Family Medicine 01/28/16 Marya Echavarria, LaurieD [address] [place] [phone] Pharmacist Internal Medicine 01/11/25 documented as of this encounter
--- OUTSIDE RECORDS SUMMARY | 2025-05-10 16:48 | XMS_ITS | Encounter Summary ---
Author Organization [employer] Address [address] [place] [address] 7t [place] [address] Care Team Providers Care Inspector Sheet Metal Parts Name Role Phone Name, Ham HERRING Primary Care Provider [phone] Marya Echavarria PharmD Unavailable [phone] Reason for Visit * Reason Onset Date Comments FYI 04/21/2024 Encounter Details Date Type Department Care Team ([facility] st Contact Info) Description 04/21/2024 Telephone [facility] [address] [place] [address] Name, MD Ham [address] [place] [address] FYI Social History Tobacco Use Types Packs/Day [...] - 04/21/2024 3:49 PM EDT Tc from [facility] calling to inform pcp pt has been admitted into hospital. If any questions you can contact [facility] at [phone]. documented in this encounter Plan of Treatment Upcoming Encounters Date Type Department Care Team (Late st Contact Info) Description 05/16/2025 10:30 AM EDT Medication Management [facility] [address] [place] [address] Marya Echavarria, PharmD [address] [place] [phone] 06/26/2025 1:00 PM EST Office Visit [facility] [address] [place] [address] Sabrina Wilson, OD [address] [place] [address] 06/27/2025 11:15 AM EST Office Visit [facility] [address] [place] [address] Name, MD Ham [address] [place] [address] documented as of this encounter Visit Diagnoses Not on filedocumented in this encounter Additional Health Concerns Assessment Noted Time PHQ-9 Depression Total Score: 11 10/31/ 024 3:36 PM EDT documented as of this encounter Care Teams Inspector Sheet Metal Parts Relationship Specialty Start Date End Date Name, MD Ham [address] [place] [address] PCP - General Family Medicine 01/28/16 Marya Echavarria PharmD [address] [place] [address] Pharmacist Internal Medicine 01/11/25 documented as of this encounter
--- OUTSIDE RECORDS SUMMARY | 2025-05-10 16:49 | XMS_ITS | Encounter Summary ---
Author Organization [employer] Address [address] [place] [address] 7t [place] [address] Care Team Providers Care Chiropractic Physician Name Role Phone Name, Ham HERRING Primary Care Provider [phone] Marya Echavarria PharmD Unavailable [phone] Reason for Visit * Reason Comments Med Refill Encounter Details Date Type Department Care Team ([facility] st Contact Info) Description 12/28/[address] [facility] [address] [place] [address] Ofelia Blum MD [address] [place] [address] [employer] Social History Tobacco Use Types Packs/Day [...] 10:30 AM EDT Medication Management [facility] MED[facility]INE [address] [place] [phone] Marya Echavarria, PharmD [address] [place] [address] 06/26/2025 1:00 PM EST Office Visit [facility] OPTOMETRY [address] [place] [address] TarkaSabrina, OD [address] [place] [address] 06/27/2025 11:15 AM EST Office Visit [facility] [address] [place] [phone] Ham Hay MD [address] [place] [address] documented as of this encounter Visit Diagnoses Diagnosis [employer] Other specified erythematous condition documented in this encounter Additional Health Concerns Assessment Noted Time PHQ-9 Depression Total Score: 24 024 11:40 AM EDT documented as of this encounter Care Teams Chiropractic Physician Relationship Specialty Start Date End Date Ham Hay MD [address] [place] [address] PCP - General Family Medicine 01/28/16 Marya cEhavarria PharmD [address] [place] [address] Pharmacist Internal Medicine 01/11/25 documented as of this encounter
--- OUTSIDE RECORDS SUMMARY | 2025-05-10 16:49 | XMS_ITS ---
Author Name [facility] Organization Unknown Results Test Name/Text Value Interpretation Date Range Source Troponin I SerPl HS-mCnc 4.0 ng/L 05/08/2025 0 - 14 [facility] Ethanol SerPl-mCnc <10.0 mg/dL 05/08/2025 0 - 10 [facility] Phosphate SerPl-mCnc 3.1 mg/dL 05/08/2025 2.5 - 4. 5 [facility] Magnesium SerPl-mCnc 2.1 mg/dL 05/08/2025 1.7 - 2. 8 [facility] BUN SerPl-mCnc 15.0 mg/dL 05/08/2025 7 - 17 [facility] Chloride SerPl-sCnc 108.0 mmol/L Above high normal 98 - 107 [facility] Anion Gap SerPl Calc-sCnc 12.0 05/08/2025 5 - 14 [facility] BUN/Creat SerPl 13.6 05/08/2025 12 - 20 [facility] Glucose SerPl-mCnc 112.0 mg/dL 05/08/2025 70 - 199 [facility] ALP SerPl-cCnc 94.0 unit/L 05/08/2025 34 - 104 [facility] Creat SerPl-mCnc 1.1 mg/dL Above high normal 05/08/2025 0.5 - 1 [facility] ALT SerPl-cCnc 16.0 unit/L 05/08/2025 7 - 52 [facility] AST SerPl-cCnc 18.0 unit/L 05/08/2025 5 - 40 [facility] Potassium SerPl-sCnc 3.3 mmol/L Below low normal 05/08/2025 3.5 - 5.1 [facility] eGFRcr SerPlBld CKD-EPI 2020 55.0 mL/min/1.73m2 Below low normal 05/08/2025 - [facility] Albumin SerPl-mCnc 4.1 g/dL 05/08/2025 3.5 - 5 [facility] Calcium SerPl-mCnc 8.2 mg/dL Below low normal 05/08/2025 8.4 - 10.2 [facility] CO2 SerPl-sCnc 24.0 mmol/L 05/08/2025 24 - 32 [facility] Bilirub SerPl-mCnc 0.4 mg/dL 05/08/2025 0.3 - 1 [facility] Prot SerPl-mCnc 6.4 g/dL 05/08/2025 6.4 - 8.5 [facility] Sodium SerPl-sCnc 144.0 mmol/L 05/08/2025 135 - 14 5 [facility] MCH RBC Qn Auto 25.6 pcg 05/08/2025 25 - 33 [facility] Neutrophils NFr Bld Auto 69.8 % 05/08/2025 44 - 74 [facility] Monocytes # Bld Auto 0.3 K/mcL 05/08/2025 0 - 0.8 [facility] RBC # Bld Auto 4.58 M/mcL 05/08/2025 4.2 - 5.4 [facility] RBC Auto 77.3 FL Below low normal 05/08/2025 78 - 100 CT [facility] Platelet # Bld Auto 233.0 K/mcL 05/08/2025 150 - 4 50 [facility] Basophils # Bld Auto 0.0 K/mcL 05/08/2025 0 - 0.2 [facility] MCHC RBC Auto-EntMCnc 33.0 g/dL 05/08/2025 32 - 36 [facility] PMV Bld Auto 8.8 FL 05/08/2025 7.4 - 11.4 [facility] Eosinophil NFr Bld Auto 0.4 % 05/08/2025 0 - 6 [facility] Lymphocytes NFr Bld Auto 24.3 % 05/08/2025 20 - 48 [facility] WBC # Bld Auto 6.4 K/mcL 05/08/2025 4 - 10.5 [facility] Hgb Bld-mCnc 11.7 g/dL Below low normal 05/08/2025 12.5 - 16 [facility] Lymphocytes # Bld Auto 1.6 K/mcL 05/08/2025 1 - 3.2 [facility] Hct VFr Bld Auto 35.4 % Below low normal 05/08/2025 37 - 47 [facility] Basophils NFr Bld Auto 0.2 % 05/08/2025 0 - 2 [facility] RDW RBC Auto 13.4 % 05/08/2025 12.1 - 16.2 [facility] Monocytes NFr Bld Auto 5.3 % 05/08/2025 2 - 12 [facility] Neutrophils # Bld Auto 4.5 K/mcL 05/08/2025 1.8 - 7.8 [facility] Eosinophil # Bld Auto 0.0 K/mcL 05/08/2025 0 - 0.5 [facility] Lactate Bld-sCnc 2.0 mmol/L 05/08/2025 0.5 - 2.2 C [facility] Glucose Bld-mCnc 161.0 mg/dL 05/08/2025 70 - 199 [facility] Encounters Encounter Type Encounter Reason Primary Diagnosis Location Date Emergency [facility] Care Team Organization Name Specialty Phone Email Start Date End [facility] 05/08/2025 [facility] NO PHYSICIAN Primary Care 05/08/2025 [facility] 05/08/2025
--- OUTSIDE RECORDS SUMMARY | 2025-05-10 16:49 | XMS_ITS | Encounter Summary ---
Author Organization [employer] Address [address] [place] [address] 7t [place] [address] Care Team Providers Care Field Consultant Name Role Phone Name, Ham HERRING Primary Care Provider [phone] Marya Echavarria PharmD Unavailable [phone] Encounter Details Date Type Department Care Team (Late Contact Info) Description 10/27/2022 Orders Only [facility] [address] [place], [place] [phone] Amber Everett LPN Social History Tobacco Use [...] Description 05/16/2025 10:30 AM EDT Medication Management [facility] [address] [place] [address] Marya Echavarria, PharmD [address] [place] [address] 06/26/2025 1:00 PM EST Office Visit [facility] [address] [place], [place] [phone] Sabrina Wilson, OD [address] [place] [address] 06/27/2025 11:15 AM EST Office Visit [facility] [address] [place] [address] Name, MD Ham [address] [place] [address] documented as of this encounter Visit Diagnoses Not on filedocumented in this encounter Care Teams Field Consultant Relationship Specialty Start Date End Date Name, MD Ham [address] [place] [address] PCP - General Family Medicine 01/28/16 Marya Echavarria PharmD [address] [place] [phone] Pharmacist Internal Medicine 01/11/25 documented as of this encounter
--- OUTSIDE RECORDS SUMMARY | 2025-05-10 16:49 | XMS_ITS | Encounter Summary ---
Author Organization [employer] Address [address] [facility] 7t [place] [address] Care Team Providers Care Potline Monitor Name Role Phone Name, Ham HERRING Primary Care Provider [phone] Marya Echavarria PharmD Unavailable [phone] Reason for Visit * Reason Comments Med Refill Encounter Details Date Type Department Care Team ([facility] st Contact Info) Description 03/29/2025 Refill [facility] MED[facility] [address] [place] [address] Name, MD Ham [address] [place] [address] Social History Tobacco Use Types Packs/Day Years [...] 10:30 AM EDT Medication Management [facility] [address] [place] [address] Marya Echavarria, PharmD [address] [place] [address] 06/26/2025 1:00 PM EST Office Visit [facility] OPT[facility] [address] [place] [address] Sabrina Wilson, OD [address] [place] [address] 06/27/2025 11:15 AM EST Office Visit [facility] [address] [place] [address] Ham Hay MD [address] [place] [phone] documented as of this encounter Visit Diagnoses Not on filedocumented in this encounter Additional Health Concerns Assessment Noted Time PHQ-9 Depression Total Score: 24 024 11:40 AM EDT documented as of this encounter Care Teams Potline Monitor Relationship Specialty Start Date End Date Ham Hay MD [address] [place] [address] PCP - General Family Medicine 01/28/16 Marya Echavarria, LaurieD [address] [place] [phone] Pharmacist Internal Medicine 01/11/25 documented as of this encounter
--- OUTSIDE RECORDS SUMMARY | 2025-05-10 16:49 | XMS_ITS | Clinical Summary ---
Author Organization [facility] Address [address] [place] [address] Phone Care Team Providers Care Rounding Machine Operator Name Role Phone Physician, No Pcp Primary [...] 05/08/2025 2:20 PM EDT Emergency [facility] [address] [place] [phone] Tee Campbell MD Weakness (Primary Dx); [...] with Reflex (05/08/2025 11:38 AM EDT) Pathologist [facility] LACTIC ACID 2.0 0.5 - 2.2 mmol/L LAB BLOOD GAS METHOD 05/08/2025 11:58 AM EDT [facility] Blood Venous blood specimen / Unknown Venipuncture / Unknown 05/08/2025 11:38 AM EDT 05/08/2025 11:50 AM EDT Tee Campbell MD LAB BLOOD ORDERABLES Final Result [facility] [address] [place] [address], [place] [phone] * Troponin I High Sensitivity (05/08/2025 11:38 AM EDT) [facility] High Sensitivity Troponin I 4 0 - 14 ng/L LAB CHEMISTRY METHOD 05/08/2025 12:29 PM EDT [facility] Blood Venous blood specimen / Unknown Venipuncture / Unknown 05/08/2025 11:38 AM EDT 05/08/2025 11:50 AM EDT Narrative [facility] - 05/08/2025 12:29 PM EDT [...] method is an immunoenzymatic assay manufactured by [employer] and performed on the [facility] DxI 800. Tee Campbell MD LAB BLOOD ORDERABLES Final Result [facility] [address] [place] [address], [place] [phone] * (ABNORMAL) CBC auto differential (05/08/2025 11:38 AM EDT) [facility] WBC 6.4 4.0 - 10.5 K/mcL LAB HEMETOLOGY METHOD 05/08/2025 12:02 PM EDT [facility] RBC 4.58 4.20 - 5.40 M/mcL LAB HEMETOLOGY METHOD 05/08/2025 12:02 PM EDT [facility] Hemoglobin 11.7(L) 12.5 - 16.0 g/dL LAB HEMETOLOGY METHOD 05/08/2025 12:02 PM EDT [facility] Hematocrit 35.4(L) 37.0 - 47.0 % LAB HEMETOLOGY METHOD 05/08/2025 12:02 PM EDT [facility] MCV 77.3(L) 78.0 - 100.0 FL LAB HEMETOLOGY METHOD 05/08/2025 12:02 PM EDT [facility] MCH 25.6 25.0 - 33.0 pcg LAB HEMETOLOGY METHOD 05/08/2025 12:02 PM EDT [facility] MCHC 33.0 32.0 - 36.0 g/dL LAB HEMETOLOGY METHOD 05/08/2025 12:02 PM EDT [facility] RDW 13.4 12.1 - 16.2 % LAB HEMETOLOGY METHOD 05/08/2025 12:02 PM EDT [facility] Platelets 233 150 - 450 K/mcL LAB HEMETOLOGY METHOD 05/08/2025 12:02 PM EDT [facility] MPV 8.8 7.4 - 11.4 FL LAB HEMETOLOGY METHOD 05/08/2025 12:02 PM EDT [facility] Neutrophils Relative 69.8 44.0 - 74.0 % LAB HEMETOLOGY METHOD 05/08/2025 12:02 PM EDT [facility] Lymphocytes Relative 24.3 20.0 - 48.0 % LAB HEMETOLOGY METHOD [facility] Monocytes Relative 5.3 2.0 - 12.0 % LAB HEMETOLOGY METHOD 05/08/2025 [facility] Eosinophils Relative 0.4 0.0 - 6.0 % LAB HEMETOLOGY METHOD 05/08/2025 12:02 PM EDT [facility] Basophils Relative 0.2 0.0 - 2.0 % LAB HEMETOLOGY METHOD 05/08/2025 12:02 PM EDT [facility] Neutrophils Absolute 4.50 1.80 - 7.80 K/mcL LAB HEMETOLOGY METHOD 05/08/2025 12:02 PM EDT [facility] Lymphocytes Absolute 1.60 1.00 - 3.20 K/mcL LAB HEMETOLOGY METHOD 05/08/2025 12:02 PM EDT [facility] Monocytes Absolute 0.30 0.00 - 0.80 K/mcL LAB HEMETOLOGY METHOD 05/08/2025 12:02 PM EDT [facility] Eosinophils Absolute 0.00 0.00 - 0.50 K/mcL LAB HEMETOLOGY METHOD 05/08/2025 12:02 PM [facility] Basophils Absolute 0.00 0.00 - 0.20 K/mcL LAB HEMETOLOGY METHOD 05/08/2025 12:02 PM [facility] Blood Venous blood specimen / Unknown Venipuncture / Unknown 05/08/2025 11:38 AM EDT 05/08/2025 11:50 AM EDT Tee Campbell MD LAB BLOOD ORDERABLES Final Result Performing Organization Address City[facility]/ZIP Co de Phone Number [facility] [address] [place] [address], * Phosphorus (05/08/2025 11:38 AM EDT) Phosphorus 3.1 2.5 - 4.5 mg/dL LAB CHEMISTRY METHOD 05/08/2025 12:27 PM EDT [facility] Blood Venous blood specimen / Unknown Venipuncture / Unknown 05/08/2025 11:38 AM EDT 05/08/2025 11:50 AM EDT Tee Campbell MD LAB BLOOD ORDERABLES Final Result Performing Organization Address [facility]/ZIP Co de Phone Number [facility] [address] [place] [address], * Magnesium (05/08/2025 11:38 AM EDT) Magnesium 2.1 1.7 - 2.8 mg/dL LAB CHEMISTRY METHOD 05/08/2025 12:27 PM EDT [facility] Blood Venous blood specimen / Unknown Venipuncture / Unknown 05/08/2025 11:38 AM EDT 05/08/2025 11:50 AM EDT Tee Campbell MD LAB BLOOD ORDERABLES Final Result Performing Organization Address [facility]/ZIP Co de Phone Number [facility] [address] [place] [address], [place] [phone] * Ethanol (05/08/2025 11:38 AM EDT) Ethanol Level <10 0 - 10 mg/dL LAB CHEMISTRY METHOD 05/08/2025 12:27 PM EDT [facility] Blood Venous blood specimen / Unknown Venipuncture / Unknown 05/08/2025 11:38 AM EDT 05/08/2025 11:50 AM EDT Narrative [facility] - 05/08/2025 12:27 PM EDT Medical Purpose Results of this test are to be used for medical purposes only us Tee Campbell MD LAB BLOOD ORDERABLES Final Result [facility] [address] [place] [address], [place] [phone] * (ABNORMAL) Comprehensive Metabolic Panel (CMP) (05/08/2025 11:38 AM EDT) Sodium 144 135 - 145 mmol/L LAB CHEMISTRY METHOD 05/08/2025 12:27 PM EDT [facility] Potassium 3.3(L) 3.5 - 5.1 mmol/L LAB CHEMISTRY METHOD 05/08/2025 12:27 PM EDT [facility] Chloride 108(H) 98 - 107 mmol/L LAB CHEMISTRY METHOD 05/08/2025 12:27 PM EDT [facility] CO2 24 24 - 32 mmol/L LAB CHEMISTRY METHOD 05/08/2025 12:27 PM EDT [facility] Anion Gap 12 5 - 14 LAB CHEMISTRY METHOD 05/08/2025 12:27 PM EDT [facility] Glucose 112 70 - 199 mg/dL LAB CHEMISTRY METHOD 05/08/2025 12:27 PM EDT [facility] BUN 15 7 - 17 mg/dL LAB CHEMISTRY METHOD 05/08/2025 12:27 PM EDT [facility] Creatinine 1.10(H) 0.50 - 1.00 mg/dL LAB CHEMISTRY METHOD 05/08/2025 12:27 PM EDT [facility] eGFR 55(L) >=60 mL/min/1. 73m2 LAB CHEMISTRY METHOD 05/08/2025 12:27 PM EDT [facility] Comment:Calculation based on the Chronic Kidney Disease Epidemiology Collaboration (CKD-EPI) equation refit without adjustment for race. BUN/Creatinine Ratio 13.6 12.0 - 20.0 LAB CHEMISTRY METHOD 05/08/2025 12:27 PM EDT [facility] Calcium 8.2(L) 8.4 - 10.2 mg/dL LAB CHEMISTRY METHOD 05/08/2025 12:27 PM EDT [facility] AST (SGOT) 18 5 - 40 unit/L LAB CHEMISTRY METHOD 05/08/2025 12:27 PM EDT [facility] ALT (SGPT) 16 7 - 52 unit/L LAB CHEMISTRY METHOD 05/08/2025 12:27 PM EDT [facility] Alkaline Phosphatase 94 34 - 104 unit/L LAB CHEMISTRY METHOD 05/08/2025 12:27 PM EDT [facility] Total Protein 6.4 6.4 - 8.5 g/dL LAB CHEMISTRY METHOD 05/08/2025 12:27 PM EDT [facility] Albumin 4.1 3.5 - 5.0 g/dL LAB CHEMISTRY METHOD 05/08/2025 12:27 PM EDT [facility] Total Bilirubin 0.4 0.3 - 1.0 mg/dL LAB CHEMISTRY METHOD 05/08/2025 12:27 PM EDT [facility] Blood Venous blood specimen / Unknown Venipuncture / Unknown 05/08/2025 11:38 AM EDT 05/08/2025 11:50 AM EDT us Tee Campbell MD LAB BLOOD ORDERABLES Final Result [facility] [address] [place] [address], [place] [phone] * POCT Glucose, blood (05/08/2025 10:21 AM EDT) Glucose POCT 161 70 - 199 mg/dL 05/08/2025 10:22 AM EDT [facility] Comment: Fasting Reference Range: 70-99 mg/dL Non-Fasting Reference Range: 70-199 mg/dL Blood Capillary blood specimen / Unknown 05/08/2025 10:21 AM EDT 05/08/2025 10:23 AM EDT us Tee Campbell MD LAB POINT OF CARE T EST DOCKED DEVICE UNSOLICITED RESULTS Final Result [facility] [address] [place] [address], [place] [phone] from Last 3 Months Insurance MEDICAID - [place] [facility] MEDIC[facility] Member Subscriber Plan / Payer (Ef fective 2023-Present) Name:MALLORY GUERRERO Relation to Subscriber:Self Name:Mallory Guerrero Payer ID:[id number] Group ID:[id number] Type:Not on file Address: [address] [place] [address] Care Teams Rounding Machine Operator Relationship Specialty Start Date End Date Physician, No Pcp PCP - General 05/08/25
--- OUTSIDE RECORDS SUMMARY | 2025-05-10 16:49 | XMS_ITS | Encounter Summary ---
Author Organization [employer] Address [address] [facility] 7t [place] [address] Care Team Providers Care Assistant Grocery Store Manager Name Role Phone Name, Ham HERRING Primary Care Provider [phone] Marya Echavarria PharmD Unavailable [phone] Encounter Details Date Type Department Care Team (Late st Contact Info) Description 05/09/2025 Orders Only GENERIC EXTERNAL DATA [...] AM EDT Medication Management [facility] MEDICINE [address] [place] [address] Marya Echavarria, PharmD [address] [place] [address] 06/26/2025 1:00 PM EST Office Visit [facility] OPTOMETRY [address] [place] [address] Tarka, Sabrina, OD [address] [place] [address] 06/27/2025 11:15 AM EST Office Visit [facility] [address] [place] [phone] Name, MD Ham [address] [place] [address] documented as of this encounter Procedures Procedure Name Priority Date/Time Associated Diagnosis Comments DRUG MONITOR, PANEL 1, SCREEN, URINE Routine 05/09/2025 9:37 AM EDT URINALYSIS, COMPLETE Routine 05/09/2025 9:37 AM EDT documented in this encounter Results * (ABNORMAL) Drug Monitoring, Panel 1, Screen, Urine (05/09/2025 9:37 AM EDT) Opiate Screen Urine Not Detected Not Detect [facility] Comment:Opiate cut-off is 30 0 ng/mL.Positive results are unconfirmed and should not be used fornon-medical purposes. Barbiturates, Urine Not Detected Not Detect [facility] Comment:Barbiturate cut-off is 200 ng/mL.Positive results are unconfirmed and should not be used fornon-medical purposes. Phencyclidine Screen Urine Not Detected Not Detect [facility] Comment:Phencyclidine cut-of f is 25 ng/mL.Positive results are unconfirmed and should not be used fornon-medical purposes. Amphetamine Screen Urine Not Detected Not Detect [facility] Comment:Amphetamine cut-off is 1000 ng/mL.Positive results are unconfirmed and should not be used fornon-medical purposes. Benzodiazepines Screen Urine POSITIVE(A) Not Detect [facility] Comment:Benzodiazepine cut-o ff is 200 ng/mL.Positive results are unconfirmed and should not be used fornon-medical purposes. Cocaine Screen Urine Not Detected Not Detect [facility] Comment:Cocaine cut-off is 3 00 ng/mL.Positive results are unconfirmed and should not be used fornon-medical purposes. Cannabinoid Screen Urine Not Detected Not Detect [facility] Comment:Cannabinoid cut-off is 50 ng/mL.Positive results are unconfirmed and should not be used fornon-medical purposes. Methadone Screen, Urine Not Detected Not Detect ng/mL [facility] Comment:Methadone cut-off is 300 ng/mL.Positive results are unconfirmed and should not be used fornon-medical purposes. FENTANYL URINE Not Detected Not Detect [facility] Comment:Fentanyl cut-off is 1 ng/mL.Positive results are unconfirmed and should not be used fornon-medical purposes. Oxycodone Urine Screen Not Detected Not Detect ng/mL [facility] Comment:Oxycodone cut-off is 100 ng/mL.Positive results are unconfirmed and should not be used fornon-medical purposes. Buprenorphine Screen Not Detected Not Detect ng/mL [facility] Comment:Buprenorphine cut-of f is 5 ng/mL.Positive results are unconfirmed and should not be used fornon-medical purposes. 05/09/2025 9:37 AM EDT 05/09/2025 9:40 AM EDT us Generic External Data Provider LAB URINE ORDERAB LES Final Result Performing Organization Address [facility] de Phone Number [facility] [address] [place] [phone] * (ABNORMAL) Urinalysis Complete (05/09/2025 9:37 AM EDT) Color Urine Yellow [facility] Appearance Urine Clear [facility] PH 7.0 5.0 - 9.0 [facility] Glucose Urine UA 100(A) Negative mg/dL [facility] Urine Blood Negative Negative [facility] Specific [place] - Urine 1.015 1.005 - 1.025 [facility] Urine Protein Trace Neg-Trace mg/dL [facility] Urine Ketones >=160 Negative mg/dL [facility] Nitrite Urine Negative Negative [facility] Leukocyte Esterase Urine Trace(A) Negative [facility] RBC Urine 0-2 0 - 2 /HPF [facility] Urine WBC 0-5 0 - 5 /HPF [facility] Urine Squamous Epithelial Cell 0-2 0 - 2 /HPF [facility] Urine Bacteria None Seen None Seen [facility] Hyaline Casts, Urine 0-2 0 - 2 /LPF [facility] 05/09/2025 9:37 AM EDT 05/09/2025 9:40 AM EDT us Generic External Data Provider LAB URINE ORDERAB LES Final Result Performing Organization Address [facility] Co de Phone Number [facility] [address] [place] [address] [phone] documented in this encounter Visit Diagnoses Not on filedocumented in this encounter Additional Health Concerns Assessment Noted Time PHQ-9 Depression Total Score: 5 04/02/ 9:52 AM EDT documented as of this encounter Care Teams Assistant Grocery Store Manager Relationship Specialty Start Date End Date Name, MD Ham [address] [place] [address] PCP - General Family Medicine 01/28/16 Marya Echavarria PharmD [address] [place] [address] Pharmacist Internal Medicine 01/11/25 documented as of this encounter
--- OUTSIDE RECORDS SUMMARY | 2025-05-10 16:49 | XMS_ITS | Encounter Summary ---
Author Organization [employer] Address [address] [place] [address] 7t [place] [address] Care Team Providers Care Music Critic Name Role Phone Name, Ham HERRING Primary Care Provider [phone] Marya Echavarria PharmD Unavailable [phone] Reason for Visit * Reason Comments Med Refill Encounter Details Date Type Department Care Team ([facility] st Contact Info) Description 08/25/2024 Refill [facility] MEDICINE [address] [place] [address] Name, MD Ham [address] [place] [address] Recurrent UTI Social History Tobacco Use Types [...] Description 05/16/2025 10:30 AM EDT Medication Management [facility] MEDICINE [address] [place] [address] Marya Echavarria, PharmD [address] [place] [address] 06/26/2025 1:00 PM EST Office Visit [facility] OPTOMETRY [address] [place] [address] Sabrina Wilson, OD [address] [place] [address] 06/27/2025 11:15 AM EST Office Visit [facility] MEDICINE [address] [place] [phone] NameHam MD [address] [place] [address] documented as of this encounter Visit Diagnoses Diagnosis Recurrent UTI Urinary tract infection, site not specified documented in this encounter Additional Health Concerns Assessment Noted Time PHQ-9 Depression Total Score: 24 024 11:40 AM EDT documented as of this encounter Care Teams Music Critic Relationship Specialty Start Date End Date Ham Hay MD [address] [place] [address] PCP - General Family Medicine 01/28/16 Marya Echavarria, PharmD [address] [place] [phone] Pharmacist Internal Medicine 01/11/25 documented as of this encounter
--- OUTSIDE RECORDS SUMMARY | 2025-05-10 16:49 | XMS_ITS | Encounter Summary ---
Author Organization [employer] Address [address] [place] [address] 7[address] [place] [address] Care Team Providers Care Adjunct Faculty Mathematics Department Name Role Phone Name, Ham HERRING Primary Care Provider [phone] Marya Echavarria PharmD Unavailable [phone] Encounter Details Date Type Department Care Team (Late st Contact Info) Description 07/14/2022 Abstract [facility] MEDICINE [address] [place] [id number] Provider, MD Meghan Social History Tobacco Use [...] 10:30 AM EDT Medication Management [facility] MEDICINE [address] [place] [address] Mraya Echavarria, PharmD [address] [place] [address] 06/26/2025 1:00 PM EST Office Visit [facility] OPTOMETRY [address] [place] [address] Sabrina Wilson, OD [address] [place] [address] 06/27/2025 11:15 AM EST Office Visit [facility] [address] [place] [address] Name, MD Ham [address] [place] [address] documented as of this encounter Visit Diagnoses Not on filedocumented in this encounter Care Teams Adjunct Faculty Mathematics Department Relationship Specialty Start Date End Date Name, MD Ham [address] [place] [address] PCP - General Family Medicine 01/28/16 Marya Echavarria, LaurieD [address] [place] [address] [id number] Pharmacist Internal Medicine 01/11/25 documented as of this encounter
--- OUTSIDE RECORDS SUMMARY | 2025-05-10 16:49 | XMS_ITS | Encounter Summary ---
Author Organization [employer] Address [address] [place] [address] 7 [place] [address] Care Team Providers Care Steam Drier Tender Name Role Phone Name, Ham HERRING Primary Care Provider [phone] Marya Echavarria PharmD Unavailable [phone] Reason for Visit * Reason Comments Med Refill Encounter Details Date Type Department Care Team (Late st Contact Info) Description 04/18/2023 Refill [facility] MEDICINE [address] [place] [address] Name, MD Ham [address] [place] [address] Social History Tobacco Use Types Packs/Day Years [...] Description 05/16/2025 10:30 AM EDT Medication Management [facility] MEDICINE [address] [place] [address] PuiaMalathisa, PharmD [address] [place] [address] 06/26/2025 1:00 PM EST Office Visit [facility] OPTOMETRY [address] [place] [address] Sabrina Wilson, OD [address] [place] [address] 06/27/2025 11:15 AM EST Office Visit [facility] MEDICINE [address] [place] [address] Name, MD Ham [address] [place] [address] documented as of this encounter Visit Diagnoses Not on filedocumented in this encounter Care Teams Steam Drier Tender Relationship Specialty Start Date End Date Name, MD Ham [address] [place] [address] PCP - General Family Medicine 01/28/16 Marya Echavarria PharmD [address] [place] [address] Pharmacist Internal Medicine 01/11/25 documented as of this encounter
--- OUTSIDE RECORDS SUMMARY | 2025-05-10 16:49 | XMS_ITS | Encounter Summary ---
Author Organization [employer] Address [address] [place] [address] 7 [place] [address] Care Team Providers Care Golf Ball Winder Name Role Phone Name, Ham HERRING Primary Care Provider [phone] Marya Echavarria PharmD Unavailable [phone] Reason for Visit * Reason Onset Date Comments Appointment Request 04/17/2025 Encounter Details Date Type Department Care Team ([facility] st Contact Info) Description 04/17/2025 Telephone [facility] MEDICINE [address] [place] [address] Name, MD Ham [address] [place] [address] Appointment Request Social History Tobacco Use Types [...] to reschedule CDTM apt Contact pt at [phone] (bhutanese) documented in this encounter Plan of Treatment Upcoming Encounters Date Type Department Care Team ([facility] st Contact Info) Description 05/16/2025 10:30 AM EDT Medication Management [facility] MEDICINE [address] [place] [address] Marya Echavarria, PharmD [address] [place] [address] 06/26/2025 1:00 PM EST Office Visit [facility] OPTOMETRY [address] [place] [address] Sabrina Wilson OD [address] [place] [address] 06/27/2025 11:15 AM EST Office Visit [facility] MEDICINE [address] [place] [address] Name, MD Ham [address] [place] [address] documented as of this encounter Visit Diagnoses Not on filedocumented in this encounter Additional Health Concerns Assessment Noted Time PHQ-9 Depression Total Score: 5 04/02/20 25 9:52 AM EDT documented as of this encounter Care Teams Golf Ball Winder Relationship Specialty Start Date End Date Name, MD Ham [address] [place] [address] PCP - General Family Medicine 01/28/16 Marya Echavarria PharmD [address] [place] [address] Pharmacist Internal Medicine 01/11/25 documented as of this encounter
--- OUTSIDE RECORDS SUMMARY | 2025-05-10 16:49 | XMS_ITS | Encounter Summary ---
Author Organization [employer] Address [address] [place] [address] 7t [place] [address] Care Team Providers Care Manufacturing Laborer Name Role Phone Name, Ham HERRING Primary Care Provider [phone] Marya Echavarria PharmD Unavailable [phone] Encounter Details Date Type Department Care Team (Late Contact Info) Description 01/19/2023 Abstract [facility] MEDICINE [address] [place] [address] Name, MD Ham [address] [place] [address] Social History Tobacco Use Types Packs/Day Years [...] 10:30 AM EDT Medication Management [facility] MEDICINE [address] [place] [address] Marya Echavarria, PharmD [address] [place] [address] 06/26/2025 1:00 PM EST Office Visit [facility] OPTOMETRY [address] [place] [address] Sabrina Wilson, OD [address] [place] [address] 06/27/2025 11:15 AM EST Office Visit [facility] MEDICINE [address] [place] [address] Name, MD Ham [address] [place] [address] documented as of this encounter Visit Diagnoses Not on filedocumented in this encounter Care Teams Manufacturing Laborer Relationship Specialty Start Date End Date Name, MD Ham [address] [place] [address] PCP - General Family Medicine 01/28/16 Marya Echavarria PharmD [address] [place] [address] Pharmacist Internal Medicine 01/11/25 documented as of this encounter
--- OUTSIDE RECORDS SUMMARY | 2025-05-10 16:49 | XMS_ITS | Encounter Summary ---
Author Organization [employer] Address [address] [place] [address] 7 [place] [address] Care Team Providers Care Qa Tech Name Role Phone Name, Ham HERRING Primary Care Provider [phone] Marya Echavarria PharmD Unavailable [phone] Reason for Visit * Reason Onset Date Comments Pre Op 10/04/2024 Encounter Details Date Type Department Care Team (Late st Contact Info) Description 10/04/2024 Telephone [facility] MEDICINE [address] [place] [address] Name, MD Ham [address] [place] [address] Pre Op Social History Tobacco Use Types [...] 11/07/24 Surgical procedure being done: Cistoscopy with Roy distention of the Blader Type of anesthesia: general anesthesia Lab needed: Yes EKG: Yes Surgeon's name: Dr. Hoffman Facility name: [facility] Surgeon's office number: [phone] Surgeon's office fax number: [phone] Contact name (person you spoke with): Xiomara Last office note from surgeon requested: No Send Message to Yajaira Ramírez and Orestes Allan documented in this encounter Plan of Treatment Upcoming Encounters Date Type Department Care Team (Late st Contact Info) Description 05/16/2025 10:30 AM EDT Medication Management [facility] MEDICINE [address] [place] [address] Marya Echavarria, PharmD [address] [place] [address] 06/26/2025 1:00 PM EST Office Visit [facility] OPTOMETRY [address] [place] [address] Sabrina Wilson, OD [address] [place] [address] 06/27/2025 11:15 AM EST Office Visit [facility] MEDICINE [address] [place] [address] Name, MD Ham [address] [place] [address] documented as of this encounter Visit Diagnoses Not on filedocumented in this encounter Additional Health Concerns Assessment Noted Time PHQ-9 Depression Total Score: 24 024 11:40 AM EDT documented as of this encounter Care Teams Qa Tech Relationship Specialty Start Date End Date Name, MD Ham [address] [place] [address] PCP - General Family Medicine 01/28/16 Marya Echavarria PharmD [address] [place] [address] Pharmacist Internal Medicine 01/11/25 documented as of this encounter
[2025-05-10 19:10] VITALS: BP 163/96; PULSE 80; RESP 16; TEMP 36.4; O2SAT 99
[2025-05-10 21:20] VITALS: BP 120/79; PULSE 90; RESP 16; TEMP 37; O2SAT 98
[2025-05-10 21:33] VITALS: BP 120/79
[2025-05-10 21:34] VITALS: BP 120/79
[2025-05-10] MEDS: Latanoprost 0.005 % Ophth Sol 2.5 ML DROPS 1 DROP EYE-BOTH (21:41)
[2025-05-10] MEDS: Brimonidine Tartrate 0.2% Oph 5 ML BOTTLE 1 DROP EYE-RIGHT (21:43)
[2025-05-10] MEDS: timoloL maleate 0.5 % Oph Sol 5 ML DRBTL 1 DROP EYE-RIGHT (21:44)
--- NOTE | 2025-05-11 04:32 | PC.ADMIT ---
Pt is a 69 yo female admitted to unit after referral from [facility]. Arrived on unit at 1907 on 05/10/25. Legal status: CV. Pt medical issues are HTN, DMII, anemia, chronic idiopathic constipation, diverticulitis, GERD, IBS, Ileus, celiac disease, pancreatitis. N-N states unable to void. Has outstanding urine labs due. Pt states has not eaten or drank in 4 days. Pt's last IPLOC was 2 years ago and it was r/t a comorbid serious UTi. Pt denies etoh, tobacco or substance use. Pt's family reports issues since Wednesday, she had boarded a plane to go to [place] with . She felt nauseated, deplaned and went to [facility] ER where she was treated for nausea and discharged. On Wednesday, she was reporting AH of fleas/rats and confusion/disorientation as well as TH of sores in her esophagus and was putting things in throat to try to address this. Pt was taken to ER and d/t hx of UTI and similar manifesting of sx, was screened and cleared for UTI, then discharged. According to her family, sx have been escalating. Pt reportedly not eating for 4 days and has not taken her meds for 2 days. Pt was sitting in room naked, with clothing on floor, appearing somewhat confused. Later able to have a linear conversation and dressed in hospital attire. Provider corporation secretary notified and orders obtained. Pt placed on 15 minute safety checks. Pt reports that she feels safe in the hospital.
--- NOTE | 2025-05-11 08:18 | P.CONHOSP_ITS ---
History of Present Illness Data of Consult Service Date: 05/11/25 Primary Care Provider: Unknown Physician HPI Reason for consult: Medical management 69-year-old female with a past medical history of GERD, bipolar disorder, PTSD, depression, anxiety, fibromyalgia, schizophrenia, anemia, IBS, glaucoma, type 2 diabetes presented to the ED with suicidal ideation auditory and visual hallucinations. She did not disclose a plan. Her EKG was within normal limits, she had some hypokalemia which was replaced, no anemia, no leukocytosis, slight elevation in AST and ALT, normal bilirubin. Urine without evidence of infection, U tox positive for benzos which she is prescribed. No alcohol. On exam she denies any shortness of breath, dizziness, palpitations, headaches, abdominal pain or any other concerning symptoms. Patient reports that she is tired and wants to rest but other than that she has no other concerns. Review of Systems 2 Review of Systems: Denies any shortness of breath, chest pain, palpitations, dizziness, lightheadedness, headaches, dysuria, abdominal pain or discomfort, nausea, vomiting or diarrhea. Denies Chills, body aches, muscle aches, fatigue or weight loss. [facility] Medical History Bipolar disorder PTSD (post-traumatic stress disorder) Depression Anxiety Fibromyalgia Schizophrenia Anemia Ileus Tubular adenoma of colon History of pancreatitis Irritable bowel syndrome with constipation Diverticulitis GERD (gastroesophageal reflux disease) Chronic idiopathic constipation Family History Father No problems noted. Mother Diabetes Melanoma Family history of hypertension Family history of diabetes mellitus Surgical History History of esophagogastroduodenoscopy (EGD) Hx of colonoscopy Social History Household Members: Spouse Housing: Unknown / Unable to assess Are you a primary caretaker grounds to a significant other at home: No Do you presently have visiting nurse or other home services: No Alcohol intake: never Patient Tobacco Use Status: Never used Tobacco Second Hand Smoke Exposure: No Advance Directives: No Advance Directives Information Provided: Yes Do you have a plan to hurt others: No Plan Recently lost weight without trying: Unsure How much weight loss: Not applicable Eating poorly because of decreased appetite: No Nutrition screen score: 2 Nutrition Risks: Poor intake 0-25% >4 days Patient : No : No service: No Current occupational status: disabled Sexual orientation: Straight/Heterosexual Meds Allergies Allergy/AdvReac Type Severity Reaction Status Date / Time No Known Allergies (No Known Allergy Verified 05/10/25 14:27 Allergies*) Active Medications: Current Medications Acetaminophen (Acetaminophen 325 Mg Tablet) 650 mg PO Q6H PRN PRN Reason: Headache/Pain, Scale 1-10 Al Hydroxide/Mg Hydroxide (Magnesium Hydrox/Alum Hydrox 30 Ml Oral.Susp) 30 ml PO Q6H PRN PRN Reason: Heartburn/Nausea Alprazolam (Alprazolam 0.5 Mg Tablet) 1 mg PO QID PRN PRN Reason: Anxiety Last Admin: 05/10/25 19:16 Dose: 1 mg Bisacodyl (Bisacodyl 5 Mg Tablet.Dr) 10 mg PO BEDTIME [facility] Last Admin: 05/10/25 21:29 Dose: 10 mg Brimonidine Tartrate (Brimonidine Tartrate 0.2% Oph 5 Ml Bottle) 1 drop EYE- RIGHT BID [facility] Last Admin: 05/10/25 21:43 Dose: 1 drop Dicyclomine HCl (Dicyclomine Hcl 10 Mg Capsule) 10 mg PO QID [facility] Last Admin: 05/10/25 21:30 Dose: 10 mg Famotidine (Famotidine 20 Mg Tablet) 40 mg PO BEDTIME [facility] Last Admin: 05/10/25 21:30 Dose: 40 mg Hydroxyzine HCl (Hydroxyzine Hcl 50 Mg Tablet) 50 mg PO BID PRN PRN Reason: Anxiety Influenza Virus Vaccine (Flu Vacc [id number](6mo Up)/Pf 0.5 Ml Syringe) 0.5 ml IM .ONCE ONE Stop: 05/11/25 09:01 Latanoprost (Latanoprost 0.005 % Ophth [place] 2.5 Ml Drops) 1 drop EYE-BOTH BID [facility] Last Admin: 05/10/25 21:41 Dose: 1 drop Magnesium Hydroxide (Milk Of Magnesia 30 Ml Oral.Susp) 30 ml PO DAILY PRN PRN Reason: Constipation Metformin HCl (Metformin Hcl 500 Mg Tablet) 500 mg PO BID [facility] Last Admin: 05/10/25 21:30 Dose: 500 mg Methylphenidate HCl (Methylphenidate Hcl 10 Mg Tablet) 20 mg PO BID [facility] Last Admin: 05/10/25 21:31 Dose: 20 mg Misoprostol (Misoprostol 200 Mcg Tablet) 200 mcg PO BID [facility] Last Admin: 05/10/25 21:31 Dose: 200 mcg Nicotine Polacrilex (Nicotine Polacrilex 2 Mg Gum) 2 mg BUCCAL Q2H PRN PRN Reason: Nicotine Cravings Non-Formulary Medication (Linaclotide [Linzess]) 290 mcg PO DAILY [facility] Non-Formulary Medication (Prucalopride) 2 mg PO DAILY [facility] Olanzapine (Olanzapine 5 Mg Tablet) 5 mg PO BID PRN PRN Reason: agitation Omeprazole (Omeprazole 20 Mg Capsule.Dr) 20 mg PO BID [facility] Last Admin: 05/10/25 21:32 Dose: 20 mg Polyethylene Glycol (Polyethylene Glycol 3350 17 Gm Powd.Pack) 17 gm PO DAILY [facility] Prazosin HCl (Prazosin Hcl 1 Mg Capsule) 1 mg PO BEDTIME [facility] Last Admin: 05/10/25 21:33 Dose: 1 mg Prazosin HCl (Prazosin Hcl 5 Mg Capsule) 5 mg PO BEDTIME [facility] Last Admin: 05/10/25 21:34 Dose: 5 mg Quetiapine Fumarate (Quetiapine Fumarate 200 Mg Tablet) 200 mg PO BID [facility] Last Admin: 05/10/25 21:32 Dose: 200 mg Senna (Sennosides 8.6 Mg Tablet) 17.2 mg PO BEDTIME [facility] Last Admin: 05/10/25 21:33 Dose: 17.2 mg Simethicone (Simethicone 80 Mg Tab.Chew) 160 mg PO QID [facility] Last Admin: 05/10/25 21:34 Dose: 160 mg Timolol Maleate (Timolol Maleate 0.5 % Oph [place] 5 Ml Drbtl) 1 drop EYE-RIGHT BID [facility] Last Admin: 05/10/25 21:44 Dose: 1 drop Venlafaxine HCl (Venlafaxine Hcl Er 150 Mg Cap.Er.24h) 150 mg PO DAILY [facility] Zolpidem Tartrate (Zolpidem Tartrate 5 Mg Tablet) 10 mg PO BEDTIME PRN PRN Reason: Insomnia Home Medications ?Medication ?Instructions ?Recorded ?Confirmed ?Last Taken ?Type brimonidine 0.2 %-timolol 0.5 % 1 drp ophthalmic-Right BID 12/13/21 05/10/25 05/07/25 History eye drops (Combigan) latanoprost 0.005 % eye drops 1 drp ophthalmic (eye) B ID 11/10/22 05/10/25 05/07/25 History alprazolam 1 mg tablet 1 mg PO QID PRN Anxiety 12/10/3005/10/25 Unknown History hydroxyzine pamoate 50 mg capsule 50 mg PO BID PRN Anx iety 07/11/24 05/10/25 Unknown History methylphenidate HCl 20 mg 20 mg PO BID 07/11/2405/07/25 History tablet,extended release quetiapine 400 mg tablet,extended 400 mg PO BEDTIME 05/10/25 05/07/25 History release 24 hr venlafaxine 75 mg capsule,extended 150 mg PO DAILY 10/3005/10/25 05/07/25 History release 24 hr zolpidem 10 mg tablet 10 mg PO BEDTIME PRN Insomni a 07/11/24 05/10/25 Unknown History metformin 500 mg tablet 500 mg PO BID 11/23/2405/1005/07/25 History Physical Exam 2 Vital Signs and Narrative: Vital Signs: Last Vital Signs Temp 98.6 F 05/10/25 21:20 Pulse 90 05/10/25 21:20 Resp 16 05/10/25 21:20 BP 120/79 05/10/25 21:34 Pulse Ox 98 05/10/25 21:20 O2 Del Method Room Air 05/10/25 21:20 BMI result Body Mass Index 32.9 General: Cooperative, no acute distress, well-nourished oriented x4. HEENT: Normocephalic atraumatic hearing within normal limits mucous membranes moist Respiratory: Normal respiratory effort lung sounds clear Neuro: Moves all extremities, CN's II-XI intact Extremities: No edema Skin: Visible skin intact with no rashes or bruising Psych: Quiet and cooperative, grossly normal Results Labs 05/10/25 14:12 05/11/25 07:38 Labs: Laboratory Results - last 24 hr 05/10/25 14:12 MCV 74.5 L MCH 25.1 L MCHC 33.6 RDW 13.6 Plt Count 267 MPV 10.5 Immature Gran % (Auto) 0.6 H Neut % (Auto) 71.1 Lymph % (Auto) 21.8 [place] % (Auto) 6.3 Eos % (Auto) 0.0 Baso % (Auto) 0.2 Lymph # (Auto) 1.9 [place] # (Auto) 0.6 Eos # (Auto) 0.0 Baso # (Auto) 0.0 Abs Immat Gran (auto) 0.05 H Absolute Neuts (auto) 6.2 Absolute Nucleated RBC 0.000 Nucleated RBC % (auto) 0.0 Anion Gap 14 Estim Creat Clear Calc 60.0 Estimated GFR > 60 Random Glucose 184 H Calcium 8.9 Total Bilirubin 0.7 AST 38 H ALT 34 H Alkaline Phosphatase 111 Total Protein 6.9 Albumin 4.5 Salicylates < 5.0 L Acetaminophen < 3 Ethyl Alcohol 12 COVID-19 ([facility]) Negative COVID-19 Clin Com See Note Assessment and Plan (1) Type 2 diabetes mellitus: Status: Acute Plan 69-year-old female with a past medical history listed below who presented to the ED with hallucinations, suicide ideation and not taking medications. She is now admitted to inpatient psych for further care. Bipolar disorder/PTSD/Depression/Anxiety/Schizophrenia Treatment per psychiatric team Anemia Labs stable IBS Continue dicyclomine Chronic idiopathic constipation Takes Linzess and prucalopride Glaucoma Continue eye drops Type 2 diabetes Continue metformin b.i.d. Hemoglobin A1c 6.1 GERD Continue Pepcid b.i.d. Thank you for allowing me to participate in the care of this patient. Will follow as needed, please notify medical provider with any changes in condition or concerns.
--- NOTE | 2025-05-11 08:58 | P.HPPS_ITS ---
HPI Date of Service: 05/11/25 Chief Complaint: Decomp, ST and AH Sources of Information: patient interviewed, chart reviewed and crisis/core team assessment reviewed HPI Subjective Notes: Conditional Voluntary Narrative: Ms. Mcintosh is a 69 yo F with h/o bipolar d/o, PTSD, delirium 2/2 UTI, Type II DM, HTN, GERD, fibromyalgia, celiac, pancreatitis, & ileus who was admitted to [facility] M[facility] due to AMS, hallucinations and SI. I was having a lot of hallucinations . She reports a h/o perceptual disturbances on a fairly regular basis, including olfactory hallucinations of a very strong/bothersome fragrance-like scent at her home that nobody else smells. She denies smelling it here. She often hears noises in her home that sound like someone is there when she's alone. She reports that the recent hallucinations are much more severe than her usual hallucinations, which she attributes to having a UTI. She recalls having these types of hallucinations in the past when she had a UTI. UA done at [facility] ED on 05/09 showed trace nitrites, elevated glucose, otherwise unremarkable. Per Crisis assessment, pt and her financial secretary were at the airport with plans to fly to [place] for vacation on 05/08 and pt c/o nausea while boarding and disembarked. She went to the ED in [place] and was treated for nausea, then d/c'd. The following day, she returned to the ED after reporting visual hallucinations to eval for UTI since she has a h/o delirium 2/2 UTIs. UA was negative and she was discharged home. Her family referred her to Crisis due to worsening psychotic sx/confusion, including VH of fleas and rats, tactile hallucinations of sores in her mouth, leading her to put things down her throat. She reportedly didn't eat or drink x 4 days, didn't take her meds x 2 days. Pt doesn't recall being in the airport prior to admission. She states that her sister was supposed to go to [place] and someone was supposed to stay home w/ her. She denies any new stressors recently and she feels like her recent sx are due to a UTI. Per unit staff here, pt was naked in her room and confused yesterday after admission. Psychiatric ROS: Trauma/PTSD: Pt endorses h/o trauma. She has been thinking a lot about neg things from the past, having flashbacks. She reports that her male 'financial secretary' with whom she lives has cheated on her multiple times in the past and she has a lot of difficulty w/ trust. Denies recent manic sx. Endorses intermittent depression and SI, with thoughts to cut herself or o/d on her pills. Denies recent self harming behaviors. Denies h/o violence or violent ideation Home Psychotroipc Medications: alprazolam 1 mg qid prn for anxiety-- per GOVERNMENT RELATIONS ANALYST- has filled every month recently venlafaxine XR 150 mg qd methylphenidate ER 20 mg bid-- per pt, reduces depressive sx prazosin 6 mg qhs zolpidem 10 mg qhs prn quetiapine ER 400 mg qhs hydroxyzine 50 mg bid prn for anxiety Past Psychiatric History: Psychiatric Provider: Alix Patel ([phone]) Brief psychiatric admission at [facility] in Apr 2024 for delirium 2/2 UTI Pt reports a h/o self harming behaviors IPLOC at [facility] in 2023 and ~2019 per chart Past Psychotropic Med Trials: amitryptyline Medical Evaluation Reviewed: Yes [facility] Medical History Bipolar disorder PTSD (post-traumatic stress disorder) Depression Anxiety Fibromyalgia Schizophrenia Anemia Ileus Tubular adenoma of colon History of pancreatitis Irritable bowel syndrome with constipation Diverticulitis GERD (gastroesophageal reflux disease) Chronic idiopathic constipation Surgical History History of esophagogastroduodenoscopy (EGD) Hx of colonoscopy Family History: unknown Social History: SHx: Pt lives w/ her male financial secretary She reports that she was in the past She has 2 dtrs and a son. Her main support is her older daughter Substance History: Denies. Utox positive only for benzos (has rx for Xanax) Diagnostics Vital Signs (24Hr): Vital Signs - 24 hr 05/10/25 15:07 05/10/25 19:10 05/10/25 21:20 Temperature 97.7 F 97.6 F 98.6 F Pulse Rate 72 80 90 Respiratory Rate 16 16 16 Blood Pressure 140/73 H 163/96 H 120/79 Pulse Oximetry 97 99 98 Oxygen Delivery Method Room Air Room Air Room Air 10/02/25 21:33 05/10/25 21:34 Temperature Pulse Rate Respiratory Rate Blood Pressure 120/79 120/79 Pulse Oximetry Oxygen Delivery Method BMI result Body Mass Index 32.9 Labs 05/10/25 14:12 05/11/25 07:38 Labs: Laboratory Results - last 48 hr 05/10/25 05/11/25 14:12 07:38 WBC 8.7 RBC 4.79 Hgb 12.0 Hct 35.7 L MCV 74.5 L MCH 25.1 L MCHC 33.6 RDW 13.6 Plt Count 267 MPV 10.5 Immature Gran % (Auto) 0.6 H Neut % (Auto) 71.1 Lymph % (Auto) 21.8 [place] % (Auto) 6.3 Eos % (Auto) 0.0 Baso % (Auto) 0.2 Lymph # (Auto) 1.9 [place] # (Auto) 0.6 Eos # (Auto) 0.0 Baso # (Auto) 0.0 Abs Immat Gran (auto) 0.05 H Absolute Neuts (auto) 6.2 Absolute Nucleated RBC 0.000 Nucleated RBC % (auto) 0.0 Sodium 142 Potassium 3.2 L Chloride 109 H Carbon Dioxide 22 Anion Gap 14 BUN 16 Creatinine 0.90 Estim Creat Clear Calc 60.0 Estimated GFR > 60 Random Glucose 184 H Estimat Average Glucose 128 Hemoglobin A1c % 6.1 H Calcium 8.9 Total Bilirubin 0.7 AST 38 H ALT 34 H Alkaline Phosphatase 111 Total Protein 6.9 Albumin 4.5 Salicylates < 5.0 L Acetaminophen < 3 Ethyl Alcohol 12 COVID-19 ([facility]) Negative COVID-19 Clin Com See Note Meds/Allergies Meds Home Medications ?Medication ?Instructions ?Recorded ?Confirmed ?Type brimonidine 0.2 %-timolol 0.5 % 1 drp ophthalmic-Right BID 12/13/21 05/10/25 History eye drops (Combigan) latanoprost 0.005 % eye drops 1 drp ophthalmic (eye) B ID 11/10/22 05/10/25 History alprazolam 1 mg tablet 1 mg PO QID PRN Anxiety 12/0 10/3005/10/25 History hydroxyzine pamoate 50 mg capsule 50 mg PO BID PRN Anx iety 07/11/24 05/10/25 History methylphenidate HCl 20 mg 20 mg PO BID 07/11/24 History tablet,extended release quetiapine 400 mg tablet,extended 400 mg PO BEDTIME 05/10/25 History release 24 hr venlafaxine 75 mg capsule,extended 150 mg PO DAILY 10/3005/10/25 History release 24 hr zolpidem 10 mg tablet 10 mg PO BEDTIME PRN Insomni a 07/11/24 05/10/25 History metformin 500 mg tablet 500 mg PO BID 11/23/2405/10 History Allergies Allergies Allergy/AdvReac Type Severity Reaction Status Date / Time No Known Allergies (No Known Allergy Verified 05/10/25 14:27 Allergies*) Mental Status Exam Mental Status Exam Narrative: Appearance: Lying in bed w/ eyes closed throughout interview. Dressed in [facility]. NAD Attitude: Cooperative Speech: Fluent and wnl in regard to volume, tone, prosody Motor activity: Calm and without any tics, tremors or dyskinesias. Mood: tired Affect: appropriate, constricted Thought process: goal directed and without evidence of formal thought disorder Thought content: as noted above. Perception: Denies AH/VH and does not appear to respond to internal stimuli Oriented in all spheres Cognition grossly intact Insight: intact Judgment: intact Assessment & Plan Assessment & Plan (1) Delirium: Status: Acute Code(s): R41.0 - Disorientation, unspecified (2) Bipolar disorder with depression: Status: Acute Code(s): F31.9 - Bipolar disorder, unspecified (3) Trauma and stressor-related disorder: Status: Acute Code(s): F43.9 - Reaction to severe stress, unspecified Assessment and Plan: Ms. Mcintosh is a 69 yo F with h/o bipolar d/o, PTSD, delirium 2/2 UTI, Type II DM, HTN, GERD, fibromyalgia, celiac, pancreatitis, & ileus who was admitted to [facility] M[facility] due to AMS, hallucinations and SI. Mental status has significantly improved since this morning. Cause of AMS is unkown. UA is negative for UTI. Labs are unremarkable aside from mild elevation in AST/ALT and A1c of 6.1. Pt reports that the perceptual disturbances started before she stopped her meds, so this doesn't seem to be related to benzo w/d. Plan: Admitted to M3 for safety/stabilization Legal status- CV Held methylphenidate today. Can re-start over the weekend if clinically appropriate. Lowered alprazolam to .5 mg QID prn for anxiety due to AMS and sedation today. Can increase dose back up to max of 1 mg 4x/day prn if clinically appropriate, given that pt has been filling her rx for 4 mg/day on a monthly basis for at least the past 2 yrs per GOVERNMENT RELATIONS ANALYST. Lower zolpidem to 5 mg qhs as standing dose. Offer 5 mg prn for insomnia Hold hydroxyzine for now, given concerns for delirium Lower quetiapine standing dose to 200 mg at hs. Offer 100 mg bid prn for severe anxiety/agitation Continue venlafaxine XR 150 mg qd Left vm with pt's outpatient psychiatric provider for care coordination. She is out of the office on Fridays. Milieu therapy D/C planning Patient educated on: medication risk/benefits, therapeutic strategies and medical condition Informed Consent: understands Reason for continued inpatient stay Substantial Risk for: med/psych decompensation Statement Statement: I have reviewed the history and physical and performed a pertinent examination on my patient. No changes have occurred unless specified. If the History and Physical was not performed prior to admission, the Hospitalist's service will be consulted for completing the admission physical. Time Spent With Patient Time: Total time managing care of this patient today _90__ minutes.
[2025-05-11 09:08] LABS: Alanine Aminotransferase 31 U/L (0-31); Albumin Level 3.9 g/dL (3.5-5.0); Alkaline Phosphatase 96 U/L (39-117); Anion Gap 13 (12-20); Aspartate Amino Transferase 27 U/L (5-31); Blood Urea Nitrogen 16 mg/dL (9-16); Calcium 8.5 mg/dL (8.4-10.2); Carbon Dioxide 20 mmol/L (22-29); Chloride 111 mmol/L (96-108); Cholesterol 178 mg/dL (<200); Creatinine Clr Calc Pharmacy 62.8; Estimated Glomerular Filt Rate > 60; HDL Cholesterol 52 mg/dL (>40); Potassium 3.5 mmol/L (3.3-5.1); Sodium 140 mmol/L (135-145); Total Protein 6.0 g/dL (6.5-8.0); Triglycerides 141 mg/dL (<150)
[2025-05-11 09:17] LABS: Free T4 (Free Thyroxine) 1.08 ng/dL (0.71-1.85); Thyroid Stimulating Hormone 0.45 uIU/mL (0.32-4.0)
[2025-05-11] MEDS: Brimonidine Tartrate 0.2% Oph 5 ML BOTTLE 1 DROP EYE-RIGHT ×2 (10:57→21:46)
[2025-05-11] MEDS: Latanoprost 0.005 % Ophth Sol 2.5 ML DROPS 1 DROP EYE-BOTH ×2 (11:14→21:46)
[2025-05-11] MEDS: Venlafaxine HCl ER 150 MG CAP.ER.24H PO (11:15)
[2025-05-11] MEDS: Flu Vacc TS2025-26(6mo up)/PF 0.5 ML SYRINGE IM (11:16)
[2025-05-11] MEDS: timoloL maleate 0.5 % Oph Sol 5 ML DRBTL 1 DROP EYE-RIGHT ×2 (11:33→21:46)
[2025-05-11 14:08] VITALS: BP 102/56; PULSE 90; TEMP 36.7; O2SAT 98
--- NOTE | 2025-05-11 14:09 | MHC.CLN ---
CONSULT VISITED WITH PATIENT IN HER ROOM. VERY POOR INTAKE TODAY WITH 25% OF BREAKFAST AND NO LUNCH. AGREES TO TRY ENSURE 2 TIMES DAILY. SUPPLEMENT PROVIDES 700 KCALS, 40 G PROTEIN. WEIGHT HX 05/10/25=81.647 KG; 05/09/25=58.3 KG; 12/29/24=64.4 KG. PATIENT APPEARS WELL NOURISHED.
--- NOTE | 2025-05-11 18:40 | PC.NURSE ---
Pt was given a urine cup and instructions to collect a sample. She was reminded multiple times of need for urine sample but has not as yet turned one in.
[2025-05-11] MEDS: Magnesium Hydrox/Alum Hydrox 30 ML ORAL.SUSP PO (19:19)
[2025-05-11 20:00] VITALS: BP 149/75; PULSE 78; RESP 114; TEMP 36.8; O2SAT 99
[2025-05-11 20:06] LABS: Appearance Urine Clear; Glucose Urine UA Negative (Negative); PH 5.5 (5.0-9.0); Specific Gravity - Urine 1.025 (1.005-1.025); UMIC TRIGGER UA YES
[2025-05-11 20:14] LABS: Cannabinoid Screen Urine Not Detected (Not Detect)
[2025-05-11 21:48] VITALS: BP 149/75
[2025-05-11 21:49] VITALS: BP 149/75
--- NOTE | 2025-05-12 07:27 | HO.PSYCHPN ---
Subjective Subjective Date of Service: 05/12/25 Reason For Visit: Decomp, ST and AH Subjective Notes: Conditional Voluntary Interim History: Met with patient. Discussed with Nursing. Is anxious and concerned around medications being held. QTC has been elevated and last p.m. was 570. educated patient on rationale for discontinuing Seroquel, in spite being on high dose for almost 20 years. Also educated that stimulant in itself will not prolong QTC, but with a prolonged QTC there is a higher chance of arrhythmia and therefore also rationale for holding stimulant medication. Patient did appear to show understanding regarding rationale and overall felt supported. Prazosin is helpful for nightmares, does not get sedate on same and agreed to have low dose during the daytime which might help with anxiety symptoms. Sleep has been okay. Denies hallucinations. Intermittent hopelessness, but no active SI but overall does feel supported. Did vomit last night and reports this was due to the food that she ate and will try a more simple diet today. regarding medication regimen would like primary team to liaise with community provider Dr. Meli Patel after the weekend. Medication Compliance: Yes Side effects from medications: Yes ( Prolonged QTC) Attending Groups: Intermittent Review of Systems Qtc 570 on 05/11/25 at 7pm Review of Systems Review of Systems unremarkable today Mental Status Exam Mental Status Exam Narrative: Appearance: Lying in bed. Dressed in [facility]. NAD Attitude: Cooperative Speech: Fluent and wnl in regard to volume, tone, prosody Motor activity: Calm and without any tics, tremors or dyskinesias. Mood: tired, anxious Affect: appropriate, constricted Thought process: goal directed and without evidence of formal thought disorder Thought content: intermittent hopelessness but no active SI Perception: Denies AH/VH and does not appear to respond to internal stimuli Oriented in all spheres Cognition grossly intact Insight: intact Judgment: intact Diagnostics Vital Signs (24Hr): Vital Signs - 24 hr 05/11/25 14:08 05/11/25 20:00 05/11/25 21:48 Temperature 98.0 F 98.3 F Pulse Rate 90 78 Respiratory Rate 114 H Blood Pressure 102/56 L 149/75 H 149/75 H Pulse Oximetry 98 99 Oxygen Delivery Method Room Air Room Air 05/11/25 21:49 Temperature Pulse Rate Respiratory Rate Blood Pressure 149/75 H Pulse Oximetry Oxygen Delivery Method BMI result Body Mass Index 32.9 Labs 05/10/25 14:12 05/11/25 07:38 Labs: Laboratory Results - last 48 hr 05/10/25 05/11/25 05/11/25 14:12 07:38 19:23 WBC 8.7 RBC 4.79 Hgb 12.0 Hct 35.7 L MCV 74.5 L MCH 25.1 L MCHC 33.6 RDW 13.6 Plt Count 267 MPV 10.5 Immature Gran % (Auto) 0.6 H Neut % (Auto) 71.1 Lymph % (Auto) 21.8 [place] % (Auto) 6.3 Eos % (Auto) 0.0 Baso % (Auto) 0.2 Lymph # (Auto) 1.9 [place] # (Auto) 0.6 Eos # (Auto) 0.0 Baso # (Auto) 0.0 Abs Immat Gran (auto) 0.05 H Absolute Neuts (auto) 6.2 Absolute Nucleated RBC 0.000 Nucleated RBC % (auto) 0.0 Sodium 142 140 Potassium 3.2 L 3.5 Chloride 109 H 111 H Carbon Dioxide 22 20 L Anion Gap 14 13 BUN 16 16 Creatinine 0.90 0.86 Estim Creat Clear Calc 60.0 62.8 Estimated GFR > 60 > 60 Random Glucose 184 H 218 H Estimat Average Glucose 128 Hemoglobin A1c % 6.1 H Calcium 8.9 8.5 Total Bilirubin 0.7 0.4 AST 38 H 27 ALT 34 H 31 Alkaline Phosphatase 111 96 Total Protein 6.9 6.0 L Albumin 4.5 3.9 Triglycerides 141 Cholesterol 178 LDL Cholesterol, Calc 98 HDL Cholesterol 52 TSH 0.45 Free T4 1.08 Urine Color Yellow Urine Appearance Clear Urine pH 5.[address] 1.025 Urine Protein Trace Urine Glucose (UA) Negative Urine Ketones Negative Urine Blood Negative Urine Nitrite Negative Ur Leukocyte Esterase Small (1+) H Urine RBC 0-2 Urine WBC 6-10 Ur Squamous Epith Cells 11-20 Calcium Oxalate Crystal Present Urine Bacteria 1+ Hyaline Casts 0-2 Salicylates < 5.0 L Urine Opiates Screen Not Detected Ur Buprenorphine Scrn Not Detected Ur Oxycodone Screen Not Detected Urine Methadone Screen Not Detected Urine Fentanyl Screen Not Detected Acetaminophen < 3 Ur Barbiturates Screen Not Detected Ur Phencyclidine Scrn Not Detected Ur Amphetamines Screen Not Detected U Benzodiazepines Scrn POSITIVE H Urine Cocaine Screen Not Detected U Marijuana (THC) Screen Not Detected Ethyl Alcohol 12 COVID-19 ([facility]) Negative COVID-19 Clin Com See Note Medications Medications Current Medications Acetaminophen (Acetaminophen 325 Mg Tablet) 650 mg PO Q6H PRN PRN Reason: Headache/Pain, Scale 1-10 Al Hydroxide/Mg Hydroxide (Magnesium Hydrox/Alum Hydrox 30 Ml Oral.Susp) 30 ml PO Q6H PRN PRN Reason: Heartburn/Nausea Last Admin: 05/11/25 19:19 Dose: 30 ml Alprazolam (Alprazolam 0.5 Mg Tablet) 0.5 mg PO QID PRN PRN Reason: Anxiety Last Admin: 05/11/25 19:20 Dose: 0.5 mg Bisacodyl (Bisacodyl 5 Mg Tablet.) 10 mg PO BEDTIME [facility] Last Admin: 05/11/25 21:49 Dose: 10 mg Brimonidine Tartrate (Brimonidine Tartrate 0.2% Oph 5 Ml Bottle) 1 drop EYE-RIGHT BID [facility] Last Admin: 05/11/25 21:46 Dose: 1 drop Dicyclomine HCl (Dicyclomine Hcl 10 Mg Capsule) 10 mg PO QID [facility] Last Admin: 05/11/25 21:50 Dose: 10 mg Famotidine (Famotidine 20 Mg Tablet) 40 mg PO BEDTIME [facility] Last Admin: 05/11/25 21:49 Dose: 40 mg Latanoprost (Latanoprost 0.005 % Ophth [place] 2.5 Ml Drops) 1 drop EYE-BOTH BID [facility] Last Admin: 05/11/25 21:46 Dose: 1 drop Magnesium Hydroxide (Milk Of Magnesia 30 Ml Oral.Susp) 30 ml PO DAILY PRN PRN Reason: Constipation Metformin HCl (Metformin Hcl 500 Mg Tablet) 500 mg PO BID [facility] Last Admin: 05/11/25 21:47 Dose: 500 mg Misoprostol (Misoprostol 200 Mcg Tablet) 200 mcg PO BID [facility] Last Admin: 05/11/25 21:47 Dose: 200 mcg Nicotine Polacrilex (Nicotine Polacrilex 2 Mg Gum) 2 mg BUCCAL Q2H PRN PRN Reason: Nicotine Cravings Non-Formulary Medication (Linaclotide [Linzess]) 290 mcg PO DAILY [facility] Non-Formulary Medication (Prucalopride) 2 mg PO DAILY [facility] Omeprazole (Omeprazole 20 Mg Capsule.Dr) 20 mg PO BID [facility] Last Admin: 05/11/25 21:47 Dose: 20 mg Polyethylene Glycol (Polyethylene Glycol 3350 17 Gm Powd.Pack) 17 gm PO DAILY [facility] Last Admin: 05/11/25 11:01 Dose: 17 gm Prazosin HCl (Prazosin Hcl 1 Mg Capsule) 1 mg PO BEDTIME [facility] Last Admin: 05/11/25 21:48 Dose: 1 mg Prazosin HCl (Prazosin Hcl 5 Mg Capsule) 5 mg PO BEDTIME [facility] Last Admin: 05/11/25 21:49 Dose: 5 mg Senna (Sennosides 8.6 Mg Tablet) 17.2 mg PO BEDTIME [facility] Last Admin: 05/11/25 21:47 Dose: 17.2 mg Simethicone (Simethicone 80 Mg Tab.Chew) 160 mg PO QID [facility] Last Admin: 05/11/25 22:01 Dose: Not Given Timolol Maleate (Timolol Maleate 0.5 % Oph [place] 5 Ml Drbtl) 1 drop EYE-RIGHT BID [facility] Last Admin: 05/11/25 21:46 Dose: 1 drop Venlafaxine HCl (Venlafaxine Hcl Er 150 Mg Cap.Er.24h) 150 mg PO DAILY [facility] Last Admin: 05/11/25 11:15 Dose: 150 mg Zolpidem Tartrate (Zolpidem Tartrate 5 Mg Tablet) 5 mg PO BEDTIME [facility] Last Admin: 05/11/25 21:49 Dose: 5 mg Zolpidem Tartrate (Zolpidem Tartrate 5 Mg Tablet) 5 mg PO BEDTIME PRN PRN Reason: Insomnia Allergies Allergies Allergy/AdvReac Type Severity Reaction Status Date / Time No Known Allergies (No Known Allergy Verified 05/10/25 14:27 Allergies*) Assessment & Plan Assessment & Plan (1) Delirium: Status: Acute Code(s): R41.0 - Disorientation, unspecified (2) Bipolar disorder with depression: Status: Acute Code(s): F31.9 - Bipolar disorder, unspecified (3) Trauma and stressor-related disorder: Status: Acute Code(s): F43.9 - Reaction to severe stress, unspecified Assessment and Plan: Ms. Mcintosh is a 69 yo F with h/o bipolar d/o, PTSD, delirium 2/2 UTI, Type II DM, HTN, GERD, fibromyalgia, celiac, pancreatitis, & ileus who was admitted to [facility] due to AMS, hallucinations and SI. Mental status has significantly improved since this morning. Cause of AMS is unkown. UA is negative for UTI. Labs are unremarkable aside from mild elevation in AST/ALT and A1c of 6.1. Pt reports that the perceptual disturbances started before she stopped her meds, so this doesn't seem to be related to benzo w/d. Plan: Admitted to for safety/stabilization Legal status- CV Held methylphenidate today. Can re-start over the weekend if clinically appropriate. Lowered alprazolam to .5 mg QID prn for anxiety due to AMS and sedation today. 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 Lower zolpidem to 5 mg qhs as standing dose. Offer 5 mg prn for insomnia Hold hydroxyzine for now, given concerns for delirium Lower quetiapine standing dose to 200 mg at hs. Offer 100 mg bid prn for severe anxiety/agitation Continue venlafaxine XR 150 mg qd Left vm with pt's outpatient psychiatric provider for care coordination. She is out of the office on Fridays. Milieu therapy D/C planning 05/12/25: Qtc 570 on 05/11/25 at 7pm. Educated patient on rationale for discontinuing Seroquel, in spite being on high dose for almost 20 years. Also educated that stimulant in itself will not prolong QTC, but with a prolonged QTC there is a higher chance of arrhythmia and therefore also rationale for holding stimulant medication. Patient did appear to show understanding. Would like primary team to liaise with community provider Dr. Meli Patel ref med regimen after the weekend. Reason for continued inpatient stay Substantial Risk for: inability to function Time Spent With Patient Time: Total time managing care of this patient today ____ minutes.
[2025-05-12 07:36] VITALS: BP 101/56; PULSE 80; RESP 20; TEMP 37.3; O2SAT 99
[2025-05-12 07:49] LABS: Glucose, Whole Blood 138 mg/dL (60-115)
[2025-05-12] MEDS: Venlafaxine HCl ER 150 MG CAP.ER.24H PO (08:19)
[2025-05-12] MEDS: timoloL maleate 0.5 % Oph Sol 5 ML DRBTL 1 DROP EYE-RIGHT ×2 (08:19→19:48)
[2025-05-12] MEDS: Latanoprost 0.005 % Ophth Sol 2.5 ML DROPS 1 DROP EYE-BOTH ×2 (08:55→19:56)
[2025-05-12] MEDS: Brimonidine Tartrate 0.2% Oph 5 ML BOTTLE 1 DROP EYE-RIGHT ×2 (09:13→19:52)
--- NOTE | 2025-05-12 10:00 | ECG_ITS ---
Test Reason : prolong QT/QTC Blood Pressure : */* mmHG Vent. Rate : 78 BPM Atrial Rate : 78 BPM P-R Int : 194 ms QRS Dur : 68 ms QT Int : 398 ms P-R-T Axes : 53 91 97 degrees QTcB Int : 454 ms Normal sinus rhythm Rightward axis Low voltage QRS Nonspecific T wave abnormality Abnormal ECG When compared with ECG of 10-May-2025 15:41, No significant changes seen Referred By: Liz Roberts Electronically Signed By: JESSICA MCPHERSON
[2025-05-12 16:04] VITALS: BP 132/61
[2025-05-12 20:00] VITALS: BP 167/68; PULSE 71; RESP 14; TEMP 36.7; O2SAT 99
[2025-05-13 07:35] LABS: Glucose, Whole Blood 191 mg/dL (60-115)
[2025-05-13 07:52] VITALS: BP 110/59; PULSE 89; RESP 12; TEMP 36.9; O2SAT 98
[2025-05-13] MEDS: Venlafaxine HCl ER 150 MG CAP.ER.24H PO (08:01)
[2025-05-13] MEDS: Brimonidine Tartrate 0.2% Oph 5 ML BOTTLE 1 DROP EYE-RIGHT ×2 (08:03→20:26)
[2025-05-13] MEDS: Latanoprost 0.005 % Ophth Sol 2.5 ML DROPS 1 DROP EYE-BOTH ×2 (08:47→20:39)
[2025-05-13] MEDS: timoloL maleate 0.5 % Oph Sol 5 ML DRBTL 1 DROP EYE-RIGHT ×2 (09:03→20:52)
--- NOTE | 2025-05-13 11:00 | HO.PSYCHPN ---
Subjective Subjective Date of Service: 05/13/25 Reason For Visit: Decomp, ST and AH Interim History: as per note 05/12/25: QTC has been elevated and last p.m. was 570. educated patient on rationale for discontinuing Seroquel, in spite being on high dose for almost 20 years. Also educated that stimulant in itself will not prolong QTC, but with a prolonged QTC there is a higher chance of arrhythmia and therefore also rationale for holding stimulant medication. Patient did appear to show understanding regarding rationale and overall felt supported. Today- Reports still feeling anxious. Sleep difficult and feeling nauseous. Intermittent hopelessness. No active SI. Will repeat EKG tomorrow. Otherwise, regarding medication regimen would like primary team to liaise with community provider Dr. Meli Patel after the weekend. Medication Compliance: Yes Side effects from medications: No Attending Groups: No Review of Systems Acute medical concerns: No Review of Systems Review of Systems Nausea today Mental Status Exam Mental Status Exam Narrative: Appearance: Lying in bed. Attitude: Cooperative Speech: Fluent and wnl in regard to volume, tone, prosody Motor activity: Calm and without any tics, tremors or dyskinesias. Mood: tired, anxious Affect: appropriate, constricted Thought process: goal directed and without evidence of formal thought disorder Thought content: intermittent hopelessness but no active SI Perception: Denies AH/VH and does not appear to respond to internal stimuli Oriented in all spheres Cognition grossly intact Insight: intact Judgment: intact Diagnostics Vital Signs (24Hr): Vital Signs - 24 hr 05/12/25 16:04 05/12/25 20:00 05/12/25 20:00 Temperature Pulse Rate Respiratory Rate Blood Pressure 132/61 167/68 H 167/68 H Pulse Oximetry Oxygen Delivery Method 05/12/25 20:00 05/13/25 07:52 Temperature 98.1 F 98.5 F Pulse Rate 71 89 Respiratory Rate 14 12 Blood Pressure 167/68 H 110/59 L Pulse Oximetry 99 98 Oxygen Delivery Method Room Air Room Air BMI result Body Mass Index 32.9 Labs 05/10/25 14:12 05/11/25 07:38 Labs: Laboratory Results - last 48 hr 05/11/25 05/12/25 05/13/25 19:23 07:44 07:27 POC Glucose 138 H 191 H Urine Color Yellow Urine Appearance Clear Urine pH 5.5 Ur Specific Higbee 1.025 Urine Protein Trace Urine Glucose (UA) Negative Urine Ketones Negative Urine Blood Negative Urine Nitrite Negative Ur Leukocyte Esterase Small (1+) H Urine RBC 0-2 Urine WBC 6-10 Ur Squamous Epith Cells 11-20 Calcium Oxalate Crystal Present Urine Bacteria 1+ Hyaline Casts 0-2 Urine Opiates Screen Not Detected Ur Buprenorphine Scrn Not Detected Ur Oxycodone Screen Not Detected Urine Methadone Screen Not Detected Urine Fentanyl Screen Not Detected Ur Barbiturates Screen Not Detected Ur Phencyclidine Scrn Not Detected Ur Amphetamines Screen Not Detected U Benzodiazepines Scrn POSITIVE H Urine Cocaine Screen Not Detected U Marijuana (THC) Screen Not Detected Medications Medications Current Medications Acetaminophen (Acetaminophen 325 Mg Tablet) 650 mg PO Q6H PRN PRN Reason: Headache/Pain, Scale 1-10 Al Hydroxide/Mg Hydroxide (Magnesium Hydrox/Alum Hydrox 30 Ml Oral.Susp) 30 ml PO Q6H PRN PRN Reason: Heartburn/Nausea Last Admin: 05/11/25 19:19 Dose: 30 ml Alprazolam (Alprazolam 0.5 Mg Tablet) 0.5 mg PO QID PRN PRN Reason: Anxiety Last Admin: 05/12/25 20:01 Dose: 0.5 mg Bisacodyl (Bisacodyl 5 Mg Tablet.Dr) 10 mg PO BEDTIME [facility] Last Admin: 05/12/25 20:01 Dose: 10 mg Brimonidine Tartrate (Brimonidine Tartrate 0.2% Oph 5 Ml Bottle) 1 drop EYE-RIGHT BID [facility] Last Admin: 05/13/25 08:03 Dose: 1 drop Dicyclomine HCl (Dicyclomine Hcl 10 Mg Capsule) 10 mg PO QID [facility] Last Admin: 05/13/25 08:00 Dose: 10 mg Famotidine (Famotidine 20 Mg Tablet) 40 mg PO BEDTIME [facility] Last Admin: 05/12/25 20:01 Dose: 40 mg Latanoprost (Latanoprost 0.005 % Ophth [place] 2.5 Ml Drops) 1 drop EYE-BOTH BID [facility] Last Admin: 05/13/25 08:47 Dose: 1 drop Magnesium Hydroxide (Milk Of Magnesia 30 Ml Oral.Susp) 30 ml PO DAILY PRN PRN Reason: Constipation Metformin HCl (Metformin Hcl 500 Mg Tablet) 500 mg PO BID [facility] Last Admin: 05/13/25 08:01 Dose: 500 mg Misoprostol (Misoprostol 200 Mcg Tablet) 200 mcg PO BID [facility] Last Admin: 05/13/25 08:01 Dose: 200 mcg Nicotine Polacrilex (Nicotine Polacrilex 2 Mg Gum) 2 mg BUCCAL Q2H PRN PRN Reason: Nicotine Cravings Non-Formulary Medication (Linaclotide [Linzess]) 290 mcg PO DAILY [facility] Non-Formulary Medication (Prucalopride) 2 mg PO DAILY [facility] Omeprazole (Omeprazole 20 Mg Capsule.Dr) 20 mg PO BID [facility] Last Admin: 05/13/25 08:01 Dose: 20 mg Polyethylene Glycol (Polyethylene Glycol 3350 17 Gm Powd.Pack) 17 gm PO DAILY [facility] Last Admin: 05/13/25 08:02 Dose: Not Given Prazosin HCl (Prazosin Hcl 1 Mg Capsule) 1 mg PO BEDTIME [facility] Last Admin: 05/12/25 20:00 Dose: 1 mg Prazosin HCl (Prazosin Hcl 5 Mg Capsule) 5 mg PO BEDTIME [facility] Last Admin: 05/12/25 20:00 Dose: 5 mg Prazosin HCl (Prazosin Hcl 1 Mg Capsule) 1 mg PO BID@0900,1600 [facility]; Protocol Last Admin: 05/13/25 08:00 Dose: 1 mg Senna (Sennosides 8.6 Mg Tablet) 17.2 mg PO BEDTIME [facility] Last Admin: 05/12/25 20:01 Dose: 17.2 mg Simethicone (Simethicone 80 Mg Tab.Chew) 160 mg PO QID [facility] Last Admin: 05/13/25 08:00 Dose: 160 mg Timolol Maleate (Timolol Maleate 0.5 % Oph [place] 5 Ml Drbtl) 1 drop EYE-RIGHT BID [facility] Last Admin: 05/13/25 09:03 Dose: 1 drop Venlafaxine HCl (Venlafaxine Hcl Er 150 Mg Cap.Er.24h) 150 mg PO DAILY [facility] Last Admin: 05/13/25 08:01 Dose: 150 mg Zolpidem Tartrate (Zolpidem Tartrate 5 Mg Tablet) 5 mg PO BEDTIME [facility] Last Admin: 05/12/25 20:02 Dose: 5 mg Zolpidem Tartrate (Zolpidem Tartrate 5 Mg Tablet) 5 mg PO BEDTIME PRN PRN Reason: Insomnia Allergies Allergies Allergy/AdvReac Type Severity Reaction Status Date / Time No Known Allergies (No Known Allergy Verified 05/10/25 14:27 Allergies*) Assessment & Plan Assessment & Plan (1) Delirium: Status: Acute Code(s): R41.0 - Disorientation, unspecified (2) Bipolar disorder with depression: Status: Acute Code(s): F31.9 - Bipolar disorder, unspecified (3) Trauma and stressor-related disorder: Status: Acute Code(s): F43.9 - Reaction to severe stress, unspecified Assessment and Plan: Ms. Mcintosh is a 69 yo F with h/o bipolar d/o, PTSD, delirium 2/2 UTI, Type II DM, HTN, GERD, fibromyalgia, celiac, pancreatitis, & ileus who was admitted to [facility] M[facility] due to AMS, hallucinations and SI. Mental status has significantly improved since this morning. Cause of AMS is unkown. UA is negative for UTI. Labs are unremarkable aside from mild elevation in AST/ALT and A1c of 6.1. Pt reports that the perceptual disturbances started before she stopped her meds, so this doesn't seem to be related to benzo w/d. Plan: Admitted to for safety/stabilization Legal status- CV Held methylphenidate today. Can re-start over the weekend if clinically appropriate. Lowered alprazolam to .5 mg QID prn for anxiety due to AMS and sedation today. Can increase dose back up to max of 1 mg 4x/day prn if clinically appropriate, given that pt has been filling her rx for 4 mg/day on a monthly basis for at least the past 2 yrs per [facility] [facility]. Lower zolpidem to 5 mg qhs as standing dose. Offer 5 mg prn for insomnia Hold hydroxyzine for now, given concerns for delirium Lower quetiapine standing dose to 200 mg at hs. Offer 100 mg bid prn for severe anxiety/agitation Continue venlafaxine XR 150 mg qd Left vm with pt's outpatient psychiatric provider for care coordination. She is out of the office on Fridays. Milieu therapy D/C planning 05/12/25: Qtc 570 on 05/11/25 at 7pm. Educated patient on rationale for discontinuing Seroquel, in spite being on high dose for almost 20 years. Also educated that stimulant in itself will not prolong QTC, but with a prolonged QTC there is a higher chance of arrhythmia and therefore also rationale for holding stimulant medication. Patient did appear to show understanding. Would like primary team to liaise with community provider Dr. Meli Patel ref med regimen after the weekend. 05/13/2025: No changes. Maalox for nausea given prolonged QTC. Will repeat EKG Wednesday05/14/2025. Otherwise, regarding medication regimen would like primary team to liaise with community provider Dr. Meli Patel after the weekend Reason for continued inpatient stay Substantial Risk for: rapid decompensation Time Spent With Patient Time: Total time managing care of this patient today ____ minutes.
--- NOTE | 2025-05-13 15:20 | PC.NURSE ---
Per provider plan to repeat EKG tomorrow AM.
[2025-05-13 15:56] VITALS: BP 114/63; PULSE 84
[2025-05-13 20:22] VITALS: BP 157/80; PULSE 77; RESP 18; TEMP 36.5; O2SAT 97
--- NOTE | 2025-05-14 | ECG_ITS ---
Test Reason : check qt Blood Pressure : */* mmHG Vent. Rate : 81 BPM Atrial Rate : 81 BPM P-R Int : 174 ms QRS Dur : 76 ms QT Int : 400 ms P-R-T Axes : 45 94 93 degrees QTcB Int : 464 ms Normal sinus rhythm Rightward axis Nonspecific T wave abnormality Abnormal ECG When compared with ECG of 11-May-2025 19:51, Nonspecific T wave abnormality, improved in Lateral leads QT has shortened Referred By: Maco Mcgee Electronically Signed By: VALERIE ROSS MD
[2025-05-14 07:05] VITALS: BP 134/71; PULSE 85; RESP 12; TEMP 36.4; O2SAT 98
[2025-05-14 07:43] LABS: Glucose, Whole Blood 171 mg/dL (60-115)
[2025-05-14 08:24] VITALS: BP 138/71
[2025-05-14] MEDS: Venlafaxine HCl ER 150 MG CAP.ER.24H PO (08:24)
[2025-05-14] MEDS: Latanoprost 0.005 % Ophth Sol 2.5 ML DROPS 1 DROP EYE-BOTH ×2 (08:45→20:21)
--- NOTE | 2025-05-14 09:03 | P.PNPSI_ITS ---
Subjective Subjective Date of Service: 05/14/25 Reason For Visit: Decomp, ST and AH Subjective Notes: 3 Day (Expires on 05/16) Interim History: Chart reviewed, case discussed in tx team. Per weekend notes-- QTc was elevated at 570 ms on evening of 05/11 and Seroquel was d/c'd. Stimulant also continued to be held 2/2 risk of arrhythmia. Prazosin was added for anxiety during the day. Denied hallucinations/SI. Signed 3 day, which will on 05/16 EKG from today- QTc 464 Took all of allotted prn alprazolam over the weekend (0.5 mg 4x/day, usual home dose is 1 mg 4x/day prn). She has been hypertensive over the weekend. Per phone call with pt's OP psychiatric provider, Meli Patel [employer] today- -The episode that led to this admission is predictable and happens every time she's supposed to go to [place]. Pt endorsed similar hallucinations when she tried to travel in the past and seem to be related to PTSD -she rx'd low dose risperidone to take the edge off but insurance wouldn't cover it, so pt never tried it. -has been fine/stable, no break-through psychosis until she went to the airport. Will therefore re-start Seroquel -pt has been on current med regimen for years and Ms Patel continued her on it when she was transferred to her care. Given that pt has been taking Xanax 4 mg consistently for yrs and she doesn't have delirium, will re-start her home dose Pt reports that she had a bad weekend since she didn't have my mood stabilizer and she has been unable to sleep since prior to admission. She endorses high anxiety. States she signed the 3-day so that she can resume her usual meds. She would be willing to reconsider the 3-day if she is able to re-start her med regimen, if a longer stay would be beneficial for her. She understands that the Seroquel was held due to concern about her heart rhythm and I told her that the QTc was normal today, so I will re-start her on a low dose of Seroquel and adjust as appropriate. She confirmed that she has experienced similar episodes when trying to fly but didn't go into detail. She doesn't recall being on the plane but her daughter told her that she had to leave the plane due to getting sick. Pt reports that she's been eating too much since she's been here. Mental Status Exam Mental Status Exam Narrative: Appearance:lying in bed, casual, good eye contact Attitude:Cooperative Speech: Fluent and wnl in regard to volume, tone, prosody Motor activity: Calm and without any tics, tremors or dyskinesias. Mood: as noted above Affect: appropriate, reactive, brightens up appropriately Thought process: goal directed and without evidence of formal thought disorder Thought content: as noted above. denies SI Perception: Denies AH/VH and does not appear to respond to internal stimuli Alert/oriented in all spheres Cognition grossly intact Insight: intact Judgment: intact Diagnostics Vital Signs (24Hr): Vital Signs - 24 hr 05/13/25 15:56 05/13/25 20:22 05/14/25 07:05 Temperature 97.7 F 97.6 F Pulse Rate 84 77 85 Respiratory Rate 18 12 Blood Pressure 114/63 157/80 H 134/71 Pulse Oximetry 97 98 Oxygen Delivery Method Room Air Room Air 05/14/25 08:24 Temperature Pulse Rate Respiratory Rate Blood Pressure 138/71 Pulse Oximetry Oxygen Delivery Method BMI result Body Mass Index 32.9 Labs 05/10/25 14:12 05/11/25 07:38 Labs: Laboratory Results - last 48 hr 05/13/25 05/14/25 07:27 07:32 POC Glucose 191 H 171 H Medications Medications Current Medications Acetaminophen (Acetaminophen 325 Mg Tablet) 650 mg PO Q6H PRN PRN Reason: Headache/Pain, Scale 1-10 Al Hydroxide/Mg Hydroxide (Magnesium Hydrox/Alum Hydrox 30 Ml Oral.Susp) 30 ml PO Q6H PRN PRN Reason: Heartburn/Nausea Last Admin: 05/11/25 19:19 Dose: 30 ml Alprazolam (Alprazolam 0.5 Mg Tablet) 0.5 mg PO QID PRN PRN Reason: Anxiety Last Admin: 05/14/25 08:45 Dose: 0.5 mg Bisacodyl (Bisacodyl 5 Mg Tablet.Dr) 10 mg PO BEDTIME [facility] Last Admin: 05/13/25 20:28 Dose: 10 mg Brimonidine Tartrate (Brimonidine Tartrate 0.2% Oph 5 Ml Bottle) 1 drop EYE- RIGHT BID [facility] Last Admin: 05/13/25 20:26 Dose: 1 drop Dicyclomine HCl (Dicyclomine Hcl 10 Mg Capsule) 10 mg PO QID [facility] Last Admin: 05/14/25 08:24 Dose: 10 mg Famotidine (Famotidine 20 Mg Tablet) 40 mg PO BEDTIME [facility] Last Admin: 05/13/25 20:31 Dose: 40 mg Latanoprost (Latanoprost 0.005 % Ophth [place] 2.5 Ml Drops) 1 drop EYE-BOTH BID [facility] Last Admin: 05/14/25 08:45 Dose: 1 drop Magnesium Hydroxide (Milk Of Magnesia 30 Ml Oral.Susp) 30 ml PO DAILY PRN PRN Reason: Constipation Metformin HCl (Metformin Hcl 500 Mg Tablet) 500 mg PO BID [facility] Last Admin: 05/14/25 08:24 Dose: 500 mg Misoprostol (Misoprostol 200 Mcg Tablet) 200 mcg PO BID [facility] Last Admin: 05/14/25 08:24 Dose: 200 mcg Nicotine Polacrilex (Nicotine Polacrilex 2 Mg Gum) 2 mg BUCCAL Q2H PRN PRN Reason: Nicotine Cravings Non-Formulary Medication (Linaclotide [Linzess]) 290 mcg PO DAILY [facility] Non-Formulary Medication (Prucalopride) 2 mg PO DAILY [facility] Omeprazole (Omeprazole 20 Mg Capsule.Dr) 20 mg PO BID [facility] Last Admin: 05/14/25 08:24 Dose: 20 mg Polyethylene Glycol (Polyethylene Glycol 3350 17 Gm Powd.Pack) 17 gm PO DAILY [facility] Last Admin: 05/14/25 08:27 Dose: Not Given Prazosin HCl (Prazosin Hcl 1 Mg Capsule) 1 mg PO BEDTIME [facility] Last Admin: 05/13/25 20:30 Dose: 1 mg Prazosin HCl (Prazosin Hcl 5 Mg Capsule) 5 mg PO BEDTIME [facility] Last Admin: 05/13/25 20:30 Dose: 5 mg Prazosin HCl (Prazosin Hcl 1 Mg Capsule) 1 mg PO BID@0900,1600 [facility]; Protocol Last Admin: 05/14/25 08:24 Dose: 1 mg Senna (Sennosides 8.6 Mg Tablet) 17.2 mg PO BEDTIME [facility] Last Admin: 05/13/25 20:30 Dose: 17.2 mg Simethicone (Simethicone 80 Mg Tab.Chew) 160 mg PO QID [facility] Last Admin: 05/14/25 08:24 Dose: 160 mg Timolol Maleate (Timolol Maleate 0.5 % Oph [place] 5 Ml Drbtl) 1 drop EYE-RIGHT BID [facility] Last Admin: 05/13/25 20:52 Dose: 1 drop Venlafaxine HCl (Venlafaxine Hcl Er 150 Mg Cap.Er.24h) 150 mg PO DAILY [facility] Last Admin: 05/14/25 08:24 Dose: 150 mg Zolpidem Tartrate (Zolpidem Tartrate 5 Mg Tablet) 5 mg PO BEDTIME [facility] Last Admin: 05/13/25 20:31 Dose: 5 mg Zolpidem Tartrate (Zolpidem Tartrate 5 Mg Tablet) 5 mg PO BEDTIME PRN PRN Reason: Insomnia Allergies Allergies Allergy/AdvReac Type Severity Reaction Status Date / Time No Known Allergies (No Known Allergy Verified 05/10/25 14:27 Allergies*) Assessment & Plan Assessment & Plan (1) Delirium: Status: Acute Code(s): R41.0 - Disorientation, unspecified (2) Bipolar disorder with depression: Status: Acute Code(s): F31.9 - Bipolar disorder, unspecified (3) Trauma and stressor-related disorder: Status: Acute Code(s): F43.9 - Reaction to severe stress, unspecified Assessment and Plan: Ms. Mcintosh is a 69 yo F with h/o bipolar d/o, PTSD, delirium 2/2 UTI, Type II DM, HTN, GERD, fibromyalgia, celiac, pancreatitis, & ileus who was admitted to [facility] due to AMS, hallucinations and SI. Mental status has significantly improved since this morning. Cause of AMS is unkown. UA is negative for UTI. Labs are unremarkable aside from mild elevation in AST/ALT and A1c of 6.1. Pt reports that the perceptual disturbances started before she stopped her meds, so this doesn't seem to be related to benzo w/d. Plan: Admitted to for safety/stabilization Legal status- 3-day expires 05/16 Left vm with pt's outpatient psychiatric provider for care coordination. She is out of the office on Fridays. Milieu therapy D/C planning 05/12/25: Qtc 570 on 10/3/25 at 7pm. Educated patient on rationale for discontinuing Seroquel, in spite being on high dose for almost 20 years. Also educated that stimulant in itself will not prolong QTC, but with a prolonged QTC there is a higher chance of arrhythmia and therefore also rationale for holding stimulant medication. Patient did appear to show understanding. Would like primary team to liaise with community provider Dr. Meli Patel ref med regimen after the weekend. 05/13/2025: No changes. Maalox for nausea given prolonged QTC. Will repeat EKG Wednesday05/14/2025. Otherwise, regarding medication regimen would like primary team to liaise with community provider Dr. Meli Patel after the weekend 05/14/25: QTc has shortened- now at 464 msec (with Seroquel being held over the weekend). Will check Mg, Ca++, re-check lytes. Pt was hypokalemic on day of admission, which could have contributed to prolonged QTC, normalized on day after admission (hypokelamia may have been 2/2 poor po intake prior to admission). Case discussed with Meli Patel [employer] today. Per my discussion w/ Ms. Patel and pt and since pt has been hypertensive (which could be c/w benzo w/d- will increase alprazolam back to 1 mg 4x/day prn. Will start Seroquel 50 mg qd at 12:30 pm and 100 mg at bedtime. Will re-check EKG tomorrow am. Patient educated on: medication risk/benefits and medical condition Informed Consent: understands Reason for continued inpatient stay Substantial Risk for: med/psych decompensation Time Spent With Patient Time: Total time managing care of this patient today __40__ minutes.
[2025-05-14] MEDS: timoloL maleate 0.5 % Oph Sol 5 ML DRBTL 1 DROP EYE-RIGHT ×2 (09:06→20:35)
[2025-05-14] MEDS: Brimonidine Tartrate 0.2% Oph 5 ML BOTTLE 1 DROP EYE-RIGHT ×2 (09:17→20:12)
[2025-05-14 14:46] LABS: Anion Gap 11 (12-20); Calcium 9.4 mg/dL (8.4-10.2); Carbon Dioxide 28 mmol/L (22-29); Chloride 105 mmol/L (96-108); Magnesium 1.7 mg/dL (1.6-2.6); Potassium 3.2 mmol/L (3.3-5.1); Sodium 141 mmol/L (135-145)
[2025-05-14 15:39] VITALS: BP 105/63
[2025-05-14 20:00] VITALS: BP 103/63; PULSE 100; RESP 18; TEMP 37.1; O2SAT 99
--- NOTE | 2025-05-15 07:00 | ECG_ITS ---
Test Reason : QTC PROLONG Blood Pressure : */* mmHG Vent. Rate : 90 BPM Atrial Rate : 90 BPM P-R Int : 184 ms QRS Dur : 78 ms QT Int : 474 ms P-R-T Axes : 38 100 93 degrees QTcB Int : 579 ms Normal sinus rhythm Rightward axis Prolonged QT Borderline ECG When compared with ECG of 14-May-2025 09:00, QT has lengthened Referred By: Ellen Dubon Electronically Signed By: VALERIE ROSS MD
[2025-05-15 07:28] VITALS: BP 113/60; PULSE 87; RESP 20; TEMP 37.1; O2SAT 98
[2025-05-15 07:39] LABS: Glucose, Whole Blood 193 mg/dL (60-115)
[2025-05-15] MEDS: Latanoprost 0.005 % Ophth Sol 2.5 ML DROPS 1 DROP EYE-BOTH ×2 (09:00→21:03)
[2025-05-15] MEDS: Venlafaxine HCl ER 150 MG CAP.ER.24H PO (09:02)
[2025-05-15] MEDS: Brimonidine Tartrate 0.2% Oph 5 ML BOTTLE 1 DROP EYE-RIGHT ×2 (09:19→21:02)
[2025-05-15] MEDS: timoloL maleate 0.5 % Oph Sol 5 ML DRBTL 1 DROP EYE-RIGHT ×2 (09:37→21:06)
--- NOTE | 2025-05-15 12:04 | P.CONCA_ITS ---
History of Present Illness History of Present Illness Date of Service: 05/15/25 Requesting physician: Ellen Dubon Consult reason: other (Abnormal EKGs) Chief complaint: Decomp, ST and AH Narrative: I was consulted to see Makenna in cardiology consultation due to prolonged QT. In his 69 year female with prior history of hypertension, diabetes, mood disorder as well as anxiety/depression admitted to the hospital with decompensation. Admission EKGs showed QT prolongation. Patient was 800 mg of Seroquel at home. Although she has multiple medications currently which can potentially prolonged QT. Her Seroquel was withheld on admission with normalization of the QT interval as measured. Subsequently she was rechallenged with low-dose Seroquel yesterday and EKGs done today shows again QT prolongation. Also noted to have mild hypokalemia at 3.2 as well as mild hypomagnesemia at 1.7. Patient is currently not on any diuretic regimen. Cardiology consult was sought because of QTC prolongation. Review of Systems 2 Constitutional: Constitutional: Reports no additional constitutional complaints Eyes: Eyes: Reports no additional eye complaints Cardiovascular: Cardiovascular: Reports no additional cardiovascular complaints Respiratory: Respiratory: Reports no additional respiratory complaints Gastrointestinal: Gastrointestinal: Reports no additional gastrointestinal complaints Genitourinary: Genitourinary: Reports no additional female genitourinary complaints Musculoskeletal: Musculoskeletal: Reports no additional musculoskeletal complaints Integumentary/Breasts: Skin/Breast: Reports system reviewed and no additional complaints, except as docu Neurologic: Reports system reviewed and no additional complaints, except as documented Psychiatric: Psychiatric: Reports anxiety and Reports mood swings PMFSH Past Medical History Medical History Bipolar disorder PTSD (post-traumatic stress disorder) Depression Anxiety Fibromyalgia Schizophrenia Anemia Ileus Tubular adenoma of colon History of pancreatitis Irritable bowel syndrome with constipation Diverticulitis GERD (gastroesophageal reflux disease) Chronic idiopathic constipation Family History Family History Father No problems noted. Mother Diabetes Melanoma Family history of hypertension Family history of diabetes mellitus Surgical History Surgical History History of esophagogastroduodenoscopy (EGD) Hx of colonoscopy Social History Social History Household Members: Spouse Housing: Unknown / Unable to assess Are you a primary physician assistant primary care to a significant other at home: No Do you presently have visiting nurse or other home services: No Alcohol intake: never Patient Tobacco Use Status: Never used Tobacco Second Hand Smoke Exposure: No Currently Displaying Signs/Symptoms of Drug Intoxication Withdrawal: No Advance Directives: No Advance Directives Information Provided: Yes Do you have thoughts of harming others: None Do you have a plan to hurt others: No Plan Recently lost weight without trying: Unsure How much weight loss: Not applicable Eating poorly because of decreased appetite: No Nutrition screen score: 2 Nutrition Risks: Poor intake 0-25% >4 days Patient : No : No service: No Current occupational status: disabled Sexual orientation: Straight/Heterosexual Meds Allergies Allergy/AdvReac Type Severity Reaction Status Date / Time No Known Allergies (No Known Allergy Verified 05/10/25 14:27 Allergies*) Active Medications: Current Medications Acetaminophen (Acetaminophen 325 Mg Tablet) 650 mg PO Q6H PRN PRN Reason: Headache/Pain, Scale 1-10 Al Hydroxide/Mg Hydroxide (Magnesium Hydrox/Alum Hydrox 30 Ml Oral.Susp) 30 ml PO Q6H PRN PRN Reason: Heartburn/Nausea Last Admin: 05/11/25 19:19 Dose: 30 ml Alprazolam (Alprazolam 0.5 Mg Tablet) 1 mg PO QID PRN PRN Reason: Anxiety Last Admin: 05/14/25 20:19 Dose: 1 mg Bisacodyl (Bisacodyl 5 Mg Tablet.Dr) 10 mg PO BEDTIME [facility] Last Admin: 05/14/25 20:19 Dose: 10 mg Brimonidine Tartrate (Brimonidine Tartrate 0.2% Oph 5 Ml Bottle) 1 drop EYE- RIGHT BID [facility] Last Admin: 05/15/25 09:19 Dose: 1 drop Dicyclomine HCl (Dicyclomine Hcl 10 Mg Capsule) 10 mg PO QID [facility] Last Admin: 05/15/25 09:19 Dose: 10 mg Famotidine (Famotidine 20 Mg Tablet) 40 mg PO BEDTIME [facility] Last Admin: 05/14/25 20:21 Dose: 40 mg Latanoprost (Latanoprost 0.005 % Ophth [place] 2.5 Ml Drops) 1 drop EYE-BOTH BID [facility] Last Admin: 05/15/25 09:00 Dose: 1 drop Magnesium Hydroxide (Milk Of Magnesia 30 Ml Oral.Susp) 30 ml PO DAILY PRN PRN Reason: Constipation Metformin HCl (Metformin Hcl 500 Mg Tablet) 500 mg PO BID [facility] Last Admin: 05/15/25 09:02 Dose: 500 mg Misoprostol (Misoprostol 200 Mcg Tablet) 200 mcg PO BID [facility] Last Admin: 05/15/25 09:01 Dose: 200 mcg Nicotine Polacrilex (Nicotine Polacrilex 2 Mg Gum) 2 mg BUCCAL Q2H PRN PRN Reason: Nicotine Cravings Non-Formulary Medication (Linaclotide [Linzess]) 290 mcg PO DAILY [facility] Non-Formulary Medication (Prucalopride) 2 mg PO DAILY [facility] Omeprazole (Omeprazole 20 Mg Capsule.Dr) 20 mg PO BID [facility] Last Admin: 05/15/25 09:01 Dose: 20 mg Polyethylene Glycol (Polyethylene Glycol 3350 17 Gm Powd.Pack) 17 gm PO DAILY PRN PRN Reason: constipation Prazosin HCl (Prazosin Hcl 1 Mg Capsule) 1 mg PO BEDTIME [facility] Last Admin: 05/14/25 20:20 Dose: 1 mg Prazosin HCl (Prazosin Hcl 5 Mg Capsule) 5 mg PO BEDTIME [facility] Last Admin: 05/14/25 20:19 Dose: 5 mg Prazosin HCl (Prazosin Hcl 1 Mg Capsule) 1 mg PO BID@0900,1600 [facility]; Protocol Last Admin: 05/15/25 09:01 Dose: 1 mg Senna (Sennosides 8.6 Mg Tablet) 17.2 mg PO BEDTIME [facility] Last Admin: 05/14/25 20:20 Dose: 17.2 mg Simethicone (Simethicone 80 Mg Tab.Chew) 160 mg PO QID [facility] Last Admin: 05/15/25 09:03 Dose: 160 mg Timolol Maleate (Timolol Maleate 0.5 % Oph [place] 5 Ml Drbtl) 1 drop EYE-RIGHT BID [facility] Last Admin: 05/15/25 09:37 Dose: 1 drop Venlafaxine HCl (Venlafaxine Hcl Er 150 Mg Cap.Er.24h) 150 mg PO DAILY [facility] Last Admin: 05/15/25 09:02 Dose: 150 mg Zolpidem Tartrate (Zolpidem Tartrate 5 Mg Tablet) 5 mg PO BEDTIME [facility] Last Admin: 05/14/25 20:19 Dose: 5 mg Zolpidem Tartrate (Zolpidem Tartrate 5 Mg Tablet) 5 mg PO BEDTIME PRN PRN Reason: Insomnia Home Medications ?Medication ?Instructions ?Recorded ?Confirmed ?Last Taken ?Type brimonidine 0.2 %-timolol 0.5 % 1 drp ophthalmic-Right BID 12/13/21 05/10/25 05/07/25 History eye drops (Combigan) latanoprost 0.005 % eye drops 1 drp ophthalmic (eye) B ID 11/10/22 05/10/25 05/07/25 History alprazolam 1 mg tablet 1 mg PO QID PRN Anxiety 10/3005/10/25 Unknown History hydroxyzine pamoate 50 mg capsule 50 mg PO BID PRN Anx iety 07/11/24 05/10/25 Unknown History methylphenidate HCl 20 mg 20 mg PO BID 07/11/2405/07/25 History tablet,extended release quetiapine 400 mg tablet,extended 400 mg PO BEDTIME 05/10/25 05/07/25 History release 24 hr venlafaxine 75 mg capsule,extended 150 mg PO DAILY 10/3005/10/25 05/07/25 History release 24 hr zolpidem 10 mg tablet 10 mg PO BEDTIME PRN Insomni a 07/11/24 05/10/25 Unknown History metformin 500 mg tablet 500 mg PO BID 11/23/2405/1005/07/25 History Physical Exam 2 Vital Signs: Vital Signs: Last Vital Signs Temp 98.7 F 05/15/25 07:28 Pulse 87 05/15/25 07:28 Resp 20 05/15/25 07:28 BP 113/60 05/15/25 07:28 Pulse Ox 98 05/15/25 07:28 O2 Del Method Room Air 05/15/25 07:28 BMI result Body Mass Index 32.9 Const: General: cooperative, comfortable, no acute distress, alert and awake Nutritional Appearance: overweight Orientation/consciousness: patient oriented x3 Limitations: no limitations HEENT: Head: Yes normocephalic and Yes atraumatic Neck: Neck: Yes trachea midline, Yes supple and Yes no JVD Resp: Effort & Inspection: normal respiratory effort Auscultation: clear to auscultation bilaterally Cardio: Jugular venous distension: no JVD Palpation: normal PMI Rate: r egular rate Rhythm: regular rhythm Heart sounds: S1 normal heart sound present, S2 normal heart sound present, no click, no gallops and no murmurs GI: Auscultation: normal bowel sounds Skin: General skin exam: no rashes or lesions noted Neuro: General: patient oriented x3 and no focal motor deficits Extrem: General: Yes no clubbing, cyanosis or edema Objective Labs and Meds 05/10/25 14:12 05/14/25 14:01 Lab results: Laboratory Results - last 24 hr 05/14/25 05/15/25 14:01 07:29 Sodium 141 Potassium 3.2 L Chloride 105 Carbon Dioxide 28 Anion Gap 11 L POC Glucose 193 H Calcium 9.4 D Magnesium 1.7 Assessment and Plan (1) QT prolongation: Status: Acute QT prolongation this elderly woman clearly related to a what appears to be Seroquel use. Patient on admission however seems to be on multiple medications that could be potentially prolonged QT interval. However Seroquel was withdrawn with normalization of QT interval. After reintroduction of Seroquel at a low- dose she again had QT prolongation. Discussed with the patient and says that she requires some medication for mood stabilization. Consider using medications that potentially do not cause significant QT prolongation. She understands the risk associated with QT prolongation did explain to her about risk of pro arrhythmias. She attest that she does not want to have significant risk associated with medications although she says she will need some medications do help with her mood swings and psychiatric health. Risks and benefits need to be balance. For now I would withdrawal Seroquel therapy. Replace her potassium and magnesium to potassium above 4 and magnesium above 2. With every medication introduction that can potentially length and QT interval please perform EKGs the following day. Titrate medications accordingly. Will sign of the case. Thank you for allowing me to partake in her care Procedures Date of Service Date of Service: 05/15/25
[2025-05-15 15:38] VITALS: BP 114/74
[2025-05-15] MEDS: Milk of Magnesia 30 ML ORAL.SUSP PO (15:42)
--- NOTE | 2025-05-15 18:14 | P.PNPSI_ITS ---
Subjective Subjective Date of Service: 05/15/25 Reason For Visit: Decomp, ST and AH Subjective Notes: Conditional Voluntary Interim History: Chart reviewed, case discussed with team. EKG was prolonged at 579 ms this am after re-starting Seroquel total of 150 mg yesterday. Pt was seen by cardiology today- recommended d/c'ing Seroquel for now, replace K+ to above 4, Mg++ to above 2; monitor QTc if new QTc prolonging agents are added to her regimen. Pt was amenable to rescinding her 3-day note in order to adjust her meds while monitoring QTc She does feel better after increasing xanax back to usual home dose of 1 mg 4x/day and her BP has been wnl. She states that the Seroquel had hellped w/ mood stabilization/anxiety and she needs a med to replace it. Had tried risperidone in the past- caused weight gain/tachycardia, Abilify- can't recall response. She doesn't want to take a med that could increase her appetite agian. Hasn't tried lamotrigine and willing to try it. She reports that she was last in [place] 2 yrs ago and had a nice time. She denies that going to the airport/airplane or to [place] is particularly anxiety provoking. She recalls feeling sick on the plane but most of it was a blur. Endorses longstanding issues w/ memory, in the setting of freq dissociative episodes. She gets confused as to what is real at times due to vivid flashbacks when she closes her eyes. Endorses nightmares. agreeable w/ titrating prazosin Denies current SI Medication Compliance: Yes Attending Groups: No Mental Status Exam Mental Status Exam Narrative: Appearance:lying in bed, casual, good eye contact Attitude:Cooperative Speech: Fluent and wnl in regard to volume, tone, prosody Motor activity: Calm and without any tics, tremors or dyskinesias. Mood: anxious but better Affect: appropriate, reactive, brightens up appropriately Thought process: goal directed and without evidence of formal thought disorder Thought content: as noted above. denies SI Perception: does not appear to respond to internal stimuli Alert/oriented in all spheres Cognition grossly intact Insight: intact Judgment: intact Diagnostics Vital Signs (24Hr): Vital Signs - 24 hr 05/14/25 20:00 05/15/25 07:28 05/15/25 15:38 Temperature 98.7 F 98.7 F Pulse Rate 100 87 Respiratory Rate 18 20 Blood Pressure 103/63 113/60 114/74 Pulse Oximetry 99 98 Oxygen Delivery Method Room Air Room Air BMI result Body Mass Index 32.9 Labs 05/10/25 14:12 05/14/25 14:01 Labs: Laboratory Results - last 48 hr 05/14/25 05/14/25 05/15/25 07:32 14:01 07:29 Sodium 141 Potassium 3.2 L Chloride 105 Carbon Dioxide 28 Anion Gap 11 L POC Glucose 171 H 193 H Calcium 9.4 D Magnesium 1.7 EKG EKG: reviewed Medications Medications Current Medications Acetaminophen (Acetaminophen 325 Mg Tablet) 650 mg PO Q6H PRN PRN Reason: Headache/Pain, Scale 1-10 Al Hydroxide/Mg Hydroxide (Magnesium Hydrox/Alum Hydrox 30 Ml Oral.Susp) 30 ml PO Q6H PRN PRN Reason: Heartburn/Nausea Last Admin: 05/11/25 19:19 Dose: 30 ml Alprazolam (Alprazolam 0.5 Mg Tablet) 1 mg PO QID PRN PRN Reason: Anxiety Last Admin: 05/14/25 20:19 Dose: 1 mg Bisacodyl (Bisacodyl 5 Mg Tablet.Dr) 10 mg PO BEDTIME [facility] Last Admin: 05/14/25 20:19 Dose: 10 mg Brimonidine Tartrate (Brimonidine Tartrate 0.2% Oph 5 Ml Bottle) 1 drop EYE- RIGHT BID [facility] Last Admin: 05/15/25 09:19 Dose: 1 drop Dicyclomine HCl (Dicyclomine Hcl 10 Mg Capsule) 10 mg PO QID [facility] Last Admin: 05/15/25 18:04 Dose: 10 mg Famotidine (Famotidine 20 Mg Tablet) 40 mg PO BEDTIME [facility] Last Admin: 05/14/25 20:21 Dose: 40 mg Lamotrigine (Lamotrigine 25 Mg Tablet) 25 mg PO BEDTIME [facility] Latanoprost (Latanoprost 0.005 % Ophth [place] 2.5 Ml Drops) 1 drop EYE-BOTH BID [facility] Last Admin: 05/15/25 09:00 Dose: 1 drop Magnesium Hydroxide (Milk Of Magnesia 30 Ml Oral.Susp) 30 ml PO DAILY PRN PRN Reason: Constipation Last Admin: 05/15/25 15:42 Dose: 30 ml Metformin HCl (Metformin Hcl 500 Mg Tablet) 500 mg PO BID [facility] Last Admin: 05/15/25 09:02 Dose: 500 mg Misoprostol (Misoprostol 200 Mcg Tablet) 200 mcg PO BID [facility] Last Admin: 05/15/25 09:01 Dose: 200 mcg Nicotine Polacrilex (Nicotine Polacrilex 2 Mg Gum) 2 mg BUCCAL Q2H PRN PRN Reason: Nicotine Cravings Non-Formulary Medication (Linaclotide [Linzess]) 290 mcg PO DAILY [facility] Non-Formulary Medication (Prucalopride) 2 mg PO DAILY [facility] Omeprazole (Omeprazole 20 Mg Capsule.Dr) 20 mg PO BID [facility] Last Admin: 05/15/25 09:01 Dose: 20 mg Polyethylene Glycol (Polyethylene Glycol 3350 17 Gm Powd.Pack) 17 gm PO DAILY PRN PRN Reason: constipation Prazosin HCl (Prazosin Hcl 5 Mg Capsule) 5 mg PO BEDTIME [facility] Last Admin: 05/14/25 20:19 Dose: 5 mg Prazosin HCl (Prazosin Hcl 1 Mg Capsule) 1 mg PO BID@0900,1600 [facility]; Protocol Last Admin: 05/15/25 15:38 Dose: 1 mg Prazosin HCl (Prazosin Hcl 1 Mg Capsule) 2 mg PO BEDTIME [facility] Senna (Sennosides 8.6 Mg Tablet) 17.2 mg PO BEDTIME [facility] Last Admin: 05/14/25 20:20 Dose: 17.2 mg Simethicone (Simethicone 80 Mg Tab.Chew) 160 mg PO QID [facility] Last Admin: 05/15/25 18:05 Dose: 160 mg Timolol Maleate (Timolol Maleate 0.5 % Oph [place] 5 Ml Drbtl) 1 drop EYE-RIGHT BID [facility] Last Admin: 05/15/25 09:37 Dose: 1 drop Venlafaxine HCl (Venlafaxine Hcl Er 150 Mg Cap.Er.24h) 150 mg PO DAILY [facility] Last Admin: 05/15/25 09:02 Dose: 150 mg Zolpidem Tartrate (Zolpidem Tartrate 5 Mg Tablet) 5 mg PO BEDTIME [facility] Last Admin: 05/14/25 20:19 Dose: 5 mg Zolpidem Tartrate (Zolpidem Tartrate 5 Mg Tablet) 5 mg PO BEDTIME PRN PRN Reason: Insomnia Allergies Allergies Allergy/AdvReac Type Severity Reaction Status Date / Time No Known Allergies (No Known Allergy Verified 05/10/25 14:27 Allergies*) Assessment & Plan Assessment & Plan (1) PTSD (post-traumatic stress disorder): Status: Acute Code(s): F43.10 - Post-traumatic stress disorder, unspecified (2) Bipolar disorder with depression: Status: Acute Code(s): F31.9 - Bipolar disorder, unspecified (3) QT prolongation: Status: Acute Code(s): R94.31 - Abnormal electrocardiogram [ECG] [EKG] Assessment and Plan: QT prolongation this elderly woman clearly related to a what appears to be Seroquel use. Patient on admission however seems to be on multiple medications that could be potentially prolonged QT interval. However Seroquel was withdrawn with normalization of QT interval. After reintroduction of Seroquel at a low- dose she again had QT prolongation. Discussed with the patient and says that she requires some medication for mood stabilization. Consider using medications that potentially do not cause significant QT prolongation. She understands the risk associated with QT prolongation did explain to her about risk of pro arrhythmias. She attest that she does not want to have significant risk associated with medications although she says she will need some medications do help with her mood swings and psychiatric health. Risks and benefits need to be balance. For now I would withdrawal Seroquel therapy. Replace her potassium and magnesium to potassium above 4 and magnesium above 2. With every medication introduction that can potentially length and QT interval please perform EKGs the following day. Titrate medications accordingly. Will sign of the case. Thank you for allowing me to partake in her care (4) Suicidal ideation: Status: Acute Code(s): R45.851 - Suicidal ideations Plan Ms. Mcintosh is a 69 yo F with h/o bipolar d/o, PTSD, delirium 2/2 UTI, Type II DM, HTN, GERD, fibromyalgia, celiac, pancreatitis, & ileus who was admitted to [facility] due to AMS, hallucinations and SI. Pt was admitted w/ preliminary dx of delirium but there were no acute medical issues (UA neg for UTI) and collateral contact with pt's OP carpet installation specialist indicated that pt has had similar presentations when trips were planned to go to Plan: Admitted to for safety/stabilization Legal status- -3-----d-a-y- -a-[id number]- -W-e-d- -1-0-/-8- - - Retracted 3- day on 05/15, back on CV 05/12/25: Qtc 570 on 05/11/25 at 7pm. Educated patient on rationale for discontinuing Seroquel, in spite being on high dose for almost 20 years. Also educated that stimulant in itself will not prolong QTC, but with a prolonged QTC there is a higher chance of arrhythmia and therefore also rationale for holding stimulant medication. Patient did appear to show understanding. Would like primary team to liaise with community provider Dr. Meli Patel ref med regimen after the weekend. 05/13/2025: No changes. Maalox for nausea given prolonged QTC. Will repeat EKG Wednesday05/14/2025. Otherwise, regarding medication regimen would like primary team to liaise with community provider Dr. Meli Patel after the weekend 05/14/25: QTc has shortened- now at 464 msec (with Seroquel being held over the weekend). Will check Mg, Ca++, re-check lytes. Pt was hypokalemic on day of admission, which could have contributed to prolonged QTC, normalized on day after admission (hypokelamia may have been 2/2 poor po intake prior to admission). Case discussed with Meli Patel TRAILHEAD CONSTRUCTION WORKER today. Per my discussion w/ Ms. Patel and pt and since pt has been hypertensive (which could be c/w benzo w/d- will increase alprazolam back to 1 mg 4x/day prn. Will start Seroquel 50 mg qd at 12:30 pm and 100 mg at bedtime. Will re-check EKG tomorrow am. 05/15/25: Retracted 3-day. Seroquel was d/c'd due to recurrent QTc prolongation. Seen by cardology, appreciate recs (see above). Pt was agreeable w plan to start lamotrigine for tx of bipolar d/o. Reviewed med r/b/a, including risk of rare but potentially life threatening SJS. Advised pt to contact her psychiatrist before re-starting the med if she goes without it for >2 days and to titrate the dose as instructed. Pt expressed an understanding. Will also titrate prazosin to 7 mg at hs to target nightmares. Otherwise continue current plan Patient educated on: medication risk/benefits and medical condition Informed Consent: understands Reason for continued inpatient stay Substantial Risk for: med/psych decompensation Time Spent With Patient Time: Total time managing care of this patient today ___45_ minutes.
[2025-05-15 20:32] VITALS: BP 122/68; PULSE 83; RESP 18; TEMP 36.6
[2025-05-15 21:05] VITALS: BP 122/68
[2025-05-16 07:49] LABS: Glucose, Whole Blood 173 mg/dL (60-115)
[2025-05-16 08:30] VITALS: BP 115/63; PULSE 88; RESP 14; TEMP 36.5; O2SAT 99
[2025-05-16] MEDS: Venlafaxine HCl ER 150 MG CAP.ER.24H PO (08:32)
[2025-05-16 08:33] VITALS: BP 115/63
[2025-05-16] MEDS: Latanoprost 0.005 % Ophth Sol 2.5 ML DROPS 1 DROP EYE-BOTH ×2 (08:36→20:30)
[2025-05-16] MEDS: Brimonidine Tartrate 0.2% Oph 5 ML BOTTLE 1 DROP EYE-RIGHT ×2 (08:56→20:42)
[2025-05-16] MEDS: timoloL maleate 0.5 % Oph Sol 5 ML DRBTL 1 DROP EYE-RIGHT ×2 (09:20→20:12)
--- NOTE | 2025-05-16 18:50 | P.PNPSI_ITS ---
Subjective Subjective Date of Service: 05/16/25 Reason For Visit: Decomp, ST and AH Subjective Notes: Conditional Voluntary Interim History: chart reviewed, case discussed with tx team Per SW's communication w/ pt's daughter, pt did well with ECT in the past. Pt reportedly has a h/o aggressive behavior when she has been off of a mood stabilizer. Pt states that she had multiple ECT tx in the past, which eventually helped, but she experienced significant memory impairment that improved over time. She does not want to undergo ECT again at this time. She asked about trying Vraylar, as she reportedly discussed it with her psychometric examiner. She reports that she's feeling 'the same' today--- depressed, anxious. Denies current SI. Reports poor sleep Denies med SE Medication Compliance: Yes Attending Groups: No Mental Status Exam Mental Status Exam Narrative: Appearance:lying in bed, casual, good eye contact Attitude: Cooperative Speech: Fluent and wnl in regard to volume, tone, prosody Motor activity: Calm and without any tics, tremors or dyskinesias. Mood: as noted above Affect: appropriate, reactive, brightens up appropriately Thought process: goal directed and without evidence of formal thought disorder Thought content: as noted above. denies SI Perception: endorses chronic AH. does not appear to respond to internal stimuli Alert/oriented in all spheres Cognition grossly intact Insight: intact Judgment: intact Diagnostics Vital Signs (24Hr): Vital Signs - 24 hr 05/15/25 20:32 05/15/25 21:05 05/15/25 21:05 Temperature 97.8 F Pulse Rate 83 Respiratory Rate 18 Blood Pressure 122/68 122/68 122/68 Pulse Oximetry Oxygen Delivery Method 05/16/25 08:30 05/16/25 08:33 Temperature 97.7 F Pulse Rate 88 Respiratory Rate 14 Blood Pressure 115/63 115/63 Pulse Oximetry 99 Oxygen Delivery Method Room Air BMI result Body Mass Index 32.9 Labs 05/10/25 14:12 05/14/25 14:01 Labs: Laboratory Results - last 48 hr 05/15/25 05/16/25 07:29 07:36 POC Glucose 193 H 173 H Medications Medications Current Medications Acetaminophen (Acetaminophen 325 Mg Tablet) 650 mg PO Q6H PRN PRN Reason: Headache/Pain, Scale 1-10 Al Hydroxide/Mg Hydroxide (Magnesium Hydrox/Alum Hydrox 30 Ml Oral.Susp) 30 ml PO Q6H PRN PRN Reason: Heartburn/Nausea Last Admin: 05/11/25 19:19 Dose: 30 ml Alprazolam (Alprazolam 0.5 Mg Tablet) 1 mg PO QID PRN PRN Reason: Anxiety Last Admin: 05/16/25 12:52 Dose: 1 mg Bisacodyl (Bisacodyl 5 Mg Tablet.Dr) 10 mg PO BEDTIME COUNT [facility]CLUDES [facility] Last Admin: 05/15/25 21:01 Dose: 10 mg Brimonidine Tartrate (Brimonidine Tartrate 0.2% Oph 5 Ml Bottle) 1 drop EYE- RIGHT BID COUNT [facility]CLUDES [facility] Last Admin: 05/16/25 08:56 Dose: 1 drop Dicyclomine HCl (Dicyclomine Hcl 10 Mg Capsule) 10 mg PO QID COUNT [facility]CLUDES [facility] Last Admin: 05/16/25 15:27 Dose: 10 mg Famotidine (Famotidine 20 Mg Tablet) 40 mg PO BEDTIME COUNT [facility]CLUD[facility] Last Admin: 05/15/25 21:02 Dose: 40 mg Lamotrigine (Lamotrigine 25 Mg Tablet) 25 mg PO BEDTIME [facility] Last Admin: 05/15/25 21:13 Dose: 25 mg Latanoprost (Latanoprost 0.005 % Ophth [place] 2.5 Ml Drops) 1 drop EYE-BOTH BID COUNT [facility]CLUDES [facility] Last Admin: 05/16/25 08:36 Dose: 1 drop Magnesium Hydroxide (Milk Of Magnesia 30 Ml Oral.Susp) 30 ml PO DAILY PRN PRN Reason: Constipation Last Admin: 05/15/25 15:42 Dose: 30 ml Metformin HCl (Metformin Hcl 500 Mg Tablet) 500 mg PO BID COUNT [facility]CLUDES [facility] Last Admin: 05/16/25 08:33 Dose: 500 mg Misoprostol (Misoprostol 200 Mcg Tablet) 200 mcg PO BID COUNT [facility]CLUDES [facility] Last Admin: 05/16/25 08:31 Dose: 200 mcg Nicotine Polacrilex (Nicotine Polacrilex 2 Mg Gum) 2 mg BUCCAL Q2H PRN PRN Reason: Nicotine Cravings Omeprazole (Omeprazole 20 Mg Capsule.) 20 mg PO BID COUNT [facility]CLUDES [facility] Last Admin: 05/16/25 08:33 Dose: 20 mg Polyethylene Glycol (Polyethylene Glycol 3350 17 Gm Powd.Pack) 17 gm PO DAILY PRN PRN Reason: constipation Prazosin HCl (Prazosin Hcl 5 Mg Capsule) 5 mg PO BEDTIME COUNT [facility]CLUD[facility] Last Admin: 05/15/25 21:05 Dose: 5 mg Prazosin HCl (Prazosin Hcl 1 Mg Capsule) 1 mg PO BID@0900,1600 [facility]; Protocol Last Admin: 05/16/25 15:28 Dose: 1 mg Prazosin HCl (Prazosin Hcl 1 Mg Capsule) 2 mg PO BEDTIME COUNT [facility]CLUD[facility] Last Admin: 05/15/25 21:05 Dose: 2 mg Senna (Sennosides 8.6 Mg Tablet) 17.2 mg PO BEDTIME COUNT [facility]CLUDES [facility] Last Admin: 05/15/25 21:06 Dose: 17.2 mg Simethicone (Simethicone 80 Mg Tab.Chew) 160 mg PO QID COUNT [facility]CLUDES [facility] Last Admin: 05/16/25 15:25 Dose: 160 mg Timolol Maleate (Timolol Maleate 0.5 % Oph [place] 5 Ml Drbtl) 1 drop EYE-RIGHT BID COUNT [facility]CLUDES [facility] Last Admin: 05/16/25 09:20 Dose: 1 drop Venlafaxine HCl (Venlafaxine Hcl Er 150 Mg Cap.Er.24h) 150 mg PO DAILY COUNT [facility]CLUD[facility] Last Admin: 05/16/25 08:32 Dose: 150 mg Zolpidem Tartrate (Zolpidem Tartrate 5 Mg Tablet) 5 mg PO BEDTIME COUNT [facility]CLUD[facility] Last Admin: 05/15/25 21:06 Dose: 5 mg Zolpidem Tartrate (Zolpidem Tartrate 5 Mg Tablet) 5 mg PO BEDTIME PRN PRN Reason: Insomnia Allergies Allergies Allergy/AdvReac Type Severity Reaction Status Date / Time No Known Allergies (No Known Allergy Verified 05/10/25 14:27 Allergies*) Assessment & Plan Assessment & Plan (1) PTSD (post-traumatic stress disorder): Status: Acute Code(s): F43.10 - Post-traumatic stress disorder, unspecified (2) Bipolar disorder with depression: Status: Acute Code(s): F31.9 - Bipolar disorder, unspecified (3) QT prolongation: Status: Acute Code(s): R94.31 - Abnormal electrocardiogram [ECG] [EKG] Assessment and Plan: QT prolongation this elderly woman clearly related to a what appears to be Seroquel use. Patient on admission however seems to be on multiple medications that could be potentially prolonged QT interval. However Seroquel was withdrawn with normalization of QT interval. After reintroduction of Seroquel at a low- dose she again had QT prolongation. Discussed with the patient and says that she requires some medication for mood stabilization. Consider using medications that potentially do not cause significant QT prolongation. She understands the risk associated with QT prolongation did explain to her about risk of pro arrhythmias. She attest that she does not want to have significant risk associated with medications although she says she will need some medications do help with her mood swings and psychiatric health. Risks and benefits need to be balance. For now I would withdrawal Seroquel therapy. Replace her potassium and magnesium to potassium above 4 and magnesium above 2. With every medication introduction that can potentially length and QT interval please perform EKGs the following day. Titrate medications accordingly. Will sign of the case. Thank you for allowing me to partake in her care (4) Suicidal ideation: Status: Acute Code(s): R45.851 - Suicidal ideations Plan Ms. Mcintosh is a 69 yo F with h/o bipolar d/o, PTSD, delirium 2/2 UTI, Type II DM, HTN, GERD, fibromyalgia, celiac, pancreatitis, & ileus who was admitted to [facility] M3 due to AMS, hallucinations and SI. Pt was admitted w/ preliminary dx of delirium but there were no acute medical issues (UA neg for UTI) and collateral contact with pt's OP research scientist indicated that pt has had similar presentations when trips were planned to go to Plan: Admitted to for safety/stabilization Legal status- -3-----d-a-y- -z-[id number]-i-r-e-s- -W-e-d- -1-0-/-8- - - Retracted 3- day on 05/15, back on CV 05/12/25: Qtc 570 on 05/11/25 at 7pm. Educated patient on rationale for discontinuing Seroquel, in spite being on high dose for almost 20 years. Also educated that stimulant in itself will not prolong QTC, but with a prolonged QTC there is a higher chance of arrhythmia and therefore also rationale for holding stimulant medication. Patient did appear to show understanding. Would like primary team to liaise with community provider Dr. Meli Patel ref med regimen after the weekend. 05/13/2025: No changes. Maalox for nausea given prolonged QTC. Will repeat EKG Wednesday05/14/2025. Otherwise, regarding medication regimen would like primary team to liaise with community provider Dr. Meli Patel after the weekend 05/14/25: QTc has shortened- now at 464 msec (with Seroquel being held over the weekend). Will check Mg, Ca++, re-check lytes. Pt was hypokalemic on day of admission, which could have contributed to prolonged QTC, normalized on day after admission (hypokelamia may have been 2/2 poor po intake prior to admission). Case discussed with Meli Patel LIFE SCIENCES INSTRUCTOR today. Per my discussion w/ Ms. Patel and pt and since pt has been hypertensive (which could be c/w benzo w/d- will increase alprazolam back to 1 mg 4x/day prn. Will start Seroquel 50 mg qd at 12:30 pm and 100 mg at bedtime. Will re-check EKG tomorrow am. 05/15/25: Retracted 3-day. Seroquel was d/c'd due to recurrent QTc prolongation. Seen by cardology, appreciate recs (see above). Pt was agreeable w plan to start lamotrigine for tx of bipolar d/o. Reviewed med r/b/a, including risk of rare but potentially life threatening SJS. Advised pt to contact her psychiatrist before re-starting the med if she goes without it for >2 days and to titrate the dose as instructed. Pt expressed an understanding. Will also titrate prazosin to 7 mg at hs to target nightmares. Otherwise continue current plan 05/16/25: Pt is agreeable w/ plan to start Vraylar 1.5 mg, which fortunately carries a low risk of QTc prolongation. Will check EKG tomorrow. otherwise continue current tx plan. Pt declined ECT, which reportedly helped in the past but was a/w significant cognitive SE Patient educated on: medication risk/benefits Informed Consent: understands Reason for continued inpatient stay Substantial Risk for: med/psych decompensation Time Spent With Patient Time: Total time managing care of this patient today __30__ minutes.
[2025-05-16 20:00] VITALS: RESP 16
--- NOTE | 2025-05-17 | ECG_ITS ---
Test Reason : qtc check Blood Pressure : */* mmHG Vent. Rate : 84 BPM Atrial Rate : 84 BPM P-R Int : 188 ms QRS Dur : 76 ms QT Int : 308 ms P-R-T Axes : 44 95 106 degrees QTcB Int : 363 ms Normal sinus rhythm Rightward axis Nonspecific T wave abnormality Abnormal ECG When compared with ECG of 15-May-2025 08:55, Nonspecific T wave abnormality, worse in Lateral leads QT has shortened Referred By: Ellen Dubon Electronically Signed By: VALERIE ROSS MD
[2025-05-17 07:00] VITALS: BMI 22.8
[2025-05-17 07:05] VITALS: BP 106/52; PULSE 92; RESP 12; TEMP 36.3; O2SAT 97
[2025-05-17 07:59] LABS: Glucose, Whole Blood 230 mg/dL (60-115)
[2025-05-17 08:13] LABS: Creatinine Clr Calc Pharmacy 79.5; Estimated Glomerular Filt Rate > 60
[2025-05-17 11:15] VITALS: BP 106/52
[2025-05-17] MEDS: Brimonidine Tartrate 0.2% Oph 5 ML BOTTLE 1 DROP EYE-RIGHT ×2 (11:18→20:56)
[2025-05-17] MEDS: Venlafaxine HCl ER 150 MG CAP.ER.24H PO (11:22)
[2025-05-17] MEDS: Latanoprost 0.005 % Ophth Sol 2.5 ML DROPS 1 DROP EYE-BOTH ×2 (11:41→21:21)
[2025-05-17] MEDS: timoloL maleate 0.5 % Oph Sol 5 ML DRBTL 1 DROP EYE-RIGHT ×2 (12:15→20:40)
--- NOTE | 2025-05-17 15:58 | P.PNPSI_ITS ---
Subjective Subjective Date of Service: 05/17/25 Reason For Visit: Decomp, ST and AH Subjective Notes: Conditional Voluntary Interim History: chart reviewed, case discussed with tx team Pt reports feeling a little better today. Denies SI Sleep was off-and-on, no worse w/ the first dose of Vraylar Denies med SE QTc after 1.5 mg Vraylar was 363 ms this am Mental Status Exam Mental Status Exam Narrative: Appearance:lying in bed, casual, good eye contact Attitude: Cooperative Speech: Fluent and wnl in regard to volume, tone, prosody Motor activity: Calm and without any tics, tremors or dyskinesias. Mood: as noted above Affect: appropriate, reactive, brightens up appropriately Thought process: goal directed and without evidence of formal thought disorder Thought content: as noted above. denies SI Perception: endorses chronic AH. does not appear to respond to internal stimuli Alert/oriented in all spheres Cognition grossly intact Insight: intact Judgment: intact Diagnostics Vital Signs (24Hr): Vital Signs - 24 hr 05/16/25 20:00 05/17/25 07:05 05/17/25 11:15 Temperature 97.4 F Pulse Rate 92 Respiratory Rate 16 12 Blood Pressure 106/52 L 106/52 L Pulse Oximetry 97 Oxygen Delivery Method Room Air BMI result Body Mass Index 22.8 Labs 05/10/25 14:12 05/17/25 07:39 Labs: Laboratory Results - last 48 hr 05/16/25 05/17/25 05/17/25 07:36 07:39 07:51 Creatinine 0.68 Estim Creat Clear Calc 79.5 Estimated GFR > 60 POC Glucose 173 H 230 H Medications Medications Current Medications Acetaminophen (Acetaminophen 325 Mg Tablet) 650 mg PO Q6H PRN PRN Reason: Headache/Pain, Scale 1-10 Al Hydroxide/Mg Hydroxide (Magnesium Hydrox/Alum Hydrox 30 Ml Oral.Susp) 30 ml PO Q6H PRN PRN Reason: Heartburn/Nausea Last Admin: 05/11/25 19:19 Dose: 30 ml Alprazolam (Alprazolam 0.5 Mg Tablet) 1 mg PO QID PRN PRN Reason: Anxiety Last Admin: 05/16/25 20:53 Dose: 1 mg Bisacodyl (Bisacodyl 5 Mg Tablet.Dr) 10 mg PO BEDTIME [facility] Last Admin: 05/16/25 20:44 Dose: 10 mg Brimonidine Tartrate (Brimonidine Tartrate 0.2% Oph 5 Ml Bottle) 1 drop EYE- RIGHT BID [facility] Last Admin: 05/17/25 11:18 Dose: 1 drop Cariprazine (Cariprazine Hcl 3 Mg Capsule) 3 mg PO BEDTIME [facility] Dicyclomine HCl (Dicyclomine Hcl 10 Mg Capsule) 10 mg PO QID [facility] Last Admin: 05/17/25 14:57 Dose: Not Given Famotidine (Famotidine 20 Mg Tablet) 40 mg PO BEDTIME [facility] Last Admin: 05/16/25 20:44 Dose: 40 mg Lamotrigine (Lamotrigine 25 Mg Tablet) 25 mg PO BEDTIME [facility] Last Admin: 05/16/25 20:43 Dose: 25 mg Latanoprost (Latanoprost 0.005 % Ophth [place] 2.5 Ml Drops) 1 drop EYE-BOTH BID [facility] Last Admin: 05/17/25 11:41 Dose: 1 drop Magnesium Hydroxide (Milk Of Magnesia 30 Ml Oral.Susp) 30 ml PO DAILY PRN PRN Reason: Constipation Last Admin: 05/15/25 15:42 Dose: 30 ml Metformin HCl (Metformin Hcl 500 Mg Tablet) 500 mg PO BID [facility] Last Admin: 05/17/25 11:15 Dose: 500 mg Misoprostol (Misoprostol 200 Mcg Tablet) 200 mcg PO BID [facility] Last Admin: 05/17/25 11:15 Dose: 200 mcg Nicotine Polacrilex (Nicotine Polacrilex 2 Mg Gum) 2 mg BUCCAL Q2H PRN PRN Reason: Nicotine Cravings Omeprazole (Omeprazole 20 Mg Capsule.Dr) 20 mg PO BID [facility] Last Admin: 05/17/25 11:15 Dose: 20 mg Polyethylene Glycol (Polyethylene Glycol 3350 17 Gm Powd.Pack) 17 gm PO DAILY PRN PRN Reason: constipation Prazosin HCl (Prazosin Hcl 5 Mg Capsule) 5 mg PO BEDTIME [facility] Last Admin: 05/16/25 20:43 Dose: 5 mg Prazosin HCl (Prazosin Hcl 1 Mg Capsule) 1 mg PO BID@0900,1600 [facility]; Protocol Last Admin: 05/17/25 11:15 Dose: 1 mg Prazosin HCl (Prazosin Hcl 1 Mg Capsule) 2 mg PO BEDTIME [facility] Last Admin: 05/16/25 20:43 Dose: 2 mg Senna (Sennosides 8.6 Mg Tablet) 17.2 mg PO BEDTIME [facility] Last Admin: 05/16/25 20:44 Dose: 17.2 mg Simethicone (Simethicone 80 Mg Tab.Chew) 160 mg PO QID [facility] Last Admin: 05/17/25 14:57 Dose: Not Given Timolol Maleate (Timolol Maleate 0.5 % Oph [place] 5 Ml Drbtl) 1 drop EYE-RIGHT BID [facility] Last Admin: 05/17/25 12:15 Dose: 1 drop Venlafaxine HCl (Venlafaxine Hcl Er 150 Mg Cap.Er.24h) 150 mg PO DAILY [facility] Last Admin: 05/17/25 11:22 Dose: 150 mg Zolpidem Tartrate (Zolpidem Tartrate 5 Mg Tablet) 5 mg PO BEDTIME [facility] Last Admin: 05/16/25 20:44 Dose: 5 mg Zolpidem Tartrate (Zolpidem Tartrate 5 Mg Tablet) 5 mg PO BEDTIME PRN PRN Reason: Insomnia Allergies Allergies Allergy/AdvReac Type Severity Reaction Status Date / Time No Known Allergies (No Known Allergy Verified 05/10/25 14:27 Allergies*) Assessment & Plan Assessment & Plan (1) PTSD (post-traumatic stress disorder): Status: Acute Code(s): F43.10 - Post-traumatic stress disorder, unspecified (2) Bipolar disorder with depression: Status: Acute Code(s): F31.9 - Bipolar disorder, unspecified (3) QT prolongation: Status: Acute Code(s): R94.31 - Abnormal electrocardiogram [ECG] [EKG] Assessment and Plan: QT prolongation this elderly woman clearly related to a what appears to be Seroquel use. Patient on admission however seems to be on multiple medications that could be potentially prolonged QT interval. However Seroquel was withdrawn with normalization of QT interval. After reintroduction of Seroquel at a low- dose she again had QT prolongation. Discussed with the patient and says that she requires some medication for mood stabilization. Consider using medications that potentially do not cause significant QT prolongation. She understands the risk associated with QT prolongation did explain to her about risk of pro arrhythmias. She attest that she does not want to have significant risk associated with medications although she says she will need some medications do help with her mood swings and psychiatric health. Risks and benefits need to be balance. For now I would withdrawal Seroquel therapy. Replace her potassium and magnesium to potassium above 4 and magnesium above 2. With every medication introduction that can potentially length and QT interval please perform EKGs the following day. Titrate medications accordingly. Will sign of the case. Thank you for allowing me to partake in her care (4) Suicidal ideation: Status: Acute Code(s): R45.851 - Suicidal ideations Plan Ms. Mcintosh is a 69 yo F with h/o bipolar d/o, PTSD, delirium 2/2 UTI, Type II DM, HTN, GERD, fibromyalgia, celiac, pancreatitis, & ileus who was admitted to [facility] M3 due to AMS, hallucinations and SI. Pt was admitted w/ preliminary dx of delirium but there were no acute medical issues (UA neg for UTI) and collateral contact with pt's OP clipper counters indicated that pt has had similar presentations when trips were planned to go to Plan: Admitted to for safety/stabilization Legal status- -3-----d-a-y- -k-m-z-i-r-e-s- -W-e-d- -1-0-/-8- - - Retracted 3- day on 05/15, back on CV 05/12/25: Qtc 570 on 05/11/25 at 7pm. Educated patient on rationale for discontinuing Seroquel, in spite being on high dose for almost 20 years. Also educated that stimulant in itself will not prolong QTC, but with a prolonged QTC there is a higher chance of arrhythmia and therefore also rationale for holding stimulant medication. Patient did appear to show understanding. Would like primary team to liaise with community provider Dr. Meli Patel ref med regimen after the weekend. 05/13/2025: No changes. Maalox for nausea given prolonged QTC. Will repeat EKG Wednesday05/14/2025. Otherwise, regarding medication regimen would like primary team to liaise with community provider Dr. Meli Patel after the weekend 05/14/25: QTc has shortened- now at 464 msec (with Seroquel being held over the weekend). Will check Mg, Ca++, re-check lytes. Pt was hypokalemic on day of admission, which could have contributed to prolonged QTC, normalized on day after admission (hypokelamia may have been 2/2 poor po intake prior to admission). Case discussed with Meli Patel MINING AND QUARRYING MACHINERY REPAIRER today. Per my discussion w/ MsShantal Patel and pt and since pt has been hypertensive (which could be c/w benzo w/d- will increase alprazolam back to 1 mg 4x/day prn. Will start Seroquel 50 mg qd at 12:30 pm and 100 mg at bedtime. Will re-check EKG tomorrow am. 05/15/25: Retracted 3-day. Seroquel was d/c'd due to recurrent QTc prolongation. Seen by cardology, appreciate recs (see above). Pt was agreeable w plan to start lamotrigine for tx of bipolar d/o. Reviewed med r/b/a, including risk of rare but potentially life threatening SJS. Advised pt to contact her psychiatrist before re-starting the med if she goes without it for >2 days and to titrate the dose as instructed. Pt expressed an understanding. Will also titrate prazosin to 7 mg at hs to target nightmares. Otherwise continue current plan 05/16/25: Pt is agreeable w/ plan to start Vraylar 1.5 mg, which fortunately carries a low risk of QTc prolongation. Will check EKG tomorrow. otherwise continue current tx plan. Pt declined ECT, which reportedly helped in the past but was a/w significant cognitive SE : Mood has improved somewhat today. Tolerated Vraylar 1.5 mg well, QTc wnl (363 ms). Pt agrees w/ plan to titrate Vraylar to 3 mg starting tonight for mod stabilization/perceptual disturbances. otherwise continue current plan Patient educated on: medication risk/benefits Informed Consent: understands Reason for continued inpatient stay Substantial Risk for: med/psych decompensation Time Spent With Patient Time: Total time managing care of this patient today ___25_ minutes.
[2025-05-17 17:47] VITALS: BP 108/59
[2025-05-17 20:00] VITALS: BP 118/60; PULSE 91; RESP 16; TEMP 36.2; O2SAT 100
[2025-05-17 20:43] VITALS: BP 118/60
[2025-05-17 20:45] VITALS: BP 118/60
[2025-05-18 07:31] VITALS: BP 115/65; PULSE 80; RESP 20; TEMP 36.1; O2SAT 99
[2025-05-18 07:49] LABS: Glucose, Whole Blood 196 mg/dL (60-115)
[2025-05-18] MEDS: Venlafaxine HCl ER 150 MG CAP.ER.24H PO (08:05)
[2025-05-18] MEDS: Brimonidine Tartrate 0.2% Oph 5 ML BOTTLE 1 DROP EYE-RIGHT ×2 (08:07→22:05)
[2025-05-18] MEDS: Latanoprost 0.005 % Ophth Sol 2.5 ML DROPS 1 DROP EYE-BOTH ×2 (08:41→22:05)
[2025-05-18] MEDS: timoloL maleate 0.5 % Oph Sol 5 ML DRBTL 1 DROP EYE-RIGHT ×2 (09:08→22:05)
--- NOTE | 2025-05-18 13:08 | HO.PSYCHPN ---
Subjective Subjective Date of Service: 05/18/25 Reason For Visit: Decomp, ST and AH Interim History: Laying in bed. Patient reports feeling tired d/t not sleeping well last night; per nursing, slept 7 hours. She reports feeling anxious and depressed; encouraged to attend groups and not stay in bed. denies SI/HI/VH/AH. Continue tx plan. Medication Compliance: Yes Side effects from medications: No Attending Groups: No Mental Status Exam Mental Status Exam Patient Appearance: Appropriate Patient Orientation: Person, Place, Time and Situation Level of Consciousness: Awake and Alert Patient Behavior: Cooperative Mood Description: Depressed and Anxious Affect Description: Depressed Ability to Follow Directions: Good Speech Pattern: Clear Memory Description: Intact Hallucinations: None Delusions: Not Present Thought Process: Intact Thought Content: positive for Intact Diagnostics Vital Signs (24Hr): Vital Signs - 24 hr 05/17/25 17:47 05/17/25 20:00 05/17/25 20:43 Temperature 97.2 F Pulse Rate 91 Respiratory Rate 16 Blood Pressure 108/59 L 118/60 118/60 Pulse Oximetry 100 Oxygen Delivery Method Room Air 05/17/25 20:45 05/18/25 07:31 Temperature 97.0 F Pulse Rate 80 Respiratory Rate 20 Blood Pressure 118/60 115/65 Pulse Oximetry 99 Oxygen Delivery Method Room Air BMI result Body Mass Index 22.8 Labs 05/10/25 14:12 05/17/25 07:39 Labs: Laboratory Results - last 48 hr 05/17/25 05/17/25 05/18/25 07:39 07:51 07:36 Creatinine 0.68 Estim Creat Clear Calc 79.5 Estimated GFR > 60 POC Glucose 230 H 196 H Medications Medications Current Medications Acetaminophen (Acetaminophen 325 Mg Tablet) 650 mg PO Q6H PRN PRN Reason: Headache/Pain, Scale 1-10 Al Hydroxide/Mg Hydroxide (Magnesium Hydrox/Alum Hydrox 30 Ml Oral.Susp) 30 ml PO Q6H PRN PRN Reason: Heartburn/Nausea Last Admin: 05/11/25 19:19 Dose: 30 ml Alprazolam (Alprazolam 0.5 Mg Tablet) 1 mg PO QID PRN PRN Reason: Anxiety Last Admin: 05/18/25 08:05 Dose: 1 mg Bisacodyl (Bisacodyl 5 Mg Tablet.Dr) 10 mg PO BEDTIME ARETHA Last Admin: 05/17/25 20:45 Dose: 10 mg Brimonidine Tartrate (Brimonidine Tartrate 0.2% Oph 5 Ml Bottle) 1 drop EYE-RIGHT BID [facility] Last Admin: 05/18/25 08:07 Dose: 1 drop Cariprazine (Cariprazine Hcl 3 Mg Capsule) 3 mg PO BEDTIME [facility] Last Admin: 05/17/25 20:46 Dose: 3 mg Dicyclomine HCl (Dicyclomine Hcl 10 Mg Capsule) 10 mg PO QID [facility] Last Admin: 05/18/25 12:38 Dose: 10 mg Famotidine (Famotidine 20 Mg Tablet) 40 mg PO BEDTIME [facility] Last Admin: 05/17/25 20:42 Dose: 40 mg Lamotrigine (Lamotrigine 25 Mg Tablet) 25 mg PO BEDTIME [facility] Last Admin: 05/17/25 20:47 Dose: 25 mg Latanoprost (Latanoprost 0.005 % Ophth [place] 2.5 Ml Drops) 1 drop EYE-BOTH BID [facility] Last Admin: 05/18/25 08:41 Dose: 1 drop Magnesium Hydroxide (Milk Of Magnesia 30 Ml Oral.Susp) 30 ml PO DAILY PRN PRN Reason: Constipation Last Admin: 05/15/25 15:42 Dose: 30 ml Metformin HCl (Metformin Hcl 500 Mg Tablet) 500 mg PO BID [facility] Last Admin: 05/18/25 08:05 Dose: 500 mg Misoprostol (Misoprostol 200 Mcg Tablet) 200 mcg PO BID [facility] Last Admin: 05/18/25 08:04 Dose: 200 mcg Nicotine Polacrilex (Nicotine Polacrilex 2 Mg Gum) 2 mg BUCCAL Q2H PRN PRN Reason: Nicotine Cravings Omeprazole (Omeprazole 20 Mg Capsule.Dr) 20 mg PO BID [facility] Last Admin: 05/18/25 08:05 Dose: 20 mg Polyethylene Glycol (Polyethylene Glycol 3350 17 Gm Powd.Pack) 17 gm PO DAILY PRN PRN Reason: constipation Prazosin HCl (Prazosin Hcl 5 Mg Capsule) 5 mg PO BEDTIME [facility] Last Admin: 05/17/25 20:43 Dose: 5 mg Prazosin HCl (Prazosin Hcl 1 Mg Capsule) 1 mg PO BID@0900,1600 [facility]; Protocol Last Admin: 05/18/25 08:04 Dose: 1 mg Prazosin HCl (Prazosin Hcl 1 Mg Capsule) 2 mg PO BEDTIME [facility] Last Admin: 05/17/25 20:45 Dose: 2 mg Senna (Sennosides 8.6 Mg Tablet) 17.2 mg PO BEDTIME [facility] Last Admin: 05/17/25 20:48 Dose: 17.2 mg Simethicone (Simethicone 80 Mg Tab.Chew) 160 mg PO QID [facility] Last Admin: 05/18/25 12:37 Dose: 160 mg Timolol Maleate (Timolol Maleate 0.5 % Oph [place] 5 Ml Drbtl) 1 drop EYE-RIGHT BID [facility] Last Admin: 05/18/25 09:08 Dose: 1 drop Venlafaxine HCl (Venlafaxine Hcl Er 150 Mg Cap.Er.24h) 150 mg PO DAILY [facility] Last Admin: 05/18/25 08:05 Dose: 150 mg Zolpidem Tartrate (Zolpidem Tartrate 5 Mg Tablet) 5 mg PO BEDTIME [facility] Last Admin: 05/17/25 20:42 Dose: 5 mg Zolpidem Tartrate (Zolpidem Tartrate 5 Mg Tablet) 5 mg PO BEDTIME PRN PRN Reason: Insomnia Allergies Allergies Allergy/AdvReac Type Severity Reaction Status Date / Time No Known Allergies (No Known Allergy Verified 05/10/25 14:27 Allergies*) Assessment & Plan Assessment & Plan (1) PTSD (post-traumatic stress disorder): Status: Acute Code(s): F43.10 - Post-traumatic stress disorder, unspecified (2) Bipolar disorder with depression: Status: Acute Code(s): F31.9 - Bipolar disorder, unspecified (3) QT prolongation: Status: Acute Code(s): R94.31 - Abnormal electrocardiogram [ECG] [EKG] Assessment and Plan: QT prolongation this elderly woman clearly related to a what appears to be Seroquel use. Patient on admission however seems to be on multiple medications that could be potentially prolonged QT interval. However Seroquel was withdrawn with normalization of QT interval. After reintroduction of Seroquel at a low-dose she again had QT prolongation. Discussed with the patient and says that she requires some medication for mood stabilization. Consider using medications that potentially do not cause significant QT prolongation. She understands the risk associated with QT prolongation did explain to her about risk of pro arrhythmias. She attest that she does not want to have significant risk associated with medications although she says she will need some medications do help with her mood swings and psychiatric health. Risks and benefits need to be balance. For now I would withdrawal Seroquel therapy. Replace her potassium and magnesium to potassium above 4 and magnesium above 2. With every medication introduction that can potentially length and QT interval please perform EKGs the following day. Titrate medications accordingly. Will sign of the case. Thank you for allowing me to partake in her care (4) Suicidal ideation: Status: Acute Code(s): R45.851 - Suicidal ideations Plan Ms. Mcintosh is a 69 yo F with h/o bipolar d/o, PTSD, delirium 2/2 UTI, Type II DM, HTN, GERD, fibromyalgia, celiac, pancreatitis, & ileus who was admitted to [facility] due to AMS, hallucinations and SI. Pt was admitted w/ preliminary dx of delirium but there were no acute medical issues (UA neg for UTI) and collateral contact with pt's OP configuration management advisor indicated that pt has had similar presentations when trips were planned to go to Plan: Admitted to for safety/stabilization Legal status- <del>3-day</del> <del>expires</del> <del>Wed</del> <del>05/16</del> Retracted 3-day on 05/15, back on CV 05/12/25: Qtc 570 on 05/11/25 at 7pm. Educated patient on rationale for discontinuing Seroquel, in spite being on high dose for almost 20 years. Also educated that stimulant in itself will not prolong QTC, but with a prolonged QTC there is a higher chance of arrhythmia and therefore also rationale for holding stimulant medication. Patient did appear to show understanding. Would like primary team to liaise with community provider Dr. Meli Patel ref med regimen after the weekend. 05/13/2025: No changes. Maalox for nausea given prolonged QTC. Will repeat EKG Wednesday05/14/2025. Otherwise, regarding medication regimen would like primary team to liaise with community provider Dr. Meli Patel after the weekend 05/14/25: QTc has shortened- now at 464 msec (with Seroquel being held over the weekend). Will check Mg, Ca++, re-check lytes. Pt was hypokalemic on day of admission, which could have contributed to prolonged QTC, normalized on day after admission (hypokelamia may have been 2/2 poor po intake prior to admission). Case discussed with Meli Patel FOLDER MACHINE today. Per my discussion w/ MsShantal Patel and pt and since pt has been hypertensive (which could be c/w benzo w/d- will increase alprazolam back to 1 mg 4x/day prn. Will start Seroquel 50 mg qd at 12:30 pm and 100 mg at bedtime. Will re-check EKG tomorrow am. 05/15/25: Retracted 3-day. Seroquel was d/c'd due to recurrent QTc prolongation. Seen by cardology, appreciate recs (see above). Pt was agreeable w plan to start lamotrigine for tx of bipolar d/o. Reviewed med r/b/a, including risk of rare but potentially life threatening SJS. Advised pt to contact her psychiatrist before re-starting the med if she goes without it for >2 days and to titrate the dose as instructed. Pt expressed an understanding. Will also titrate prazosin to 7 mg at hs to target nightmares. Otherwise continue current plan 05/16/25: Pt is agreeable w/ plan to start Vraylar 1.5 mg, which fortunately carries a low risk of QTc prolongation. Will check EKG tomorrow. otherwise continue current tx plan. Pt declined ECT, which reportedly helped in the past but was a/w significant cognitive SE : Mood has improved somewhat today. Tolerated Vraylar 1.5 mg well, QTc wnl (363 ms). Pt agrees w/ plan to titrate Vraylar to 3 mg starting tonight for mod stabilization/perceptual disturbances. otherwise continue current plan 05/18: continue tx plan. Patient educated on: diagnosis, medication risk/benefits and therapeutic strategies Reason for continued inpatient stay Substantial Risk for: med/psych decompensation Time Spent With Patient Time: Total time managing care of this patient today _15___ minutes.
[2025-05-18 15:36] VITALS: BP 110/59; PULSE 86; TEMP 36.7; O2SAT 98
[2025-05-18] MEDS: Milk of Magnesia 30 ML ORAL.SUSP PO (18:27)
[2025-05-18 21:05] VITALS: BP 124/68; PULSE 89; RESP 18; TEMP 36.7; O2SAT 97
[2025-05-19 08:00] VITALS: BP 102/57; PULSE 96; RESP 14; TEMP 36.6; O2SAT 98
[2025-05-19 08:04] LABS: Glucose, Whole Blood 178 mg/dL (60-115)
[2025-05-19] MEDS: Latanoprost 0.005 % Ophth Sol 2.5 ML DROPS 1 DROP EYE-BOTH ×2 (08:36→22:03)
[2025-05-19 08:39] VITALS: BP 102/57
[2025-05-19] MEDS: Venlafaxine HCl ER 150 MG CAP.ER.24H PO (08:41)
[2025-05-19] MEDS: timoloL maleate 0.5 % Oph Sol 5 ML DRBTL 1 DROP EYE-RIGHT ×2 (09:03→22:02)
[2025-05-19] MEDS: Brimonidine Tartrate 0.2% Oph 5 ML BOTTLE 1 DROP EYE-RIGHT ×2 (09:14→22:03)
--- NOTE | 2025-05-19 10:12 | P.PNPSI_ITS ---
Subjective Subjective Date of Service: 05/19/25 Reason For Visit: Decomp, ST and AH Subjective Notes: Conditional Voluntary Interim History: Patient was seen and discussed in rounds today. Records and plans were reviewed. She states that she has been having trouble sleeping and is not sure whether it has been since she started Vraylar. She states that at home she takes hydroxyzine 100 mg at night. I will start her with 50 mg p.r.n.. She continues to be doing a little better but continues to be guarded. Eating adequately. Isolative for the most part. No behavioral issues. No other changes were made today Review of Systems Review of Systems Yes all other systems are reviewed and are negative Mental Status Exam Mental Status Exam Patient Appearance: Appropriate Patient Orientation: Person, Place, Time and Situation Level of Consciousness: Awake and Alert Patient Behavior: Cooperative Mood Description: Depressed and Anxious Affect Description: Depressed Ability to Follow Directions: Good Speech Pattern: Clear Memory Description: Intact Hallucinations: None Delusions: Not Present Thought Process: Intact Thought Content: positive for Intact Diagnostics Vital Signs (24Hr): Vital Signs - 24 hr 05/18/25 15:36 05/18/25 21:05 05/19/25 08:39 Temperature 98.0 F 98.1 F Pulse Rate 86 89 Respiratory Rate 18 Blood Pressure 110/59 L 124/68 102/57 L Pulse Oximetry 98 97 Oxygen Delivery Method Room Air Room Air BMI result Body Mass Index 22.8 Labs 05/10/25 14:12 05/17/25 07:39 Labs: Laboratory Results - last 48 hr 05/18/25 05/19/25 07:36 07:52 POC Glucose 196 H 178 H Medications Medications Current Medications Acetaminophen (Acetaminophen 325 Mg Tablet) 650 mg PO Q6H PRN PRN Reason: Headache/Pain, Scale 1-10 Al Hydroxide/Mg Hydroxide (Magnesium Hydrox/Alum Hydrox 30 Ml Oral.Susp) 30 ml PO Q6H PRN PRN Reason: Heartburn/Nausea Last Admin: 05/11/25 19:19 Dose: 30 ml Alprazolam (Alprazolam 0.5 Mg Tablet) 1 mg PO QID PRN PRN Reason: Anxiety Last Admin: 05/18/25 22:10 Dose: 1 mg Bisacodyl (Bisacodyl 5 Mg Tablet.Dr) 10 mg PO BEDTIME [facility] Last Admin: 05/18/25 22:00 Dose: 10 mg Brimonidine Tartrate (Brimonidine Tartrate 0.2% Oph 5 Ml Bottle) 1 drop EYE- RIGHT BID [facility] Last Admin: 05/19/25 09:14 Dose: 1 drop Cariprazine (Cariprazine Hcl 3 Mg Capsule) 3 mg PO BEDTIME [facility] Last Admin: 05/18/25 22:00 Dose: 3 mg Dicyclomine HCl (Dicyclomine Hcl 10 Mg Capsule) 10 mg PO QID [facility] Last Admin: 05/19/25 08:38 Dose: 10 mg Famotidine (Famotidine 20 Mg Tablet) 40 mg PO BEDTIME [facility] Last Admin: 05/18/25 22:01 Dose: 40 mg Lamotrigine (Lamotrigine 25 Mg Tablet) 25 mg PO BEDTIME [facility] Last Admin: 05/18/25 22:01 Dose: 25 mg Latanoprost (Latanoprost 0.005 % Ophth [place] 2.5 Ml Drops) 1 drop EYE-BOTH BID [facility] Last Admin: 05/19/25 08:36 Dose: 1 drop Magnesium Hydroxide (Milk Of Magnesia 30 Ml Oral.Susp) 30 ml PO DAILY PRN PRN Reason: Constipation Last Admin: 05/18/25 18:27 Dose: 30 ml Metformin HCl (Metformin Hcl 500 Mg Tablet) 500 mg PO BID [facility] Last Admin: 05/19/25 08:40 Dose: 500 mg Misoprostol (Misoprostol 200 Mcg Tablet) 200 mcg PO BID [facility] Last Admin: 05/19/25 08:37 Dose: 200 mcg Nicotine Polacrilex (Nicotine Polacrilex 2 Mg Gum) 2 mg BUCCAL Q2H PRN PRN Reason: Nicotine Cravings Omeprazole (Omeprazole 20 Mg Capsule.Dr) 20 mg PO BID [facility] Last Admin: 05/19/25 08:41 Dose: 20 mg Polyethylene Glycol (Polyethylene Glycol 3350 17 Gm Powd.Pack) 17 gm PO DAILY PRN PRN Reason: constipation Prazosin HCl (Prazosin Hcl 5 Mg Capsule) 5 mg PO BEDTIME [facility] Last Admin: 05/18/25 22:00 Dose: 5 mg Prazosin HCl (Prazosin Hcl 1 Mg Capsule) 1 mg PO BID@0900,1600 [facility]; Protocol Last Admin: 05/19/25 08:39 Dose: 1 mg Prazosin HCl (Prazosin Hcl 1 Mg Capsule) 2 mg PO BEDTIME [facility] Last Admin: 05/18/25 22:00 Dose: 2 mg Senna (Sennosides 8.6 Mg Tablet) 17.2 mg PO BEDTIME [facility] Last Admin: 05/18/25 22:00 Dose: 17.2 mg Simethicone (Simethicone 80 Mg Tab.Chew) 160 mg PO QID [facility] Last Admin: 05/19/25 08:38 Dose: 160 mg Timolol Maleate (Timolol Maleate 0.5 % Oph [place] 5 Ml Drbtl) 1 drop EYE-RIGHT BID [facility] Last Admin: 05/19/25 09:03 Dose: 1 drop Venlafaxine HCl (Venlafaxine Hcl Er 150 Mg Cap.Er.24h) 150 mg PO DAILY [facility] Last Admin: 05/19/25 08:41 Dose: 150 mg Zolpidem Tartrate (Zolpidem Tartrate 5 Mg Tablet) 5 mg PO BEDTIME [facility] Last Admin: 05/18/25 22:01 Dose: 5 mg Zolpidem Tartrate (Zolpidem Tartrate 5 Mg Tablet) 5 mg PO BEDTIME PRN PRN Reason: Insomnia Last Admin: 05/18/25 22:10 Dose: 5 mg Allergies Allergies Allergy/AdvReac Type Severity Reaction Status Date / Time No Known Allergies (No Known Allergy Verified 05/10/25 14:27 Allergies*) Assessment & Plan Assessment & Plan (1) PTSD (post-traumatic stress disorder): Status: Acute Code(s): F43.10 - Post-traumatic stress disorder, unspecified (2) Bipolar disorder with depression: Status: Acute Code(s): F31.9 - Bipolar disorder, unspecified (3) QT prolongation: Status: Acute Code(s): R94.31 - Abnormal electrocardiogram [ECG] [EKG] Assessment and Plan: QT prolongation this elderly woman clearly related to a what appears to be Seroquel use. Patient on admission however seems to be on multiple medications that could be potentially prolonged QT interval. However Seroquel was withdrawn with normalization of QT interval. After reintroduction of Seroquel at a low- dose she again had QT prolongation. Discussed with the patient and says that she requires some medication for mood stabilization. Consider using medications that potentially do not cause significant QT prolongation. She understands the risk associated with QT prolongation did explain to her about risk of pro arrhythmias. She attest that she does not want to have significant risk associated with medications although she says she will need some medications do help with her mood swings and psychiatric health. Risks and benefits need to be balance. For now I would withdrawal Seroquel therapy. Replace her potassium and magnesium to potassium above 4 and magnesium above 2. With every medication introduction that can potentially length and QT interval please perform EKGs the following day. Titrate medications accordingly. Will sign of the case. Thank you for allowing me to partake in her care (4) Suicidal ideation: Status: Acute Code(s): R45.851 - Suicidal ideations Plan Ms. Mcintosh is a 69 yo F with h/o bipolar d/o, PTSD, delirium 2/2 UTI, Type II DM, HTN, GERD, fibromyalgia, celiac, pancreatitis, & ileus who was admitted to [facility] due to AMS, hallucinations and SI. Pt was admitted w/ preliminary dx of delirium but there were no acute medical issues (UA neg for UTI) and collateral contact with pt's OP relocation manager indicated that pt has had similar presentations when trips were planned to go to Plan: Admitted to for safety/stabilization Legal status- -3-----d-a-y- -b-[id number]- -W-e-d- -1-0-/-8- - - Retracted 3- day on 05/15, back on CV 05/12/25: Qtc 570 on 05/11/25 at 7pm. Educated patient on rationale for discontinuing Seroquel, in spite being on high dose for almost 20 years. Also educated that stimulant in itself will not prolong QTC, but with a prolonged QTC there is a higher chance of arrhythmia and therefore also rationale for holding stimulant medication. Patient did appear to show understanding. Would like primary team to liaise with community provider Dr. Meli Patel ref med regimen after the weekend. 05/13/2025: No changes. Maalox for nausea given prolonged QTC. Will repeat EKG Wednesday05/14/2025. Otherwise, regarding medication regimen would like primary team to liaise with community provider Dr. Meli Patel after the weekend 05/14/25: QTc has shortened- now at 464 msec (with Seroquel being held over the weekend). Will check Mg, Ca++, re-check lytes. Pt was hypokalemic on day of admission, which could have contributed to prolonged QTC, normalized on day after admission (hypokelamia may have been 2/2 poor po intake prior to admission). Case discussed with Meli Patel SALES PERFORMANCE MANAGER today. Per my discussion w/ MsShantal Patel and pt and since pt has been hypertensive (which could be c/w benzo w/d- will increase alprazolam back to 1 mg 4x/day prn. Will start Seroquel 50 mg qd at 12:30 pm and 100 mg at bedtime. Will re-check EKG tomorrow am. 05/15/25: Retracted 3-day. Seroquel was d/c'd due to recurrent QTc prolongation. Seen by cardology, appreciate recs (see above). Pt was agreeable w plan to start lamotrigine for tx of bipolar d/o. Reviewed med r/b/a, including risk of rare but potentially life threatening SJS. Advised pt to contact her psychiatrist before re-starting the med if she goes without it for >2 days and to titrate the dose as instructed. Pt expressed an understanding. Will also titrate prazosin to 7 mg at hs to target nightmares. Otherwise continue current plan 05/16/25: Pt is agreeable w/ plan to start Vraylar 1.5 mg, which fortunately carries a low risk of QTc prolongation. Will check EKG tomorrow. otherwise continue current tx plan. Pt declined ECT, which reportedly helped in the past but was a/w significant cognitive SE : Mood has improved somewhat today. Tolerated Vraylar 1.5 mg well, QTc wnl (363 ms). Pt agrees w/ plan to titrate Vraylar to 3 mg starting tonight for mod stabilization/perceptual disturbances. otherwise continue current plan 05/18: continue tx plan. 05/19: Continue current regimen and plans. No new EKG to review since 05/17 with improved QTc Patient educated on: medication risk/benefits Reason for continued inpatient stay Substantial Risk for: med/psych decompensation Time Spent With Patient Time: Total time managing care of this patient today ____ minutes.
[2025-05-19 14:59] LABS: Glucose, Whole Blood 219 mg/dL (60-115)
[2025-05-19 16:16] VITALS: BP 130/66; PULSE 88; RESP 17; TEMP 36.6; O2SAT 98
[2025-05-19 16:25] VITALS: BP 130/66
[2025-05-19] MEDS: Milk of Magnesia 30 ML ORAL.SUSP PO (18:13)
[2025-05-19 19:32] VITALS: BP 139/69; PULSE 95; RESP 16; TEMP 36.2; O2SAT 99
[2025-05-19 20:57] LABS: Appearance Urine Turbid; Glucose Urine UA >=1000 mg/dL (Negative); PH 6.5 (5.0-9.0); Specific Gravity - Urine 1.025 (1.005-1.025); UMIC TRIGGER UACC YES
[2025-05-19 21:25] LABS: UACC Culture Trigger YES
[2025-05-19 21:57] VITALS: BP 111/61
[2025-05-19] MEDS: Sulfamethox/Trimeth 800/160 TABLET 1 TAB PO (21:57)
--- NOTE | 2025-05-19 22:18 | PC.NURSE ---
Pt c/o abdominal and flank pain radiating to her lower back, rated more than 10 on pain scale. She c/o urinary frequency and dysuria, along with an odor to her urine. Pt reported a hx of UTIs which have caused hallucinations in the past. Provider salesperson floor coverings, Dr. Davis, notified and UACC & culture were ordered; pt provided sample shortly after. Results reviewed with Dr. Davis; pt was started on bactrim for UTI, 1st dose administered tonight with HS meds.
[2025-05-20 07:57] LABS: Glucose, Whole Blood 235 mg/dL (60-115)
[2025-05-20 08:00] VITALS: BP 108/59; PULSE 105; RESP 18; TEMP 36.2; O2SAT 97
[2025-05-20] MEDS: Latanoprost 0.005 % Ophth Sol 2.5 ML DROPS 1 DROP EYE-BOTH ×2 (08:22→20:11)
[2025-05-20] MEDS: Sulfamethox/Trimeth 800/160 TABLET 1 TAB PO ×2 (08:23→20:34)
[2025-05-20] MEDS: Venlafaxine HCl ER 150 MG CAP.ER.24H PO (08:23)
[2025-05-20] MEDS: Brimonidine Tartrate 0.2% Oph 5 ML BOTTLE 1 DROP EYE-RIGHT ×2 (08:40→20:00)
[2025-05-20] MEDS: timoloL maleate 0.5 % Oph Sol 5 ML DRBTL 1 DROP EYE-RIGHT ×2 (09:01→20:27)
--- NOTE | 2025-05-20 09:33 | P.PNPSI_ITS ---
Subjective Subjective Date of Service: 05/20/25 Reason For Visit: Decomp, ST and AH Subjective Notes: Conditional Voluntary Interim History: Patient was seen and discussed in rounds today. Records and plans were reviewed. She did sleep better with the hydroxyzine. Last night she was having lot of symptoms indicative of UTI and her urinalysis was indicative of that. In the past she has had previous episodes and had use Cipro which I wanted to void as a first-line because of risks benefits and put her on Bactrim for 10 days. She continues to be symptomatic. No SI. No changes were made today Review of Systems Review of Systems Dysuria Yes all other systems are reviewed and are negative Mental Status Exam Mental Status Exam Narrative: In today's visit she is alert, oriented and pleasant. Normal speech. Moderate eye contact. Affect is constricted and subdued. No acute signs of psychosis. No overt delusions. No SI. Cognitively he is intact on observation. Judgment intact Diagnostics Vital Signs (24Hr): Vital Signs - 24 hr 05/19/25 16:16 05/19/25 16:25 05/19/25 19:32 Temperature 97.9 F 97.1 F Pulse Rate 88 95 Respiratory Rate 17 16 Blood Pressure 130/66 130/66 139/69 Pulse Oximetry 98 99 Oxygen Delivery Method Room Air Room Air 05/19/25 21:57 05/19/25 21:57 05/20/25 08:00 Temperature 97.1 F Pulse Rate 105 H Respiratory Rate 18 Blood Pressure 111/61 111/61 108/59 L Pulse Oximetry 97 Oxygen Delivery Method Room Air BMI result Body Mass Index 22.8 Labs 05/10/25 14:12 05/17/25 07:39 Labs: Laboratory Results - last 48 hr 05/19/25 05/19/25 05/19/25 07:52 14:53 20:38 POC Glucose 178 H 219 H Urine Color Yellow Urine Appearance Turbid Urine pH 6.5 Ur Specific [place] 1.025 Urine Protein 300 (3+) H Urine Glucose (UA) >=1000 H Urine Ketones Trace Urine Blood Moderate (2+) H Urine Nitrite Positive H Ur Leukocyte Esterase Moderate (2+) H Urine RBC >20 H Urine WBC >50 H Ur Squamous Epith Cells 3-5 Urine Bacteria 2+ Hyaline Casts 0-2 Urine Yeast Present 05/20/25 07:44 POC Glucose 235 H Urine Color Urine Appearance Urine pH Ur Specific [place] Urine Protein Urine Glucose (UA) Urine Ketones Urine Blood Urine Nitrite Ur Leukocyte Esterase Urine RBC Urine WBC Ur Squamous Epith Cells Urine Bacteria Hyaline Casts Urine Yeast Medications Medications Current Medications Acetaminophen (Acetaminophen 325 Mg Tablet) 650 mg PO Q6H PRN PRN Reason: Headache/Pain, Scale 1-10 Last Admin: 05/19/25 20:25 Dose: 650 mg Al Hydroxide/Mg Hydroxide (Magnesium Hydrox/Alum Hydrox 30 Ml Oral.Susp) 30 ml PO Q6H PRN PRN Reason: Heartburn/Nausea Last Admin: 05/11/25 19:19 Dose: 30 ml Alprazolam (Alprazolam 0.5 Mg Tablet) 1 mg PO QID PRN PRN Reason: Anxiety Last Admin: 05/19/25 21:56 Dose: 1 mg Bisacodyl (Bisacodyl 5 Mg Tablet.Dr) 10 mg PO BEDTIME [facility] Last Admin: 05/19/25 21:55 Dose: 10 mg Brimonidine Tartrate (Brimonidine Tartrate 0.2% Oph 5 Ml Bottle) 1 drop EYE- RIGHT BID [facility] Last Admin: 05/20/25 08:40 Dose: 1 drop Cariprazine (Cariprazine Hcl 3 Mg Capsule) 3 mg PO BEDTIME [facility] Last Admin: 05/19/25 21:57 Dose: 3 mg Dicyclomine HCl (Dicyclomine Hcl 10 Mg Capsule) 10 mg PO QID [facility] Last Admin: 05/20/25 08:24 Dose: 10 mg Famotidine (Famotidine 20 Mg Tablet) 40 mg PO BEDTIME [facility] Last Admin: 05/19/25 21:55 Dose: 40 mg Hydroxyzine HCl (Hydroxyzine Hcl 50 Mg Tablet) 50 mg PO BEDTIME PRN PRN Reason: Sleep Lamotrigine (Lamotrigine 25 Mg Tablet) 25 mg PO BEDTIME [facility] Last Admin: 05/19/25 21:57 Dose: 25 mg Latanoprost (Latanoprost 0.005 % Ophth [place] 2.5 Ml Drops) 1 drop EYE-BOTH BID [facility] Last Admin: 05/20/25 08:22 Dose: 1 drop Magnesium Hydroxide (Milk Of Magnesia 30 Ml Oral.Susp) 30 ml PO DAILY PRN PRN Reason: Constipation Last Admin: 05/19/25 18:13 Dose: 30 ml Metformin HCl (Metformin Hcl 500 Mg Tablet) 500 mg PO BID [facility] Last Admin: 05/20/25 08:23 Dose: 500 mg Misoprostol (Misoprostol 200 Mcg Tablet) 200 mcg PO BID [facility] Last Admin: 05/20/25 08:24 Dose: 200 mcg Nicotine Polacrilex (Nicotine Polacrilex 2 Mg Gum) 2 mg BUCCAL Q2H PRN PRN Reason: Nicotine Cravings Omeprazole (Omeprazole 20 Mg Capsule.Dr) 20 mg PO BID [facility] Last Admin: 05/20/25 08:23 Dose: 20 mg Polyethylene Glycol (Polyethylene Glycol 3350 17 Gm Powd.Pack) 17 gm PO DAILY PRN PRN Reason: constipation Prazosin HCl (Prazosin Hcl 5 Mg Capsule) 5 mg PO BEDTIME [facility] Last Admin: 05/19/25 21:57 Dose: 5 mg Prazosin HCl (Prazosin Hcl 1 Mg Capsule) 1 mg PO BID@0900,1600 [facility]; Protocol Last Admin: 05/20/25 08:23 Dose: 1 mg Prazosin HCl (Prazosin Hcl 1 Mg Capsule) 2 mg PO BEDTIME [facility] Last Admin: 05/19/25 21:57 Dose: 2 mg Senna (Sennosides 8.6 Mg Tablet) 17.2 mg PO BEDTIME [facility] Last Admin: 05/19/25 21:56 Dose: 17.2 mg Simethicone (Simethicone 80 Mg Tab.Chew) 160 mg PO QID [facility] Last Admin: 05/20/25 08:23 Dose: 160 mg Timolol Maleate (Timolol Maleate 0.5 % Oph [place] 5 Ml Drbtl) 1 drop EYE-RIGHT BID [facility] Last Admin: 05/20/25 09:01 Dose: 1 drop Trimethoprim/Sulfamethoxazole (Sulfamethox/Trimeth 800/160 Tablet) 1 tab PO BID [facility] Last Admin: 05/20/25 08:23 Dose: 1 tab Venlafaxine HCl (Venlafaxine Hcl Er 150 Mg Cap.Er.24h) 150 mg PO DAILY [facility] Last Admin: 05/20/25 08:23 Dose: 150 mg Zolpidem Tartrate (Zolpidem Tartrate 5 Mg Tablet) 5 mg PO BEDTIME PRN PRN Reason: Insomnia Last Admin: 05/19/25 21:56 Dose: 5 mg Allergies Allergies Allergy/AdvReac Type Severity Reaction Status Date / Time empagliflozin AdvReac Gastrointestinal Verified 05/20/25 08:44 Upset Assessment & Plan Assessment & Plan (1) PTSD (post-traumatic stress disorder): Status: Acute Code(s): F43.10 - Post-traumatic stress disorder, unspecified (2) Bipolar disorder with depression: Status: Acute Code(s): F31.9 - Bipolar disorder, unspecified (3) QT prolongation: Status: Acute Code(s): R94.31 - Abnormal electrocardiogram [ECG] [EKG] Assessment and Plan: QT prolongation this elderly woman clearly related to a what appears to be Seroquel use. Patient on admission however seems to be on multiple medications that could be potentially prolonged QT interval. However Seroquel was withdrawn with normalization of QT interval. After reintroduction of Seroquel at a low- dose she again had QT prolongation. Discussed with the patient and says that she requires some medication for mood stabilization. Consider using medications that potentially do not cause significant QT prolongation. She understands the risk associated with QT prolongation did explain to her about risk of pro arrhythmias. She attest that she does not want to have significant risk associated with medications although she says she will need some medications do help with her mood swings and psychiatric health. Risks and benefits need to be balance. For now I would withdrawal Seroquel therapy. Replace her potassium and magnesium to potassium above 4 and magnesium above 2. With every medication introduction that can potentially length and QT interval please perform EKGs the following day. Titrate medications accordingly. Will sign of the case. Thank you for allowing me to partake in her care (4) Suicidal ideation: Status: Acute Code(s): R45.851 - Suicidal ideations Plan Ms. Mcintosh is a 69 yo F with h/o bipolar d/o, PTSD, delirium 2/2 UTI, Type II DM, HTN, GERD, fibromyalgia, celiac, pancreatitis, & ileus who was admitted to [facility] M3 due to AMS, hallucinations and SI. Pt was admitted w/ preliminary dx of delirium but there were no acute medical issues (UA neg for UTI) and collateral contact with pt's OP steamblaster indicated that pt has had similar presentations when trips were planned to go to Plan: Admitted to for safety/stabilization Legal status- -3-----d-a-y- -c-m-t-i-r-[id number]-s- -W-e-d- -1-0-/-8- - - Retracted 3- day on 05/15, back on CV 05/12/25: Qtc 570 on 05/11/25 at 7pm. Educated patient on rationale for discontinuing Seroquel, in spite being on high dose for almost 20 years. Also educated that stimulant in itself will not prolong QTC, but with a prolonged QTC there is a higher chance of arrhythmia and therefore also rationale for holding stimulant medication. Patient did appear to show understanding. Would like primary team to liaise with community provider Dr. Meli Patel ref med regimen after the weekend. 05/13/2025: No changes. Maalox for nausea given prolonged QTC. Will repeat EKG Wednesday05/14/2025. Otherwise, regarding medication regimen would like primary team to liaise with community provider Dr. Meli Patel after the weekend 05/14/25: QTc has shortened- now at 464 msec (with Seroquel being held over the weekend). Will check Mg, Ca++, re-check lytes. Pt was hypokalemic on day of admission, which could have contributed to prolonged QTC, normalized on day after admission (hypokelamia may have been 2/2 poor po intake prior to admission). Case discussed with Meli Patel CATHODE MAKER today. Per my discussion w/ Ms. Patel and pt and since pt has been hypertensive (which could be c/w benzo w/d- will increase alprazolam back to 1 mg 4x/day prn. Will start Seroquel 50 mg qd at 12:30 pm and 100 mg at bedtime. Will re-check EKG tomorrow am. 05/15/25: Retracted 3-day. Seroquel was d/c'd due to recurrent QTc prolongation. Seen by cardology, appreciate recs (see above). Pt was agreeable w plan to start lamotrigine for tx of bipolar d/o. Reviewed med r/b/a, including risk of rare but potentially life threatening SJS. Advised pt to contact her psychiatrist before re-starting the med if she goes without it for >2 days and to titrate the dose as instructed. Pt expressed an understanding. Will also titrate prazosin to 7 mg at hs to target nightmares. Otherwise continue current plan 05/16/25: Pt is agreeable w/ plan to start Vraylar 1.5 mg, which fortunately carries a low risk of QTc prolongation. Will check EKG tomorrow. otherwise continue current tx plan. Pt declined ECT, which reportedly helped in the past but was a/w significant cognitive SE : Mood has improved somewhat today. Tolerated Vraylar 1.5 mg well, QTc wnl (363 ms). Pt agrees w/ plan to titrate Vraylar to 3 mg starting tonight for mod stabilization/perceptual disturbances. otherwise continue current plan 05/18: continue tx plan. 05/19: Continue current regimen and plans. No new EKG to review since 05/17 with improved QTc 05/20: Continue current regimen and plans. Bactrim was started last night for 10 days Patient educated on: medication risk/benefits Reason for continued inpatient stay Substantial Risk for: med/psych decompensation Time Spent With Patient Time: Total time managing care of this patient today ____ minutes.
[2025-05-20 15:37] VITALS: BP 124/60; PULSE 102; RESP 16; TEMP 37.1; O2SAT 100
[2025-05-20 20:00] VITALS: BP 107/70; PULSE 99; RESP 16; TEMP 36.4; O2SAT 98
[2025-05-20 20:29] VITALS: BP 107/70
[2025-05-20 20:32] VITALS: BP 107/70
[2025-05-21 07:43] VITALS: BP 120/67; PULSE 90; RESP 20; TEMP 36.4; O2SAT 99
[2025-05-21 08:18] LABS: Glucose, Whole Blood 203 mg/dL (60-115)
[2025-05-21] MEDS: Venlafaxine HCl ER 150 MG CAP.ER.24H PO (08:18)
[2025-05-21] MEDS: Sulfamethox/Trimeth 800/160 TABLET 1 TAB PO ×2 (08:19→20:36)
[2025-05-21] MEDS: Latanoprost 0.005 % Ophth Sol 2.5 ML DROPS 1 DROP EYE-BOTH ×2 (08:23→20:31)
--- NOTE | 2025-05-21 08:34 | HO.PSYCHPN ---
Subjective Subjective Date of Service: 05/21/25 Reason For Visit: Decomp, ST and AH Subjective Notes: Conditional Voluntary Interim History: Patient was seen and discussed in rounds today. Records and plans were reviewed. She is doing better and no longer having any symptoms of urinary tract infection. She continues on the Bactrim. Questions about Bactrim discussed. Eating and sleeping adequately. Continues to have some auditory hallucinations specially at night. No SI. Affect is brighter. No changes were made today Review of Systems Review of Systems Yes all other systems are reviewed and are negative Mental Status Exam Mental Status Exam Narrative: In today's visit she is alert, oriented and pleasant. Normal speech. Moderate eye contact. Affect is constricted and subdued. No acute signs of psychosis. No overt delusions. No SI. Cognitively he is intact on observation. Judgment intact Diagnostics Vital Signs (24Hr): Vital Signs - 24 hr 05/20/25 15:37 05/20/25 20:00 05/20/25 20:29 Temperature 98.8 F 97.6 F Pulse Rate 102 H 99 Respiratory Rate 16 16 Blood Pressure 124/60 107/70 107/70 Pulse Oximetry 100 98 Oxygen Delivery Method Room Air Room Air 05/20/25 20:32 05/21/25 07:43 Temperature 97.6 F Pulse Rate 90 Respiratory Rate 20 Blood Pressure 107/70 120/67 Pulse Oximetry 99 Oxygen Delivery Method Room Air BMI result Body Mass Index 22.8 Labs 05/10/25 14:12 05/17/25 07:39 Labs: Laboratory Results - last 48 hr 05/19/25 05/19/25 05/20/25 14:53 20:38 07:44 POC Glucose 219 H 235 H Urine Color Yellow Urine Appearance Turbid Urine pH 6.5 Ur Specific [place] 1.025 Urine Protein 300 (3+) H Urine Glucose (UA) >=1000 H Urine Ketones Trace Urine Blood Moderate (2+) H Urine Nitrite Positive H Ur Leukocyte Esterase Moderate (2+) H Urine RBC >20 H Urine WBC >50 H Ur Squamous Epith Cells 3-5 Urine Bacteria 2+ Hyaline Casts 0-2 Urine Yeast Present 05/21/25 07:41 POC Glucose 203 H Urine Color Urine Appearance Urine pH Ur Specific [place] Urine Protein Urine Glucose (UA) Urine Ketones Urine Blood Urine Nitrite Ur Leukocyte Esterase Urine RBC Urine WBC Ur Squamous Epith Cells Urine Bacteria Hyaline Casts Urine Yeast Medications Medications Current Medications Acetaminophen (Acetaminophen 325 Mg Tablet) 650 mg PO Q6H PRN PRN Reason: Headache/Pain, Scale 1-10 Last Admin: 05/19/25 20:25 Dose: 650 mg Al Hydroxide/Mg Hydroxide (Magnesium Hydrox/Alum Hydrox 30 Ml Oral.Susp) 30 ml PO Q6H PRN PRN Reason: Heartburn/Nausea Last Admin: 05/11/25 19:19 Dose: 30 ml Alprazolam (Alprazolam 0.5 Mg Tablet) 1 mg PO QID PRN PRN Reason: Anxiety Last Admin: 05/20/25 20:30 Dose: 1 mg Bisacodyl (Bisacodyl 5 Mg Tablet.Dr) 10 mg PO BEDTIME [facility] Last Admin: 05/20/25 20:32 Dose: 10 mg Brimonidine Tartrate (Brimonidine Tartrate 0.2% Oph 5 Ml Bottle) 1 drop EYE-RIGHT BID [facility] Last Admin: 05/20/25 20:00 Dose: 1 drop Cariprazine (Cariprazine Hcl 3 Mg Capsule) 3 mg PO BEDTIME [facility] Last Admin: 05/20/25 20:31 Dose: 3 mg Dicyclomine HCl (Dicyclomine Hcl 10 Mg Capsule) 10 mg PO QID [facility] Last Admin: 05/21/25 08:18 Dose: 10 mg Famotidine (Famotidine 20 Mg Tablet) 40 mg PO BEDTIME [facility] Last Admin: 05/20/25 20:33 Dose: 40 mg Hydroxyzine HCl (Hydroxyzine Hcl 50 Mg Tablet) 50 mg PO BEDTIME PRN PRN Reason: Sleep Lamotrigine (Lamotrigine 25 Mg Tablet) 25 mg PO BEDTIME [facility] Last Admin: 05/20/25 20:33 Dose: 25 mg Latanoprost (Latanoprost 0.005 % Ophth [place] 2.5 Ml Drops) 1 drop EYE-BOTH BID COUNT [facility] Last Admin: 05/21/25 08:23 Dose: 1 drop Magnesium Hydroxide (Milk Of Magnesia 30 Ml Oral.Susp) 30 ml PO DAILY PRN PRN Reason: Constipation Last Admin: 05/19/25 18:13 Dose: 30 ml Metformin HCl (Metformin Hcl 500 Mg Tablet) 500 mg PO BID [facility] Last Admin: 05/21/25 08:18 Dose: 500 mg Misoprostol (Misoprostol 200 Mcg Tablet) 200 mcg PO BID [facility] Last Admin: 05/21/25 08:18 Dose: 200 mcg Nicotine Polacrilex (Nicotine Polacrilex 2 Mg Gum) 2 mg BUCCAL Q2H PRN PRN Reason: Nicotine Cravings Omeprazole (Omeprazole 20 Mg Capsule.Dr) 20 mg PO BID [facility] Last Admin: 05/21/25 08:20 Dose: 20 mg Polyethylene Glycol (Polyethylene Glycol 3350 17 Gm Powd.Pack) 17 gm PO DAILY PRN PRN Reason: constipation Prazosin HCl (Prazosin Hcl 5 Mg Capsule) 5 mg PO BEDTIME [facility] Last Admin: 05/20/25 20:29 Dose: 5 mg Prazosin HCl (Prazosin Hcl 1 Mg Capsule) 1 mg PO BID@0900,1600 [facility]; Protocol Last Admin: 05/21/25 08:18 Dose: 1 mg Prazosin HCl (Prazosin Hcl 1 Mg Capsule) 2 mg PO BEDTIME [facility] Last Admin: 05/20/25 20:32 Dose: 2 mg Senna (Sennosides 8.6 Mg Tablet) 17.2 mg PO BEDTIME [facility] Last Admin: 05/20/25 20:30 Dose: 17.2 mg Simethicone (Simethicone 80 Mg Tab.Chew) 160 mg PO QID [facility] Last Admin: 05/21/25 08:18 Dose: 160 mg Timolol Maleate (Timolol Maleate 0.5 % Oph [place] 5 Ml Drbtl) 1 drop EYE-RIGHT BID [facility] Last Admin: 05/20/25 20:27 Dose: 1 drop Trimethoprim/Sulfamethoxazole (Sulfamethox/Trimeth 800/160 Tablet) 1 tab PO BID [facility] Last Admin: 05/21/25 08:19 Dose: 1 tab Venlafaxine HCl (Venlafaxine Hcl Er 150 Mg Cap.Er.24h) 150 mg PO DAILY [facility] Last Admin: 05/21/25 08:18 Dose: 150 mg Zolpidem Tartrate (Zolpidem Tartrate 5 Mg Tablet) 5 mg PO BEDTIME PRN PRN Reason: Insomnia Last Admin: 05/20/25 20:33 Dose: 5 mg Allergies Allergies Allergy/AdvReac Type Severity Reaction Status Date / Time empagliflozin AdvReac Gastrointestinal Verified 05/20/25 08:44 Upset Assessment & Plan Assessment & Plan (1) PTSD (post-traumatic stress disorder): Status: Acute Code(s): F43.10 - Post-traumatic stress disorder, unspecified (2) Bipolar disorder with depression: Status: Acute Code(s): F31.9 - Bipolar disorder, unspecified (3) QT prolongation: Status: Acute Code(s): R94.31 - Abnormal electrocardiogram [ECG] [EKG] Assessment and Plan: QT prolongation this elderly woman clearly related to a what appears to be Seroquel use. Patient on admission however seems to be on multiple medications that could be potentially prolonged QT interval. However Seroquel was withdrawn with normalization of QT interval. After reintroduction of Seroquel at a low-dose she again had QT prolongation. Discussed with the patient and says that she requires some medication for mood stabilization. Consider using medications that potentially do not cause significant QT prolongation. She understands the risk associated with QT prolongation did explain to her about risk of pro arrhythmias. She attest that she does not want to have significant risk associated with medications although she says she will need some medications do help with her mood swings and psychiatric health. Risks and benefits need to be balance. For now I would withdrawal Seroquel therapy. Replace her potassium and magnesium to potassium above 4 and magnesium above 2. With every medication introduction that can potentially length and QT interval please perform EKGs the following day. Titrate medications accordingly. Will sign of the case. Thank you for allowing me to partake in her care (4) Suicidal ideation: Status: Acute Code(s): R45.851 - Suicidal ideations Plan Ms. Mcintosh is a 69 yo F with h/o bipolar d/o, PTSD, delirium 2/2 UTI, Type II DM, HTN, GERD, fibromyalgia, celiac, pancreatitis, & ileus who was [place] [facility] [place] due to AMS, hallucinations and SI. 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 Educated patient on rationale for discontinuing Seroquel, in spite being on high dose for almost 20 years. Also educated that stimulant in itself will not prolong QTC, but with a prolonged QTC there is a higher chance of arrhythmia and therefore also rationale for holding stimulant medication. Patient did appear to show understanding. Would like primary team to liaise with community provider Dr. Meli Patel ref med regimen after the weekend. 05/13/2025: No changes. Maalox for nausea given prolonged QTC. Will repeat EKG Wednesday05/14/2025. Otherwise, regarding medication regimen would like primary team to liaise with community provider Dr. Meli Patel after the weekend 05/14/25: QTc has shortened- now at 464 msec (with Seroquel being held over the weekend). Will check Mg, Ca++, re-check lytes. Pt was hypokalemic on day of admission, which could have contributed to prolonged QTC, normalized on day after admission (hypokelamia may have been 2/2 poor po intake prior to admission). Case discussed with Meli Patel DIGITAL EDITOR today. Per my discussion w/ Ms. Patel and pt and since pt has been hypertensive (which could be c/w benzo w/d- will increase alprazolam back to 1 mg 4x/day prn. Will start Seroquel 50 mg qd at 12:30 pm and 100 mg at bedtime. Will re-check EKG tomorrow am. 05/15/25: Retracted 3-day. Seroquel was d/c'd due to recurrent QTc prolongation. Seen by cardology, appreciate recs (see above). Pt was agreeable w plan to start lamotrigine for tx of bipolar d/o. Reviewed med r/b/a, including risk of rare but potentially life threatening SJS. Advised pt to contact her psychiatrist before re-starting the med if she goes without it for >2 days and to titrate the dose as instructed. Pt expressed an understanding. Will also titrate prazosin to 7 mg at hs to target nightmares. Otherwise continue current plan 05/16/25: Pt is agreeable w/ plan to start Vraylar 1.5 mg, which fortunately carries a low risk of QTc prolongation. Will check EKG tomorrow. otherwise continue current tx plan. Pt declined ECT, which reportedly helped in the past but was a/w significant cognitive SE : Mood has improved somewhat today. Tolerated Vraylar 1.5 mg well, QTc wnl (363 ms). Pt agrees w/ plan to titrate Vraylar to 3 mg starting tonight for mod stabilization/perceptual disturbances. otherwise continue current plan 05/18: continue tx plan. 05/19: Continue current regimen and plans. No new EKG to review since 05/17 with improved QTc 05/20: Continue current regimen and plans. Bactrim was started last night for 10 days 05/21: Continue current regimen and plans. Patient educated on: medication risk/benefits Reason for continued inpatient stay Substantial Risk for: med/psych decompensation Time Spent With Patient Time: Total time managing care of this patient today ____ minutes.
[2025-05-21] MEDS: Brimonidine Tartrate 0.2% Oph 5 ML BOTTLE 1 DROP EYE-RIGHT ×2 (08:37→20:46)
[2025-05-21] MEDS: timoloL maleate 0.5 % Oph Sol 5 ML DRBTL 1 DROP EYE-RIGHT ×2 (08:48→20:19)
[2025-05-21 16:20] VITALS: BP 121/70
[2025-05-21 20:00] VITALS: BP 104/60; PULSE 99; RESP 18; TEMP 36.4; O2SAT 98
--- NOTE | 2025-05-22 | ECG_ITS ---
Test Reason : qtc Blood Pressure : */* mmHG Vent. Rate : 92 BPM Atrial Rate : 92 BPM P-R Int : 182 ms QRS Dur : 76 ms QT Int : 364 ms P-R-T Axes : 48 95 76 degrees QTcB Int : 450 ms Normal sinus rhythm Rightward axis Nonspecific T wave abnormality Abnormal ECG When compared with ECG of 17-May-2025 10:45, QT has lengthened Referred By: Ellen Dubon Electronically Signed By: Dereck Romero
[2025-05-22 08:00] VITALS: BP 93/50; PULSE 87; RESP 16; TEMP 36.6; O2SAT 96
[2025-05-22 08:06] LABS: Glucose, Whole Blood 237 mg/dL (60-115)
[2025-05-22] MEDS: Venlafaxine HCl ER 150 MG CAP.ER.24H PO (08:11)
[2025-05-22] MEDS: Sulfamethox/Trimeth 800/160 TABLET 1 TAB PO ×2 (08:11→21:02)
[2025-05-22] MEDS: Latanoprost 0.005 % Ophth Sol 2.5 ML DROPS 1 DROP EYE-BOTH ×2 (08:13→20:57)
[2025-05-22] MEDS: Brimonidine Tartrate 0.2% Oph 5 ML BOTTLE 1 DROP EYE-RIGHT ×2 (08:26→21:19)
[2025-05-22 08:29] VITALS: BP 96/57
[2025-05-22] MEDS: timoloL maleate 0.5 % Oph Sol 5 ML DRBTL 1 DROP EYE-RIGHT ×2 (08:41→21:06)
--- NOTE | 2025-05-22 09:03 | P.PNPSI_ITS ---
Subjective Subjective Date of Service: 05/22/25 Reason For Visit: Decomp, ST and AH Subjective Notes: Conditional Voluntary Interim History: Chart reviewed, case discussed in team Pt was started on Bactrim for a UTI over the weekend. UTI sx have improved She is feeling better from a psychiatric perspective, feels like she'll be ready to d/c home this wk. Depression/anxiety have improved, denies SI. Reports that hallucinations have improved. She had been hearing voices in the common area at night, which she couldn't hear when she wore ear plugs. She acknowledges that the voices were likely people actually speaking on the unit. Endorses ongoing issues w/ insomnia related to being in the hospital and off Seroquel. She isn't sure if he Vraylar is interfering w/ her sleep but doesnt want to take it earlier. It's easier for her to take all of her meds at bedtime. Medication Compliance: Yes Attending Groups: No Mental Status Exam Mental Status Exam Narrative: Appearance: lying in bed, good eye contact Attitude:Cooperative Speech: Fluent and wnl in regard to volume, tone, prosody Motor activity: Calm and without any tics, tremors or dyskinesias. Steady gait Mood: as noted above Affect: appropriate, reactive, generally bright Thought process: goal directed and without evidence of formal thought disorder Thought content: as noted above. Perception: Denies AH/VH and does not appear to respond to internal stimuli Alert/oriented in all spheres Cognition grossly intact Insight: intact Judgment: intact Diagnostics Vital Signs (24Hr): Vital Signs - 24 hr 05/21/25 16:20 05/21/25 20:00 05/22/25 08:00 Temperature 97.5 F 97.9 F Pulse Rate 99 87 Respiratory Rate 18 16 Blood Pressure 121/70 104/60 93/50 L Pulse Oximetry 98 96 Oxygen Delivery Method Room Air Room Air 05/22/25 08:29 Temperature Pulse Rate Respiratory Rate Blood Pressure 96/57 L Pulse Oximetry Oxygen Delivery Method BMI result Body Mass Index 22.8 Labs 05/10/25 14:12 05/17/25 07:39 Labs: Laboratory Results - last 48 hr 05/21/25 05/22/25 07:41 07:44 POC Glucose 203 H 237 H Medications Medications Current Medications Acetaminophen (Acetaminophen 325 Mg Tablet) 650 mg PO Q6H PRN PRN Reason: Headache/Pain, Scale 1-10 Last Admin: 05/19/25 20:25 Dose: 650 mg Al Hydroxide/Mg Hydroxide (Magnesium Hydrox/Alum Hydrox 30 Ml Oral.Susp) 30 ml PO Q6H PRN PRN Reason: Heartburn/Nausea Last Admin: 05/11/25 19:19 Dose: 30 ml Alprazolam (Alprazolam 0.5 Mg Tablet) 1 mg PO QID PRN PRN Reason: Anxiety Last Admin: 05/22/25 01:44 Dose: 1 mg Bisacodyl (Bisacodyl 5 Mg Tablet.Dr) 10 mg PO BEDTIME ARETHA Last Admin: 05/21/25 20:35 Dose: 10 mg Brimonidine Tartrate (Brimonidine Tartrate 0.2% Oph 5 Ml Bottle) 1 drop EYE- RIGHT BID [facility] Last Admin: 05/22/25 08:26 Dose: 1 drop Cariprazine (Cariprazine Hcl 3 Mg Capsule) 3 mg PO BEDTIME ARETHA Last Admin: 05/21/25 20:36 Dose: 3 mg Dicyclomine HCl (Dicyclomine Hcl 10 Mg Capsule) 10 mg PO QID ARETHA Last Admin: 05/22/25 08:11 Dose: 10 mg Famotidine (Famotidine 20 Mg Tablet) 40 mg PO BEDTIME ARETHA Last Admin: 05/21/25 20:35 Dose: 40 mg Hydroxyzine HCl (Hydroxyzine Hcl 50 Mg Tablet) 50 mg PO BEDTIME PRN PRN Reason: Sleep Last Admin: 05/22/25 01:44 Dose: 50 mg Lamotrigine (Lamotrigine 25 Mg Tablet) 25 mg PO BEDTIME ARETHA Last Admin: 05/21/25 20:36 Dose: 25 mg Latanoprost (Latanoprost 0.005 % Ophth [place] 2.5 Ml Drops) 1 drop EYE-BOTH BID [facility] Last Admin: 05/22/25 08:13 Dose: 1 drop Magnesium Hydroxide (Milk Of Magnesia 30 Ml Oral.Susp) 30 ml PO DAILY PRN PRN Reason: Constipation Last Admin: 05/19/25 18:13 Dose: 30 ml Metformin HCl (Metformin Hcl 500 Mg Tablet) 500 mg PO BID ARETHA Last Admin: 05/22/25 08:11 Dose: 500 mg Misoprostol (Misoprostol 200 Mcg Tablet) 200 mcg PO BID ARETHA Last Admin: 10/14/25 08:12 Dose: 200 mcg Nicotine Polacrilex (Nicotine Polacrilex 2 Mg Gum) 2 mg BUCCAL Q2H PRN PRN Reason: Nicotine Cravings Omeprazole (Omeprazole 20 Mg Capsule.Dr) 20 mg PO BID [facility] Last Admin: 05/22/25 08:11 Dose: 20 mg Polyethylene Glycol (Polyethylene Glycol 3350 17 Gm Powd.Pack) 17 gm PO DAILY PRN PRN Reason: constipation Last Admin: 05/21/25 21:08 Dose: 17 gm Prazosin HCl (Prazosin Hcl 5 Mg Capsule) 5 mg PO BEDTIME [facility] Last Admin: 05/21/25 20:40 Dose: 5 mg Prazosin HCl (Prazosin Hcl 1 Mg Capsule) 1 mg PO BID@0900,1600 [facility]; Protocol Last Admin: 05/22/25 08:29 Dose: Not Given Prazosin HCl (Prazosin Hcl 1 Mg Capsule) 2 mg PO BEDTIME [facility] Last Admin: 05/21/25 20:39 Dose: 2 mg Senna (Sennosides 8.6 Mg Tablet) 17.2 mg PO BEDTIME [facility] Last Admin: 05/21/25 20:35 Dose: 17.2 mg Simethicone (Simethicone 80 Mg Tab.Chew) 160 mg PO QID [facility] Last Admin: 05/22/25 08:11 Dose: 160 mg Timolol Maleate (Timolol Maleate 0.5 % Oph [place] 5 Ml Drbtl) 1 drop EYE-RIGHT BID [facility] Last Admin: 05/22/25 08:41 Dose: 1 drop Trimethoprim/Sulfamethoxazole (Sulfamethox/Trimeth 800/160 Tablet) 1 tab PO BID [facility] Last Admin: 05/22/25 08:11 Dose: 1 tab Venlafaxine HCl (Venlafaxine Hcl Er 150 Mg Cap.Er.24h) 150 mg PO DAILY [facility] Last Admin: 05/22/25 08:11 Dose: 150 mg Zolpidem Tartrate (Zolpidem Tartrate 5 Mg Tablet) 5 mg PO BEDTIME PRN PRN Reason: Insomnia Last Admin: 05/21/25 20:37 Dose: 5 mg Allergies Allergies Allergy/AdvReac Type Severity Reaction Status Date / Time empagliflozin AdvReac Gastrointestinal Verified 05/20/25 08:44 Upset Assessment & Plan Assessment & Plan (1) PTSD (post-traumatic stress disorder): Status: Acute Code(s): F43.10 - Post-traumatic stress disorder, unspecified (2) Bipolar disorder with depression: Status: Acute Code(s): F31.9 - Bipolar disorder, unspecified (3) QT prolongation: Status: Acute Code(s): R94.31 - Abnormal electrocardiogram [ECG] [EKG] Assessment and Plan: QT prolongation this elderly woman clearly related to a what appears to be Seroquel use. Patient on admission however seems to be on multiple medications that could be potentially prolonged QT interval. However Seroquel was withdrawn with normalization of QT interval. After reintroduction of Seroquel at a low- dose she again had QT prolongation. Discussed with the patient and says that she requires some medication for mood stabilization. Consider using medications that potentially do not cause significant QT prolongation. She understands the risk associated with QT prolongation did explain to her about risk of pro arrhythmias. She attest that she does not want to have significant risk associated with medications although she says she will need some medications do help with her mood swings and psychiatric health. Risks and benefits need to be balance. For now I would withdrawal Seroquel therapy. Replace her potassium and magnesium to potassium above 4 and magnesium above 2. With every medication introduction that can potentially length and QT interval please perform EKGs the following day. Titrate medications accordingly. Will sign of the case. Thank you for allowing me to partake in her care (4) Suicidal ideation: Status: Acute Code(s): R45.851 - Suicidal ideations Plan Ms. Mcintosh is a 69 yo F with h/o bipolar d/o, PTSD, delirium 2/2 UTI, Type II DM, HTN, GERD, fibromyalgia, celiac, pancreatitis, & ileus who was admitted to [facility] due to AMS, hallucinations and SI. 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 Educated patient on rationale for discontinuing Seroquel, in spite being on high dose for almost 20 years. Also educated that stimulant in itself will not prolong QTC, but with a prolonged QTC there is a higher chance of arrhythmia and therefore also rationale for holding stimulant medication. Patient did appear to show understanding. Would like primary team to liaise with community provider Dr. Meli Patel ref med regimen after the weekend. 05/13/2025: No changes. Maalox for nausea given prolonged QTC. Will repeat EKG Wednesday05/14/2025. Otherwise, regarding medication regimen would like primary team to liaise with community provider Dr. Meli Patel after the weekend 05/14/25: QTc has shortened- now at 464 msec (with Seroquel being held over the weekend). Will check Mg, Ca++, re-check lytes. Pt was hypokalemic on day of admission, which could have contributed to prolonged QTC, normalized on day after admission (hypokelamia may have been 2/2 poor po intake prior to admission). Case discussed with Meli Patel INFORMATION SYSTEMS DIRECTOR today. Per my discussion w/ Ms. Patle and pt and since pt has been hypertensive (which could be c/w benzo w/d- will increase alprazolam back to 1 mg 4x/day prn. Will start Seroquel 50 mg qd at 12:30 pm and 100 mg at bedtime. Will re-check EKG tomorrow am. 05/15/25: Retracted 3-day. Seroquel was d/c'd due to recurrent QTc prolongation. Seen by cardology, appreciate recs (see above). Pt was agreeable w plan to start lamotrigine for tx of bipolar d/o. Reviewed med r/b/a, including risk of rare but potentially life threatening SJS. Advised pt to contact her psychiatrist before re-starting the med if she goes without it for >2 days and to titrate the dose as instructed. Pt expressed an understanding. Will also titrate prazosin to 7 mg at hs to target nightmares. Otherwise continue current plan 05/16/25: Pt is agreeable w/ plan to start Vraylar 1.5 mg, which fortunately carries a low risk of QTc prolongation. Will check EKG tomorrow. otherwise continue current tx plan. Pt declined ECT, which reportedly helped in the past but was a/w significant cognitive SE 25: Mood has improved somewhat today. Tolerated Vraylar 1.5 mg well, QTc wnl (363 ms). Pt agrees w/ plan to titrate Vraylar to 3 mg starting tonight for mod stabilization/perceptual disturbances. otherwise continue current plan 05/18: continue tx plan. 05/19: Continue current regimen and plans. No new EKG to review since 05/17 with improved QTc 05/20: Continue current regimen and plans. Bactrim was started last night for 10 days 05/21: Continue current regimen and plans. 05/22: Phys/psychiatric sx have improved. Will continue current med regimen, re- check EKG to monitor QTc. Plan for d/c tomorrow if stable Patient educated on: medication risk/benefits Informed Consent: understands Reason for continued inpatient stay Substantial Risk for: med/psych decompensation Time Spent With Patient Time: Total time managing care of this patient today _25_ minutes.
[2025-05-22 15:45] VITALS: BP 110/66; PULSE 97
[2025-05-22 20:00] VITALS: BP 106/60; PULSE 100; RESP 18; TEMP 36.7; O2SAT 98
[2025-05-22 20:59] VITALS: BP 106/60
[2025-05-22 21:03] VITALS: BP 106/60
[2025-05-23 07:40] LABS: Glucose, Whole Blood 295 mg/dL (60-115)
[2025-05-23 07:42] VITALS: BP 107/61; PULSE 85; RESP 18; TEMP 36.8
[2025-05-23] MEDS: Sulfamethox/Trimeth 800/160 TABLET 1 TAB PO (08:09)
[2025-05-23] MEDS: Venlafaxine HCl ER 150 MG CAP.ER.24H PO (08:09)
--- NOTE | 2025-05-23 12:21 | PM.PSYDC ---
DS: Providers Provider Date of Service: 05/23/25 Date of admission: 05/10/25 17:49 Date of discharge: 05/23/25 Primary care physician: Unknown Physician Attending physician on admission: Ellen Dubon Consults: 05/15/25 09:24 Consult to Cardiology Routine Consulting Provider: [facility] Reason for consultation: QTc prolongation Attending physician on discharge: Ellen Dubon DS: Diagnosis Discharge Diagnosis (1) PTSD (post-traumatic stress disorder): Status: Acute (2) Bipolar disorder with depression: Status: Acute (3) QT prolongation: Status: Resolved (4) Suicidal ideation: Status: Resolved DS: Medications Discharge Medications Home Medications: Home Medications ?Medication ?Instructions ?Recorded ?Confirmed brimonidine 0.2 %-timolol 0.5 % 1 drp ophthalmic-Right BID 12/13/21 05/25/25 eye drops (Combigan) latanoprost 0.005 % eye drops 1 drp ophthalmic (eye) BID 11/10/22 05/25/25 Previous Rx's ?Medication ?Instructions ?Recorded sennosides 8.6 mg tablet (senna) 17.2 mg (2 x 8.6 mg) PO BEDTIME 12/21/23 constipation #60 tabs dicyclomine 10 mg capsule 10 mg PO QID #120 caps 12/29/24 Held on 06/07/25. Instructions: Doctor's Order misoprostol 200 mcg tablet 200 mcg PO BID #60 tabs 12/29/24 polyethylene glycol 3350 17 17 g PO DAILY #238 grams 04/12/25 gram/dose oral powder acetaminophen 325 mg tablet 650 mg (2 x 325 mg) PO Q6H PRN 05/23/25 Headache/Pain, Scale 1-10 #0 tabs alprazolam 1 mg tablet 1 mg PO QID PRN anxiety 30 days 05/23/25 #120 tabs cariprazine 3 mg capsule (Vraylar) 3 mg PO BEDTIME 30 days #30 caps 05/23/25 metformin 500 mg tablet 500 mg PO BID 30 days #60 tabs 05/23/25 methylphenidate HCl 20 mg 20 mg PO BID 30 days #60 tabs 05/23/25 tablet,extended release prazosin 1 mg capsule 2 mg (2 x 1 mg) PO BEDTIME 30 days 05/23/25 #60 caps prazosin 5 mg capsule 5 mg PO BEDTIME 30 days #30 caps 05/23/25 timolol maleate 0.5 % eye drops 1 drp ophthalmic-Right BID #0 mL 05/23/25 venlafaxine 150 mg 150 mg PO DAILY 30 days #30 caps 05/23/25 capsule,extended release 24 hr zolpidem 10 mg tablet 10 mg PO BEDTIME PRN Insomnia 30 05/23/25 days #30 tabs cephalexin 250 mg capsule 250 mg PO DAILY recurrent UTI 30 05/25/25 days #30 caps sulfamethoxazole 800 1 tab PO BID #10 tabs 05/25/25 mg-trimethoprim 160 mg tablet (Bactrim DS) Linzess 290 mcg capsule 290 mcg PO DAILY #30 caps 06/07/25 (linaclotide) bisacodyl 5 mg tablet,delayed 10 mg (2 x 5 mg) PO BEDTIME #60 06/07/25 release tabs prucalopride 2 mg tablet 2 mg PO DAILY #30 tabs 06/07/25 rabeprazole 20 mg tablet,delayed 20 mg PO BID #60 tabs 06/07/25 release simethicone 180 mg capsule 180 mg PO QID #120 caps 06/07/25 famotidine 40 mg tablet 40 mg PO BEDTIME #90 tabs 06/12/25 Mental Status Exam Mental Status Exam Narrative: Appearance: grooming/hygiene wnl. good eye contact. Attitude:Cooperative Speech: Fluent and wnl in regard to volume, tone, prosody Motor activity: Calm and without any tics, tremors or dyskinesias. Steady gait Mood: better Affect: appropriate, reactive, generally bright Thought process: goal directed and without evidence of formal thought disorder Thought content: Denies SI/violent ideation Perception: Denies current AH/VH and does not appear to respond to internal stimuli Alert/oriented in all spheres Cognition grossly intact Insight: intact Judgment: intact Data Data Completed and Pending Completed studies during hospitalization [Text1]: 05/19/25 Unknown Urine clean catch - Clean Catch Midstream Urine Culture - Final Escherichia coli Viridans streptococcus group DS: Summary Hospital Course Hospital Course: Ms. Mcintosh is a 69 yo F with h/o bipolar d/o, PTSD, delirium 2/2 UTI, Type II DM, HTN, GERD, fibromyalgia, celiac, pancreatitis, & ileus who was admitted to [facility] due to AMS, hallucinations and SI. On day of admission, she reported I was having a lot of hallucinations . She reports a h/o perceptual disturbances on a fairly regular basis, including olfactory hallucinations of a very strong/bothersome fragrance-like scent at her home that nobody else smells. She denies smelling it here. She often hears noises in her home that sound like someone is there when she's alone. She reports that the recent hallucinations are much more severe than her usual hallucinations, which she attributes to having a UTI. She recalls having these types of hallucinations in the past when she had a UTI. UA done at [facility] on 05/09 showed trace nitrites, elevated glucose, otherwise unremarkable. Per Crisis assessment, pt and her bath steward/stewardess were at the airport with plans to fly to [place] for vacation on 05/08 and pt c/o nausea while boarding and disembarked. She went to the ED in [place] and was treated for nausea, then d/c'd. The following day, she returned to the ED after reporting visual hallucinations to eval for UTI since she has a h/o delirium 2/2 UTIs. UA was negative and she was discharged home. Her family referred her to Crisis due to worsening psychotic sx/confusion, including VH of fleas and rats, tactile hallucinations of sores in her mouth, leading her to put things down her throat. She reportedly didn't eat or drink x 4 days, didn't take her meds x 2 days. Pt doesn't recall being in the airport prior to admission. She states that her sister was supposed to go to [place] and someone was supposed to stay home w/ her. She denies any new stressors recently and she feels like her recent sx are due to a UTI. Per unit staff here, pt was naked in her room and confused yesterday after admission. Psychiatric ROS: Trauma/PTSD: Pt endorses h/o trauma. She has been thinking a lot about neg things from the past, having flashbacks. She reports that her male 'bath steward/stewardess' with whom she lives has cheated on her multiple times in the past and she has a lot of difficulty w/ trust. Denies recent manic sx. Endorses intermittent depression and SI, with thoughts to cut herself or o/d on her pills. Denies recent self harming behaviors. Denies h/o violence or violent ideation Home Psychotroipc Medications: alprazolam 1 mg qid prn for anxiety-- per [employer] [employer]- has filled every month recently venlafaxine XR 150 mg qd methylphenidate ER 20 mg bid-- per pt, reduces depressive sx prazosin 6 mg qhs zolpidem 10 mg qhs prn quetiapine ER 400 mg qhs hydroxyzine 50 mg bid prn for anxiety Pt was admitted to [facility] for safety/stabilization on a CV. 05/12/25: Qtc 570 on 05/11/25 at 7pm. Educated patient on rationale for discontinuing Seroquel, in spite being on high dose for almost 20 years. Also educated that stimulant in itself will not prolong QTC, but with a prolonged QTC there is a higher chance of arrhythmia and therefore also rationale for holding stimulant medication. Patient did appear to show understanding. Would like primary team to liaise with community provider Dr. Meli Patel ref med regimen after the weekend. 05/13/2025: No changes. Maalox for nausea given prolonged QTC. Will repeat EKG Wednesday05/14/2025. 05/14/25: QTc has shortened- now at 464 msec (with Seroquel being held over the weekend). Will check Mg, Ca++, re-check lytes. Pt was hypokalemic on day of admission, which could have contributed to prolonged QTC, normalized on day after admission (hypokelamia may have been 2/2 poor po intake prior to admission). Case discussed with Meli Patel [employer] today. Per my discussion w/ Ms. Patel and pt and since pt has been hypertensive (which could be c/w benzo w/d)- will increase alprazolam back to 1 mg 4x/day prn. Will start Seroquel 50 mg qd at 12:30 pm and 100 mg at bedtime. Will re-check EKG tomorrow am. 05/15/25: Seroquel was d/c'd due to recurrent QTc prolongation. Seen by cardiology, who felt that the QTc prolongation was 2/2 Seroquel. Pt was agreeable w plan to start lamotrigine for tx of bipolar d/o. Reviewed med r/b/a, including risk of rare but potentially life threatening SJS. Advised pt to contact her psychiatrist before re-starting the med if she goes without it for >2 days and to titrate the dose as instructed. Pt expressed an understanding. Will also titrate prazosin to 7 mg at hs to target nightmares. Otherwise continue current plan 05/16/25: Pt is agreeable w/ plan to start Vraylar 1.5 mg, which fortunately carries a low risk of QTc prolongation. Will check EKG tomorrow. otherwise continue current tx plan. Pt declined ECT, which reportedly helped in the past but was a/w significant cognitive SE : Mood has improved somewhat today. Tolerated Vraylar 1.5 mg well, QTc wnl (363 ms). Pt agrees w/ plan to titrate Vraylar to 3 mg starting tonight for mod stabilization/perceptual disturbances. otherwise continue current plan 05/19: Started on Bactrim x 10 days after she was found to have UTI. 05/22: Pt reports that the hallucinations have improved. She had been hearing voices in the common area at night, which she couldn't hear when she wore ear plugs. She acknowledges that the voices were likely people actually speaking on the unit. Endorses ongoing issues w/ insomnia related to being in the hospital and off Seroquel. She isn't sure if he Vraylar is interfering w/ her sleep but doesnt want to take it earlier. It's easier for her to take all of her meds at bedtime. Will continue current med regimen, re-check EKG to monitor QTc. Plan for d/c tomorrow if stable EKG Vent. Rate : 92 BPM Atrial Rate : 92 BPM P-R Int : 182 ms QRS Dur : 76 ms QT Int : 364 ms P-R-T Axes : 48 95 76 degrees QTcB Int : 450 ms Normal sinus rhythm Rightward axis Nonspecific T wave abnormality 05/23: Stable. Feels safe with plan to be discharged today. Status at Discharge Functional status at discharge: independent ambulation Overall status at discharge: patient is back to baseline Time Spent with Patient Time attestation: Total time managing care of this patient today ____ minutes. Time spent: Less than 30 minutes Discharge Plan Discharge Anticipated Discharge Date/Time: 05/23/25 10:54 Patient Disposition: Home, Self-Care Discharge Diagnosis: PTSD, bipolar disorder Referrals: Meli Higueraedgarluke [Other] - 05/28/25 11:40 am Referral Note: in person appointment Name,MD Ham [Physician, Internal Medicine] - 06/07/25 10:00 am Referral Note: 05-23-25 Your follow up appt has been scheduled with Dr. Cheek Name on 06-07-25 @ 10am Discharge Medications: New prazosin 1 mg Capsule 2 mg PO BEDTIME 30 Days Qty: 60 0RF prazosin 5 mg Capsule 5 mg PO BEDTIME 30 Days Qty: 30 0RF acetaminophen 325 mg Tablet 650 mg PO Q6H PRN (Reason: Headache/Pain, Scale 1-10) Qty: 0 0RF alprazolam 1 mg tablet 1 mg PO QID PRN (Reason: anxiety) 30 Days Qty: 120 0RF Vraylar 3 mg Capsule 3 mg PO BEDTIME 30 Days Qty: 30 0RF venlafaxine 150 mg Capsule,Extended Release 24hr 150 mg PO DAILY 30 Days Qty: 30 0RF metformin 500 mg Tablet 500 mg PO BID 30 Days Qty: 60 0RF timolol maleate 0.5 % Drops 1 drp ophthalmic-Right BID Qty: 0 0RF Continued polyethylene glycol 3350 17 gram/dose powder 17 g PO DAILY Qty: 238 0RF brimonidine-timolol [Combigan] 0.2-0.5 % drops 1 drp ophthalmic-Right BID methylphenidate HCl 20 mg tablet extended release 20 mg PO BID 30 Days Qty: 60 0RF zolpidem 10 mg tablet 10 mg PO BEDTIME PRN (Reason: Insomnia) 30 Days Qty: 30 0RF latanoprost 0.005 % drops 1 drp ophthalmic (eye) BID sennosides [senna] 8.6 mg tablet 17.2 mg PO BEDTIME Qty: 60 6RF dicyclomine 10 mg capsule 10 mg PO QID Qty: 120 6RF misoprostol 200 mcg tablet 200 mcg PO BID Qty: 60 6RF Discontinued prazosin 2 mg Capsule 6 mg PO BEDTIME Qty: 90 0RF metformin 500 mg tablet 500 mg PO BID alprazolam 1 mg tablet 1 mg PO QID PRN (Reason: Anxiety) venlafaxine 75 mg capsule,extended release 24hr 150 mg PO DAILY quetiapine 400 mg tablet extended release 24 hr 400 mg PO BEDTIME hydroxyzine pamoate 50 mg capsule 50 mg PO BID PRN (Reason: Anxiety) metoclopramide HCl [Reglan] 10 mg tablet 10 mg PO QIDACHS Qty: 120 12RF No Action famotidine 40 mg tablet 40 mg PO BEDTIME Qty: 90 0RF cephalexin 250 mg capsule 250 mg PO DAILY 30 Days Qty: 30 5RF sulfamethoxazole-trimethoprim [Bactrim DS] 800-160 mg tablet 1 tab PO BID Qty: 10 0RF rabeprazole 20 mg tablet,delayed release (DR/EC) 20 mg PO BID Qty: 60 6RF Linzess 290 mcg capsule 290 mcg PO DAILY Qty: 30 1RF bisacodyl 5 mg tablet,delayed release (DR/EC) 10 mg PO BEDTIME Qty: 60 6RF prucalopride 2 mg tablet 2 mg PO DAILY Qty: 30 6RF simethicone 180 mg capsule 180 mg PO QID Qty: 120 6RF Discharge Orders: Discharge Order (Routine); Ordered 05/23/25 Ordered By: Ellen Dubon Diet: Regular diet Activity on Discharge: As tolerated Stand Alone Forms: Patient Portal Discharge page, Community Support Print Language: Zimbabwean Care Plan Goals: Continue taking your medications Follow up with your psychiatrist and therapist Health Concerns: Depression and anxiety UTI Plan of Treatment: Follow up with your psychiatric provider, PCP and other outpatient providers Take your medication as prescribed Assessment: Risk assessment at the time of discharge: Patient was interviewed on the day of discharge and found to be fully oriented, without any SI or violent ideation. Pt has improved insight and judgment and plans to continue treatment Pt is not at imminent risk of harm to self or others and has a safety plan that includes presenting to the closest ER or calling 911 if feeling unsafe. Pt has been observed closely by unit staff and has not engaged in any behaviors that suggest dangerous to self or others and has demonstrated appropriate bheaviors and impulse control. Discharge Date/Time: 05/23/25 11:20
== END 2025-05-23 11:20 | disposition home or self-care (01) | DRG 885 ==
LOC: HO.ED 16:32 → HO.PADLT16 18:09
PROVIDERS: Physician Assistant Medical; Psychiatry & Neurology Psychiatry; Admitting Provider Nurse Practitioner Psychiatric/Mental Health; Emergency Provider Emergency Medicine; Visit Provider Psychiatry & Neurology Psychiatry
DX: F31.9 Bipolar disorder, unspecified (principal); R45.851 Suicidal ideations; E11.9 Type 2 diabetes mellitus without complications; R94.31 Abnormal electrocardiogram [ECG] [EKG]; F43.10 Post-traumatic stress disorder, unspecified; F43.9 Reaction to severe stress, unspecified; K21.9 Gastro-esophageal reflux disease without esophagitis; H40.9 Unspecified glaucoma; D64.9 Anemia, unspecified; K59.04 Chronic idiopathic constipation; K58.9 Irritable bowel syndrome, unspecified; Z20.822 Contact with and (suspected) exposure to COVID-19; Z79.84 Long term (current) use of oral hypoglycemic drugs; Z79.899 Other long term (current) drug therapy
CPT/HCPCS: 36415; 80051; 80053; 80061; 80143; 80179; 80307; 81001; 81003; 82310; 82565; 82947; 83036; 83735; 84439; 84443; 85025; 87086; 87088; 87186; 87635; 90656; 93005; 99285

== ENCOUNTER → 2025-05-10 13:57 | Outpatient (BNV) | payer OTHER, SELFPAY | PROVIDERS: Admitting Provider Nurse Practitioner Psychiatric/Mental Health; Emergency Provider Emergency Medicine; Visit Provider Internal Medicine | DX: R94.31 Abnormal electrocardiogram [ECG] [EKG] (principal); Z13.6 Encounter for screening for cardiovascular disorders | CPT/HCPCS: 93010 ==

== ENCOUNTER 2025-05-10 17:49 | Outpatient (BNV) | payer OTHER, SELFPAY | END 2025-05-15 07:00 | PROVIDERS: Admitting Provider Nurse Practitioner Psychiatric/Mental Health; Emergency Provider Emergency Medicine; Visit Provider Internal Medicine Cardiovascular Disease | DX: R94.31 Abnormal electrocardiogram [ECG] [EKG] (principal) | CPT/HCPCS: 93010 ==

== ENCOUNTER 2025-05-10 17:49 | Outpatient (BNV) | payer OTHER, SELFPAY | END 2025-05-22 10:15 | PROVIDERS: Admitting Provider Nurse Practitioner Psychiatric/Mental Health; Emergency Provider Emergency Medicine; Visit Provider Internal Medicine Cardiovascular Disease | DX: R94.31 Abnormal electrocardiogram [ECG] [EKG] (principal); Z13.6 Encounter for screening for cardiovascular disorders | CPT/HCPCS: 93010 ==

== ENCOUNTER 2025-05-10 17:49 | Outpatient (BNV) | payer OTHER, SELFPAY | END 2025-05-17 10:45 | PROVIDERS: Admitting Provider Nurse Practitioner Psychiatric/Mental Health; Emergency Provider Emergency Medicine; Visit Provider Internal Medicine Cardiovascular Disease | DX: R94.31 Abnormal electrocardiogram [ECG] [EKG] (principal); Z13.6 Encounter for screening for cardiovascular disorders | CPT/HCPCS: 93010 ==

== ENCOUNTER 2025-05-10 17:49 | Outpatient (BNV) | payer OTHER, SELFPAY | END 2025-05-12 10:00 | PROVIDERS: Admitting Provider Nurse Practitioner Psychiatric/Mental Health; Emergency Provider Emergency Medicine; Visit Provider Internal Medicine | DX: R94.31 Abnormal electrocardiogram [ECG] [EKG] (principal); Z13.6 Encounter for screening for cardiovascular disorders | CPT/HCPCS: 93010 ==

== ENCOUNTER 2025-05-10 17:49 | Outpatient (BNV) | payer OTHER, SELFPAY | END 2025-05-14 09:00 | PROVIDERS: Admitting Provider Nurse Practitioner Psychiatric/Mental Health; Emergency Provider Emergency Medicine; Visit Provider Internal Medicine Cardiovascular Disease | DX: R94.31 Abnormal electrocardiogram [ECG] [EKG] (principal); Z13.6 Encounter for screening for cardiovascular disorders | CPT/HCPCS: 93010 ==

== ENCOUNTER → 2025-05-10 17:49 | Outpatient (BNV) | payer OTHER, SELFPAY | PROVIDERS: Admitting Provider Nurse Practitioner Psychiatric/Mental Health; Emergency Provider Emergency Medicine; Visit Provider Nurse Practitioner Family | DX: E11.9 Type 2 diabetes mellitus without complications (principal) | CPT/HCPCS: 99221 ==

== ENCOUNTER → 2025-05-10 17:49 | Outpatient (BNV) | payer OTHER, SELFPAY | PROVIDERS: Admitting Provider Nurse Practitioner Psychiatric/Mental Health; Emergency Provider Emergency Medicine; Visit Provider Psychiatry & Neurology Psychiatry | DX: F31.4 Bipolar disorder, current episode depressed, severe, without psychotic features (principal); F43.11 Post-traumatic stress disorder, acute; R45.851 Suicidal ideations; R94.31 Abnormal electrocardiogram [ECG] [EKG] | CPT/HCPCS: 90792; 99231; 99232; 99233 ==

== ENCOUNTER → 2025-05-10 17:49 | Outpatient (BNV) | payer OTHER, SELFPAY | PROVIDERS: Admitting Provider Nurse Practitioner Psychiatric/Mental Health; Emergency Provider Emergency Medicine; Visit Provider Internal Medicine Cardiovascular Disease | DX: R94.31 Abnormal electrocardiogram [ECG] [EKG] (principal) | CPT/HCPCS: 99222 ==

== ENCOUNTER 2025-05-25 13:52 | Outpatient (AMB) | payer OTHER, SELFPAY ==
--- NOTE | 2025-05-25 14:05 | A.OFFVIS_ITS ---
Intake Visit Reasons: 6 month follow up urethritis Intake Note: Patient is present for a 6m follow up/urethritis Urology Medications: None Antibiotic Allergy: None Blood Thinner: None PVR:0ml Accompanied by: Self / Same As Patient Allergies empagliflozin Adverse Reaction (Verified 05/25/25 14:05) Gastrointestinal Upset Medication List - Last Reconciled 05/25/25 by Robert Hoffman MD acetaminophen 650 mg (2 x 325 mg) PO Q6H PRN alprazolam 1 mg PO QID PRN 30 days bisacodyl 10 mg (2 x 5 mg) PO BEDTIME brimonidine-timolol 0.2-0.5 % (Combigan) 1 drp ophthalmic-Right BID cariprazine (Vraylar) 3 mg PO BEDTIME 30 days cephalexin 250 mg PO DAILY 30 days dicyclomine 10 mg PO QID famotidine 40 mg PO BEDTIME hydroxyzine HCl 50 mg PO BEDTIME PRN 30 days lamotrigine Take 1 tab po qd x 2 wks then take 2 tabs po qd 28 days latanoprost 0.005% 1 drp ophthalmic (eye) BID Linzess (linaclotide) 290 mcg PO DAILY NS metformin 500 mg PO BID 30 days methylphenidate HCl ER 20 mg PO BID 30 days misoprostol 200 mcg PO BID polyethylene glycol 3350 17 grams PO DAILY prazosin 1 mg See Protocol PO BID@0900,1600 30 days prazosin 5 mg PO BEDTIME 30 days prazosin 2 mg (2 x 1 mg) PO BEDTIME 30 days prucalopride 2 mg PO DAILY rabeprazole 20 mg PO BID sennosides (senna) 17.2 mg (2 x 8.6 mg) PO BEDTIME simethicone 180 mg PO QID sulfamethoxazole-trimethoprim 800-160 mg 1 tab PO BID 3 days sulfamethoxazole-trimethoprim 800-160 mg (Bactrim DS) 1 tab PO BID timolol maleate 0.5% 1 drp ophthalmic-Right BID venlafaxine ER 150 mg PO DAILY 30 days zolpidem 10 mg PO BEDTIME PRN 30 days HPI Comments Details: 05/25/25--Chana is here for six-month follow-up lower urinary tract symptoms of dysuria urethritis, also CT scan September 2024 notes punctate stones in the right kidney urinalysis is nitrite positive 3+ leukocytes 2+ protein Right kidney:Multifocal punctate less than 1.5 mm calculi in the midportion and lower pole 11/23/24-- History of Present Illness The patient is a 69-year-old female presenting with a follow-up on recurrent urinary tract infection and management of atrophic vaginitis. Post-procedure, the patient experienced symptoms consistent with a urinary tract infection, which were effectively treated with antibiotics. Status post cystoscopy hydrodistention on 11/07/2024-bladder within normal limits, there were atrophic changes noted at the urethral mucosa and bladder neck. There were no suspicious bladder lesions seen. I discussed the use of Estrace cream for symptoms of atrophic vaginitis due to postmenopausal estrogen deficiency. I have discussed benefits of vaginal estrogen use in the treatment of recurrent UTI's in yoko and post menaupausal women. Vaginal estrogen has been found to decrease vaginal PH, increase lactobacillus in the epithium of the vagina. A plan for a follow-up in six months was confirmed to monitor ongoing management. 07/27/24--Makenna is here for evaluation of recurrent UTI's. She states that she has urinary symptoms of burning with urination and it feels like something sharp in her urethra. She has urinary frequency during the daytime every hour. She is up 1 time at night to urinate. She states that she has had visible blood in the urine. She states that she saw a urologist in the past and had a trial of InterStim that was painful and did not work. Chart reviewed, No recent Upper tract imaging, CTAP-- 12/2021 - tiny calculi right kidney 1-3 mm. I have discussed further evaluation with CT urogram and outpatient cystoscopy. Will send today's urine for cytology and culture. Will empirically place her on doxycycline 100 mg twice a day for 10 days. Labs: All three Urine c/s mixed bacteria: 04/20/24, 05/05/24, 06/26/24 [facility] Medical History Bipolar disorder PTSD (post-traumatic stress disorder) Depression Anxiety Fibromyalgia Schizophrenia Anemia Ileus Tubular adenoma of colon History of pancreatitis Irritable bowel syndrome with constipation Diverticulitis GERD (gastroesophageal reflux disease) Chronic idiopathic constipation Surgical History History of esophagogastroduodenoscopy (EGD) Hx of colonoscopy Family History Father No problems noted. Mother Diabetes Melanoma Family history of hypertension Family history of diabetes mellitus Social History Household Members: Spouse Housing: Unknown / Unable to assess Are you a primary wound care coordinator to a significant other at home: No Do you presently have visiting nurse or other home services: No Alcohol intake: never Patient Tobacco Use Status: Never used Tobacco Second Hand Smoke Exposure: No service: No Current occupational status: disabled Sexual orientation: Straight/Heterosexual Review of Systems Const All systems reviewed & are unremarkable except as noted in HPI and below Reports no additional complaints Eyes Reports no additional complaints ENT Reports no additional complaints Card Reports no additional complaints Resp Reports no additional complaints GI Reports no additional complaints Reports as per HPI Musc Reports no additional complaints Skin/Breast Reports system reviewed and no additional complaints, except as documented Neuro Reports no additional complaints Psych Reports no additional complaints Endo Reports no additional complaints Deo/Lymph Reports no additional complaints Aller/Immun Reports no additional complaints Office Procedures Post Void Residual Post Residual Void Post Void Residual (PVR): 0 00349-Clco Void Residual by ultrasound Results AMB Urinalysis, Automated UA Leukoctes 500 Micha/uL Last Edit by Jojo Breaux on 05/25/25 17:01 UA Nitrite Positive Last Edit by Jojo Breaux on 05/25/25 17:01 UA Urobilinogen 1 mg/dL Last Edit by Jojo Breaux on 05/25/25 17:01 UA Protein 100 mg/dL Last Edit by Jojo Breaux on 05/25/25 17:01 UA pH 5.5 Last Edit by Jojo Breaux on 05/25/25 17:01 UA Blood 0 Raulito/uL Last Edit by Jojo Breaux on 05/25/25 17:01 UA Specific [place] 1.030 Last Edit by Jojo Breaux on 05/25/25 17:01 UA Ketone Positive Last Edit by Jojo Breaux on 05/25/25 17:01 UA Bilirubin 2 mg/dL Last Edit by Jojo Breaux on 05/25/25 17:01 UA Glucose 0 mg/dL Last Edit by Jojo Breaux on 05/25/25 17:01 Results Reviewed Results Reviewed: Date of Service: 09/19/24 EXAMINATION: CT ABDOMEN AND PELVIS WITHOUT AND WITH CONTRAST CLINICAL INFORMATION: Hematuria. COMPARISON: December 12, 2021. TECHNIQUE: Noncontrast CT of the abdomen and pelvis is performed followed by split bolus contrast-enhanced images using 85 mL Omnipaque 350 contrast. Postcontrast imaging is performed during the combined nephrogram and excretion phase. Sagittal and coronal reformatted images were obtained on the technologist's workstation for both the precontrast and postcontrast phases. This CT examination was performed using dose optimization techniques as appropriate, variously including the following: *Automated exposure control *Adjustment of mA and/or kV according to patient size (this includes techniques or standardized protocols for targeted exams where dose is matched to indication/reason for exam; i.e. extremities or head) *Use of iterative reconstruction technique DLP: 503 mGy centimeter FINDINGS: LIVER, GALLBLADDER, AND BILIARY TREE: Liver measures 17 cm. Decreased enhancement pattern involving mostly the right hepatic lobe. No focal mass. No intrahepatic biliary ductal dilatation. Main portal veins, hepatic veins and intrahepatic portion of the IVC are patent. Focal sparing normal parenchyma of the left hepatic lobe and caudate lobe Status post cholecystectomy. Common bile duct measures 5 mm. PANCREAS: No focal mass. No peripancreatic fluid collection. No main pancreatic ductal dilatation. Fatty morphology pattern/density involving the head and uncinate process. SPLEEN: 9 cm. No focal lesion. ADRENAL GLANDS: No nodular lesions. KIDNEYS AND URETERS: Right kidney: Multifocal punctate less than 1.5 mm calculi in the midportion and lower pole of the pelvicalyceal system. No hydronephrosis. Subcentimeter nonenhancing fluid density in the lower pole. No renal mass. Normal enhancement pattern of the renal parenchyma with the normal urinary excretion into the collecting system. Left kidney: No hydronephrosis. No nephrolithiasis. Subcentimeter cyst. No enhancing mass. Normal enhancement of the renal parenchyma and normal urinary excretion into the collecting system. BLADDER: Fluid-filled nearly collapsed. GASTROINTESTINAL TRACT: Abundant stool within the large intestine. No intestinal obstruction pattern. Collapsed appearance of the ascending colon versus less likely wall thickening. No pneumatosis intestinalis. The cecum and ascending colon is within the right lower pelvis abutting the superior margin of the bladder. The appendix is normal. ABDOMINAL WALL: Small tiny fat-containing umbilical hernia. LYMPH NODES: Nonspecific prominent mesenteric lymph nodes. VASCULAR: No aneurysm or dissection, abdominal aorta. PELVIC VISCERA: No gross masses. OSSEUS STRUCTURES: Multilevel lower thoracic and lower lumbar spondylosis more conspicuous at L5-S1. Nonspecific 5 mm lytic lesion at S1. CT/CT urogram IMPRESSION: Nonobstructing nephrolithiasis, right kidney. Bilateral subcentimeter renal cysts. Hepatomegaly and hepatic steatosis. Assessment & Plan Assessment & Plan (1) Recurrent UTI: Code(s): N39.0 - Urinary tract infection, site not specified Category: Medical Orders: Orders US renal BI 1 Month N39.0 - Urinary tract infection, site not specified AMB Urinalysis Automated Today N39.0 - Urinary tract infection, site not specified Medications: New sulfamethoxazole-trimethoprim 800-160 mg (Bactrim DS) 1 tab PO BID 10 tabs 0RF cephalexin 250 mg PO DAILY 30 days 30 caps 5RF recurrent UTI N39.0 - Urinary tract infection, site not specified Coding Diagnoses Recurrent UTI N39.0 CPT Codes Post Residual Void - PVR CPT Code: 18069-Cuhz Void Residual by ultrasound ([id number])
--- OUTSIDE RECORDS SUMMARY | 2025-05-25 16:18 | XMS_ITS | Patient Health Record ---
Author Organization [facility] Address [address] [place] [address] Care Team Providers Care Frit Maker Name Role Phone Dragan Tejeda Jr Reason For Referral No Information Plan Of Treatment No Information
--- OUTSIDE RECORDS SUMMARY | 2025-05-25 16:18 | XMS_ITS | Encounter Summary ---
Author Organization [employer] Address [address] [facility] [address]t [place] [address] Care Team Providers Care Saddle Stitch Operator Name Role Phone Name, Ham HERRING Primary Care Provider [phone] Marya Echavarria PharmD Unavailable [phone] Reason for Visit * Reason Comments Med Refill Encounter Details Date Type Department Care Team ([facility] st Contact Info) Description 04/18/2024 Refill [facility] [address] [place], [place] [phone] Name, MD Ham [address] [place] [address] Acute herpes zoster neuropathy Social History Tobacco [...] Upcoming Encounters Date Type Department Care Team ([facility] st Contact Info) Description 06/07/2025 10:00 AM EDT Office Visit [facility] [address] [place] [address] NameHam MD [address] [place] [address] 06/19/2025 9:30 AM EST Medication Management [facility] [address] [place] [address] Marya Echavarria, PharmD [address] [place] [address] 06/26/2025 1:00 PM EST Office Visit [facility] [address] [place] [address] Sabrina Wilson, OD [address] [place] [address] 06/27/2025 11:15 AM EST Office Visit [facility] [address] [place] [address] NameHam MD [address] [place] [address] documented as of this encounter Visit Diagnoses Diagnosis Acute herpes zoster neuropathy documented in this encounter Additional Health Concerns Assessment Noted Time PHQ-9 Depression Total Score: 11 024 3:36 PM EDT documented as of this encounter Care Teams Saddle Stitch Operator Relationship Specialty Start Date End Date Name, MD Ham [address] [place] [address] PCP - General Family Medicine 01/28/16 Marya Echavarria, [place] [address] [place] [address] Pharmacist Internal Medicine 01/11/25 documented as of this encounter
--- OUTSIDE RECORDS SUMMARY | 2025-05-25 16:18 | XMS_ITS | Encounter Summary ---
Author Organization [employer] Address [address] [place] [address] 7t [place] [address] Care Team Providers Care Plant Operations Vice President Name Role Phone Name, Ham HERRING Primary Care Provider [phone] Marya Echavarria PharmD Unavailable [phone] Reason for Visit * Reason Comments Med Refill Encounter Details Date Type Department Care Team ([facility] st Contact Info) Description 05/30/2024 Refill [facility] [address] [place] [address] Name, MD Ham [address] [place] [address] Social History Tobacco Use Types Packs/Day Years [...] Care Team (Late st Contact Info) Description 06/07/2025 10:00 AM EDT Office Visit [facility] [address] [place] [phone] NameHam MD [address] [place] [address] 06/19/2025 9:30 AM EST Medication Management [facility] [address] [place] [address] Marya Echavarria, PharmD [address] [place] [address] 06/26/2025 1:00 PM EST Office Visit [facility] [address] [place] [address] Sabrina Wilson, OD [address] [place] [address] 06/27/2025 11:15 AM EST Office Visit [facility] [address] [place] [address] Ham Hay MD [address] [place] [address] documented as of this encounter Visit Diagnoses Not on filedocumented in this encounter Additional Health Concerns Assessment Noted Time PHQ-9 Depression Total Score: 24 024 11:40 AM EDT documented as of this encounter Care Teams Plant Operations Vice President Relationship Specialty Start Date End Date Name, MD Ham [address] [place] [address] PCP - General Family Medicine 01/28/16 Marya Echavarria, [place] [address] [place] [address] Pharmacist Internal Medicine 01/11/25 documented as of this encounter
--- OUTSIDE RECORDS SUMMARY | 2025-05-25 16:18 | XMS_ITS | Clinical Summary ---
Author Organization [employer] Address [address] [place] [address] 7t [place] [address] Care Team Providers Care Pipe Jeeper Name Role Phone Name, Ham HERRING Primary Care Provider [phone] Marya Echavarria PharmD Unavailable [phone] Allergies Active Allergy Reactions Criticality Noted [...] BY MOUTH AT BEDTIME 2 Active Creon [id number] units capsule Take 1 capsule by mouth [...] by mouth Once per day. 5 Active methylphenidate ER (Metadate ER) 20 MG CR tablet Take 1 tablet by mouth 2 times daily. 5 Active methylphenidate (Ritalin) 10 MG tablet Take 10 mg [...] 5 Active Tirzepatide (Mounjaro) 5 MG/0.5ML solution auto-injectorIn dications:Type 2 diabetes mellitus without complication, without long-term current use of insulin ([facility]) Inject 5 mg under the skin 1 (one) time per week. Do not start before February 07, 2025. 2 mL 11 5 Active Blood Glucose Monitoring Suppl (Gift Card Impressions Precision Issac System) w/Device kitIndications: Type 2 diabetes mellitus without complication, without long-term current use of insulin (HCC) 1 each Once per day. 1 kit 5 Active ondansetron (Zofran) 4 MG tablet Take 1 tablet (4 mg) by mouth every 8 (eight) hours if needed for nausea or vomiting. 60 tablet 1 5 Active glucose 4 g chewable tabletIndicatio ns:Type 2 diabetes mellitus without complication, without long-term current use of insulin ([facility]),Hypoglyce janiya Chew 4 tablets (16 g) if needed for low blood sugar. <70 mg/dL. Repeat treatment as needed. 40 tablet 5 5 01/12/20 26 Active glucose blood (FreeStyle Precision Issac Test) test stripIndication s:Type 2 diabetes mellitus without complication, without long-term current use of insulin ([facility]) Use to test blood sugar up once daily, as directed 50 each 11 5 Active FreeStyle lancetsIndicati ons:Type 2 diabetes mellitus without complication, without [...] BREAKFAST AND DINNER 5 Active metFORMIN XR (Glucophage-XR) 500 MG 24 hr tabletIndicatio ns:Type 2 diabetes mellitus without complication, without long-term current use of insulin ([facility]) Take 1 tablet (500 mg) by mouth with evening meal. Do not crush, chew, or split. 90 tablet 1 5 Active clotrimazole-be tamethasone (Lotrisone) cream Apply topically 2 times daily [...] organization. Date Type Department Care Team Description 05/23/2025 Patient Outreach [facility] [address] [place] [address] Ham Hay MD Transition Of Care (Tcm) (HDF Scheduled. ) 05/17/2025 Telephone [facility] [address] [place], [place] [phone] Ham Hay MD 05/16/2025 Telephone [facility] [address] Ham Hay MD 05/09/2025 Orders Only GENERIC EXTERNAL DATA DEPARTMENT Provider, Generic External Data 04/17/2025 Telephone [place] [address] Ham Hay MD Appointment Request 04/13/2025 Telephone [place] [address] Ham Hay MD Med Refill 04/06/2025 Results Follow-Up [facility] Avalos [phone] Ham Hay MD Comprehensive Metabolic Panel, Lipid Panel with Reflex to Direct LDL 04/02/2025 10:00 AM EDT Office Visit [facility] Avalos [phone] Ham Hay MD Type 2 diabetes mellitus without complication, without long-term current use of insulin ([facility]) (Primary Dx) 04/02/2025 Orders Only [place] [address] Ham Hay MD 04/02/2025 Travel 03/29/2025 Refill [place] [address] Ham Hay MD 03/21/2025 Telephone [place] [address] Marya Echavarria, PharmD 03/13/2025 Telephone [place] [address] Ham Hay MD Med Refill 02/22/2025 Telephone [place] [address] Ham Hay MD Medication Question from Last 3 Months Immunizations Immunization Administration [...] Description 06/07/2025 10:00 AM EDT Office Visit [facility] [address] [place] [address] NameHam MD [address] [place] [address] 06/19/2025 9:30 AM EST Medication Management [facility] [address] [place] [address] PuiaMarya, PharmD [address] [place] [address] 06/26/2025 1:00 PM EST Office Visit [facility] [address] [place] [address] TarkaSabrina, OD [address] [place] [address] 06/27/2025 11:15 AM EST Office Visit [facility] [address] [place] [address] NameHam MD [address] [place] [address] Health Maintenance Due Date Last Done Comments [...] 2025 06/03/2022, 07/02/2021, 10/22/2020, Additional history exists Mammogram 05/29/2025 05/29/2024, 05/10, 05/28/2023, Additional history exists Diabetes: Hemoglobin A1C 10/03/2025 025, 01/11/2025, 10/20/2024, Additional history exists SDOH Screening 10/20/2025 10/20/2024 Alcohol/Substance Use Screening 04/02/2026 04/02/2025 Depression Screening 04/02/2026 04/02/2025, 08/31/19 23 Diabetes: Foot Exam 04/02/2026 04/02/2025, 04/02/2025, 04/02/2025, Additional history exists Lipid Panel 04/02/2026 04/02/2025, 06/08/2023, 01/19/2023, Additional history exists Tobacco Screening 04/02/2026 04/02/2025 Colonoscopy 05/09/2026 05/09/2019 Colorectal Cancer Screening 05/09/2026 DTaP/Tdap/Td Vaccines (3 - Td or Tdap) 02/10/2034 02/11/2024, 10/07/2011, 07/07/2001 Pneumococcal Vaccine: 50+ Years Completed 06/30/2023, 10/24/2018 Influenza Vaccine Completed 05/11/2025, , 06/30/2023, Additional history exists HIB Vaccines Aged Out [...] without long-term current use of insulin (CMS/HCC) BI MAMMOGRAM SCREENING TOMOSYNTHESIS BILATERAL Routine 05/29/2024 11:38 AM EDT ALBUMIN, RANDOM URINE W/CREATININE Routine 01/18/2024 8:56 AM EDT Type 2 diabetes mellitus without complication, without long-term current use of insulin (CMS/HCC) HM COLONOSCOPY Routine 05/09/2019 from Last 3 Months or Most Recently Relevant to Health Maintenance Results * (ABNORMAL) Drug Monitoring, Panel 1, Screen, Urine (05/09/2025 9:37 AM EDT) Opiate Screen Urine Not Detected Not Detect [facility] Comment:Opiate cut-off is 30 0 ng/mL.Positive results are unconfirmed and should not be used fornon-medical purposes. Barbiturates, Urine Not Detected Not Detect [facility] Comment:Barbiturate cut-off is 200 ng/mL.Positive results are unconfirmed and should not be used fornon-medical purposes. Phencyclidine Screen Urine Not Detected Not Detect [facility] Comment:Phencyclidine cut-of f is 25 ng/mL.Positive results are unconfirmed and should not be used fornon-medical purposes. Amphetamine Screen Urine Not Detected Not Detect [facility] Comment:Amphetamine cut-off is 1000 ng/mL.Positive results are unconfirmed and should not be used fornon-medical purposes. Benzodiazepines Screen Urine POSITIVE(A) Not Detect [facility] Comment:Benzodiazepine cut-o ff is 200 ng/mL.Positive results are unconfirmed and should not be used fornon-medical purposes. Cocaine Screen Urine Not Detected Not Detect [facility] Comment:Cocaine cut-off is 3 00 ng/mL.Positive results are unconfirmed and should not be used fornon-medical purposes. Cannabinoid Screen Urine Not Detected Not Detect [facility] Comment:Cannabinoid cut-off is 50 ng/mL.Positive results are unconfirmed and should not be used fornon-medical purposes. Methadone Screen, Urine Not Detected Not Detect ng/mL [facility] Comment:Methadone cut-off is 300 ng/mL.Positive results are unconfirmed and should not be used fornon-medical purposes. FENTANYL URINE Not Detected Not Detect [facility] Comment:Fentanyl cut-off is 1 ng/mL.Positive results are unconfirmed and should not be used fornon-medical purposes. Oxycodone Urine Screen Not Detected Not Detect ng/mL [facility] Comment:Oxycodone cut-off is 100 ng/mL.Positive results are unconfirmed and should not be used fornon-medical purposes. Buprenorphine Screen Not Detected Not Detect ng/mL [facility] Comment:Buprenorphine cut-of f is 5 ng/mL.Positive results are unconfirmed and should not be used fornon-medical purposes. 05/09/2025 9:37 AM EDT 05/09/2025 9:40 AM EDT us Generic External Data Provider LAB URINE ORDERAB LES Final Result Performing Organization Address [facility] Co de Phone Number [facility] [address] [place] [phone] * (ABNORMAL) Urinalysis Complete (05/09/2025 9:37 AM EDT) Color Urine Yellow [facility] Appearance Urine Clear [facility] PH 7.0 5.0 - 9.0 [facility] Glucose Urine UA 100(A) Negative mg/dL [facility] Urine Blood Negative Negative [facility] Specific Tyler - Urine 1.015 1.005 - 1.025 [facility] Urine Protein Trace Neg-Trace mg/dL [facility] Urine Ketones >=160 Negative mg/dL [facility] Nitrite Urine Negative Negative [facility] Leukocyte Esterase Urine Trace(A) Negative [facility] RBC Urine 0-2 0 - 2 /HPF [facility] Urine WBC 0-5 0 - 5 /HPF [facility] Urine Squamous Epithelial Cell 0-2 0 - 2 /HPF [facility] Urine Bacteria None Seen None Seen [facility] Hyaline Casts, Urine 0-2 0 - 2 /LPF [facility] 05/09/2025 9:37 AM EDT 05/09/2025 9:40 AM EDT us Generic External Data Provider LAB URINE ORDERAB LES Final Result Performing Organization Address [facility]/ZIP Co de Phone Number [facility] [address] [place] [phone] * Lipid Panel with Reflex to Direct LDL (04/02/2025 10:15 AM EDT) Triglycerides 145 <150 mg/dL [facility] Comment:Desirable Triglyceri de: less than 150 mg/dLBorderline High Triglyceride 150-199 mg/dLHigh Triglyceride: 200-499 mg/dLVery High Triglyceride: greater than or equal to 5OO mg/dL Cholesterol 167 <200 mg/dL [facility] Comment:Desirable Cholestero l: less than 200 mg/dLBorderline High Cholesterol: 200-239 mg/dLHigh Cholesterol: greater than 239 mg/dL LDL Cholesterol Calculated 81 <100 mg/dL [facility] Comment:Desirable LDL: less than 100 mg/dLNear Optimal/Above Optimal LDL: 110- 129 mg/dLBorderline High LDL: 130-159 mg/dLHigh LDL: 160-189 mg/dLVery High LDL: greater than or equal to 190 mg/dL HDL Cholesterol 57 >40 mg/dL [facility] Comment:Desirable HDL: great er than 40 mg/dL Note: This HDL assay may give artificially low results in patients with liver disease. 04/02/2025 10:1 5 AM EDT 04/02/2025 11:25 AM EDT Ham Hay MD LAB BLOOD ORDERABLES Final Resul t Performing Organization Address City/[facility]/ZIP Co de Phone Number [facility] [address] [place] [address] [phone] * Magnesium (04/02/2025 10:15 AM EDT) Magnesium 2.3 1.6 - 2.6 mg/dL [facility] Blood Venous blood specimen / Unknown 04/02/2025 10:15 AM EDT 04/02/2025 11:28 AM EDT Perfecto Pat MD LAB BLOOD ORDERABLES Final Resul t Performing Organization Address City/[facility]/ZIP Co de Phone Number [facility] [address] [place] [address] [place] [address] [phone] * (ABNORMAL) Hemoglobin A1c (04/02/2025 10:15 AM EDT) Hemoglobin A1c 6.4(H) <6.0 % [facility] Comment:Hemoglobin A1C Refer ence Range Adults: 4.8 - 6.0 % Non diabetic: < 6.0 % Goal: < 7.0 %Additional Action Suggested: > 8.0 %Note: Hemoglobin A1c results are invalid for patients with abnormal amounts of HbF. Blood transfusions may impact the HbA1c concentration in the patient sample. Estimated Average Glucose 137 mg/dL [facility] Comment:eAG = Estimated ave rage glucose which is %A1C expressed asaverage glucose, using the formula of the S7P-JiragtxWlhmroy Glucose study (ADAG), Diabetes Care, Vol.31,#8,Mar. 2007 Blood Venous blood specimen / Unknown 04/02/2025 10:15 AM EDT 04/02/2025 11:28 AM EDT us Perfecto Pat MD LAB BLOOD ORDERABLES Final Resul t [facility] [address] [place] [phone] * (ABNORMAL) Comprehensive Metabolic Panel (04/02/2025 10:15 AM EDT) Sodium 141 135 - 145 mmol/L [facility] Potassium 4.1 3.3 - 5.1 mmol/L [facility] Chloride 102 96 - 108 mmol/L [facility] Carbon Dioxide 30(H) 22 - 29 mmol/L [facility] Anion Gap 13 12 - 20 [facility] Urea Nitrogen (BUN) 15 9 - 16 mg/dL [facility] Creatinine, Serum 1.19 0.5 - 1.4 mg/dL [facility] Estimated Glomerular Filt Rate 45 [facility] Comment:Chronic Kidney Disea se: Estimated GFR < 60 mL/min/1.24m4Yiobwi Kidney Disease: Estimated GFR < 15 mL/min/1.73m2 Glucose 163(H) 60 - 115 mg/dL [facility] Calcium 9.7 8.4 - 10.2 mg/dL [facility] Bilirubin, Total 0.3 0.0 - 1.0 mg/dL [facility] Aspartate Amino Transferase 21 5 - 31 U/L [facility] Alanine Aminotransferase 23 0 - 31 U/L [facility] Total Protein 6.7 6.5 - 8.0 g/dL [facility] Albumin Level 4.3 3.5 - 5.0 g/dL [facility] Alkaline Phosphatase 115 39 - 117 U/L [facility] 04/02/2025 10:1 5 AM EDT 04/02/2025 11:28 AM EDT us Ham Hay MD LAB BLOOD ORDERABLES Final Resul t [facility] [address] [place] [phone] * POCT Glucose (04/02/2025 9:54 AM EDT) Glucose Blood, POC 174 60 - 200 mg/dL QC Media Lot # [id number] Lot# Expiration Date Blood Capillary blood specimen / Unknown 04/02/2025 9:54 AM EDT us Ham Hay MD POINT OF CARE TEST ENTER/EDIT OR DERABLES Final Result * BI Mammogram Screening Tomosynthesis Bilateral (05/29/2024 11:38 AM EDT) Anatomical Region Laterality Modality Breast Bilateral Mammography 05/29/2024 11:3 8 AM EDT Narrative 06/09/2024 10:51 AM EDT [facility] [address] [place] [address] Mammography Report Signed Patient: Makenna Ortiz MR#: [id number] : 1955 Acct:[id number] Age/Sex: 69 / F ADM Date: 05/29/24 Loc: [facility] Attending Dr: Ham Hay MD Ordering Physician: Ham Hay MD Results: 1Negative Date of Service: 05/29/24 Follow Up: 1 Year From Orig ina Mammogram Procedure(s): MM tomosynthesis screening BI Accession Number(s): [id number] cc: Ham Hay MD EXAMINATION: MM SCREENING [...] 06/09/24 1048 DD/ 1138 TD/TT: 05/29/24 1153 Usps Letter Carrier: Procedure Note Donotuseinterpreter, Image - 06/09/2024 [facility] [address] [place], [place] [address] Mammography Report Signed Patient: Makenna OrtizMR#: [id number] : 7Acct:[id number] Age/Sex: 69 / FADM Date: 05/29/24 Loc: [facility] Attending Dr: Ham Hay MD Ordering Physician: Ham Hay MDResults: 1Negative Date of Service: 05/29/24Follow Up: 1 Year From [facility] ina Mammogram Procedure(s): MM tomosynthesis screening BI Accession Number(s): [id number] cc: Name,Ham HERRING EXAMINATION: MM SCREENING DIGITAL BREAST TOMOSYNTHESIS, BILATERAL [...] 06/09/24 1048 DD/ 1138 TD/TT: 05/29/24 1153 Usps Letter Carrier: Ham Hay MD [facility] BI PROCEDURES Edited Result - Final * Albumin, Random Urine W/Creatinine (01/18/2024 8:56 AM EDT) Creatinine, Urine 239.15 mg/dL [facility] Microalbumin Urine 18.0 mg/L [facility] Microalbum Creatinine Ratio Ur 7.5 <30 ug/mg cr [facility] Comment:Albumin/Creatinine R atio Reference Ranges: Normal: < 30 ug/mg creatinine Microalbuminuria: 30 - 300 ug/mg creatinineClinical Albuminuria: > 300 ug/mg creatinine Urine (Urine, Random) 01/18/2024 8:56 AM EDT 01/18/2024 11:08 AM EDT Ham Name LAB URINE ORDERABLES Final Resul t [facility] [address] [place] [address] [phone] * (ABNORMAL) Colonoscopy (05/09/2019) Colonoscopy Abnormal(A ) Normal [facility] External Provider HEALTH MAINTENANCE Final Result from Last 3 Months or Most Recently Relevant to Health Maintenance Insurance [facility] D-SNP) [place] [id number] Care Teams Pipe Jeeper Relationship Specialty Start Date End Date Name, MD Ham [address] [place] [address] PCP - General Family Medicine 01/28/16 Marya Echavarria, LaurieD [address] [place] [address] Pharmacist Internal Medicine 01/11/25
--- OUTSIDE RECORDS SUMMARY | 2025-05-25 16:18 | XMS_ITS | Encounter Summary ---
Author Organization [employer] Address [address] [facility] [address]t [place] [address] Care Team Providers Care Tax Revenue Officer Name Role Phone Name, Ham HERRING Primary Care Provider [phone] Marya Echavarria PharmD Unavailable [phone] Reason for Visit * Reason Onset Date Comments FYI 04/21/2024 Encounter Details Date Type Department Care Team ([facility] st Contact Info) Description 04/21/2024 Telephone [facility] [address] [place] [address] Name, MD Ham [address] [place] [address] FYI Social History Tobacco Use Types Packs/Day [...] - 04/21/2024 3:49 PM EDT Tc from [facility] calling to inform pcp pt has been admitted into hospital. If any questions you can contact [facility] at [phone]. documented in this encounter Plan of Treatment Upcoming Encounters Date Type Department Care Team (Late st Contact Info) Description 06/07/2025 10:00 AM EDT Office Visit [facility] [address] [place] [phone] Name, MD Ham [address] [place] [phone] 06/19/2025 9:30 AM EST Medication Management [facility] [address] [place] [phone] PuiaMarya, PharmD [address] [place] [address] 06/26/2025 1:00 PM EST Office Visit [facility] [address] [place] [phone] Sabrina Wilson, OD [address] [place] [address] 06/27/2025 11:15 AM EST Office Visit [facility] [address] [place] [address] Name, [place] [address] documented as of this encounter Visit Diagnoses Not on filedocumented in this encounter Additional Health Concerns Assessment Noted Time PHQ-9 Depression Total Score: 11 10/31/2 024 3:36 PM EDT documented as of this encounter Care Teams Tax Revenue Officer Relationship Specialty Start Date End Date Name, [place] [address] PCP - General Family Medicine 01/28/16 Marya Echavarria PharmD [address] [place] [phone] Pharmacist Internal Medicine 01/11/25 documented as of this encounter
--- OUTSIDE RECORDS SUMMARY | 2025-05-25 16:19 | XMS_ITS | Encounter Summary ---
Author Organization [employer] Address [address] [place] [address] 7t [place] [address] Care Team Providers Care Tool Room Attendant Name Role Phone Name, Ham HERRING Primary Care Provider [phone] Marya Echavarria PharmD Unavailable [phone] Reason for Visit * Reason Comments Med Refill Encounter Details Date Type Department Care Team ([facility] st Contact Info) Description 12/28/2024 Refill [facility] MEDICINE [address] [place] [address] Ofelia Blum MD [address] [place] [address] Intertrigo Social History Tobacco Use Types Packs/Day [...] Description 06/07/2025 10:00 AM EDT Office Visit [facility] MED[facility]INE [address] [place] [address] Ham Hay MD [address] [place] [address] 06/19/2025 9:30 AM EST Medication Management [facility] MEDICINE [address] [place] [address] PuiaMarya, PharmD [address] [place] [address] 06/26/2025 1:00 PM EST Office Visit [facility]OM[facility] [address] [place] [address] TarkaSabrina, OD [address] [place] [address] 06/27/2025 11:15 AM EST Office Visit [facility] MEDICINE [address] [place] [address] Ham Hay MD [address] [place] [address] documented as of this encounter Visit Diagnoses Diagnosis Intertrigo Other specified erythematous condition documented in this encounter Additional Health Concerns Assessment Noted Time PHQ-9 Depression Total Score: 24 024 11:40 AM EDT documented as of this encounter Care Teams Tool Room Attendant Relationship Specialty Start Date End Date Name, MD Ham [address] [place] [address] PCP - General Family Medicine 01/28/16 Marya Echavarria PharmD [address] [place] [address] Pharmacist Internal Medicine 01/11/25 documented as of this encounter
--- OUTSIDE RECORDS SUMMARY | 2025-05-25 16:19 | XMS_ITS | Encounter Summary ---
Author Organization [employer] Address [address] [place] [address] 7 [place] [address] Care Team Providers Care Commercial Loan Assistant Name Role Phone Name, Ham HERRING Primary Care Provider [phone] Marya Echavarria PharmD Unavailable [phone] Reason for Visit * Reason Onset Date Comments Pre Op 10/04/2024 Encounter Details Date Type Department Care Team (Late st Contact Info) Description 10/04/2024 Telephone [facility] MEDICINE [address] [place] [address] Name, MD Ham [address] [place] [address] Pre Op Social History Tobacco Use Types [...] 11/07/24 Surgical procedure being done: Cistoscopy with [place] distention of the Blader Type of anesthesia: general anesthesia Lab needed: Yes EKG: Yes Surgeon's name: Dr. Hoffman Facility name: [facility] Surgeon's office number: [phone] Surgeon's office fax number: [phone] Contact name (person you spoke with): Xiomara Last office note from surgeon requested: No Send Message to Yajaira Ramírez and Orestes Allan documented in this encounter Plan of Treatment Upcoming Encounters Date Type Department Care Team (Late st Contact Info) Description 06/07/2025 10:00 AM EDT Office Visit [facility] MEDICINE [address] [place] [address] Name, MD Ham [address] [place] [address] 06/19/2025 9:30 AM EST Medication Management [facility] MEDICINE [address] [place] [address] Marya Echavarria PharmD 230 [facility] [place] 06/26/2025 1:00 PM EST Office Visit [facility] OPTOMETRY [address] [place] [address] Sabrina Wilson, OD [address] [place], [place] 06/27/2025 11:15 AM EST Office Visit [facility] MEDICINE [address] [place] [address] Name, MD Ham [address] [place] [address] documented as of this encounter Visit Diagnoses Not on filedocumented in this encounter Additional Health Concerns Assessment Noted Time PHQ-9 Depression Total Score: 24 024 11:40 AM EDT documented as of this encounter Care Teams Commercial Loan Assistant Relationship Specialty Start Date End Date Name, MD Ham [address] [place], [place] [address] [address] PCP - General Family Medicine 01/28/16 Marya Echavarria PharmD [address] [place] [address] Pharmacist Internal Medicine 01/11/25 documented as of this encounter
--- OUTSIDE RECORDS SUMMARY | 2025-05-25 16:19 | XMS_ITS | Encounter Summary ---
Author Organization [employer] Address [address] [place] [address] 7t [place] [address] Care Team Providers Care Supervisor Riprap Placing Name Role Phone Name, Ham HERRING Primary Care Provider Marya Echavarria PharmD Unavailable [phone] Reason for Visit * Reason Comments Med Refill Encounter Details Date Type Department Care Team ([facility] st Contact Info) Description 08/25/2024 Refill [facility] MED[facility]INE 230 [place] [address] Name, MD Ham [address] [place] [address] Recurrent UTI Social History Tobacco Use Types [...] Description 06/07/2025 10:00 AM EDT Office Visit [facility] MEDICINE [address] [place] [address] NameHam MD [address] [place] [address] 06/19/2025 9:30 AM EST Medication Management [facility] MEDICINE [address] [place] [address] Marya Echavarria, PharmD [address] [place] [address] 06/26/2025 1:00 PM EST Office Visit [facility] OPTOMETRY [address] [place] [address] Sabrina Wilson, OD [address] [place] [address] 06/27/2025 11:15 AM EST Office Visit [facility] MEDICINE [address] [place] [address] NameHam MD [address] [place] [address] documented as of this encounter Visit Diagnoses Diagnosis Recurrent UTI Urinary tract infection, site not specified documented in this encounter Additional Health Concerns Assessment Noted Time PHQ-9 Depression Total Score: 24 024 11:40 AM EDT documented as of this encounter Care Teams Supervisor Riprap Placing Relationship Specialty Start Date End Date Name, MD Ham 230 [place] [address] PCP - General Family Medicine 01/28/16 Marya Echavarria, Tyler [address] [place] [address] Pharmacist Internal Medicine 01/11/25 documented as of this encounter
--- OUTSIDE RECORDS SUMMARY | 2025-05-25 16:19 | XMS_ITS | Encounter Summary ---
Author Organization [employer] Address [address] [place] [address] 7 [place] [address] Care Team Providers Care Dye House Worker Name Role Phone Name, Ham HERRING Primary Care Provider [phone] Marya Echavarria PharmD Unavailable Encounter Details Date Type Department Care Team (Late Contact Info) Description 07/14/2022 Abstract [facility] MEDICINE [address] [place] [address] Provider, MD Meghan Social History Tobacco Use [...] Upcoming Encounters Date Type Department Care Team ([facility] Contact Info) Description 06/07/2025 10:00 AM EDT Office Visit [facility] MEDICINE [address] [place] [address] NameHam MD 230 [place] [address] 06/19/2025 9:30 AM EST Medication Management [facility] MEDICINE 230 [place] [address] Marya Echavarria, PharmD 230 [place] [address] 06/26/2025 1:00 PM EST Office Visit [facility] OPTOMETRY [address] [place] [address] Sabrina Wilson, OD [address] [place] [address] 06/27/2025 11:15 AM EST Office Visit [facility] MEDICINE [address] [place] [address] Name, MD Ham 230 [place] [address] documented as of this encounter Visit Diagnoses Not on filedocumented in this encounter Care Teams Dye House Worker Relationship Specialty Start Date End Date Name, MD Ham [address] [place] [address] [phone] PCP - General Family Medicine 01/28/16 Marya Echavarria PharmD [address] [place] [address] [phone] Pharmacist Internal Medicine 01/11/25 documented as of this encounter
--- OUTSIDE RECORDS SUMMARY | 2025-05-25 16:19 | XMS_ITS | Encounter Summary ---
Author Organization [employer] Address [address] [place] [address] 7t [place] [address] Care Team Providers Care Weatherization Technician Name Role Phone Name, Ham HERRING Primary Care Provider [phone] Marya Echavarria PharmD Unavailable Reason for Visit * Reason Comments Med Refill Encounter Details Date Type Department Care Team (Late st Contact Info) Description 04/18/[address] [facility] MEDICINE [address] [place] [address] Ham Hay MD [address] [place] [phone] Social History Tobacco Use Types Packs/Day Years [...] Department Care Team (Late Contact Info) Description 06/07/2025 10:00 AM EDT Office Visit [facility] MEDICINE [address] [place] [address] Ham Hay MD [address] [place] [address] [phone] 06/19/2025 9:30 AM EST Medication Management [facility] MEDICINE 230 [place] [address] Marya Echavarria PharmD 230 [place] [address] 06/26/2025 1:00 PM EST Office Visit [facility] OPTOMETRY 267 [place] [address] Sabrina Wilson, OD 267 [place] [address] 06/27/2025 11:15 AM EST Office Visit [facility] MEDICINE [address] [place] [address] Name, MD Ham [address] [place] [address] documented as of this encounter Visit Diagnoses Not on filedocumented in this encounter Care Teams Weatherization Technician Relationship Specialty Start Date End Date Name, MD Ham [address] [place] [address] PCP - General Family Medicine 01/28/16 Marya Echavarria PharmD [address] [place] [address] Pharmacist Internal Medicine 01/11/25 documented as of this encounter
--- OUTSIDE RECORDS SUMMARY | 2025-05-25 16:19 | XMS_ITS | Encounter Summary ---
Author Organization [employer] Address [address] [place] [address] 7t [place] [address] Care Team Providers Care Sanitary Aide Name Role Phone Name, Ham HERRING Primary Care Provider [phone] aMrya Echavarria PharmD Unavailable Reason for Visit * Reason Comments Transition Of Care (Tcm) HDF Scheduled. Encounter Details Date Type Department Care Team ([facility] st Contact Info) Description 05/23/2025 Patient Outreach [facility] MED & PEDS [address] [place], [place] [phone] Name, MD Ham 230 [place] [address] Transition Of Care (Tcm) (HDF Scheduled. ) Social History Tobacco Use Types Packs/Day Years [...] as of this encounter Miscellaneous Notes * Significant Event - Lanie Quintero - 05/23/2025 10:19 AM EDT 05/23/25 1014 Hospital Dis[facility] Type of Visit Hospital Admission Date of Admission/Visit 05/10/25 Date of Discharge 05/23/25 Facility [facility] Diagnosis Bipolar Disorder Disposition Discharged Home Follow-Up Actions Follow-Up Needed Provider appointment Follow-Up Outcome Booked Appointment;Spoke to Caregiver Initial Contact Date 05/23/25 Received incoming call from the Direct Hospital Line from [facility]. Patient was admitted to this facility on 05/10/2025 for diagnosis of Bipolar Disorder. Patient will be discharged from the facility on 05/23/2025. Patient has been scheduled for an HDF appointment on 06/07/2025 at 10:00AM with Dr. Hay. Discharge Summary has been scanned into patient's chart. documented in this encounter Plan of Treatment Upcoming Encounters Date Type Department Care Team ([facility] st Contact Info) Description 06/07/2025 10:00 AM EDT Office Visit [facility] MEDICINE 230 [place] [address] Name, MD Ham 230 [facility] [place] [address] 06/19/2025 9:30 AM EST Medication Management [facility] MEDICINE [address] [place], [place] [address] [address] Marya Echavarria PharmD 230 [facility] [place] [address] 06/26/2025 1:00 PM EST Office Visit [facility] OPTOMETRY 267 [place] [address] Tarka, Sabrina, OD 267 [place] [address] 06/27/2025 11:15 AM EST Office Visit [facility] MEDICINE [address] [place], [place] [address] [address] Name, MD Ham Ricardo [facility] [place] [address] documented as of this encounter Visit Diagnoses Not on filedocumented in this encounter Additional Health Concerns Assessment Noted Time PHQ-9 Depression Total Score: 5 04/02/20 9:52 AM EDT documented as of this encounter Care Teams Sanitary Aide Relationship Specialty Start Date End Date Name, MD Ham [address] [place], [place] [address] [facility] [place] [address] PCP - General Family Medicine 01/28/16 Marya Echavarria, PharmLouie [address] [place], [place] [address] [address] Pharmacist Internal Medicine 01/11/25 documented as of this encounter
--- OUTSIDE RECORDS SUMMARY | 2025-05-25 16:19 | XMS_ITS | Encounter Summary ---
Author Organization [employer] Address [address] [place] [address] 7t [place] [address] Care Team Providers Care Operations Boardman Name Role Phone Name, Ham HERRING Primary Care Provider [phone] Marya Echavarria PharmD Unavailable Encounter Details Date Type Department Care Team (Late Contact Info) Description 01/19/[address] [address] NameHam MD [address] [place] [address] [phone] Social History Tobacco Use Types Packs/Day Years [...] Description 06/07/2025 10:00 AM EDT Office Visit [address] [phone] Ham Hay MD [address] [place] [address] [phone] 06/19/2025 9:30 AM EST Medication Management [address] [place] [address] Marya Echavarria PharmD 230 [place] [address] 06/26/2025 1:00 PM EST Office Visit [facility] OPTOMETRY 267 [place] [address] Sabrnia Wilson, OD 267 [place] [address] 06/27/2025 11:15 AM EST Office Visit [facility] MEDICINE [address] [place] [address] Name, MD Ham [address] [place] [address] documented as of this encounter Visit Diagnoses Not on filedocumented in this encounter Care Teams Operations Boardman Relationship Specialty Start Date End Date Name, MD Ham [address] [place] [address] PCP - General Family Medicine 01/28/16 Marya Echavarria PharmD [address] [place] [address] Pharmacist Internal Medicine 01/11/25 documented as of this encounter
--- OUTSIDE RECORDS SUMMARY | 2025-05-25 16:19 | XMS_ITS | Encounter Summary ---
Author Organization [employer] Address [address] [place] [address] 7t [place] [address] Care Team Providers Care Oiling Machine Operator Name Role Phone Name, Ham HERRING Primary Care Provider [phone] Marya Echavarria PharmD Unavailable [phone] Encounter Details Date Type Department Care Team ([facility] Contact Info) Description 10/27/2022 Orders Only [facility] MED & PEDS [address] [place], [place] [phone] Amber Everett LPN Social History Tobacco Use [...] Description 06/07/2025 10:00 AM EDT Office Visit [facility] MEDICINE [address] [place] [address] [phone] Name, MD Ham [address] [place] [address] 06/19/2025 9:30 AM EST Medication Management [facility] MEDICINE [address] [place] [address] [phone] Puia, Marya, PharmD 230 [place] [address] 06/26/2025 1:00 PM EST Office Visit [facility] OPTOMETRY [address] [place] [address] Steve Sabrina, OD 267 [place] [address] 06/27/2025 11:15 AM EST Office Visit [facility] MEDICINE 230 [place] [address] Name, MD Ham [address] [place] [address] documented as of this encounter Visit Diagnoses Not on filedocumented in this encounter Care Teams Oiling Machine Operator Relationship Specialty Start Date End Date Name, MD Ham [address] [place] [address] PCP - General Family Medicine 01/28/16 Marya Echavarria PharmD [address] [place] [address] Pharmacist Internal Medicine 01/11/25 documented as of this encounter
--- OUTSIDE RECORDS SUMMARY | 2025-05-25 16:19 | XMS_ITS | Encounter Summary ---
Author Organization [employer] Address [address] [facility] 7t [place] [address] Care Team Providers Care Fan Mail Clerk Name Role Phone Name, Ham HERRING Primary Care Provider [phone] Marya Echavarria PharmD Unavailable [phone] Reason for Visit * Reason Comments Med Refill Encounter Details Date Type Department Care Team ([facility] st Contact Info) Description 03/29/2025 Refill [facility] MEDICINE 230 [place] [address] Name, MD Ham 230 [place] [address] Social History Tobacco Use Types Packs/Day Years [...] Description 06/07/2025 10:00 AM EDT Office Visit [facility] MEDICINE [address] [place] [address] NameHam MD [address] [place] [address] 06/19/2025 9:30 AM EST Medication Management [facility] MEDICINE [address] [place] [address] Marya Echavarria, PharmD [address] [place] [address] 06/26/2025 1:00 PM EST Office Visit [facility] OPTOMETRY [address] [place] [address] TarkaNisaSabrnia, OD [address] [place] [address] 06/27/2025 11:15 AM EST Office Visit [facility] MEDICINE [address] [place] [address] Ham Hay MD [address] [place] [address] documented as of this encounter Visit Diagnoses Not on filedocumented in this encounter Additional Health Concerns Assessment Noted Time PHQ-9 Depression Total Score: 24 024 11:40 AM EDT documented as of this encounter Care Teams Fan Mail Clerk Relationship Specialty Start Date End Date Name, MD Ham [address] [place] [address] PCP - General Family Medicine 01/28/16 Marya Echavarria PharmD 230 [place] [address] Pharmacist Internal Medicine 01/11/25 documented as of this encounter
--- OUTSIDE RECORDS SUMMARY | 2025-05-25 16:19 | XMS_ITS | Encounter Summary ---
Author Organization [employer] Address [address] [place] [address] 7 [place] [address] Care Team Providers Care School Lunch Manager Name Role Phone Name, Ham HERRING Primary Care Provider [phone] Marya Echavarria PharmD Unavailable [phone] Reason for Visit * Reason Onset Date Comments Appointment Request 04/17/2025 Encounter Details Date Type Department Care Team ([facility] st Contact Info) Description 04/17/2025 Telephone [facility] MEDICINE [address] [place] [address] Name, MD Ham 230 [place] [address] Appointment Request Social History Tobacco Use Types [...] to reschedule CDTM apt Contact pt at [phone] (greek) documented in this encounter Plan of Treatment Upcoming Encounters Date Type Department Care Team ([facility] st Contact Info) Description 06/07/2025 10:00 AM EDT Office Visit [facility] MEDICINE [address] [place] [address] Name, MD Ham 230 [place] [address] 06/19/2025 9:30 AM EST Medication Management [facility] MEDICINE [address] [place] [address] Marya Echavarria, LaurieD 230 [place] [address] 06/26/2025 1:00 PM EST Office Visit [facility] OPTOMETRY [address] [place] [address] Sabrina Wilson, OD 267 [place] [address] 06/27/2025 11:15 AM EST Office Visit [facility] MEDICINE 230 [place] [address] Name, MD Ham [address] [place] [address] documented as of this encounter Visit Diagnoses Not on filedocumented in this encounter Additional Health Concerns Assessment Noted Time PHQ-9 Depression Total Score: 5 04/02/20 9:52 AM EDT documented as of this encounter Care Teams School Lunch Manager Relationship Specialty Start Date End Date Name, [place] [address] PCP - General Family Medicine 01/28/16 Marya Echavarria PharmD [address] [place] [address] Pharmacist Internal Medicine 01/11/25 documented as of this encounter
== END 2025-05-25 15:00 | disposition home or self-care (01) ==
LOC: HO.HUSH 13:52
PROVIDERS: PCP Internal Medicine Geriatric Medicine; Visit Provider Urology
DX: N39.0 Urinary tract infection, site not specified (principal)

== ENCOUNTER → 2025-05-25 13:52 | Outpatient (BNVA) | payer OTHER, SELFPAY | PROVIDERS: PCP Internal Medicine Geriatric Medicine; Visit Provider Urology | DX: N20.0 Calculus of kidney (principal); N39.0 Urinary tract infection, site not specified; R31.9 Hematuria, unspecified | CPT/HCPCS: 51798; 81003; 99212 ==

== ENCOUNTER 2025-06-07 13:44 | Outpatient (AMB) | payer OTHER, SELFPAY ==
--- OUTSIDE RECORDS SUMMARY | 2025-06-07 10:00 | XMS_ITS | Encounter Summary ---
Author Organization [employer] Address [address] [place] [address] 7 [place] [address] Care Team Providers Care Premises Technician Name Role Phone Name, Ham HERRING Primary Care Provider [phone] Marya Echavarria PharmD Unavailable Reason for Visit * Reason Comments HDF Encounter Details Date Type Department Care Team ([facility] [address] [facility] Contact Info) Description 06/07/2025 10:00 AM EDT Office Visit [facility] MEDICINE [address] [place] [address] Name, MD Ham [address] [place] [address] QT prolongation (Primary Dx); Bipolar disorder, in partial remission, most recent episode depressed (CMS/HCC) (HCC); Psychosis, unspecified psychosis type (CMS/HCC) (HCC); PTSD (post-traumatic stress disorder); Encounter for vaccination Social History Tobacco Use Types Packs/Day Years [...] the past 12 months, has t he [employer] gas, oil or water company threatened to [...] Sign Reading Time Taken Comments Blood Pressure 110/68 06/07/2025 9:59 AM EDT Pulse 116 06/07/2025 9:59 AM EDT Temperature 36.2 C (97.1 F) 06/07/2025 9:59 AM EDT Respiratory Rate 18 06/07/2025 9:59 AM EDT Oxygen Saturation 97% 06/07/2025 9:59 AM EDT Inhaled Oxygen Concentration - - Weight 60.2 kg (132 lb 12.8 oz) 06/07/2025 9:59 AM EDT Height 154.9 cm (5' 1 ) 06/07/2025 9:59 AM EDT Body Mass Index 25.09 06/07/2025 9:59 AM EDT documented in this encounter Functional Status * Over the last 2 weeks, how often have you been bothered by any of the following problems? Question Answer Date of Assessment Author Feeling nervous, anxious, or on edge 3 06/07/2025 10:14 AM EDT Brittany Mohan MA Not being able to stop or control worrying 3 06/07/2025 10:14 AM EDT Brittany Mohan MA Worrying too much about different things 3 06/07/2025 10:14 AM EDT Brittany Mohan MA Trouble relaxing 3 06/07/2025 10:14 AM EDT Yolette Mohan MA Being so restless that it is hard to sit still 3 06/07/2025 10:14 AM EDT Brittany Mohan MA Becoming easily annoyed or irritable 3 06/07/2025 10:14 AM EDT Brittany Mohan MA Feeling afraid as if something awful might happen 3 06/07/2025 10:14 AM EDT Yolette Villa MA MELISSA-7 Total Score 21 06/07/2025 10:14 AM EDT Yolette Mohan MA documented as of this encounter Progress Notes * Ham Hay MD - 06/07/2025 10:00 AM EDT Subjective Patient ID: Makenna Mcintosh is a 70 y.o. female who presents for HDF. Patient comes for a posthospitalization visit. She has personal history of bipolar disorder with depression, psychosis and PTSD. She was recently admitted at [facility] because of suicidal ideation and hallucinations. Her psychiatric medications were modified with symptomatic improvement. Shehad QTc prolongation in the hospital secondary to her psychiatric medication regimen. Currently shehas a counselor, she has a prescribing psychiatric provider, she does not have any suicidal ideation at the moment. Her hallucinations have resolved. She received the flu vaccination in the hospital and she agreed with COVID vaccination today. Summary of the recent hospitalization is written below: Hospital Course and Medication Reconciliation [facility] (05/10/25-05/23/25) Patient with PMH of bipolar disorder, PTSD admitted to [facility] due to AMS, hallucinations and SI. Quetiapine was discontinued due to recurrent Qtc prolongation. Started on lamotrigine for treatment of bipolar disorder. Prazosin was titrated to 7 mg to target nightmares. Started on Vraylar which was debbie ated well by patient. Received treatment with Bactrim for UTI. Symptoms improved and patient stablefor discharge home. No discharge medication list available however per progress note, fill history and patient report the following medication changes occurred during hospitalization: ?? Added ?? Vraylar 3 mg at bedtime ?? Lamotrigine 25 mg - 1 tab once daily for 2 weeks then 2 tabs once daily ?? Changed ?? Prazosin 6 mg at bedtime increased to 7 mg at bedtime ?? Discontinued: quetiapine, hydroxyzine, clonidine Review of Systems Constitutional: Negative for chills and fever. HENT: Negative for sore throat. Respiratory: Negative for cough, shortness of breath and wheezing. Cardiovascular: Negative for chest pain, palpitations and leg swelling. Gastrointestinal: Negative for abdominal pain. Psychiatric/Behavioral: Positive for sleep disturbance. Negative for self-injury and suicidal ideas. The patient is nervous/anxious. See HPI Objective Vitals: 06/07/25 0959 BP: 110/68 BP Location: Left arm Patient Position: Sitting BP Cuff Size: Adult Pulse: (!) 116 Resp: 18 Temp: 97.1 ??F (36.2 ??C) TempSrc: Temporal SpO2: 97% Weight: 132 lb 12.8 oz (60.2 kg) Height: 5' 1 (1.549 m) Physical Exam Constitutional: Appearance: Normal appearance. Cardiovascular: Rate and Rhythm: Regular rhythm. Tachycardia present. Heart sounds: No murmur heard. No gallop. Pulmonary: Effort: Pulmonary effort is normal. No respiratory distress. Breath sounds: Normal breath sounds. No wheezing. Musculoskeletal: Right lower leg: No edema. Left lower leg: No edema. Neurological: Mental Status: She is alert. I did 3 EKGs today. She she is in sinus tachycardia, heart rate in the low 100s. No ST segment elevation or depression. QTc prolongation with QTc of 465 471 and 475 ms. Assessment/Plan Diagnoses and all orders for this visit: QT prolongation Comments: I will discontinue her trazodone. Repeat EKG at her next visit in 2 weeks. Orders: - ECG 12 lead Bipolar disorder, in partial remission, most recent episode depressed (CMS/[facility]) ([facility]) Comments: I recommended to use her psychiatric medications as prescribed with the exception of the trazodone.Continue to follow-up with behavioral health providers including counselor and prescribing psychiatrist. I encouraged the patient to discuss the medication changes I recommended today with her [facility] health providers. Psychosis, unspecified psychosis type (CMS/HCC) ([facility]) PTSD (post-traumatic stress disorder) Encounter for vaccination - COVID-19 VACCINE [id number] (Comirnaty) 19 yrs + Future Appointments Date Time Provider Department Center 06/19/2025 9:30 AM Marya Echavarria PharmD MEDICINE [facility] 06/26/2025 1:00 PM Sabrina Wilson OD VISION [facility] 06/27/2025 11:15 AM Ham Hay MD [facility] documented in this encounter Plan of Treatment Upcoming Encounters Date Type Department Care Team (Late st Contact Info) Description 06/19/2025 9:30 AM EST Medication Management [facility] MEDICINE [address] [place] [address] Marya Echavarria PharmD [address] [place] [address] 06/26/2025 1:00 PM EST Office Visit [facility] OPTOMETRY [address] [place] [address] Sabrina Wilson OD [address] [place] [address] 06/27/2025 11:15 AM EST Office Visit [facility] MEDICINE [address] [place] [address] Ham Hay MD [address] [place] [address] documented as of this encounter Procedures Procedure Name Priority Date/Time Associated Diagnosis Comments ECG 12-LEAD Routine 06/07/2025 10:38 AM EDT QT prolongation documented in this encounter Results * ECG 12 lead (06/07/2025 10:38 AM EDT) Narrative Name, MD Ham - 06/07/2025 10:38 AM EDT I did 3 EKGs today. She she is sinus tachycardia, heart rate in the low 100s. No ST segment elevation or depression. QTc prolongation with QTc of 465 471 and 475 ms. Ham Name ECG ORDERABLES Edited Result - Final documented in this encounter Visit Diagnoses Diagnosis QT prolongation- Primary Bipolar disorder, in partial remission, most recent episode depressed (CMS/HCC) ([facility]) Psychosis, unspecified psychosis type (CMS/HCC) ([facility]) PTSD (post-traumatic stress disorder) Posttraumatic stress disorder Encounter for vaccination documented in this encounter Additional Health Concerns Assessment Noted Time PHQ-9 Depression Total Score: 5 04/02/20 25 9:52 AM EDT documented as of this encounter Care Teams Premises Technician Relationship Specialty Start Date End Date Name, MD Ham [address] [place] [address] PCP - General Family Medicine 01/28/16 Marya Echavarria PharmD [address] [place] [address] Pharmacist Internal Medicine 01/11/25 documented as of this encounter
--- NOTE | 2025-06-07 13:54 | A.OFFVIS_ITS ---
Vital Signs 06/07/25 13:58 Height 5 ft 2 in Weight 130 lb 8.218 oz BMI 23.9 BP 118/79 Blood Pressure Location Lt brachial Position Sitting Intake Visit Reasons: Follow up abd pain Intake Note: Makenna returns to in office follow up of abd pain. CC: Patient reports that she was admitted to the hospital due to anxiety and hallucinations. She states that she did not get her medications while admitted and she has been constipated ever since. She c/o N/V and GERD. Delinquency Counselor Required: Yes Accompanied by: Self / Same As Patient Allergies empagliflozin Adverse Reaction (Verified 06/07/25 14:06) Gastrointestinal Upset HPI HPI Follow up abd pain: Details: Assessment & Plan (1) Small bowel motility disorder: Code(s): K59.9 - Functional intestinal disorder, unspecified Category: Medical (2) GERD (gastroesophageal reflux disease): Comment: This resolved after we got her bowels moving and she does not need any acid suppression therapy aeb Code(s): K21.9 - Gastro-esophageal reflux disease without esophagitis Category: Medical (3) Chronic idiopathic constipation: Code(s): K59.04 - Chronic idiopathic constipation Category: Medical Plan (She continues on her bisacodyl, dicyclomine, famotidine, Proctosol cream for hemorrhoids, Linzess 290 micro g, Creon 24,000, omeprazole 40 mg a day, MiraLax, Zofran as needed, senna, and simethicone. Medications that could be confounding our efforts towards bowel motility include Effexor, Seroquel, clonidine, ami triptyline, and she is on methylphenidate and I am uncertain how this impacts her bowels. You would think it would stimulate them but apparently that has not the case. am referring her to [facility] for 2nd opinion since she has seen a physician here without resolution of her condition and I have worked with her for quite a long time and I just can not seem to get a handle on how to manage her overall burden. She does not see [facility] until 10/2024!!) She missed her appt at [facility] r/t transportation. She is uncertain if she can reschedule this w/o the same problem. Same sx, except nausea has greatly worsened, BUT reglan seems to have fallen off of her medication list. Will restart. She was using zofran, but this will not HELP to address the underlying motility problem and pain. I would not use misoprostol because of her nausea. May need to see if there are any other off label unusual tx. Uncertain what to do next, as we have tried all of the medication available, and she has transportation problems. ROV 3 mos. Orders: Referrals Gastroenterology Referral K59.04 - Chronic idiopathic constipation Medications: New misoprostol 200 mcg PO BID 60 tabs 6RF K59.04 - Chronic idiopathic constipation, K59.9 - Functional intestinal disorder, unspecified metoclopramide HCl (Reglan) 10 mg PO QIDACHS 120 tabs 12RF K59.9 - Functional intestinal disorder, unspecified Refilled dicyclomine 10 mg PO QID 120 caps 6RF simethicone 180 mg PO QID 120 caps 6RF prucalopride 2 mg PO DAILY 30 tabs 6RF K58.1 - Irritable bowel syndrome with constipation bisacodyl 10 mg (2 x 5 mg) PO BEDTIME 60 tabs 6RF rabeprazole 20 mg PO BID 60 tabs 6RF K21.9 - Gastro-esophageal reflux disease without esophagitis, R11.2 - Nausea with vomiting, unspecified Discontinued tenapanor (Ibsrela) must administer immediately before first meal of day/breakfast and dinner Discontinued Reason: Doctor's Order 50 mg PO BID 60 tabs 6RF K59.04 - Chronic idiopathic constipation TODAY'S VISIT [facility] Medical History Bipolar disorder PTSD (post-traumatic stress disorder) Depression Anxiety Fibromyalgia Schizophrenia Anemia Ileus Tubular adenoma of colon History of pancreatitis Irritable bowel syndrome with constipation Diverticulitis GERD (gastroesophageal reflux disease) Chronic idiopathic constipation Surgical History History of esophagogastroduodenoscopy (EGD) Hx of colonoscopy Family History Father No problems noted. Mother Diabetes Melanoma Family history of hypertension Family history of diabetes mellitus Social History Household Members: Spouse Housing: Unknown / Unable to assess Are you a primary home health care coordinator to a significant other at home: No Do you presently have visiting nurse or other home services: No Alcohol intake: never Patient Tobacco Use Status: Never used Tobacco Second Hand Smoke Exposure: No service: No Current occupational status: disabled Sexual orientation: Straight/Heterosexual Review of Systems Const Denies fatigue, Denies fever(s), Denies night sweats, Denies poor appetite and Denies weight loss Eyes Details: glasses Reports requires corrective lenses ENT Reports Normal hearing present, Denies dental pain, Denies dysphagia, Denies hearing loss, Denies mouth pain, Denies odynophagia, Denies throat swelling, Denies tongue swelling and Reports other (Dentition adequate) GI Details: Denies abdominal pain, Denies melena, Denies bloating, Denies hematochezia, Denies constipation, Denies GI cramping, Denies dysphagia, Denies excessive flatus, Denies early satiety, Denies heartburn, Denies diarrhea, Denies nausea, Denies odynophagia, Denies vomiting and Denies hematemesis Skin/Breast Denies pruritus, Denies lesions, Denies rash and Denies jaundice Neuro Reports Normal hearing present and Denies Abnormal speech present Endo Denies fatigue Aller/Immun Denies throat swelling and Denies tongue swelling Physical Exam Vital Signs: Last Vital Signs BP 118/79 06/07/25 13:58 BMI result Body Mass Index 23.9 Const General: cooperative, no acute distress, well developed and well groomed Nutritional Appearance: well nourished, obese and overweight Orientation/consciousness: oriented to person, oriented to place and oriented to time Limitations: No language barrier, ambulation with cane, ambulation with walker and wheelchair HEENT Head: Yes normocephalic and Yes atraumatic Eyes General: appearance normal, both eyes and all related structures Pupils: Equal, round and reactive pupils present Neck Neck: Yes normal visual inspection and Yes no lymphadenopathy Thyroid: Thyroid normal Resp Effort & Inspection: normal respiratory effort and able to speak in complete sentences Auscultation: clear to auscultation bilaterally Cardio Rate: regular rate Rhythm: regular rhythm Heart sounds: Normal, physiologic split S2 sound present Peripheral pulses: radial pulses present and posterior tibial pulses present GI Inspection: No distended and No Abdominal panniculus present Palpation (GI): Soft to palpation, nontender, no guarding, not rigid, No hepatosplenomegaly present and Hepatosplenomegaly present Percussion: Yes normal to percussion Auscultation: normal bowel sounds Rectal Exam - Female: deferred Skin General skin exam: no rashes or lesions noted, turgor normal, skin not dry, no jaundice, No spider nevi and no striae Rashes: no rashes Nails: normal Neuro General: oriented to person, oriented to place and oriented to time Cranial nerves: Yes Equal, round and reactive pupils present and Yes Normal hearing present Speech: No Abnormal speech present Extrem General: Yes normal to inspection, No clubbing, No cyanosis and No edema Psych Thought process: Normal thought process present and not confabulating Thought content: Normal thought content present Insight: Good insight present (Psych) Judgement: Good judgement present (Psych) Assessment & Plan Assessment & Plan (1) Chronic idiopathic constipation: Code(s): K59.04 - Chronic idiopathic constipation Category: Medical (2) Small bowel motility disorder: Code(s): K59.9 - Functional intestinal disorder, unspecified Category: Medical (3) Ileus: Code(s): K56.7 - Ileus, unspecified Category: Medical (4) Nausea and vomiting: Code(s): R11.2 - Nausea with vomiting, unspecified Category: Surgical (5) GERD (gastroesophageal reflux disease): Comment: This resolved after we got her bowels moving and she does not need any acid suppression therapy aeb Code(s): K21.9 - Gastro-esophageal reflux disease without esophagitis Category: Medical Plan Her last GI regimen consisted of misoprostol, dicyclomine, Linzess, famotidine, Motegrity, rabeprazole, senna, and simethicone. - The patient is a 70-year-old female presenting with medication management in the context of previously encountered gastrointestinal complications including constipation and a history of hallucinations. - Hospitalization led to the suspension of Seroquel due to an observed QT interval prolongation, although the specific cardiology implications have yet to be fully assessed. - Nausea and constipation have been persistent issues, with the patient noting insufficient bowel movements despite previous use of specific medications like Lindsess that were stopped during the hospitalization. - The patient suffered from a urinary tract infection recently, managed with Bactrim. - The abrupt changes and lack of clear communication regarding her medications during and after hospitalization have led to confusion and insomnia. - Stop taking the dicyclomine as it may worsen constipation. - Refill your Lindsess prescription to help with bowel movements. - Wait to restart the metoclopramide until after seeing a security messenger. - Make an appointment with a security messenger to evaluate your heart and medications. - Expect a follow-up visit in six weeks to review your condition and care plan. - Contact immediately if you experience any new or worsening symptoms. Medications: Refilled prucalopride 2 mg PO DAILY 30 tabs 6RF K58.1 - Irritable bowel syndrome with constipation rabeprazole 20 mg PO BID 60 tabs 6RF K21.9 - Gastro-esophageal reflux disease without esophagitis, R11.2 - Nausea with vomiting, unspecified Linzess (linaclotide) 290 mcg PO DAILY 30 caps 1RF NS famotidine 40 mg PO BEDTIME 90 tabs 0RF bisacodyl 10 mg (2 x 5 mg) PO BEDTIME 60 tabs 6RF simethicone 180 mg PO QID 120 caps 6RF On Hold dicyclomine Hold Comment: Doctor's Order 10 mg PO QID 120 caps 6RF Coding Level of Care Code Est Pt Level 4 (11721) Diagnoses Chronic idiopathic constipation K59.04 Small bowel motility disorder K59.9 Ileus K56.7 Nausea and vomiting R11.2 GERD (gastroesophageal reflux disease) K21.9 Time Spent (min) 36
[2025-06-07 13:58] VITALS: BP 118/79; BMI 23.9
--- OUTSIDE RECORDS SUMMARY | 2025-06-07 16:45 | XMS_ITS | Encounter Summary ---
Author Organization [employer] Address [address] [place] [address] 7 [place] [address] Care Team Providers Care Band Splitter Name Role Phone Name, Ham HERRING Primary Care Provider [phone] Marya Echavarria PharmD Unavailable [phone] Encounter Details Date Type Department Care Team (Late st Contact Info) Description 07/14/2022 Abstract [facility] MEDICINE [address] [place] [id number] Provider, MD Meghan Social History Tobacco Use [...] Description 06/19/2025 9:30 AM EST Medication Management [facility] MEDICINE [address] [place] [id number] Marya Echavarria, PharmD [address] [place] [address] 06/26/2025 1:00 PM EST Office Visit [facility] OPTOMETRY [address] [place] [address] Sabrina Wilson, OD [address] [place] [address] 06/27/2025 11:15 AM EST Office Visit [facility] MEDICINE [address] [place] [address] Name, MD Ham [address] [place] [address] documented as of this encounter Visit Diagnoses Not on filedocumented in this encounter Care Teams Band Splitter Relationship Specialty Start Date End Date Name, MD Ham [address] [place] [id number] PCP - General Family Medicine 01/28/16 Marya Echavarria PharmD [address] [place] [id number] Pharmacist Internal Medicine 01/11/25 documented as of this encounter
--- OUTSIDE RECORDS SUMMARY | 2025-06-07 16:45 | XMS_ITS | Encounter Summary ---
Author Organization [employer] Address [address] [place] [address] [address] [place] [address] Care Team Providers Care Campaign Advisor Name Role Phone Name, Ham HERRING Primary Care Provider [phone] Marya Echavarria PharmD Unavailable [phone] Reason for Visit * Reason Onset Date Comments Pre Op 10/04/2024 Encounter Details Date Type Department Care Team (Late st Contact Info) Description 10/04/2024 Telephone [facility] MEDICINE [address] [place] [address] Name, MD Ham [address] [place] [address] Pre Op Social History Tobacco Use Types [...] 11/07/24 Surgical procedure being done: Cistoscopy with [place] distention of the [place]ader Type of anesthesia: general anesthesia Lab needed: Yes EKG: Yes Surgeon's name: Dr. [place] Facility name: [facility] Surgeon's office number: [phone] Surgeon's office fax number: [phone] Contact name (person you spoke with): Xiomara Last office note from surgeon requested: No Send Message to Yajaira Ramírez and Orestes Allna documented in this encounter Plan of Treatment Upcoming Encounters Date Type Department Care Team (Late st Contact Info) Description 06/19/2025 9:30 AM EST Medication Management [facility] MEDICINE [address] [place] [address] Marya Echavarria, PharmD [address] [place] [address] 06/26/2025 1:00 PM EST Office Visit [facility] OPTOMETRY [address] [place] [address] Sabrina Wilson, OD [address] [place] [address] 06/27/2025 11:15 AM EST Office Visit [facility] MEDICINE [address] [place] [address] Name, MD Ham [address] [place] [address] documented as of this encounter Visit Diagnoses Not on filedocumented in this encounter Additional Health Concerns Assessment Noted Time PHQ-9 Depression Total Score: 24 024 11:40 AM EDT documented as of this encounter Care Teams Campaign Advisor Relationship Specialty Start Date End Date Name, MD Ham [address] [place] [address] PCP - General Family Medicine 01/28/16 Marya Echavarria PharmD [address] [place] [id number] Pharmacist Internal Medicine 01/11/25 documented as of this encounter
--- OUTSIDE RECORDS SUMMARY | 2025-06-07 16:45 | XMS_ITS | Encounter Summary ---
Author Organization [employer] Address [address] [facility] 7t [place] [address] Care Team Providers Care Die Engraving Supervisor Name Role Phone Name, Ham EHRRING Primary Care Provider [phone] Marya Echavarria PharmD Unavailable [phone] Encounter Details Date Type Department Care Team (Latest Contact Info) Description 06/07/2025 Travel Social History Tobacco Use Types Packs/Day Years [...] AM EDT documented as of this encounter Functional Status * Over the [...] MA Trouble relaxing 3 06/07/2025 10:14 AM CROWT Yolette Mohan MA Being so restless that it is hard to sit still 3 06/07/2025 10:14 AM CROWT Brittany Mohan MA Becoming easily annoyed or irritable 3 06/07/2025 10:14 AM CROWT Brittany Mohan MA Feeling afraid as if something awful might happen 3 06/07/2025 10:14 AM EDT Yolette Villa MA MELISSA-7 Total Score 21 06/07/2025 10:14 AM CROWT Yolette Mohan MA documented as of this encounter Plan of Treatment Upcoming Encounters Date Type Department Care Team (Late st Contact Info) Description 06/19/2025 9:30 AM EST Medication Management [facility] MEDICINE [address] [place] [address] Marya Echavarria, PharmD [address] [place] [address] 06/26/2025 1:00 PM EST Office Visit [facility] OPTOMETRY [address] [place] [address] Sabrina Wilson, OD [address] [place] [address] 06/27/2025 11:15 AM EST Office Visit [facility] MEDICINE [address] [place] [address] Name, MD Ham [address] [place] [address] documented as of this encounter Visit Diagnoses Not on filedocumented in this encounter Additional Health Concerns Assessment Noted Time PHQ-9 Depression Total Score: 5 04/02/20 9:52 AM EDT documented as of this encounter Care Teams Die Engraving Supervisor Relationship Specialty Start Date End Date Name, MD Ham [address] [place] [address] PCP - General Family Medicine 01/28/16 Marya Echavarria PharmD [address] [place] [address] Pharmacist Internal Medicine 01/11/25 documented as of this encounter
--- OUTSIDE RECORDS SUMMARY | 2025-06-07 16:45 | XMS_ITS | Encounter Summary ---
Author Organization [employer] Address [address] [place] [address] 7t [place] [address] Care Team Providers Care Tube Cutter Name Role Phone Name, Ham HERRING Primary Care Provider [phone] Marya Echavarria PharmD Unavailable [phone] Encounter Details Date Type Department Care Team (Late Contact Info) Description 10/27/2022 Orders Only [facility] MED [facility] PEDS [address] [place], [place] [phone] Amber Everett LPN Social History Tobacco Use [...] Description 06/19/2025 9:30 AM EST Medication Management [facility] MEDICINE [address] [place], [place] [phone] Marya Echavarria, PharmD [address] [place] [address] 06/26/2025 1:00 PM EST Office Visit [facility] OPTOMETRY [address] [place], [place] [phone] Sabrina Wilson, OD [address] [place] [address] 06/27/2025 11:15 AM EST Office Visit [facility] MEDICINE [address] [place] [address] Name, MD Ham [address] [place] [address] documented as of this encounter Visit Diagnoses Not on filedocumented in this encounter Care Teams Tube Cutter Relationship Specialty Start Date End Date Name, MD Ham [address] [place] [address] PCP - General Family Medicine 01/28/16 Marya Echavarria PharmD [address] [place] [address] Pharmacist Internal Medicine 01/11/25 documented as of this encounter
--- OUTSIDE RECORDS SUMMARY | 2025-06-07 16:45 | XMS_ITS | Clinical Summary ---
Author Organization [facility] Address [address] [place] [address] Phone Care Team Providers Care Personal Care Aide Name Role Phone Physician, No Pcp Primary [...] [facility] Emergency [address] [place] [phone] Tee Campbell MD Weakness (Primary Dx); [...] of 2 - Risk 2-dose series) 1976 RSV Immunization Adult Patients (1 - Risk 50-74 years 1-dose series) 2007 Zoster Vaccines (1 of 2) 2007 Hepatitis B Vaccines (1 of 3 - Risk 3-dose series) 2017 Depression Screening 08/09/2024 COVID-19 Vaccine [...] EDT from Last 3 Months Results * ECG 12 lead (05/08/2025 1:07 PM EDT) Only the most recent of2 resultswithin the time period is included. Pathologist [facility] Ventricular Rate ECG 87 BPM GEMUSE Atrial Rate 87 BPM GEMUSE P-R Interval 222 ms GEMUSE QRS Duration 76 ms GEMUSE Q-T Interval 332 ms GEMUSE QTc 399 ms GEMUSE P Wave [place] 65 degrees GEMUSE R [place] 92 degrees GEMUSE T [place] 114 degrees GEMUSE ECG Interpretation Sinus rhythm with 1st degree AV block Rightward axis Nonspecific ST and T wave abnormality Abnormal ECG When compared with ECG of 08-MAY-2025 10:43, (Unconfirmed) Sinus rhythm has replaced Atrial fibrillation Confirmed by Nicole Guthrie ([id number]) on 05/11/2025 10:23:09 AM GEMUSE 05/08/2025 1:07 PM EDT 05/11/2025 10:23 AM EDT us Mili CHAPMAN ECG ORDERABLES Final Result GEMUSE * Lactate, with Reflex (05/08/2025 11:38 AM EDT) LACTIC ACID 2.0 0.5 - 2.2 mmol/L LAB BLOOD GAS METHOD 05/08/2025 11:58 AM EDT [facility] Blood Venous blood specimen / Unknown Venipuncture / Unknown 05/08/2025 11:38 AM EDT 05/08/2025 11:50 AM EDT Tee Campbell MD LAB BLOOD ORDERABLES Final Result Performing Organization Address [facility]/ZIP Co de Phone Number [facility] [address] [place] [address], * Troponin I High Sensitivity (05/08/2025 11:38 AM EDT) [facility] High Sensitivity Troponin I 4 0 - 14 ng/L LAB CHEMISTRY METHOD 05/08/2025 12:29 PM EDT [facility] Blood Venous blood specimen / Unknown Venipuncture / Unknown 05/08/2025 11:38 AM EDT 05/08/2025 11:50 AM EDT Narrative [facility] - 05/08/2025 12:29 PM EDT [...] method is an immunoenzymatic assay manufactured by [employer] and performed on the [employer] DxI 800. Tee Campbell MD LAB BLOOD ORDERABLES Final Result Performing Organization Address [facility] Co de Phone Number [facility] [address] [place] [address], [place] [phone] * (ABNORMAL) CBC auto differential (05/08/2025 11:38 AM EDT) [facility] WBC 6.4 4.0 - 10.5 K/[facility] LAB HEMETOLOGY METHOD 05/08/2025 12:02 PM EDT [facility] RBC 4.58 4.20 - 5.40 M/[facility] LAB HEMETOLOGY METHOD 05/08[facility]2025 [facility] Hemoglobin 11.7(L) 12.5 - 16.0 g/dL LAB HEMETOLOGY METHOD 05/08/2025 12:02 PM EDT [facility] Hematocrit 35.4(L) 37.0 - 47.0 % LAB HEMETOLOGY METHOD 05/08/2025 12:02 PM EDT [facility] MCV 77.3(L) 78.0 - 100.0 FL LAB HEMETOLOGY METHOD 05/08/2025 12:02 PM EDT [facility] MCH 25.6 25.0 - 33.0 pcg LAB HEMETOLOGY METHOD 05/08/2025 12:02 PM EDT [facility] MCHC 33.0 32.0 - 36.0 g/dL LAB HEMETOLOGY METHOD 05/08/2025 12:02 PM EDT [facility] RDW 13.4 12.1 - 16.2 % LAB HEMETOLOGY METHOD 05/08/2025 12:02 PM EDT [facility] Platelets 233 150 - 450 K/mcL LAB HEMETOLOGY METHOD 05/08/2025 12:02 PM EDT [facility] MPV 8.8 7.4 - 11.4 FL LAB HEMETOLOGY METHOD 05/08/2025 12:02 PM EDT [facility] Neutrophils Relative 69.8 44.0 - 74.0 % LAB HEMETOLOGY METHOD 05/08/2025 12:02 PM EDT [facility] Lymphocytes Relative 24.3 20.0 - 48.0 % LAB HEMETOLOGY METHOD 05/08/2025 12:02 PM EDT [facility] Monocytes Relative 5.3 2.0 - 12.0 % LAB HEMETOLOGY METHOD 05/08/2025 12:02 PM EDT [facility] Eosinophils Relative 0.4 0.0 - 6.0 % LAB HEMETOLOGY METHOD 05/08/2025 12:02 PM EDT [facility] Basophils Relative 0.2 0.0 - 2.0 % LAB HEMETOLOGY METHOD 05/08/2025 12:02 PM EDT [facility] Neutrophils Absolute 4.50 1.80 - 7.80 K/mcL LAB HEMETOLOGY METHOD 05/08/2025 12:02 PM EDT [facility] Lymphocytes Absolute 1.60 1.00 - 3.20 K/mcL LAB HEMETOLOGY METHOD 05/08/2025 12:02 PM EDT [facility] Monocytes Absolute 0.30 0.00 - 0.80 K/mcL LAB HEMETOLOGY METHOD 05/08/2025 12:02 PM EDT [facility] Eosinophils Absolute 0.00 0.00 - 0.50 K/mcL LAB HEMETOLOGY METHOD 05/08/2025 12:02 PM EDT [facility] Basophils Absolute 0.00 0.00 - 0.20 K/mcL LAB HEMETOLOGY METHOD 05/08/2025 12:02 PM EDT [facility] Blood Venous blood specimen / Unknown Venipuncture / Unknown 05/08/2025 11:38 AM EDT 05/08/2025 11:50 AM EDT Tee Campbell MD LAB BLOOD ORDERABLES Final Result [facility] [address] [place] [address], * Phosphorus (05/08/2025 11:38 AM EDT) Phosphorus 3.1 2.5 - 4.5 mg/dL LAB CHEMISTRY METHOD 05/08/2025 12:27 PM EDT [facility] Blood Venous blood specimen / Unknown Venipuncture / Unknown 05/08/2025 11:38 AM EDT 05/08/2025 11:50 AM EDT Tee Campbell MD LAB BLOOD ORDERABLES Final Result [facility] [address] [place] [address], [place] [phone] * Magnesium (05/08/2025 11:38 AM EDT) Magnesium 2.1 1.7 - 2.8 mg/dL LAB CHEMISTRY METHOD 05/08/2025 12:27 PM EDT [facility] Blood Venous blood specimen / Unknown Venipuncture / Unknown 05/08/2025 11:38 AM EDT 05/08/2025 11:50 AM EDT Tee Campbell MD LAB BLOOD ORDERABLES Final Result Performing Organization Address [facility] Co de Phone Number [facility] [address] [place] [address], [place] [phone] * Ethanol (05/08/2025 11:38 AM EDT) Pathologist [facility] Ethanol Level <10 0 - 10 mg/dL LAB CHEMISTRY METHOD 05/08/2025 12:27 PM EDT [facility] Blood Venous blood specimen / Unknown Venipuncture / Unknown 05/08/2025 11:38 AM EDT 05/08/2025 11:50 AM EDT Narrative [facility] - 05/08/2025 12:27 PM EDT Medical Purpose Results of this test are to be used for medical purposes only Tee Campbell MD LAB BLOOD ORDERABLES Final Result Performing Organization Address City/[facility]/ZIP Co de Phone Number [facility] [address] [place] [address], [place] [phone] * (ABNORMAL) Comprehensive Metabolic Panel (CMP) (05/08/2025 11:38 AM EDT) Sodium 144 135 - 145 mmol/L LAB CHEMISTRY METHOD 05/08/2025 12:27 PM [facility] Potassium 3.3(L) 3.5 - 5.1 mmol/L LAB CHEMISTRY METHOD 05/08/2025 12:27 PM [facility] Chloride 108(H) 98 - 107 mmol/L LAB CHEMISTRY METHOD 05/08/2025 12:27 PM [facility] CO2 24 24 - 32 mmol/L LAB CHEMISTRY METHOD 05/08/2025 12:27 PM [facility] Anion Gap 12 5 - 14 LAB CHEMISTRY METHOD 05/08/2025 12:27 PM [facility] Glucose 112 70 - 199 mg/dL LAB CHEMISTRY METHOD 05/08/2025 12:27 PM [facility] BUN 15 7 - 17 mg/dL LAB CHEMISTRY METHOD 05/08/2025 12:27 PM [facility] Creatinine 1.10(H) 0.50 - 1.00 mg/dL LAB CHEMISTRY METHOD 05/08/2025 12:27 PM [facility] eGFR 55(L) >=60 mL/min/1. 73m2 LAB CHEMISTRY METHOD 05/08/2025 12:27 PM [facility] Comment:Calculation based on the Chronic Kidney Disease Epidemiology Collaboration (CKD-EPI) equation refit without adjustment for race. BUN/Creatinine Ratio 13.6 12.0 - 20.0 LAB CHEMISTRY METHOD 05/08/2025 12:27 PM [facility] Calcium 8.2(L) 8.4 - 10.2 mg/dL LAB CHEMISTRY METHOD 05/08/2025 12:27 PM [facility] AST (SGOT) 18 5 - 40 unit/L LAB CHEMISTRY METHOD 05/08/2025 12:27 PM [facility] ALT (SGPT) 16 7 - 52 unit/L LAB CHEMISTRY METHOD 05/08/2025 12:27 PM EDT [facility] Alkaline Phosphatase 94 34 - 104 unit/L LAB CHEMISTRY METHOD 05/08/2025 12:27 PM EDT [facility] Total Protein 6.4 6.4 - 8.5 g/dL LAB CHEMISTRY METHOD 05/08/2025 12:27 PM EDT [facility] Albumin 4.1 3.5 - 5.0 g/dL LAB CHEMISTRY METHOD 05/08/2025 12:27 PM EDT [facility] Total Bilirubin 0.4 0.3 - 1.0 mg/dL LAB CHEMISTRY METHOD 05/08/2025 12:27 PM EDT [facility] Blood Venous blood specimen / Unknown Venipuncture / Unknown 05/08/2025 11:38 AM EDT 05/08/2025 11:50 AM EDT Tee Campbell MD LAB BLOOD ORDERABLES Final Result [facility] [address] [place] [address], [place] [phone] * POCT Glucose, blood (05/08/2025 10:21 AM EDT) [facility] Glucose POCT 161 70 - 199 mg/dL 05/08/2025 10:22 AM EDT [facility] Comment: Fasting Reference Range: 70-99 mg/dL Non-Fasting Reference Range: 70-199 mg/dL Blood Capillary blood specimen / Unknown 05/08/2025 10:21 AM EDT 05/08/2025 10:23 AM EDT us Tee Campbell MD LAB POINT OF CARE T EST DOCKED DEVICE UNSOLICITED RESULTS Final Result [facility] [address] [place] [address], [place] [phone] from Last 3 Months Insurance MEDICAID - [place] [employer] MEDICARE Member Subscriber Plan / Payer (Ef fective 2023-Present) Name:MALLORY GUERRERO Relation to Subscriber:Self Name:Mallory Guerrero Payer ID:[id number] Group ID:[id number] Type:Not on file Address: [address] [place] [address] Care Teams Personal Care Aide Relationship Specialty Start Date End Date Physician, No Pcp PCP - General 05/08/25
--- OUTSIDE RECORDS SUMMARY | 2025-06-07 16:45 | XMS_ITS | Encounter Summary ---
Author Organization [employer] Address [address] [facility] 7t [place] [address] Care Team Providers Care Dobie Man Name Role Phone Name, Ham HERRING Primary Care Provider [phone] Marya Echavarria PharmD Unavailable [phone] Reason for Visit * Reason Comments Med Refill Encounter Details Date Type Department Care Team ([facility] st Contact Info) Description 03/29/2025 Refill [facility] MEDICINE [address] [place] [address] Name, MD Ham [address] [place] [address] Social History Tobacco Use Types Packs/Day Years [...] Medication Management [facility] MEDICINE [address] [place] [address] Marya Echavarria, PharmD [address] [place] [address] 06/26/2025 1:00 PM EST Office Visit [facility] OPTOMETRY [address] [place] [address] Sabrina Wilson, OD [address] [place] [address] 06/27/2025 11:15 AM EST Office Visit [facility] MEDICINE [address] [place] [address] Ham Hay MD [address] [place] [address] documented as of this encounter Visit Diagnoses Not on filedocumented in this encounter Additional Health Concerns Assessment Noted Time PHQ-9 Depression Total Score: 24 024 11:40 AM EDT documented as of this encounter Care Teams Dobie Man Relationship Specialty Start Date End Date Ham Hay MD [address] [place] [address] PCP - General Family Medicine 01/28/16 Marya Echavarria, LaurieD [address] [place] [address] [place] [address] Pharmacist Internal Medicine 01/11/25 documented as of this encounter
--- OUTSIDE RECORDS SUMMARY | 2025-06-07 16:45 | XMS_ITS | Encounter Summary ---
Author Organization [employer] Address [address] [place] [address] 7t [place] [address] Care Team Providers Care Mainframe Systems Engineer Name Role Phone Name, Ham HERRING Primary Care Provider [phone] Marya Echavarria PharmD Unavailable [phone] Reason for Visit * Reason Comments Med Refill Encounter Details Date Type Department Care Team ([facility] st Contact Info) Description 05/30/2024 Refill [facility] MEDICINE [address] [place] [address] Name, MD Ham [address] [place] [address] Social History Tobacco Use Types Packs/Day Years [...] Medication Management [facility] MEDICINE [address] [place] [phone] Marya Echavarria PharmD [address] [place] [address] 06/26/2025 1:00 PM EST Office Visit [facility] OPTOMETRY [address] [place] [address] Sabrina Wilson, OD [address] [place] [address] 06/27/2025 11:15 AM EST Office Visit [facility] MEDICINE [address] [place] [address] NameHam MD [address] [place] [address] documented as of this encounter Visit Diagnoses Not on filedocumented in this encounter Additional Health Concerns Assessment Noted Time PHQ-9 Depression Total Score: 24 024 11:40 AM EDT documented as of this encounter Care Teams Mainframe Systems Engineer Relationship Specialty Start Date End Date Ham Hay MD [address] [place] [address] PCP - General Family Medicine 01/28/16 Marya Echavarria PharmD [address] [place] [address] Pharmacist Internal Medicine 01/11/25 documented as of this encounter
--- OUTSIDE RECORDS SUMMARY | 2025-06-07 16:45 | XMS_ITS | Encounter Summary ---
Author Organization [employer] Address [address] [place] [address] 7 h Floor [place] [id number] Care Team Providers Care Heading Pinner Name Role Phone Name, Ham HERRING Primary Care Provider Marya Echavarria PharmD Unavailable Reason for Visit * Reason Comments Med Refill Encounter Details Date Type Department Care Team (Late st Contact Info) Description 04/18/2023 Refill [facility] MEDICINE [address] [place] [address] Name, MD Ham [address] [place] [address] Social History Tobacco Use Types Packs/Day Years [...] Description 06/19/2025 9:30 AM EST Medication Management [facility] MEDICINE [address] [place] [address] Puia Marya, PharmD [address] [place] [address] 06/26/2025 1:00 PM EST Office Visit [facility] OPTOMETRY [address] [place] [address] SonuraynaSabrina, OD [address] [place] [address] 06/27/2025 11:15 AM EST Office Visit [facility] MEDICINE [address] [place] [address] Name, MD Ham [address] [place] [address] documented as of this encounter Visit Diagnoses Not on filedocumented in this encounter Care Teams Heading Pinner Relationship Specialty Start Date End Date Name, MD Ham [address] [place] [address] PCP - General Family Medicine 01/28/16 Marya Echavarria PharmD [address] [place] [address] Pharmacist Internal Medicine 01/11/25 documented as of this encounter
--- OUTSIDE RECORDS SUMMARY | 2025-06-07 16:45 | XMS_ITS | Clinical Summary ---
Author Organization [employer] Address [address] [place] [address] [address] [place] [address] Care Team Providers Care Electronic Parts Designer Name Role Phone Name, Ham HERRING Primary Care Provider [phone] Marya Echavarria PharmD Unavailable [phone] Allergies Active Allergy Reactions Criticality Noted Date Comments Empagliflozin Low 09/11/2020 UTI Medications * This document contains information received from the source organization and may not represent a complete record from that organization. ALPRAZolam (Xanax) 1 MG tablet Take 1 mg by mouth if needed in the morning, at noon, in the evening, and at bedtime for anxiety. 08/28/19 23 Active dicyclomine (Bentyl) 10 MG capsule 08/30/19 23 Active Linzess 290 MCG capsule 08/10/19 23 Active venlafaxine XR (Effexor XR) 150 MG 24 hr capsule Take 150 mg by mouth in the morning. 06/23/20 22 Active Simethicone Ultra Strength 180 MG capsule TAKE 1 CAPSULE BY MOUTH FOUR TIMES DAILY AFTER MEALS 07/26/20 22 Active Creon 08682-44068 units capsule Take 1 capsule by mouth 4 times daily. 07/31/20 22 Active Gentle Laxative 5 MG EC tablet [...] both eyes at bedtime. 03/31/20 24 Active zolpidem (Ambien) 10 MG tablet Take 10 mg by mouth at bedtime. 12/14/19 25 Active methylphenidat e ER (Metadate ER) 20 MG CR tablet Take 1 tablet by mouth 2 times daily. 12/13/19 25 Active Combigan 0.2-0.5 % ophthalmic solution instill 1 drop in both eyes twice daily 12/07/19 25 Active Acetaminophen Extra Strength 500 MG tablet Take 2 tablets by mouth every 6 (six) hours if needed for pain. 12/13/19 25 Active Tirzepatide (Mounjaro) 5 MG/0.5ML solution auto-injectorI ndications:Typ e 2 diabetes mellitus without complication, without long-term current use of insulin ([facility]) Inject 5 mg under the skin 1 (one) time per week. Do not start before February 07, 2025. 2 mL 02/08/20 25 Active Blood Glucose Monitoring Suppl (FreeStyle Precision Issac System) w/Device kitIndications :Type 2 diabetes mellitus without complication, without long-term current use of insulin ([facility]) 1 each Once per day. 1 kit 01/12/20 25 Active glucose 4 g chewable tabletIndicati ons:Type 2 diabetes mellitus without complication, without long-term current use of insulin ([facility]),Hypoglyc emia Chew 4 tablets (16 g) if needed for low blood sugar. <70 mg/dL. Repeat treatment as needed. 40 tablet 5 01/12/20 25 026 Active glucose blood (FreeStyle Precision Issac Test) test stripIndicatio ns:Type 2 diabetes mellitus without complication, without long-term current use of insulin ([facility]) Use to test blood sugar up once daily, as directed 50 each 11 01/12/20 25 Active FreeStyle lancetsIndicat ions:Type 2 diabetes mellitus without complication, without long-term current use of insulin ([facility]) 1 each by Other route Once per day. Use to check BG once daily as directed 100 each 3 01/12/20 25 026 Active Premarin 0.625 MG/GM cream INSERT 1G INTO THE VAGINA DAILY FOR 2 WEEKS AND THEN 1 GIVE TWICE A WEEK 30 g 2 01/30/20 25 Active polyethylene glycol, PEG, 3350 (Glycolax) 17 GM/SCOOP powder MIX AND DRINK 17G BY MOUTH EVERY DAY 02/02/20 Active metFORMIN XR (Glucophage-XR ) 500 MG 24 hr tabletIndicati ons:Type 2 diabetes mellitus without complication, without long-term current use of insulin (HCC) Take 1 tablet (500 mg) by mouth with evening meal. Do not crush, chew, or split. 90 tablet 1 02/21/20 Active Vraylar 3 MG capsule Take 1 capsule by mouth at bedtime. 05/23/20 Active clotrimazole-b etamethasone (Lotrisone) cream Apply topically 2 times daily. 05/23/20 Active lamoTRIgine (LaMICtal) 25 MG tablet Take 1 tablet by mouth once daily for 2 weeks then 2 tablets daily 05/23/20 Active prazosin (Minipress) 1 MG capsule Take 2 capsules by mouth at bedtime. 05/23/20 Active prazosin (Minipress) 5 MG capsule Take 1 capsule by mouth at bedtime. 05/24/20 Active risperiDONE (RisperDAL) 0.5 MG tablet Take 1 tablet by mouth 3 times daily. 05/13/20 Active cephalexin (Keflex) 250 MG capsule Take 1 capsule by mouth Once per day. For recurrent UTI 05/25/20 Active prazosin (Minipress) 2 MG capsule TAKE 3 CAPSULES BY MOUTH AT BEDTIME 06/29/20 025 Discontinued(Me d list cleanup (will not trigger notification to Pharmacy)) venlafaxine XR (Effexor XR) 75 MG 24 hr capsule TAKE 1 CAPSULE BY MOUTH DAILY ALONG WITH 150 MG CAPSULE FOR TOTAL OF 225MG DAILY 12/11/19 025 Discontinued(Me d list cleanup (will not trigger notification to Pharmacy)) QUEtiapine XR (SEROquel XR) 400 MG 24 hr tablet Take 800 mg by mouth at bedtime. 12/23/19 025 Discontinued(Me d list cleanup (will not trigger notification to Pharmacy)) QUEtiapine (SEROquel) 50 MG tablet Take 1 tablet by mouth Once per day. 10/09/19 025 Discontinued(Me d list cleanup (will not trigger notification to Pharmacy)) methylphenidat e (Ritalin) 10 MG tablet Take 10 mg by mouth in the morning. 12/13/19 025 Discontinued(Me d list cleanup (will not trigger notification to Pharmacy)) hydrOXYzine pamoate (Vistaril) 50 MG capsule TAKE 1 TO 2 CAPSULES BY MOUTH AT BEDTIME NEEDED FOR SLEEP 09/13/19 025 Discontinued(Me d list cleanup (will not trigger notification to Pharmacy)) famotidine (Pepcid) 40 MG tablet Take 40 mg by mouth at bedtime. 12/13/19 025 Discontinued(Me d list cleanup (will not trigger notification to Pharmacy)) cloNIDine (Catapres) 0.1 MG tablet Take 1 tablet by mouth every 6 (six) hours. 12/12/19 Discontinued(Me d list cleanup (will not trigger notification to Pharmacy)) ondansetron (Zofran) 4 MG tablet Take 1 tablet (4 mg) by mouth every 8 (eight) hours if needed for nausea or vomiting. 60 tablet 1 01/12/20 Discontinued(Me d list cleanup (will not trigger notification to Pharmacy)) Ibsrela 50 MG tablet TAKE 1 TABLET BY MOUTH TWICE DAILY BEFORE BREAKFAST AND DINNER 02/07/20 Discontinued(Me d list cleanup (will not trigger notification to Pharmacy)) traZODone (Desyrel) 100 MG tablet Take 1-2 tablets by mouth at bedtime. 05/28/20 Discontinued(Si de effects) Active Problems Problem Noted Date Diagnosed Date Bipolar disorder, in partial remission, most recent episode manic ([facility]) 06/07/2025 Psychosis ([facility]) 06/07/2025 PTSD (post-traumatic stress disorder) 06/07/2025 QT prolongation 06/07/2025 Intertrigo 10/20/2024 Assessment & Plan (10/20/2024 12:14 [...] organization. Date Type Department Care Team Description 06/07/2025 10:00 AM EDT Office Visit [facility] [address] [place] [address] Name, MD Ham QT prolongation (Primary Dx); Bipolar disorder, in partial remission, most recent episode depressed (CMS/HCC) (HCC); Psychosis, unspecified psychosis type (CMS/HCC) (HCC); PTSD (post-traumatic stress disorder); Encounter for vaccination 06/07/2025 Travel 06/06/2025 Telephone [facility] [address] [place] [address] Ham Hay MD Chart Prep 05/28/2025 Telephone [place] [address] Ham Hay MD Med Refill 05/23/2025 Patient Outreach [facility] [address] [place] [address] Ham Hay MD Transition Of Care (Tcm) (HDF Scheduled. ) 05/17/2025 Telephone [place] [address] Ham Hay MD 05/16/2025 Telephone [facility] [place] [address] Ham Hay MD 05/09/2025 Orders Only GENERIC EXTERNAL DATA DEPARTMENT Provider, Generic External Data 04/17/2025 Telephone [place] [address] Ham Hay MD Appointment Request 04/13/2025 Telephone [facility] [place] [address] Ham Hay MD Med Refill 04/06/2025 Results Follow-Up [place] [address] Ham Hay MD Comprehensive Metabolic Panel, Lipid Panel with Reflex to Direct LDL 04/02/2025 10:00 AM EDT Office Visit [place] [address] Ham Hay MD Type 2 diabetes mellitus without complication, without long-term current use of insulin ([facility]) (Primary Dx) 04/02/2025 Orders Only [place] [address] Ham Hay MD 04/02/2025 Travel 03/29/2025 Refill [facility] [place] [address] Ham Hay MD 03/21/2025 Telephone [facility] [place] [address] Marya Echavarria, PharmD 03/13/2025 Telephone [facility] [place] [address] Name, MD Ham Med Refill from Last 3 Months Immunizations Immunization Administration Dates Next Due Influenza High-dose Quadriva lent Preservative Free 06/30/2023,05/13/2022 Influenza injectable quadriv alent IIV4 with preservative 05/17/2019,04/27/2017,05/04/2016,05/07 Influenza injectable quadriv alent preservative free 07/02/2021,05/01/2020,10/24/2018 Influenza, IIV3, injectable 05/30/2014, 8 Influenza, Split (incl. alfredo fied surface antigen) 05/09/2013,05/25/2012 Influenza, seasonal, injecta ble, preservative free 04/21/2024 Pfizer Covid-19 Vaccine 12+ 06/07/2025 Pneumococcal Conjugate PCV 20 06/30/2023 Pneumococcal Polysaccharide [...] Mass Index 25.09 06/07/2025 9:59 AM EDT Plan of Treatment Upcoming Encounters Date Type Department Care Team (Late st Contact Info) Description 06/19/2025 9:30 AM EST Medication Management [facility] [address] [place] [phone] Marya Echavarria, PharmD [address] [place] [address] 06/26/2025 1:00 PM EST Office Visit [facility] [address] [place] [address] Sabrina Wilson, OD [address] [place] [address] 06/27/2025 11:15 AM EST Office Visit [facility] [address] [place] [address] Name, MD Ham [address] [place] [address] Health Maintenance Due Date Last Done Comments [...] Urine Protein Screening 01/17/2025 01/18/2024, 01/19/2023, 11/11/2022 Mammogram 05/29/2025 05/29/2024, 05/10, 05/28/2023, Additional history exists Diabetes: Hemoglobin A1C 10/03/2025 025, 01/11/2025, 10/20/2024, Additional history exists SDOH Screening 10/20/2025 10/20/2024 COVID-19 Vaccine ( season) 2025 06/07/2025, 06/03/2022, 07/02/2021, Additional history exists Alcohol/Substance Use Screening 04/02/2026 04/02/2025 Depression Screening 04/02/2026 04/02/2025, 08/31/19 Diabetes: Foot Exam 04/02/2026 04/02/2025, 04/02/2025, 04/02/2025, Additional history exists Lipid Panel 04/02/2026 04/02/2025, 01/07, 01/19/2023, Additional history exists Colonoscopy 05/09/2026 05/09/2019 Colorectal Cancer Screening 05/09/2026 Tobacco Screening 06/07/2026 06/07/2025 DTaP/Tdap/Td Vaccines (3 - Td or Tdap) [...] Routine 06/07/2025 10:38 AM EDT QT prolongation DRUG MONITOR, PANEL 1, SCREEN, URINE Routine [...] complication, without long-term current use of insulin ([facility]) BI MAMMOGRAM SCREENING TOMOSYNTHESIS BILATERAL Routine 05/29/2024 11:38 AM EDT ALBUMIN, RANDOM URINE W/CREATININE Routine 01/18/2024 8:56 AM EDT Type 2 diabetes mellitus without complication, without long-term current use of insulin ([facility]) HM COLONOSCOPY Routine 05/09/2019 from Last 3 Months or Most Recently Relevant to Health Maintenance Results * ECG 12 lead (06/07/2025 10:38 AM EDT) Narrative Name, MD Ham - 06/07/2025 10:38 AM EDT I did 3 EKGs today. She she is sinus tachycardia, heart rate in the low 100s. No ST segment elevation or depression. QTc prolongation with QTc of 465 471 and 475 ms. us Ham Name ECG ORDERABLES Edited Result - Final * (ABNORMAL) Drug Monitoring, Panel 1, Screen, Urine (05/09/2025 9:37 AM EDT) Opiate Screen Urine Not Detected Not Detect [facility] Comment:Opiate cut-off is 30 0 ng/mL.Positive results are unconfirmed and should not be used fornon-medical purposes. Barbiturates, Urine Not Detected Not Detect [facility] Comment:Barbiturate cut-off is 200 ng/mL.Positive results are unconfirmed and should not be used fornon-medical purposes. Phencyclidine Screen Urine Not Detected Not Detect [facility] Comment:Phencyclidine cut-of f is 25 ng/mL.Positive results are unconfirmed and should not be used fornon-medical purposes. Amphetamine Screen Urine Not Detected Not Detect [facility] Comment:Amphetamine cut-off is 1000 ng/mL.Positive results are unconfirmed and should not be used fornon-medical purposes. Benzodiazepines Screen Urine POSITIVE(A) Not Detect [facility] Comment:Benzodiazepine cut-o ff is 200 ng/mL.Positive results are unconfirmed and should not be used fornon-medical purposes. Cocaine Screen Urine Not Detected Not Detect [facility] Comment:Cocaine cut-off is 3 00 ng/mL.Positive results are unconfirmed and should not be used fornon-medical purposes. Cannabinoid Screen Urine Not Detected Not Detect [facility] Comment:Cannabinoid cut-off is 50 ng/mL.Positive results are unconfirmed and should not be used fornon-medical purposes. Methadone Screen, Urine Not Detected Not Detect ng/mL [facility] Comment:Methadone cut-off is 300 ng/mL.Positive results are unconfirmed and should not be used fornon-medical purposes. FENTANYL URINE Not Detected Not Detect [facility] Comment:Fentanyl cut-off is 1 ng/mL.Positive results are unconfirmed and should not be used fornon-medical purposes. Oxycodone Urine Screen Not Detected Not Detect ng/mL [facility] Comment:Oxycodone cut-off is 100 ng/mL.Positive results are unconfirmed and should not be used fornon-medical purposes. Buprenorphine Screen Not Detected Not Detect ng/mL [facility] Comment:Buprenorphine cut-of f is 5 ng/mL.Positive results are unconfirmed and should not be used fornon-medical purposes. 05/09/2025 9:37 AM EDT 05/09/2025 9:40 AM EDT us Generic External Data Provider LAB URINE ORDERAB LES Final Result [facility] [address] [place] [phone] * (ABNORMAL) Urinalysis Complete (05/09/2025 9:37 AM EDT) Color Urine Yellow [facility] Appearance Urine Clear [facility] PH 7.0 5.0 - 9.0 [facility] Glucose Urine UA 100(A) Negative mg/dL [facility] Urine Blood Negative Negative [facility] Specific Gallant - Urine 1.015 1.005 - 1.025 [facility] Urine Protein Trace Neg-Trace mg/dL [facility] Urine Ketones >=160 Negative mg/dL [facility] Nitrite Urine Negative Negative [facility] Leukocyte Esterase Urine Trace(A) Negative [facility] RBC Urine 0-2 0 - 2 /HPF [facility] Urine WBC 0-5 0 - 5 /HPF [facility] Urine Squamous Epithelial Cell 0-2 0 - 2 /HPF [facility] Urine Bacteria None Seen None Seen [facility] Hyaline Casts, Urine 0-2 0 - 2 /LPF [facility] 05/09/2025 9:37 AM EDT 05/09/2025 9:40 AM EDT us Generic External Data Provider LAB URINE ORDERAB LES Final Result [facility] [address] [place] [phone] * Lipid Panel with Reflex to Direct LDL (04/02/2025 10:15 AM EDT) Triglycerides 145 <150 mg/dL [facility] Comment:Desirable Triglyceri de: less than 150 mg/dLBorderline High Triglyceride 150-199 mg/dLHigh Triglyceride: 200-499 mg/dLVery High Triglyceride: greater than or equal to 5OO mg/dL Cholesterol 167 <200 mg/dL [facility] Comment:Desirable Cholestero l: less than 200 mg/dLBorderline High Cholesterol: 200-239 mg/dLHigh Cholesterol: greater than 239 mg/dL LDL Cholesterol Calculated 81 <100 mg/dL [facility] Comment:Desirable LDL: less than 100 mg/dLNear Optimal/Above Optimal LDL: 110- 129 mg/dLBorderline High LDL: 130-159 mg/dLHigh LDL: 160-189 mg/dLVery High LDL: greater than or equal to 190 mg/dL HDL Cholesterol 57 >40 mg/dL [facility] Comment:Desirable HDL: great er than 40 mg/dL Note: This HDL assay may give artificially low results in patients with liver disease. 04/02/2025 10:1 5 AM EDT 04/02/2025 11:25 AM EDT us Ham Hay MD LAB BLOOD ORDERABLES Final Resul t Performing Organization Address [facility] Co de Phone Number [facility] [address] [place] [phone] * Magnesium (04/02/2025 10:15 AM EDT) Magnesium 2.3 1.6 - 2.6 mg/dL [facility] Blood Venous blood specimen / Unknown 04/02/2025 10:15 AM EDT 04/02/2025 11:28 AM EDT us Perfecto Pat MD LAB BLOOD ORDERABLES Final Resul t Performing Organization Address [facility] de Phone Number [facility] [address] [place] [phone] * (ABNORMAL) Hemoglobin A1c (04/02/2025 10:15 AM EDT) Hemoglobin A1c 6.4(H) <6.0 % [facility] Comment:Hemoglobin A1C Refer ence Range Adults: 4.8 - 6.0 % Non diabetic: < 6.0 % Goal: < 7.0 %Additional Action Suggested: > 8.0 %Note: Hemoglobin A1c results are invalid for patients with abnormal amounts of HbF. Blood transfusions may impact the HbA1c concentration in the patient sample. Estimated Average Glucose 137 mg/dL [facility] Comment:eAG = Estimated ave rage glucose which is %A1C expressed asaverage glucose, using the formula of the A2D-QnkajbmHhcjfnh Glucose study (ADAG), Diabetes Care, Vol.31,#8,Mar. 2007 Blood Venous blood specimen / Unknown 04/02/2025 10:15 AM EDT 04/02/2025 11:28 AM EDT us Perfecto Pat MD LAB BLOOD ORDERABLES Final Resul t Performing Organization Address [facility] Co de Phone Number [facility] [address] [place] [phone] * (ABNORMAL) Comprehensive Metabolic Panel (04/02/2025 10:15 AM EDT) Sodium 141 135 - 145 mmol/L [facility] Potassium 4.1 3.3 - 5.1 mmol/L [facility] Chloride 102 96 - 108 mmol/L [facility] Carbon Dioxide 30(H) 22 - 29 mmol/L [facility] Anion Gap 13 12 - 20 [facility] Urea Nitrogen (BUN) 15 9 - 16 mg/dL [facility] Creatinine, Serum 1.19 0.5 - 1.4 mg/dL [facility] Estimated Glomerular Filt Rate 45 [facility] Comment:Chronic Kidney Disea se: Estimated GFR < 60 mL/min/[id number] Kidney Disease: Estimated GFR < 15 mL/min/1.73m2 Glucose 163(H) 60 - 115 mg/dL [facility] Calcium 9.7 8.4 - 10.2 mg/dL [facility] Bilirubin, Total 0.3 0.0 - 1.0 mg/dL [facility] Aspartate Amino Transferase 21 5 - 31 U/L [facility] Alanine Aminotransferase 23 0 - 31 U/L [facility] Total Protein 6.7 6.5 - 8.0 g/dL [facility] Albumin Level 4.3 3.5 - 5.0 g/dL [facility] Alkaline Phosphatase 115 39 - 117 U/L [facility] 04/02/2025 10:1 5 AM EDT 04/02/2025 11:28 AM EDT us Ham Name MD LAB BLOOD ORDERABLES Final Resul t [facility] [address] [place] [phone] * POCT Glucose (04/02/2025 9:54 AM EDT) Glucose Blood, POC 174 60 - 200 mg/dL QC Media Lot # [id number] Lot# Expiration Date [id number] Blood Capillary blood specimen / Unknown 04/02/2025 9:54 AM EDT Ham Hay MD POINT OF CARE TEST ENTER/EDIT OR DERABLES Final Result * BI Mammogram Screening Tomosynthesis Bilateral (05/29/2024 11:38 AM EDT) Anatomical Region Laterality Modality Breast Bilateral Mammography 05/29/2024 11:3 8 AM EDT Narrative 06/09/2024 10:51 AM EDT [facility] [address] [place], [place] [address] Mammography Report Signed Patient: Makenna Ortiz MR#: [id number] : 1955 Acct:[id number] Age/Sex: 69 / F ADM Date: 05/29/24 Loc: HO.MAMMO Attending Dr: Ham Hay MD Ordering Physician: aHm Hay MD Results: 1Negative Date of Service: 05/29/24 Follow Up: 1 Year From [facility] ina Mammogram Procedure(s): MM tomosynthesis screening BI Accession Number(s): [id number] cc: Ham Hay MD EXAMINATION: MM SCREENING [...] 06/09/24 1048 DD/ 1138 TD/TT: 05/29/24 1153 Jet Operator: Procedure Note Donjaninainterpreter, Image - 06/09/2024 [facility] [address] [place] [address] Mammography Report Signed Patient: Makenna OrtizMR#: [id number] : 1955cct:[id number] Age/Sex: 69 / FADM Date: 05/29/24 Loc: HO.MAMMO Attending Dr: Ham Hay MD Ordering Physician: Ham Hayesults: 1Negative Date of Service: 05/29/24Follow Up: 1 Year From Orig inal Mammogram Procedure(s): MM tomosynthesis screening BI Accession Number(s): [id number] cc: Ham Hay MD EXAMINATION: MM SCREENING [...] 06/09/24 1048 DD/ 1138 TD/TT: 05/29/24 1153 Jet Operator: Ham Hay MD IMG BI PROCEDURES Edited Result - Final * Albumin, Random Urine W/Creatinine (01/18/2024 8:56 AM EDT) Creatinine, Urine 239.15 mg/dL [facility] Microalbumin Urine 18.0 mg/L [facility] Microalbum Creatinine Ratio Ur 7.5 <30 ug/mg cr [facility] Comment:Albumin/Creatinine R atio Reference Ranges: Normal: < 30 ug/mg creatinine Microalbuminuria: 30 - 300 ug/mg creatinineClinical Albuminuria: > 300 ug/mg creatinine Urine (Urine, Random) 01/18/2024 8:56 AM EDT 01/18/2024 11:08 AM EDT Ham Hay MD LAB URINE ORDERABLES Final Resul t Performing Organization Address City/State/[facility] Co de Phone Number [facility] [address] [place] [phone] * (ABNORMAL) Colonoscopy (05/09/2019) Colonoscopy Abnormal(A ) Normal [facility] External Provider HEALTH MAINTENANCE Final Result from Last 3 Months or Most Recently Relevant to Health Maintenance Insurance [facility] [employer] (O D-SNP) [place] [id number] Care Teams Electronic Parts Designer Relationship Specialty Start Date End Date Name, MD Ham [address] [place] [address] PCP - General Family Medicine 01/28/16 Marya Echavarria PharmD [address] [place] [address] Pharmacist Internal Medicine 01/11/25
--- OUTSIDE RECORDS SUMMARY | 2025-06-07 16:45 | XMS_ITS | Patient Health Record ---
Author Organization [facility] Address [address] [place] [address] Care Team Providers Care Refrigerator Crater Name Role Phone Dragan Tejeda Jr Reason For Referral No Information Plan Of Treatment No Information
--- OUTSIDE RECORDS SUMMARY | 2025-06-07 16:45 | XMS_ITS | Encounter Summary ---
Author Organization [employer] Address [address] [place] [address] 7t [place] [address] Care Team Providers Care Kaiawhina Kura Kaupapa Maori Name Role Phone Name, Ham HERRING Primary Care Provider [phone] Marya Echavarria PharmD Unavailable [phone] Reason for Visit * Reason Comments Med Refill Encounter Details Date Type Department Care Team ([facility] st Contact Info) Description 12/28/2024 Refill [facility] MEDICINE 230 [place] [address] Ofelia Blum MD 230 [place] [address] Intertrigo Social History Tobacco Use Types Packs/Day [...] Upcoming Encounters Date Type Department Care Team ([facility] st Contact Info) Description 06/19/2025 9:30 AM EST Medication Management [facility] MEDICINE [address] [place] [address] Marya Echavarria, PharmD [address] [place] [address] 06/26/2025 1:00 PM EST Office Visit [facility] OPTOMETRY [address] [place] [address] TarkaSabrina, OD [address] [place] [address] 06/27/2025 11:15 AM EST Office Visit [facility] MEDICINE [address] [place] [address] Ham Hay MD [address] [place] [address] documented as of this encounter Visit Diagnoses Diagnosis Intertrigo Other specified erythematous condition documented in this encounter Additional Health Concerns Assessment Noted Time PHQ-9 Depression Total Score: 24 024 11:40 AM EDT documented as of this encounter Care Teams Kaiawhina Kura [place] Maori Relationship Specialty Start Date End Date Ham Hay MD [address] [place] [address] PCP - General Family Medicine 01/28/16 Marya Echavarria PharmD [address] [place] [address] Pharmacist Internal Medicine 01/11/25 documented as of this encounter
--- OUTSIDE RECORDS SUMMARY | 2025-06-07 16:45 | XMS_ITS | Encounter Summary ---
Author Organization [employer] Address [address] [facility] 7t [place] [address] Care Team Providers Care Glassie Name Role Phone Name, Ham HERRING Primary Care Provider [phone] Marya Echavarria PharmD Unavailable [phone] Reason for Visit * Reason Onset Date Comments FYI 04/21/2024 Encounter Details Date Type Department Care Team ([facility] st Contact Info) Description 04/21/2024 Telephone [facility] MEDICINE 230 [place] [address] Name, MD Ham 230 [place] [address] FYI Social History Tobacco Use Types Packs/Day [...] - 04/21/2024 3:49 PM EDT Tc from [facility] calling to inform pcp pt has been admitted into hospital. If any questions you can contact [facility] at [phone]. documented in this encounter Plan of Treatment Upcoming Encounters Date Type Department Care Team (Late st Contact Info) Description 06/19/2025 9:30 AM EST Medication Management [facility] MEDICINE [address] [place] [address] Marya Echavarria, PharmD 230 [place] [address] 06/26/2025 1:00 PM EST Office Visit [facility] OPTOMETRY [address] [place] [address] Sabrina Wilson, OD 267 [place] [address] 06/27/2025 11:15 AM EST Office Visit [facility] MEDICINE [address] [place] [address] Name, MD Ham [address] [place] [address] documented as of this encounter Visit Diagnoses Not on filedocumented in this encounter Additional Health Concerns Assessment Noted Time PHQ-9 Depression Total Score: 11 10/31/ 024 3:36 PM EDT documented as of this encounter Care Teams Glassie Relationship Specialty Start Date End Date Name, MD Ham 230 [place] [address] PCP - General Family Medicine 01/28/16 Marya Echavarria PharmD 230 [place] [address] Pharmacist Internal Medicine 01/11/25 documented as of this encounter
--- OUTSIDE RECORDS SUMMARY | 2025-06-07 16:45 | XMS_ITS | Encounter Summary ---
Author Organization [employer] Address [address] [place] [address] 7t [place] [address] Care Team Providers Care Parking Enforcement Technician Name Role Phone Name, Ham HERRING Primary Care Provider [phone] Marya Echavarria PharmD Unavailable [phone] Encounter Details Date Type Department Care Team (Late st Contact Info) Description 01/19/[address] [facility] MEDICINE 230 [place] [address] Name, MD Ham 230 [place] [address] Social History Tobacco Use Types Packs/Day Years [...] Description 06/19/2025 9:30 AM EST Medication Management [facility] 230 [place] [address] Marya Echavarria, PharmD 230 [place] [address] 06/26/2025 1:00 PM EST Office Visit [facility] OPTOMETRY 267 [place], [place] [phone] Sabrina Wilson, OD 267 [place] [address] 06/27/2025 11:15 AM EST Office Visit [facility] MEDICINE 230 [place] [address] Name, MD Ham [address] [place] [address] documented as of this encounter Visit Diagnoses Not on filedocumented in this encounter Care Teams Parking Enforcement Technician Relationship Specialty Start Date End Date Name, MD Ham [address] [place] [address] PCP - General Family Medicine 01/28/16 Marya Echavarria PharmD [address] [place] [address] [phone] Pharmacist Internal Medicine 01/11/25 documented as of this encounter
--- OUTSIDE RECORDS SUMMARY | 2025-06-07 16:45 | XMS_ITS | Encounter Summary ---
Author Organization [employer] Address [address] [place] [address] 7t [place] [address] Care Team Providers Care Cartridge Loader Name Role Phone Name, Ham HERRING Primary Care Provider [phone] Marya Echavarria PharmD Unavailable [phone] Reason for Visit * Reason Onset Date Comments Med Refill 05/28/2025 Encounter Details Date Type Department Care Team ([facility] st Contact Info) Description 05/28/2025 Telephone [facility] MEDICINE 230 [place] [address] Name, MD Ham 230 [place] [address] Med Refill Social History Tobacco Use Types Packs/Day Years [...] encounter Miscellaneous Notes * Telephone Encounter - Amber Everett LPN - 05/28/2025 10:16 AM EDT Medication was sent to [id number] on 02/07/25 with 11 refills. * Telephone Encounter - Fanny Bustamante - 05/28/2025 10:06 AM EDT TC from pt requesting medication refill. Medications needing refill : Tirzepatide (Mounjaro) 5 MG/0.5ML solution auto-injector To be sent to: [id number] - [place], [place] - [address] [facility] documented in this encounter Plan of Treatment Upcoming Encounters Date Type Department Care Team (Late st Contact Info) Description 06/19/2025 9:30 AM EST Medication Management [facility] MEDICINE 230 [place] [address] Marya Echavarria, PharmD 230 [place] [address] 06/26/2025 1:00 PM EST Office Visit [facility] OPTOMETRY 267 [place] [address] Sonurayna Sabrina, OD 267 [place] [address] 06/27/2025 11:15 AM EST Office Visit [facility] MEDICINE 230 [place] [address] Name, MD Ham 230 [place] [address] documented as of this encounter Visit Diagnoses Not on filedocumented in this encounter Additional Health Concerns Assessment Noted Time PHQ-9 Depression Total Score: 5 04/02/20 9:52 AM EDT documented as of this encounter Care Teams Cartridge Loader Relationship Specialty Start Date End Date Name, MD Ham [address] [place] [address] PCP - General Family Medicine 01/28/16 Marya Echavarria PharmD [address] [place] [address] Pharmacist Internal Medicine 01/11/25 documented as of this encounter
--- OUTSIDE RECORDS SUMMARY | 2025-06-07 16:45 | XMS_ITS | Encounter Summary ---
Author Organization [employer] Address [address] [place] [address] 7t [place] [address] Care Team Providers Care Steward/Stewardess Room Name Role Phone Name, Ham HERRING Primary Care Provider [phone] Marya Echavarria PharmD Unavailable [phone] Reason for Visit * Reason Onset Date Comments Chart Prep 06/06/2025 Encounter Details Date Type Department Care Team ([facility] st Contact Info) Description 06/06/2025 Telephone [facility] [address] [place] [address] Name, MD Ham 230 [place] [address] Chart Prep Social History Tobacco Use Types Packs/Day Years [...] your housing situation today? I have gracie sing 11/01/[address] you li [...] encounter Miscellaneous Notes * Telephone Encounter - Emily Quintero MA - 06/06/2025 10:14 AM EDT Chart Prep Labs: done Images: done Referrals: Eye exam for 06/26/2025 at 1pm. Vaccines due: Covid, Hep B, Hep A, RSV, and Zoster Screenings: mammogram and eye exam Overdue care gaps: Glucose and MELISSA-7 Last A1c was 6.4 in March f - notes are in chart documented in this encounter Plan of Treatment Upcoming Encounters Date Type Department Care Team (Late st Contact Info) Description 06/19/2025 9:30 AM EST Medication Management [facility] MEDICINE 230 [place] [address] Marya Echavarria, PharmD 230 [place] [address] 06/26/2025 1:00 PM EST Office Visit [facility] OPTOMETRY 267 [place] [address] Sabrina Wilson, OD 267 [place] [address] 06/27/2025 11:15 AM EST Office Visit [facility] MEDICINE 230 [place] [address] [place], [place] [address] documented as of this encounter Visit Diagnoses Not on filedocumented in this encounter Additional Health Concerns Assessment Noted Time PHQ-9 Depression Total Score: 5 04/02/20 9:52 AM EDT documented as of this encounter Care Teams Steward/Stewardess Room Relationship Specialty Start Date End Date [place], [place] [address] PCP - General Family Medicine 01/28/16 Marya Echavarria PharmD [address] [place] [address] Pharmacist Internal Medicine 01/11/25 documented as of this encounter
--- OUTSIDE RECORDS SUMMARY | 2025-06-07 16:45 | XMS_ITS | Encounter Summary ---
Author Organization [employer] Address [address] [place] [address] 7 [place] [address] Care Team Providers Care Ethylene Plant Operator Name Role Phone Name, Ham HERRING Primary Care Provider [phone] Marya Echavarria PharmD Unavailable Reason for Visit * Reason Onset Date Comments Appointment Request 04/17/2025 Encounter Details Date Type Department Care Team ([facility] st Contact Info) Description 04/17/2025 Telephone [facility] MEDICINE 230 [place] [address] Name, MD Ham 230 [place] [address] Appointment Request Social History Tobacco Use Types [...] to reschedule CDTM apt Contact pt at [phone] (stateless) documented in this encounter Plan of Treatment Upcoming Encounters Date Type Department Care Team ([facility] st Contact Info) Description 06/19/2025 9:30 AM EST Medication Management [facility] MEDICINE [address] [place] [address] Marya Echavarria, PharmD 230 [place] [address] 06/26/2025 1:00 PM EST Office Visit [facility] OPTOMETRY 267 [place] [address] Sabrina Wilson OD 267 [place] [address] 06/27/2025 11:15 AM EST Office Visit [facility] MEDICINE 230 [place] [address] Name, MD Ham 230 [place] [address] documented as of this encounter Visit Diagnoses Not on filedocumented in this encounter Additional Health Concerns Assessment Noted Time PHQ-9 Depression Total Score: 5 04/02/20 25 9:52 AM EDT documented as of this encounter Care Teams Ethylene Plant Operator Relationship Specialty Start Date End Date Name, MD Ham 230 [place] [address] PCP - General Family Medicine 01/28/16 Marya Echavarria PharmD 230 [place] [address] Pharmacist Internal Medicine 01/11/25 documented as of this encounter
--- OUTSIDE RECORDS SUMMARY | 2025-06-07 16:45 | XMS_ITS | Encounter Summary ---
Author Organization [employer] Address [address] [place] [address] 7t [place] [address] Care Team Providers Care Supervisor Shuttle Preparation Name Role Phone Name, Ham HERRING Primary Care Provider [phone] Marya Echavarria PharmD Unavailable [phone] Reason for Visit * Reason Comments Med Refill Encounter Details Date Type Department Care Team ([facility] st Contact Info) Description 08/25/2024 Refill [facility] 230 [place] [address] Name, MD Ham 230 [place] [address] Recurrent UTI Social History Tobacco Use Types [...] EST Medication Management [facility] MED[facility] [address] [place] [address] Marya Echavarria, PharmD [address] [place] [address] 06/26/2025 1:00 PM EST Office Visit [facility] OPTOMETRY [address] [place] [address] Sabrina Wilson, OD [address] [place] [address] 06/27/2025 11:15 AM EST Office Visit [facility] MED[facility] [address] [place] [address] Name, MD Ham [address] [place] [address] documented as of this encounter Visit Diagnoses Diagnosis Recurrent UTI Urinary tract infection, site not specified documented in this encounter Additional Health Concerns Assessment Noted Time PHQ-9 Depression Total Score: 24 024 11:40 AM EDT documented as of this encounter Care Teams Supervisor Shuttle Preparation Relationship Specialty Start Date End Date Ham Hay MD [address] [place] [address] PCP - General Family Medicine 01/28/16 Marya Echavarria, PharmD [address] [place] [address] Pharmacist Internal Medicine 01/11/25 documented as of this encounter
--- OUTSIDE RECORDS SUMMARY | 2025-06-07 16:45 | XMS_ITS | Encounter Summary ---
Author Organization [employer] Address [address] [facility] 7t [place] [address] Care Team Providers Care Certified Pathology Assistant Name Role Phone Name, Ham HERRING Primary Care Provider [phone] Marya Echavarria PharmD Unavailable [phone] Reason for Visit * Reason Comments Med Refill Encounter Details Date Type Department Care Team ([facility] st Contact Info) Description 04/18/2024 Refill [facility] 230 [place], [place] [id number] Name, MD Ham 230 [place] [address] Acute herpes zoster neuropathy Social History Tobacco [...] Description 06/19/2025 9:30 AM EST Medication Management [facility] MEDICINE [address] [place] [address] Marya Echavarria, PharmD [address] [place] [address] 06/26/2025 1:00 PM EST Office Visit [facility] OPTOMETRY [address] [place] [address] Sabrina Wilson, OD 267 [place] [address] 06/27/2025 11:15 AM EST Office Visit [facility] MEDICINE [address] [place] [address] NameHam MD [address] [place] [address] documented as of this encounter Visit Diagnoses Diagnosis Acute herpes zoster neuropathy documented in this encounter Additional Health Concerns Assessment Noted Time PHQ-9 Depression Total Score: 11 024 3:36 PM EDT documented as of this encounter Care Teams Certified Pathology Assistant Relationship Specialty Start Date End Date Ham Hay MD [address] [place] [address] PCP - General Family Medicine 01/28/16 Marya Echavarria, PharmD [address] [place] [address] Pharmacist Internal Medicine 01/11/25 documented as of this encounter
== END 2025-06-07 15:10 | disposition home or self-care (01) ==
LOC: HO.HGI 13:44
PROVIDERS: PCP Internal Medicine Geriatric Medicine; Visit Provider Nurse Practitioner
DX: K59.04 Chronic idiopathic constipation (principal); K59.9 Functional intestinal disorder, unspecified; K56.7 Ileus, unspecified; R11.2 Nausea with vomiting, unspecified; K21.9 Gastro-esophageal reflux disease without esophagitis
CPT/HCPCS: 99214

== ENCOUNTER → 2025-06-07 13:44 | Outpatient (BNVA) | payer OTHER, SELFPAY | PROVIDERS: PCP Internal Medicine Geriatric Medicine; Visit Provider Nurse Practitioner | DX: K59.9 Functional intestinal disorder, unspecified (principal); K21.9 Gastro-esophageal reflux disease without esophagitis; K59.04 Chronic idiopathic constipation; K56.7 Ileus, unspecified; R11.2 Nausea with vomiting, unspecified; Z87.19 Personal history of other diseases of the digestive system | CPT/HCPCS: 99212 ==

== ENCOUNTER 2025-06-19 11:34 | Outpatient (REF) | payer OTHER, SELFPAY ==
--- OUTSIDE RECORDS SUMMARY | 2025-06-19 13:39 | XMS_ITS | Encounter Summary ---
Author Organization [employer] Address [address] [facility] 7t [place] [address] Care Team Providers Care Collective Bargaining Specialist Name Role Phone Name, Ham HERRING Primary Care Provider [phone] Encounter Details Date Type Department Care Team (Latest Contact Info) Description 06/19/2025 Travel Social History Tobacco Use Types Packs/Day [...] your housing situation today? I have gracie belel 11/01/[address] you li [...] Care Team (Late st Contact Info) Description 06/26/2025 1:00 PM EST Office Visit [facility] OPTOMETRY [address] [place] [address] Sabrina Wilson, OD 267 [place] [address] 06/27/2025 11:15 AM EST Office Visit [facility] MEDICINE 230 [place] [address] Name, MD Ham 230 [place] [address] documented as of this encounter Visit Diagnoses Not on filedocumented in this encounter Additional Health Concerns Assessment Noted Time PHQ-9 Depression Total Score: 5 04/02/20 25 9:52 AM EDT documented as of this encounter Care Teams Collective Bargaining Specialist Relationship Specialty Start Date End Date NameHam MD [address] [place] [address] PCP - General Family Medicine 01/28/16 documented as of this encounter
--- OUTSIDE RECORDS SUMMARY | 2025-06-19 13:39 | XMS_ITS | Patient Health Record ---
Author Organization [facility] Address [address] [place] [address] Care Team Providers Care [facility] Office Supervisor Name Role Phone Dragan Tejeda Jr Reason For Referral No Information Plan Of Treatment No Information
--- OUTSIDE RECORDS SUMMARY | 2025-06-19 13:39 | XMS_ITS | Clinical Summary ---
Author Organization [employer] Address [address] [place] [address] 7t [place] [address] Care Team Providers Care Toolroom Machinist Name Role Phone Name, Ham HERRING Primary Care Provider [phone] Allergies Active Allergy Reactions Criticality Noted Date [...] DAILY AFTER MEALS 07/26/20 22 Active Creon 98327-52653 units capsule Take 1 capsule by mouth [...] if needed for pain. 12/13/19 25 Active Blood Glucose Monitoring Suppl (FreeStyle Precision Issac System) w/Device kitIndications :Type 2 diabetes mellitus without complication, without long-term current use of insulin ([facility]) 1 each Once per day. 1 kit 01/12/20 25 Active glucose 4 g chewable tabletIndicati ons:Type 2 diabetes mellitus without complication, without long-term current use of insulin ([facility]),Hypoglyc emia Chew 4 tablets (16 g) if needed for low blood sugar. <70 mg/dL. Repeat treatment as needed. 40 tablet 5 01/12/20 25 026 Active glucose blood (FreeStyle Precision Issac Test) test stripIndicatio ns:Type 2 diabetes mellitus without complication, without long-term current use of insulin ([facility]) Use to test blood sugar up once daily, as directed 50 each 11 01/12/20 25 Active FreeStyle lancetsIndicat ions:Type 2 diabetes mellitus without complication, without long-term current use of insulin ([facility]) 1 each by Other route Once [...] DRINK 17G BY MOUTH EVERY DAY 02/02/20 25 Active clotrimazole-b etamethasone (Lotrisone) cream Apply topically 2 times daily. 05/23/20 25 Active lamoTRIgine (LaMICtal) 25 MG tablet Take 1 tablet by mouth once daily for 2 weeks then 2 tablets daily 05/23/20 25 Active risperiDONE (RisperDAL) 0.5 MG tablet Take 1 tablet by mouth 3 times daily. 05/13/20 25 Active cephalexin (Keflex) 250 MG capsule Take 1 capsule by mouth Once per day. For recurrent UTI 05/25/20 Active Vraylar 4.5 MG capsule Take 1 capsule by mouth at bedtime. 06/14/20 Active famotidine (Pepcid) 40 MG tablet Take 40 mg by mouth at bedtime. 06/07/20 Active prazosin (Minipress) 2 MG capsule Take 6 mg by mouth at bedtime. 06/14/20 Active venlafaxine XR (Effexor XR) 75 MG 24 hr capsule Take 75 mg by mouth Once per day. In addition to 150 mg capsule 06/14/20 Active metFORMIN XR (Glucophage-XR ) 500 MG 24 hr tabletIndicati ons:Type 2 diabetes mellitus without complication, without long-term current use of insulin (HCC) Take 1 tablet (500 mg) by mouth with evening meal. Do not crush, chew, or split. 90 tablet 1 06/19/20 Active Tirzepatide (Mounjaro) 5 MG/0.5ML solution auto-injectorI ndications:Typ e 2 diabetes mellitus without complication, without long-term current use of insulin (HCC) Inject 5 mg under the skin 1 (one) time per week. 2 mL 06/19/20 Active prazosin (Minipress) 2 MG capsule TAKE [...] tablet by mouth Once per day. 10/09/19 25 025 Discontinued(Me d list cleanup (will not [...] by mouth every 6 (six) hours. 12/12/19 025 Discontinued(Me d list cleanup (will not trigger notification to Pharmacy)) Tirzepatide (Mounjaro) 5 MG/0.5ML solution auto-injectorI ndications:Typ e 2 diabetes mellitus without complication, without long-term current use of insulin (HCC) Inject 5 mg under the skin 1 (one) time per week. Do not start before February 07, 2025. 2 mL 02/08/20 025 Discontinued(Re order (will not trigger notification to Pharmacy)) ondansetron (Zofran) 4 MG tablet Take 1 tablet (4 mg) by mouth every 8 (eight) hours if needed for nausea or vomiting. 60 tablet 1 01/12/20 025 Discontinued(Me d list cleanup (will not trigger notification to Pharmacy)) Ibsrela 50 MG tablet TAKE 1 TABLET BY MOUTH TWICE DAILY BEFORE BREAKFAST AND DINNER 02/07/20 025 Discontinued(Me d list cleanup (will not trigger notification to Pharmacy)) metFORMIN XR (Glucophage-XR ) 500 MG 24 hr tabletIndicati ons:Type 2 diabetes mellitus without complication, without long-term current use of insulin (HCC) Take 1 tablet (500 mg) by mouth with evening meal. Do not crush, chew, or split. 90 tablet 1 02/21/20 025 Discontinued(Re order (will not trigger notification to Pharmacy)) Vraylar 3 MG capsule Take 1 capsule by mouth at bedtime. 05/23/20 025 Discontinued(Me d list cleanup (will not trigger notification to Pharmacy)) prazosin (Minipress) 1 MG capsule Take 2 capsules by mouth at bedtime. 05/23/20 025 Discontinued(Me d list cleanup (will not trigger notification to Pharmacy)) prazosin (Minipress) 5 MG capsule Take 1 capsule by mouth at bedtime. 05/24/20 025 Discontinued(Me d list cleanup (will not trigger notification to Pharmacy)) traZODone (Desyrel) 100 MG tablet Take 1-2 tablets by mouth at bedtime. 05/28/20 025 Discontinued(Si de effects) Active Problems Problem Noted Date Diagnosed Date Bipolar disorder, in partial remission, most recent episode manic ([facility]/HCC) 06/07/2025 Psychosis ([facility]) 06/07/2025 PTSD (post-traumatic stress disorder) 06/07/2025 QT [...] organization. Date Type Department Care Team Description 06/19/2025 Travel 06/08/[address] [address] Ham Hay MD Med Refill 06/07/2025 10:00 AM EDT Office Visit [address] [address] Ham Hay MD QT prolongation (Primary Dx); Bipolar disorder, in partial remission, most recent episode depressed (CMS/HCC) (HCC); Psychosis, unspecified psychosis type (CMS/HCC) (HCC); PTSD (post-traumatic stress disorder); Encounter for vaccination 06/07/2025 Travel 06/06/2025 Telephone [facility] [address] [place] [address] Ham Hay MD Chart Prep 05/28/2025 Telephone [facility] [address] [place] [address] Ham Hay MD Med Refill 05/23/2025 Patient Outreach [facility] [address] [place] [address] Ham Hay MD Transition Of Care (Tcm) (HDF Scheduled. ) 05/17/[address] [address] Ham Hay MD 05/16/2025 Telephone [facility] [place] [address] Ham Hay MD 05/09/2025 Orders Only GENERIC EXTERNAL DATA DEPARTMENT Provider, Generic External Data 04/17/2025 Telephone [facility] [address] Ham Hay MD Appointment Request 04/13/[address] [address] Ham Hay MD Med Refill 04/06/2025 Results Follow-Up [address] [place] [address] Ham Hay MD Comprehensive Metabolic Panel, Lipid Panel with Reflex to Direct LDL 04/02/2025 10:00 AM EDT Office Visit [facility] [place] [address] Ham Hay MD Type 2 diabetes mellitus without complication, without long-term current use of insulin ([facility]) (Primary Dx) 04/02/2025 Orders Only [facility] [place] [address] Ham Hay MD 04/02/2025 Travel 03/29/[address] [address] Ham Hay MD 03/21/[address] [address] Marya Echavarria, PharmD from Last 3 Months Immunizations Immunization Administration Dates Next Due Influenza High-dose Quadriva lent Preservative Free 06/30/2023,05/13/2022 Influenza injectable quadriv alent IIV4 with preservative 05/17/2019,04/27/2017,05/04/2016,05/07 Influenza injectable quadriv alent preservative free 07/02/2021,05/01/2020,10/24/2018 Influenza, IIV3, injectable 05/30/2014, 8 Influenza, Split (incl. alfredo fied surface antigen) 05/09/2013,05/25/2012 Influenza, seasonal, injecta ble, preservative free 05/11/2025,04/21/2024 Pfizer Covid-19 Vaccine 12+ 06/07/2025 Pneumococcal Conjugate [...] Description 06/26/2025 1:00 PM EST Office Visit [facility] [address] [place] [address] Sabrina Wilson, OD [address] [place] [address] 06/27/2025 11:15 AM EST Office Visit [facility] [address] [place] [address] Name, MD Ham [address] [place] [address] Health Maintenance Due Date Last Done Comments [...] Opiate Screen Urine Not Detected Not Detect [facility] Comment:Opiate cut-off is 30 0 ng/mL.Positive results are unconfirmed and should not be used fornon-medical purposes. Barbiturates, Urine Not Detected Not Detect [facility] Comment:Barbiturate cut-off is 200 ng/mL.Positive results are unconfirmed and should not be used fornon-medical purposes. Phencyclidine Screen Urine Not Detected Not Detect [facility] Comment:Phencyclidine cut-of f is 25 ng/mL.Positive results are unconfirmed and should not be used fornon-medical purposes. Amphetamine Screen Urine Not Detected Not Detect [facility] Comment:Amphetamine cut-off is 1000 ng/mL.Positive results are unconfirmed and should not be used fornon-medical purposes. Benzodiazepines Screen Urine POSITIVE(A) Not Detect [facility] Comment:Benzodiazepine cut-o ff is 200 ng/mL.Positive results are unconfirmed and should not be used fornon-medical purposes. Cocaine Screen Urine Not Detected Not Detect [facility] Comment:Cocaine cut-off is 3 00 ng/mL.Positive results are unconfirmed and should not be used fornon-medical purposes. Cannabinoid Screen Urine Not Detected Not Detect [facility] Comment:Cannabinoid cut-off is 50 ng/mL.Positive results are unconfirmed and should not be used fornon-medical purposes. Methadone Screen, Urine Not Detected Not Detect ng/mL [facility] Comment:Methadone cut-off is 300 ng/mL.Positive results are unconfirmed and should not be used fornon-medical purposes. FENTANYL URINE Not Detected Not Detect [facility] Comment:Fentanyl cut-off is 1 ng/mL.Positive results are unconfirmed and should not be used fornon-medical purposes. Oxycodone Urine Screen Not Detected Not Detect ng/mL [facility] Comment:Oxycodone cut-off is 100 ng/mL.Positive results are unconfirmed and should not be used fornon-medical purposes. Buprenorphine Screen Not Detected Not Detect ng/mL [facility] Comment:Buprenorphine cut-of f is 5 ng/mL.Positive results are unconfirmed and should not be used fornon-medical purposes. 05/09/2025 9:37 AM EDT 05/09/2025 9:40 AM EDT us Generic External Data Provider LAB URINE ORDERAB LES Final Result Performing Organization Address City/[facility]/ZIP Co de Phone Number [facility] [address] [place] [phone] * (ABNORMAL) Urinalysis Complete (05/09/2025 9:37 AM EDT) Color Urine Yellow [facility] Appearance Urine Clear [facility] PH 7.0 5.0 - 9.0 [facility] Glucose Urine UA 100(A) Negative mg/dL [facility] Urine Blood Negative Negative [facility] Specific [place] - Urine 1.015 1.005 - 1.025 [facility] Urine Protein Trace Neg-Trace mg/dL [facility] Urine Ketones >=160 Negative mg/dL [facility] Nitrite Urine Negative Negative [facility] Leukocyte Esterase Urine Trace(A) Negative [facility] RBC Urine 0-2 0 - 2 /HPF [facility] Urine WBC 0-5 0 - 5 /HPF [facility] Urine Squamous Epithelial Cell 0-2 0 - 2 /HPF [facility] Urine Bacteria None Seen None Seen [facility] Hyaline Casts, Urine 0-2 0 - 2 /LPF [facility] 05/09/2025 9:37 AM EDT 05/09/2025 9:40 AM EDT us Generic External Data Provider LAB URINE ORDERAB LES Final Result Performing Organization Address [facility]/ZIP Co de Phone Number [facility] [address] [place] [phone] * Lipid Panel with Reflex to Direct LDL (04/02/2025 10:15 AM EDT) Triglycerides 145 <150 mg/dL [facility] Comment:Desirable Triglyceri de: less than 150 mg/dLBorderline High Triglyceride 150-199 mg/dLHigh Triglyceride: 200-499 mg/dLVery High Triglyceride: greater than or equal to 5OO mg/dL Cholesterol 167 <200 mg/dL [facility] Comment:Desirable Cholestero l: less than 200 mg/dLBorderline High Cholesterol: 200-239 mg/dLHigh Cholesterol: greater than 239 mg/dL LDL Cholesterol Calculated 81 <100 mg/dL [facility] Comment:Desirable LDL: less than 100 mg/dLNear Optimal/Above Optimal LDL: 110- 129 mg/dLBorderline High LDL: 130-159 mg/dLHigh LDL: 160-189 mg/dLVery High LDL: greater than or equal to 190 mg/dL HDL Cholesterol 57 >40 mg/dL [facility] Comment:Desirable HDL: great er than 40 mg/dL Note: This HDL assay may give artificially low results in patients with liver disease. 04/02/2025 10:1 5 AM EDT 04/02/2025 11:25 AM EDT Ham Hay MD LAB BLOOD ORDERABLES Final Resul t Performing Organization Address City/[facility] Co de Phone Number [facility] [address] [place] [phone] * Magnesium (04/02/2025 10:15 AM EDT) Magnesium 2.3 1.6 - 2.6 mg/dL [facility] Blood Venous blood specimen / Unknown 04/02/2025 10:15 AM EDT 04/02/2025 11:28 AM EDT Perfecto Pat MD LAB BLOOD ORDERABLES Final Resul t Performing Organization Address [facility] Co de Phone Number [facility] [address] [place] [phone] * (ABNORMAL) Hemoglobin A1c (04/02/2025 10:15 AM EDT) Hemoglobin A1c 6.4(H) <6.0 % [facility] Comment:Hemoglobin A1C Refer ence Range Adults: 4.8 - 6.0 % Non diabetic: < 6.0 % Goal: < 7.0 %Additional Action Suggested: > 8.0 %Note: Hemoglobin A1c results are invalid for patients with abnormal amounts of HbF. Blood transfusions may impact the HbA1c concentration in the patient sample. Estimated Average Glucose 137 mg/dL [facility] Comment:eAG = Estimated ave rage glucose which is %A1C expressed asaverage glucose, using the formula of the [id number] Glucose study (ADAG), Diabetes Care, Vol.31,#8,Mar. 2007 Blood Venous blood specimen / Unknown 04/02/2025 10:15 AM EDT 04/02/2025 11:28 AM EDT Perfecto Pat MD LAB BLOOD ORDERABLES Final Resul t [facility] [address] [place] [phone] * (ABNORMAL) Comprehensive Metabolic Panel (04/02/2025 10:15 AM EDT) Pathologist [facility] Sodium 141 135 - 145 mmol/L [facility] Potassium 4.1 3.3 - 5.1 mmol/L [facility] Chloride 102 96 - 108 mmol/L [facility] Carbon Dioxide 30(H) 22 - 29 mmol/L [facility] Anion Gap 13 12 - 20 [facility] Urea Nitrogen (BUN) 15 9 - 16 mg/dL [facility] Creatinine, Serum 1.19 0.5 - 1.4 mg/dL [facility] Estimated Glomerular Filt Rate 45 [facility] Comment:Chronic Kidney Disea se: Estimated GFR < 60 mL/min/1.29u3Tujlrx Kidney Disease: Estimated GFR < 15 mL/min/1.73m2 Glucose 163(H) 60 - 115 mg/dL [facility] Calcium 9.7 8.4 - 10.2 mg/dL [facility] Bilirubin, Total 0.3 0.0 - 1.0 mg/dL [facility] Aspartate Amino Transferase 21 5 - 31 U/L [facility] Alanine Aminotransferase 23 0 - 31 U/L [facility] Total Protein 6.7 6.5 - 8.0 g/dL [facility] Albumin Level 4.3 3.5 - 5.0 g/dL [facility] Alkaline Phosphatase 115 39 - 117 U/L [facility] 04/02/2025 10:1 5 AM EDT 04/02/2025 11:28 AM EDT us Ham Hay MD LAB BLOOD ORDERABLES Final Resul t [facility] [address] [place] [phone] * POCT Glucose (04/02/2025 9:54 AM [...] AM EDT Narrative 06/09/2024 10:51 AM EDT [facility] [address] [place] [address] Mammography Report Signed Patient: Makenna Ortiz MR#: [id number] : 1955 Acct:[id number] Age/Sex: 69 / F ADM Date: 05/29/24 Loc: HO.MAMMO Attending Dr: Ham Hay MD Ordering Physician: Ham Hay MD Results: 1Negative Date of Service: 05/29/24 Follow Up: 1 Year From Orig inal Mammogram Procedure(s): MM tomosynthesis screening BI Accession Number(s): [id number] cc: Ham Hay MD EXAMINATION: MM SCREENING [...] 06/09/24 1048 DD/ 1138 TD/TT: 05/29/24 1153 Mix Crusher Operator: Procedure Note Donotuseinterpreter, Image - 06/09/2024 [facility] [address] [place] [address] Mammography Report Signed Patient: Makenna OrtizMR#: [id number] : 7Acct:[id number] Age/Sex: 69 / FADM Date: 05/29/24 Loc: FIDEO Attending Dr: Ham Hay MD Ordering Physician: Ham Hay MDResults: 1Negative Date of Service: 05/29/24Follow Up: 1 Year From Orig inal Mammogram Procedure(s): MM tomosynthesis screening BI Accession Number(s): [id number] cc: Ham Hay MD EXAMINATION: MM SCREENING [...] 06/09/24 1048 DD/ 1138 TD/TT: 05/29/24 1153 Mix Crusher Operator: us Ham Hay MD IMG BI PROCEDURES Edited Result - Final * Albumin, Random Urine W/Creatinine (01/18/2024 8:56 AM EDT) Creatinine, Urine 239.15 mg/dL [facility] Microalbumin Urine 18.0 mg/L [facility] Microalbum Creatinine Ratio Ur 7.5 <30 ug/mg cr [facility] Comment:Albumin/Creatinine R atio Reference Ranges: Normal: < 30 ug/mg creatinine Microalbuminuria: 30 - 300 ug/mg creatinineClinical Albuminuria: > 300 ug/mg creatinine Urine (Urine, Random) 01/18/2024 8:56 AM EDT 01/18/2024 11:08 AM EDT us Ham Hay MD LAB URINE ORDERABLES Final Resul t [facility] [address] [place] [address] [phone] * (ABNORMAL) Colonoscopy (05/09/2019) Colonoscopy Abnormal(A ) Normal [facility] External Provider HEALTH MAINTENANCE Final Result from Last 3 Months or Most Recently Relevant to Health Maintenance Insurance [facility] [employer] (O D-SNP) [place] [id number] Care Teams Toolroom Machinist Relationship Specialty Start Date End Date Name, MD Ham [address] [place] [phone] PCP - General Family Medicine 01/28/16
--- OUTSIDE RECORDS SUMMARY | 2025-06-19 13:39 | XMS_ITS | Encounter Summary ---
Author Organization [employer] Address [address] [place] [address] Care Team Providers Care Wire Mesh Gate Assembler Name Role Phone Name, Ham HERRING Primary Care Provider [phone] Marya Echavarria PharmD Unavailable [phone] Reason for Visit * Reason Onset Date Comments FYI 04/21/2024 Encounter Details Date Type Department Care Team ([facility] st Contact Info) Description 04/21/2024 Telephone [facility] [address] [place] [address] Name, MD Ham [address] [place] [address] FYI Social History Tobacco Use Types Packs/Day [...] - 04/21/2024 3:49 PM EDT Tc from [facility] calling to inform pcp pt has been admitted into hospital. If any questions you can contact [facility] at [phone]. documented in this encounter Plan of Treatment Upcoming Encounters Date Type Department Care Team (Late st Contact Info) Description 06/26/2025 1:00 PM EST Office Visit [facility] [address] [place] [address] Steve Sabrina, OD [address] [place] [address] 06/27/2025 11:15 AM EST Office Visit [facility] [address] [place] [address] NameHam MD [address] [place] [address] documented as of this encounter Visit Diagnoses Not on filedocumented in this encounter Additional Health Concerns Assessment Noted Time PHQ-9 Depression Total Score: 11 024 3:36 PM EDT documented as of this encounter Care Teams Wire Mesh Gate Assembler Relationship Specialty Start Date End Date NameHam MD [address] [place] [phone] PCP - General Family Medicine 01/28/16 Marya Echavarria, [place] [address] [place] [phone] Pharmacist Internal Medicine 01/11/25 06/18/25 documented as of this encounter
--- OUTSIDE RECORDS SUMMARY | 2025-06-19 13:39 | XMS_ITS | Encounter Summary ---
Author Organization [employer] Address [address] [place] [address] 7 [place] [address] Care Team Providers Care Sales And Service Associate Name Role Phone Name, Ham HERRING Primary Care Provider [phone] Marya Echavarria PharmD Unavailable [phone] Encounter Details Date Type Department Care Team (Late st Contact Info) Description 07/14/2022 Abstract [facility] [address] [place] [phone] Provider, MD Meghan Social History Tobacco Use [...] PM EST Office Visit [facility] [address] [place] [phone] Sabrina Wilson, OD [address] [place] [phone] 06/27/2025 11:15 AM EST Office Visit [facility] [address] [place] [phone] Ham Hay MD [address] [place] [address] documented as of this encounter Visit Diagnoses Not on filedocumented in this encounter Care Teams Sales And Service Associate Relationship Specialty Start Date End Date Name, MD Ham [address] [place] [address] PCP - General Family Medicine 01/28/16 Marya Echavarria PharmD [address] [place] [address] Pharmacist Internal Medicine 01/11/25 06/18/25 documented as of this encounter
--- OUTSIDE RECORDS SUMMARY | 2025-06-19 13:39 | XMS_ITS | Encounter Summary ---
Author Organization [employer] Address [address] [place] [address] 7t [place] [address] Care Team Providers Care Television Actor Name Role Phone Name, Ham HERRING Primary Care Provider [phone] Marya Echavarria PharmD Unavailable [phone] Reason for Visit * Reason Comments Med Refill Encounter Details Date Type Department Care Team ([facility] st Contact Info) Description 05/30/2024 Refill [facility] [address] [place] [address] Name, MD Ham [address] [place] [address] Social History Tobacco Use Types Packs/Day Years [...] 1:00 PM EST Office Visit [facility] OPT[facility] [address] [place] [address] Sabrina Wilson, OD [address] [place] [address] 06/27/2025 11:15 AM EST Office Visit [facility] MED[facility] [address] [place] [address] Name, MD Ham [address] [place] [address] documented as of this encounter Visit Diagnoses Not on filedocumented in this encounter Additional Health Concerns Assessment Noted Time PHQ-9 Depression Total Score: 24 024 11:40 AM EDT documented as of this encounter Care Teams Television Actor Relationship Specialty Start Date End Date Name, MD Ham [address] [place] [phone] PCP - General Family Medicine 01/28/16 Marya Echavarria PharmD [address] [place] [phone] Pharmacist Internal Medicine 01/11/25 06/18/25 documented as of this encounter
--- OUTSIDE RECORDS SUMMARY | 2025-06-19 13:39 | XMS_ITS | Encounter Summary ---
Author Organization [employer] Address [address] [place] [address] 7t [place] [address] Care Team Providers Care Neurology Specialist Name Role Phone Name, Ham HERRING Primary Care Provider [phone] Marya Echavarria PharmD Unavailable [phone] Reason for Visit * Reason Comments Med Refill Encounter Details Date Type Department Care Team ([facility] st Contact Info) Description 08/25/2024 Refill [facility] [address] [place] [address] Name, MD Ham [address] [place] [address] Recurrent UTI Social History Tobacco Use Types [...] Description 06/26/2025 1:00 PM EST Office Visit [facility] OPTOM[facility]RY [address] [place] [address], OD [address] [place] [address] 06/27/2025 11:15 AM EST Office Visit [facility] [address] [place] [address] Name, MD Ham [address] [place] [address] documented as of this encounter Visit Diagnoses Diagnosis Recurrent UTI Urinary tract infection, site not specified documented in this encounter Additional Health Concerns Assessment Noted Time PHQ-9 Depression Total Score: 24 024 11:40 AM EDT documented as of this encounter Care Teams Neurology Specialist Relationship Specialty Start Date End Date Name, MD Ham [address] [place] [address] PCP - General Family Medicine 01/28/16 Marya Echavarria PharmD [address] [place] [address] Pharmacist Internal Medicine 01/11/25 06/18/25 documented as of this encounter
--- OUTSIDE RECORDS SUMMARY | 2025-06-19 13:39 | XMS_ITS | Encounter Summary ---
Author Organization [employer] Address [address] [place] [address] 7t [place] [address] Care Team Providers Care Street Light Repairer Helper Name Role Phone Name, Ham HERRING Primary Care Provider [phone] Marya Echavarria PharmD Unavailable [phone] Encounter Details Date Type Department Care Team (Late Contact Info) Description 10/27/2022 Orders Only [facility] P[facility]S [address] [place], [place] [phone] Amber Everett LPN Social History Tobacco Use [...] Description 06/26/2025 1:00 PM EST Office Visit [facility] OPTOMETRY [address] [place], [place] [phone] Sabrina Wilson OD 267 [place], [place] [phone] 06/27/2025 11:15 AM EST Office Visit [facility] MEDICINE 230 [place], [place] [phone] Name, MD Ham [address] [place] [address] documented as of this encounter Visit Diagnoses Not on filedocumented in this encounter Care Teams Street Light Repairer Helper Relationship Specialty Start Date End Date Name, MD Ham [address] [place] [address] PCP - General Family Medicine 01/28/16 Marya Echavarria PharmD [address] [place] [address] Pharmacist Internal Medicine 01/11/25 06/18/25 documented as of this encounter
--- OUTSIDE RECORDS SUMMARY | 2025-06-19 13:39 | XMS_ITS | Clinical Summary ---
Author Organization [facility] Address [address] [place] [address] Phone Care Team Providers Care Senior Data Integration Developer Name Role Phone Physician, No Pcp Primary [...] EDT - 05/08/2025 2:20 PM EDT Emergency [facility] Emergency [address] [place] [phone] Tee Campbell MD Weakness (Primary Dx); [...] resultswithin the time period is included. Pathologist [facility] Ventricular Rate ECG 87 BPM GEMUSE Atrial Rate 87 BPM GEMUSE P-R Interval 222 ms GEMUSE QRS Duration 76 ms GEMUSE Q-T Interval 332 ms GEMUSE QTc 399 ms GEMUSE P Wave Paton 65 degrees GEMUSE R Paton 92 degrees GEMUSE T Paton 114 degrees GEMUSE ECG Interpretation Sinus rhythm [...] BLOOD GAS METHOD 05/08/2025 11:58 AM EDT [facility] Blood Venous blood specimen / Unknown Venipuncture / Unknown 05/08/2025 11:38 AM EDT 05/08/2025 11:50 AM EDT Tee Campbell MD LAB BLOOD ORDERABLES Final Result Performing Organization Address [facility]/ZIP Co de Phone Number [facility] [address] [place] [address], * Troponin I High Sensitivity (05/08/2025 11:38 AM EDT) [facility] High Sensitivity Troponin I 4 0 - 14 ng/L LAB CHEMISTRY METHOD 05/08/2025 12:29 PM EDT [facility] Blood Venous blood specimen / Unknown Venipuncture / Unknown 05/08/2025 11:38 AM EDT 05/08/2025 11:50 AM EDT Narrative [facility] - 05/08/2025 12:29 [...] method is an immunoenzymatic assay manufactured by [employer] and performed on the KLab DxI 800. Tee Campbell MD LAB BLOOD ORDERABLES Final Result Performing Organization Address [facility] Co de Phone Number [facility] [address] [place] [address], [place] [phone] * (ABNORMAL) CBC auto differential (05/08/2025 11:38 AM EDT) [facility] WBC 6.4 4.0 - 10.5 K/[facility] HEMETOLOGY METHOD 05/08/2025 12:02 PM EDT [facility] RBC 4.58 4.20 - 5.40 M/[facility] LAB HEMETOLOGY METHOD 05/08/2025 12:[facility] Hemoglobin 11.7(L) 12.5 - 16.0 g/dL LAB HEMETOLOGY METHOD 05/08/2025 12:02 PM EDT [facility] Hematocrit 35.4(L) 37.0 - 47.0 % LAB HEMETOLOGY METHOD 05/08/2025 12:02 PM EDT [facility] MCV 77.3(L) 78.0 - 100.0 FL LAB HEMETOLOGY METHOD 05/08/2025 12:02 PM EDT [facility] MCH 25.6 25.0 - 33.0 pcg LAB HEMETOLOGY METHOD 05/08/2025 12:02 PM EDT [facility] MCHC 33.0 32.0 - 36.0 g/dL LAB HEMETOLOGY METHOD 05/08/2025 12:02 PM EDT [facility] RDW 13.4 12.1 - 16.2 % LAB HEMETOLOGY METHOD 05/08/2025 12:02 PM EDT [facility] Platelets 233 150 - 450 K/mcL LAB HEMETOLOGY METHOD 05/08/2025 12:02 PM EDT [facility] MPV 8.8 7.4 - 11.4 FL LAB HEMETOLOGY METHOD 05/08/2025 12:02 PM EDT [facility] Neutrophils Relative 69.8 44.0 - 74.0 % LAB HEMETOLOGY METHOD 05/08/2025 12:02 PM EDT [facility] Lymphocytes Relative 24.3 20.0 - 48.0 % LAB HEMETOLOGY METHOD 05/08/2025 12:02 PM EDT [facility] Monocytes Relative 5.3 2.0 - 12.0 % LAB HEMETOLOGY METHOD 05/08/2025 12:02 PM EDT [facility] Eosinophils Relative 0.4 0.0 - 6.0 % LAB HEMETOLOGY METHOD 05/08/2025 12:02 PM EDT [facility] Basophils Relative 0.2 0.0 - 2.0 % LAB HEMETOLOGY METHOD 05/08/2025 12:02 PM EDT [facility] Neutrophils Absolute 4.50 1.80 - 7.80 K/mcL LAB HEMETOLOGY METHOD 05/08/2025 12:02 PM EDT [facility] Lymphocytes Absolute 1.60 1.00 - 3.20 K/mcL LAB HEMETOLOGY METHOD 05/08/2025 12:02 PM EDT [facility] Monocytes Absolute 0.30 0.00 - 0.80 K/mcL LAB HEMETOLOGY METHOD 05/08/2025 12:02 PM EDT [facility] Eosinophils Absolute 0.00 0.00 - 0.50 K/mcL LAB HEMETOLOGY METHOD 05/08/2025 12:02 PM EDT [facility] Basophils Absolute 0.00 0.00 - 0.20 K/mcL LAB HEMETOLOGY METHOD 05/08/2025 12:02 PM EDT [facility] Blood Venous blood specimen / Unknown Venipuncture / Unknown 05/08/2025 11:38 AM EDT 05/08/2025 11:50 AM EDT Tee Campbell MD LAB BLOOD ORDERABLES Final Result [facility] [address] [place] [address], * Phosphorus (05/08/2025 11:38 AM EDT) Phosphorus 3.1 2.5 - 4.5 mg/dL LAB CHEMISTRY METHOD 05/08/2025 12:27 PM EDT [facility] Blood Venous blood specimen / Unknown Venipuncture / Unknown 05/08/2025 11:38 AM EDT 05/08/2025 11:50 AM EDT Tee Campbell MD LAB BLOOD ORDERABLES Final Result [facility] [address] [place] [address], [place] [phone] * Magnesium (05/08/2025 11:38 AM EDT) Magnesium 2.1 1.7 - 2.8 mg/dL LAB CHEMISTRY METHOD 05/08/2025 12:27 PM EDT [facility] Blood Venous blood specimen / Unknown Venipuncture / Unknown 05/08/2025 11:38 AM EDT 05/08/2025 11:50 AM EDT Tee Campbell MD LAB BLOOD ORDERABLES Final Result Performing Organization Address [facility] Co de Phone Number [facility] [address] [place] [address], [place] [phone] * Ethanol (05/08/2025 11:38 AM EDT) Pathologist [facility] Ethanol Level <10 0 - 10 mg/dL LAB CHEMISTRY METHOD 05/08/2025 12:27 PM EDT [facility] Blood Venous blood specimen / Unknown Venipuncture / Unknown 05/08/2025 11:38 AM EDT 05/08/2025 11:50 AM EDT Narrative [facility] - 05/08/2025 12:27 PM EDT Medical Purpose Results of this test are to be used for medical purposes only Tee Campbell MD LAB BLOOD ORDERABLES Final Result Performing Organization Address City/[facility]/ZIP Co de Phone Number [facility] [address] [place] [address], [place] [phone] * (ABNORMAL) Comprehensive Metabolic Panel (CMP) (05/08/2025 11:38 AM EDT) Sodium 144 135 - 145 mmol/L LAB CHEMISTRY METHOD 05/08/2025 12:27 PM [facility] Potassium 3.3(L) 3.5 - 5.1 mmol/L LAB CHEMISTRY METHOD 05/08/2025 12:27 PM [facility] Chloride 108(H) 98 - 107 mmol/L LAB CHEMISTRY METHOD 05/08/2025 12:27 PM [facility] CO2 24 24 - 32 mmol/L LAB CHEMISTRY METHOD 05/08/2025 12:27 PM [facility] Anion Gap 12 5 - 14 LAB CHEMISTRY METHOD 05/08/2025 12:27 PM [facility] Glucose 112 70 - 199 mg/dL LAB CHEMISTRY METHOD 05/08/2025 12:27 PM [facility] BUN 15 7 - 17 mg/dL LAB CHEMISTRY METHOD 05/08/2025 12:27 PM [facility] Creatinine 1.10(H) 0.50 - 1.00 mg/dL LAB CHEMISTRY METHOD 05/08/2025 12:27 PM [facility] eGFR 55(L) >=60 mL/min/1. 73m2 LAB CHEMISTRY METHOD 05/08/2025 12:27 PM [facility] Comment:Calculation based on the Chronic Kidney Disease Epidemiology Collaboration (CKD-EPI) equation refit without adjustment for race. BUN/Creatinine Ratio 13.6 12.0 - 20.0 LAB CHEMISTRY METHOD 05/08/2025 12:27 PM [facility] Calcium 8.2(L) 8.4 - 10.2 mg/dL LAB CHEMISTRY METHOD 05/08/2025 12:27 PM [facility] AST (SGOT) 18 5 - 40 unit/L LAB CHEMISTRY METHOD 05/08/2025 12:27 PM [facility] ALT (SGPT) 16 7 - 52 unit/L LAB CHEMISTRY METHOD 05/08/2025 12:27 PM EDT [facility] Alkaline Phosphatase 94 34 - 104 unit/L LAB CHEMISTRY METHOD 05/08/2025 12:27 PM EDT [facility] Total Protein 6.4 6.4 - 8.5 g/dL LAB CHEMISTRY METHOD 05/08/2025 12:27 PM EDT [facility] Albumin 4.1 3.5 - 5.0 g/dL LAB CHEMISTRY METHOD 05/08/2025 12:27 PM EDT [facility] Total Bilirubin 0.4 0.3 - 1.0 mg/dL LAB CHEMISTRY METHOD 05/08/2025 12:27 PM EDT [facility] Blood Venous blood specimen / Unknown Venipuncture / Unknown 05/08/2025 11:38 AM EDT 05/08/2025 11:50 AM EDT Tee Campbell MD LAB BLOOD ORDERABLES Final Result [facility] [address] [place] [address], [place] [phone] * POCT Glucose, blood (05/08/2025 10:21 AM EDT) [facility] Glucose POCT 161 70 - 199 mg/dL 05/08/2025 10:22 AM EDT [facility] Comment: Fasting Reference Range: 70-99 mg/dL Non-Fasting Reference Range: 70-199 mg/dL Blood Capillary blood specimen / Unknown 05/08/2025 10:21 AM EDT 05/08/2025 10:23 AM EDT us Tee Campbell MD LAB POINT OF CARE T EST DOCKED DEVICE UNSOLICITED RESULTS Final Result [facility] [address] [place] [address], [place] [phone] from Last 3 Months Insurance MEDICAID - [place] [employer] MEDICARE Member Subscriber Plan / Payer (Ef fective 2023-Present) Name:MALLORY GUERRERO Relation to Subscriber:Self Name:Mallory Guerrero Payer ID:[id number] Group ID:[id number] Type:Not on file Address: [address] [place] [address] Care Teams Senior Data Integration Developer Relationship Specialty Start Date End Date Physician, No Pcp PCP - General 05/08/25
--- OUTSIDE RECORDS SUMMARY | 2025-06-19 13:39 | XMS_ITS | Encounter Summary ---
Author Organization [employer] Address [address] [place] [address] 7 [place] [address] Care Team Providers Care Seam Checker Name Role Phone Name, Ham HERRING Primary Care Provider Marya Echavarria PharmD Unavailable [phone] Reason for Visit * Reason Onset Date Comments Pre Op 10/04/2024 Encounter Details Date Type Department Care Team ([facility] st Contact Info) Description 10/04/2024 Telephone [facility] MEDICINE [address] [place] [address] Name, MD Ham [address] [place] [address] Pre Op Social History Tobacco Use Types [...] 11/07/24 Surgical procedure being done: Cistoscopy with Union distention of the Blader Type of anesthesia: general anesthesia Lab needed: Yes EKG: Yes Surgeon's name: Dr. Hoffman Facility name: [facility] Surgeon's office number: [phone] Surgeon's office fax number: [phone] Contact name (person you spoke with): Xiomara Last office note from surgeon requested: No Send Message to Yajaira Ramírez and Orestes Allan documented in this encounter Plan of Treatment Upcoming Encounters Date Type Department Care Team (Late st Contact Info) Description 06/26/2025 1:00 PM EST Office Visit [facility] OPTOMETRY [address] [place] [address] TarkaSabrina, OD [address] [place] [address] 06/27/2025 11:15 AM EST Office Visit [facility] MEDICINE [address] [place] [address] Name[place] [address] documented as of this encounter Visit Diagnoses Not on filedocumented in this encounter Additional Health Concerns Assessment Noted Time PHQ-9 Depression Total Score: 24 024 11:40 AM EDT documented as of this encounter Care Teams Seam Checker Relationship Specialty Start Date End Date [place], [place] [address] PCP - General Family Medicine 01/28/16 Marya Echavarria, [place] [address] [place] [address] Pharmacist Internal Medicine 01/11/25 06/18/25 documented as of this encounter
--- OUTSIDE RECORDS SUMMARY | 2025-06-19 13:39 | XMS_ITS | Encounter Summary ---
Author Organization [employer] Address [address] [facility] 7t [place] [address] Care Team Providers Care Bleacher Sulfite Pulp Name Role Phone Name, Ham HERRING Primary Care Provider [phone] Marya Echavarria PharmD Unavailable [phone] Reason for Visit * Reason Comments Med Refill Encounter Details Date Type Department Care Team ([facility] st Contact Info) Description 04/18/2024 Refill [facility] [address] [place], [place] [phone] Name, MD Ham [address] [place] [address] Acute herpes zoster neuropathy Social History Tobacco [...] 1:00 PM EST Office Visit [facility] OPTOMETRY [address] [place] [address] Sabrina Wilson, OD [address] [place] [address] 06/27/2025 11:15 AM EST Office Visit [facility] MED[facility]INE [address] [place] [address] Name, MD Ham [address] [place] [address] documented as of this encounter Visit Diagnoses Diagnosis Acute herpes zoster neuropathy documented in this encounter Additional Health Concerns Assessment Noted Time PHQ-9 Depression Total Score: 11 024 3:36 PM EDT documented as of this encounter Care Teams Bleacher Sulfite Pulp Relationship Specialty Start Date End Date Name, MD Ham [address] [place] [address] PCP - General Family Medicine 01/28/16 Marya Echavarria PharmD [address] [place] [address] Pharmacist Internal Medicine 01/11/25 06/18/25 documented as of this encounter
--- OUTSIDE RECORDS SUMMARY | 2025-06-19 13:39 | XMS_ITS | Encounter Summary ---
Author Organization [employer] Address [address] [place] [address] 7t [place] [address] Care Team Providers Care House Builder Name Role Phone Name, Ham HERRING Primary Care Provider [phone] Marya Echavarria PharmD Unavailable [phone] Reason for Visit * Reason Onset Date Comments Med Refill 06/08/2025 Encounter Details Date Type Department Care Team ([facility] st Contact Info) Description 06/08/2025 Telephone [facility] MED[facility]INE [address] [place] [address] Name, MD Ham [address] [place] [address] Med Refill Social History Tobacco Use Types [...] Miscellaneous Notes * Telephone Encounter - Amber Evertet LPN - 06/08/2025 11:01 AM EDT Please review request medication was discontinued. * Telephone Encounter - Case Wong - 06/08/2025 10:57 AM EDT TC from pt requesting medication refill. Medications needing refill: naproxen (Naprosyn) 500 MG To be sent to: [id number] [address] [facility] documented in this encounter Plan of Treatment Upcoming Encounters Date Type Department Care Team (Late st Contact Info) Description 06/26/2025 1:00 PM EST Office Visit [facility] OPTOMETRY [address] [place] [address] Sabrina Wilson, OD [address] [place] [address] 06/27/2025 11:15 AM EST Office Visit [facility] MED[facility] [address] [place] [address] Name, MD Ham [address] [place] [address] documented as of this encounter Visit Diagnoses Not on filedocumented in this encounter Additional Health Concerns Assessment Noted Time PHQ-9 Depression Total Score: 5 04/02/20 25 9:52 AM EDT documented as of this encounter Care Teams House Builder Relationship Specialty Start Date End Date Name, MD Ham [address] [place] [address] PCP - General Family Medicine 01/28/16 Marya Echavarria PharmD [address] [place] [address] Pharmacist Internal Medicine 01/11/25 06/18/25 documented as of this encounter
--- OUTSIDE RECORDS SUMMARY | 2025-06-19 13:39 | XMS_ITS | Encounter Summary ---
Author Organization [employer] Address [address] [place] [address] 7t [place] [address] Care Team Providers Care Arborist Representative Name Role Phone Name, Ham HERRING Primary Care Provider [phone] Marya Echavarria PharmD Unavailable Encounter Details Date Type Department Care Team (Late Contact Info) Description 01/19/2023 Abstract [facility] MED[facility]INE [address] [place] [address] Name, MD Ham [address] [place] [address] Social History Tobacco Use Types Packs/Day Years [...] Description 06/26/2025 1:00 PM EST Office Visit [facility] OPTOMETRY [address] [place], [place] [phone] Sabrina Wilson, OD [address] [place] [address] 06/27/2025 11:15 AM EST Office Visit [facility] MEDICINE [address] [place] [address], [place] [address] Name, MD Ham [address] [place] [address] documented as of this encounter Visit Diagnoses Not on filedocumented in this encounter Care Teams Arborist Representative Relationship Specialty Start Date End Date Name, MD Ham [address] [place] [address] PCP - General Family Medicine 01/28/16 Marya Echavarria, LaurieD [address] [place] [address] Pharmacist Internal Medicine 01/11/25 06/18/25 documented as of this encounter
--- OUTSIDE RECORDS SUMMARY | 2025-06-19 13:40 | XMS_ITS | Encounter Summary ---
Author Organization [employer] Address [address] [place] [address] 7 [place] [address] Care Team Providers Care Business Development Manager Name Role Phone Name, Ham HERRING Primary Care Provider [phone] Marya Echavarria PharmD Unavailable [phone] Reason for Visit * Reason Onset Date Comments Appointment Request 04/17/2025 Encounter Details Date Type Department Care Team ([facility] st Contact Info) Description 04/17/2025 Telephone [facility] [address] [place] [address] Name, MD Ham [address] [place] [address] Appointment Request Social History Tobacco Use Types [...] to reschedule CDTM apt Contact pt at [phone] (iraqi) documented in this encounter Plan of Treatment Upcoming Encounters Date Type Department Care Team (Late st Contact Info) Description 06/26/2025 1:00 PM EST Office Visit [facility] OPTOMETRY [address] [place] [address] Sabrina Wilson, OD [address] [place] [address] 06/27/2025 11:15 AM EST Office Visit [facility] [address] [place] [address] Name, MD Ham [address] [place] [address] documented as of this encounter Visit Diagnoses Not on filedocumented in this encounter Additional Health Concerns Assessment Noted Time PHQ-9 Depression Total Score: 5 04/02/20 9:52 AM EDT documented as of this encounter Care Teams Business Development Manager Relationship Specialty Start Date End Date Name, MD Ham [address] [place] [address] PCP - General Family Medicine 01/28/16 Marya Echavarria PharmD [address] [place] [address] Pharmacist Internal Medicine 01/11/25 06/18/25 documented as of this encounter
--- OUTSIDE RECORDS SUMMARY | 2025-06-19 13:40 | XMS_ITS | Encounter Summary ---
Author Organization [employer] Address [address] [place] [address] 7t [place] [address] Care Team Providers Care Sales Leader Name Role Phone Name, Ham HERRING Primary Care Provider [phone] Marya Echavarria PharmD Unavailable Reason for Visit * Reason Comments Med Refill Encounter Details Date Type Department Care Team (Late st Contact Info) Description 04/18/[address] [facility] [address] [place] [address] Name, MD Ham [address] [place] [address] Social History Tobacco Use Types Packs/Day Years [...] Department Care Team (Late Contact Info) Description 06/26/2025 1:00 PM EST Office [facility] OPTOMETRY [address] [place] [address], OD [address] [place] [address] 06/27/2025 11:15 AM EST Office Visit [facility] [address] [facility] [place] [address] Name, MD Ham [facility] [place] [address] documented as of this encounter Visit Diagnoses Not on filedocumented in this encounter Care Teams Sales Leader Relationship Specialty Start Date End Date Name, MD Ham Ric[facility] [place] [address] PCP - General Family Medicine 01/28/16 Marya Echavarria PharmD [facility] [place] [address] Pharmacist Internal Medicine 01/11/25 06/18/25 documented as of this encounter
--- OUTSIDE RECORDS SUMMARY | 2025-06-19 13:40 | XMS_ITS | Encounter Summary ---
Author Organization [employer] Address [address] [facility] 7t [place] [address] Care Team Providers Care Remote Coders Name Role Phone Name, Ham HERRING Primary Care Provider [phone] Marya Echavarria PharmD Unavailable Reason for Visit * Reason Comments Med Refill Encounter Details Date Type Department Care Team ([facility] st Contact Info) Description 03/29/2025 Refill [facility] [address] [place] [address] Name, MD Ham [address] [place] [address] Social History Tobacco Use Types Packs/Day Years [...] Description 06/26/2025 1:00 PM EST Office Visit [facility] [address] [place] [address], OD [address] [place] [address] 06/27/2025 11:15 AM EST Office Visit [facility] [address] [place] [address] Name, MD Ham [address] [place] [address] documented as of this encounter Visit Diagnoses Not on filedocumented in this encounter Additional Health Concerns Assessment Noted Time PHQ-9 Depression Total Score: 24 024 11:40 AM EDT documented as of this encounter Care Teams Remote Coders Relationship Specialty Start Date End Date Name, MD Ham [address] [place] [address] PCP - General Family Medicine 01/28/16 Marya Echavarria PharmD [address] [place] [address] Pharmacist Internal Medicine 01/11/25 06/18/25 documented as of this encounter
--- OUTSIDE RECORDS SUMMARY | 2025-06-19 13:40 | XMS_ITS | Encounter Summary ---
Author Organization [employer] Address [address] [place] [address] 7t [place] [address] Care Team Providers Care English Division Chair Name Role Phone Name, Ham HERRING Primary Care Provider [phone] Marya Echavarria PharmD Unavailable [phone] Reason for Visit * Reason Comments Med Refill Encounter Details Date Type Department Care Team ([facility] st Contact Info) Description 12/28/2024 Refill [facility] [address] [place] [address] Ofelia Blum MD [address] [place] [address] [employer] Social History Tobacco Use Types Packs/Day [...] Description 06/26/2025 1:00 PM EST Office Visit [facility] [address] [place] [address] Tarka, Sabrina, OD [address] [place] [address] 06/27/2025 11:15 AM EST Office Visit [facility] [address] [place] [address] NameHam MD [address] [place] [address] documented as of this encounter Visit Diagnoses Diagnosis Intertrigo Other specified erythematous condition documented in this encounter Additional Health Concerns Assessment Noted Time PHQ-9 Depression Total Score: 24 024 11:40 AM EDT documented as of this encounter Care Teams English Division Chair Relationship Specialty Start Date End Date Name, MD Ham [address] [place] [address] PCP - General Family Medicine 01/28/16 Marya Echavarria PharmD [address] [place] [address] Pharmacist Internal Medicine 01/11/25 06/18/25 documented as of this encounter
--- OUTSIDE RECORDS SUMMARY | 2025-06-19 13:40 | XMS_ITS | Encounter Summary ---
Author Organization [employer] Address [address] [place] [address] 7t [place] [address] Care Team Providers Care Peer Health Promoter Name Role Phone Name, Ham HERRING Primary Care Provider [phone] Marya Echavarria PharmD Unavailable [phone] Reason for Visit * Reason Onset Date Comments Med Refill 05/28/2025 Encounter Details Date Type Department Care Team ([facility] st Contact Info) Description 05/28/2025 Telephone [facility] [address] [place] [address] Name, MD Ham [address] [place] [address] Med Refill Social History Tobacco Use Types [...] 10:16 AM EDT Medication was sent to [facility] #[id number] on 02/07/25 with 11 refills. * Telephone Encounter - Fanny Bustamante - 05/28/2025 10:06 AM EDT TC from pt requesting medication refill. Medications needing refill : Tirzepatide (Mounjaro) 5 MG/0.5ML solution auto-injector To be sent to: [id number] - [place], [place] - [address] [facility] documented in this encounter Plan of Treatment Upcoming Encounters Date Type Department Care Team (Late st Contact Info) Description 06/26/2025 1:00 PM EST Office Visit [facility] [address] [place], [place] [phone], OD [address] [place] [address] 06/27/2025 11:15 AM EST Office Visit [facility] [address] [facility] [place] [address] Name, [place] [address] documented as of this encounter Visit Diagnoses Not on filedocumented in this encounter Additional Health Concerns Assessment Noted Time PHQ-9 Depression Total Score: 04/02/20 9:52 AM EDT documented as of this encounter Care Teams Peer Health Promoter Relationship Specialty Start Date End Date Name, [place] [address] PCP - General Family Medicine 01/28/16 Marya Echavarria PharmD [address] [place] [address] Pharmacist Internal Medicine 01/11/25 06/18/25 documented as of this encounter
[2025-06-19 14:08] LABS: Anion Gap 11 (12-20); Blood Urea Nitrogen 18 mg/dL (9-16); Calcium 9.8 mg/dL (8.4-10.2); Carbon Dioxide 26 mmol/L (22-29); Chloride 106 mmol/L (96-108); Estimated Glomerular Filt Rate > 60; Potassium 4.1 mmol/L (3.3-5.1); Sodium 139 mmol/L (135-145)
[2025-06-19 14:30] LABS: Microalbum/Creatinine Ratio Ur 10.2 ug/mg cr (<30)
== END 2025-06-19 11:35 | disposition home or self-care (01) ==
LOC: HO.HHCL 11:34
PROVIDERS: Emergency Medicine; PCP Internal Medicine Geriatric Medicine; Visit Provider Internal Medicine Geriatric Medicine
DX: E87.6 Hypokalemia (principal); E11.9 Type 2 diabetes mellitus without complications
CPT/HCPCS: 36415; 80048; 82043; 82570

== ENCOUNTER 2025-08-07 09:47 | Outpatient (AMB) | payer OTHER, SELFPAY ==
--- NOTE | 2025-08-07 10:15 | A.OFFVIS_ITS ---
Vital Signs 08/07/25 10:16 Height 5 ft 2 in Weight 123 lb 7.342 oz BMI 22.6 BP 122/74 Blood Pressure Location Lt brachial Position Sitting Pulse 85 Intake Visit Reasons: ED follow up (NS) Intake Note: Follow-up from ED in May with prolong QT on Ekg c/o sob at times Program Control Analyst Required: No Allergies empagliflozin Adverse Reaction (Verified 06/07/25 14:06) Gastrointestinal Upset Medication List - Last Reconciled 08/07/25 by Bhavik Jones MD acetaminophen 650 mg (2 x 325 mg) PO Q6H PRN alprazolam 1 mg PO QID PRN 30 days bisacodyl 10 mg (2 x 5 mg) PO BEDTIME brimonidine-timolol 0.2-0.5 % (Combigan) 1 drp ophthalmic-Right BID cariprazine (Vraylar) 3 mg PO BEDTIME cephalexin 250 mg PO DAILY 30 days dicyclomine 10 mg PO QID Held on 06/07/25. Instructions: Doctor's Order famotidine 40 mg PO BEDTIME latanoprost 0.005% 1 drp ophthalmic (eye) BID Linzess (linaclotide) 290 mcg PO DAILY NS metformin 500 mg PO BID 30 days methylphenidate HCl ER 20 mg PO BID 30 days misoprostol 200 mcg PO BID polyethylene glycol 3350 17 grams PO DAILY prazosin 5 mg PO BEDTIME 30 days prazosin 2 mg (2 x 1 mg) PO BEDTIME 30 days prucalopride 2 mg PO DAILY rabeprazole 20 mg PO BID sennosides (senna) 17.2 mg (2 x 8.6 mg) PO BEDTIME simethicone 180 mg PO QID timolol maleate 0.5% 1 drp ophthalmic-Right BID venlafaxine ER 150 mg PO DAILY 30 days zolpidem 10 mg PO BEDTIME PRN 30 days HPI Comments Details: Makenna comes for follow-up. I had seen her in the hospital when she was admitted to behavioral health unit because of QT prolongation which was suspected to be due to Seroquel use. She is currently off Seroquel and comes for follow up visit for that. Her QT interval today is within normal limits. She has adequate mental health. However today she says that whenever she is doing gardening or exertional activity she gets short of breath with retrosternal chest pressure and diaphoresis. These symptoms has been going on for awhile. She has not had symptoms at rest. She has prior history of diabetes but no prior vascular disease or heart disease that she recalls. [facility] Medical History Bipolar disorder PTSD (post-traumatic stress disorder) Depression Anxiety Fibromyalgia Schizophrenia Anemia Ileus Tubular adenoma of colon History of pancreatitis Irritable bowel syndrome with constipation Diverticulitis GERD (gastroesophageal reflux disease) Chronic idiopathic constipation Surgical History History of esophagogastroduodenoscopy (EGD) Hx of colonoscopy Family History Father No problems noted. Mother Diabetes Melanoma Family history of hypertension Family history of diabetes mellitus Social History Household Members: Spouse Housing: Unknown / Unable to assess Are you a primary career transition specialist to a significant other at home: No Do you presently have visiting nurse or other home services: No Alcohol intake: never Patient Tobacco Use Status: Never used Tobacco Second Hand Smoke Exposure: No service: No Current occupational status: disabled Sexual orientation: Straight/Heterosexual Review of Systems Const Denies chills, Denies fatigue, Denies fever(s), Denies frequent falls, Denies weakness, Denies weight gain and Denies weight loss ENT Denies dizziness Card Denies chest pain, Denies leg edema, Denies lightheadedness, Denies palpitations, Denies dyspnea, Denies dyspnea on exertion, Denies orthopnea and Denies other (loss of consciousness) Resp Denies cough, Denies dyspnea and Denies dyspnea on exertion GI Denies hematochezia and Denies change in stool character Musc Denies abnormal gait, Denies muscle weakness, Denies numbness, Denies radiating pain into limb and Denies tingling Neuro Denies abnormal gait, Denies dizziness, Denies frequent falls, Denies numbness, Denies tingling and Denies weakness Endo Denies fatigue and Denies palpitations Physical Exam Vital Signs: Last Vital Signs Pulse 85 08/07/25 10:16 BP 122/74 08/07/25 10:16 BMI result Body Mass Index 22.6 Const General: cooperative, comfortable, no acute distress and awake Nutritional Appearance: average body habitus Orientation/consciousness: patient oriented x3 Neck Neck: Yes trachea midline, Yes supple and Yes no JVD Resp Effort & Inspection: normal respiratory effort Auscultation: clear to auscultation bilaterally Cardio Jugular venous distension: no JVD Rate: regular rate Rhythm: regular rhythm Heart sounds: S1 normal heart sound present, S2 normal heart sound present, no click, no gallops and no murmurs GI Auscultation: normal bowel sounds Skin General skin exam: no rashes or lesions noted Neuro General: patient oriented x3 and no focal motor deficits Extrem General: Yes no clubbing, cyanosis or edema Office Procedures EKG Details: EKGs shows normal sinus rhythm with low-voltage QRS with nonspecific T-wave changes rightward axis with normal QTC interval 83274-[id number], Complete Assessment & Plan Assessment & Plan (1) Exertional chest pain: Code(s): R07.9 - Chest pain, unspecified Category: Medical Plan: Patient today complains of symptoms that are concerning for possible myocardial ischemia given her longstanding diabetes this needs to be ruled out. Will suggest a exercise myocardial perfusion imaging to assess for the same given her diabetes advanced age as well as abnormal EKGs. This will help with further diagnose take workup that may need to be undertaken. Also suggest an echocardiogram. Till we complete cardiac testing she is advised to avoid strenuous exertion. She understands. (2) Prolonged QT interval: Code(s): R94.31 - Abnormal electrocardiogram [ECG] [EKG] Plan: Prolonged QT on EKGs which was suspected to be due to Seroquel use. She is currently off Seroquel and her QT interval has normalized. In the future if she requires further medications for mental health that are necessary and that can potentially prolonged QT interval please perform EKGs as she has tendency for QT prolongation. Maintain electrolytes with potassium above 4 and magnesium above 2. Her current medications are not causing any abnormality of cardiac repolarization. Will follow up in the clinic in 2 months time, sooner PRN. Thank you for allowing me to partake in her care Medications: Changed From cariprazine (Vraylar) 3 mg PO BEDTIME 30 days 30 caps 0RF To cariprazine (Vraylar) 3 mg PO BEDTIME Coding Level of Care Code Est Pt Level 4 (92004) Diagnoses Exertional chest pain R07.9 Prolonged QT interval R94.31 CPT Codes EKG - CPT: 03440-[id number], Complete ([id number])
[2025-08-07 10:16] VITALS: BP 122/74; PULSE 85; BMI 22.6
--- OUTSIDE RECORDS SUMMARY | 2025-08-07 12:41 | XMS_ITS | Encounter Summary ---
Author Organization [employer] Address [address] [facility] 7t [place] [address] Care Team Providers Care Supervisor Type Photography Name Role Phone Name, Ham HERRING Primary Care Provider [phone] Marya Echavarria PharmD Unavailable [phone] Reason for Visit * Reason Comments Med Refill Encounter Details Date Type Department Care Team ([facility] st Contact Info) Description 04/18/2024 Refill [facility] [address] [place], [place] [id number] Name, MD Ham [address] [place] [address] Acute herpes zoster neuropathy Social History Tobacco [...] Care Team (Late st Contact Info) Description 08/16/2025 9:00 AM EST Office Visit [facility] [address] [place] [address] Sabrina Wilson, OD [address] [place] [address] 09/06/2025 9:00 AM EST Office Visit [facility] [address] [place] [address] Name, MD Ham [address] [place] [address] documented as of this encounter Visit Diagnoses Diagnosis Acute herpes zoster neuropathy documented in this encounter Additional Health Concerns Assessment Noted Time PHQ-9 Depression Total Score: 11 10/31/ 024 3:36 PM EDT documented as of this encounter Care Teams Supervisor Type Photography Relationship Specialty Start Date End Date Name, MD Ham [address] [place] [address] PCP - General Family Medicine 01/28/16 Marya Echavarria PharmD [address] [place] [phone] Pharmacist Internal Medicine 01/11/25 06/18/25 documented as of this encounter
--- OUTSIDE RECORDS SUMMARY | 2025-08-07 12:41 | XMS_ITS | Encounter Summary ---
Author Organization [employer] Address [address] [place] [address] 7t [place] [address] Care Team Providers Care Floorworker Lasting Name Role Phone Name, Ham HERRING Primary Care Provider [phone] Marya Echavarria PharmD Unavailable [phone] Reason for Visit * Reason Comments Med Refill Encounter Details Date Type Department Care Team ([facility] st Contact Info) Description 08/25/[address] [facility] [address] [place] [address] Name, MD Ham [address] [place] [address] Recurrent UTI Social History Tobacco Use Types [...] Description 08/16/2025 9:00 AM EST Office Visit [facility] [address] [place] [address] TarkaSabrina, OD [address] [place] [address] 09/06/2025 9:00 AM EST Office Visit [facility] [address] [place] [address] Name, MD Ham [address] [place] [address] documented as of this encounter Visit Diagnoses Diagnosis Recurrent UTI Urinary tract infection, site not specified documented in this encounter Additional Health Concerns Assessment Noted Time PHQ-9 Depression Total Score: 24 024 11:40 AM EDT documented as of this encounter Care Teams Floorworker Lasting Relationship Specialty Start Date End Date Name, MD Ham [address] [place] [address] PCP - General Family Medicine 01/28/16 Marya Echavarria PharmD [address] [place] [address] Pharmacist Internal Medicine 01/11/25 06/18/25 documented as of this encounter
--- OUTSIDE RECORDS SUMMARY | 2025-08-07 12:41 | XMS_ITS | Clinical Summary ---
Author Organization [employer] Address [address] [place] [address] [address] [place] [address] Care Team Providers Care Superintendent Recreation Name Role Phone Name, Ham HERRING Primary Care Provider [phone] Allergies Active Allergy Reactions Criticality Noted Date Comments Empagliflozin Low 09/11/2020 UTI Medications * This document contains information received from the source organization and may not represent a complete record from that organization. ALPRAZolam (Xanax) 1 MG tablet Take 1 mg by mouth if needed in the morning, at noon, in the evening, and at bedtime for anxiety. 3 Active dicyclomine (Bentyl) 10 MG capsule 3 Active Linzess 290 MCG capsule 3 Active venlafaxine XR (Effexor XR) 150 MG 24 hr capsule Take 150 mg by mouth in the morning. 2 Active Simethicone Ultra Strength 180 MG capsule TAKE 1 CAPSULE BY MOUTH FOUR TIMES DAILY AFTER MEALS 2 Active Creon 83289-04204 units capsule Take 1 capsule by mouth [...] into both eyes at bedtime. 4 Active methylphenidate ER (Metadate ER) 20 MG CR tablet Take 1 tablet by mouth 2 times daily. 5 Active Combigan 0.2-0.5 % ophthalmic solution instill 1 drop in both eyes twice daily Active Acetaminophen Extra Strength 500 MG tablet Take 2 tablets by mouth every 6 (six) hours if needed for pain. 5 Active Blood Glucose Monitoring Suppl (FreeStyle Precision Issac System) w/Device kitIndications: Type 2 diabetes mellitus without complication, without long-term current use of insulin ([facility]) 1 each Once per day. 1 kit 5 Active glucose 4 g chewable tabletIndicatio ns:Type 2 diabetes mellitus without complication, without long-term current use of insulin ([facility]),Hypoglyce janiya Chew 4 tablets (16 g) if needed for low blood sugar. <70 mg/dL. Repeat treatment as needed. 40 tablet 5 5 01/12/20 26 Active glucose blood (FreeStyle Precision Issac Test) test stripIndication s:Type 2 diabetes mellitus without complication, without long-term current use of insulin ([facility]) Use to test blood sugar up once daily, as directed 50 each 11 5 Active FreeStyle lancetsIndicati ons:Type 2 diabetes mellitus without complication, without long-term current use of insulin ([facility]) 1 each by Other route Once per [...] 17G BY MOUTH EVERY DAY 5 Active clotrimazole-be tamethasone (Lotrisone) cream Apply topically 2 times daily. 5 Active lamoTRIgine (LaMICtal) 25 MG tablet Take 1 tablet by mouth once daily for 2 weeks then 2 tablets daily 5 Active risperiDONE (RisperDAL) 0.5 MG tablet Take 1 tablet by mouth 3 times daily. Active cephalexin (Keflex) 250 MG capsule Take 1 capsule by mouth Once per day. For recurrent UTI 5 Active Vraylar 4.5 MG capsule Take 1 capsule by mouth at bedtime. 5 Active famotidine (Pepcid) 40 MG tablet Take 40 mg by mouth at bedtime. 5 Active prazosin (Minipress) 2 MG capsule Take 6 mg by mouth at bedtime. 5 Active venlafaxine XR (Effexor XR) 75 MG 24 hr capsule Take 75 mg by mouth Once per day. In addition to 150 mg capsule 5 Active metFORMIN XR (Glucophage-XR) 500 MG 24 hr tabletIndicatio ns:Type 2 diabetes mellitus without complication, without long-term current use of insulin (HCC) Take 1 tablet (500 mg) by mouth with evening meal. Do not crush, chew, or split. 90 tablet 1 5 Active Tirzepatide (Mounjaro) 5 MG/0.5ML solution auto-injectorIn dications:Type 2 diabetes mellitus without complication, without long-term current use of insulin ([facility]) Inject 5 mg under the skin 1 (one) time per week. 2 mL 11 5 Active zolpidem (Ambien) 10 MG tablet Take 1 tablet (10 mg) by mouth at bedtime. 30 tablet 5 Active Active Problems Problem Noted Date Diagnosed Date Bipolar disorder, in partial remission, most recent episode manic ([facility]) 06/07/2025 Psychosis ([facility]) 06/07/2025 PTSD (post-traumatic stress disorder) 06/07/2025 QT [...] organization. Date Type Department Care Team Description 07/26/2025 9:00 AM EST Office Visit [facility] [address] [place], [place] [id number] TarkaNisaSabrina, OD Optic neuropathy, bilateral (Primary Dx); Glaucoma of both eyes, unspecified glaucoma type; Dry eyes, bilateral 07/26/2025 Travel 07/19/2025 Telephone [facility] [address] [place] [address] NameHam MD Statin Therapy 06/27/2025 11:15 AM EST Office Visit [facility] [address] [place] [address] Name, MD Ham Type 2 diabetes mellitus without complication, without long-term current use of insulin (HCC) (Primary Dx); Bipolar disorder, in partial remission, most recent episode manic (CMS/HCC) (HCC) 06/27/2025 Travel 06/26/2025 1:00 PM EST Office Visit [facility] [address] [place] [address] Sabrina Wilson, KAYLEEN Type 2 diabetes mellitus without ophthalmic manifestations (HCC) (Primary Dx); Optic neuropathy, bilateral; Combined forms of age-related cataract of both eyes; Presbyopia 06/26/2025 Travel 06/19/2025 Orders Only [facility] [address] [place] [phone] Perfecto Pat MD 06/19/2025 Travel 06/08/2025 Telephone [facility] [address] [place] [phone] Ham Hay MD Med Refill 06/07/2025 10:00 AM EDT Office Visit [address] [address] Ham Hay MD QT prolongation (Primary Dx); Bipolar disorder, in partial remission, most recent episode depressed (CMS/HCC) (HCC); Psychosis, unspecified psychosis type (CMS/HCC) (HCC); PTSD (post-traumatic stress disorder); Encounter for vaccination 06/07/2025 Travel 06/06/2025 Telephone [facility] [address] [place] [address] Ham Hay MD Chart Prep 05/28/[address] [phone] Ham Hay MD Med Refill 05/23/2025 Patient Outreach [facility] [address] [place] [address] Ham Hay MD Transition Of Care (Tcm) (HDF Scheduled. ) 05/17/2025 Telephone [facility] [address] [place] [phone] Ham Hay MD 05/16/2025 Telephone [facility] [address] [place] [phone] Ham Hay MD 05/09/2025 Orders Only GENERIC EXTERNAL DATA DEPARTMENT Provider, Generic External Data from Last 3 Months Immunizations Immunization Administration [...] drink = 0.6 oz pur e alcohol) Alcohol Answer Date Recorded How often do you have a drink containing alcohol ? 0 06/27/2025 How many drinks containing a lcohol do you have on a typical day when you are drinking? 0 06/27/2025 How often do you have six or more drinks on one occasion? 0 06/27/2025 Depression Answer Date Recorded Patient Health Questionnaire-9 Score 5 04/02/2025 Patient Health Questionnaire-9 Score 5 04/02/2025 Last PHQ-9: Questionnaire Data Not on file 0 04/02/2025 Housing Stability Answer Date Recorded What is your housing situation today? I have gracie barbra 11/01/[address] you li [...] Sign Reading Time Taken Comments Blood Pressure 120/72 06/27/2025 11:42 AM EST Pulse 89 06/27/2025 11:42 AM EST Temperature 36.8 C (98.3 F) 06/27/2025 11:42 AM EST Respiratory Rate 16 06/27/2025 11:42 AM EST Oxygen Saturation 99% 06/27/2025 11:42 AM EST Inhaled Oxygen Concentration - - Weight 57.4 kg (126 lb 9.6 oz) 06/27/2025 11:42 AM EST Height 154.9 cm (5' 1 ) 06/27/2025 11:42 AM EST Body Mass Index 23.92 06/27/2025 11:42 AM EST Plan of Treatment Upcoming Encounters Date Type Department Care Team (Late st Contact Info) Description 08/16/2025 9:00 AM EST Office Visit [facility] [address] [place] [address] Sabrina Wilson OD [address] [place] [address] 09/06/2025 9:00 AM EST Office Visit [facility] [address] [place] [address] Name, MD Ham [address] [place] [address] Health Maintenance Due Date Last Done Comments CT Colonography 1957 FIT DNA/Cologuard 1957 FIT 1955 FOBT 1955 Sigmoidoscopy 1955 Hepatitis C Screening 1975 Hepatitis A Vaccines (1 of 2 - Risk 2-dose series) 1976 RSV Patients and Patients Aged 60 years or older (1 - Risk 50-74 years 1-dose series) 2007 Zoster Vaccines (1 of 2) 2007 Hepatitis B Vaccines (1 of 3 - Risk 3-dose series) 2017 Mammogram 05/29/2025 05/29/2024, 05/10, 05/28/2023, Additional history exists SDOH Screening 10/20/2025 10/20/2024 COVID-19 Vaccine ( season) 2025 06/07/2025, 06/03/2022, 07/02/2021, Additional history exists Diabetes: Hemoglobin A1C 12/25/2025 025, 04/02/2025, 01/11/2025, Additional history exists Alcohol/Substance Use Screening 04/02/2026 04/02/2025 Depression Screening 04/02/2026 04/02/2025, 08/31/19 23 Diabetes: Foot Exam 04/02/2026 04/02/2025, 04/02/2025, 04/02/2025, Additional history exists Lipid Panel 04/02/2026 04/02/2025, 01/07, 01/19/2023, Additional history exists Colonoscopy 05/09/2026 05/09/2019 Colorectal Cancer Screening 05/09/2026 Diabetes: Urine Protein Screening 06/19/2026 06/19/2025, 01/18/2024, 01/19/2023, Additional history exists Tobacco Screening 06/27/2026 06/27/2025 Eye Exam 07/26/2027 07/26/2025, 07/09, 07/26/2025, Additional history exists DTaP/Tdap/Td Vaccines (3 - Td or Tdap) [...] on patient's age to complete this topic Goals Goal Patient Goal Type Associated Problems Recent Progress Patient-Stated? Author Help patients manage their type 2 diabetes Care Plan Help patients manage their type 2 diabetes Yolette Mcgee MA Weekly blood pressure task Care Plan Weekly blood pressure task Yolette Mcgee MA Help patients manage their type 2 diabetes Care Plan Help patients manage their type 2 diabetes Yolette Mcgee MA Patient has chronic kidney disease Care Plan Patient has chronic kidney disease No Yolette Mohan MA Weekly blood pressure task Care Plan Weekly blood pressure task No Yolette Mohan MA Patient has chronic kidney disease Care Plan Patient has chronic kidney disease Yolette Mcgee MA Weekly blood pressure task Care Plan Weekly blood pressure task No Sabrina Wilson OD Weekly blood pressure task Care Plan Weekly blood pressure task No Sabrina Wilson OD Patient has chronic kidney disease Care Plan Patient has chronic kidney disease No Sabrina Wilson OD Patient has chronic kidney disease Care Plan Patient has chronic kidney disease No Sarbina Wilson OD Weekly blood pressure task Care Plan Weekly blood pressure task No Case Wong Weekly blood pressure task Care Plan Weekly blood pressure task No Case Wong Patient has chronic kidney disease Care Plan Patient has chronic kidney disease No MarvinCase Patient has chronic kidney disease Care Plan Patient has chronic kidney disease No Jericho Wongiel Weekly blood pressure task Care Plan Weekly blood pressure task No Sabrina Wilson, KAYLEEN Weekly blood pressure task Care Plan Weekly blood pressure task No Nisa Wilsonica, OD Patient has chronic kidney disease Care Plan Patient has chronic kidney disease No Sonurayna Sabrina, OD Patient has chronic kidney disease Care Plan Patient has chronic kidney disease No Steve Sabrina, OD Procedures Procedure Name Priority Date/Time Associated Diagnosis Comments ECG 12-LEAD Routine 06/27/2025 12:57 PM EST Bipolar disorder, in partial remission, most recent episode manic ([facility]/HCC) (HCC) POCT GLYCATED HEMOGLOBIN, TOTAL Routine 06/27/2025 11:52 AM EST Type 2 diabetes mellitus without complication, without long-term current use of insulin ([facility]) POCT GLUCOSE (CPT-09008) Routine 06/27/2025 11:44 AM EST Type 2 diabetes mellitus without complication, without long-term current use of insulin ([facility]) OCT, OPTIC NERVE - OU - BOTH EYES Routine 06/26/2025 1:00 PM EST Optic neuropathy, bilateral ALBUMIN, RANDOM URINE W/CREATININE Routine 06/19/2025 11:41 AM EST BASIC METABOLIC PANEL Routine 06/19/2025 11:41 AM EST ECG 12-LEAD Routine 06/07/2025 10:38 AM EDT QT prolongation DRUG MONITOR, PANEL 1, SCREEN, URINE Routine 05/09/2025 9:37 AM EDT URINALYSIS, COMPLETE (INCLUDES MACRO AND MICRO) Routine 05/09/2025 9:37 AM EDT LIPID PANEL WITH REFLEX TO DIRECT LDL Routine 04/02/2025 10:15 AM EDT BI MAMMOGRAM SCREENING TOMOSYNTHESIS BILATERAL Routine 05/29/2024 11:38 AM EDT HM COLONOSCOPY Routine 05/09/2019 from Last 3 Months or Most Recently Relevant to Health Maintenance Results * ECG 12 lead (06/27/2025 12:57 PM EST) Only the most recent of2 resultswithin the time period is included. Narrative NameHam MD - 06/27/2025 12:57 PM EST EKG was normal. She has normal sinus rhythm with a heart rate of 88. QTc has normalized at 452 ms. us Ham Hay MD ECG ORDERABLES Final Result * (ABNORMAL) POCT Hgb A1c (06/27/2025 11:52 AM EST) Hemoglobin A1C 5.9(A) 4.0 - 5.7 % QC Media Lot # [id number] Lot# Expiration Date ,027 Blood 06/27/2025 11:5 2 AM EST us Ham Hay MD POINT OF CARE TEST ENTER/EDIT OR DERABLES Final Result * POCT Glucose (06/27/2025 11:44 AM EST) Glucose Blood, POC 146 60 - 200 mg/dL QC Media Lot # [id number] Lot# Expiration Date [id number] Blood Capillary blood specimen / Unknown 06/27/2025 11:44 AM EST us Ham Hay MD POINT OF CARE TEST ENTER/EDIT OR DERABLES Final Result * OCT, Optic Nerve - OU - Both Eyes (06/26/2025 1:00 PM EST) Narrative Sabrina Wilson, OD - 06/29/2025 3:43 PM EST Images from the original result were not included. OCT GLAUCOMA INTERPRETATION Reliability : OD: SS 39 - adequate, slightly reduced quality OS: SS 35 - adequate, slightly reduced quality Measurements RNFL: Avg RNFL thickness OD: 35 microns OS: 95 microns Test findings RNFL: RNFL OD: Diffusely thin in all 4 quadrants. Baseline. RNFL OS: Robust in all 4 quadrants. Baseline. Test findings GCL: GCL OD: Diffuse thin 360. Baseline. GCL OS: Borderline thin superior nasal/superior and inferior temporal. Baseline. Impression and Plan: Optic neuropathy OD. POAG suspect OS. Need to further investigate cause of atrophy OD - differential diagnosis includes traumatic glaucoma, primary open angle glaucoma, traumatic optic neuropathy and ischemic optic neuropathy. RTC for visual field in 2 weeks. us Sabrina Wilson OD OPHTH TOMOGRAPHY Final Result * Albumin, Random Urine W/Creatinine (06/19/2025 11:41 AM EST) Creatinine, Urine 263.66 mg/dL [facility] Microalbumin Urine 27.0 mg/L [facility] Microalbum Creatinine Ratio Ur 10.2 <30 ug/mg cr [facility] Comment:Albumin/Creatinine R atio Reference Ranges: Normal: < 30 ug/mg creatinine Microalbuminuria: 30 - 300 ug/mg creatinineClinical Albuminuria: > 300 ug/mg creatinine 06/19/2025 11:4 1 AM EST 06/19/2025 12:45 PM EST aHm Hay MD LAB URINE ORDERABLES Final Resul t [facility] [address] [place] [phone] * (ABNORMAL) Basic Metabolic Panel (06/19/2025 11:41 AM EST) Sodium 139 135 - 145 mmol/L [facility] Potassium 4.1 3.3 - 5.1 mmol/L [facility] Chloride 106 96 - 108 mmol/L [facility] Carbon Dioxide 26 22 - 29 mmol/L [facility] Anion Gap 11(L) 12 - 20 [facility] Urea Nitrogen (BUN) 18(H) 9 - 16 mg/dL [facility] Creatinine, Serum 0.84 0.5 - 1.4 mg/dL [facility] Estimated Glomerular Filt Rate >60 [facility] Comment:Chronic Kidney Disea se: Estimated GFR < 60 mL/min/[id number] Kidney Disease: Estimated GFR < 15 mL/min/1.73m2 Glucose 115 60 - 115 mg/dL [facility] Calcium 9.8 8.4 - 10.2 mg/dL [facility] 06/19/2025 11:4 1 AM EST 06/19/2025 1:34 PM EST us Perfecto Pat MD LAB BLOOD ORDERABLES Final Resul t [facility] [address] [place] [phone] * (ABNORMAL) Drug Monitoring, Panel 1, Screen, Urine (05/09/2025 9:37 AM EDT) Opiate Screen Urine Not Detected Not Detect [facility] Comment:Opiate cut-off is 30 0 ng/mL.Positive results are unconfirmed and should not be used fornon-medical purposes. Barbiturates, Urine Not Detected Not Detect [facility] Comment:Barbiturate cut-off is 200 ng/mL.Positive results are unconfirmed and should not be used fornon-medical purposes. Phencyclidine Screen Urine Not Detected Not Detect [facility] Comment:Phencyclidine cut-of f is 25 ng/mL.Positive results are unconfirmed and should not be used fornon-medical purposes. Amphetamine Screen Urine Not Detected Not Detect [facility] Comment:Amphetamine cut-off is 1000 ng/mL.Positive results are unconfirmed and should not be used fornon-medical purposes. Benzodiazepines Screen Urine POSITIVE(A) Not Detect [facility] Comment:Benzodiazepine cut-o ff is 200 ng/mL.Positive results are unconfirmed and should not be used fornon-medical purposes. Cocaine Screen Urine Not Detected Not Detect [facility] Comment:Cocaine cut-off is 3 00 ng/mL.Positive results are unconfirmed and should not be used fornon-medical purposes. Cannabinoid Screen Urine Not Detected Not Detect [facility] Comment:Cannabinoid cut-off is 50 ng/mL.Positive results are unconfirmed and should not be used fornon-medical purposes. Methadone Screen, Urine Not Detected Not Detect ng/mL [facility] Comment:Methadone cut-off is 300 ng/mL.Positive results are unconfirmed and should not be used fornon-medical purposes. FENTANYL URINE Not Detected Not Detect [facility] Comment:Fentanyl cut-off is 1 ng/mL.Positive results are unconfirmed and should not be used fornon-medical purposes. Oxycodone Urine Screen Not Detected Not Detect ng/mL [facility] Comment:Oxycodone cut-off is 100 ng/mL.Positive results are unconfirmed and should not be used fornon-medical purposes. Buprenorphine Screen Not Detected Not Detect ng/mL [facility] Comment:Buprenorphine cut-of f is 5 ng/mL.Positive results are unconfirmed and should not be used fornon-medical purposes. 05/09/2025 9:37 AM EDT 05/09/2025 9:40 AM EDT us Generic External Data Provider LAB URINE ORDERAB LES Final Result [facility] [address] [place] [phone] * (ABNORMAL) Urinalysis Complete (05/09/2025 9:37 AM EDT) Color Urine Yellow [facility] Appearance Urine Clear [facility] PH 7.0 5.0 - 9.0 [facility] Glucose Urine UA 100(A) Negative mg/dL [facility] Urine Blood Negative Negative [facility] Specific Valders - Urine 1.015 1.005 - 1.025 [facility] Urine Protein Trace Neg-Trace mg/dL [facility] Urine Ketones >=160 Negative mg/dL [facility] Nitrite Urine Negative Negative [facility] Leukocyte Esterase Urine Trace(A) Negative [facility] RBC Urine 0-2 0 - 2 /HPF [facility] Urine WBC 0-5 0 - 5 /HPF [facility] Urine Squamous Epithelial Cell 0-2 0 - 2 /HPF [facility] Urine Bacteria None Seen None Seen [facility] Hyaline Casts, Urine 0-2 0 - 2 /LPF [facility] 05/09/2025 9:37 AM EDT 05/09/2025 9:40 AM EDT us Generic External Data Provider LAB URINE ORDERAB LES Final Result Performing Organization Address [facility] Co de Phone Number [facility] [address] [place] [phone] * Lipid Panel with Reflex to Direct LDL (04/02/2025 10:15 AM EDT) Triglycerides 145 <150 mg/dL [facility] Comment:Desirable Triglyceri de: less than 150 mg/dLBorderline High Triglyceride 150-199 mg/dLHigh Triglyceride: 200-499 mg/dLVery High Triglyceride: greater than or equal to 5OO mg/dL Cholesterol 167 <200 mg/dL [facility] Comment:Desirable Cholestero l: less than 200 mg/dLBorderline High Cholesterol: 200-239 mg/dLHigh Cholesterol: greater than 239 mg/dL LDL Cholesterol Calculated 81 <100 mg/dL [facility] Comment:Desirable LDL: less than 100 mg/dLNear Optimal/Above Optimal LDL: 110- 129 mg/dLBorderline High LDL: 130-159 mg/dLHigh LDL: 160-189 mg/dLVery High LDL: greater than or equal to 190 mg/dL HDL Cholesterol 57 >40 mg/dL [facility] Comment:Desirable HDL: great er than 40 mg/dL Note: This HDL assay may give artificially low results in patients with liver disease. 04/02/2025 10:1 5 AM EDT 04/02/2025 11:25 AM EDT us Ham Hay MD LAB BLOOD ORDERABLES Final Resul t Performing Organization Address City/[facility]/ZIP Co de Phone Number [facility] [address] [place] [phone] * BI Mammogram Screening Tomosynthesis Bilateral (05/29/2024 11:38 AM EDT) Anatomical Region Laterality Modality Breast Bilateral Mammography 05/29/2024 11:3 8 AM EDT Narrative 06/09/2024 10:51 AM EDT [facility] [address] [place] [address] Mammography Report Signed Patient: Makenna Ortiz MR#: [id number] : 1955 Acct:[id number] Age/Sex: 69 / F ADM Date: 05/29/24 Loc: HO.MAMMO Attending Dr: Ham Hay MD Ordering Physician: Ham Hay MD Results: 1Negative Date of Service: 05/29/24 Follow Up: 1 Year From Orig ina Mammogram Procedure(s): MM tomosynthesis screening BI Accession Number(s): [id number] cc: Ham Hay MD EXAMINATION: MM SCREENING [...] 06/09/24 1048 DD/ 1138 TD/TT: 05/29/24 1153 Trimmer Machine: Procedure Note Donotuseinterpreter, Image - 06/09/2024 [facility] [address] [place], [place] [address] Mammography Report Signed Patient: Makenna OrtizMR#: [id number] : 7Acct:[id number] Age/Sex: 69 / FADM Date: 05/29/24 Loc: HO.MAMMO Attending Dr: Ham Hay MD Ordering Physician: Ham Hay MDResults: 1Negative Date of Service: 05/29/24Follow Up: 1 Year From Orig inal Mammogram Procedure(s): MM tomosynthesis screening BI Accession Number(s): [id number] cc: Ham Hay MD EXAMINATION: MM SCREENING [...] OV> 06/09/24 1048 DD/ 1138 TD/TT: 05/29/24 115 Trimmer Machine: Ham Hay MD IM BI PROCEDURES Edited Result - Final * (ABNORMAL) Hm Colonoscopy (05/09/2019) Colonoscopy Abnormal(A ) Normal [facility] External Provider HEALTH MAINTENANCE Final Result from Last 3 Months or Most Recently Relevant to Health Maintenance Additional Health Concerns Active Problems Noted Date Diagnosed Date Help patients manage their type 2 diabetes 06/26 Weekly blood pressure task 06/26/2025 Help patients manage their type 2 diabetes 06/26 Patient has chronic kidney disease 06/26/2025 Weekly blood pressure task 06/26/2025 Patient has chronic kidney disease 06/26/2025 Weekly blood pressure task 06/26/2025 Weekly blood pressure task 06/26/2025 Patient has chronic kidney disease 06/26/2025 Patient has chronic kidney disease 06/26/2025 Weekly blood pressure task 07/19/2025 Weekly blood pressure task 07/19/2025 Patient has chronic kidney disease 07/19/2025 Patient has chronic kidney disease 07/19/2025 Weekly blood pressure task 07/26/2025 Weekly blood pressure task 07/26/2025 Patient has chronic kidney disease 07/26/2025 Patient has chronic kidney disease 07/26/2025 Insurance [facility] (O D-SNP) [place] [id number] Care Teams Superintendent Recreation Relationship Specialty Start Date End Date Name, MD Ham [address] [place] [address] [phone] PCP - General Family Medicine 01/28/16
--- OUTSIDE RECORDS SUMMARY | 2025-08-07 12:41 | XMS_ITS | Encounter Summary ---
Author Organization [employer] Address [address] [place] [address] 7t [place] [address] Care Team Providers Care Respiratory Care Technician Name Role Phone Name, Ham HERRING Primary Care Provider [phone] Marya Echavarria PharmD Unavailable [phone] Reason for Visit * Reason Comments Med Refill Encounter Details Date Type Department Care Team ([facility] st Contact Info) Description 05/30/2024 Refill [facility] MEDICINE [address] [place] [address] Name, MD Ham [address] [place] [address] Social History Tobacco Use Types Packs/Day Years [...] Description 08/16/2025 9:00 AM EST Office Visit [facility] OPTOMETRY [address] [place] [address], OD [address] [place] [address] 09/06/2025 9:00 AM EST Office Visit [facility] MEDICINE [address] [place] [address] Name, MD Ham [address] [place] [address] documented as of this encounter Visit Diagnoses Not on filedocumented in this encounter Additional Health Concerns Assessment Noted Time PHQ-9 Depression Total Score: 24 024 11:40 AM EDT documented as of this encounter Care Teams Respiratory Care Technician Relationship Specialty Start Date End Date Name, MD Ham [address] [place] [address] PCP - General Family Medicine 01/28/16 Marya Echavarria PharmD [address] [place] [address] Pharmacist Internal Medicine 01/11/25 06/18/25 documented as of this encounter
--- OUTSIDE RECORDS SUMMARY | 2025-08-07 12:41 | XMS_ITS | Patient Health Record ---
Author Organization [facility] Address [address] [place] [address] Care Team Providers Care Director For [employer] Name Role Phone Dragan Tejeda Jr Reason For Referral No Information Plan Of Treatment No Information
--- OUTSIDE RECORDS SUMMARY | 2025-08-07 12:41 | XMS_ITS | Encounter Summary ---
Author Organization [employer] Address [address] [place] [address] 7t [place] [address] Care Team Providers Care Critical Systems Technician Name Role Phone Name, Ham HERRING Primary Care Provider [phone] Marya Echavarria PharmD Unavailable [phone] Reason for Visit * Reason Onset Date Comments Med Refill 06/08/2025 Encounter Details Date Type Department Care Team ([facility] st Contact Info) Description 06/08/2025 Telephone [facility] MEDICINE 230 [place] [address] Name, MD Ham [address] [place] [address] Med Refill Social History Tobacco Use Types [...] Telephone Encounter - Amber Everett LPN - 06/08/2025 11:01 AM EDT Please review request medication was discontinued. * Telephone Encounter - Case Wong - 06/08/2025 10:57 AM EDT TC from pt requesting medication refill. Medications needing refill: naproxen (Naprosyn) 500 MG To be sent to: [id number] [address] [facility] documented in this encounter Plan of Treatment Upcoming Encounters Date Type Department Care Team (Late st Contact Info) Description 08/16/2025 9:00 AM EST Office Visit [facility] OPTOMETRY [address] [place] [address] Sabrina Wilson, OD [address] [place] [address] 09/06/2025 9:00 AM EST Office Visit [facility] MEDICINE 230 [place] [address] Name, MD Ham 230 [place] [address] documented as of this encounter Visit Diagnoses Not on filedocumented in this encounter Additional Health Concerns Assessment Noted Time PHQ-9 Depression Total Score: 5 04/02/20 25 9:52 AM EDT documented as of this encounter Care Teams Critical Systems Technician Relationship Specialty Start Date End Date Name, MD Ham [address] [place] [address] PCP - General Family Medicine 01/28/16 Marya Echavarria PharmD [address] [place] [address] Pharmacist Internal Medicine 01/11/25 06/18/25 documented as of this encounter
--- OUTSIDE RECORDS SUMMARY | 2025-08-07 12:41 | XMS_ITS | Encounter Summary ---
Author Organization [employer] Address [address] [facility] 7t [place] [address] Care Team Providers Care Percussion Welding Machine Operator Name Role Phone Name, Ham HERRING Primary Care Provider [phone] Marya Echavarria PharmD Unavailable [phone] Reason for Visit * Reason Onset Date Comments FYI 04/21/2024 Encounter Details Date Type Department Care Team ([facility] st Contact Info) Description 04/21/2024 Telephone [facility] MEDICINE 230 [place] [address] Name, MD Ham [address] [place] [address] FYI Social History Tobacco Use Types Packs/Day [...] - 04/21/2024 3:49 PM EDT Tc from [facility] calling to inform pcp pt has been admitted into hospital. If any questions you can contact [facility] at [phone]. documented in this encounter Plan of Treatment Upcoming Encounters Date Type Department Care Team (Late st Contact Info) Description 08/16/2025 9:00 AM EST Office Visit [facility] OPTOMETRY [address] [place] [address] Steve Sabrina, OD 267 [place] [address] 09/06/2025 9:00 AM EST Office Visit [facility] MEDICINE [address] [place] [address] Name, MD Ham [address] [place] [address] documented as of this encounter Visit Diagnoses Not on filedocumented in this encounter Additional Health Concerns Assessment Noted Time PHQ-9 Depression Total Score: 11 024 3:36 PM EDT documented as of this encounter Care Teams Percussion Welding Machine Operator Relationship Specialty Start Date End Date NameHam MD [address] [place] [address] PCP - General Family Medicine 01/28/16 Marya Echavarria, Tyler [address] [place] [address] Pharmacist Internal Medicine 01/11/25 06/18/25 documented as of this encounter
--- OUTSIDE RECORDS SUMMARY | 2025-08-07 12:42 | XMS_ITS | Encounter Summary ---
Author Organization [employer] [facility] [employer] Address [address] [place] [address] 7t [place] [address] Care Team Providers Care Bottle Capping Machine Operator Name Role Phone Name, Ham HERRING Primary Care Provider [phone] Marya Echavarria PharmD Unavailable [phone] Encounter Details Date Type Department Care Team (Late st Contact Info) Description 01/19/2023 Abstract [facility] MEDICINE [address] [place] [address] Name, MD Ham [address] [place] [address] Social History Tobacco Use Types Packs/Day Years [...] Description 08/16/2025 9:00 AM EST Office Visit [facility] OPTOMETRY [address] [place], [place] [phone] Sabrina Wilson, OD 267 [place], [place] [phone] 09/06/2025 9:00 AM EST Office Visit [facility] MEDICINE [address] [place] [address], [place] [address] Name, MD Ham [address] [place] [address] documented as of this encounter Visit Diagnoses Not on filedocumented in this encounter Care Teams Bottle Capping Machine Operator Relationship Specialty Start Date End Date Name, MD Ham [address] [place] [address] PCP - General Family Medicine 01/28/16 Marya Echavarria, LaurieD [address] [place] [address] Pharmacist Internal Medicine 01/11/25 06/18/25 documented as of this encounter
--- OUTSIDE RECORDS SUMMARY | 2025-08-07 12:42 | XMS_ITS | Clinical Summary ---
Author Organization [facility] Address [address] [place] [address] Phone Care Team Providers Care Mines Safety Engineer Name Role Phone Physician, No Pcp Primary [...] EDT Emergency [facility] Emergency [address] [place] [phone] Tee Campbell MD Weakness (Primary Dx); [...] on file Sexual Orientation Not on file Last Filed Vital Signs Vital Sign Reading [...] Screening 1957 Colorectal Cancer Screening: Colonoscopy 1955 Drug Screen 1957 Non-Opioid Controlled Substance Agreement 1957 Diabetes: Annual Foot Exam 1967 Diabetes: Annual Retina Eye Exam 1967 Hepatitis A Vaccines (1 of 2 - Risk 2-dose series) 1976 RSV Immunization Adult Patients (1 - Risk 50-74 years 1-dose series) 2007 Zoster Vaccines (1 of 2) 2007 Hepatitis B Vaccines (1 of 3 - Risk 3-dose series) 2017 Depression Screening 08/09/2024 COVID-19 Vaccine ( - season) 2025 Influenza Vaccine (#1) 2025 , [...] of2 resultswithin the time period is included. Ventricular Rate ECG 87 BPM GEMUSE Atrial Rate 87 BPM GEMUSE P-R Interval 222 ms GEMUSE QRS Duration 76 ms GEMUSE Q-T Interval 332 ms GEMUSE QTc 399 ms GEMUSE P Wave [place] 65 degrees GEMUSE R [place] 92 degrees GEMUSE T [place] 114 degrees GEMUSE ECG Interpretation Sinus rhythm [...] BLOOD GAS METHOD 05/08/2025 11:58 AM EDT [facility] Blood Venous blood specimen / Unknown Venipuncture / Unknown 05/08/2025 11:38 AM EDT 05/08/2025 11:50 AM EDT Tee Campbell MD LAB BLOOD ORDERABLES Final Result Performing Organization Address City/[facility]/ZIP Co de Phone Number [facility] [address] [place] [address], * Troponin I High Sensitivity (05/08/2025 11:38 AM EDT) [facility] High Sensitivity Troponin I 4 0 - 14 ng/L LAB CHEMISTRY METHOD 05/08/2025 12:29 PM EDT [facility] Blood Venous blood specimen / Unknown Venipuncture / Unknown 05/08/2025 11:38 AM EDT 05/08/2025 11:50 AM EDT Narrative [facility] - 05/08/2025 12:29 PM EDT HSTnI [...] method is an immunoenzymatic assay manufactured by [employer] and performed on the [employer] DxI 800. Tee Campbell MD LAB BLOOD ORDERABLES Final Result Performing Organization Address City/[facility]/ZIP Co de Phone Number [facility] [address] [place] [address], [place] [phone] * (ABNORMAL) CBC auto differential (05/08/2025 11:38 AM EDT) [facility] WBC 6.4 4.0 - 10.5 K/[facility] LAB HEMETOLOGY METHOD 05/08/2025 12:02 PM EDT [facility] RBC 4.58 4.20 - 5.40 M/[facility] LAB HEMETOLOGY METHOD 05/08/2025 12:02 PM EDT [facility] Hemoglobin 11.7(L) 12.5 - 16.0 g/dL LAB HEMETOLOGY METHOD 05/08/2025 12:02 PM EDT [facility] Hematocrit 35.4(L) 37.0 - 47.0 % LAB HEMETOLOGY METHOD 05/08/2025 12:02 PM EDT [facility] MCV 77.3(L) 78.0 - 100.0 FL LAB HEMETOLOGY METHOD 05/08/2025 12:02 PM EDT [facility] MCH 25.6 25.0 - 33.0 pcg LAB HEMETOLOGY METHOD 05/08/2025 12:02 PM EDT [facility] MCHC 33.0 32.0 - 36.0 g/dL LAB HEMETOLOGY METHOD 05/08/2025 12:02 PM EDT [facility] RDW 13.4 12.1 - 16.2 % LAB HEMETOLOGY METHOD 05/08/2025 12:02 PM EDT [facility] Platelets 233 150 - 450 K/mcL LAB HEMETOLOGY METHOD 05/08/2025 12:02 PM EDT [facility] MPV 8.8 7.4 - 11.4 FL LAB HEMETOLOGY METHOD 05/08/2025 12:02 PM EDT [facility] Neutrophils Relative 69.8 44.0 - 74.0 % LAB HEMETOLOGY METHOD 05/08/2025 12:02 PM EDT [facility] Lymphocytes Relative 24.3 20.0 - 48.0 % LAB HEMETOLOGY METHOD 05/08/2025 12:02 PM EDT [facility] Monocytes Relative 5.3 2.0 - 12.0 % LAB HEMETOLOGY METHOD 05/08/2025 12:02 PM EDT [facility] Eosinophils Relative 0.4 0.0 - 6.0 % LAB HEMETOLOGY METHOD 05/08/2025 12:02 PM EDT [facility] Basophils Relative 0.2 0.0 - 2.0 % LAB HEMETOLOGY METHOD 05/08/2025 12:02 PM EDT [facility] Neutrophils Absolute 4.50 1.80 - 7.80 K/mcL LAB HEMETOLOGY METHOD 05/08/2025 12:02 PM EDT [facility] Lymphocytes Absolute 1.60 1.00 - 3.20 K/mcL LAB HEMETOLOGY METHOD 05/08/2025 12:02 PM EDT [facility] Monocytes Absolute 0.30 0.00 - 0.80 K/mcL LAB HEMETOLOGY METHOD 05/08/2025 12:02 PM EDT [facility] Eosinophils Absolute 0.00 0.00 - 0.50 K/mcL LAB HEMETOLOGY METHOD 05/08/2025 12:02 PM EDT [facility] Basophils Absolute 0.00 0.00 - 0.20 K/mcL LAB HEMETOLOGY METHOD 05/08/2025 12:02 PM EDT [facility] Blood Venous blood specimen / Unknown Venipuncture / Unknown 05/08/2025 11:38 AM EDT 05/08/2025 11:50 AM EDT Tee Campbell MD LAB BLOOD ORDERABLES Final Result [facility] [address] [place] [address], * Phosphorus (05/08/2025 11:38 AM EDT) Phosphorus 3.1 2.5 - 4.5 mg/dL LAB CHEMISTRY METHOD 05/08/2025 12:27 PM EDT [facility] Blood Venous blood specimen / Unknown Venipuncture / Unknown 05/08/2025 11:38 AM EDT 05/08/2025 11:50 AM EDT Tee Campbell MD LAB BLOOD ORDERABLES Final Result [facility] [address] [place] [address], [place] [phone] * Magnesium (05/08/2025 11:38 AM EDT) Pathologist [facility] Magnesium 2.1 1.7 - 2.8 mg/dL LAB CHEMISTRY METHOD 05/08/2025 12:27 PM EDT [facility] Blood Venous blood specimen / Unknown Venipuncture / Unknown 05/08/2025 11:38 AM EDT 05/08/2025 11:50 AM EDT Tee Campbell MD LAB BLOOD ORDERABLES Final Result Performing Organization Address [facility]/ZIP Co de Phone Number [facility] [address] [place] [address], [place] [phone] * Ethanol (05/08/2025 11:38 AM EDT) [facility] Ethanol Level <10 0 - 10 mg/dL LAB CHEMISTRY METHOD 05/08/2025 12:27 PM EDT [facility] Blood Venous blood specimen / Unknown Venipuncture / Unknown 05/08/2025 11:38 AM EDT 05/08/2025 11:50 AM EDT Narrative [facility] - 05/08/2025 12:27 PM EDT Medical Purpose Results of this test are to be used for medical purposes only Tee Campbell MD LAB BLOOD ORDERABLES Final Result Performing Organization Address City/[facility]/ZIP Co de Phone Number [facility] [address] [place] [address], [place] [phone] * (ABNORMAL) Comprehensive Metabolic Panel (CMP) (05/08/2025 11:38 AM EDT) Sodium 144 135 - 145 mmol/L LAB CHEMISTRY METHOD 05/08/2025 12:27 PM [facility] Potassium 3.3(L) 3.5 - 5.1 mmol/L LAB CHEMISTRY METHOD 05/08/2025 12:27 PM [facility] Chloride 108(H) 98 - 107 mmol/L LAB CHEMISTRY METHOD 05/08/2025 12:27 PM [facility] CO2 24 24 - 32 mmol/L LAB CHEMISTRY METHOD 05/08/2025 12:27 PM [facility] Anion Gap 12 5 - 14 LAB CHEMISTRY METHOD 05/08/2025 12:27 PM [facility] Glucose 112 70 - 199 mg/dL LAB CHEMISTRY METHOD 05/08/2025 12:27 PM [facility] BUN 15 7 - 17 mg/dL LAB CHEMISTRY METHOD 05/08/2025 12:27 PM [facility] Creatinine 1.10(H) 0.50 - 1.00 mg/dL LAB CHEMISTRY METHOD 05/08/2025 12:27 PM [facility] eGFR 55(L) >=60 mL/min/1. 73m2 LAB CHEMISTRY METHOD 05/08/2025 12:27 PM T [facility] Comment:Calculation based on the Chronic Kidney Disease Epidemiology Collaboration (CKD-EPI) equation refit without adjustment for race. BUN/Creatinine Ratio 13.6 12.0 - 20.0 LAB CHEMISTRY METHOD 05/08/2025 12:27 PM [facility] Calcium 8.2(L) 8.4 - 10.2 mg/dL LAB CHEMISTRY METHOD 05/08/2025 12:27 PM [facility] AST (SGOT) 18 5 - 40 unit/L LAB CHEMISTRY METHOD 05/08/2025 12:27 PM [facility] ALT (SGPT) 16 7 - 52 unit/L LAB CHEMISTRY METHOD 05/08/2025 12:27 PM EDT [facility] Alkaline Phosphatase 94 34 - 104 unit/L LAB CHEMISTRY METHOD 05/08/2025 12:27 PM EDT [facility] Total Protein 6.4 6.4 - 8.5 g/dL LAB CHEMISTRY METHOD 05/08/2025 12:27 PM EDT [facility] Albumin 4.1 3.5 - 5.0 g/dL LAB CHEMISTRY METHOD 05/08/2025 12:27 PM EDT [facility] Total Bilirubin 0.4 0.3 - 1.0 mg/dL LAB CHEMISTRY METHOD 05/08/2025 12:27 PM EDT [facility] Blood Venous blood specimen / Unknown Venipuncture / Unknown 05/08/2025 11:38 AM EDT 05/08/2025 11:50 AM EDT us Tee Campbell MD LAB BLOOD ORDERABLES Final Result [facility] [address] [place] [address], [place] [phone] * POCT Glucose, blood (05/08/2025 10:21 AM EDT) [facility] Signature Glucose POCT 161 70 - 199 mg/dL 05/08/2025 10:22 AM EDT [facility] Comment: Fasting Reference Range: 70-99 mg/dL Non-Fasting Reference Range: 70-199 mg/dL Blood Capillary blood specimen / Unknown 05/08/2025 10:21 AM EDT 05/08/2025 10:23 AM EDT us Tee Campbell MD LAB POINT OF CARE T EST DOCKED DEVICE UNSOLICITED RESULTS Final Result [facility] [address] [place] [address] [place] [address], [place] [phone] from Last 3 Months Insurance MEDICAID - [place] [employer] MEDICARE Member Subscriber Plan / Payer (Ef fective 2023-Present) Name:MALLORY GUERRERO Relation to Subscriber:Self Name:Mallory Guerrero Payer ID:[id number] Group ID:[id number] Type:Not on file Address: [address] [place] [address] Care Teams Mines Safety Engineer Relationship Specialty Start Date End Date Physician, No Pcp PCP - General 05/08/25
--- OUTSIDE RECORDS SUMMARY | 2025-08-07 12:42 | XMS_ITS | Encounter Summary ---
Author Organization [employer] Address [address] [place] [address] 7 [place] [address] Care Team Providers Care Associate Professor Of Geology Name Role Phone Name, Ham HERRING Primary Care Provider Reason for Visit * Reason Onset Date Comments Statin Therapy 07/19/2025 Encounter Details Date Type Department Care Team ([facility] st Contact Info) Description 07/19/[address] [facility] MEDICINE [address] [place] [address] Name, MD Ham [address] [place] [address] Statin Therapy Social History Tobacco Use Types Packs/Day Years [...] encounter Miscellaneous Notes * Telephone Encounter - Lula Armas RN - 08/06/2025 9:53 AM EST Tc to Erin at [facility] to let them know per PCP I agree but she probably had a side effect in the past. I will discuss at her next visit . Advised Erin PCP would like to meet with pt to discuss the need for statin first before medication can be prescribed. Erin reports they will send over an exclusion form for the provider to review at pt next OV in case a new diagnosis is documented that pt should not be on a statin. Assisted Living Assistant verbalized understanding and no further questions at this time. * Telephone Encounter - Fanny Bustamante - 07/31/2025 9:17 AM EST Tc from pt Royal at [facility] requesting an update on satin paperwork Contact Royal at [phone] * Telephone Encounter - Case Marvin - 07/19/2025 3:30 PM EST Tc from oTnja with [facility] stating pt is non compliant with CMS measure statin therapy. Their [place] pt on the importance of statin therapy. Pt agreed to try a statin if provider agrees and is clinically appropriate. Any questions contact Tonja at [phone]. documented in this encounter Plan of Treatment Upcoming Encounters Date Type Department Care Team (Late st Contact Info) Description 08/16/2025 9:00 AM EST Office Visit [facility] OPTOMETRY [address] [place] [address] Sabrina Wilson OD [address] [place] [address] 09/06/2025 9:00 AM EST Office Visit [facility] MED[facility]INE [address] [place] [address] Name, MD Ham [address] [place] [address] documented as of this encounter Goals Goal Patient Goal Type Associated Problems Recent Progress Patient-Stated? Author Help patients manage their type 2 diabetes Care Plan Help patients manage their type 2 diabetes No Yolette Mohan MA Weekly blood pressure task Care Plan Weekly blood pressure task No Yolette Mohan MA Help patients manage their type 2 diabetes Care Plan Help patients manage their type 2 diabetes No Yolette Mohan MA Patient has chronic [...] chronic kidney disease No Sabrina Wilson OD Weekly blood pressure task Care Plan Weekly blood pressure task No Marvin Case Weekly blood pressure task Care Plan Weekly blood pressure task No Case Wong Patient has chronic kidney disease Care Plan Patient has chronic kidney disease No Case Wong Patient has chronic kidney disease Care Plan Patient has chronic kidney disease No Case Wong documented as of this encounter Visit Diagnoses Not on filedocumented in this encounter Additional Health Concerns Active Problems Noted Date [...] 07/19/2025 Patient has chronic kidney disease 07/19/2025 Assessment Noted Time PHQ-9 Depression Total Score: 5 04/02/20 25 9:52 AM EDT documented as of this encounter Care Teams Associate Professor Of Geology Relationship Specialty Start Date End Date Name, MD Ham [address] [place] [address] PCP - General Family Medicine 01/28/16 documented as of this encounter
--- OUTSIDE RECORDS SUMMARY | 2025-08-07 12:42 | XMS_ITS | Encounter Summary ---
Author Organization [employer] Address [address] [place] [address] 7t [place] [address] Care Team Providers Care Wound Care Rn Name Role Phone Name, Ham HERRING Primary Care Provider [phone] Marya Echavarria PharmD Unavailable Reason for Visit * Reason Comments Med Refill Encounter Details Date Type Department Care Team (Late st Contact Info) Description 04/18/2023 Refill [facility] [address] [place] [address] Name, MD Ham [address] [place] [address] Social History Tobacco Use Types Packs/Day Years [...] Department Care Team (Late Contact Info) Description 08/16/2025 9:00 AM EST Office Visit [facility] OPTOMETRY [address] [place] [address], OD [address] [place] [address] 09/06/2025 9:00 AM EST Office Visit [facility] MED[facility]INE [address] [place] [address] Name, [place] [address] documented as of this encounter Visit Diagnoses Not on filedocumented in this encounter Care Teams Wound Care Rn Relationship Specialty Start Date End Date Name, [place] [address] PCP - General Family Medicine 01/28/16 Mary[place] [address] Pharmacist Internal Medicine 01/11/25 06/18/25 documented as of this encounter
--- OUTSIDE RECORDS SUMMARY | 2025-08-07 12:42 | XMS_ITS | Encounter Summary ---
Author Organization [employer] Address [address] [facility] 7t [place] [address] Care Team Providers Care Drivers' Cash Clerk Name Role Phone Name, Ham HERRING Primary Care Provider [phone] Marya Echavarria PharmD Unavailable [phone] Reason for Visit * Reason Comments Med Refill Encounter Details Date Type Department Care Team ([facility] st Contact Info) Description 03/29/2025 Refill [facility] MEDICINE [address] [place] [address] Name, MD Ham [address] [place] [address] Social History Tobacco Use Types Packs/Day Years [...] Description 08/16/2025 9:00 AM EST Office Visit [facility] OPTOMETRY [address] [place] [address] Sabrina Wilson, OD [address] [place] [address] 09/06/2025 9:00 AM EST Office Visit [facility] MEDICINE [address] [place] [address] Name, MD Ham [address] [place] [address] documented as of this encounter Visit Diagnoses Not on filedocumented in this encounter Additional Health Concerns Assessment Noted Time PHQ-9 Depression Total Score: 24 024 11:40 AM EDT documented as of this encounter Care Teams Drivers' Cash Clerk Relationship Specialty Start Date End Date Name, MD Ham [address] [place] [address] PCP - General Family Medicine 01/28/16 Marya Echavarria PharmD [address] [place] [address] Pharmacist Internal Medicine 01/11/25 06/18/25 documented as of this encounter
--- OUTSIDE RECORDS SUMMARY | 2025-08-07 12:42 | XMS_ITS | Encounter Summary ---
Author Organization [employer] Address [address] [place] [address] 7[address] [place] [address] Care Team Providers Care Pourer Crane Ladle Name Role Phone Name, Ham HERRING Primary Care Provider [phone] Marya Echavarria PharmD Unavailable [phone] Encounter Details Date Type Department Care Team (Late Contact Info) Description 10/27/2022 Orders Only [facility] CHC MED & PEDS [address] [place], [place] [phone] Amber Everett LPN Social History Tobacco Use [...] Description 08/16/2025 9:00 AM EST Office Visit [facility] OPTOMETRY [address] [place], [place] [phone] Sabrina Wilson OD [address] [place], [place] [phone] 09/06/2025 9:00 AM EST Office Visit [facility] MEDICINE [address] [place], [place] [phone] Name, MD Ham [address] [place] [phone] documented as of this encounter Visit Diagnoses Not on filedocumented in this encounter Care Teams Pourer Crane Ladle Relationship Specialty Start Date End Date Name, MD Ham [address] [place] [id number] PCP - General Family Medicine 01/28/16 Marya Echavarria PharmD [address] [place] [phone] Pharmacist Internal Medicine 01/11/25 06/18/25 documented as of this encounter
--- OUTSIDE RECORDS SUMMARY | 2025-08-07 12:42 | XMS_ITS | Encounter Summary ---
Author Organization [employer] Address [address] [place] [address] 7t [place] [address] Care Team Providers Care Senior Care Manager Name Role Phone Name, Ham HERRING Primary Care Provider [phone] Marya Echavarria PharmD Unavailable [phone] Reason for Visit * Reason Comments Med Refill Encounter Details Date Type Department Care Team ([facility] st Contact Info) Description 12/28/2024 Refill [facility] MEDICINE [address] [place] [address] Ofelia Blum MD [address] [place] [address] [employer] Social History Tobacco Use Types Packs/Day [...] Description 08/16/2025 9:00 AM EST Office Visit [facility] OPTOMETRY [address] [place] [address] Tarka, Sabrina, OD [address] [place] [address] 09/06/2025 9:00 AM EST Office Visit [facility] MEDICINE [address] [place] [address] NameHam MD [address] [place] [address] documented as of this encounter Visit Diagnoses Diagnosis Intertrigo Other specified erythematous condition documented in this encounter Additional Health Concerns Assessment Noted Time PHQ-9 Depression Total Score: 24 024 11:40 AM EDT documented as of this encounter Care Teams Senior Care Manager Relationship Specialty Start Date End Date Name, MD Ham [address] [place] [id number] PCP - General Family Medicine 01/28/16 Marya Echavarria PharmD [address] [place] [address] Pharmacist Internal Medicine 01/11/25 06/18/25 documented as of this encounter
--- OUTSIDE RECORDS SUMMARY | 2025-08-07 12:42 | XMS_ITS | Encounter Summary ---
Author Organization [employer] Address [address] [place] [address] 7 [place] [address] Care Team Providers Care Bench Machine Operator Name Role Phone Name, Ham HERRING Primary Care Provider [phone] Marya Echavarria PharmD Unavailable [phone] Reason for Visit * Reason Onset Date Comments Pre Op 10/04/2024 Encounter Details Date Type Department Care Team (Late st Contact Info) Description 10/04/2024 Telephone [facility] MEDICINE [address] [place] [address] Name, MD Ham [address] [place] [address] Pre Op Social History Tobacco Use Types [...] 11/07/24 Surgical procedure being done: Cistoscopy with [place] distention of the Blader Type of anesthesia: general anesthesia Lab needed: Yes EKG: Yes Surgeon's name: Dr. Hoffman Facility name: [facility] [place] Surgeon's office number: [phone] Surgeon's office fax number: [phone] Contact name (person you spoke with): Xiomara Last office note from surgeon requested: No Send Message to Yajaira Ramírez and Orestes Allan documented in this encounter Plan of Treatment Upcoming Encounters Date Type Department Care Team (Late st Contact Info) Description 08/16/2025 9:00 AM EST Office Visit [facility] OPTOMETRY [address] [place] [address] Sabrina Wilson, OD [address] [place] [address] 09/06/2025 9:00 AM EST Office Visit [facility] MEDICINE [address] [place] [address] Name, [place] [address] documented as of this encounter Visit Diagnoses Not on filedocumented in this encounter Additional Health Concerns Assessment Noted Time PHQ-9 Depression Total Score: 24 024 11:40 AM EDT documented as of this encounter Care Teams Bench Machine Operator Relationship Specialty Start Date End Date Name, [place] [address] PCP - General Family Medicine 01/28/16 Marya Echavarria, [place] [address] [place] [address] Pharmacist Internal Medicine 01/11/25 06/18/25 documented as of this encounter
--- OUTSIDE RECORDS SUMMARY | 2025-08-07 12:42 | XMS_ITS | Encounter Summary ---
Author Organization [employer] Address [address] [place] [address] 7 [place] [address] Care Team Providers Care Child Care Nurse Name Role Phone Name, Ham HERRING Primary Care Provider [phone] Marya Echavarria PharmD Unavailable [phone] Encounter Details Date Type Department Care Team (Late st Contact Info) Description 07/14/2022 Abstract [facility] MEDICINE [address] [place] [phone] Provider, MD Meghan Social History Tobacco Use [...] Description 08/16/2025 9:00 AM EST Office Visit [facility] OPTOMETRY [address] [place] [address] Sabrina Wilson, OD [address] [place] [address] 09/06/2025 9:00 AM EST Office Visit [facility] MEDICINE [address] [place] [address] Ham Hay MD [address] [place] [address] documented as of this encounter Visit Diagnoses Not on filedocumented in this encounter Care Teams Child Care Nurse Relationship Specialty Start Date End Date Name, MD Ham [address] [place] [address] PCP - General Family Medicine 01/28/16 Marya Echavarria PharmD [address] [place] [address] Pharmacist Internal Medicine 01/11/25 06/18/25 documented as of this encounter
== END 2025-08-07 10:37 | disposition home or self-care (01) ==
LOC: HO.HCS 09:48
PROVIDERS: PCP Internal Medicine Geriatric Medicine; Visit Provider Internal Medicine Cardiovascular Disease
DX: R07.9 Chest pain, unspecified (principal); R94.31 Abnormal electrocardiogram [ECG] [EKG]
CPT/HCPCS: 93010; 99214

== ENCOUNTER → 2025-08-07 09:47 | Outpatient (BNVA) | payer OTHER, SELFPAY | PROVIDERS: PCP Internal Medicine Geriatric Medicine; Visit Provider Internal Medicine Cardiovascular Disease | DX: R07.89 Other chest pain (principal); R94.31 Abnormal electrocardiogram [ECG] [EKG]; E11.9 Type 2 diabetes mellitus without complications; Z79.84 Long term (current) use of oral hypoglycemic drugs | CPT/HCPCS: 93005; 99212 ==